=== PATIENT | male | born 1965 | race Caucasian/White ===

== ENCOUNTER 2016-09-26 12:57 | Emergency (ER) | payer OTHER ==
[~2016-09-26] VITALS: Ht 198.1 cm; Wt 90.0 kg
[~2016-09-26 12:57] MED LIST: ALBUAER3 INH; AMLO10TA2 PO; CARA1SUS3 PO; HYDR-3533 PO; PANT40TA3 PO; PROT40TA PO; SUCR1TAB PO; ZOFR4TAB3 SL
[2016-09-26 13:20] VITALS: BP 160/102; PULSE 89; RESP 18; TEMP 97.6; O2SAT 99
[2016-09-26] MEDS ORDERED: OXYC15TA PO (14:32)
[2016-09-26 14:33] VITALS: BP 166/105; PULSE 82; RESP 18; O2SAT 99
[2016-09-26] MEDS ORDERED: ONDANSETRON HCL 4 MG/2 ML VIAL IV PUSH ONE (15:00)
[2016-09-26] MEDS ORDERED: SODIUM CHLOR 0.9% 1000 ML INJ 1,000 ML IV ONE (15:00)
[2016-09-26] MEDS ORDERED: THIAMINE INJ 100 MG in SODIUM CHLORIDE 0.9% INJ 100 ML IV ONE (15:00)
--- NOTE | 2016-09-26 15:12 | PD ---
HPI Chief Complaint: Dizziness Time Seen by Provider: 14:53 Travel History International Travel<30 days: No Contact w/Intl Traveler<30days: No Traveled to known affect area: No History of Present Illness HPI This 51-year-old male is complaining of feeling lightheaded. He believes that he stood up and had a syncopal episode earlier. He has had some vomiting. He denies any chest pain. He is not aware of having syncope before. There is no witness to the syncope. He says that his last drink was 2 days ago. He does have a history of alcoholism. Review of chart shows that he was actually seen by Dr. Chang this morning and at that time he admitted that he had a pint of alcohol already. He has a history of cirrhosis secondary to alcohol, hepatitis B and hepatitis C. He says he has had worked illnesses in the past. He is complaining of some tremulousness. He has a history of GI bleed secondary to bleeding ulcer but denies recent vomiting of blood. He has a history of chronic pancreatitis PFSH Past Medical History Hx Anticoagulant Therapy: No Arthritis: Yes (RA) Asthma: No Blood Disorders: Yes (HEPATITIS B AND C NO TREATMENT) Anxiety: Yes Depression: Yes Heart Rhythm Problems: No Cancer: No Cardiovascular Problems: Yes (HTN) High Cholesterol: No Chemotherapy: No Chest Pain: Yes (PALPITATIONS) Congestive Heart Failure: No Cirrhosis: Yes COPD: Yes Cerebrovascular Accident: No Diabetes: No Diminished Hearing: No Endocrine: No Gastrointestinal Disorders: Yes (PANCREATITIS) GERD: Yes Genitourinary: No Headaches: Yes Hepatitis: Yes (B & C) Hiatal Hernia: No Heparin Induced Thrombocytopen: No Herniated Disk: Yes Hypertension: Yes Immune Disorder: No Implanted Vascular Access Dvce: Yes Insomnia: Yes Kidney Stones: No Musculoskeletal: Yes (CHRONIC BACK PAIN) Neurologic: Yes Psychiatric: Yes Reproductive: No Respiratory: No Integumentary: Yes (HX IV DRUG USE) Immunizations Current: Yes Migraines: Yes Pancreatitis: Yes (CHRONIC) Pneumonia: Yes Radiation Therapy: No Renal Failure: No Seizures: No Sickle Cell Disease: No Sleep Apnea: No Thyroid Disease: No Ulcer: No Tetanus Vaccination: < 5 Years PNEUMOCCOCAL Vaccine (Year): 2 Past Surgical History Abdominal Surgery: Yes (LIVER BIOPSY) AICD: No Arteriovenous Shunt: No Body Medical Devices: STEEL PLATE IN RIGHT ANKLE Cardiac Surgery: No Ear Surgery: No Endocrine Surgery: Yes (LIVER BIOPSY) Eye Surgery: No Genitourinary Surgery: No Gynecologic Surgery: No Hysterectomy: No Insulin Pump: No Joint Replacement: No Neurologic Surgery: No Oral Surgery: No Pacemaker: No Thoracic Surgery: Yes (CHEST TUBE- R/O TB 7 YEARS AGO) Tonsillectomy: Yes Other Surgery: Yes (RIGHT ANKLE PLATE/SCREWS) Social History Alcohol Use: No (none for 2 days) Tobacco Use: Yes (1/2 PPD) Substance Use: Yes (history of iv drug use) Allergies-Medications (Allergen,Severity, Reaction): Coded Allergies: Prednisone (Verified Allergy, Severe, Rash, 09/26/16) *MDRO Multi-Drug Resistant Organism (Verified Adverse Reaction, Unknown, ) MRSA arm wound 2008 MRSA PCR Screen negative 01/06/15 and 05/30/15. Cleared by Infection Control. Reported Meds & Prescriptions Reported Meds & Active Scripts Active Proair Hfa 8.5 GM Inh (Albuterol Sulfate) 90 Mcg/Act Aer 1 Puff INH Q4H PRN 108 mcg/actuation Amlodipine (Amlodipine Besylate) 10 Mg Tab 10 Mg PO DAILY Pantoprazole (Pantoprazole Sodium) 40 Mg Tab 40 Mg PO BID Reported Oxycodone (Oxycodone HCl) 15 Mg Tab 15 Mg PO Q8H PRN Sucralfate 1 Gm Tab 1 Gm PO QID on empty stomach Review of Systems General / Constitutional: No: Fever, Chills Eyes: No: Diploplia, Blurred Vision HENT: Positive: Lightheadedness, No: Headaches, Vertigo Cardiovascular: No: Chest Pain or Discomfort, Palpitations Respiratory: No: Cough, Shortness of Breath Gastrointestinal: Positive: Vomiting, Abdominal Pain Genitourinary: No: Urgency, Frequency Musculoskeletal: No: Myalgias Skin: No Rash Neurologic: No: Weakness Psychiatric: Positive: Substance Abuse Hematologic/Lymphatic: No: Easy Bruising Physical Exam Narrative GENERAL: Well-developed male SKIN: Warm and dry. He smells of alcohol HEAD: Atraumatic. Normocephalic. EYES: Pupils equal and round. No scleral icterus. No injection or drainage. ENT: No nasal bleeding or discharge. Mucous membranes pink and moist. NECK: Trachea midline. No JVD. CARDIOVASCULAR: Regular rate and rhythm. No murmur appreciated. RESPIRATORY: No accessory muscle use. Clear to auscultation. Breath sounds equal bilaterally. GASTROINTESTINAL: Abdomen soft, there is some epigastric tenderness, nondistended. Hepatic and splenic margins not palpable. MUSCULOSKELETAL: No obvious deformities. No clubbing. No cyanosis. No edema. NEUROLOGICAL: Awake and alert. No obvious cranial nerve deficits. Motor grossly within normal limits. Somewhat tremulous Normal speech. PSYCHIATRIC: Insight limited Data Data Last Documented VS Vital Signs Date Time Temp Pulse Resp B/P Pulse Ox O2 Delivery O2 Flow Rate FiO2 09/26/16 14:33 82 18 166/105 99 Room Air 09/26/16 13:20 97.6 Orders Electrocardiogram (09/26/16 15:00) Complete Blood Count With Diff (09/26/16 15:00) Comprehensive Metabolic Panel (09/26/16 15:00) Troponin I (09/26/16 15:00) Prothrombin Time / Inr (Pt) (09/26/16 15:00) Act Partial Throm Time (Ptt) (09/26/16 15:00) Lipase (09/26/16 15:00) Urinalysis - C+S If Indicated (09/26/16 15:00) Magnesium (Mg) (09/26/16 15:00) Alcohol (Ethanol) (09/26/16 15:00) Sodium Chlor 0.9% 1000 Ml Inj (Ns 1000 M (09/26/16 15:00) Thiamine Inj (Thiamine Inj) (09/26/16 15:00) Ondansetron Inj (Zofran Inj) (09/26/16 15:00) Pantoprazole Inj (Protonix Inj) (09/26/16 15:15) Ammonia (09/26/16 15:04) MDM Medical Decision Making Medical Screen Exam Complete: Yes Emergency Medical Condition: Yes Medical Record Reviewed: Yes Differential Diagnosis Differential includes gastritis, pancreatitis, alcohol withdrawal. Patient may have had a syncopal episode that nobody observed it. Narrative Course EKG shows normal sinus rhythm Lambert Sevilla MD Sep 26, 2016 15:12
[2016-09-26] MEDS ORDERED: PANTOPRAZOLE SODIUM 40 MG VIAL IV PUSH ONE (15:15)
[2016-09-26 15:19] LABS: AUTOMATED NEUTROPHIL # 2.2 TH/MM3 (1.8-7.7); BASOPHIL % 1.1 % (0.0-2.0); BLOOD, URINE NEG (NEG); EOSINOPHIL % 0.7 % (0.0-4.0); GLUCOSE,URINE NEG (NEG); KETONE, URINE TRACE mg/dL (NEG); LYMPH % 33.1 % (9.0-44.0); LYMPHOCYTE # 1.3 TH/MM3 (1.0-4.8); MEAN CELL VOLUME 73.7 FL (80.0-100.0); MEAN CORPUSCULAR HEMOGLOBIN 22.9 PG (27.0-34.0); MEAN CORPUSCULAR HGB CONC 31.1 % (32.0-36.0); MONO % 8.6 % (0.0-8.0); NEUT % 56.5 % (16.0-70.0); NITRITE,URINE NEG (NEG); PH, URINE 6.5 (5.0-8.5); PLATELET COUNT 148 TH/MM3 (150-450); RED BLOOD COUNT 4.48 MIL/MM3 (4.50-5.90); WHITE BLOOD COUNT 3.8 TH/MM3 (4.0-11.0)
[2016-09-26 15:20] LABS: HEMO FLAGS AUTO DIFF
[2016-09-26 15:25] LABS: METHOD OF COLLECTION CLEAN CATCH; RBC, URINE 0-3 /hpf (0-3); SQUAMOUS EPITHELIAL CELL URINE 0-5 /hpf (0-5); URINE COLOR YELLOW (YELLW/STRAW)
[2016-09-26 15:26] LABS: COMMENT (UR) CULT NOT INDICATED; CULTURE IF INDICATED CULT NOT INDICATED
[2016-09-26 15:27] LABS: CHLORIDE 100 MEQ/L (98-107); POTASSIUM 3.2 MEQ/L (3.5-5.1); SODIUM (NA) 140 MEQ/L (136-145)
[2016-09-26] MEDS ORDERED: POTASSIUM CHLOR 10 MEQ PREMIX 100 ML IV ONE (15:30)
[2016-09-26 15:31] LABS: ANION GAP 13 MEQ/L (5-15); BICARBONATE 26.8 MEQ/L (21.0-32.0); BLOOD UREA NITROGEN 7 MG/DL (7-18); MAGNESIUM 1.5 MG/DL (1.5-2.5)
[2016-09-26 15:32] LABS: APTT (PATIENT) 28.1 SEC (24.3-30.1); PROTHROMBIN TIME - PATIENT 10.7 SEC (9.8-11.6)
[2016-09-26 15:33] LABS: ALT (GPT) 39 U/L (12-78); AST (GOT) 120 U/L (15-37)
[2016-09-26 15:34] LABS: GLOMERULAR FILTRATION RATE 130 ML/MIN (>89)
[2016-09-26 15:35] LABS: TOTAL BILIRUBIN ADULT 0.7 MG/DL (0.2-1.0)
[2016-09-26 15:36] LABS: ALKALINE PHOSPHATASE 94 U/L (45-117)
[2016-09-26 15:45] LABS: SCAN/DIFF AUTO DIFF CONFIRMED
[2016-09-26] MEDS ORDERED: ZOFR4TAB3 SL (16:12)
[2016-09-26 16:14] VITALS: BP 169/101; PULSE 80; RESP 17; O2SAT 94
[2016-09-26] MEDS ORDERED: LORazepam 2 MG/ML VIAL IV PUSH ONE (16:15)
[2016-09-26 17:40] VITALS: BP 168/100; PULSE 88; RESP 17; O2SAT 97
--- NOTE | 2016-09-27 14:37 | EKG ---
Date Performed: 09/26/2016 Time Performed: 15:02:08 PTAGE: 51 years EKG: Sinus rhythm Normal ECG PREVIOUS TRACING : 09/17/2016 15.42 Since previous tracing, no significant change noted DOCTOR: Ariella Ndiaye Interpretating Date/Time 09/27/2016 14:34:32
== END 2016-09-26 18:09 | disposition home or self-care (01) ==
LOC: PHED 12:57
DX: R42 Dizziness and giddiness (principal); B19.10 Unspecified viral hepatitis B without hepatic coma; B19.20 Unspecified viral hepatitis C without hepatic coma; I10 Essential (primary) hypertension; R00.2 Palpitations; F17.210 Nicotine dependence, cigarettes, uncomplicated; F19.10 Other psychoactive substance abuse, uncomplicated; K74.60 Unspecified cirrhosis of liver; F10.10 Alcohol abuse, uncomplicated
CPT/HCPCS: 80053; 80320; 81001; 82140; 83690; 83735; 84484; 85025; 85610; 85730; 93005; C9113; J2060; J2405; J3411; J3480; J7030; 96361; 96365; 96367; 96375

== ENCOUNTER 2016-09-30 21:55 | Observation (INO) | payer OTHER ==
[~2016-09-30] VITALS: Ht 198.1 cm; Wt 90.4 kg
[~2016-09-30 21:55] MED LIST changes: -CARA1SUS3 PO; -HYDR-3533 PO; +OXYC15TA PO; -PROT40TA PO
[2016-09-30 21:58] VITALS: BP 139/84; PULSE 94; RESP 20; TEMP 97.7; O2SAT 99
[2016-09-30] MEDS ORDERED: SODIUM CHLOR 0.9% 1000 ML INJ 1,000 ML IV ONE (22:15)
[2016-09-30] MEDS ORDERED: LORazepam 2 MG/ML VIAL IV PUSH ONE (22:15)
[2016-09-30] MEDS ORDERED: SODIUM CHLORIDE 0.9% FLUSH 5 ML FLUSH IVF PRN (22:15)
[2016-09-30 22:30] VITALS: O2SAT 95
[2016-09-30 22:32] LABS: AUTOMATED NEUTROPHIL # 2.4 TH/MM3 (1.8-7.7); BASOPHIL # 0.1 TH/MM3 (0-0.2); BASOPHIL % 2.4 % (0.0-2.0); EOSINOPHIL # 0.1 TH/MM3 (0-0.4); EOSINOPHIL % 1.2 % (0.0-4.0); HEMATOCRIT 33.9 % (39.0-51.0); LYMPHOCYTE # 2.7 TH/MM3 (1.0-4.8); MEAN CELL VOLUME 72.9 FL (80.0-100.0); MEAN CORPUSCULAR HEMOGLOBIN 23.1 PG (27.0-34.0); MEAN CORPUSCULAR HGB CONC 31.6 % (32.0-36.0); MONO % 8.3 % (0.0-8.0); NEUT % 42.1 % (16.0-70.0); PLATELET COUNT 179 TH/MM3 (150-450); RED BLOOD COUNT 4.65 MIL/MM3 (4.50-5.90); RED CELL DISTRIBUTION WIDTH 23.3 % (11.6-17.2); WHITE BLOOD COUNT 5.8 TH/MM3 (4.0-11.0)
[2016-09-30 22:38] VITALS: BP_SYST 149; BP_SYST 153; BP_DIAS 100; BP_DIAS 95; PULSE 93; RESP 18; O2SAT 97
[2016-09-30 22:50] LABS: APTT (PATIENT) 26.3 SEC (24.3-30.1); PROTHROMBIN TIME - PATIENT 10.7 SEC (9.8-11.6)
[2016-09-30 22:53] LABS: HEMO FLAGS AUTO DIFF
--- NOTE | 2016-09-30 23:10 | RADHPO ---
EXAM DATE/TIME: 09/30/2016 23:02 [facility] COMPARISON: CHEST SINGLE AP, September 17, 2016, 15:44. INDICATIONS : Chest pain MEDICAL HISTORY : Chronic obstructive pulmonary disease. SURGICAL HISTORY : None. ENCOUNTER: Initial ACUITY: 1 day PAIN SCORE: 6/10 LOCATION: Bilateral chest FINDINGS: A single view of the chest demonstrates the lungs to be symmetrically aerated without evidence of mas s, infiltrate or effusion. Calcified granulomas. The cardiomediastinal contours are unremarkable. Os seous structures are intact. CONCLUSION: No acute disease. Larry Birch MD on September 30, 2016 at 23:07 Board Certified Radiologist. This report was verified electronically.
[2016-09-30 23:13] LABS: ALKALINE PHOSPHATASE 92 U/L (45-117); ALT (GPT) 50 U/L (12-78); ANION GAP 13 MEQ/L (5-15); AST (GOT) 171 U/L (15-37); BICARBONATE 27.3 MEQ/L (21.0-32.0); BLOOD UREA NITROGEN 9 MG/DL (7-18); CHLORIDE 107 MEQ/L (98-107); GLOMERULAR FILTRATION RATE 132 ML/MIN (>89); MAGNESIUM 1.9 MG/DL (1.5-2.5); SODIUM (NA) 147 MEQ/L (136-145); TOTAL BILIRUBIN ADULT 0.5 MG/DL (0.2-1.0)
[2016-09-30 23:16] LABS: POTASSIUM 2.7 MEQ/L (3.5-5.1)
--- NOTE | 2016-09-30 23:33 | RADHPO ---
EXAM DATE/TIME: 09/30/2016 23:06 [facility] COMPARISON: CT BRAIN W/O CONTRAST, March 03, 2015, 16:53. INDICATIONS : Cephalgia. RADIATION DOSE: 60.76 CTDIvol (mGy) MEDICAL HISTORY : Hypertension. Hepatitis B. Hepatitis C. SURGICAL HISTORY : None. ENCOUNTER: Initial ACUITY: 1 day PAIN SCALE: 8/10 LOCATION: cranial TECHNIQUE: Multiple contiguous axial images were obtained of the head. Using automated exposure control and adj ustment of the mA and/or kV according to patient size, radiation dose was kept as low as reasonably a chievable to obtain optimal diagnostic quality images. FINDINGS: CEREBRUM: The ventricles are normal for age. No evidence of midline shift, mass lesion, hemorrhage or acute in farction. No extra-axial fluid collections are seen. POSTERIOR FOSSA: The cerebellum and brainstem are intact. The 4th ventricle is midline. The cerebellopontine angle i s unremarkable. EXTRACRANIAL: The visualized portion of the orbits is intact. SKULL: The calvaria is intact. No evidence of skull fracture. CONCLUSION: Normal examination. Larry Birch MD on September 30, 2016 at 23:30 Board Certified Radiologist. This report was verified electronically.
[2016-09-30 23:35] VITALS: BP 156/96; PULSE 98; RESP 20; O2SAT 99
[2016-09-30 23:36] LABS: OVALOCYTES 1+ (NORMAL); PLATELET ESTIMATE SMEAR NORMAL (NORMAL); PLATELET MORPHOLOGY NORMAL (NORMAL); SCAN/DIFF AUTO DIFF CONFIRMED
--- NOTE | 2016-09-30 23:37 | RADHPO ---
EXAM DATE/TIME: 09/30/2016 23:06 [facility] COMPARISON: No previous studies available for comparison. INDICATIONS : Trauma. Fall. Neck pain. RADIATION DOSE: 22.99 CTDIvol (mGy) MEDICAL HISTORY : Hypertension. Hepatitis C. Hepatitis B. SURGICAL HISTORY : None. ENCOUNTER: Initial ACUITY: 1 day PAIN SCALE: 8/10 LOCATION: Bilateral neck TECHNIQUE: Volumetric scanning of the cervical spine was performed. Multiplanar reconstructions in the sagittal, coronal and oblique axial planes were performed. Using automated exposure control and adjustment o f the mA and/or kV according to patient size, radiation dose was kept as low as reasonably achievable to obtain optimal diagnostic quality images. FINDINGS: VERTEBRAE: Normal vertebral body height. No fracture. Multilevel degenerative changes and posterior disc osteoph yte complexes. No canal stenosis. ALIGNMENT: No evidence of subluxation. Facets are well aligned. Craniocervical junction intact. Emphysematous changes in the apices. Calcified granulomas are seen. CONCLUSION: No fracture or subluxation. Larry Birch MD on September 30, 2016 at 23:31 Board Certified Radiologist. This report was verified electronically.
[2016-10-01] VITALS (8 sets, daily range): BP systolic 117–171; BP diastolic 76–109; PULSE 80–100; RESP 16–20; TEMP 96.4–98.1; O2SAT 95–98
[2016-10-01] MEDS ORDERED: MORPHINE SULFATE 8 MG/ML INJ IV PUSH ONE (00:15)
[2016-10-01] MEDS ORDERED: POTASSIUM CHLOR 20 MEQ PREMIX 100 ML IV ONE (00:15)
[2016-10-01] MEDS ORDERED: ONDANSETRON HCL 4 MG/2 ML VIAL IV PUSH ONE (00:30)
[2016-10-01] MEDS ORDERED: LORazepam 2 MG/ML VIAL IV PUSH ONE (00:30)
[2016-10-01] MEDS ORDERED: SODIUM CHLOR 0.9% 1000 ML INJ 1,000 ML IV ONE (00:30)
--- NOTE | 2016-10-01 00:55 | PD ---
HPI Chief Complaint: Chest Pain Time Seen by Provider: 22:00 Travel History International Travel<30 days: No Contact w/Intl Traveler<30days: No Traveled to known affect area: No History of Present Illness HPI Patient is a 51-year-old male presents to emergency department today for multiple complaints. Patient states his first complaint to me was that he is feeling fatigued as well as tremors because he has not had a drink of alcohol in 2 days. Patient states that he normally drinks caffeine down to a gallon of vodka per day. Patient has had multiple presentations emergency department for alcoholism alcohol intoxication and related diseases. Patient's chief complaint nursing with some chest pain. Patient is also endorses some mild nausea vomiting. Patient states that he went to [facility] today because he was trying to get into a detox program and they stated that they could not treat his medical problems and referred him to the emergency department. Patient denies any extremity pain. After some time in emergency department patient also relates a history of slipping and falling and bumping his head. Cannot elaborate further. PFSH Past Medical History Hx Anticoagulant Therapy: No Arthritis: Yes (RA) Asthma: No Blood Disorders: Yes (HEPATITIS B AND C NO TREATMENT) Anxiety: Yes Depression: Yes Heart Rhythm Problems: No Cancer: No Cardiovascular Problems: Yes (HTN) High Cholesterol: No Chemotherapy: No Chest Pain: Yes (PALPITATIONS) Congestive Heart Failure: No Cirrhosis: Yes COPD: Yes Cerebrovascular Accident: No Diabetes: No Diminished Hearing: No Endocrine: No Gastrointestinal Disorders: Yes (PANCREATITIS) GERD: Yes Genitourinary: No Headaches: Yes Hepatitis: Yes (B & C) Hiatal Hernia: No Heparin Induced Thrombocytopen: No Herniated Disk: Yes Hypertension: Yes Immune Disorder: No Implanted Vascular Access Dvce: Yes Insomnia: Yes Kidney Stones: No Musculoskeletal: Yes (CHRONIC BACK PAIN) Neurologic: Yes Psychiatric: Yes Reproductive: No Respiratory: Yes (COPD) Integumentary: Yes (HX IV DRUG USE) Immunizations Current: Yes Migraines: Yes Pancreatitis: Yes Pneumonia: Yes Radiation Therapy: No Renal Failure: No Seizures: No Sickle Cell Disease: No Sleep Apnea: No Thyroid Disease: No Ulcer: No PNEUMOCCOCAL Vaccine (Year): 2 Past Surgical History Abdominal Surgery: Yes (LIVER BIOPSY) AICD: No Arteriovenous Shunt: No Body Medical Devices: STEEL PLATE IN RIGHT ANKLE Cardiac Surgery: No Ear Surgery: No Endocrine Surgery: Yes (LIVER BIOPSY) Eye Surgery: No Genitourinary Surgery: No Gynecologic Surgery: No Hysterectomy: No Insulin Pump: No Joint Replacement: No Neurologic Surgery: No Oral Surgery: No Pacemaker: No Thoracic Surgery: Yes (CHEST TUBE- R/O TB 2009) Tonsillectomy: Yes Other Surgery: Yes (RIGHT ANKLE PLATE/SCREWS) Social History Alcohol Use: Yes (QUIT 09/29/15 AT 11PM ) Tobacco Use: Yes (09/23 PPD) Substance Use: Yes (QUIT 2006) Allergies-Medications (Allergen,Severity, Reaction): Coded Allergies: Prednisone (Verified Allergy, Severe, Rash, 09/30/16) *MDRO Multi-Drug Resistant Organism (Verified Adverse Reaction, Unknown, ) MRSA arm wound 2008 MRSA PCR Screen negative 01/06/15 and 05/30/15. Cleared by Infection Control. Reported Meds & Prescriptions Reported Meds & Active Scripts Active Zofran Odt (Ondansetron Odt) 4 Mg Tab 4 Mg SL Q6HR PRN Proair Hfa 8.5 GM Inh (Albuterol Sulfate) 90 Mcg/Act Aer 1 Puff INH Q4H PRN 108 mcg/actuation Pantoprazole (Pantoprazole Sodium) 40 Mg Tab 40 Mg PO BID Reported Oxycodone (Oxycodone HCl) 15 Mg Tab 15 Mg PO Q8H PRN Sucralfate 1 Gm Tab 1 Gm PO QID on empty stomach Review of Systems Except as stated in HPI: all other systems reviewed are Neg Physical Exam Narrative GENERAL: Well-developed, thin, unkempt appears chronically ill in no apparent distress. SKIN: Warm and dry. HEAD: Atraumatic. Normocephalic. EYES: Pupils equal and round. No scleral icterus. No injection or drainage. ENT: No nasal bleeding or discharge. Mucous membranes pink and moist. NECK: Trachea midline. No JVD. CARDIOVASCULAR: Regular rate and rhythm. No murmur appreciated. 2+ bilateral equal pulses in all 4 extremities. No pedal edema. RESPIRATORY: No accessory muscle use. Clear to auscultation. Breath sounds equal bilaterally. GASTROINTESTINAL: Abdomen soft, non-tender, nondistended. Hepatic and splenic margins not palpable. Improvement is say her observed. Minimal abdominal distention negative fluid wave. Abdomen is minimally tender in the epigastric region. MUSCULOSKELETAL: No obvious deformities. No clubbing. No cyanosis. No edema. NEUROLOGICAL: Awake and alert. Cranial nerves II through XII grossly intact and nonfocal. 5 out of 5 strength in all 4 extremities. Normal speech. Patient does exhibit a mild tremor with his fingers outstretched. PSYCHIATRIC: Appropriate mood and affect; insight and judgment normal. Data Data Last Documented VS Vital Signs Date Time Temp Pulse Resp B/P Pulse Ox O2 Delivery O2 Flow Rate FiO2 10/01/16 00:35 97.7 98 18 148/101 98 Room Air Orders Electrocardiogram (09/30/16 22:15) Complete Blood Count With Diff (09/30/16 22:15) Comprehensive Metabolic Panel (09/30/16 22:15) Magnesium (Mg) (09/30/16 22:15) Prothrombin Time / Inr (Pt) (09/30/16 22:15) Act Partial Throm Time (Ptt) (09/30/16 22:15) Troponin I (09/30/16 22:15) Lipase (09/30/16 22:15) Chest, Single Ap (09/30/16 22:15) Ecg Monitoring (09/30/16 22:15) Bilateral Bp Monitoring (09/30/16 22:15) Iv Access Insert/Monitor (09/30/16 22:15) Oximetry (09/30/16 22:15) Oxygen Administration (09/30/16 22:15) Sodium Chloride 0.9% Flush (Ns Flush) (09/30/16 22:15) Ammonia (09/30/16 22:15) Sodium Chlor 0.9% 1000 Ml Inj (Ns 1000 M (09/30/16 22:15) Lorazepam Inj (Ativan Inj) (09/30/16 22:15) Ct Brain W/O Iv Contrast(Rout) (09/30/16 ) Ct Cerv Spine W/O Contrast (09/30/16 ) Alcohol (Ethanol) (09/30/16 22:23) Morphine Inj (Morphine Inj) (10/01/16 00:15) Potassium Chlor 20 Meq Premix (Kcl 20 Me (10/01/16 00:15) Ondansetron Inj (Zofran Inj) (10/01/16 00:30) Lorazepam Inj (Ativan Inj) (10/01/16 00:30) Sodium Chlor 0.9% 1000 Ml Inj (Ns 1000 M (10/01/16 00:30) Admit Order (Ed Use Only) (10/01/16 ) Place In Observation (10/01/16 ) Vital Signs (Adult) Q4H (10/01/16 00:48) Activity Oob With Assistance (10/01/16 00:48) ^ [employer] / Telemetry .CONTINUOUS (10/01/16 00:48) Diet Heart Healthy (10/01/16 Breakfast) Sodium Chloride 0.9% Flush (Ns Flush) (10/01/16 01:00) Sodium Chloride 0.9% Flush (Ns Flush) (10/01/16 09:00) Basic Metabolic Panel (Bmp) (10/02/16 06:00) Complete Blood Count With Diff (10/02/16 06:00) Case Management Consult (10/01/16 00:48) Naloxone Inj (Narcan Inj) (10/01/16 01:00) Alcohol Withdrawal Asmt-Ciwa Q4HX18 (10/01/16 00:48) Flumazenil Inj (Romazicon Inj) (10/01/16 01:00) Lorazepam (Ativan) (10/01/16 01:00) Lorazepam Inj (Ativan Inj) (10/01/16 01:00) Lorazepam (Ativan) (10/01/16 01:00) Lorazepam Inj (Ativan Inj) (10/01/16 01:00) Lorazepam Inj (Ativan Inj) (10/01/16 01:00) Lorazepam Inj (Ativan Inj) (10/01/16 01:00) Thiamine Inj (Thiamine Inj) (10/01/16 01:00) Thiamine Inj (Thiamine Inj) (10/01/16 09:00) Labs Laboratory Tests Test 09/30/16 22:23 White Blood Count 5.8 TH/MM3 Red Blood Count 4.65 MIL/MM3 Hemoglobin 10.7 GM/DL Hematocrit 33.9 % Mean Corpuscular Volume 72.9 FL Mean Corpuscular Hemoglobin 23.1 PG Mean Corpuscular Hemoglobin 31.6 % Concent Red Cell Distribution Width 23.3 % Platelet Count 179 TH/MM3 Mean Platelet Volume 8.0 FL Neutrophils (%) (Auto) 42.1 % Lymphocytes (%) (Auto) 46.0 % Monocytes (%) (Auto) 8.3 % Eosinophils (%) (Auto) 1.2 % Basophils (%) (Auto) 2.4 % Neutrophils # (Auto) 2.4 TH/MM3 Lymphocytes # (Auto) 2.7 TH/MM3 Monocytes # (Auto) 0.5 TH/MM3 Eosinophils # (Auto) 0.1 TH/MM3 Basophils # (Auto) 0.1 TH/MM3 CBC Comment AUTO DIFF Differential Comment AUTO DIFF CONFIRMED Platelet Estimate NORMAL Platelet Morphology Comment NORMAL Ovalocytes 1+ Prothrombin Time 10.7 SEC Prothromb Time International 1.0 RATIO Ratio Activated Partial 26.3 SEC Thromboplast Time Sodium Level 147 MEQ/L Potassium Level 2.7 MEQ/L Chloride Level 107 MEQ/L Carbon Dioxide Level 27.3 MEQ/L Anion Gap 13 MEQ/L Blood Urea Nitrogen 9 MG/DL Creatinine 0.64 MG/DL Estimat Glomerular Filtration 132 ML/MIN Rate Random Glucose 89 MG/DL Calcium Level 8.9 MG/DL Magnesium Level 1.9 MG/DL Total Bilirubin 0.5 MG/DL Aspartate Amino Transf 171 U/L (AST/SGOT) Alanine Aminotransferase 50 U/L (ALT/SGPT) Alkaline Phosphatase 92 U/L Ammonia 35 MCMOL/L Troponin I LESS THAN 0.02 NG/ML Total Protein 7.9 GM/DL Albumin 3.7 GM/DL Lipase 693 U/L Ethyl Alcohol Level 266 MG/DL MDM Medical Decision Making Medical Screen Exam Complete: Yes Emergency Medical Condition: Yes Interpretation(s) EKG shows sinus tachycardia rate of 105, normal axis and normal R-wave progression. Limited ST evaluation by motion artifact however no obvious ST segment changes are observed. Is a borderline EKG. Differential Diagnosis Mild alcohol withdrawal, electro-lead abnormality, pancreatitis, ACS, closed head injury, neck fracture, intoxication, Narrative Course Last 24 hours Impressions Chest X-Ray 09/30/16 2215 Signed Impressions: Service Date/Time: Friday, September 30, 2016 23:02 - CONCLUSION: No acute disease. Larry Birch MD Head CT 09/30/16 0000 Signed Impressions: Service Date/Time: Friday, September 30, 2016 23:06 - CONCLUSION: Normal examination. Larry Birch MD Cervical Spine CT 09/30/16 0000 Signed Impressions: Service Date/Time: Friday, September 30, 2016 23:06 - CONCLUSION: No fracture or subluxation. Larry iBrch MD Patient was roomed in the emergency department, he was given Ativan on arrival, labs do reveal a mildly elevated lipase to just less than 700. Potassium is 2.7. His alcohol level is 266. Troponin negative EKG is reassuring. CT examination shows no acute traumatic abnormality of both the head and C-spine. Patient after initial evaluation emergency Department did have some clear emesis. He was given more Ativan as well as Zofran and morphine for his abdominal pain. Discussed with him admission criteria and he is agreeable. Discussed with Dr. Basilio for observation status and she is agreeable. Diagnosis Primary Impression: Acute on chronic pancreatitis Additional Impressions: Alcohol intoxication Hypokalemia Closed head injury Admitting Information Admitting Physician Requests: Observation Condition: Stable Faizan Valle MD Oct 01, 2016 00:55
[2016-10-01] MEDS ORDERED: FLUMAZENIL 1 MG/10 ML VIAL IV PUSH PRN (01:00)
[2016-10-01] MEDS ORDERED: NALOXONE HCL 0.4 MG/ML AMP IV PRN (01:00)
[2016-10-01] MEDS ORDERED: LORazepam 2 MG/ML VIAL IV PUSH PRN ×3 (01:00)
[2016-10-01] MEDS ORDERED: THIAMINE INJ 100 MG in SODIUM CHLORIDE 0.9% INJ 100 ML IV ONE (01:00)
[2016-10-01] MEDS: POTASSIUM CHLOR 20 MEQ PREMIX 100 ML IV SCH ×2 (02:51→04:31)
[2016-10-01] MEDS: MORPHINE SULFATE 4 MG/ML INJ IV PUSH PRN ×2 (04:30→08:18)
[2016-10-01 05:54] LABS: CREATINE KINASE 104 U/L (39-308)
[2016-10-01] MEDS: LORazepam 2 MG/ML VIAL IV PUSH PRN ×2 (08:17→23:01)
[2016-10-01] MEDS ORDERED: THIAMINE INJ 100 MG in SODIUM CHLORIDE 0.9% INJ 100 ML IV SCH (09:00)
[2016-10-01] MEDS ORDERED: ALBUTEROL SULFATE 90 MCG/ACT HFA 8 GM INHALER INH PRN (11:00)
--- NOTE | 2016-10-01 11:03 | HHI.HP ---
HPI Service [facility] Primary Care Physician Unknown Admission Diagnosis CP, Pancreatitis, Alcoholism Diagnoses: Chief Complaint: Abdominal pain and elevated blood pressure Travel History International Travel<30 Days: No Contact w/Intl Traveler <30 Da: No Traveled to Known Affected Are: No History of Present Illness This patient is a 51-year-old gentleman who came to the emergency room overnight due to abdominal pain, associated with nausea and vomiting. Pain is 10 out of 10, relieved somewhat with oral medications including Roxicodone which he takes at home. Still going on for the last 2 days. He did come to the emergency room for further evaluation was found to have mildly elevated pancreatic enzymes (patient has chronic pancreatitis due to alcoholism). He notes no hematemesis or melena. His blood work has been relatively unremarkable. Patient did have some improvement in pain with IV morphine here in the emergency room. He does drink at least 1-1/2 gallons of vodka a day and smokes a half pack cigarettes a day. He is transiently homeless but currently is staying with friends. Patient was recommended for admission to the hospital due to abdominal pain and signs and symptoms of worsening pancreatitis also for elevated blood pressure. Patient says he is seeking help at [facility] for detoxification Review of Systems Constitutional: DENIES: Diaphoretic episodes, Fatigue, Fever, Weight gain, Weight loss, Chills, Dizziness, Change in appetite, Night Sweats Endocrine: DENIES: Heat/cold intolerance, Polydipsia, Polyuria, Polyphagia Eyes: DENIES: Blurred vision, Diplopia, Eye inflammation, Eye pain, Vision loss , Photosensitivity, Double Vision Ears, nose, mouth, throat: DENIES: Tinnitus, Hearing loss, Vertigo, Nasal discharge, Oral lesions, Throat pain, Hoarseness, Ear Pain, Running Nose, Epistaxis, Sinus Pain, Toothache, Odynophagia Respiratory: DENIES: Apneas, Cough, Snoring, Wheezing, Hemoptysis, Sputum production, Shortness of breath Cardiovascular: DENIES: Chest pain, Palpitations, Syncope, Dyspnea on Exertion , PND, Lower Extremity Edema, Orthopnea, Claudication Gastrointestinal: COMPLAINS OF: Abdominal pain, Nausea, Vomiting, DENIES: Black stools, Bloody stools, Constipation, Diarrhea, Difficulty Swallowing, Anorexia Genitourinary: DENIES: Sexual dysfunction, Urinary frequency, Urinary incontinence, Urgency, Hematuria, Dysuria, Nocturia, Penile Discharge, Testicular Pain, Testicular Swelling Immunologic/allergic: DENIES: Eczema, Urticaria Psychiatric: DENIES: Anxiety, Confusion, Mood changes, Depression, Hallucinations, Agitation, Suicidal Ideation, Homicidal Ideation, Delusions Past Family Social History Past Medical History History of GI bleed secondary to ulcer Hypertension Alcohol dependency Hepatitis B and C Past Surgical History Ankle surgery Reported Medications Reviewed in the medical record, poor adherence Allergies: Coded Allergies: Prednisone (Verified Allergy, Severe, Rash, 09/30/16) *MDRO Multi-Drug Resistant Organism (Verified Adverse Reaction, Unknown, ) MRSA arm wound 2008 MRSA PCR Screen negative 01/06/15 and 05/30/15. Cleared by Infection Control. Active Ordered Medications Reviewed in the medical record Family History Family history of diabetes, coronary disease Father History is unknown, mother has a history of anxiety Social History Drinks at least half a gallon of vodka daily, smokes half a pack of tobacco daily Lives independently but is transient Physical Exam Vital Signs Vital Signs Date Time Temp Pulse Resp B/P Pulse Ox O2 Delivery O2 Flow Rate FiO2 10/01/16 10:06 18 10/01/16 08:00 96.4 100 20 171/109 97 10/01/16 04:00 97.9 98 16 155/107 95 10/01/16 02:35 94 18 117/76 95 Room Air 10/01/16 02:00 18 10/01/16 01:35 95 18 142/88 95 Room Air 10/01/16 00:35 97.7 98 18 148/101 98 Room Air 09/30/16 23:35 98 20 156/96 99 Room Air 09/30/16 22:42 86 18 99 Room Air 09/30/16 22:38 93 18 149/95 97 Room Air 153/100 09/30/16 22:30 96 Room Air 09/30/16 22:30 95 Room Air 09/30/16 21:58 97.7 94 20 139/84 99 Physical Exam GENERAL: This is a well-nourished, well-developed patient, in no apparent distress. SKIN: No rashes, ecchymoses or lesions. Cool and dry. HEAD: Atraumatic. Normocephalic. No temporal or scalp tenderness. EYES: Pupils equal round and reactive. Extraocular motions intact. No scleral icterus. No injection or drainage. ENT: Nose without bleeding, purulent drainage or septal hematoma. Throat without erythema, tonsillar hypertrophy or exudate. Uvula midline. Airway patent. NECK: Trachea midline. No JVD or lymphadenopathy. Supple, nontender, no meningeal signs. CARDIOVASCULAR: Regular rate and rhythm without murmurs, gallops, or rubs. RESPIRATORY: Clear to auscultation. Breath sounds equal bilaterally. No wheezes , rales, or rhonchi. GASTROINTESTINAL: Abdomen soft, non-tender, nondistended. No hepato-splenomegaly , or palpable masses. No guarding. MUSCULOSKELETAL: Extremities without clubbing, cyanosis, or edema. No joint tenderness, effusion, or edema noted. No calf tenderness. Negative Homans sign bilaterally. NEUROLOGICAL: Awake and alert. Cranial nerves II through XII intact. Motor and sensory grossly within normal limits. Five out of 5 muscle strength in all muscle groups. Normal speech. Laboratory Laboratory Tests Test 09/30/16 10/01/16 22:23 04:40 White Blood Count 5.8 Red Blood Count 4.65 Hemoglobin 10.7 Hematocrit 33.9 Mean Corpuscular Volume 72.9 Mean Corpuscular Hemoglobin 23.1 Mean Corpuscular Hemoglobin 31.6 Concent Red Cell Distribution Width 23.3 Platelet Count 179 Mean Platelet Volume 8.0 Neutrophils (%) (Auto) 42.1 Lymphocytes (%) (Auto) 46.0 Monocytes (%) (Auto) 8.3 Eosinophils (%) (Auto) 1.2 Basophils (%) (Auto) 2.4 Neutrophils # (Auto) 2.4 Lymphocytes # (Auto) 2.7 Monocytes # (Auto) 0.5 Eosinophils # (Auto) 0.1 Basophils # (Auto) 0.1 CBC Comment AUTO DIFF Differential Comment AUTO DIFF CONFIRMED Platelet Estimate NORMAL Platelet Morphology Comment NORMAL Ovalocytes 1+ Prothrombin Time 10.7 Prothromb Time International 1.0 Ratio Activated Partial 26.3 Thromboplast Time Sodium Level 147 Potassium Level 2.7 Chloride Level 107 Carbon Dioxide Level 27.3 Anion Gap 13 Blood Urea Nitrogen 9 Creatinine 0.64 Estimat Glomerular Filtration 132 Rate Random Glucose 89 Calcium Level 8.9 Magnesium Level 1.9 Total Bilirubin 0.5 Aspartate Amino Transf 171 (AST/SGOT) Alanine Aminotransferase 50 (ALT/SGPT) Alkaline Phosphatase 92 Ammonia 35 Troponin I LESS THAN 0.02 LESS THAN 0.02 Total Protein 7.9 Albumin 3.7 Lipase 693 Ethyl Alcohol Level 266 Total Creatine Kinase 104 Result Diagram: 09/30/16222209/30/162222 Imaging Last Impressions Chest X-Ray 09/30/162214 Signed Impressions: Service Date/Time: Friday, September 30, 2016 23:02 - CONCLUSION: No acute disease. Larry Birch MD Head CT 09/30/16 0000 Signed Impressions: Service Date/Time: Friday, September 30, 2016 23:06 - CONCLUSION: Normal examination. Larry Birch MD Cervical Spine CT 09/30/16 0000 Signed Impressions: Service Date/Time: Friday, September 30, 2016 23:06 - CONCLUSION: No fracture or subluxation. Larry Birch MD Assessment and Plan Problem List: (1) Noncompliance ICD Code: Z91.19 Status: Acute Plan: Patient will need to continue with outpatient management with his primary care team. He'll also need to continue with follow-up for alcohol dependency issues (2) Pancreatitis ICD Code: K85.9 Status: Acute Plan: Improved, tolerating diet. Continue with oral pain medication (3) HTN (hypertension) ICD Code: I10 Status: Chronic Plan: We'll add Coreg, patient will continue with [facility] protocol (4) Hepatitis B ICD Code: B16.9 Status: Chronic Plan: Continue with outpatient management (5) Hepatitis C ICD Code: B19.20 Status: Chronic Plan: Continue with outpatient management Assessment and Plan Continue to follow and observation Code Status Full code Discussed Condition With Patient Lisa Santos MD Oct 01, 2016 11:03
[2016-10-01] MEDS: LORazepam 2 MG TAB PO PRN ×2 (11:54→21:12)
[2016-10-01] MEDS: SUCRALFATE 1 GM TAB PO SCH ×3 (11:54→21:01)
[2016-10-01] MEDS: ACETAMINOPHEN/HYDROcodone 325 MG/7.5 MG TAB PO PRN ×2 (11:55→18:13)
[2016-10-01] MEDS: SODIUM CHLORIDE 0.9% FLUSH 5 ML FLUSH FLUSH SCH ×2 (11:55→21:02)
[2016-10-01 12:01] LABS: CREATINE KINASE 92 U/L (39-308)
[2016-10-01] MEDS: CARVEDILOL 12.5 MG TAB PO SCH ×2 (12:02→21:02)
--- NOTE | 2016-10-01 14:00 | EKG ---
Date Performed: 10/01/2016 Time Performed: 04:49:48 PTAGE: 51 years EKG: Sinus rhythm Since previous tracing, no significant change noted Normal ECG PREVIOUS TRACING : 09/30/2016 21.44 DOCTOR: David Roper Interpretating Date/Time 10/01/2016 13:56:54
--- NOTE | 2016-10-01 14:00 | EKG ---
Date Performed: 09/30/2016 Time Performed: 21:44:36 PTAGE: 51 years EKG: Sinus tachycardia. Inferior T wave changes are nonspecific Since previous tracing, no signi ficant change noted Borderline ECG PREVIOUS TRACING : 09/26/2016 15.02 DOCTOR: David Roper Interpretating Date/Time 10/01/2016 13:57:08
[2016-10-01] MEDS: LORazepam 1 MG TAB PO PRN (17:08)
[2016-10-01] MEDS: POTASSIUM PHOSPHATE MONOBASIC 500 MG TAB PO SCH (21:01)
[2016-10-01] MEDS: PANTOPRAZOLE SOD 40 MG DELAYED RELEASE TAB PO SCH (21:02)
[2016-10-01] MEDS ORDERED: cloNIDine HCL 0.1 MG TAB PO ONE (21:45)
[2016-10-01] MEDS: SODIUM CHLORIDE 0.9% FLUSH 5 ML FLUSH FLUSH PRN (23:02)
[2016-10-02] VITALS: BP 166/92; PULSE 76; RESP 18; TEMP 98.6; O2SAT 97
[2016-10-02] MEDS: ACETAMINOPHEN/HYDROcodone 325 MG/7.5 MG TAB PO PRN ×2 (00:38→06:34)
[2016-10-02] MEDS: SODIUM CHLORIDE 0.9% FLUSH 5 ML FLUSH FLUSH PRN ×2 (02:50→06:34)
[2016-10-02] MEDS: LORazepam 2 MG/ML VIAL IV PUSH PRN ×2 (02:50→06:33)
[2016-10-02 04:00] VITALS: BP 154/96; PULSE 80; RESP 18; TEMP 96.9; O2SAT 97
[2016-10-02] MEDS: SUCRALFATE 1 GM TAB PO SCH ×2 (06:34→09:37)
[2016-10-02 06:40] LABS: AUTOMATED NEUTROPHIL # 2.3 TH/MM3 (1.8-7.7); BASOPHIL % 0.7 % (0.0-2.0); EOSINOPHIL # 0.1 TH/MM3 (0-0.4); EOSINOPHIL % 3.2 % (0.0-4.0); HEMATOCRIT 33.4 % (39.0-51.0); LYMPH % 36.8 % (9.0-44.0); LYMPHOCYTE # 1.7 TH/MM3 (1.0-4.8); MEAN CELL VOLUME 73.7 FL (80.0-100.0); MEAN CORPUSCULAR HEMOGLOBIN 22.6 PG (27.0-34.0); MEAN CORPUSCULAR HGB CONC 30.6 % (32.0-36.0); MONO % 8.5 % (0.0-8.0); NEUT % 50.8 % (16.0-70.0); PLATELET COUNT 141 TH/MM3 (150-450); RED BLOOD COUNT 4.53 MIL/MM3 (4.50-5.90); RED CELL DISTRIBUTION WIDTH 22.8 % (11.6-17.2); WHITE BLOOD COUNT 4.5 TH/MM3 (4.0-11.0)
[2016-10-02 06:44] LABS: HEMO FLAGS AUTO DIFF
[2016-10-02 07:02] LABS: POTASSIUM 3.2 MEQ/L (3.5-5.1)
[2016-10-02 07:05] LABS: BICARBONATE 30.9 MEQ/L (21.0-32.0); MAGNESIUM 1.6 MG/DL (1.5-2.5)
[2016-10-02 07:17] LABS: OVALOCYTES 1+ (NORMAL); SCAN/DIFF AUTO DIFF CONFIRMED
[2016-10-02 08:10] VITALS: BP 133/90; PULSE 82; RESP 17; TEMP 96.7; O2SAT 95
[2016-10-02] MEDS ORDERED: POTASSIUM CHLORIDE 10 MEQ CONTROLLED RELEASE TAB PO ONE (08:45)
[2016-10-02] MEDS ORDERED: LOSARTAN 25 MG TAB PO SCH (09:00)
[2016-10-02] MEDS ORDERED: MULTIVITAMIN TAB PO SCH (09:00)
[2016-10-02] MEDS ORDERED: THIAMINE HCL 100 MG TAB PO SCH (09:00)
[2016-10-02] MEDS: POTASSIUM PHOSPHATE MONOBASIC 500 MG TAB PO SCH (09:37)
[2016-10-02] MEDS: CARVEDILOL 12.5 MG TAB PO SCH (09:37)
[2016-10-02] MEDS: SODIUM CHLORIDE 0.9% FLUSH 5 ML FLUSH FLUSH SCH (09:37)
[2016-10-02] MEDS: PANTOPRAZOLE SOD 40 MG DELAYED RELEASE TAB PO SCH (09:37)
[2016-10-02] MEDS: LORazepam 1 MG TAB PO PRN (09:38)
[2016-10-02] MEDS ORDERED: OXYC1TAB13 PO (09:39)
[2016-10-02] MEDS ORDERED: CARV12.5 PO (09:39)
[2016-10-02] MEDS ORDERED: COZA25TA PO (09:39)
--- NOTE | 2016-10-02 09:41 | HHI.DS ---
Discharge Summary Admission Date Oct 01, 2016 at 00:50 Discharge Date: Oct 02, 2016 Admitting Diagnosis CP, Pancreatitis, Alcoholism (1) Noncompliance ICD Code: Z91.19 (2) Pancreatitis ICD Code: K85.9 (3) HTN (hypertension) ICD Code: I10 (4) Hepatitis B ICD Code: B16.9 (5) Hepatitis C ICD Code: B19.20 Procedures none Brief History - From Admission This patient is a 51-year-old gentleman who came to the emergency room overnight due to abdominal pain, associated with nausea and vomiting. Pain is 10 out of 10, relieved somewhat with oral medications including Roxicodone which he takes at home. Still going on for the last 2 days. He did come to the emergency room for further evaluation was found to have mildly elevated pancreatic enzymes (patient has chronic pancreatitis due to alcoholism). He notes no hematemesis or melena. His blood work has been relatively unremarkable. Patient did have some improvement in pain with IV morphine here in the emergency room. He does drink at least 1-1/2 gallons of vodka a day and smokes a half pack cigarettes a day. He is transiently homeless but currently is staying with friends. Patient was recommended for admission to the hospital due to abdominal pain and signs and symptoms of worsening pancreatitis also for elevated blood pressure. Patient says he is seeking help at [facility] for detoxification CBC/BMP: 10/02/16 0530 10/02/16 0530 Significant Findings Laboratory Tests Test 09/30/16 10/01/16 10/01/16 10/02/16 22:23 04:40 11:00 05:30 Hemoglobin 10.7 GM/DL 10.2 GM/DL (13.0-17.0) (13.0-17.0) Hematocrit 33.9 % 33.4 % (39.0-51.0) (39.0-51.0) Mean Corpuscular Volume 72.9 FL 73.7 FL (80.0-100.0) (80.0-100.0) Mean Corpuscular Hemoglobin 23.1 PG 22.6 PG (27.0-34.0) (27.0-34.0) Mean Corpuscular Hemoglobin 31.6 % 30.6 % Concent (32.0-36.0) (32.0-36.0) Red Cell Distribution Width 23.3 % 22.8 % (11.6-17.2) (11.6-17.2) Lymphocytes (%) (Auto) 46.0 % (9.0-44.0) Monocytes (%) (Auto) 8.3 % (0.0-8.0) 8.5 % (0.0-8.0) Basophils (%) (Auto) 2.4 % (0.0-2.0) Ovalocytes 1+ (NORMAL) 1+ (NORMAL) Sodium Level 147 MEQ/L (136-145) Potassium Level 2.7 MEQ/L 3.2 MEQ/L (3.5-5.1) (3.5-5.1) Aspartate Amino Transf 171 U/L (15-37) (AST/SGOT) Ammonia 35 MCMOL/L (11-32) Troponin I LESS THAN 0.02 LESS THAN 0.02 LESS THAN 0.02 NG/ML NG/ML NG/ML (0.02-0.05) (0.02-0.05) (0.02-0.05) Lipase 693 U/L (73-393) Ethyl Alcohol Level 266 MG/DL (0-5) Platelet Count 141 TH/MM3 (150-450) Blood Urea Nitrogen 5 MG/DL (7-18) Random Glucose 135 MG/DL (74-106) Imaging Last Impressions Chest X-Ray 09/30/16 121 Signed Impressions: Service Date/Time: Friday, September 30, 2016 23:02 - CONCLUSION: No acute disease. Larry Birch MD Head CT 09/30/16 0000 Signed Impressions: Service Date/Time: Friday, September 30, 2016 23:06 - CONCLUSION: Normal examination. Larry Birch MD Cervical Spine CT 09/30/16 0000 Signed Impressions: Service Date/Time: Friday, September 30, 2016 23:06 - CONCLUSION: No fracture or subluxation. Larry Birch MD PE at Discharge GENERAL: This is a well-nourished, well-developed patient, in no apparent distress. CARDIOVASCULAR: Regular rate and rhythm without murmurs, gallops, or rubs. RESPIRATORY: Clear to auscultation. Breath sounds equal bilaterally. No wheezes , rales, or rhonchi. GASTROINTESTINAL: Abdomen soft, non-tender, nondistended. Normal active bowel sounds MUSCULOSKELETAL: Extremities without clubbing, cyanosis, or edema. NEURO: Alert & Oriented x4 to person, place, time, situation. Moves all ext x4 Pt update on day of discharge Patient seen and evaluated today in follow-up for hypertension and history of alcohol dependency. No evidence of withdrawal at this time. Blood pressures improved. Discharge plans discussed with patient. He is a bit hypokalemic and this will be replaced. Discharge plans also discussed with Konstantin JAMES Hospital Course This patient is a 51-year-old gentleman with long-standing history of alcohol intoxication and chronic pain. He did come in with mild evidence of pancreatitis as well as elevated blood pressure. This was treated with pain medication and with all blood pressure medications. Patient did well and was discharged home Pt Condition on Discharge: Good Discharge Disposition: Discharge Home Discharge Time: > 30 minutes Discharge Instructions Speech Therapy-Diet Recommends: Regular Activities you can perform: Regular-No Restrictions New Medications: Oxycodone (Roxicodone) 5 Mg Tab 5 MG PO Q6H PRN PAIN #20 Ref 0 TAB Carvedilol (Coreg) 12.5 Mg Tab 12.5 MG PO Q12HR Blood Pressure Management #62 TAB Losartan (Cozaar) 25 Mg Tab 25 MG PO DAILY Blood Pressure Management #31 TAB Continued Medications: Albuterol 8.5 GM Inh (Proair Hfa 8.5 GM Inh) 90 Mcg/Act Aer 1 PUFF INH Q4H 108 mcg/actuation PRN SHORTNESS OF BREATH #1 Ref 2 INHALER Ondansetron Odt (Zofran Odt) 4 Mg Tab 4 MG SL Q6HR PRN Nausea/Vomiting #10 Ref 0 TAB Oxycodone (Oxycodone) 15 Mg Tab 15 MG PO Q8H PRN PAIN Ref 0 TAB Pantoprazole (Pantoprazole) 40 Mg Tab 40 MG PO BID Reflux #30 Ref 4 TAB Sucralfate (Sucralfate) 1 Gm Tab 1 GM PO QID on empty stomach Duodenal ulcer #120 Ref 0 TAB Lisa Santose MD Oct 02, 2016 09:41
--- NOTE | 2016-10-02 22:52 | EKG ---
Date Performed: 10/01/2016 Time Performed: 11:01:14 PTAGE: 51 years EKG: Sinus rhythm Normal ECG PREVIOUS TRACING : 10/01/2016 04.49 Compared to prior tracing no significant change DOCTOR: John Alexander Interpretating Date/Time 10/02/2016 22:48:56
== END 2016-10-02 10:48 | disposition home or self-care (01) ==
LOC: PHED 21:55 → PHEDA 10-01 00:50 → PH3A 10-01 02:58
PROVIDERS: ADMIT Hospitalist; ATTEND Hospitalist
DX: R07.89 Other chest pain (principal); K85.90 Acute pancreatitis without necrosis or infection, unspecified; K86.0 Alcohol-induced chronic pancreatitis; B19.10 Unspecified viral hepatitis B without hepatic coma; B19.20 Unspecified viral hepatitis C without hepatic coma; E87.6 Hypokalemia; I10 Essential (primary) hypertension; J44.9 Chronic obstructive pulmonary disease, unspecified; S09.90XA Unspecified injury of head, initial encounter; K21.9 Gastro-esophageal reflux disease without esophagitis; K74.60 Unspecified cirrhosis of liver; M19.90 Unspecified osteoarthritis, unspecified site; Z72.0 Tobacco use; Y90.8 Blood alcohol level of 240 mg/100 ml or more; F10.229 Alcohol dependence with intoxication, unspecified; Z91.19 Patient's noncompliance with other medical treatment and regimen
CPT/HCPCS: 70450; 71010; 72125; 80048; 80053; 80320; 82140; 82550; 83690; 83735; 84484; 85025; 85610; 85730; 93005; 96361; 96365; 96375; 96376; 99285; G0378; J2060; J2270; J2405; J3411; J3480; J7030

== ENCOUNTER 2016-10-07 20:39 | Emergency (ER) | payer OTHER ==
[~2016-10-07] VITALS: Ht 198.1 cm; Wt 100.0 kg
[~2016-10-07 20:39] MED LIST changes: -AMLO10TA2 PO; +CARV12.5 PO; +COZA25TA PO; +OXYC1TAB13 PO
[2016-10-07 20:48] VITALS: BP 118/76; PULSE 87; RESP 16; TEMP 97.5; O2SAT 97
[2016-10-07] MEDS ORDERED: AMLO10TA2 PO (21:00)
--- NOTE | 2016-10-07 21:25 | PD ---
HPI Chief Complaint: Injury Time Seen by Provider: 21:19 Travel History International Travel<30 days: No Contact w/Intl Traveler<30days: No Traveled to known affect area: No History of Present Illness HPI 51-year-old [id number] white male presents to emergency department by EMS with complaints of right hand pain. He states that he had punched a wall in anger. He has broken this hand in the past. He states the pain is moderate. He also states that he is an alcoholic and will like to go to detox. No suicidal homicidal ideation. He denies any numbness, tingling or weakness. He is up-to-date with immunizations. PFSH Past Medical History Hx Anticoagulant Therapy: No Arthritis: Yes (RA) Asthma: No Blood Disorders: Yes (HEPATITIS B AND C NO TREATMENT) Anxiety: Yes Depression: Yes Heart Rhythm Problems: No Cancer: No Cardiovascular Problems: Yes (HTN) High Cholesterol: No Chemotherapy: No Chest Pain: Yes (PALPITATIONS) Congestive Heart Failure: No Cirrhosis: Yes COPD: Yes Cerebrovascular Accident: No Diabetes: No Diminished Hearing: No Endocrine: No Gastrointestinal Disorders: Yes (PANCREATITIS) GERD: Yes Genitourinary: No Headaches: Yes Hepatitis: Yes (B & C) Hiatal Hernia: No Heparin Induced Thrombocytopen: No Herniated Disk: Yes Hypertension: Yes Immune Disorder: No Implanted Vascular Access Dvce: Yes Insomnia: Yes Kidney Stones: No Musculoskeletal: Yes (CHRONIC BACK PAIN) Neurologic: Yes Psychiatric: Yes Reproductive: No Respiratory: Yes (COPD) Integumentary: Yes (HX IV DRUG USE) Immunizations Current: Yes Migraines: Yes Pancreatitis: Yes Pneumonia: Yes Radiation Therapy: No Renal Failure: No Seizures: No Sickle Cell Disease: No Sleep Apnea: No Thyroid Disease: No Ulcer: No Tetanus Vaccination: < 5 Years PNEUMOCCOCAL Vaccine (Year): 2 Past Surgical History Abdominal Surgery: Yes (LIVER BIOPSY) AICD: No Arteriovenous Shunt: No Body Medical Devices: STEEL PLATE IN RIGHT ANKLE Cardiac Surgery: No Ear Surgery: No Endocrine Surgery: Yes (LIVER BIOPSY) Eye Surgery: No Genitourinary Surgery: No Gynecologic Surgery: No Hysterectomy: No Insulin Pump: No Joint Replacement: No Neurologic Surgery: No Oral Surgery: No Pacemaker: No Thoracic Surgery: Yes (CHEST TUBE- R/O TB 2009) Tonsillectomy: Yes Other Surgery: Yes (RIGHT ANKLE PLATE/SCREWS) Social History Alcohol Use: Yes Tobacco Use: Yes (09/23 PPD) Substance Use: Yes (QUIT 2006) Allergies-Medications (Allergen,Severity, Reaction): Coded Allergies: Prednisone (Verified Allergy, Severe, Rash, 10/07/16) *MDRO Multi-Drug Resistant Organism (Verified Adverse Reaction, Unknown, Cleared, 10/01/16) MRSA arm wound 2008 MRSA PCR Screen negative 01/06/15 and 05/30/15. Cleared by Infection Control. Reported Meds & Prescriptions Reported Meds & Active Scripts Active Zofran Odt (Ondansetron Odt) 4 Mg Tab 4 Mg SL Q6HR PRN Proair Hfa 8.5 GM Inh (Albuterol Sulfate) 90 Mcg/Act Aer 1 Puff INH Q4H PRN 108 mcg/actuation Pantoprazole (Pantoprazole Sodium) 40 Mg Tab 40 Mg PO BID Reported Amlodipine (Amlodipine Besylate) 10 Mg Tab 10 Mg PO DAILY Oxycodone (Oxycodone HCl) 15 Mg Tab 15 Mg PO Q8H PRN Sucralfate 1 Gm Tab 1 Gm PO QID on empty stomach Review of Systems Except as stated in HPI: all other systems reviewed are Neg Physical Exam Narrative GENERAL: Well-developed, well-nourished in no acute distress. Nontoxic appearing. HEAD: Normocephalic, atraumatic. EYES: Pupils equal round and reactive. Extraocular motions intact. No scleral icterus. No injection or drainage. ENT: TMs clear without erythema. The external auditory canals clear. Nose: clear . Posterior pharynx is pink and moist. No tonsillar edema or exudate. Uvula midline. Airway patent. NECK: Trachea midline.Supple, nontender, moves head freely. No central bony tenderness or spasm. CARDIOVASCULAR: Regular rate and rhythm without murmurs, gallops, or rubs. RESPIRATORY: Clear to auscultation. Breath sounds equal bilaterally. No wheezes , rales, or rhonchi. GASTROINTESTINAL: Abdomen soft, non-tender, nondistended. No hepato-splenomegaly , or palpable masses. No guarding. EXTREMITIES: No clubbing, cyanosis, or edema. Examination of the right hand reveals an old deformity of the fifth metacarpal. He has an abrasion over the mid fifth metacarpal with some mild ecchymosis. He is able to extend and flex his fingers freely. Mild swelling. No pain in the thumb, index, middle, ring or little finger. No pain in the wrist, elbow or shoulder. The left upper extremity as well as lower extremities are unremarkable for acute bony tenderness or deformity. BACK: Nontender without deformity or crepitance. No flank tenderness. Data Data Last Documented VS Vital Signs Date Time Temp Pulse Resp B/P Pulse Ox O2 Delivery O2 Flow Rate FiO2 10/07/16 20:50 16 97 10/07/16 20:48 97.5 87 118/76 Orders Hand, Complete ([id number]) (10/07/16 20:54) Ice/Cold Pack (10/07/16 20:54) MDM Medical Decision Making Medical Screen Exam Complete: Yes Emergency Medical Condition: Yes Medical Record Reviewed: Yes Interpretation(s) Right hand: Negative for acute fracture. He has an old fracture the fifth metacarpal. Differential Diagnosis MDM: High Differential diagnoses: Fracture, sprain, strain, dislocation, contusion, neurovascular injury Narrative Course The patient is made aware that there are no detox beds available this evening. He is encouraged to follow up and not o'clock in the morning to [facility] for detox. Diagnosis Primary Impression: Contusion of right hand Qualified Code: S60.221A - Contusion of right hand, initial encounter Additional Impression: Alcohol dependence Qualified Code: F10.24 - Alcohol dependence with alcohol-induced mood disorder Patient Instructions: General Instructions Additional Instructions: Rest. Increase fluids. Avoid alcohol. Avoid illegal substances. Tylenol for pain. Daily wound care with soap, water, Neosporin. Follow-up with [facility] for detox. Do not operate a car or any heavy machinery under the influence of alcohol or drugs. Follow-up with a medical doctor this week. Return to the ER for emergencies Med/Other Pt SpecificInfo: Wound Care Disposition: 01 DISCHARGE HOME Condition: Stable Du Howe Oct 07, 2016 21:24
--- NOTE | 2016-10-07 21:27 | RADRPT ---
EXAM DATE/TIME: 10/07/2016 21:10 [place] COMPARISON: No previous studies available for comparison. INDICATIONS : Right hand pain. Punching injury. MEDICAL HISTORY : Hypertension. Hepatitis C. Hepatitis B. SURGICAL HISTORY : ENCOUNTER: Initial ACUITY: 1 day PAIN SCORE: 8/10 LOCATION: Right hand, 5th metacarpal FINDINGS: There is an old, healed fracture with mild volar angulation deformity, distal shaft of the fifth meta carpal. A 5 mm, nonacute appearing ossific fragment is seen ulnar aspect base of the same bone. I don 't see an acute fracture. There are no subluxations. CONCLUSION: Nonacute fractures of the fifth metacarpal as above. I don't see an acute fracture. Wesly Roblero MD on October 07, 2016 at 21:24 Board Certified Radiologist. This report was verified electronically.
[2016-10-07 21:45] VITALS: BP 126/63; TEMP 98.4
[2016-10-07] MEDS ORDERED: ACETAMINOPHEN 325 MG TAB PO ONE (21:45)
== END 2016-10-07 21:46 | disposition home or self-care (01) ==
LOC: NEPB 20:39
DX: S60.221A Contusion of right hand, initial encounter (principal); M79.641 Pain in right hand; W22.01XA Walked into wall, initial encounter; I10 Essential (primary) hypertension; J44.9 Chronic obstructive pulmonary disease, unspecified; K21.9 Gastro-esophageal reflux disease without esophagitis
CPT/HCPCS: 73130; 99283

== ENCOUNTER 2016-11-18 06:15 | Emergency (ER) | payer OTHER ==
[~2016-11-18] VITALS: Ht 198.1 cm; Wt 91.6 kg
[~2016-11-18 06:15] MED LIST changes: +AMLO10TA2 PO; -CARV12.5 PO; -COZA25TA PO; -OXYC1TAB13 PO
[2016-11-18 06:23] VITALS: BP 154/84; PULSE 102; RESP 18; TEMP 97.8; O2SAT 100
[2016-11-18] MEDS ORDERED: SODIUM CHLORIDE 0.9% FLUSH 5 ML FLUSH IVF PRN (06:30)
[2016-11-18] MEDS ORDERED: SODIUM CHLOR 0.9% 1000 ML INJ 1,000 ML IV ONE (06:30)
[2016-11-18] MEDS ORDERED: ASPIRIN 81 MG CHEW TAB PO ONE (06:30)
--- NOTE | 2016-11-18 06:34 | PD ---
HPI Chief Complaint: Chest Pain Time Seen by Provider: 06:29 Travel History International Travel<30 days: No Contact w/Intl Traveler<30days: No Traveled to known affect area: No History of Present Illness HPI 51-year-old male here for evaluation of chest pain. Patient reports that chest pain started at around 7 PM last night, sharp, left-sided, constant. He denies history of cardiac disease. Patient also reports nausea and vomiting. Emesis is clear, nonbloody. No melena or hematochezia. No paresthesias or motor deficits. No fevers, chills, cough, recent illness. No history of DVT or PE. Chart review shows that the patient has been here several times in the past for chest pain as well as alcohol intoxication, admitted in September of this year for pancreatitis and chest pain. Patient reports that he does drink alcohol daily about a half a gallon of vodka, however has been trying to reduce the amount he drinks. He states he drank a little alcohol yesterday, but does not quantify how much. He also reports that he receives Roxicodone and morphine from pain management for chronic back pain. He denies IVDU. PFSH Past Medical History Hx Anticoagulant Therapy: No Arthritis: Yes (RA) Asthma: No Blood Disorders: Yes (HEPATITIS B AND C NO TREATMENT) Anxiety: Yes Depression: Yes Heart Rhythm Problems: No Cancer: No Cardiovascular Problems: Yes (HTN) High Cholesterol: No Chemotherapy: No Chest Pain: Yes (PALPITATIONS) Congestive Heart Failure: No Cirrhosis: Yes COPD: Yes Cerebrovascular Accident: No Diabetes: No Diminished Hearing: No Endocrine: No Gastrointestinal Disorders: Yes (PANCREATITIS) GERD: Yes Genitourinary: No Headaches: Yes Hepatitis: Yes (B & C) Hiatal Hernia: No Heparin Induced Thrombocytopen: No Herniated Disk: Yes Hypertension: Yes Immune Disorder: No Implanted Vascular Access Dvce: Yes Insomnia: Yes Kidney Stones: No Musculoskeletal: Yes (CHRONIC BACK PAIN) Neurologic: Yes Psychiatric: Yes Reproductive: No Respiratory: Yes (COPD) Integumentary: Yes (HX IV DRUG USE) Immunizations Current: Yes Migraines: Yes Pancreatitis: Yes Pneumonia: Yes Radiation Therapy: No Renal Failure: No Seizures: No Sickle Cell Disease: No Sleep Apnea: No Thyroid Disease: No Ulcer: No PNEUMOCCOCAL Vaccine (Year): 2 Past Surgical History Abdominal Surgery: Yes (LIVER BIOPSY) AICD: No Arteriovenous Shunt: No Body Medical Devices: STEEL PLATE IN RIGHT ANKLE Cardiac Surgery: No Ear Surgery: No Endocrine Surgery: Yes (LIVER BIOPSY) Eye Surgery: No Genitourinary Surgery: No Gynecologic Surgery: No Hysterectomy: No Insulin Pump: No Joint Replacement: No Neurologic Surgery: No Oral Surgery: No Pacemaker: No Thoracic Surgery: Yes (CHEST TUBE- R/O TB 2009) Tonsillectomy: Yes Other Surgery: Yes (RIGHT ANKLE PLATE/SCREWS) Social History Alcohol Use: Yes Tobacco Use: Yes (09/23) Substance Use: Yes (QUIT 2006) Allergies-Medications (Allergen,Severity, Reaction): Coded Allergies: Prednisone (Verified Allergy, Severe, Rash, 11/18/16) *MDRO Multi-Drug Resistant Organism (Verified Adverse Reaction, Unknown, Cleared, 11/18/16) MRSA arm wound 2008 MRSA PCR Screen negative 01/06/15 and 05/30/15. Cleared by Infection Control. Reported Meds & Prescriptions Reported Meds & Active Scripts Active Proair Hfa 8.5 GM Inh (Albuterol Sulfate) 90 Mcg/Act Aer 1 Puff INH Q4H PRN 108 mcg/actuation Pantoprazole (Pantoprazole Sodium) 40 Mg Tab 40 Mg PO BID Reported Morphine ER (Morphine Sulfate) 15 Mg Tab 15 Mg PO BID Amlodipine (Amlodipine Besylate) 10 Mg Tab 10 Mg PO DAILY Oxycodone (Oxycodone HCl) 15 Mg Tab 15 Mg PO Q8H PRN Sucralfate 1 Gm Tab 1 Gm PO QID on empty stomach Review of Systems Except as stated in HPI: all other systems reviewed are Neg Physical Exam Narrative GENERAL: Well-developed, well-nourished, comfortable, no acute distress. SKIN: Warm and dry. No rash. HEAD: Atraumatic. Normocephalic. EYES: Pupils equal and round. No scleral icterus. No injection or drainage. ENT: No nasal bleeding or discharge. Mucous membranes pink and moist. NECK: Trachea midline. No JVD. CARDIOVASCULAR: Tachycardic, rate 103, regular. RESPIRATORY: No accessory muscle use. Clear to auscultation. Breath sounds equal bilaterally. GASTROINTESTINAL: Abdomen soft, non-tender, nondistended. MUSCULOSKELETAL: No obvious deformities. No clubbing. No cyanosis. No edema. NEUROLOGICAL: Awake and alert. No obvious cranial nerve deficits. Motor grossly within normal limits. Normal speech. PSYCHIATRIC: Appropriate mood and affect; insight and judgment normal. Data Data Last Documented VS Vital Signs Date Time Temp Pulse Resp B/P Pulse Ox O2 Delivery O2 Flow Rate FiO2 11/18/16 06:23 97.8 102 18 154/84 100 Orders Electrocardiogram (11/18/16 06:30) Ckmb (Isoenzyme) Profile (11/18/16 06:30) Complete Blood Count With Diff (11/18/16 06:30) Magnesium (Mg) (11/18/16 06:30) Prothrombin Time / Inr (Pt) (11/18/16 06:30) Act Partial Throm Time (Ptt) (11/18/16 06:30) Troponin I (11/18/16 06:30) Chest, Single Ap (11/18/16 06:30) Ecg Monitoring (11/18/16 06:30) Bilateral Bp Monitoring (11/18/16 06:30) Iv Access Insert/Monitor (11/18/16 06:30) Oximetry (11/18/16 06:30) Aspirin Chew (Aspirin Chew) (11/18/16 06:30) Sodium Chloride 0.9% Flush (Ns Flush) (11/18/16 06:30) Nitroglycerin Sl (Nitrostat Sl) (11/18/16 06:30) Lipase (11/18/16 06:30) Comprehensive Metabolic Panel (11/18/16 06:30) Alcohol (Ethanol) (11/18/16 06:30) Drug Screen, Random Urine (11/18/16 06:30) Sodium Chlor 0.9% 1000 Ml Inj (Ns 1000 M (11/18/16 06:30) Ondansetron Inj (Zofran Inj) (11/18/16 07:00) MDM Medical Decision Making Medical Screen Exam Complete: Yes Emergency Medical Condition: Yes Medical Record Reviewed: Yes Interpretation(s) EKG: Sinus, rate 103, normal axis, normal intervals, no acute ischemic normality. Differential Diagnosis ACS, pneumothorax, pericarditis, PE, pneumonia, pancreatitis, alcohol withdrawal Narrative Course At approximately 7:00 AM at the end of my shift the patient was signed out to Dr. Henderson who will follow up with labs and will disposition the patient. Procedures Procedure Narrative Ultrasound-guided peripheral IV: Because of difficult IV access I was asked by my nurse to place an ultrasound- guided IV. Using the linear ultrasound probe, a 20-gauge IV catheter was placed in the right arm. Site prepped with ChloraPrep prior to insertion. Tolerated well. No complications. Gonzalez Chi MD Nov 18, 2016 06:34
[2016-11-18] MEDS ORDERED: MORP1TAB24 PO (06:37)
[2016-11-18] MEDS: NITROGLYCERIN 0.4 MG SL 25 TABS/BTL SL SCH ×3 (06:40→07:25)
[2016-11-18] MEDS ORDERED: ONDANSETRON HCL 4 MG/2 ML VIAL IV PUSH ONE (07:00)
[2016-11-18 07:09] LABS: AUTOMATED NEUTROPHIL # 1.6 TH/MM3 (1.8-7.7); BASOPHIL # 0.1 TH/MM3 (0-0.2); BASOPHIL % 1.3 % (0.0-2.0); EOSINOPHIL # 0.1 TH/MM3 (0-0.4); HEMATOCRIT 35.9 % (39.0-51.0); LYMPH % 48.4 % (9.0-44.0); MEAN CELL VOLUME 75.4 FL (80.0-100.0); MEAN CORPUSCULAR HEMOGLOBIN 23.8 PG (27.0-34.0); MEAN CORPUSCULAR HGB CONC 31.6 % (32.0-36.0); MONO % 8.5 % (0.0-8.0); NEUT % 38.8 % (16.0-70.0); PLATELET COUNT 225 TH/MM3 (150-450); RED BLOOD COUNT 4.76 MIL/MM3 (4.50-5.90); RED CELL DISTRIBUTION WIDTH 18.7 % (11.6-17.2); WHITE BLOOD COUNT 4.2 TH/MM3 (4.0-11.0)
[2016-11-18 07:11] LABS: HEMO FLAGS AUTO DIFF
[2016-11-18 07:15] VITALS: O2SAT 98
[2016-11-18] MEDS ORDERED: LORazepam 2 MG/ML VIAL IV PUSH ONE ×3 (07:15→07:45)
[2016-11-18 07:17] LABS: CHLORIDE 101 MEQ/L (98-107); POTASSIUM 3.7 MEQ/L (3.5-5.1); SODIUM (NA) 138 MEQ/L (136-145)
[2016-11-18 07:21] LABS: ANION GAP 9 MEQ/L (5-15); BICARBONATE 28.5 MEQ/L (21.0-32.0); MAGNESIUM 1.7 MG/DL (1.5-2.5)
[2016-11-18 07:22] LABS: BLOOD UREA NITROGEN 8 MG/DL (7-18)
[2016-11-18 07:23] LABS: APTT (PATIENT) 26.5 SEC (24.3-30.1); INTERNATIONAL NORMALIZED RATIO 0.9 RATIO; PROTHROMBIN TIME - PATIENT 10.4 SEC (9.8-11.6)
[2016-11-18 07:24] VITALS: BP 143/83; PULSE 106; RESP 18; O2SAT 100
[2016-11-18 07:24] LABS: ALT (GPT) 50 U/L (12-78); AST (GOT) 149 U/L (15-37); GLOMERULAR FILTRATION RATE 117 ML/MIN (>89)
[2016-11-18 07:26] LABS: TOTAL BILIRUBIN ADULT 0.6 MG/DL (0.2-1.0)
[2016-11-18 07:27] LABS: ALKALINE PHOSPHATASE 88 U/L (45-117); CREATINE KINASE 171 U/L (39-308)
[2016-11-18 07:28] LABS: OVALOCYTES 1+ (NORMAL); PLATELET ESTIMATE SMEAR NORMAL (NORMAL); PLATELET MORPHOLOGY NORMAL (NORMAL); SCAN/DIFF AUTO DIFF CONFIRMED
[2016-11-18 07:39] LABS: CKMB 1.1 NG/ML (0.5-3.6)
[2016-11-18 07:51] VITALS: BP 125/86; PULSE 98; RESP 18; O2SAT 100
--- NOTE | 2016-11-18 08:14 | RADHPO ---
EXAM DATE/TIME: 11/18/2016 07:12 [facility] COMPARISON: CHEST SINGLE AP, September 30, 2016, 23:02. INDICATIONS: Chest pain. MEDICAL HISTORY: Chronic obstructive pulmonary disease. SURGICAL HISTORY: None. ENCOUNTER: Initial ACUITY: 2 days PAIN SCORE: 8/10 LOCATION: Bilateral chest FINDINGS: Extensive calcified granulomas are again noted predominantly within the upper lobes bilaterally. The heart and mediastinal structures are normal. The pulmonary vascular pattern is normal. The lungs a re otherwise clear. CONCLUSION: 1. Stable extensive calcified granulomas within the upper lobes of both lungs. 2. No acute focal pulmonary infiltrate. Faizan Milian MD on November 18, 2016 at 7:26 Board Certified Radiologist. This report was verified electronically.
[2016-11-18] MEDS ORDERED: CHLO25CA2 PO (08:41)
--- NOTE | 2016-11-18 08:42 | PD ---
Data Data Last Documented VS Vital Signs Date Time Temp Pulse Resp B/P Pulse Ox O2 Delivery O2 Flow Rate FiO2 11/18/16 07:51 98 18 125/86 100 Room Air 11/18/16 06:23 97.8 Orders Electrocardiogram (11/18/16 06:30) Ckmb (Isoenzyme) Profile (11/18/16 06:30) Complete Blood Count With Diff (11/18/16 06:30) Magnesium (Mg) (11/18/16 06:30) Prothrombin Time / Inr (Pt) (11/18/16 06:30) Act Partial Throm Time (Ptt) (11/18/16 06:30) Troponin I (11/18/16 06:30) Chest, Single Ap (11/18/16 06:30) Ecg Monitoring (11/18/16 06:30) Bilateral Bp Monitoring (11/18/16 06:30) Iv Access Insert/Monitor (11/18/16 06:30) Oximetry (11/18/16 06:30) Aspirin Chew (Aspirin Chew) (11/18/16 06:30) Sodium Chloride 0.9% Flush (Ns Flush) (11/18/16 06:30) Nitroglycerin Sl (Nitrostat Sl) (11/18/16 06:30) Lipase (11/18/16 06:30) Comprehensive Metabolic Panel (11/18/16 06:30) Alcohol (Ethanol) (11/18/16 06:30) Drug Screen, Random Urine (11/18/16 06:30) Sodium Chlor 0.9% 1000 Ml Inj (Ns 1000 M (11/18/16 06:30) Ondansetron Inj (Zofran Inj) (11/18/16 07:00) Lorazepam Inj (Ativan Inj) (11/18/16 07:15) CKMB (11/18/16 06:58) CKMB% (11/18/16 06:58) Lorazepam Inj (Ativan Inj) (11/18/16 07:45) Lorazepam Inj (Ativan Inj) (11/18/16 07:45) Labs Laboratory Tests Test 11/18/16 06:58 White Blood Count 4.2 TH/MM3 Red Blood Count 4.76 MIL/MM3 Hemoglobin 11.3 GM/DL Hematocrit 35.9 % Mean Corpuscular Volume 75.4 FL Mean Corpuscular Hemoglobin 23.8 PG Mean Corpuscular Hemoglobin 31.6 % Concent Red Cell Distribution Width 18.7 % Platelet Count 225 TH/MM3 Mean Platelet Volume 6.7 FL Neutrophils (%) (Auto) 38.8 % Lymphocytes (%) (Auto) 48.4 % Monocytes (%) (Auto) 8.5 % Eosinophils (%) (Auto) 3.0 % Basophils (%) (Auto) 1.3 % Neutrophils # (Auto) 1.6 TH/MM3 Lymphocytes # (Auto) 2.0 TH/MM3 Monocytes # (Auto) 0.4 TH/MM3 Eosinophils # (Auto) 0.1 TH/MM3 Basophils # (Auto) 0.1 TH/MM3 CBC Comment AUTO DIFF Differential Comment AUTO DIFF CONFIRMED Platelet Estimate NORMAL Platelet Morphology Comment NORMAL Ovalocytes 1+ Prothrombin Time 10.4 SEC Prothromb Time International 0.9 RATIO Ratio Activated Partial 26.5 SEC Thromboplast Time Sodium Level 138 MEQ/L Potassium Level 3.7 MEQ/L Chloride Level 101 MEQ/L Carbon Dioxide Level 28.5 MEQ/L Anion Gap 9 MEQ/L Blood Urea Nitrogen 8 MG/DL Creatinine 0.71 MG/DL Estimat Glomerular Filtration 117 ML/MIN Rate Random Glucose 126 MG/DL Calcium Level 8.4 MG/DL Magnesium Level 1.7 MG/DL Total Bilirubin 0.6 MG/DL Aspartate Amino Transf 149 U/L (AST/SGOT) Alanine Aminotransferase 50 U/L (ALT/SGPT) Alkaline Phosphatase 88 U/L Total Creatine Kinase 171 U/L Creatine Kinase MB 1.1 NG/ML Troponin I LESS THAN 0.02 NG/ML Total Protein 8.0 GM/DL Albumin 3.9 GM/DL Lipase 306 U/L Ethyl Alcohol Level 6 MG/DL [facility] Supervised Visit with APOLLO: No Narrative Course This is a 51-year-old male with a history of alcohol abuse who presents to the emergency department reporting chest discomfort. He is presented to the emergency department multiple times in the past with chest discomfort. He had a stress test which was reassuring back in February of last year. He says that he is shaky and is in alcohol withdrawal. I asked him why he will stop drinking alcohol and he says he wants to quit. He said he went to [facility] last night but they turned him away because his blood pressure was too high and they told him he needed to come to the hospital. Patient received 4 mg of IV Ativan and his withdrawal symptoms improved. He'll be given Librium and can follow-up as an outpatient with detox. I don't think he has an emergent etiology of his chest discomfort and I think most of his presentation is related to acute alcohol withdrawal. Diagnosis Primary Impression: Alcohol withdrawal Qualified Code: F10.230 - Alcohol withdrawal, uncomplicated Patient Instructions: General Instructions Additional Instruction: Follow up with Candace Carter in regards to psychiatric or substance related issues at: [address] [place], [place] [id number] Med/Other Pt SpecificInfo: Prescription(s) given Scripts Chlordiazepoxide 25 Mg Cap25 Mg PO QID PRN (Anxiety) #10 CAP Ref 0 Prov:Adenike Henderson MD 11/18/16 Disposition: 01 DISCHARGE HOME Condition: Stable Adenike Henderson MD Nov 18, 2016 08:41
[2016-11-18] MEDS ORDERED: chlordiazePOXIDE 25 MG CAP PO ONE (08:45)
[2016-11-18 09:06] VITALS: BP 132/76; PULSE 92; RESP 18; O2SAT 98
[2016-11-18 09:18] LABS: AMPHETAMINE, URINE NEG (NEG); BARBITURATES, URINE NEG (NEG)
[2016-11-18 09:19] LABS: COCAINE, URINE NEG (NEG)
--- NOTE | 2016-11-18 13:38 | EKG ---
Date Performed: 11/18/2016 Time Performed: 06:22:36 PTAGE: 51 years EKG: Sinus tachycardia. Normal ECG except for rate Compared to prior tracing no significant cuenca ge PREVIOUS TRACING : 10/01/2016 11.01 DOCTOR: Gerson Hernández Interpretating Date/Time 11/18/2016 13:37:07
== END 2016-11-18 09:08 | disposition home or self-care (01) ==
LOC: PHED 06:15
DX: F10.230 Alcohol dependence with withdrawal, uncomplicated (principal); R00.0 Tachycardia, unspecified; Y90.0 Blood alcohol level of less than 20 mg/100 ml
CPT/HCPCS: 71010; 80053; 80307; 80320; 82550; 82552; 83690; 83735; 84484; 85025; 85610; 85730; 93005; 96374; 96375; 96376; 99285; J2060; J2405; J7030

== ENCOUNTER 2016-12-18 03:12 | Inpatient (IN) | payer OTHER ==
[2016-12-18] VITALS (39 sets, daily range): BP systolic 126–191; BP diastolic 83–122; PULSE 78–115; RESP 16–43; TEMP 97.5–98.2; O2SAT 92–99
[~2016-12-18] VITALS: Ht 198.1 cm; Wt 95.6 kg
[~2016-12-18 03:12] MED LIST changes: +CHLO25CA2 PO; +MORP1TAB24 PO; -ZOFR4TAB3 SL
[2016-12-18] MEDS ORDERED: SODIUM CHLOR 0.9% 1000 ML INJ 1,000 ML IV SCH ×2 (04:47→07:00)
[2016-12-18] MEDS ORDERED: SODIUM CHLORIDE 0.9% FLUSH 10 ML FLUSH IV FLUSH PRN ×2 (05:00→06:45)
[2016-12-18 05:28] LABS: AUTOMATED NEUTROPHIL # 7.1 TH/MM3 (1.8-7.7); BASOPHIL % 0.4 % (0.0-2.0); EOSINOPHIL % 0.4 % (0.0-4.0); HEMATOCRIT 36.7 % (39.0-51.0); LYMPH % 8.6 % (9.0-44.0); LYMPHOCYTE # 0.7 TH/MM3 (1.0-4.8); MEAN CELL VOLUME 77.1 FL (80.0-100.0); MEAN CORPUSCULAR HEMOGLOBIN 24.6 PG (27.0-34.0); MONO % 8.8 % (0.0-8.0); NEUT % 81.8 % (16.0-70.0); PLATELET COUNT 187 TH/MM3 (150-450); RED BLOOD COUNT 4.76 MIL/MM3 (4.50-5.90); RED CELL DISTRIBUTION WIDTH 18.8 % (11.6-17.2); WHITE BLOOD COUNT 8.6 TH/MM3 (4.0-11.0)
[2016-12-18] MEDS ORDERED: ONDANSETRON HCL 4 MG/2 ML VIAL IV ONE (05:30)
[2016-12-18 05:36] LABS: CHLORIDE 100 MEQ/L (98-107); POTASSIUM 3.2 MEQ/L (3.5-5.1); SODIUM (NA) 138 MEQ/L (136-145)
[2016-12-18 05:40] LABS: ANION GAP 13 MEQ/L (5-15); BICARBONATE 25.2 MEQ/L (21.0-32.0); BLOOD UREA NITROGEN 10 MG/DL (7-18)
--- NOTE | 2016-12-18 05:41 | PD ---
HPI Chief Complaint: Abdominal Pain Time Seen by Provider: 04:46 Travel History International Travel<30 days: No Contact w/Intl Traveler<30days: No Traveled to known affect area: No History of Present Illness HPI The patient is a 51-year-old alcoholic, fairly well known to the emergency department here who states his last drink of alcohol was yesterday morning when he drank 2 beers. After he drank these beers he had nausea vomiting and midline epigastric pain. He denies any blood in the vomitus or stool. He denies any fever. The patient comes in stating he needs something for pain and something to calm him down like Ativan. PFSH Past Medical History Hx Anticoagulant Therapy: No Arthritis: Yes (RA) Asthma: No Blood Disorders: Yes (HEPATITIS B AND C NO TREATMENT) Anxiety: Yes Depression: Yes Heart Rhythm Problems: No Cancer: No Cardiovascular Problems: Yes High Cholesterol: No Chemotherapy: No Chest Pain: Yes (PALPITATIONS) Congestive Heart Failure: No Cirrhosis: Yes COPD: Yes Cerebrovascular Accident: No Diabetes: No Diminished Hearing: No Endocrine: No Gastrointestinal Disorders: Yes (PANCREATITIS) GERD: Yes Genitourinary: No Headaches: Yes Hepatitis: Yes (B & C) Hiatal Hernia: No Heparin Induced Thrombocytopen: No Herniated Disk: Yes Hypertension: Yes Immune Disorder: No Implanted Vascular Access Dvce: Yes Insomnia: Yes Kidney Stones: No Musculoskeletal: Yes (CHRONIC BACK PAIN) Neurologic: Yes Psychiatric: Yes Reproductive: No Respiratory: Yes Integumentary: Yes (HX IV DRUG USE) Immunizations Current: Yes Migraines: Yes Pancreatitis: Yes Pneumonia: Yes Radiation Therapy: No Renal Failure: No Seizures: No Sickle Cell Disease: No Sleep Apnea: No Thyroid Disease: No Ulcer: Yes Tetanus Vaccination: < 5 Years Influenza Vaccination: Yes PNEUMOCCOCAL Vaccine (Year): 2 Past Surgical History Abdominal Surgery: Yes (LIVER BIOPSY) AICD: No Arteriovenous Shunt: No Body Medical Devices: STEEL PLATE IN RIGHT ANKLE Cardiac Surgery: No Ear Surgery: No Endocrine Surgery: Yes (LIVER BIOPSY) Eye Surgery: No Genitourinary Surgery: No Gynecologic Surgery: No Hysterectomy: No Insulin Pump: No Joint Replacement: No Neurologic Surgery: No Oral Surgery: No Pacemaker: No Thoracic Surgery: Yes (CHEST TUBE- R/O TB 2009) Tonsillectomy: Yes Other Surgery: Yes (RIGHT ANKLE PLATE/SCREWS) Social History Alcohol Use: Yes ("TRYING TO QUIT, USUALLY 1/2 G[place] OF VODKA DAILY" STATED ) Tobacco Use: Yes (1/2 PPD) Substance Use: Yes (QUIT 2006) Allergies-Medications (Allergen,Severity, Reaction): Coded Allergies: Prednisone (Verified Allergy, Severe, Rash, 12/18/16) *MDRO Multi-Drug Resistant Organism (Verified Adverse Reaction, Unknown, Cleared, 12/18/16) MRSA arm wound 2008 MRSA PCR Screen negative 01/06/15 and 05/30/15. Cleared by Infection Control. Reported Meds & Prescriptions Reported Meds & Active Scripts Active Proair Hfa 8.5 GM Inh (Albuterol Sulfate) 90 Mcg/Act Aer 1 Puff INH Q4H PRN 108 mcg/actuation Pantoprazole (Pantoprazole Sodium) 40 Mg Tab 40 Mg PO BID Reported Amlodipine (Amlodipine Besylate) 10 Mg Tab 10 Mg PO DAILY Sucralfate 1 Gm Tab 1 Gm PO QID on empty stomach Review of Systems Except as stated in HPI: all other systems reviewed are Neg Physical Exam Narrative GENERAL: The patient is alert, oriented 3, slightly dehydrated-appearing in slight apparent distress with his epigastric discomfort. His vital signs show blood pressure 170/122 but otherwise normal. SKIN: Focused skin assessment warm/dry. HEAD: Atraumatic. Normocephalic. EYES: Pupils equal and round. No scleral icterus. No injection or drainage. ENT: No nasal bleeding or discharge. Mucous membranes pink and moist. NECK: Trachea midline. No JVD. CARDIOVASCULAR: Regular rate and rhythm. No murmur appreciated. RESPIRATORY: No accessory muscle use. Clear to auscultation. Breath sounds equal bilaterally. GASTROINTESTINAL: Abdomen soft, with tenderness to direct palpation in the midline epigastrium, nondistended. Hepatic and splenic margins not palpable. No guarding or rebound is present. MUSCULOSKELETAL: No obvious deformities. No clubbing. No cyanosis. No edema. NEUROLOGICAL: Awake and alert. No obvious cranial nerve deficits. Motor grossly within normal limits. Normal speech. PSYCHIATRIC: Appropriate mood and affect; insight and judgment normal. Data Data Last Documented VS Vital Signs Date Time Temp Pulse Resp B/P Pulse Ox O2 Delivery O2 Flow Rate FiO2 12/18/16 06:06 104 18 157/105 96 Room Air 12/18/16 04:56 97.5 Orders Complete Blood Count With Diff (12/18/16 04:47) Comprehensive Metabolic Panel (12/18/16 04:47) Lipase (12/18/16 04:47) Urinalysis - C+S If Indicated (12/18/16 04:47) Iv Access Insert/Monitor (12/18/16 04:47) Ecg Monitoring (12/18/16 04:47) Oximetry (12/18/16 04:47) Sodium Chlor 0.9% 1000 Ml Inj (Ns 1000 M (12/18/16 04:47) Sodium Chloride 0.9% Flush (Ns Flush) (12/18/16 05:00) Alcohol (Ethanol) (12/18/16 04:47) Ondansetron Inj (Zofran Inj) (12/18/16 05:30) Hydralazine Inj (Apresoline Inj) (12/18/16 05:45) Ondansetron Inj (Zofran Inj) (12/18/16 06:15) Pantoprazole Inj (Protonix Inj) (12/18/16 06:15) Famotidine Inj (Pepcid Inj) (12/18/16 06:15) Al-Mag Hy-Si 40-40-4 Mg/Ml Liq (Mag-Al P (12/18/16 06:15) Lidocaine 2% Viscous (Xylocaine 2% Visco (12/18/16 06:15) Ketorolac Inj (Toradol Inj) (12/18/16 06:15) Metoclopramide Inj (Reglan Inj) (12/18/16 06:45) Hydromorphone Pf Inj (Dilaudid Pf Inj) (12/18/16 06:45) Admit Order (Ed Use Only) (12/18/16 06:39) Labs Laboratory Tests Test 12/18/16 05:15 White Blood Count 8.6 TH/MM3 Red Blood Count 4.76 MIL/MM3 Hemoglobin 11.7 GM/DL Hematocrit 36.7 % Mean Corpuscular Volume 77.1 FL Mean Corpuscular Hemoglobin 24.6 PG Mean Corpuscular Hemoglobin 32.0 % Concent Red Cell Distribution Width 18.8 % Platelet Count 187 TH/MM3 Mean Platelet Volume 6.6 FL Neutrophils (%) (Auto) 81.8 % Lymphocytes (%) (Auto) 8.6 % Monocytes (%) (Auto) 8.8 % Eosinophils (%) (Auto) 0.4 % Basophils (%) (Auto) 0.4 % Neutrophils # (Auto) 7.1 TH/MM3 Lymphocytes # (Auto) 0.7 TH/MM3 Monocytes # (Auto) 0.8 TH/MM3 Eosinophils # (Auto) 0.0 TH/MM3 Basophils # (Auto) 0.0 TH/MM3 CBC Comment AUTO DIFF Differential Comment AUTO DIFF CONFIRMED Platelet Estimate NORMAL Platelet Morphology Comment NORMAL Sodium Level 138 MEQ/L Potassium Level 3.2 MEQ/L Chloride Level 100 MEQ/L Carbon Dioxide Level 25.2 MEQ/L Anion Gap 13 MEQ/L Blood Urea Nitrogen 10 MG/DL Creatinine 0.61 MG/DL Estimat Glomerular Filtration 139 ML/MIN Rate Random Glucose 137 MG/DL Calcium Level 8.2 MG/DL Total Bilirubin 1.1 MG/DL Aspartate Amino Transf 292 U/L (AST/SGOT) Alanine Aminotransferase 75 U/L (ALT/SGPT) Alkaline Phosphatase 101 U/L Total Protein 7.9 GM/DL Albumin 3.9 GM/DL Lipase 9757 U/L Ethyl Alcohol Level 131 MG/DL [facility] Medical Decision Making Medical Screen Exam Complete: Yes Emergency Medical Condition: Yes Medical Record Reviewed: Yes Interpretation(s) The CBC shows a hemoglobin 11.7 and hematocrit of 36.7 but is otherwise unremarkable. The MCV is 77.1. The alcohol level is 131. The complete metabolic profile shows a potassium of 3.2, glucose of 137, AST of 292 but is otherwise normal. The lipase is 9757 Differential Diagnosis Alcohol withdrawal, alcohol gastritis, malingering to obtain Ativan/pain medications, dehydration, electrolyte disorder Narrative Course The patient stated he did not have a drink in 2 days when he came in. This is obviously not truthful because the patient does have an elevated alcohol level. He apparently drank is much as he could until his abdomen started hurting him so bad and he started vomiting that he could not drink anymore. He appears to have significant pancreatitis. It is now 0634 and the patient still complains of nausea and pain. Physician Communication Physician Communication I discussed the patient with Dr. Silva, the patient will be admitted to him here at [place]. Diagnosis Primary Impression: Acute pancreatitis Additional Impressions: Chronic alcohol abuse Dehydration, moderate Hypokalemia Admitting Information Admitting Physician Requests: Admit Ethan Rey MD Dec 18, 2016 05:41
[2016-12-18 05:43] LABS: ALT (GPT) 75 U/L (12-78); AST (GOT) 292 U/L (15-37); GLOMERULAR FILTRATION RATE 139 ML/MIN (>89); HEMO FLAGS AUTO DIFF
[2016-12-18 05:44] LABS: TOTAL BILIRUBIN ADULT 1.1 MG/DL (0.2-1.0)
[2016-12-18] MEDS ORDERED: hydrALAZINE HCL 20 MG/ML VIAL IV PUSH ONE (05:45)
[2016-12-18 05:46] LABS: ALKALINE PHOSPHATASE 101 U/L (45-117)
[2016-12-18 06:15] LABS: PLATELET ESTIMATE SMEAR NORMAL (NORMAL); PLATELET MORPHOLOGY NORMAL (NORMAL); SCAN/DIFF AUTO DIFF CONFIRMED
[2016-12-18] MEDS ORDERED: PANTOPRAZOLE SODIUM 40 MG VIAL IVP ONE (06:15)
[2016-12-18] MEDS ORDERED: KETOROLAC TROMETHAMINE 60 MG/2 ML (IM) VIAL IVP ONE (06:15)
[2016-12-18] MEDS ORDERED: FAMOTIDINE 20 MG/2 ML VIAL IV PUSH ONE (06:15)
[2016-12-18] MEDS ORDERED: LIDOCAINE VISCOUS 2% SOLN 15 ML UDC PO ONE (06:15)
[2016-12-18] MEDS ORDERED: ONDANSETRON HCL 4 MG/2 ML VIAL IVP ONE (06:15)
[2016-12-18] MEDS ORDERED: ALUMINUM/MAGNESIUM/SIMETH 30 ML CUP PO ONE (06:15)
[2016-12-18] MEDS ORDERED: PROCHLORPERAZINE 25 MG SUPP PR PRN (06:45)
[2016-12-18] MEDS ORDERED: NALOXONE HCL 0.4 MG/ML AMP IV PRN (06:45)
[2016-12-18] MEDS ORDERED: METOCLOPRAMIDE HCL 10 MG/2 ML VIAL IVS ONE (06:45)
[2016-12-18] MEDS ORDERED: HYDROmorphone HCL PF 1 MG/ML VIAL IVP ONE (06:45)
[2016-12-18 06:51] LABS: BLOOD, URINE NEG (NEG); GLUCOSE,URINE NEG (NEG); KETONE, URINE TRACE mg/dL (NEG); NITRITE,URINE NEG (NEG); PH, URINE 5.5 (5.0-8.5)
[2016-12-18 06:54] LABS: METHOD OF COLLECTION CLEAN CATCH; URINE COLOR YELLOW (YELLW/STRAW)
[2016-12-18 06:59] LABS: COMMENT (UR) CULT NOT INDICATED; CULTURE IF INDICATED CULT NOT INDICATED; SQUAMOUS EPITHELIAL CELL URINE 0-5 /hpf (0-5)
[2016-12-18] MEDS ORDERED: PANTOPRAZOLE SODIUM 40 MG VIAL IV PUSH ONE (07:00)
[2016-12-18] MEDS ORDERED: LORazepam 2 MG/ML VIAL IV PUSH PRN ×2 (07:00)
[2016-12-18] MEDS ORDERED: MORPHINE SULFATE 4 MG/ML INJ IV PUSH PRN (07:00)
[2016-12-18] MEDS ORDERED: LORazepam 1 MG TAB PO PRN (07:00)
[2016-12-18] MEDS ORDERED: ALBUTEROL SULFATE 90 MCG/ACT HFA 8 GM INHALER INH PRN (07:00)
[2016-12-18] MEDS ORDERED: LORazepam 2 MG TAB PO PRN (07:00)
[2016-12-18] MEDS ORDERED: FLUMAZENIL 0.5 MG/5 ML VIAL IV PUSH PRN (07:00)
[2016-12-18] MEDS: POTASSIUM CHLOR 10 MEQ PREMIX 100 ML IV SCH ×3 (08:04→10:49)
[2016-12-18] MEDS: LACTATED RINGER'S 1000 ML INJ 1,000 ML IV SCH ×4 (08:07→22:21)
[2016-12-18] MEDS: SODIUM CHLORIDE 0.9% FLUSH 10 ML FLUSH IV FLUSH SCH ×2 (08:20→21:00)
[2016-12-18] MEDS: LORazepam 2 MG/ML VIAL IV PUSH PRN ×4 (09:25→21:43)
[2016-12-18] MEDS: MORPHINE SULFATE 4 MG/ML INJ IV PUSH PRN ×4 (09:53→21:42)
[2016-12-18] MEDS: ENALAPRILAT 1.25 MG/ML VIAL IV PUSH PRN ×2 (11:45→18:11)
[2016-12-18] MEDS: ONDANSETRON HCL 4 MG/2 ML VIAL IVP PRN (13:05)
[2016-12-18] MEDS: DEXMEDETOMIDINE INJ 200 MCG in SODIUM CHLORIDE 0.9% INJ 48 ML IV SCH ×2 (13:51→22:20)
--- NOTE | 2016-12-18 14:10 | HHI.HP ---
[facility] Primary Care Physician Maribell Chang MD Admission Diagnosis acute pancreatitis Diagnoses: (1) Alcohol withdrawal Diagnosis: Principal (2) Acute on chronic pancreatitis Diagnosis: Principal (3) Intractable abdominal pain Diagnosis: Principal (4) Nausea & vomiting Diagnosis: Secondary (5) Dehydration, moderate Diagnosis: Secondary (6) Elevated liver enzymes Diagnosis: Secondary (7) Hepatitis C Diagnosis: Secondary (8) Tobacco abuse Diagnosis: Secondary (9) Chronic alcohol abuse Diagnosis: Secondary (10) Hepatitis B Diagnosis: Secondary Chief Complaint: Abdominal pain Travel History International Travel<30 Days: No Contact w/Intl Traveler <30 Da: No Traveled to Known Affected Are: No History of Present Illness Mr. Pink is a 51-year-old male with multiple previous admissions to the ED with alcohol withdrawal, known ETOH abuse, history of IV drug use, acute on chronic pancreatitis, and untreated hepatitis B and C. He presents to the ED with severe abdominal pain, with associated nausea and previous vomiting who is presently in severe alcohol withdrawal, shaking uncontrollably despite Ativan administration, and states nothing has relieved his 10/10 abdominal pain. Patient states his last drank was a couple of beers two days ago, although his present alcohol level is 131. He does admit that he normally drinks 1/2 gallon of vodka daily but mentions he is currently trying to quit drinking. Lipase level on presentation was 9757. He does admit to diarrhea and melena since yesterday. Patient was seen by GI in June, having an EGD showing presence of duodenal ulcers. No fevers, chills, cough, recent illness, or history of seizures. Denies further vomiting, chest pain or shortness of breath. Patient does take Roxicodone and morphine at home for chronic back pain. Review of Systems Constitutional: COMPLAINS OF: Diaphoretic episodes (alcohol tremors), DENIES: Fatigue, Fever, Weight gain, Weight loss, Chills, Dizziness, Change in appetite , Night Sweats Endocrine: DENIES: Heat/cold intolerance, Polydipsia, Polyuria, Polyphagia Eyes: DENIES: Blurred vision, Diplopia, Eye inflammation, Eye pain, Vision loss , Photosensitivity, Double Vision Ears, nose, mouth, throat: DENIES: Tinnitus, Hearing loss, Vertigo, Nasal discharge, Oral lesions, Throat pain, Hoarseness, Ear Pain, Running Nose, Epistaxis, Sinus Pain, Toothache, Odynophagia Respiratory: DENIES: Apneas, Cough, Snoring, Wheezing, Hemoptysis, Sputum production, Shortness of breath Cardiovascular: DENIES: Chest pain, Palpitations, Syncope, Dyspnea on Exertion , PND, Lower Extremity Edema, Orthopnea, Claudication Gastrointestinal: COMPLAINS OF: Abdominal pain, Black stools, Diarrhea, Nausea , DENIES: Bloody stools, Constipation, Vomiting, Difficulty Swallowing, Anorexia Genitourinary: DENIES: Sexual dysfunction, Urinary frequency, Urinary incontinence, Urgency, Hematuria, Dysuria, Nocturia, Penile Discharge, Testicular Pain, Testicular Swelling Musculoskeletal: DENIES: Joint pain, Muscle aches, Stiffness, Joint Swelling, Back pain, Neck pain Integumentary: DENIES: Abnormal pigmentation, Nail changes, Pruritus, Rash Hematologic/lymphatic: DENIES: Bruising, Lymphadenopathy Immunologic/allergic: DENIES: Eczema, Urticaria Neurologic: DENIES: Abnormal gait, Headache, Localized weakness, Paresthesias, Seizures, Speech Problems, Tremor, Poor Balance Psychiatric: COMPLAINS OF: Anxiety, DENIES: Confusion, Mood changes, Depression, Hallucinations, Agitation, Suicidal Ideation, Homicidal Ideation, Delusions Past Family Social History Past Medical History ETOH abuse Chronic Pancreatitis Hepatitis B and C Duodenal Ulcers Tobacco Abuse History of IV drug use Chronic back pain Rheumatoid Arthritis Steel plate status post right ankle fracture Chest tube for pneumothorax Past Surgical History Tonsillectomy EGD June 2016 Liver Biopsy Reported Medications Reported Meds & Active Scripts Active Proair Hfa 8.5 GM Inh (Albuterol Sulfate) 90 Mcg/Act Aer 1 Puff INH Q4H PRN 108 mcg/actuation Pantoprazole (Pantoprazole Sodium) 40 Mg Tab 40 Mg PO BID Reported Amlodipine (Amlodipine Besylate) 10 Mg Tab 10 Mg PO DAILY Sucralfate 1 Gm Tab 1 Gm PO QID on empty stomach Allergies: Coded Allergies: Prednisone (Verified Allergy, Severe, Rash, 12/18/16) *MDRO Multi-Drug Resistant Organism (Verified Adverse Reaction, Unknown, Cleared, 12/18/16) MRSA arm wound 2008 MRSA PCR Screen negative 01/06/15 and 05/30/15. Cleared by Infection Control. Family History Family history of diabetes and coronary artery disease. Mother has a history of anxiety. Social History Patient lives independently. Admits to drinking 1/2 gallon vodka daily. Does smoke 1/2 PPD. Denies any other illicit drug use at this time. Physical Exam Vital Signs Vital Signs Date Time Temp Pulse Resp B/P Pulse Ox O2 Delivery O2 Flow Rate FiO2 12/18/16 12:26 18 12/18/16 09:58 110 16 186/113 97 Room Air 12/18/16 09:58 18 12/18/16 09:13 16 12/18/16 08:51 104 17 183/110 98 Room Air 12/18/16 07:55 97.8 98 16 162/98 98 Room Air 12/18/16 06:06 104 18 157/105 96 Room Air 12/18/16 04:59 18 12/18/16 04:59 18 98 Room Air 12/18/16 04:56 97.5 98 18 182/110 98 12/18/16 03:21 97.5 78 18 170/122 98 Physical Exam GENERAL: Well developed patient, in severe distress, shaking uncontrollably with tremors, in apparent alcohol withdrawal despite Ativan administration. With severe abdominal pain unrelieved by pain medication. SKIN: No rashes, ecchymoses or lesions. Cool and dry. HEAD: Atraumatic. Normocephalic. No temporal or scalp tenderness. EYES: Pupils equal round and reactive. Extraocular motions intact. No scleral icterus. No injection or drainage. obvious lateral nystagmus noted ENT: Nose without bleeding, purulent drainage or septal hematoma. Throat without erythema, tonsillar hypertrophy or exudate. Uvula midline. Airway patent. NECK: Trachea midline. No JVD or lymphadenopathy. Supple, nontender, no meningeal signs. CARDIOVASCULAR: Regular rate and rhythm without murmurs, gallops, or rubs. RESPIRATORY: Clear to auscultation. Breath sounds equal bilaterally. No wheezes , rales, or rhonchi. GASTROINTESTINAL: Mildly distended, soft abdomen, very tender to touch. Guarding noted with patient hunched over in severe pain. MUSCULOSKELETAL: No cyanosis or edema of extremities. Clubbing noted of bilateral nail beds. No joint tenderness, effusion, or edema noted. No calf tenderness. Negative Homans sign bilaterally. NEUROLOGICAL: Awake and alert, in distress. Cranial nerves II through XII intact. Motor and sensory grossly within normal limits. Five out of 5 muscle strength in all muscle groups. Speech limited due to pain and discomfort. 3+ tremors of upper extremities as well as body tremors Laboratory Laboratory Tests Test 12/18/16 12/18/16 05:15 06:40 White Blood Count 8.6 Red Blood Count 4.76 Hemoglobin 11.7 Hematocrit 36.7 Mean Corpuscular Volume 77.1 Mean Corpuscular Hemoglobin 24.6 Mean Corpuscular Hemoglobin 32.0 Concent Red Cell Distribution Width 18.8 Platelet Count 187 Mean Platelet Volume 6.6 Neutrophils (%) (Auto) 81.8 Lymphocytes (%) (Auto) 8.6 Monocytes (%) (Auto) 8.8 Eosinophils (%) (Auto) 0.4 Basophils (%) (Auto) 0.4 Neutrophils # (Auto) 7.1 Lymphocytes # (Auto) 0.7 Monocytes # (Auto) 0.8 Eosinophils # (Auto) 0.0 Basophils # (Auto) 0.0 CBC Comment AUTO DIFF Differential Comment AUTO DIFF CONFIRMED Platelet Estimate NORMAL Platelet Morphology Comment NORMAL Sodium Level 138 Potassium Level 3.2 Chloride Level 100 Carbon Dioxide Level 25.2 Anion Gap 13 Blood Urea Nitrogen 10 Creatinine 0.61 Estimat Glomerular Filtration 139 Rate Random Glucose 137 Calcium Level 8.2 Magnesium Level 1.8 Total Bilirubin 1.1 Aspartate Amino Transf 292 (AST/SGOT) Alanine Aminotransferase 75 (ALT/SGPT) Alkaline Phosphatase 101 Total Protein 7.9 Albumin 3.9 Lipase 9757 Ethyl Alcohol Level 131 Urine Collection Type CLEAN CATCH Urine Color YELLOW Urine Turbidity CLEAR Urine pH 5.5 Urine Specific [place] 1.013 Urine Protein TRACE Urine Glucose (UA) NEG Urine Ketones TRACE Urine Occult Blood NEG Urine Nitrite NEG Urine Bilirubin NEG Urine Leukocyte Esterase NEG Urine Squamous Epithelial 0-5 Cells Microscopic Urinalysis Comment CULT NOT INDICATED Result Diagram: 12/18/1651412/18/16514 Assessment and Plan Assessment and Plan Acute pancreatitis with elevated lipase, intractable abdominal pain, associated nausea - Keep NPO, - Continue IVF - Control pain - Monitor lipase - Zofran and Compazine PRN Severe Alcoholic Withdrawal - Admit to ICU on Precedex drip - Seizure precautions - CIWA protocol - Close monitoring on telemetry - Encouraged to stop drinking Accelerated Hypertension - Likely secondary to pain and ETOH withdrawal - Resume Norvasc 10 mg daily - Vasotec/clonidine as needed Melena, with history of duodenal ulcer - Consult GI, appreciate input - Monitor H & H - Transfuse as needed - Protonix IV daily Dehydration - Continue IVF - Replace electrolytes as needed Liver cirrhosis, hepatitis B and C - Monitor liver enzymes Tobacco abuse - Encouraged to quit DVT Prophylaxis - Sequential compression devices Written by Frank Rey, acting as scribe for Dr. Oliver on 12/18/16 at 14:53. All or portions of this note were transcribed by scribe Frank Rey. I, Dr. Frank Oliver personally performed the history, physical exam, and medical decision making; and confirmed the accuracy of the information in the transcribed note. Authenticated by Dr. Frank Oliver on 12/18/16 at 15:49. Physician Certification 2 Midnight Certification Type: Admission for Inpatient Services Order for Inpatient Services The services are ordered in accordance with Medicare regulations or non- Medicare payer requirements, as applicable. In the case of services not specified as inpatient-only, they are appropriately provided as inpatient services in accordance with the 2-midnight benchmark. Estimated LOS (days): 2 days is the estimated time the patient will need to remain in the hospital, assuming treatment plan goals are met and no additional complications. Post-Hospital Plan: Home Problem Qualifiers (1) Hepatitis C: Frank Rey Dec 18, 2016 14:10 Frank Oliver MD Dec 18, 2016 15:49
[2016-12-18 14:15] LABS: HEMATOCRIT 36.7 % (39.0-51.0)
[2016-12-18 14:16] LABS: REVIEW FLAG FINAL
[2016-12-18] MEDS ORDERED: cloNIDine HCL 0.1 MG TAB PO PRN (15:00)
[2016-12-18] MEDS: SUCRALFATE 1 GM TAB PO SCH ×2 (18:00→21:39)
[2016-12-18] MEDS: PANTOPRAZOLE SODIUM 40 MG VIAL IV PUSH SCH (18:11)
[2016-12-18 19:55] LABS: HEMATOCRIT 37.8 % (39.0-51.0)
[2016-12-18 20:08] LABS: REVIEW FLAG FINAL
--- NOTE | 2016-12-18 22:09 | MB ---
cc: JAVIER GUEVARA DATE OF CONSULTATION: 12/18/2016 REASON FOR REFERRAL Pancreatitis and GI bleed. Thank you for the consultation. HISTORY OF PRESENT ILLNESS: The patient is a 51-year-old male who is known to have multiple medical problems including alcohol abuse, IV drug abuse, chronic pancreatitis with multiple exacerbations in the past. The patient also has Hepatitis B and C, which has not been treated. The patient came in complaining of severe abdominal pain, nausea and vomiting, and severe alcohol intoxication with withdrawal. He was shaking despite administration of Ativan. The patient was admitted to the ICU and he stated that his urine was dark because he was not eating well and only drinking beer. His alcohol level was 131 on admission. He drinks about a half gallon of vodka on a daily basis. He has high lipase of 9757. REVIEW OF SYSTEMS Very hard to obtain because the patient is impending DT. PAST MEDICAL HISTORY Significant for back pain, rheumatoid arthritis, tobacco abuse duodenal ulcer, Hepatitis B and C, pancreatitis, alcohol abuse, rheumatoid arthritis, ankle fracture, chest tube for pneumothorax. PAST SURGICAL HISTORY: Tonsillectomy. Liver biopsy. EGD in June. MEDICATIONS Reviewed in the chart. ALLERGIES PREDNISONE FAMILY HISTORY Significant for coronary artery disease, diabetes. SOCIAL HISTORY Positive for drug, alcohol and smoking. PHYSICAL EXAMINATION The patient is awake, arousable, not very well oriented, seems to be in DTs. Vital signs stable. HEENT: Pupils are round and reactive to light. The patient is jaundice. Neck: Supple. Chest: Clear. Cardiac: Regular rate and rhythm at this time with heart rate hovering between 100 to 110. Blood pressure is on the higher side 167/104. Pulse oximetry 94%. Abdomen: Soft, mild diffuse tenderness, moderate to severe in the mid epigastric area and right upper quadrant. Positive bowel sounds. Extremities: Trace edema, no clubbing or cyanosis. Neurologic: Impending DTs. LABORATORY DATA: White blood cell count 8.6, hemoglobin 11.7, platelet count 187, total bilirubin 1.1, AST 292, ALT 75, lipase 2757. Alcohol 131. ASSESSMENT/PLAN The patient is a 51-year-old male with acute pancreatitis secondary to alcohol, multiple episodes. Patient known to have this before. We will continue n.p.o. Will watch for DT. His hemoglobin is stable. The patient will need to stop alcohol immediately. He is already in the ICU. Will watch his H&H and will follow his lipase. Will keep him n.p.o. for the time being. MD IRENE Corea/TARAS /8:02 PM /10:01 PM
[2016-12-18] MEDS ORDERED: CHLORHEXIDINE GLUCONATE 2 % 1 PACK (2 CLOTHS)(extra cloths) TOPICAL PRN (23:30)
[2016-12-19] VITALS (23 sets, daily range): BP systolic 109–155; BP diastolic 68–99; PULSE 98–122; RESP 18–37; TEMP 97.6–98.7; O2SAT 93–96
[2016-12-19] MEDS: MORPHINE SULFATE 4 MG/ML INJ IV PUSH PRN ×2 (01:32→05:31)
[2016-12-19] MEDS: DEXMEDETOMIDINE INJ 200 MCG in SODIUM CHLORIDE 0.9% INJ 48 ML IV SCH (01:32)
[2016-12-19 02:39] LABS: HEMATOCRIT 36.8 % (39.0-51.0)
[2016-12-19 02:40] LABS: REVIEW FLAG FINAL
[2016-12-19] MEDS ORDERED: CHLORHEXIDINE GLUCONATE 2 % 1 PACK (2 CLOTHS)(taper/protocol) TOPICAL SCH (04:00)
[2016-12-19] MEDS: PANTOPRAZOLE SODIUM 40 MG VIAL IV PUSH SCH (05:30)
[2016-12-19] MEDS: LORazepam 2 MG/ML VIAL IV PUSH PRN (05:30)
[2016-12-19] MEDS: LACTATED RINGER'S 1000 ML INJ 1,000 ML IV SCH (05:33)
[2016-12-19 05:35] LABS: CHLORIDE 93 MEQ/L (98-107); POTASSIUM 3.5 MEQ/L (3.5-5.1); SODIUM (NA) 132 MEQ/L (136-145)
[2016-12-19 05:45] LABS: ALKALINE PHOSPHATASE 96 U/L (45-117); ALT (GPT) 53 U/L (12-78); ANION GAP 9 MEQ/L (5-15); AST (GOT) 198 U/L (15-37); BICARBONATE 29.7 MEQ/L (21.0-32.0); BLOOD UREA NITROGEN 5 MG/DL (7-18); GLOMERULAR FILTRATION RATE 203 ML/MIN (>89); TOTAL BILIRUBIN ADULT 2.5 MG/DL (0.2-1.0)
[2016-12-19] MEDS: SUCRALFATE 1 GM TAB PO SCH (07:47)
[2016-12-19 08:13] LABS: HEMATOCRIT 38.9 % (39.0-51.0)
[2016-12-19 08:27] LABS: REVIEW FLAG FINAL
[2016-12-19] MEDS: ONDANSETRON HCL 4 MG/2 ML VIAL IVP PRN (09:02)
[2016-12-19] MEDS: SODIUM CHLORIDE 0.9% FLUSH 10 ML FLUSH IV FLUSH SCH (09:02)
[2016-12-19] MEDS ORDERED: chlordiazePOXIDE 25 MG CAP PO SCH (10:00)
[2016-12-19] MEDS ORDERED: CARVEDILOL 6.25 MG TAB PO SCH (10:00)
--- NOTE | 2016-12-19 10:16 | HHI.PR ---
Subjective Remarks Patient seen and examined today with Dr. Adair. Patient alert and oriented x 3 , off precedex and following all commands. Still complaining of diffuse abdominal pain despite IV morphine. Patient wanting to go home, highly encouraged to stay to receive further imaging studies, labs and monitoring for safe withdrawal. Denies appetite or any further nausea or vomiting. Afebrile. Objective Vitals Vital Signs Date Time Temp Pulse Resp B/P Pulse Ox O2 Delivery O2 Flow Rate FiO2 12/19/16 06:00 102 12/19/16 06:00 106 30 131/94 96 12/19/16 05:36 22 12/19/16 05:30 100 18 127/81 12/19/16 05:15 104 22 125/89 12/19/16 05:00 100 25 127/83 12/19/16 04:45 100 26 128/87 12/19/16 04:30 100 29 127/83 12/19/16 04:15 100 27 142/96 12/19/16 04:00 97.6 100 28 131/86 12/19/16 04:00 99 12/19/16 03:45 100 28 118/77 12/19/16 03:15 98 24 139/88 95 12/19/16 03:00 100 27 124/80 95 12/19/16 02:45 100 22 124/80 12/19/16 02:30 98 25 131/86 12/19/16 02:20 100 27 131/93 12/19/16 02:00 102 12/19/16 02:00 100 28 115/80 12/19/16 01:45 100 28 117/81 12/19/16 01:30 98 25 109/68 12/19/16 01:15 100 26 123/82 94 12/19/16 00:15 102 26 131/90 94 12/19/16 00:00 103 12/19/16 00:00 97.8 102 28 146/96 94 12/18/16 23:45 102 28 133/93 93 12/18/16 23:30 106 26 140/96 94 12/18/16 23:15 102 28 126/99 93 12/18/16 23:00 102 29 140/95 93 12/18/16 23:00 140/95 12/18/16 22:45 104 28 143/93 94 12/18/16 22:45 104 28 143/93 94 12/18/16 22:30 106 30 133/88 94 12/18/16 22:15 104 27 140/92 93 12/18/16 22:00 104 12/18/16 22:00 112 34 148/83 95 12/18/16 21:45 108 31 145/97 94 12/18/16 21:30 106 26 149/102 93 12/18/16 21:15 108 32 141/93 94 12/18/16 21:00 106 27 135/92 94 12/18/16 20:45 106 27 147/91 93 12/18/16 20:30 106 27 148/92 92 12/18/16 20:15 106 26 144/94 94 12/18/16 20:00 97.8 106 27 150/97 94 12/18/16 20:00 107 12/18/16 19:52 108 30 132/85 93 12/18/16 19:45 108 26 92 12/18/16 19:30 108 43 174/108 96 12/18/16 19:15 104 34 165/120 94 12/18/16 19:00 106 32 94 12/18/16 18:45 110 25 167/104 94 12/18/16 18:15 168/108 12/18/16 18:00 98.2 104 28 180/113 96 12/18/16 17:10 104 16 189/101 99 Room Air 12/18/16 16:10 102 16 186/116 96 Room Air 12/18/16 15:10 102 17 188/116 98 Room Air 12/18/16 14:10 98 16 187/119 97 12/18/16 13:10 110 17 191/116 96 Room Air 12/18/16 12:40 18 12/18/16 12:26 18 12/18/16 12:05 114 18 189/114 98 Room Air 12/18/16 11:34 115 18 172/102 98 Room Air 12/18/16 10:58 112 18 185/104 97 Room Air 12/18/16 09:58 110 16 186/113 97 Room Air I/O 12/18/16 12/18/16 12/18/16 12/19/16 12/19/16 12/19/16 07:00 15:00 23:00 07:00 15:00 23:00 Intake Total 2300 ml 3366 ml 1707 ml Output Total 1400 ml 3100 ml 900 ml Balance 900 ml 266 ml 807 ml Intake Oral 240 ml 360 ml IV Total 1300 ml 3126 ml 1347 ml Packed Cells 1000 ml Output Urine Total 1400 ml 3100 ml 900 ml # Voids 3 3 # Bowel Movements 0 0 Result Diagram: 12/19/16 0730 12/19/16 0440 Objective Remarks GENERAL: Well developed patient lying in bed with no SOB noted, complaint of continued diffuse abdominal pain. SKIN: No rashes, ecchymoses or lesions. Cool and dry. HEAD: Atraumatic. Normocephalic. No temporal or scalp tenderness. EYES: Pupils equal round and reactive. Extraocular motions intact. Course lateral nystagmus noted. ENT: Throat without erythema, tonsillar hypertrophy or exudate. Airway patent. NECK: Trachea midline. No JVD or lymphadenopathy. Supple, nontender, no meningeal signs. CARDIOVASCULAR: Sinus tachycardia without murmurs, gallops, or rubs. RESPIRATORY: Clear to auscultation. Breath sounds equal bilaterally. No wheezes , rales, or rhonchi. GASTROINTESTINAL: Mildly distended, soft abdomen, tender to touch. Moderate pain to palpation throughout. Active BS x 4Q. MUSCULOSKELETAL: No cyanosis or edema of extremities. Clubbing noted of bilateral nail beds. No joint tenderness, effusion, or edema noted. No calf tenderness. Negative Homans sign bilaterally. NEUROLOGICAL: Awake and alert and oriented. Cranial nerves II through XII intact. Motor and sensory grossly within normal limits. Five out of 5 muscle strength in all muscle groups. 2+ tremors of bilateral upper extremities. Urinary Catheter: No Vascular Central Line Catheter: No A/P Assessment and Plan 1. Alcohol withdrawal: Off Precedex at this time. Monitoring CIWA. Starting Librium TID. Ativan PRN. Seizure precaution. 2. Acute pancreatitis: On clear liquid diet, monitor tolerability. 3. Intractable abdominal pain: Abdominal CT scan. Repeat lipase and ammonia today and in AM. Morphine PRN. 4. Melena: H&H WNL. Continue monitoring. Occult blood ordered. Continue Protonix daily. GI following. 5. Sinus Tachycardia: Start on Coreg, DC Norvasc. 6. Nausea and vomiting: Zofran and Compazine PRN. 7. Dehydration: Decrease IVF to LR at 100 ml/hr. Replace electrolytes as needed. 8. Tobacco abuse: Encouraged cessation. 9. Liver cirrhosis, elevated liver enzymes, hepatitis B and C: Liver enzymes trending down. Monitor bilirubin. 10. DVT prevention: SCDs. Written by Frank Rey PA-C, acting as scribe for Dr. Adair on 12/19/16 at 935. The documentation accurately reflects the work and decisions performed face-to- face by Dr. Adair on 12/19/16 at 935. Discharge Planning We received call from nursing staff in ICU, since mother has shown up patient has decided he is going to sign out AMA. Dr. Adair extensively spoke to patient about the danger of alcoholic withdrawals and the desire for further treatment and monitoring. Explained to patient that if patient left AMA there is a high likelihood of if not further monitored and treated. Reassured patient that all would be done to control his pain and anxiety. Furthermore, reassured that he would be monitored and would be assisted in his withdrawal. Despite speaking extensively about risks of leaving, patient still desires to leave. Frank Rey Dec 19, 2016 10:16
--- NOTE | 2016-12-19 13:25 | EKG ---
Date Performed: 12/18/2016 Time Performed: 14:18:38 PTAGE: 51 years EKG: Sinus tachycardia with PVC(s) ST junctional depression is nonspecific Borderline ECG PREVIOUS TRACING : 11/18/2016 06.22 Compared to prior tracing no significant change DOCTOR: Gerson Hernández Interpretating Date/Time 12/19/2016 13:22:43
--- NOTE | 2016-12-20 20:43 | HHI.GIFU ---
Subjective Remarks this is for visit done on 12/19/2016 patient is much better, not confused, seems to be over DT, he said he will never drink again Objective Vitals I&O I/O 12/19/16 12/19/16 12/19/16 12/20/16 12/20/16 12/20/16 07:00 15:00 23:00 07:00 15:00 23:00 Intake Total 1707 ml Output Total 900 ml Balance 807 ml Intake Oral 360 ml IV Total 1347 ml Output Urine Total 900 ml # Bowel Movements 0 Physical Exam HEENT: Pupils round and reactive to light; normocephalic; atraumatic; Throat is clear. NECK: Neck is supple, no JVD, no lymphadenopathy. CHEST: Chest is clear to auscultation and percussion. CARDIAC: Regular rate and rhythm with no murmur gallop or rubs. ABDOMEN: Soft, nondistended, nontender; no hepatosplenomegaly; bowel sounds are present in all four quadrants. EXTREMITIES: No clubbing, cyanosis, or edema. SKIN: Normal; no rash; no jaundice. DROP FORGER: No focal deficits; alert and oriented times three. Assessment and Plan Plan ETOH hepatitis with DT, doing better advise patient to stop ETOH completely. pancreatitis still having pain but improved contiune pain meds, hydration supportive care will need colon EGD could be done as outpatient. Daniel Beltran MD Dec 20, 2016 20:43
== END 2016-12-19 10:25 | disposition left against medical advice (07) | DRG 439 ==
LOC: PHED 03:12 → PHEDA 06:40 → PHEDH 10:58 → PHICU 18:15
PROVIDERS: ADMIT Family Medicine; ATTEND Family Medicine
DX: K85.20 Alcohol induced acute pancreatitis without necrosis or infection (principal); B19.10 Unspecified viral hepatitis B without hepatic coma; K74.60 Unspecified cirrhosis of liver; K26.9 Duodenal ulcer, unspecified as acute or chronic, without hemorrhage or perforation; J44.9 Chronic obstructive pulmonary disease, unspecified; F10.239 Alcohol dependence with withdrawal, unspecified; K92.1 Melena; K86.1 Other chronic pancreatitis; E86.0 Dehydration; R74.8 Abnormal levels of other serum enzymes; B19.20 Unspecified viral hepatitis C without hepatic coma; E87.6 Hypokalemia; I10 Essential (primary) hypertension; K21.9 Gastro-esophageal reflux disease without esophagitis; G47.00 Insomnia, unspecified; R00.2 Palpitations; Y90.6 Blood alcohol level of 120-199 mg/100 ml; M06.9 Rheumatoid arthritis, unspecified; G43.909 Migraine, unspecified, not intractable, without status migrainosus; G89.29 Other chronic pain; K86.81 Exocrine pancreatic insufficiency; F17.200 Nicotine dependence, unspecified, uncomplicated; Z87.11 Personal history of peptic ulcer disease
CPT/HCPCS: 80053; 80307; 81001; 83690; 83735; 85014; 85018; 85025; 87641; 93005; 96361; 96374; 96375; 96376; C9113; J0360; J1170; J1885; J2060; J2270; J2405; J2765; J3480; J7030; J7120

== ENCOUNTER 2017-01-11 08:30 | Inpatient (IN) | payer OTHER ==
[~2017-01-11] VITALS: Ht 198.1 cm; Wt 87.2 kg
[2017-01-11] VITALS (11 sets, daily range): BP systolic 126–160; BP diastolic 87–109; PULSE 104–122; RESP 18–20; TEMP 98–98.4; O2SAT 95–100
[~2017-01-11 08:30] MED LIST changes: -CHLO25CA2 PO; -MORP1TAB24 PO; -OXYC15TA PO
[2017-01-11 08:45] LABS: MEAN CORPUSCULAR HGB CONC 29.5 % (32.0-36.0)
[2017-01-11] MEDS ORDERED: SODIUM CHLOR 0.9% 1000 ML INJ 1,000 ML IV ONE (08:45)
[2017-01-11] MEDS ORDERED: FLUMAZENIL 0.5 MG/5 ML VIAL IV PUSH PRN (08:45)
[2017-01-11] MEDS ORDERED: FOLIC ACID 1 MG TAB PO ONE (08:45)
[2017-01-11] MEDS ORDERED: NITROGLYCERIN 0.4 MG SL 25 TABS/BTL SL ONE (08:45)
[2017-01-11] MEDS ORDERED: MULTIVITAMIN TAB PO ONE (08:45)
[2017-01-11] MEDS ORDERED: LORazepam 2 MG/ML VIAL IV PUSH PRN ×2 (08:45)
[2017-01-11] MEDS ORDERED: MORPHINE SULFATE 4 MG/ML INJ IV PUSH ONE (08:45)
[2017-01-11] MEDS ORDERED: THIAMINE HCL 100 MG TAB PO ONE (08:45)
[2017-01-11] MEDS ORDERED: LORazepam 2 MG TAB PO PRN (08:45)
[2017-01-11] MEDS ORDERED: ASPIRIN 81 MG CHEW TAB PO ONE (08:45)
[2017-01-11] MEDS ORDERED: OXYC15TA PO (08:58)
[2017-01-11] MEDS ORDERED: MORP1TAB24 PO (08:58)
[2017-01-11 08:59] LABS: AUTOMATED NEUTROPHIL # 9.4 TH/MM3 (1.8-7.7); BASOPHIL # 0.3 TH/MM3 (0-0.2); BASOPHIL % 3.1 % (0.0-2.0); EOSINOPHIL % 0.2 % (0.0-4.0); HEMATOCRIT 39.4 % (39.0-51.0); LYMPH % 9.4 % (9.0-44.0); LYMPHOCYTE # 1.1 TH/MM3 (1.0-4.8); MEAN CELL VOLUME 78.2 FL (80.0-100.0); MEAN CORPUSCULAR HEMOGLOBIN 23.1 PG (27.0-34.0); MONO % 4.5 % (0.0-8.0); NEUT % 82.8 % (16.0-70.0); PLATELET COUNT 229 TH/MM3 (150-450); RED BLOOD COUNT 5.04 MIL/MM3 (4.50-5.90); RED CELL DISTRIBUTION WIDTH 19.8 % (11.6-17.2); WHITE BLOOD COUNT 11.3 TH/MM3 (4.0-11.0)
[2017-01-11] MEDS ORDERED: LORazepam 2 MG/ML VIAL IM ONE ×2 (09:00→09:30)
[2017-01-11 09:03] LABS: HEMO FLAGS AUTO DIFF
[2017-01-11 09:04] LABS: CHLORIDE 103 MEQ/L (98-107); SODIUM (NA) 138 MEQ/L (136-145)
[2017-01-11 09:07] LABS: POTASSIUM 5.2 MEQ/L (3.5-5.1)
[2017-01-11 09:08] LABS: ANION GAP 11 MEQ/L (5-15); BICARBONATE 23.6 MEQ/L (21.0-32.0)
[2017-01-11 09:09] LABS: BLOOD UREA NITROGEN 7 MG/DL (7-18); MAGNESIUM 1.3 MG/DL (1.5-2.5)
--- NOTE | 2017-01-11 09:10 | RADHPO ---
EXAM DATE/TIME: 01/11/2017 08:56 [facility] COMPARISON: CHEST SINGLE AP, September 30, 2016, 23:02. CHEST SINGLE AP, November 18, 2016, 7:12. INDICATIONS : Chest pain today, MEDICAL HISTORY : TB SURGICAL HISTORY : None. ENCOUNTER: Initial ACUITY: 1 day PAIN SCORE: 6/10 LOCATION: Bilateral chest FINDINGS: The heart size is normal. There are numerous calcified granulomas in the upper lungs bilaterally. The re does appear to be some retraction superiorly of the hilar regions likely from scarring. The mid an d lower lungs are clear. A significant effusion is not seen. CONCLUSION: Numerous calcified granulomas and stable scarring in the upper lungs. Wesly Magana MD on January 11, 2017 at 9:07 Board Certified Radiologist. This report was verified electronically.
[2017-01-11 09:11] LABS: ALT (GPT) 52 U/L (12-78); AST (GOT) 186 U/L (15-37); GLOMERULAR FILTRATION RATE 137 ML/MIN (>89)
[2017-01-11 09:13] LABS: TOTAL BILIRUBIN ADULT 1.1 MG/DL (0.2-1.0)
[2017-01-11 09:14] LABS: ALKALINE PHOSPHATASE 111 U/L (45-117); CREATINE KINASE 347 U/L (39-308)
[2017-01-11 09:26] LABS: CKMB 1.7 NG/ML (0.5-3.6)
[2017-01-11] MEDS ORDERED: MAGNESIUM SULFATE 1 GM PREMIX 100 ML IV ONE (09:30)
[2017-01-11 09:35] LABS: SCAN/DIFF AUTO DIFF CONFIRMED
--- NOTE | 2017-01-11 09:43 | PD ---
HPI Chief Complaint: Chest Pain Time Seen by Provider: 08:43 Travel History International Travel<30 days: No Contact w/Intl Traveler<30days: No Traveled to known affect area: No History of Present Illness HPI Patient is a 51-year-old male ex-IV drug abuser, alcoholic, COPD who presents the emergency department with complaint of chest pain. Patient states that he has been trying to quit drinking. He typically drinks half a gallon of vodka daily. He stopped drinking approximately 2 days ago. He has felt increasingly tremulous, shaky since. He has been having some shortness of breath, occasional cough. He notes a tightness throughout the precordium, this does not radiate. He describes it as tight, heavy. Pain is mild to moderate. Patient feels as though his heart is racing, skipping beats. No documented history of arrhythmia. He's had a slight amount of epigastric discomfort, burning in nature associated with this. Notes a history of pancreatitis. No associated vomiting. PFSH Past Medical History Hx Anticoagulant Therapy: No Arthritis: Yes (RA) Asthma: No Blood Disorders: Yes (HEPATITIS B AND C NO TREATMENT) Anxiety: Yes Depression: Yes Heart Rhythm Problems: No Cancer: No Cardiovascular Problems: Yes High Cholesterol: No Chemotherapy: No Chest Pain: Yes (PALPITATIONS) Congestive Heart Failure: No Cirrhosis: Yes COPD: Yes Cerebrovascular Accident: No Diabetes: No Diminished Hearing: No Endocrine: No Gastrointestinal Disorders: Yes (PANCREATITIS) GERD: Yes Genitourinary: No Headaches: Yes Hepatitis: Yes (B & C) Hiatal Hernia: No Heparin Induced Thrombocytopen: No Herniated Disk: Yes Hypertension: Yes Immune Disorder: No Implanted Vascular Access Dvce: Yes Insomnia: Yes Kidney Stones: No Musculoskeletal: Yes (CHRONIC BACK PAIN) Neurologic: Yes Psychiatric: Yes Reproductive: No Respiratory: Yes Integumentary: Yes (HX IV DRUG USE) Immunizations Current: Yes Migraines: Yes Pancreatitis: Yes Pneumonia: Yes Radiation Therapy: No Renal Failure: No Seizures: No Sickle Cell Disease: No Sleep Apnea: No Thyroid Disease: No Ulcer: Yes Influenza Vaccination: Yes PNEUMOCCOCAL Vaccine (Year): 2 ?: Not Past Surgical History Abdominal Surgery: Yes (LIVER BIOPSY) AICD: No Arteriovenous Shunt: No Body Medical Devices: STEEL PLATE IN RIGHT ANKLE Cardiac Surgery: No Ear Surgery: No Endocrine Surgery: Yes (LIVER BIOPSY) Eye Surgery: No Genitourinary Surgery: No Gynecologic Surgery: No Hysterectomy: No Insulin Pump: No Joint Replacement: No Neurologic Surgery: No Oral Surgery: No Pacemaker: No Thoracic Surgery: Yes (CHEST TUBE- R/O TB 2009) Tonsillectomy: Yes Other Surgery: Yes (RIGHT ANKLE PLATE/SCREWS) Social History Alcohol Use: Yes ("TRYING TO QUIT, USUALLY 1/2 GALLON OF VODKA DAILY" STATED ) Tobacco Use: Yes (1/2 PPD) Substance Use: Yes (QUIT 2006) Allergies-Medications (Allergen,Severity, Reaction): Coded Allergies: Prednisone (Verified Allergy, Severe, Rash, 01/11/17) *MDRO Multi-Drug Resistant Organism (Verified Adverse Reaction, Unknown, Cleared, 01/11/17) MRSA arm wound 2008 MRSA PCR Screen negative 01/06/15 and 05/30/15. Cleared by Infection Control. Reported Meds & Prescriptions Reported Meds & Active Scripts Active Proair Hfa 8.5 GM Inh (Albuterol Sulfate) 90 Mcg/Act Aer 1 Puff INH Q4H PRN 108 mcg/actuation Pantoprazole (Pantoprazole Sodium) 40 Mg Tab 40 Mg PO BID Reported Morphine ER (Morphine Sulfate) 15 Mg Tab 15 Mg PO Q8H Oxycodone (Oxycodone HCl) 15 Mg Tab 15 Mg PO Q8HR Amlodipine (Amlodipine Besylate) 10 Mg Tab 10 Mg PO DAILY Sucralfate 1 Gm Tab 1 Gm PO QID on empty stomach Review of Systems Except as stated in HPI: all other systems reviewed are Neg Physical Exam Narrative GENERAL: Tremulous male appearing older than stated age in no acute distress SKIN: Focused skin assessment warm/dry. HEAD: Normocephalic. EYES: No scleral icterus. No injection or drainage. ENT: Mucous membranes pink and moist. NECK: Supple CARDIOVASCULAR: Tachycardic with heart rate in the 120s, regular rhythm. No murmur appreciated. RESPIRATORY: No accessory muscle use. Clear to auscultation. Breath sounds equal bilaterally. GASTROINTESTINAL: Abdomen soft, all the epigastric tenderness to palpation without rebound or guarding MUSCULOSKELETAL: No obvious deformities. No edema. NEUROLOGICAL: Awake and alert. Answers questions and follows commands appropriately. No obvious deficit. Fairly notable tremor PSYCHIATRIC: Poor insight and judgment Data Data Last Documented VS Vital Signs Date Time Temp Pulse Resp B/P Pulse Ox O2 Delivery O2 Flow Rate FiO2 01/11/17 09:32 122 18 139/87 100 Room Air 01/11/17 08:50 98.4 Orders Electrocardiogram (01/11/17 08:43) Ckmb (Isoenzyme) Profile (01/11/17 08:43) Complete Blood Count With Diff (01/11/17 08:43) Comprehensive Metabolic Panel (01/11/17 08:43) Magnesium (Mg) (01/11/17 08:43) Prothrombin Time / Inr (Pt) (01/11/17 08:43) Act Partial Throm Time (Ptt) (01/11/17 08:43) Troponin I (01/11/17 08:43) Lipase (01/11/17 08:43) Chest, Single Ap (01/11/17 08:43) Ecg Monitoring (01/11/17 08:43) Bilateral Bp Monitoring (01/11/17 08:43) Iv Access Insert/Monitor (01/11/17 08:43) Oximetry (01/11/17 08:43) Aspirin Chew (Aspirin Chew) (01/11/17 08:45) Morphine Inj (Morphine Inj) (01/11/17 08:45) Sodium Chloride 0.9% Flush (Ns Flush) (01/11/17 08:45) Nitroglycerin Sl (Nitrostat Sl) (01/11/17 08:45) Alcohol Withdrawal Asmt-Ciwa ONCE (01/11/17 08:43) Flumazenil Inj (Romazicon Inj) (01/11/17 08:45) Lorazepam (Ativan) (01/11/17 08:45) Lorazepam Inj (Ativan Inj) (01/11/17 08:45) Lorazepam (Ativan) (01/11/17 08:45) Lorazepam Inj (Ativan Inj) (01/11/17 08:45) Lorazepam Inj (Ativan Inj) (01/11/17 08:45) Lorazepam Inj (Ativan Inj) (01/11/17 08:45) Alcohol (Ethanol) (01/11/17 08:43) Sodium Chlor 0.9% 1000 Ml Inj (Ns 1000 M (01/11/17 08:45) Multivitamin (Theragran) (01/11/17 08:45) Thiamine (Vit B1) (Vitamin B1) (01/11/17 08:45) Folic Acid (Folate) (01/11/17 08:45) Lorazepam Inj (Ativan Inj) (01/11/17 09:00) CKMB (01/11/17 08:45) CKMB% (01/11/17 08:45) Magnesium Sulfate 1 Gm Premix (Magnesium (01/11/17 09:30) Lorazepam Inj (Ativan Inj) (01/11/17 09:30) Admit Order (Ed Use Only) (01/11/17 09:43) Labs Laboratory Tests Test 01/11/17 08:45 White Blood Count 11.3 TH/MM3 Red Blood Count 5.04 MIL/MM3 Hemoglobin 11.6 GM/DL Hematocrit 39.4 % Mean Corpuscular Volume 78.2 FL Mean Corpuscular Hemoglobin 23.1 PG Mean Corpuscular Hemoglobin 29.5 % Concent Red Cell Distribution Width 19.8 % Platelet Count 229 TH/MM3 Mean Platelet Volume 8.1 FL Neutrophils (%) (Auto) 82.8 % Lymphocytes (%) (Auto) 9.4 % Monocytes (%) (Auto) 4.5 % Eosinophils (%) (Auto) 0.2 % Basophils (%) (Auto) 3.1 % Neutrophils # (Auto) 9.4 TH/MM3 Lymphocytes # (Auto) 1.1 TH/MM3 Monocytes # (Auto) 0.5 TH/MM3 Eosinophils # (Auto) 0.0 TH/MM3 Basophils # (Auto) 0.3 TH/MM3 CBC Comment AUTO DIFF Differential Comment AUTO DIFF CONFIRMED Sodium Level 138 MEQ/L Potassium Level 5.2 MEQ/L Chloride Level 103 MEQ/L Carbon Dioxide Level 23.6 MEQ/L Anion Gap 11 MEQ/L Blood Urea Nitrogen 7 MG/DL Creatinine 0.62 MG/DL Estimat Glomerular Filtration 137 ML/MIN Rate Random Glucose 137 MG/DL Calcium Level 9.4 MG/DL Magnesium Level 1.3 MG/DL Total Bilirubin 1.1 MG/DL Aspartate Amino Transf 186 U/L (AST/SGOT) Alanine Aminotransferase 52 U/L (ALT/SGPT) Alkaline Phosphatase 111 U/L Total Creatine Kinase 347 U/L Creatine Kinase MB 1.7 NG/ML Creatine Kinase MB % 0.5 % Troponin I LESS THAN 0.02 NG/ML Total Protein 8.0 GM/DL Albumin 3.7 GM/DL Lipase 214 U/L Ethyl Alcohol Level 19 MG/DL MDM Medical Decision Making Medical Screen Exam Complete: Yes Emergency Medical Condition: Yes Medical Record Reviewed: Yes Differential Diagnosis 51-year-old male with history of ex-IV drug abuse, alcoholism, COPD here with chest pain, shortness of breath, palpitations and epigastric discomfort, tremors since decreasing his alcohol use and take 2 days ago. Differential includes alcohol withdrawal, alcoholic gastritis, pancreatitis, ACS, arrhythmia , electrolyte abnormality, COPD exacerbation. Narrative Course Patient placed on monitor. Given his ex-IV drug abuse and tremors it's difficult to establish IV that we did get blood. Patient was given a total 2 mg Ativan IM with improvement of his tremors. And then we were able to establish IV access. Twelve-lead EKG shows sinus tachycardia, rate [address] abnormalities, normal intervals. Patient was given aspirin, morphine , nitroglycerin, 1 L normal saline bolus, thiamine/folate/multivitamin. He was placed on our ED CIWA protocol. CBC, CMP, lipase, CK-MB, troponin, magnesium, coags obtained and notable for potassium 5.2 that this is slightly hemolyzed. Magnesium low at 1.3. Patient replaced with 1 g IV. Blood alcohol level 19. Consideration of using Precedex drip for alcohol withdrawal but I do not think patient is symptomatic enough to warranted at this time, he has not had filled benzodiazepines. Patient will be admitted to ICU for further management of alcohol withdrawal and serial cardiac enzymes. Critical Care Narrative Aggregate critical care time was 40 minutes. Time to perform other separately billable procedures was not included in the critical care time. My time did not include minutes spent treating any other patients simultaneously or on activities that did not directly contribute to the patient's treatment. The services I provided to this patient were to treat and/or prevent clinically significant deterioration that could result in: Cardiopulmonary decompensation, neurologic decompensation, , disability I provided critical care services requiring my management, as noted below: Chart data review, documentation time, medication orders and management, vital sign assessments/reviewing monitor data, ordering and reviewing lab tests, ordering and interpreting/reviewing x-rays and diagnostic studies, care of the patient and discussion of the patient with the admitting physicians. Diagnosis Primary Impression: Alcohol withdrawal Qualified Code: F10.239 - Alcohol withdrawal, with unspecified complication Additional Impressions: Chest pain Qualified Code: R07.9 - Chest pain, unspecified type Hypomagnesemia Admitting Information Admitting Physician Requests: it Alessandra Pitts MD Jan 11, 2017 09:43
[2017-01-11] MEDS ORDERED: ONDANSETRON HCL 4 MG/2 ML VIAL IV PRN (09:45)
[2017-01-11] MEDS: SODIUM CHLOR 0.9% 1000 ML INJ 1,000 ML IV SCH ×2 (10:46→20:45)
[2017-01-11 10:54] LABS: APTT (PATIENT) 26.5 SEC (24.3-30.1); PROTHROMBIN TIME - PATIENT 11.4 SEC (9.8-11.6)
[2017-01-11] MEDS: THIAMINE INJ 100 MG in SODIUM CHLORIDE 0.9% INJ 100 ML IV SCH (11:14)
[2017-01-11] MEDS: MULTIVITAMIN INJ 10 ML, FOLIC ACID INJ 1 MG in SODIUM CHLORID 0.9% 500 ML INJ 500 ML IV SCH (11:14)
[2017-01-11] MEDS: PANTOPRAZOLE SOD 40 MG DELAYED RELEASE TAB PO SCH ×2 (11:14→20:44)
[2017-01-11] MEDS: LORazepam 1 MG TAB PO PRN ×2 (13:36→20:44)
[2017-01-11] MEDS: cloNIDine HCL 0.1 MG TAB PO SCH (13:36)
--- NOTE | 2017-01-11 14:26 | HHI.HP ---
[facility] Service [facility] Primary Care Physician Maribell Chang MD Admission Diagnosis etoh withdrawal, chest pain Diagnoses: (1) Alcohol withdrawal (2) Chest pain (3) Hypomagnesemia (4) Elevated liver enzymes (5) Nausea & vomiting Chief Complaint: Chest pain Travel History International Travel<30 Days: No Contact w/Intl Traveler <30 Da: No Traveled to Known Affected Are: No History of Present Illness The patient is a 51-year-old male with history of alcohol abuse and remote history of IV drug abuse. He presented to the emergency department complaining of chest pain that started this morning. Describes the pain is on the left side of his chest, nonradiating. He reports cough productive of dark sputum at times. No diaphoresis. Chest pain has improved. He reports nausea and vomiting, nonbloody. Does have abdominal pain which he attributes to chronic pancreatitis. He states his last drink was 2 days ago, when he had "a few beers ". He has been trying to quit drinking alcohol, but develops withdrawal symptoms every time he tries to stop. Review of Systems Constitutional: DENIES: Fever, Chills, Night Sweats Eyes: DENIES: Blurred vision, Vision loss Ears, nose, mouth, throat: DENIES: Hearing loss Respiratory: COMPLAINS OF: Cough, Sputum production, DENIES: Wheezing, Shortness of breath Cardiovascular: COMPLAINS OF: Chest pain, DENIES: Palpitations, Dyspnea on Exertion, Lower Extremity Edema Gastrointestinal: COMPLAINS OF: Abdominal pain, Nausea, Vomiting, DENIES: Constipation, Diarrhea Genitourinary: DENIES: Urinary frequency, Urinary incontinence, Urgency, Hematuria, Dysuria, Nocturia Musculoskeletal: DENIES: Joint pain, Muscle aches Integumentary: DENIES: Pruritus, Rash Hematologic/lymphatic: DENIES: Bruising Neurologic: COMPLAINS OF: Tremor, DENIES: Headache Past Family Social History Past Medical History Rheumatoid arthritis Hepatitis B Hepatitis C Anxiety/depression Cirrhosis of the liver COPD Chronic pancreatitis GERD Hypertension Past Surgical History Liver biopsy Right ankle surgery Reported Medications Proair Hfa 8.5 GM Inh (Albuterol Sulfate) 90 Mcg/Act Aer 1 Puff INH Q4H PRN 108 mcg/actuation Pantoprazole (Pantoprazole Sodium) 40 Mg Tab 40 Mg PO BID Morphine ER (Morphine Sulfate) 15 Mg Tab 15 Mg PO Q8H Oxycodone (Oxycodone HCl) 15 Mg Tab 15 Mg PO Q8HR Amlodipine (Amlodipine Besylate) 10 Mg Tab 10 Mg PO DAILY Sucralfate 1 Gm Tab 1 Gm PO QID on empty stomach Allergies: Coded Allergies: Prednisone (Verified Allergy, Severe, Rash, 01/11/17) *MDRO Multi-Drug Resistant Organism (Verified Adverse Reaction, Unknown, Cleared, 01/11/17) MRSA arm wound 2009 MRSA PCR Screen negative 01/06/15 and 05/30/15. Cleared by Infection Control. Family History COPD Heart disease Social History He states that he is trying to quit smoking and trying to quit drinking alcohol. He has reported drinking up to a half gallon of vodka daily previously. Smokes about half a pack per day. Denies recent IV drug abuse. States that he last used illicit drugs 10 years ago. Physical Exam Vital Signs Vital Signs Date Time Temp Pulse Resp B/P Pulse Ox O2 Delivery O2 Flow Rate FiO2 01/11/17 13:39 105 99 Room Air 01/11/17 13:37 104 20 126/102 99 Room Air 01/11/17 11:36 110 18 157/100 98 Room Air 01/11/17 11:36 110 100 Room Air 01/11/17 10:52 18 01/11/17 09:32 122 18 139/87 100 Room Air 01/11/17 09:26 18 01/11/17 09:07 122 20 155/109 99 Room Air 01/11/17 08:52 122 01/11/17 08:50 98.4 122 20 159/106 99 Physical Exam GENERAL: Well-nourished, well-developed male in no acute distress. Tremulous. HEENT: Normocephalic, atraumatic. Pupils equal, round and reactive. Extraocular movements intact. No scleral icterus. No injection or drainage. Oropharynx is clear. Mucous membranes are moist. Poor dentition. CARDIOVASCULAR: Tachycardic. RESPIRATORY: Clear to auscultation. No wheezes, rales, or rhonchi. Breathing is non-labored. GASTROINTESTINAL: Abdomen soft, non-tender, nondistended. EXTREMITIES: No lower extremity edema. No calf tenderness. PSYCH: Alert and oriented x 3. Laboratory Laboratory Tests Test 01/11/17 01/11/17 08:45 10:30 White Blood Count 11.3 Red Blood Count 5.04 Hemoglobin 11.6 Hematocrit 39.4 Mean Corpuscular Volume 78.2 Mean Corpuscular Hemoglobin 23.1 Mean Corpuscular Hemoglobin 29.5 Concent Red Cell Distribution Width 19.8 Platelet Count 229 Mean Platelet Volume 8.1 Neutrophils (%) (Auto) 82.8 Lymphocytes (%) (Auto) 9.4 Monocytes (%) (Auto) 4.5 Eosinophils (%) (Auto) 0.2 Basophils (%) (Auto) 3.1 Neutrophils # (Auto) 9.4 Lymphocytes # (Auto) 1.1 Monocytes # (Auto) 0.5 Eosinophils # (Auto) 0.0 Basophils # (Auto) 0.3 CBC Comment AUTO DIFF Differential Comment AUTO DIFF CONFIRMED Sodium Level 138 Potassium Level 5.2 Chloride Level 103 Carbon Dioxide Level 23.6 Anion Gap 11 Blood Urea Nitrogen 7 Creatinine 0.62 Estimat Glomerular Filtration 137 Rate Random Glucose 137 Calcium Level 9.4 Magnesium Level 1.3 Total Bilirubin 1.1 Aspartate Amino Transf 186 (AST/SGOT) Alanine Aminotransferase 52 (ALT/SGPT) Alkaline Phosphatase 111 Total Creatine Kinase 347 Creatine Kinase MB 1.7 Creatine Kinase MB % 0.5 Troponin I LESS THAN 0.02 Total Protein 8.0 Albumin 3.7 Lipase 214 Ethyl Alcohol Level 19 Prothrombin Time 11.4 Prothromb Time International 1.0 Ratio Activated Partial 26.5 Thromboplast Time Result Diagram: 01/11/1745 01/11/1745 Imaging Last Impressions Chest X-Ray 01/11/17 0843 Signed Impressions: Service Date/Time: Wednesday, January 11, 2017 08:56 - CONCLUSION: Numerous calcified granulomas and stable scarring in the upper lungs. Wesly Magana MD Assessment and Plan Assessment and Plan 1. Alcohol withdrawal: Patient has been counseled regarding cessation of alcohol use. Continue CIWA protocol, clonidine. Admit to ICU. Alcohol withdrawal /seizure precautions. Supplement folic acid, thiamine. 2. Chest pain: Initial cardiac enzymes are negative. Check serial enzymes and EKGs. Monitor on telemetry. 3. GERD: Continue PPI, sucralfate. 4. Hypertension: Continue amlodipine. 5. COPD: Not in exacerbation. Bronchodilators as needed. 6. DVT prophylaxis: Devon, SLIME yip. Problem Qualifiers (1) Alcohol withdrawal: Qualified Code: F10.239 - Alcohol withdrawal, with unspecified complication (2) Chest pain: Qualified Code: R07.9 - Chest pain, unspecified type Frank Oliver MD Jan 11, 2017 14:26
[2017-01-11] MEDS ORDERED: RESP: ALBUTEROL 2.5 MG/IPRATROPIUM 0.5 MG NEB (PRN) NEB (14:30)
[2017-01-11] MEDS: MORPHINE SULFATE 15 MG CONTROLLED RELEASE TAB PO SCH ×2 (14:47→22:19)
[2017-01-11 16:15] LABS: CREATINE KINASE 274 U/L (39-308)
[2017-01-11 16:27] LABS: CKMB 1.1 NG/ML (0.5-3.6)
[2017-01-11] MEDS: SUCRALFATE 1 GM TAB PO SCH ×2 (17:22→20:44)
[2017-01-11 22:27] LABS: CREATINE KINASE 315 U/L (39-308)
[2017-01-11 22:39] LABS: CKMB 0.8 NG/ML (0.5-3.6)
[2017-01-12] VITALS (8 sets, daily range): BP systolic 118–146; BP diastolic 85–98; PULSE 93–110; RESP 18–24; TEMP 96.4–98.9; O2SAT 95–100
[2017-01-12] MEDS: LORazepam 2 MG/ML VIAL IV PUSH PRN ×5 (00:05→23:46)
[2017-01-12] MEDS: cloNIDine HCL 0.1 MG TAB PO SCH ×3 (05:37→21:26)
[2017-01-12] MEDS: MORPHINE SULFATE 15 MG CONTROLLED RELEASE TAB PO SCH ×3 (05:38→21:26)
[2017-01-12] MEDS: SODIUM CHLOR 0.9% 1000 ML INJ 1,000 ML IV SCH (05:39)
[2017-01-12] MEDS: SUCRALFATE 1 GM TAB PO SCH ×4 (08:34→20:55)
[2017-01-12] MEDS: PANTOPRAZOLE SOD 40 MG DELAYED RELEASE TAB PO SCH ×3 (08:34→20:54)
[2017-01-12 08:50] LABS: AUTOMATED NEUTROPHIL # 5.1 TH/MM3 (1.8-7.7); BASOPHIL % 0.7 % (0.0-2.0); EOSINOPHIL # 0.2 TH/MM3 (0-0.4); EOSINOPHIL % 2.2 % (0.0-4.0); HEMATOCRIT 34.9 % (39.0-51.0); LYMPH % 18.8 % (9.0-44.0); LYMPHOCYTE # 1.3 TH/MM3 (1.0-4.8); MEAN CELL VOLUME 76.9 FL (80.0-100.0); MEAN CORPUSCULAR HEMOGLOBIN 24.9 PG (27.0-34.0); MEAN CORPUSCULAR HGB CONC 32.4 % (32.0-36.0); MONO % 3.7 % (0.0-8.0); NEUT % 74.6 % (16.0-70.0); PLATELET COUNT 130 TH/MM3 (150-450); RED BLOOD COUNT 4.54 MIL/MM3 (4.50-5.90); RED CELL DISTRIBUTION WIDTH 19.1 % (11.6-17.2); WHITE BLOOD COUNT 6.9 TH/MM3 (4.0-11.0)
[2017-01-12 08:53] LABS: HEMO FLAGS AUTO DIFF
[2017-01-12 09:04] LABS: ALT (GPT) 37 U/L (12-78); ANION GAP 8 MEQ/L (5-15); AST (GOT) 108 U/L (15-37); BICARBONATE 25.7 MEQ/L (21.0-32.0); BLOOD UREA NITROGEN 3 MG/DL (7-18); CHLORIDE 104 MEQ/L (98-107); GLOMERULAR FILTRATION RATE 198 ML/MIN (>89); POTASSIUM 3.3 MEQ/L (3.5-5.1); SODIUM (NA) 138 MEQ/L (136-145)
[2017-01-12 09:08] LABS: ALKALINE PHOSPHATASE 93 U/L (45-117); TOTAL BILIRUBIN ADULT 1.6 MG/DL (0.2-1.0)
--- NOTE | 2017-01-12 09:11 | HHI.PR ---
Subjective Remarks Follow-up alcohol withdrawal, chest pain. Patient denies chest pain currently. Denies nausea or vomiting. Tolerating clear liquids. Objective Vitals Vital Signs Date Time Temp Pulse Resp B/P Pulse Ox O2 Delivery O2 Flow Rate FiO2 01/12/17 08:00 97.9 98 20 127/86 99 01/12/17 07:00 18 01/12/17 05:36 97.5 98 18 135/91 97 01/12/17 01:47 98.9 110 20 146/97 97 01/12/17 00:04 108 18 144/95 98 Room Air 01/11/17 22:00 104 20 160/88 98 01/11/17 20:20 107 20 136/88 98 01/11/17 19:53 109 20 96 01/11/17 19:05 109 20 139/88 96 Room Air 01/11/17 19:05 109 20 139/88 95 01/11/17 18:09 117 20 140/94 100 Room Air 01/11/17 16:15 104 18 144/91 99 Room Air 01/11/17 14:26 98.0 108 18 144/89 99 Room Air 01/11/17 13:39 105 99 Room Air 01/11/17 13:37 104 20 126/102 99 Room Air 01/11/17 11:36 110 18 157/100 98 Room Air 01/11/17 11:36 110 100 Room Air 01/11/17 10:52 18 01/11/17 09:32 122 18 139/87 100 Room Air 01/11/17 09:26 18 I/O 01/11/17 01/11/17 01/11/17 01/12/17 01/12/17 01/12/17 07:00 15:00 23:00 07:00 15:00 23:00 Intake Total 1940 ml 600 ml 800 ml Output Total 600 ml 3300 ml Balance 1340 ml -2700 ml 800 ml Intake Oral 240 ml 600 ml IV Total 1700 ml 800 ml Output Urine Total 600 ml 3300 ml # Voids 1 10 Result Diagram: 01/12/17 0802 01/12/17 0802 Imaging Last Impressions Chest X-Ray 01/11/17 0843 Signed Impressions: Service Date/Time: Wednesday, January 11, 2017 08:56 - CONCLUSION: Numerous calcified granulomas and stable scarring in the upper lungs. Wesly Magana MD Objective Remarks General: No acute distress. Mildly tremulous. Heart: Regular rate and rhythm. No murmur. Lungs: Clear to auscultation bilaterally. No wheezes, rales, or rhonchi. Breathing is nonlabored. Abdomen: Soft, nontender, nondistended. Extremities: No lower extremity edema. Psych: Alert and oriented. Procedures 01/11/17 central line placement Urinary Catheter: No Vascular Central Line Catheter: Yes Assessment to: Continue Date of Insertion: Jan 11, 2017 Line: Central Venous Catheter Side: Right Location: Jugular A/P Problem List: (1) Alcohol withdrawal ICD Code: F10.239 Status: Acute (2) Chest pain ICD Code: R07.9 Status: Acute (3) Hypomagnesemia ICD Code: E83.42 Status: Acute (4) Elevated liver enzymes ICD Code: R74.8 Status: Acute (5) Nausea & vomiting ICD Code: R11.2 Status: Acute Assessment and Plan 1. Alcohol withdrawal: Improving. Patient has been counseled regarding cessation of alcohol use. Continue CIWA protocol, clonidine. Alcohol withdrawal/ seizure precautions. Supplement folic acid, thiamine. 2. Chest pain: Serial cardiac enzymes are negative. Monitor on telemetry. 3. GERD: Continue PPI, sucralfate. 4. Hypertension: Continue amlodipine. 5. COPD: Not in exacerbation. Bronchodilators as needed. 6. DVT prophylaxis: SCDs, SLIME yip. Problem Qualifiers (1) Alcohol withdrawal: Qualified Code: F10.239 - Alcohol withdrawal, with unspecified complication (2) Chest pain: Qualified Code: R07.9 - Chest pain, unspecified type Frank Oliver MD Jan 12, 2017 09:10
[2017-01-12 09:18] LABS: SCAN/DIFF AUTO DIFF CONFIRMED
[2017-01-12] MEDS ORDERED: POTASSIUM CHLORIDE 20 MEQ CONTROLLED RELEASE TAB PO ONE (09:45)
[2017-01-12] MEDS: NS + KCL 20 MEQ INJ 1,000 ML IV SCH ×2 (09:54→20:54)
[2017-01-12] MEDS: MULTIVITAMIN INJ 10 ML, FOLIC ACID INJ 1 MG in SODIUM CHLORID 0.9% 500 ML INJ 500 ML IV SCH (10:54)
[2017-01-12] MEDS: THIAMINE INJ 100 MG in SODIUM CHLORIDE 0.9% INJ 100 ML IV SCH (10:54)
[2017-01-12] MEDS: LORazepam 1 MG TAB PO PRN ×2 (12:14→16:02)
--- NOTE | 2017-01-12 13:37 | EKG ---
Date Performed: 01/11/2017 Time Performed: 15:17:20 PTAGE: 51 years EKG: Sinus tachycardia Compared to prior tracing no significant change Normal ECG except for rat e PREVIOUS TRACING : 01/11/2017 08.25 DOCTOR: Xavi Cannon Interpretating Date/Time 01/12/2017 13:33:11
--- NOTE | 2017-01-12 13:38 | EKG ---
Date Performed: 01/11/2017 Time Performed: 08:25:34 PTAGE: 51 years EKG: Sinus tachycardia Possible right atrial abnormality Compared to prior tracing no significan t change Borderline ECG PREVIOUS TRACING : 12/18/2016 14.18 DOCTOR: Xavi Cannon Interpretating Date/Time 01/12/2017 13:33:26
[2017-01-12] MEDS: SODIUM CHLORIDE 0.9% FLUSH 10 ML FLUSH IVF PRN ×2 (20:54→22:19)
[2017-01-13] VITALS (7 sets, daily range): BP systolic 120–139; BP diastolic 82–98; PULSE 81–104; RESP 18–20; TEMP 96–97; O2SAT 95–99
[2017-01-13] MEDS: SODIUM CHLORIDE 0.9% FLUSH 10 ML FLUSH IVF PRN ×3 (01:30→04:41)
[2017-01-13] MEDS: LORazepam 2 MG/ML VIAL IV PUSH PRN ×4 (01:30→16:37)
[2017-01-13] MEDS: MORPHINE SULFATE 15 MG CONTROLLED RELEASE TAB PO SCH ×3 (05:31→22:14)
[2017-01-13] MEDS: HALOPERIDOL LACTATE 5 MG/ML AMP IM PRN ×4 (05:31→14:37)
[2017-01-13] MEDS: cloNIDine HCL 0.1 MG TAB PO SCH ×3 (05:31→22:13)
[2017-01-13] MEDS: NS + KCL 20 MEQ INJ 1,000 ML IV SCH ×2 (05:36→14:04)
[2017-01-13] MEDS: chlordiazePOXIDE 25 MG CAP PO PRN ×2 (10:17→19:41)
[2017-01-13] MEDS: SUCRALFATE 1 GM TAB PO SCH ×4 (10:17→19:41)
[2017-01-13] MEDS: PANTOPRAZOLE SOD 40 MG DELAYED RELEASE TAB PO SCH ×2 (10:18→19:41)
[2017-01-13] MEDS: THIAMINE INJ 100 MG in SODIUM CHLORIDE 0.9% INJ 100 ML IV SCH (11:00)
--- NOTE | 2017-01-13 11:50 | HHI.PR ---
Subjective Remarks Follow up alcohol withdrawal. Patient reports abdominal pain. He reportedly had significant agitation and hallucinations overnight. Still tremulous. Objective Vitals Vital Signs Date Time Temp Pulse Resp B/P Pulse Ox O2 Delivery O2 Flow Rate FiO2 01/13/17 11:17 88 01/13/17 08:00 96.1 88 18 132/98 95 01/13/17 04:00 96.0 104 18 130/96 97 01/13/17 00:00 97.0 102 18 139/82 97 01/12/17 20:00 96 01/12/17 20:00 97.7 97 18 133/90 100 01/12/17 17:03 18 01/12/17 16:00 96.4 93 24 126/98 95 01/12/17 14:38 18 01/12/17 12:00 96.9 110 24 118/85 98 I/O 01/12/17 01/12/17 01/12/17 01/13/17 01/13/17 01/13/17 07:00 15:00 23:00 07:00 15:00 23:00 Intake Total 800 ml 1460 ml 2478 ml 492 ml Output Total 1250 ml 2130 ml Balance 800 ml 210 ml 348 ml 492 ml Intake Oral 860 ml 690 ml 240 ml IV Total 800 ml 600 ml 1788 ml 252 ml Output Urine Total 1250 ml 2130 ml # Voids 5 # Bowel Movements 0 0 Result Diagram: 01/12/17 0802 01/12/17 0802 Imaging Last Impressions Chest X-Ray 01/11/17 0843 Signed Impressions: Service Date/Time: Wednesday, January 11, 2017 08:56 - CONCLUSION: Numerous calcified granulomas and stable scarring in the upper lungs. Wesly Magana MD Objective Remarks General: No acute distress. Mildly tremulous. Heart: Regular rate and rhythm. No murmur. Lungs: Clear to auscultation bilaterally. No wheezes, rales, or rhonchi. Breathing is nonlabored. Abdomen: Soft, nontender, nondistended. Extremities: No lower extremity edema. Psych: Alert and oriented. Procedures 01/11/17 central line placement Urinary Catheter: No Vascular Central Line Catheter: No A/P Problem List: (1) Alcohol withdrawal ICD Code: F10.239 Status: Acute (2) Chest pain ICD Code: R07.9 Status: Acute (3) Hypomagnesemia ICD Code: E83.42 Status: Acute (4) Elevated liver enzymes ICD Code: R74.8 Status: Acute (5) Nausea & vomiting ICD Code: R11.2 Status: Acute Assessment and Plan 1. Alcohol withdrawal: Patient has been counseled regarding cessation of alcohol use. Continue CIWA protocol, clonidine, Librium. Alcohol withdrawal/ seizure precautions. Supplement folic acid, thiamine. 2. Chest pain: Serial cardiac enzymes are negative. Monitor on telemetry. 3. GERD: Continue PPI, sucralfate. 4. Hypertension: Continue amlodipine. 5. COPD: Not in exacerbation. Bronchodilators as needed. 6. DVT prophylaxis: SLIME Osorio. Problem Qualifiers (1) Alcohol withdrawal: Qualified Code: F10.239 - Alcohol withdrawal, with unspecified complication (2) Chest pain: Qualified Code: R07.9 - Chest pain, unspecified type Frank Oliver MD Jan 13, 2017 11:50
[2017-01-13] MEDS: MULTIVITAMIN INJ 10 ML, FOLIC ACID INJ 1 MG in SODIUM CHLORID 0.9% 500 ML INJ 500 ML IV SCH (12:18)
[2017-01-13] MEDS: LORazepam 1 MG TAB PO PRN ×2 (12:26→22:13)
[2017-01-13] MEDS ORDERED: BISACODYL 10 MG SUPP RECTAL PRN (13:15)
--- NOTE | 2017-01-13 14:20 | EKG ---
Date Performed: 01/11/2017 Time Performed: 21:43:14 PTAGE: 51 years EKG: Sinus tachycardia Compared to prior tracing no significant change Normal ECG except for rat e PREVIOUS TRACING : 01/11/2017 15.17 DOCTOR: David Roper Interpretating Date/Time 01/13/2017 14:19:20
[2017-01-13] MEDS ORDERED: chlordiazePOXIDE 25 MG CAP PO PRN (23:00)
[2017-01-14] VITALS: BP 109/72; PULSE 95; RESP 18; TEMP 97.4; O2SAT 97
[2017-01-14] MEDS: NS + KCL 20 MEQ INJ 1,000 ML IV SCH (01:30)
[2017-01-14] MEDS: LORazepam 1 MG TAB PO PRN ×3 (02:03→09:07)
[2017-01-14 05:00] VITALS: BP 105/70
[2017-01-14] MEDS: cloNIDine HCL 0.1 MG TAB PO SCH (05:30)
[2017-01-14] MEDS: MORPHINE SULFATE 15 MG CONTROLLED RELEASE TAB PO SCH (05:33)
[2017-01-14 08:00] VITALS: BP 132/98; PULSE 88; RESP 20; TEMP 98.5; O2SAT 99
[2017-01-14 08:01] LABS: AUTOMATED NEUTROPHIL # 2.7 TH/MM3 (1.8-7.7); BASOPHIL # 0.1 TH/MM3 (0-0.2); BASOPHIL % 1.7 % (0.0-2.0); EOSINOPHIL # 0.3 TH/MM3 (0-0.4); HEMATOCRIT 35.2 % (39.0-51.0); HEMO FLAGS DIFF FINAL; LYMPH % 28.8 % (9.0-44.0); LYMPHOCYTE # 1.4 TH/MM3 (1.0-4.8); MEAN CELL VOLUME 79.6 FL (80.0-100.0); MEAN CORPUSCULAR HEMOGLOBIN 25.4 PG (27.0-34.0); MEAN CORPUSCULAR HGB CONC 31.9 % (32.0-36.0); MONO % 5.2 % (0.0-8.0); NEUT % 57.3 % (16.0-70.0); PLATELET COUNT 126 TH/MM3 (150-450); RED BLOOD COUNT 4.43 MIL/MM3 (4.50-5.90); RED CELL DISTRIBUTION WIDTH 20.2 % (11.6-17.2); WHITE BLOOD COUNT 4.7 TH/MM3 (4.0-11.0)
[2017-01-14 08:06] LABS: CHLORIDE 105 MEQ/L (98-107); POTASSIUM 3.8 MEQ/L (3.5-5.1); SODIUM (NA) 139 MEQ/L (136-145)
[2017-01-14 08:10] LABS: ANION GAP 7 MEQ/L (5-15); BICARBONATE 27.3 MEQ/L (21.0-32.0); BLOOD UREA NITROGEN 5 MG/DL (7-18)
[2017-01-14 08:12] LABS: ALT (GPT) 68 U/L (12-78)
[2017-01-14 08:13] LABS: AST (GOT) 193 U/L (15-37); GLOMERULAR FILTRATION RATE 188 ML/MIN (>89)
[2017-01-14 08:14] LABS: TOTAL BILIRUBIN ADULT 0.8 MG/DL (0.2-1.0)
[2017-01-14 08:16] LABS: ALKALINE PHOSPHATASE 82 U/L (45-117)
[2017-01-14] MEDS: PANTOPRAZOLE SOD 40 MG DELAYED RELEASE TAB PO SCH (09:06)
[2017-01-14] MEDS: SUCRALFATE 1 GM TAB PO SCH (09:07)
[2017-01-14 12:00] VITALS: BP 151/101; PULSE 84; RESP 20; TEMP 98; O2SAT 100
--- NOTE | 2017-01-14 12:13 | HHI.PR ---
Subjective Remarks Follow-up alcohol withdrawal. Patient states that he is feeling better today. Abdominal pain has resolved. Less agitated. Objective Vitals Vital Signs Date Time Temp Pulse Resp B/P Pulse Ox O2 Delivery O2 Flow Rate FiO2 01/14/17 08:00 98.5 88 20 132/98 99 01/14/17 05:00 105/70 01/14/17 00:00 97.4 95 18 109/72 97 01/13/17 20:00 97.0 81 20 130/91 99 01/13/17 16:00 97.0 89 18 120/88 95 01/13/17 13:37 18 01/13/17 13:37 18 I/O 01/13/17 01/13/17 01/13/17 01/14/17 01/14/17 01/14/17 07:00 15:00 23:00 07:00 15:00 23:00 Intake Total 492 ml 3102 ml 1520 ml Balance 492 ml 3102 ml 1520 ml Intake Oral 240 ml 1602 ml 720 ml IV Total 252 ml 1500 ml 800 ml # Voids 5 4 # Bowel Movements 0 0 Result Diagram: 01/14/1730 01/14/17 0730 Imaging Last Impressions Chest X-Ray 01/11/17 0843 Signed Impressions: Service Date/Time: Wednesday, January 11, 2017 08:56 - CONCLUSION: Numerous calcified granulomas and stable scarring in the upper lungs. Wesly Magana MD Objective Remarks General: No acute distress. Mildly tremulous. Heart: Regular rate and rhythm. No murmur. Lungs: Clear to auscultation bilaterally. No wheezes, rales, or rhonchi. Breathing is nonlabored. Abdomen: Soft, nontender, nondistended. Extremities: No lower extremity edema. Psych: Alert and oriented. Procedures 01/11/17 central line placement Urinary Catheter: No Vascular Central Line Catheter: No A/P Problem List: (1) Alcohol withdrawal ICD Code: F10.239 Status: Acute (2) Chest pain ICD Code: R07.9 Status: Acute (3) Hypomagnesemia ICD Code: E83.42 Status: Acute (4) Elevated liver enzymes ICD Code: R74.8 Status: Acute (5) Nausea & vomiting ICD Code: R11.2 Status: Acute Assessment and Plan 1. Alcohol withdrawal: Patient has been counseled regarding cessation of alcohol use. Continue CIWA protocol. Alcohol withdrawal/seizure precautions. Supplement folic acid, thiamine. Symptoms are improving. 2. Chest pain: Serial cardiac enzymes are negative. Monitor on telemetry. 3. GERD: Continue PPI, sucralfate. 4. Hypertension: Continue amlodipine. 5. COPD: Not in exacerbation. Bronchodilators as needed. 6. DVT prophylaxis: Devon, SLIME yip. Problem Qualifiers (1) Alcohol withdrawal: Qualified Code: F10.239 - Alcohol withdrawal, with unspecified complication (2) Chest pain: Qualified Code: R07.9 - Chest pain, unspecified type Frank Oliver MD Jan 14, 2017 12:13
[2017-01-15] MEDS ORDERED: THIAMINE HCL 100 MG TAB PO SCH (09:00)
--- NOTE | 2017-03-04 14:35 | HHI.DS ---
Discharge Summary Admission Date Jan 11, 2017 at 09:45 Discharge Date: Jan 14, 2017 Admitting Diagnosis etoh withdrawal, chest pain (1) Alcohol withdrawal ICD Code: F10.239 (2) Chest pain ICD Code: R07.9 (3) Hypomagnesemia ICD Code: E83.42 (4) Elevated liver enzymes ICD Code: R74.8 (5) Nausea & vomiting ICD Code: R11.2 Procedures 01/11/17 central line placement Brief History - From Admission The patient is a 51-year-old male with history of alcohol abuse and remote history of IV drug abuse. He presented to the emergency department complaining of chest pain that started this morning. Describes the pain is on the left side of his chest, nonradiating. He reports cough productive of dark sputum at times. No diaphoresis. Chest pain has improved. He reports nausea and vomiting, nonbloody. Does have abdominal pain which he attributes to chronic pancreatitis. He states his last drink was 2 days ago, when he had "a few beers ". He has been trying to quit drinking alcohol, but develops withdrawal symptoms every time he tries to stop. Imaging Last Impressions Chest X-Ray 01/11/17 0843 Signed Impressions: Service Date/Time: Wednesday, January 11, 2017 08:56 - CONCLUSION: Numerous calcified granulomas and stable scarring in the upper lungs. Wesly Magana MD PE at Discharge General: No acute distress. Mildly tremulous. Heart: Regular rate and rhythm. No murmur. Lungs: Clear to auscultation bilaterally. No wheezes, rales, or rhonchi. Breathing is nonlabored. Abdomen: Soft, nontender, nondistended. Extremities: No lower extremity edema. Psych: Alert and oriented. Hospital Course Patient was admitted for management of alcohol withdrawal. He was continued on CIWA protocol, clonidine. He was initially admitted to ICU. He was given folic acid, multivitamin, and thiamine supplements. He complained of chest pain. Serial cardiac enzymes were negative. He was counseled regarding cessation of alcohol use. The patient started to improve and decided to sign out AGAINST MEDICAL ADVICE. Pt Condition on Discharge: Fair Discharge Disposition: Discharge Home (AGAINST MEDICAL ADVICE) Discharge Time: <= 30 minutes Frank Oliver MD Mar 04, 2017 14:35
== END 2017-01-14 15:10 | disposition left against medical advice (07) | DRG 894 ==
LOC: PHED 08:30 → PHEDA 09:45 → PHEDH 13:44 → PH3A 01-12 01:27
PROVIDERS: ADMIT Family Medicine; ATTEND Family Medicine
PROC: 05HN33Z Insertion of Infusion Device into Left Internal Jugular Vein, Percutaneous Approach (ICD-10-PCS; principal; 2017-01-11)
DX: F10.239 Alcohol dependence with withdrawal, unspecified (principal); K74.60 Unspecified cirrhosis of liver; B19.10 Unspecified viral hepatitis B without hepatic coma; B19.20 Unspecified viral hepatitis C without hepatic coma; K86.1 Other chronic pancreatitis; E83.42 Hypomagnesemia; J44.9 Chronic obstructive pulmonary disease, unspecified; I10 Essential (primary) hypertension; R07.9 Chest pain, unspecified; M06.9 Rheumatoid arthritis, unspecified; F41.9 Anxiety disorder, unspecified; F32.9 Major depressive disorder, single episode, unspecified; K21.9 Gastro-esophageal reflux disease without esophagitis; G47.00 Insomnia, unspecified; M54.9 Dorsalgia, unspecified; G89.29 Other chronic pain; F17.210 Nicotine dependence, cigarettes, uncomplicated; Z86.14 Personal history of Methicillin resistant Staphylococcus aureus infection; Y90.0 Blood alcohol level of less than 20 mg/100 ml; R74.8 Abnormal levels of other serum enzymes
CPT/HCPCS: 71010; 76937; 80053; 80307; 82550; 82552; 82948; 83690; 83735; 84484; 85025; 85610; 85730; 93005; 96372; J1630; J2060; J2270; J3411; J3475; J3480; J7030; J7040

== ENCOUNTER 2017-02-09 01:24 | Emergency (ER) | payer OTHER ==
[~2017-02-09] VITALS: Ht 188 cm; Wt 75.0 kg
[~2017-02-09 01:24] MED LIST changes: +MORP1TAB24 PO; +OXYC15TA PO
[2017-02-09 01:41] VITALS: BP 150/85; PULSE 115; RESP 16; TEMP 98.7; O2SAT 100
[2017-02-09] MEDS ORDERED: LORazepam 2 MG/ML VIAL IV ONE (01:45)
[2017-02-09 02:08] VITALS: O2SAT 97
[2017-02-09 02:14] LABS: EOSINOPHIL % 2.1 % (0.0-4.0); HEMATOCRIT 44.2 % (39.0-51.0); LYMPH % 61.1 % (9.0-44.0); MEAN CELL VOLUME 79.5 FL (80.0-100.0); MEAN CORPUSCULAR HEMOGLOBIN 24.8 PG (27.0-34.0); MEAN CORPUSCULAR HGB CONC 31.2 % (32.0-36.0); NEUT % 28.8 % (16.0-70.0); PLATELET COUNT 210 TH/MM3 (150-450); RED BLOOD COUNT 5.57 MIL/MM3 (4.50-5.90); RED CELL DISTRIBUTION WIDTH 20.8 % (11.6-17.2); WHITE BLOOD COUNT 6.8 TH/MM3 (4.0-11.0)
[2017-02-09 02:15] LABS: AUTOMATED NEUTROPHIL # 1.9 TH/MM3 (1.8-7.7); BASOPHIL # 0.1 TH/MM3 (0-0.2); EOSINOPHIL # 0.1 TH/MM3 (0-0.4); LYMPHOCYTE # 4.1 TH/MM3 (1.0-4.8)
[2017-02-09 02:16] LABS: AMPHETAMINE, URINE NEG (NEG); BARBITURATES, URINE NEG (NEG); COCAINE, URINE NEG (NEG)
[2017-02-09 02:20] LABS: HEMO FLAGS AUTO DIFF
[2017-02-09 02:29] LABS: ALKALINE PHOSPHATASE 109 U/L (45-117); TOTAL BILIRUBIN ADULT 0.4 MG/DL (0.2-1.0)
[2017-02-09 02:31] LABS: ALT (GPT) 45 U/L (12-78); ANION GAP 12 MEQ/L (5-15); AST (GOT) 140 U/L (15-37); BICARBONATE 23.1 MEQ/L (21.0-32.0); BLOOD UREA NITROGEN 12 MG/DL (7-18); CHLORIDE 107 MEQ/L (98-107); GLOMERULAR FILTRATION RATE 70 ML/MIN (>89); SODIUM (NA) 142 MEQ/L (136-145)
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
[2017-02-09 02:41] LABS: ACETAMINOPHEN LESS THAN 2.0 MCG/ML (10.0-30.0)
[2017-02-09 03:14] LABS: SCAN/DIFF AUTO DIFF CONFIRMED
[2017-02-09 06:21] VITALS: BP 122/79; PULSE 74; RESP 16; TEMP 98.9; O2SAT 99
[2017-02-09 07:19] VITALS: BP 160/106; PULSE 96; RESP 20; O2SAT 97
[2017-02-09] MEDS ORDERED: ACETAMINOPHEN 500 MG CPLT PO ONE (07:45)
--- NOTE | 2017-02-09 09:28 | PD ---
Physical Exam Narrative Informed by nurse that pt is complaining of frontal headache. Pt was evaluated at bedside and states he has frontal headache now. No focal neurologic deficits on exam. Pt admits to drinking a lot last night. Acetaminophen 500mg PO given. Pt reevaluated at bedside and headache has improved. Pt waiting for psych evaluation. Psych lifted arthur act. Stepfather is here to olive picker patient. Data Data Last Documented VS Vital Signs Date Time Temp Pulse Resp B/P Pulse Ox O2 Delivery O2 Flow Rate FiO2 02/09/17 07:19 96 20 160/106 97 Room Air 02/09/17 06:21 98.9 Orders Complete Blood Count With Diff (02/09/17 01:40) Comprehensive Metabolic Panel (02/09/17 01:40) Oximetry (02/09/17 01:40) Iv Access Insert/Monitor (02/09/17 01:40) Ecg Monitoring (02/09/17 01:40) Cath For Specimen (02/09/17 01:40) Psych Screen (02/09/17 01:40) Lorazepam Inj (Ativan Inj) (02/09/17 01:45) Restraints Violent (02/09/17 01:40) Drug Screen, Random Urine (02/09/17 01:40) Alcohol (Ethanol) (02/09/17 01:40) Salicylates (Aspirin) (02/09/17 01:40) Tylenol (Acetaminophen) (02/09/17 01:40) Acetaminophen (Tylenol) (02/09/17 07:45) Labs Laboratory Tests Test 02/09/17 01:30 White Blood Count 6.8 TH/MM3 Red Blood Count 5.57 MIL/MM3 Hemoglobin 13.8 GM/DL Hematocrit 44.2 % Mean Corpuscular Volume 79.5 FL Mean Corpuscular Hemoglobin 24.8 PG Mean Corpuscular Hemoglobin 31.2 % Concent Red Cell Distribution Width 20.8 % Platelet Count 210 TH/MM3 Mean Platelet Volume 7.5 FL Neutrophils (%) (Auto) 28.8 % Lymphocytes (%) (Auto) 61.1 % Monocytes (%) (Auto) 7.0 % Eosinophils (%) (Auto) 2.1 % Basophils (%) (Auto) 1.0 % Neutrophils # (Auto) 1.9 TH/MM3 Lymphocytes # (Auto) 4.1 TH/MM3 Monocytes # (Auto) 0.5 TH/MM3 Eosinophils # (Auto) 0.1 TH/MM3 Basophils # (Auto) 0.1 TH/MM3 CBC Comment AUTO DIFF Differential Comment AUTO DIFF CONFIRMED Sodium Level 142 MEQ/L Potassium Level 5.0 MEQ/L Chloride Level 107 MEQ/L Carbon Dioxide Level 23.1 MEQ/L Anion Gap 12 MEQ/L Blood Urea Nitrogen 12 MG/DL Creatinine 1.11 MG/DL Estimat Glomerular Filtration 70 ML/MIN Rate Random Glucose 125 MG/DL Calcium Level 9.1 MG/DL Total Bilirubin 0.4 MG/DL Aspartate Amino Transf 140 U/L (AST/SGOT) Alanine Aminotransferase 45 U/L (ALT/SGPT) Alkaline Phosphatase 109 U/L Total Protein 8.8 GM/DL Albumin 4.1 GM/DL Salicylates Level LESS THAN 1.7 MG/DL Urine Opiates Screen NEG Acetaminophen Level LESS THAN 2.0 MCG/ML Urine Barbiturates Screen NEG Urine Amphetamines Screen NEG Urine Benzodiazepines Screen NEG Urine Cocaine Screen NEG Urine Cannabinoids Screen NEG Ethyl Alcohol Level 299 MG/DL [facility] Supervised Visit with APOLLO: No Diagnosis Primary Impression: Alcohol intoxication Qualified Code: F10.920 - Alcohol intoxication, uncomplicated Additional Impression: Threatening to others Patient Instructions: General Instructions, Alcohol Intoxication (ED) Departure Forms: Tests/Procedures Disposition: 01 DISCHARGE HOME Condition: Stable ForteKimberly loredo February 09, 2017 09:27
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
== END 2017-02-09 10:33 | disposition home or self-care (01) ==
LOC: NEPC 01:24
DX: F10.120 Alcohol abuse with intoxication, uncomplicated (principal); F10.94 Alcohol use, unspecified with alcohol-induced mood disorder; I10 Essential (primary) hypertension; F17.210 Nicotine dependence, cigarettes, uncomplicated; R51 Headache
CPT/HCPCS: 80053; 80307; 85025; 96374; 99284; J2060; P9612

== ENCOUNTER 2017-02-13 18:54 | Inpatient (IN) | payer OTHER ==
[~2017-02-13] VITALS: Ht 188 cm; Wt 120.8 kg
[2017-02-13] MEDS ORDERED: SODIUM CHLOR 0.9% 1000 ML INJ 1,000 ML IV SCH (19:08)
[2017-02-13] MEDS ORDERED: SODIUM CHLORIDE 0.9% FLUSH 10 ML FLUSH IVF PRN (19:15)
[2017-02-13] MEDS ORDERED: THIAMINE INJ 100 MG in SODIUM CHLORIDE 0.9% INJ 100 ML IV ONE (19:15)
[2017-02-13 19:16] VITALS: BP 149/100; PULSE 93; RESP 16; TEMP 98.4
--- NOTE | 2017-02-13 19:22 | PD ---
HPI Chief Complaint: overdose, Rose act Time Seen by Provider: 19:00 Travel History International Travel<30 days: No Contact w/Intl Traveler<30days: No Traveled to known affect area: No History of Present Illness HPI 54-year-old male presents under Rose act initiated by the Police Department. Reportedly the the patient got his usual oxycodone 20 mg prescription filled this morning, 84 tablets total. He reports that he got drunk, drink a lot of vodka and then took 20-30 tablets. His mother found him on the porch sleeping and slumped over in the chair. EMS was called. Upon their arrival his GCS was 13, his respiratory rate was 6 and so he was given 0.4 mg of Narcan. He immediately became more responsive with a GCS of 15. He was then placed under Rose act because of the substance use. It was felt to be possibly intentional because he admitted to depression. EMS does note that all 80 for his tablets were missing from the bottle. The patient estimates that he took 20-30 tablets , he denies using the entire contents of the bottle. He denies any attempts at harming himself, he reports that because he was drunk he took 2 many pills. He reports chronic back pain as well as pain in both hands from recently falling on an oyster bed. Besides alcohol He denies any other coingestions. Denies any suicidal or homicidal ideation. No other complaints. PFSH Past Medical History Hx Anticoagulant Therapy: No Arthritis: Yes (RA) Asthma: No Blood Disorders: Yes (HEPATITIS B AND C NO TREATMENT) Anxiety: Yes Depression: Yes Heart Rhythm Problems: No Cancer: No Cardiovascular Problems: Yes High Cholesterol: No Chemotherapy: No Chest Pain: Yes (PALPITATIONS) Congestive Heart Failure: No Cirrhosis: Yes COPD: Yes Cerebrovascular Accident: No Diabetes: No Diminished Hearing: No Endocrine: No Gastrointestinal Disorders: Yes (PANCREATITIS) GERD: Yes Genitourinary: No Headaches: Yes Hepatitis: Yes (B & C) Hiatal Hernia: No Heparin Induced Thrombocytopen: No Herniated Disk: Yes Hypertension: Yes Immune Disorder: No Implanted Vascular Access Dvce: Yes Insomnia: Yes Kidney Stones: No Musculoskeletal: Yes (CHRONIC BACK PAIN) Neurologic: Yes Psychiatric: Yes Reproductive: No Respiratory: Yes Integumentary: Yes (HX IV DRUG USE) Immunizations Current: Yes Migraines: Yes Pancreatitis: Yes Pneumonia: Yes Radiation Therapy: No Renal Failure: No Seizures: No Sickle Cell Disease: No Sleep Apnea: No Thyroid Disease: No Ulcer: Yes PNEUMOCCOCAL Vaccine (Year): 2 Past Surgical History Abdominal Surgery: Yes (LIVER BIOPSY) AICD: No Arteriovenous Shunt: No Body Medical Devices: STEEL PLATE IN RIGHT ANKLE Cardiac Surgery: No Ear Surgery: No Endocrine Surgery: Yes (LIVER BIOPSY) Eye Surgery: No Genitourinary Surgery: No Gynecologic Surgery: No Hysterectomy: No Insulin Pump: No Joint Replacement: No Neurologic Surgery: No Oral Surgery: No Pacemaker: No Thoracic Surgery: Yes (CHEST TUBE- R/O TB 2009) Tonsillectomy: Yes Other Surgery: Yes (RIGHT ANKLE PLATE/SCREWS) Social History Alcohol Use: Yes ("TRYING TO QUIT, USUALLY 1/2 GALLON OF VODKA DAILY" STATED ) Tobacco Use: Yes (1/2 PPD) Substance Use: Yes Allergies-Medications (Allergen,Severity, Reaction): Coded Allergies: Prednisone (Verified Allergy, Severe, Rash, 01/11/17) *MDRO Multi-Drug Resistant Organism (Verified Adverse Reaction, Unknown, Cleared, 01/11/17) MRSA arm wound 2008 MRSA PCR Screen negative 01/06/15 and 05/30/15. Cleared by Infection Control. Reported Meds & Prescriptions Reported Meds & Active Scripts Active Proair Hfa 8.5 GM Inh (Albuterol Sulfate) 90 Mcg/Act Aer 1 Puff INH Q4H PRN 108 mcg/actuation Reported Protonix (Pantoprazole Sodium) 40 Mg Tab 40 Mg PO BID Morphine ER (Morphine Sulfate) 15 Mg Tab 15 Mg PO Q8H Oxycodone (Oxycodone HCl) 15 Mg Tab 15 Mg PO Q8HR Amlodipine (Amlodipine Besylate) 10 Mg Tab 10 Mg PO DAILY Sucralfate 1 Gm Tab 1 Gm PO QID on empty stomach Review of Systems Except as stated in HPI: all other systems reviewed are Neg Physical Exam Narrative GENERAL: Disheveled-appearing male who is in no acute distress. He is answering questions appropriately. He has slurred speech but he is awake and alert. SKIN: Warm and dry. Some superficial abrasions noted to both hands. Nonerythematous. HEAD: Atraumatic. Normocephalic. EYES: Pupils equal and round. No scleral icterus. No injection or drainage. ENT: No nasal bleeding or discharge. Mucous membranes pink and moist. NECK: Trachea midline. No JVD. CARDIOVASCULAR: Regular rate and rhythm. No murmur appreciated. RESPIRATORY: No accessory muscle use. Clear to auscultation. Breath sounds equal bilaterally. GASTROINTESTINAL: Abdomen soft, non-tender, nondistended. Hepatic and splenic margins not palpable. MUSCULOSKELETAL: No obvious deformities. No clubbing. No cyanosis. No edema. NEUROLOGICAL: Awake and alert. No obvious cranial nerve deficits. Motor grossly within normal limits. Slurred Data Data Last Documented VS Vital Signs Date Time Temp Pulse Resp B/P Pulse Ox O2 Delivery O2 Flow Rate FiO2 02/13/17 19:54 86 16 118/73 97 Room Air 02/13/17 19:16 98.4 Orders Electrocardiogram (02/13/17 19:08) Complete Blood Count With Diff (02/13/17 19:08) Comprehensive Metabolic Panel (02/13/17 19:08) Iv Access Insert/Monitor (02/13/17 19:08) Ecg Monitoring (02/13/17 19:08) Oximetry (02/13/17 19:08) Sodium Chloride 0.9% Flush (Ns Flush) (02/13/17 19:15) Drug Screen, Random Urine (02/13/17 19:08) Alcohol (Ethanol) (02/13/17 19:08) Salicylates (Aspirin) (02/13/17 19:08) Tylenol (Acetaminophen) (02/13/17 19:08) Thiamine Inj (Thiamine Inj) (02/13/17 19:15) Sodium Chlor 0.9% 1000 Ml Inj (Ns 1000 M (02/13/17 19:08) Psych Screen (02/13/17 19:12) Call Poison Control (02/13/17 19:12) Tetanus/Diphtheria Tox Adult (Tetanus/Di (02/13/17 19:30) Labs Laboratory Tests Test 02/13/17 19:30 White Blood Count 5.7 TH/MM3 Red Blood Count 4.62 MIL/MM3 Hemoglobin 11.3 GM/DL Hematocrit 36.5 % Mean Corpuscular Volume 79.0 FL Mean Corpuscular Hemoglobin 24.4 PG Mean Corpuscular Hemoglobin 30.9 % Concent Red Cell Distribution Width 20.7 % Platelet Count 221 TH/MM3 Mean Platelet Volume 7.3 FL Neutrophils (%) (Auto) 51.6 % Lymphocytes (%) (Auto) 39.9 % Monocytes (%) (Auto) 5.7 % Eosinophils (%) (Auto) 1.2 % Basophils (%) (Auto) 1.6 % Neutrophils # (Auto) 2.9 TH/MM3 Lymphocytes # (Auto) 2.3 TH/MM3 Monocytes # (Auto) 0.3 TH/MM3 Eosinophils # (Auto) 0.1 TH/MM3 Basophils # (Auto) 0.1 TH/MM3 CBC Comment DIFF FINAL Differential Comment Sodium Level 145 MEQ/L Potassium Level 4.0 MEQ/L Chloride Level 110 MEQ/L Carbon Dioxide Level 25.2 MEQ/L Anion Gap 10 MEQ/L Blood Urea Nitrogen 7 MG/DL Creatinine 0.71 MG/DL Estimat Glomerular Filtration 117 ML/MIN Rate Random Glucose 90 MG/DL Calcium Level 8.1 MG/DL Total Bilirubin 0.5 MG/DL Aspartate Amino Transf 106 U/L (AST/SGOT) Alanine Aminotransferase 37 U/L (ALT/SGPT) Alkaline Phosphatase 85 U/L Total Protein 7.2 GM/DL Albumin 3.5 GM/DL Salicylates Level 3.2 MG/DL Acetaminophen Level LESS THAN 2.0 MCG/ML Ethyl Alcohol Level 286 MG/DL MDM Medical Decision Making Medical Screen Exam Complete: Yes Emergency Medical Condition: Yes Medical Record Reviewed: Yes Differential Diagnosis Opiate overdose, polysubstance abuse, suicide attempts, respiratory arrest Narrative Course Discussed with poison control who recommends overdose workup, supportive care, observe until completely asymptomatic. Mental health screening discussed with the patient. Psychiatric screen ordered. Laboratory dysmenorrhea. Alcohol level is 286. Because of the extent of time that will be required until the patient is completely asymptomatic and stable for medical clearance, the patient will be admitted for observation. The sitter has been ordered. Psychiatry consultation has been ordered. Diagnosis Primary Impression: Opiate overdose Qualified Code: T40.604A - Opiate overdose, undetermined intent, initial encounter Additional Impression: Alcohol intoxication Qualified Code: F10.920 - Alcohol intoxication, uncomplicated Admitting Information Admitting Physician Requests: Observation José Miguel De Jesus February 13, 2017 19:22
[2017-02-13] MEDS ORDERED: TETANUS/DIPHTHERIA TOXOID ADULT 0.5 ML VIAL IM ONE (19:30)
[2017-02-13 19:46] LABS: AUTOMATED NEUTROPHIL # 2.9 TH/MM3 (1.8-7.7); BASOPHIL # 0.1 TH/MM3 (0-0.2); BASOPHIL % 1.6 % (0.0-2.0); EOSINOPHIL # 0.1 TH/MM3 (0-0.4); EOSINOPHIL % 1.2 % (0.0-4.0); HEMATOCRIT 36.5 % (39.0-51.0); HEMO FLAGS DIFF FINAL; LYMPH % 39.9 % (9.0-44.0); LYMPHOCYTE # 2.3 TH/MM3 (1.0-4.8); MEAN CORPUSCULAR HEMOGLOBIN 24.4 PG (27.0-34.0); MEAN CORPUSCULAR HGB CONC 30.9 % (32.0-36.0); MONO % 5.7 % (0.0-8.0); NEUT % 51.6 % (16.0-70.0); PLATELET COUNT 221 TH/MM3 (150-450); RED BLOOD COUNT 4.62 MIL/MM3 (4.50-5.90); RED CELL DISTRIBUTION WIDTH 20.7 % (11.6-17.2); WHITE BLOOD COUNT 5.7 TH/MM3 (4.0-11.0)
[2017-02-13 19:54] VITALS: BP 118/73; PULSE 86; RESP 16; O2SAT 97
[2017-02-13 20:08] LABS: ANION GAP 10 MEQ/L (5-15); AST (GOT) 106 U/L (15-37); BICARBONATE 25.2 MEQ/L (21.0-32.0); BLOOD UREA NITROGEN 7 MG/DL (7-18); CHLORIDE 110 MEQ/L (98-107); GLOMERULAR FILTRATION RATE 117 ML/MIN (>89); SODIUM (NA) 145 MEQ/L (136-145)
[2017-02-13 20:12] LABS: ACETAMINOPHEN LESS THAN 2.0 MCG/ML (10.0-30.0); ALKALINE PHOSPHATASE 85 U/L (45-117); ALT (GPT) 37 U/L (12-78); TOTAL BILIRUBIN ADULT 0.5 MG/DL (0.2-1.0)
[2017-02-13] MEDS ORDERED: PROT40TA PO (21:15)
[2017-02-13] MEDS ORDERED: NALOXONE HCL 0.4 MG/ML AMP IV PRN (22:00)
[2017-02-13] MEDS ORDERED: SODIUM CHLORIDE 0.9% FLUSH 10 ML FLUSH IV FLUSH PRN (22:00)
[2017-02-13 22:39] VITALS: BP 128/77
[2017-02-13 23:02] VITALS: BP 144/95; PULSE 88; RESP 16; TEMP 95.5; O2SAT 94
[2017-02-13] MEDS ORDERED: IBUPROFEN 400 MG TAB PO ONE (23:30)
[2017-02-14] VITALS (8 sets, daily range): BP systolic 144–168; BP diastolic 79–101; PULSE 79–93; RESP 16–20; TEMP 96.4–98.2; O2SAT 95–97
[2017-02-14] MEDS ORDERED: FLUMAZENIL 0.5 MG/5 ML VIAL IV PUSH PRN (00:45)
[2017-02-14] MEDS ORDERED: LORazepam 2 MG/ML VIAL IV PUSH PRN ×4 (00:45)
[2017-02-14] MEDS: LORazepam 2 MG TAB PO PRN ×2 (01:02→21:21)
--- NOTE | 2017-02-14 01:25 | HHI.HP ---
HPI Service [facility] Primary Care Physician Maribell Chang MD Admission Diagnosis opiate overdose, alcohol intoxication, Rose act Diagnoses: Chief Complaint: Rose act with Opiate overdose and EtOH abuse Travel History International Travel<30 Days: No Contact w/Intl Traveler <30 Da: No Traveled to Known Affected Are: No History of Present Illness Written by Susy Jones, acting as scribe for Dr. Allan on 02/14/17 at 02: 09. Is a 51-year-old male patient with past medical history which includes EtOH abuse, GI bleed status post cauterization, hypertension, COPD, hepatitis B and C with cirrhosis, seizures from EtOH withdrawal, chronic pain herniated disc sciatic nerve pain and TB. Patient is a poor historian currently drowsy and drifting off to sleep through out interview process, information gathered from patient, prior computerized charting and police Rose act report. Patient reports he is in the hospital because, "I have a drinking problem and took too many of my pain medications." Patient's mother found him called EMS- [facility] arrival patient was given Narcan. Per patient he took approximately 20 oxycodone 20 mg tablets along with half a gallon of vodka. Patient denies suicide attempt or intent. Patient reports he was just trying to get ride of the pain. Review of police Rose act report there were 84 oxycodone 20 mg tablets missing from his prescription was filled . Patient reports he had diarrhea on Friday and unable to elaborate. Denies black tarry stool, bright red blood per rectum, coffee emesis, or vomiting red blood. Patient denies chest pain, SOB, N/V/D, pain or burning with urination at this time. Review of Systems ROS Limitations: Clinical Condition, Intoxication, Poor Historian Except as stated in HPI: all other systems reviewed are Neg Past Family Social History Past Medical History ETOH abuse, GI bleed s/p cautery, HTN, COPD, Hepatitis B and C, cirrhosis, seizure from ETOH withdraw, chronic pain, herniate disk, sciatic nerve pain, TB, Past Surgical History EGD with cautery of ulcer Reported Medications Proair Hfa 8.5 GM Inh (Albuterol Sulfate) 90 Mcg/Act Aer 1 Puff INH Q4H PRN 108 mcg/actuation Protonix (Pantoprazole Sodium) 40 Mg Tab 40 Mg PO BID Morphine ER (Morphine Sulfate) 15 Mg Tab 15 Mg PO Q8H Oxycodone (Oxycodone HCl) 15 Mg Tab 15 Mg PO Q8HR Amlodipine (Amlodipine Besylate) 10 Mg Tab 10 Mg PO DAILY Sucralfate 1 Gm Tab 1 Gm PO QID on empty stomach Allergies: Coded Allergies: Prednisone (Verified Allergy, Severe, Rash, 01/11/17) *MDRO Multi-Drug Resistant Organism (Verified Adverse Reaction, Unknown, Cleared, 01/11/17) MRSA arm wound 2008 MRSA PCR Screen negative 01/06/15 and 05/30/15. Cleared by Infection Control. Active Ordered Medications Current Medications Medications (Trade) Dose Ordered Sig/Karlos Route Start Time Stop Time Status Last Admin (NS Flush) 2 ml UNSCH PRN IVF 02/13/17 19:15 (NS Flush) 2 ml UNSCH PRN IV FLUSH 02/13/17 22:00 (NS Flush) 2 ml BID IV FLUSH 02/14/17 09:00 (Narcan Inj) 0.4 mg UNSCH PRN IV 02/13/17 22:00 (Folate) 1 mg DAILY PO 02/14/17 09:00 02/19/17 08:59 (Vitamin B1) 100 mg DAILY PO 02/14/17 09:00 (Protonix) 40 mg DAILY PO 02/14/17 09:00 (Romazicon Inj) 0.2 mg Q1M PRN IV PUSH 02/14/17 00:45 (Ativan) 1 mg Q4H PRN PO 02/14/17 00:45 (Ativan Inj) 1 mg Q4H PRN IV PUSH 02/14/17 00:45 (Ativan) 2 mg Q2H PRN PO 02/14/17 00:45 02/14/17 01:02 (Ativan Inj) 2 mg Q2H PRN IV PUSH 02/14/17 00:45 (Ativan Inj) 2 mg Q1H PRN IV PUSH 02/14/17 00:45 (Ativan Inj) 2 mg Q15M PRN IV PUSH 02/14/17 00:45 (Ativan) 2 mg Q4H PO 02/14/17 01:30 02/14/17 02:28 Family History Brother secondary to OD Mother has pancreatitis and RA Uncles secondary to GA Social History ETOH use daily vodka use 0.5 gallons Tobacco use 0.5 PPD Illicit drug use denies at this time, "I used to along time ago." Physical Exam Vital Signs Vital Signs Date Time Temp Pulse Resp B/P Pulse Ox O2 Delivery O2 Flow Rate FiO2 02/14/17 00:32 18 02/13/17 22:39 90 16 128/77 96 Nasal Cannula 2 02/13/17 19:54 86 16 118/73 97 Room Air 02/13/17 19:16 98.4 93 16 149/100 Physical Exam GENERAL: This is a well-nourished, well-developed patient, drowsy and drifting off to sleep through out interview process SKIN: No rashes, ecchymoses or lesions. Cool and dry. HEAD: Atraumatic. Normocephalic. No temporal or scalp tenderness. EYES: Pupils pin point. Extraocular motions intact. No scleral icterus. No injection or drainage. CARDIOVASCULAR: Regular rate and rhythm without murmurs, gallops, or rubs. RESPIRATORY: Clear to auscultation. Breath sounds equal bilaterally. No wheezes , rales, or rhonchi. GASTROINTESTINAL: Abdomen soft, tender to palpation RUQ, distended. hepatomegaly , or palpable masses. No guarding. MUSCULOSKELETAL: Extremities without clubbing, cyanosis, or edema. No joint tenderness, effusion, or edema noted. No calf tenderness. Negative Homans sign bilaterally. NEUROLOGICAL: Awake and alert. Motor and sensory grossly within normal limits. Five out of 5 muscle strength in all muscle groups. Normal speech. Laboratory Laboratory Tests Test 02/13/17 19:30 White Blood Count 5.7 Red Blood Count 4.62 Hemoglobin 11.3 Hematocrit 36.5 Mean Corpuscular Volume 79.0 Mean Corpuscular Hemoglobin 24.4 Mean Corpuscular Hemoglobin 30.9 Concent Red Cell Distribution Width 20.7 Platelet Count 221 Mean Platelet Volume 7.3 Neutrophils (%) (Auto) 51.6 Lymphocytes (%) (Auto) 39.9 Monocytes (%) (Auto) 5.7 Eosinophils (%) (Auto) 1.2 Basophils (%) (Auto) 1.6 Neutrophils # (Auto) 2.9 Lymphocytes # (Auto) 2.3 Monocytes # (Auto) 0.3 Eosinophils # (Auto) 0.1 Basophils # (Auto) 0.1 CBC Comment DIFF FINAL Differential Comment Sodium Level 145 Potassium Level 4.0 Chloride Level 110 Carbon Dioxide Level 25.2 Anion Gap 10 Blood Urea Nitrogen 7 Creatinine 0.71 Estimat Glomerular Filtration 117 Rate Random Glucose 90 Calcium Level 8.1 Total Bilirubin 0.5 Aspartate Amino Transf 106 (AST/SGOT) Alanine Aminotransferase 37 (ALT/SGPT) Alkaline Phosphatase 85 Total Protein 7.2 Albumin 3.5 Salicylates Level 3.2 Acetaminophen Level LESS THAN 2.0 Ethyl Alcohol Level 286 Result Diagram: 02/13/17192902/13/171929 Assessment and Plan Problem List: (1) Opiate overdose ICD Code: T40.601A Status: Acute (2) Alcohol intoxication ICD Code: F10.129 Status: Acute Assessment and Plan 51 year old male patient with a past medical history which includes ETOH abuse , GI bleed s/p cautery, HTN, COPD, Hepatitis B and C, cirrhosis, seizure from ETOH withdraw, chronic pain, herniate disk, sciatic nerve pain, TB. Presets to the ED under rose act after taking unknown amount of oxycodone 20mg tablets ( per place Rose act report 84 20 mg tablets of oxycodone were missing) along with half gallon of vodka. Overdose with oxycodone 20mg tablets along with vodka Toxic encephalopathy rose act, sitter at bedside and psychiatry consulted close monitoring and supportive care HTN monitor trend Consider clonidine 0.1 mg as needed ETOH abuse- with EtOH withdrawal WA protocol with thiamine and folic acid Seizure precautions and serial neuro checks patient counselled Hepatitis B and C- chronic recommend follow up with outpatient GI/telephone worker Discussed with ER provider, nursing and patient changed to full admit pt currently with tremors and withdrawing will start scheduled po ativan This note was transcribed by ra [Juliette Jones]. I, Dr. Heather Allan personally performed the history, physical exam, and medical decision making; and confirmed the accuracy of the information in the transcribed note. Authenticated by Dr. Heather Allan on 02/14/17 at 02:09. Problem Qualifiers (1) Opiate overdose: Qualified Code: T40.604A - Opiate overdose, undetermined intent, initial encounter (2) Alcohol intoxication: Qualified Code: F10.920 - Alcohol intoxication, uncomplicated Susy Jones February 14, 2017 01:25 Heather Allan MD February 14, 2017 01:30
[2017-02-14 02:16] LABS: AMPHETAMINE, URINE NEG (NEG); BARBITURATES, URINE NEG (NEG); COCAINE, URINE NEG (NEG)
[2017-02-14] MEDS: LORazepam 2 MG TAB PO SCH ×2 (02:28→05:31)
[2017-02-14] MEDS: SODIUM CHLORIDE 0.9% FLUSH 10 ML FLUSH IV FLUSH SCH ×2 (07:45→21:21)
[2017-02-14] MEDS: SUCRALFATE 1 GM TAB PO SCH ×4 (08:59→21:21)
[2017-02-14] MEDS: PANTOPRAZOLE SOD 40 MG DELAYED RELEASE TAB PO SCH (09:00)
[2017-02-14] MEDS: FOLIC ACID 1 MG TAB PO SCH (09:00)
[2017-02-14] MEDS: chlordiazePOXIDE 25 MG CAP PO SCH ×3 (09:00→18:16)
[2017-02-14] MEDS: THIAMINE HCL 100 MG TAB PO SCH (09:00)
[2017-02-14 10:34] LABS: AUTOMATED NEUTROPHIL # 3.1 TH/MM3 (1.8-7.7); BASOPHIL # 0.1 TH/MM3 (0-0.2); BASOPHIL % 1.2 % (0.0-2.0); EOSINOPHIL # 0.1 TH/MM3 (0-0.4); EOSINOPHIL % 1.9 % (0.0-4.0); HEMATOCRIT 35.3 % (39.0-51.0); HEMO FLAGS DIFF FINAL; LYMPH % 39.1 % (9.0-44.0); LYMPHOCYTE # 2.4 TH/MM3 (1.0-4.8); MEAN CELL VOLUME 78.9 FL (80.0-100.0); MEAN CORPUSCULAR HEMOGLOBIN 24.4 PG (27.0-34.0); MEAN CORPUSCULAR HGB CONC 30.9 % (32.0-36.0); MONO % 6.9 % (0.0-8.0); NEUT % 50.9 % (16.0-70.0); PLATELET COUNT 175 TH/MM3 (150-450); RED BLOOD COUNT 4.47 MIL/MM3 (4.50-5.90); RED CELL DISTRIBUTION WIDTH 20.1 % (11.6-17.2); WHITE BLOOD COUNT 6.2 TH/MM3 (4.0-11.0)
[2017-02-14 10:59] LABS: BICARBONATE 29.5 MEQ/L (21.0-32.0); POTASSIUM 3.6 MEQ/L (3.5-5.1)
[2017-02-14] MEDS: LORazepam 1 MG TAB PO PRN ×3 (13:31→23:36)
--- NOTE | 2017-02-14 14:20 | EKG ---
Date Performed: 02/13/2017 Time Performed: 19:29:03 PTAGE: 51 years EKG: Sinus rhythm NORMAL ECG Compared to prior tracing no significant change PREVIOUS TRACING : 01/11/2017 21.43 DOCTOR: Gerson Hernández Interpretating Date/Time 02/14/2017 14:19:13
--- NOTE | 2017-02-14 15:06 | PD.CONS ---
Provisional Diagnosis Admission Date February 14, 2017 at 01:29 [place] I. Substance induced mood disorder, alcohol and opiates use disorder [place] II. Deferred [place] III. Hepatitis C, hepatitis B, rheumatoid arthritis, lower back pain [place] IV. Extensive history of addiction to alcohol and opiates [place] V. 55 History of Present Illness Service Psychiatry Consult Requested By Primary Care Physician Maribell Chang MD HPI The patient is a 51-year-old man, domicile with his mother in [place], unemployed, single, without any previous psychiatric history, no previous psychiatric hospitalizations, no previous suicide attempts, extensive alcohol and opiates use disorder, previously Rose acted for these reasons, with medical history of GI bleed status post cauterization, hypertension, COPD, hepatitis B and C with cirrhosis, seizures from EtOH withdrawal, chronic pain herniated disc sciatic nerve pain and TB. Patient brought to the hospital, as per police and Rose act report. Patient reports he is in the hospital because , "I have a drinking problem and took too many of my pain medications." Patient 's mother found him called EMS- [facility] arrival patient was given Narcan. patient he took approximately 20 oxycodone 20 mg tablets along with half a gallon of vodka. Patient denies suicide attempt or intent. Review of police Rose act report there were 84 oxycodone 20 mg tablets missing from his prescription was filled 02/13/2017. Toxicology was positive for opiates, BAL was 286. On psychiatric evaluation today patient is calm, cooperative and pleasant. Patient states that he did not try to commit suicide, he says that he has an addiction to alcohol and opiates he was just trying to relax. He says that his opiates were recently increased by regular doctor and he might overdose by mistake. Patient denies depressive symptoms, he denies anhedonia, he denies hopelessness, he denies helplessness, he denies suicidal and homicidal ideation, he denies visual and auditory hallucinations. She is oriented 3, no attention deficit present, no gross cognitive impairment present. Patient says that he has been in multiple detox rehabs in the past for alcohol, but he usually relapse "because alcohol is my best way to cope with anxiety and my multiple problems". He does not think that rehabilitation program has been helpful in any way. He denies the use of marijuana, cocaine, heroine or other illicit drugs. Review of Systems Constitutional: DENIES: Diaphoretic episodes, Fatigue, Fever, Weight gain, Weight loss, Chills, Dizziness, Change in appetite, Night Sweats Endocrine: DENIES: Heat/cold intolerance, Polydipsia, Polyuria, Polyphagia Eyes: DENIES: Blurred vision, Diplopia, Eye inflammation, Eye pain, Vision loss , Photosensitivity, Double Vision Ears, nose, mouth, throat: DENIES: Tinnitus, Hearing loss, Vertigo, Nasal discharge, Oral lesions, Throat pain, Hoarseness, Ear Pain, Running Nose, Epistaxis, Sinus Pain, Toothache, Odynophagia Respiratory: DENIES: Apneas, Cough, Snoring, Wheezing, Hemoptysis, Sputum production, Shortness of breath Cardiovascular: DENIES: Chest pain, Palpitations, Syncope, Dyspnea on Exertion , PND, Lower Extremity Edema, Orthopnea, Claudication Gastrointestinal: DENIES: Abdominal pain, Black stools, Bloody stools, Constipation, Diarrhea, Nausea, Vomiting, Difficulty Swallowing, Anorexia Genitourinary: DENIES: Sexual dysfunction, Urinary frequency, Urinary incontinence, Urgency, Hematuria, Dysuria, Nocturia, Penile Discharge, Testicular Pain, Testicular Swelling Integumentary: DENIES: Abnormal pigmentation, Nail changes, Pruritus, Rash Hematologic/lymphatic: DENIES: Bruising, Lymphadenopathy Immunologic/allergic: DENIES: Eczema, Urticaria Neurologic: DENIES: Abnormal gait, Headache, Localized weakness, Paresthesias, Seizures, Speech Problems, Tremor, Poor Balance Psychiatric: DENIES: Anxiety, Confusion, Mood changes, Depression, Hallucinations, Agitation, Suicidal Ideation, Homicidal Ideation, Delusions Past Family Social History Coded Allergies: Prednisone (Verified Allergy, Severe, Rash, 01/11/17) *MDRO Multi-Drug Resistant Organism (Verified Adverse Reaction, Unknown, Cleared, 01/11/17) MRSA arm wound 2008 MRSA PCR Screen negative 01/06/15 and 05/30/15. Cleared by Infection Control. Active Scripts Albuterol 8.5 GM Inh (Proair Hfa 8.5 GM Inh)90 Mcg/Act Aer1 Puff INH Q4H PRN ( SHORTNESS OF BREATH) #1 INHALER Ref 2 108 mcg/actuation Prov:Maribell Chang MD 09/26/16 Reported Medications Pantoprazole (Protonix)40 Mg Tab40 Mg PO BID #30 TAB Ref 0 02/13/17 Morphine ER 15 Mg Tab15 Mg PO Q8H Ref 0 01/11/17 Oxycodone 15 Mg Tab15 Mg PO Q8HR Ref 0 01/11/17 Amlodipine 10 Mg Tab10 Mg PO DAILY #30 TAB Ref 0 10/07/16 Sucralfate 1 Gm Tab1 Gm PO QID #120 TAB Ref 0 on empty stomach 07/22/16 Current Medications Medications (Trade) Dose Ordered Sig/Karlos Route Start Time Stop Time Status Last Admin (NS Flush) 2 ml UNSCH PRN IVF 02/13/17 19:15 (NS Flush) 2 ml UNSCH PRN IV FLUSH 02/13/17 22:00 (NS Flush) 2 ml BID IV FLUSH 02/14/17 09:00 02/14/17 07:45 (Narcan Inj) 0.4 mg UNSCH PRN IV 02/13/17 22:00 (Folate) 1 mg DAILY PO 02/14/17 09:00 02/19/17 08:59 02/14/17 09:00 (Vitamin B1) 100 mg DAILY PO 02/14/17 09:00 02/14/17 09:00 (Protonix) 40 mg DAILY PO 02/14/17 09:00 02/14/17 09:00 (Romazicon Inj) 0.2 mg Q1M PRN IV PUSH 02/14/17 00:45 (Ativan) 1 mg Q4H PRN PO 02/14/17 00:45 02/14/17 13:31 (Ativan Inj) 1 mg Q4H PRN IV PUSH 02/14/17 00:45 (Ativan) 2 mg Q2H PRN PO 02/14/17 00:45 02/14/17 01:02 (Ativan Inj) 2 mg Q2H PRN IV PUSH 02/14/17 00:45 (Ativan Inj) 2 mg Q1H PRN IV PUSH 02/14/17 00:45 02/14/17 07:45 (Ativan Inj) 2 mg Q15M PRN IV PUSH 02/14/17 00:45 (Librium) 25 mg TID PO 02/14/17 09:00 02/14/17 12:56 (Norvasc) 10 mg DAILY PO 02/14/17 09:00 02/14/17 08:59 (Carafate) 1 gm QID PO 02/14/17 09:00 02/14/17 12:56 Family History Patient denies psychiatric family history Social History Patient was born and raised in [place], lives with his mother and poor [place], he is single, no kids, unemployed, supported by [employer], his highest level of education is 11th grade Patient's Strengths (min. 2) The support of his mother, verbal communication Physical Exam On physical exam, no agitation, no psychomotor retardation or hyperactivity, no tremors, no withdrawal, no EPS, no stiffness Vital Signs Vital Signs Date Time Temp Pulse Resp B/P Pulse Ox O2 Delivery O2 Flow Rate FiO2 02/14/17 11:30 97.3 84 19 144/92 97 02/13/17 22:39 Nasal Cannula 2 Lab Results Test 02/13/17 19:30 White Blood Count 5.7 Red Blood Count 4.62 Hemoglobin 11.3 Hematocrit 36.5 Mean Corpuscular Volume 79.0 Mean Corpuscular Hemoglobin 24.4 Mean Corpuscular Hemoglobin 30.9 Concent Red Cell Distribution Width 20.7 Platelet Count 221 Mean Platelet Volume 7.3 Neutrophils (%) (Auto) 51.6 Lymphocytes (%) (Auto) 39.9 Monocytes (%) (Auto) 5.7 Eosinophils (%) (Auto) 1.2 Basophils (%) (Auto) 1.6 Neutrophils # (Auto) 2.9 Lymphocytes # (Auto) 2.3 Monocytes # (Auto) 0.3 Eosinophils # (Auto) 0.1 Basophils # (Auto) 0.1 CBC Comment DIFF FINAL Differential Comment Sodium Level 145 Potassium Level 4.0 Chloride Level 110 Carbon Dioxide Level 25.2 Anion Gap 10 Blood Urea Nitrogen 7 Creatinine 0.71 Estimat Glomerular Filtration 117 Rate Random Glucose 90 Calcium Level 8.1 Total Bilirubin 0.5 Aspartate Amino Transf 106 (AST/SGOT) Alanine Aminotransferase 37 (ALT/SGPT) Alkaline Phosphatase 85 Total Protein 7.2 Albumin 3.5 Salicylates Level 3.2 Acetaminophen Level LESS THAN 2.0 Ethyl Alcohol Level 286 Result Diagram: 02/13/17192902/13/171929 Mental Status Examination Appearance man, long hair, age appearing, [facility], good hygiene, calm, Speech: Unremarkable Orientation: x3 Memory: Unremarkable Thought Process: Logical Thought Content: Unremarkable Language Fluent and spontaneous Fund of Knowledge Adequate for level of education Hallucination Type: None Attention and Concentration: Good Suicidal Ideation: No Previous Suicide Attempts: No Homicidal Ideation: No Previous Homicide Attempts: No Judgment: WNL Affect: Good Mood: Appropriate Motor Activity: Normal gait Assessment & Plan Problem List: (1) Alcohol abuse with alcohol-induced mood disorder Assessment & Plan: On psychiatric evaluation today the patient does not present any evidence of subjective or objective symptomatology of depression, denzel, psychosis. He denies suicidal and homicidal ideation, he denies visual and auditory hallucinations. Recent overdose with alcohol and opiates seems to be more related with poor impulse control and poor judgment secondary to an extensive and sustained/IV use of alcohol and opiates and not to a primary major psychiatric condition decompensation. Patient does not meet criteria for involuntary psychiatric admission at this moment. He would really benefit of a comprehensive inpatient rehabilitation program. However, patient declined this possibility. Extensive support, motivation psycho education provided. Continue CIWA. No additional psychotropics indicated at this moment. Rose act will be lifted. ICD Code: F10.14 Assessment & Plan Estimated LOS: Lucius Cifuentes MD February 14, 2017 15:06
[2017-02-14] MEDS ORDERED: NICOTINE 14 MG/24 HR PATCH T-DERMAL ONE (17:45)
[2017-02-15] VITALS: BP 136/89; PULSE 110; RESP 20; TEMP 95.1; O2SAT 97
[2017-02-15] MEDS ORDERED: MORPHINE SULFATE 4 MG/ML INJ IV PUSH ONE (03:15)
[2017-02-15 04:00] VITALS: BP 163/100; PULSE 100; PULSE 105; RESP 20; TEMP 97.6; O2SAT 100
[2017-02-15] MEDS: LORazepam 1 MG TAB PO PRN ×3 (04:37→13:28)
[2017-02-15 05:32] LABS: ANION GAP 6 MEQ/L (5-15); BICARBONATE 27.8 MEQ/L (21.0-32.0); BLOOD UREA NITROGEN 7 MG/DL (7-18); CHLORIDE 102 MEQ/L (98-107); GLOMERULAR FILTRATION RATE 154 ML/MIN (>89); MAGNESIUM 1.9 MG/DL (1.5-2.5); SODIUM (NA) 136 MEQ/L (136-145)
[2017-02-15 05:33] LABS: POTASSIUM 4.3 MEQ/L (3.5-5.1)
[2017-02-15 08:00] VITALS: BP 139/91; PULSE 103; PULSE 80; RESP 18; TEMP 97.9; O2SAT 98
[2017-02-15] MEDS: THIAMINE HCL 100 MG TAB PO SCH (09:48)
[2017-02-15] MEDS: chlordiazePOXIDE 25 MG CAP PO SCH ×2 (09:48→13:00)
[2017-02-15] MEDS: SUCRALFATE 1 GM TAB PO SCH ×2 (09:48→13:28)
[2017-02-15] MEDS: PANTOPRAZOLE SOD 40 MG DELAYED RELEASE TAB PO SCH (09:48)
[2017-02-15] MEDS: FOLIC ACID 1 MG TAB PO SCH (09:48)
[2017-02-15 12:00] VITALS: BP 119/81; PULSE 96; RESP 18; TEMP 97.1; O2SAT 98
[2017-02-15] MEDS ORDERED: CHLORDIAZEPOXIDE PO (15:45)
[2017-02-15] MEDS ORDERED: RESP: ALBUTEROL 0.63 MG/3 ML NEB (PRN) NEB (15:45)
--- NOTE | 2017-02-15 15:45 | HHI.PR ---
Subjective Remarks Follow-up for alcohol abuse. RN at bedside. The patient feels well at this time and he is asking to go home. He is ambulating in the room with no difficulties. He denies any chest pain, shortness of breath, nausea, vomiting. He states that tremors have resolved on Librium. He plans on staying away from alcohol because of his stomach ulcers and hepatitis. He is planning on going back to [facility] and . He denies any suicidal ideations. He states that yesterday he just drank too much alcohol and took 2 pain pills and went to sleep in a chair and his mother was concerned because he was difficult to arouse. He plans to follow up with his PCP, Dr. Chang. He does need prescriptions for his stomach ulcer and blood pressure. He verbalizes understanding that he cannot drink and be on Librium at the same time, and states that he wants to stay away from alcohol. Objective Vitals Vital Signs Date Time Temp Pulse Resp B/P Pulse Ox O2 Delivery O2 Flow Rate FiO2 02/15/17 12:00 97.1 96 18 119/81 98 02/15/17 08:00 97.9 103 18 139/91 98 02/15/17 08:00 80 02/15/17 04:00 97.6 105 20 163/100 100 02/15/17 04:00 97.6 100 20 163/100 100 02/15/17 00:00 95.1 110 20 136/89 97 02/14/17 21:15 83 02/14/17 20:00 97.3 90 20 160/98 96 163/95 02/14/17 16:08 96.4 82 19 151/91 97 I/O 02/14/17 02/14/17 02/14/17 02/15/17 02/15/17 02/15/17 07:00 15:00 23:00 07:00 15:00 23:00 Intake Total 480 ml Output Total 70 ml 2975 ml 800 ml Balance -70 ml -2495 ml -800 ml Intake Oral 480 ml Output Urine Total 70 ml 2975 ml 800 ml # Bowel Movements 0 0 Result Diagram: 02/14/17 0930 02/15/17 0430 Objective Remarks GENERAL: Well-developed well-nourished. In no acute distress. SKIN: Warm and dry. No lesions noted. HEENT: Normocephalic. Pupils equal and round. Mucous membranes pink and moist. CARDIOVASCULAR: Regular rate and rhythm. No murmur appreciated. RESPIRATORY: No accessory muscle use. Clear to auscultation. Breath sounds equal bilaterally. GASTROINTESTINAL: Abdomen soft, non-tender, nondistended. Bowel sounds x4. MUSCULOSKELETAL: No obvious deformities. No clubbing or cyanosis. No edema. NEUROLOGICAL: Awake and alert. No focal neurological deficits. Moves upper and lower extremities spontaneously. Normal speech. No tremors. PSYCHIATRIC: Sightly anxious mood and affect; insight and judgment normal. No SI. A/P Problem List: (1) Opiate overdose ICD Code: T40.601A Status: Acute (2) Alcohol intoxication ICD Code: F10.129 Status: Acute Assessment and Plan 51 year old male patient with a past medical history which includes ETOH abuse , GI bleed s/p cautery, HTN, COPD, Hepatitis B and C, cirrhosis, seizure from ETOH withdraw, chronic pain, herniate disk, sciatic nerve pain, TB. Presets to the ED under rose act after taking unknown amount of oxycodone 20mg tablets ( per place Rose act report 84 20 mg tablets of oxycodone were missing, although patient reports he only took 2) along with half gallon of vodka. Overdose with oxycodone 20mg tablets along with vodka Toxic encephalopathy, improved Patient was evaluated by psychiatry, rose act was lifted. 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
[2017-02-15] MEDS ORDERED: GNP100TA3 PO (15:51)
[2017-02-15] MEDS ORDERED: SUCR1TAB PO (15:51)
[2017-02-15] MEDS ORDERED: AMLO10TA2 PO (15:51)
[2017-02-15] MEDS ORDERED: PROT40TA PO (15:51)
[2017-02-15 16:00] VITALS: BP 116/82; PULSE 114; RESP 16; TEMP 97.9; O2SAT 98
--- NOTE | 2017-02-15 16:09 | EKG ---
Date Performed: 02/15/2017 Time Performed: 03:34:00 PTAGE: 51 years EKG: Sinus tachycardia Normal ECG except for rate Since PREVIOUS TRACING 02/13/2017, no significant change. PREVIOUS TRACIN02/13/2017 DOCTOR: Gordo Reese Interpretating Date/Time 02/15/2017 16:08:04
--- NOTE | 2017-02-15 16:10 | EKG ---
Date Performed: 02/15/2017 Time Performed: 09:38:59 PTAGE: 51 years EKG: SINUS TACHYCARDIA WITH SHORT UT INTERVAL ABNORMAL RHYTHM ECG Since PREVIOUS TRACING 02/15/2017, UT interval is slightly shorter, otherwise no significant c debrae. PREVIOUS TRACIN02/15/2017 03.34 DOCTOR: Gordo Reese Interpretating Date/Time 02/15/2017 16:08:42
== END 2017-02-15 16:30 | disposition home or self-care (01) | DRG 917 ==
LOC: NEPC 18:54 → NEDA 21:46 → NEPGCP 23:02 → OBSVTOIN 02-14 01:29 → N05B 02-14 09:40
PROVIDERS: ADMIT Internal Medicine; ATTEND Internal Medicine
DX: T40.2X1A Poisoning by other opioids, accidental (unintentional), initial encounter (principal); G92 Toxic encephalopathy; B19.10 Unspecified viral hepatitis B without hepatic coma; K74.60 Unspecified cirrhosis of liver; J44.9 Chronic obstructive pulmonary disease, unspecified; F10.24 Alcohol dependence with alcohol-induced mood disorder; F10.239 Alcohol dependence with withdrawal, unspecified; T51.0X1A Toxic effect of ethanol, accidental (unintentional), initial encounter; K27.7 Chronic peptic ulcer, site unspecified, without hemorrhage or perforation; Y90.8 Blood alcohol level of 240 mg/100 ml or more; Z72.0 Tobacco use; Z86.14 Personal history of Methicillin resistant Staphylococcus aureus infection; R47.81 Slurred speech; B19.20 Unspecified viral hepatitis C without hepatic coma; M06.9 Rheumatoid arthritis, unspecified; F11.24 Opioid dependence with opioid-induced mood disorder; I10 Essential (primary) hypertension; G89.29 Other chronic pain; Z86.11 Personal history of tuberculosis; F41.9 Anxiety disorder, unspecified; Y92.008 Other place in unspecified non-institutional (private) residence as the place of occurrence of the external cause; K21.9 Gastro-esophageal reflux disease without esophagitis; F32.9 Major depressive disorder, single episode, unspecified
CPT/HCPCS: 80048; 80053; 80307; 83735; 84484; 85025; 90471; 90714; 93005; 96365; G0378; J2060; J2270; J3411; J7030

== ENCOUNTER 2017-02-24 11:52 | Inpatient (IN) | payer SELFPAY ==
[~2017-02-24] VITALS: Ht 198.1 cm; Wt 95.0 kg
[~2017-02-24 11:52] MED LIST changes: +CHLORDIAZEPOXIDE PO; +GNP100TA3 PO; -MORP1TAB24 PO; -PANT40TA3 PO; +PROT40TA PO
[2017-02-24 11:54] VITALS: BP 177/107; PULSE 102; RESP 16; TEMP 98.1; O2SAT 98
--- NOTE | 2017-02-24 12:06 | PD ---
Physical Exam Time Seen by Provider: 12:04 Narrative 51 y/o male here for evaluation of n/v for 1 day, some hematemesis, abdominal pain. Believes it may be pancreatitis. Vital signs reviewed. Seen at triage desk. Awaiting bed placement. Data Data Last Documented VS Vital Signs Date Time Temp Pulse Resp B/P Pulse Ox O2 Delivery O2 Flow Rate FiO2 02/24/17 11:54 98.1 102 16 177/107 98 MDM Medical Record Reviewed: Yes Supervised Visit with APOLLO: No José Miguel De Jesus Feb 24, 2017 12:06
[2017-02-24 13:03] LABS: AUTOMATED NEUTROPHIL # 4.2 TH/MM3 (1.8-7.7); BASOPHIL % 0.7 % (0.0-2.0); EOSINOPHIL # 0.1 TH/MM3 (0-0.4); EOSINOPHIL % 0.9 % (0.0-4.0); HEMO FLAGS DIFF FINAL; LYMPH % 24.1 % (9.0-44.0); LYMPHOCYTE # 1.6 TH/MM3 (1.0-4.8); MEAN CELL VOLUME 80.3 FL (80.0-100.0); MEAN CORPUSCULAR HGB CONC 31.2 % (32.0-36.0); MONO % 10.8 % (0.0-8.0); NEUT % 63.5 % (16.0-70.0); PLATELET COUNT 156 TH/MM3 (150-450); RED BLOOD COUNT 4.86 MIL/MM3 (4.50-5.90); RED CELL DISTRIBUTION WIDTH 21.8 % (11.6-17.2); WHITE BLOOD COUNT 6.6 TH/MM3 (4.0-11.0)
[2017-02-24 13:33] LABS: ANION GAP 10 MEQ/L (5-15); AST (GOT) 95 U/L (15-37); BICARBONATE 25.9 MEQ/L (21.0-32.0); BLOOD UREA NITROGEN 7 MG/DL (7-18); CHLORIDE 101 MEQ/L (98-107); GLOMERULAR FILTRATION RATE 132 ML/MIN (>89); POTASSIUM 3.9 MEQ/L (3.5-5.1); SODIUM (NA) 137 MEQ/L (136-145)
[2017-02-24 13:34] LABS: ALT (GPT) 35 U/L (12-78)
[2017-02-24 13:37] LABS: ALKALINE PHOSPHATASE 107 U/L (45-117); TOTAL BILIRUBIN ADULT 0.8 MG/DL (0.2-1.0)
[2017-02-24 13:48] LABS: BLOOD, URINE NEG (NEG); COMMENT (UR) CULT NOT INDICATED; CULTURE IF INDICATED CULT NOT INDICATED; GLUCOSE,URINE NEG (NEG); KETONE, URINE TRACE mg/dL (NEG); MUCUS URINE FEW /lpf (OCC); NITRITE,URINE NEG (NEG); PH, URINE 6.5 (5.0-8.5); SQUAMOUS EPITHELIAL CELL URINE <1 /hpf (0-5); URINE COLOR YELLOW (YELLW/STRAW)
[2017-02-24] MEDS: PANTOPRAZOLE INJ 80 MG in SODIUM CHLORIDE 0.9% INJ 100 ML IV SCH (15:30)
[2017-02-24] MEDS ORDERED: PANTOPRAZOLE INJ 80 MG in SODIUM CHLORIDE 0.9% INJ 35 ML IV ONE (15:30)
[2017-02-24] MEDS ORDERED: OCTREOTIDE INJ 50 MCG/ML AMP IV ONE (15:30)
[2017-02-24] MEDS ORDERED: LORazepam 2 MG/ML VIAL IV PUSH ONE (15:30)
[2017-02-24 15:40] VITALS: BP 142/99; PULSE 100; RESP 20; O2SAT 97
[2017-02-24 16:24] LABS: APTT (PATIENT) 22.2 SEC (24.3-30.1); PROTHROMBIN TIME - PATIENT 10.9 SEC (9.8-11.6)
[2017-02-24] MEDS ORDERED: NALOXONE HCL 0.4 MG/ML AMP IV PRN (16:45)
[2017-02-24] MEDS ORDERED: MAGNESIUM HYDROXIDE SUSP 30 ML CUP PO PRN (16:45)
[2017-02-24] MEDS ORDERED: LORazepam 2 MG/ML VIAL IV PUSH PRN ×3 (16:45)
[2017-02-24] MEDS ORDERED: LORazepam 1 MG TAB PO PRN (16:45)
[2017-02-24] MEDS ORDERED: FLUMAZENIL 0.5 MG/5 ML VIAL IV PUSH PRN (16:45)
[2017-02-24] MEDS ORDERED: ACETAMINOPHEN 325 MG TAB PO PRN (16:45)
[2017-02-24] MEDS ORDERED: LORazepam 2 MG TAB PO PRN (16:45)
--- NOTE | 2017-02-24 16:45 | PD ---
HPI Chief Complaint: GI Complaint Time Seen by Provider: 15:11 Travel History International Travel<30 days: No Contact w/Intl Traveler<30days: No Traveled to known affect area: No History of Present Illness HPI This is a 51-year-old male with a history of alcoholism, cirrhosis and prior bleeding duodenal ulcer who presents to the emergency department with 1 week of intermittent epigastric discomfort associated with loose stools having vomited blood earlier today, moderate severity, persisting here in the emergency department with no associated lightheadedness or dizziness. He says he vomited blood all over the toilet. It was bright red and pink in color. He denies any black stools. He also has been having loose stools. He denies any fevers or chills. He says he stopped drinking alcohol 5 days ago because he wanted to quit. He was admitted last fall and was found on endoscopy to have a bleeding duodenal ulcer. PFSH Past Medical History Hx Anticoagulant Therapy: No Arthritis: Yes (RA) Asthma: No Blood Disorders: Yes (HEPATITIS B AND C NO TREATMENT) Anxiety: Yes Depression: Yes Heart Rhythm Problems: No Cancer: No Cardiovascular Problems: Yes High Cholesterol: No Chemotherapy: No Chest Pain: Yes (PALPITATIONS) Congestive Heart Failure: No Cirrhosis: Yes COPD: Yes Cerebrovascular Accident: No Diabetes: No Diminished Hearing: No Endocrine: No Gastrointestinal Disorders: Yes (PANCREATITIS) GERD: Yes Genitourinary: No Headaches: Yes Hepatitis: Yes (B & C) Hiatal Hernia: No Heparin Induced Thrombocytopen: No Herniated Disk: Yes Hypertension: Yes Immune Disorder: No Implanted Vascular Access Dvce: Yes Insomnia: Yes Kidney Stones: No Musculoskeletal: Yes (CHRONIC BACK PAIN) Neurologic: Yes Psychiatric: Yes Reproductive: No Respiratory: Yes Integumentary: Yes (HX IV DRUG USE) Immunizations Current: Yes Migraines: Yes Pancreatitis: Yes Pneumonia: Yes Radiation Therapy: No Renal Failure: No Seizures: No Sickle Cell Disease: No Sleep Apnea: No Thyroid Disease: No Ulcer: Yes Tetanus Vaccination: < 5 Years PNEUMOCCOCAL Vaccine (Year): 2 Past Surgical History Abdominal Surgery: Yes (LIVER BIOPSY) AICD: No Arteriovenous Shunt: No Body Medical Devices: STEEL PLATE IN RIGHT ANKLE Cardiac Surgery: No Ear Surgery: No Endocrine Surgery: Yes (LIVER BIOPSY) Eye Surgery: No Genitourinary Surgery: No Gynecologic Surgery: No Hysterectomy: No Insulin Pump: No Joint Replacement: No Neurologic Surgery: No Oral Surgery: No Pacemaker: No Thoracic Surgery: Yes (CHEST TUBE- R/O TB 2009) Tonsillectomy: Yes Other Surgery: Yes (RIGHT ANKLE PLATE/SCREWS) Social History Alcohol Use: Yes (3 days ago) Tobacco Use: Yes (1/2 PPD) Substance Use: Yes Allergies-Medications (Allergen,Severity, Reaction): Coded Allergies: Prednisone (Verified Allergy, Severe, Rash, 02/24/17) *MDRO Multi-Drug Resistant Organism (Verified Adverse Reaction, Unknown, Cleared, 02/24/17) MRSA arm wound 2008 MRSA PCR Screen negative 01/06/15 and 05/30/15. Cleared by Infection Control. Reported Meds & Prescriptions Reported Meds & Active Scripts Active Gnp Vitamin B-1 (Thiamine HCl) 100 Mg Tab 100 Mg PO DAILY Protonix (Pantoprazole Sodium) 40 Mg Tab 40 Mg PO BID Amlodipine (Amlodipine Besylate) 10 Mg Tab 10 Mg PO DAILY Sucralfate 1 Gm Tab 1 Gm PO QID on empty stomach [chlordiazePOXIDE] 25 MG Cap 25 Mg PO TID Take THREE Times daily for 3 Days, then TWICE daily for 3 days, then ONCE a day for 3 Days. Proair Hfa 8.5 GM Inh (Albuterol Sulfate) 90 Mcg/Act Aer 1 Puff INH Q4H PRN 108 mcg/actuation Reported Oxycodone (Oxycodone HCl) 15 Mg Tab 15 Mg PO Q8HR Review of Systems Except as stated in HPI: all other systems reviewed are Neg Physical Exam Narrative GENERAL:Well appearing, no acute distress, tremulous SKIN: Focused skin assessment warm and dry. HEAD: Atraumatic. Normocephalic. EYES: Pupils equal and round. No injection or drainage. ENT: Moist mucous membranes NECK: Trachea midline. CARDIOVASCULAR: Regular rate and rhythm. No murmur appreciated. RESPIRATORY: Clear to auscultation. Breath sounds equal bilaterally. GASTROINTESTINAL: Abdomen soft, mildly tender to palpation in the epigastrium with no rebound or guarding. MUSCULOSKELETAL: No obvious deformities. NEUROLOGICAL: Awake and alert. No obvious cranial nerve deficits. Moving all extremities. PSYCHIATRIC: Appropriate mood and affect; insight and judgment normal. Data Data Last Documented VS Vital Signs Date Time Temp Pulse Resp B/P Pulse Ox O2 Delivery O2 Flow Rate FiO2 02/24/17 14:45 98 Room Air 02/24/17 11:54 98.1 102 16 177/107 Orders Complete Blood Count With Diff (02/24/17 12:07) Comprehensive Metabolic Panel (02/24/17 12:07) Urinalysis - C+S If Indicated (02/24/17 12:07) Iv Access Insert/Monitor (02/24/17 12:07) Oxygen Administration (02/24/17 12:07) Oximetry (02/24/17 12:07) Lipase (02/24/17 12:07) Prothrombin Time / Inr (Pt) (02/24/17 15:22) Act Partial Throm Time (Ptt) (02/24/17 15:22) Type And Screen (02/24/17 15:22) Pantoprazole Inj (Protonix Inj) (02/24/17 15:30) Pantoprazole Inj (Protonix Inj) (02/24/17 15:30) Octreotide Inj (Sandostatin Inj) (02/24/17 15:30) Octreotide Inj (Sandostatin Inj) (02/24/17 17:30) Lorazepam Inj (Ativan Inj) (02/24/17 15:30) Admit Order (Ed Use Only) (02/24/17 16:37) Labs Laboratory Tests Test 02/24/17 02/24/17 02/24/17 12:35 13:25 16:00 White Blood Count 6.6 TH/MM3 Red Blood Count 4.86 MIL/MM3 Hemoglobin 12.2 GM/DL Hematocrit 39.0 % Mean Corpuscular Volume 80.3 FL Mean Corpuscular Hemoglobin 25.0 PG Mean Corpuscular Hemoglobin 31.2 % Concent Red Cell Distribution Width 21.8 % Platelet Count 156 TH/MM3 Mean Platelet Volume 7.1 FL Neutrophils (%) (Auto) 63.5 % Lymphocytes (%) (Auto) 24.1 % Monocytes (%) (Auto) 10.8 % Eosinophils (%) (Auto) 0.9 % Basophils (%) (Auto) 0.7 % Neutrophils # (Auto) 4.2 TH/MM3 Lymphocytes # (Auto) 1.6 TH/MM3 Monocytes # (Auto) 0.7 TH/MM3 Eosinophils # (Auto) 0.1 TH/MM3 Basophils # (Auto) 0.0 TH/MM3 CBC Comment DIFF FINAL Differential Comment Sodium Level 137 MEQ/L Potassium Level 3.9 MEQ/L Chloride Level 101 MEQ/L Carbon Dioxide Level 25.9 MEQ/L Anion Gap 10 MEQ/L Blood Urea Nitrogen 7 MG/DL Creatinine 0.64 MG/DL Estimat Glomerular Filtration 132 ML/MIN Rate Random Glucose 119 MG/DL Calcium Level 8.9 MG/DL Total Bilirubin 0.8 MG/DL Aspartate Amino Transf 95 U/L (AST/SGOT) Alanine Aminotransferase 35 U/L (ALT/SGPT) Alkaline Phosphatase 107 U/L Total Protein 7.8 GM/DL Albumin 3.7 GM/DL Lipase 138 U/L Urine Color YELLOW Urine Turbidity CLEAR Urine pH 6.5 Urine Specific [place] 1.016 Urine Protein TRACE mg/dL Urine Glucose (UA) NEG mg/dL Urine Ketones TRACE mg/dL Urine Occult Blood NEG Urine Nitrite NEG Urine Bilirubin NEG Urine Urobilinogen 2.0 MG/DL Urine Leukocyte Esterase NEG Urine RBC LESS THAN 1 /hpf Urine WBC LESS THAN 1 /hpf Urine Squamous Epithelial <1 /hpf Cells Urine Mucus FEW /lpf Microscopic Urinalysis Comment CULT NOT INDICATED Prothrombin Time 10.9 SEC Prothromb Time International 1.0 RATIO Ratio Activated Partial 22.2 SEC Thromboplast Time Blood Type O POSITIVE MDM Medical Decision Making Medical Screen Exam Complete: Yes Emergency Medical Condition: Yes Interpretation(s) No leukocytosis Hemoglobin is 12.2 Electrolytes are reassuring Lipase is normal Urinalysis: No infection Differential Diagnosis Gastritis, ulcer, variceal bleed, anemia Narrative Course This is a 51-year-old male who presents to the emergency department with a history of alcoholism and cirrhosis with abdominal discomfort, loose stools and vomiting blood. He has a history of a duodenal ulcer in the past. Patient was placed on a monitor and an IV was established. Labs are obtained which are reassuring. He was started on pantoprazole and octreotide. He was also given Ativan for alcohol withdrawal. I think patient requires admission given his history for GI consultation. [facility] Point of Care Internal Pos. & Neg. Controls: Passed Fecal Specimen Occult Blood: Positive Physician Communication Physician Communication Discussed with Dr. Horvath Diagnosis Primary Impression: Upper GI bleed Admitting Information Admitting Physician Requests: Observation Adenike Henderson MD Feb 24, 2017 16:45
[2017-02-24] MEDS: SODIUM CHLOR 0.9% 1000 ML INJ 1,000 ML IV SCH (18:33)
--- NOTE | 2017-02-24 18:48 | HHI.HP ---
[facility] Maribell Chang MD Admission Diagnosis upper gi bleed Diagnoses: (1) Upper GI bleed (2) Alcohol withdrawal Chief Complaint: Hematemesis Travel History International Travel<30 Days: No Contact w/Intl Traveler <30 Da: No Traveled to Known Affected Are: No History of Present Illness 51-year-old male patient with past medical history which includes EtOH abuse, GI bleed status post cauterization, hypertension, COPD, hepatitis B and C with cirrhosis, seizures from EtOH withdrawal presented to the ED for evaluation of an acute onset of bright red emesis in the toilet bowl and one week history of intermittent epigastric discomfort for associated with loose black blood. Patient reported worsening lightheadedness as well as dizziness. He states over the past 5 days he hasn't had any drink. He denies any febrile episode Review of Systems Except as stated in HPI: all other systems reviewed are Neg Past Family Social History Past Medical History Rheumatoid arthritis Hepatitis B Hepatitis C Anxiety/depression Cirrhosis of the liver COPD Chronic pancreatitis GERD Hypertension Past Surgical History Liver biopsy Right ankle surgery Reported Medications Gnp Vitamin B-1 (Thiamine HCl) 100 Mg Tab 100 Mg PO DAILY Protonix (Pantoprazole Sodium) 40 Mg Tab 40 Mg PO BID Amlodipine (Amlodipine Besylate) 10 Mg Tab 10 Mg PO DAILY Sucralfate 1 Gm Tab 1 Gm PO QID on empty stomach [chlordiazePOXIDE] 25 MG Cap 25 Mg PO TID Take THREE Times daily for 3 Days, then TWICE daily for 3 days, then ONCE a day for 3 Days. Proair Hfa 8.5 GM Inh (Albuterol Sulfate) 90 Mcg/Act Aer 1 Puff INH Q4H PRN 108 mcg/actuation Reported Oxycodone (Oxycodone HCl) 15 Mg Tab 15 Mg PO Q8HR Allergies: Coded Allergies: Prednisone (Verified Allergy, Severe, Rash, 02/24/17) *MDRO Multi-Drug Resistant Organism (Verified Adverse Reaction, Unknown, Cleared, 02/24/17) MRSA arm wound 2008 MRSA PCR Screen negative 01/06/15 and 05/30/15. Cleared by Infection Control. Family History COPD Heart disease Social History He states that he is trying to quit smoking and trying to quit drinking alcohol. He has reported drinking up to a half gallon of vodka daily previously. Smokes about half a pack per day. Denies recent IV drug abuse. States that he last used illicit drugs 10 years ago Physical Exam Vital Signs Vital Signs Date Time Temp Pulse Resp B/P Pulse Ox O2 Delivery O2 Flow Rate FiO2 02/24/17 15:40 100 20 142/99 97 02/24/17 14:45 98 Room Air 02/24/17 11:54 98.1 102 16 177/107 98 Physical Exam GENERAL: This is a well-nourished, well-developed patient, in no apparent distress. SKIN: No rashes, ecchymoses or lesions. Cool and dry. HEAD: Atraumatic. Normocephalic. No temporal or scalp tenderness. EYES: Pupils equal round and reactive. Extraocular motions intact. No scleral icterus. No injection or drainage. ENT: Nose without bleeding, purulent drainage or septal hematoma. Throat without erythema, tonsillar hypertrophy or exudate. Uvula midline. Airway patent. NECK: Trachea midline. No JVD or lymphadenopathy. Supple, nontender, no meningeal signs. CARDIOVASCULAR: Regular rate and rhythm without murmurs, gallops, or rubs. RESPIRATORY: Clear to auscultation. Breath sounds equal bilaterally. No wheezes , rales, or rhonchi. GASTROINTESTINAL: Abdomen soft, non-tender, nondistended. No hepato-splenomegaly , or palpable masses. No guarding. MUSCULOSKELETAL: Extremities without clubbing, cyanosis, or edema. No joint tenderness, effusion, or edema noted. No calf tenderness. Negative Homans sign bilaterally. NEUROLOGICAL: Awake and alert. Cranial nerves II through XII intact. Motor and sensory grossly within normal limits. Five out of 5 muscle strength in all muscle groups. Normal speech. Laboratory Laboratory Tests Test 02/24/17 02/24/17 02/24/17 12:35 13:25 16:00 White Blood Count 6.6 Red Blood Count 4.86 Hemoglobin 12.2 Hematocrit 39.0 Mean Corpuscular Volume 80.3 Mean Corpuscular Hemoglobin 25.0 Mean Corpuscular Hemoglobin 31.2 Concent Red Cell Distribution Width 21.8 Platelet Count 156 Mean Platelet Volume 7.1 Neutrophils (%) (Auto) 63.5 Lymphocytes (%) (Auto) 24.1 Monocytes (%) (Auto) 10.8 Eosinophils (%) (Auto) 0.9 Basophils (%) (Auto) 0.7 Neutrophils # (Auto) 4.2 Lymphocytes # (Auto) 1.6 Monocytes # (Auto) 0.7 Eosinophils # (Auto) 0.1 Basophils # (Auto) 0.0 CBC Comment DIFF FINAL Differential Comment Sodium Level 137 Potassium Level 3.9 Chloride Level 101 Carbon Dioxide Level 25.9 Anion Gap 10 Blood Urea Nitrogen 7 Creatinine 0.64 Estimat Glomerular Filtration 132 Rate Random Glucose 119 Calcium Level 8.9 Total Bilirubin 0.8 Aspartate Amino Transf 95 (AST/SGOT) Alanine Aminotransferase 35 (ALT/SGPT) Alkaline Phosphatase 107 Total Protein 7.8 Albumin 3.7 Lipase 138 Urine Color YELLOW Urine Turbidity CLEAR Urine pH 6.5 Urine Specific [place] 1.016 Urine Protein TRACE Urine Glucose (UA) NEG Urine Ketones TRACE Urine Occult Blood NEG Urine Nitrite NEG Urine Bilirubin NEG Urine Urobilinogen 2.0 Urine Leukocyte Esterase NEG Urine RBC LESS THAN 1 Urine WBC LESS THAN 1 Urine Squamous Epithelial <1 Cells Urine Mucus FEW Microscopic Urinalysis Comment CULT NOT INDICATED Prothrombin Time 10.9 Prothromb Time International 1.0 Ratio Activated Partial 22.2 Thromboplast Time Blood Type O POSITIVE Antibody Screen NEGATIVE Result Diagram: 02/24/17 1235 02/24/17 1235 Assessment and Plan Problem List: (1) Upper GI bleed ICD Code: K92.2 Status: Acute (2) Alcoholism ICD Code: F10.20 Status: Acute (3) Alcohol withdrawal ICD Code: F10.239 Status: Acute Assessment and Plan 51-year-old man with Upper GI bleed suspected Start Protonix and octreotide drips Gastroenterology consultation pending for evaluation for panendoscopy Serial H&H monitoring Hypertension Resume Norvasc and start Clonidine 0.1 mg every 6H as needed ETOH abuse- with EtOH withdrawal Librium protocol, CIWA protocol with thiamine and folic acid Seizure precautions and serial neuro checks patient counselled Hepatitis B and C- chronic recommend follow up with outpatient GI/trainer GI prophylaxis: PPI Code Status Full code Discussed Condition With Patient, ED physician Physician Certification 2 Midnight Certification Type: Admission for Inpatient Services Order for Inpatient Services The services are ordered in accordance with Medicare regulations or non- Medicare payer requirements, as applicable. In the case of services not specified as inpatient-only, they are appropriately provided as inpatient services in accordance with the 2-midnight benchmark. Estimated LOS (days): 2 days is the estimated time the patient will need to remain in the hospital, assuming treatment plan goals are met and no additional complications. Post-Hospital Plan: Not yet determined Larry Horvath MD Feb 24, 2017 18:48
[2017-02-24 19:42] VITALS: BP 150/74
[2017-02-24 20:00] VITALS: BP 143/104; PULSE 81; RESP 20; TEMP 98; O2SAT 97
[2017-02-24] MEDS ORDERED: cloNIDine HCL 0.1 MG TAB PO PRN (20:45)
[2017-02-24] MEDS: SODIUM CHLORIDE 0.9% FLUSH 10 ML FLUSH IV FLUSH SCH (22:58)
[2017-02-24] MEDS: OCTREOTIDE INJ 500 MCG in SODIUM CHLORID 0.9% 500 ML INJ 499.5 ML IV SCH (23:01)
[2017-02-24 23:54] LABS: HEMATOCRIT 40.9 % (39.0-51.0); REVIEW FLAG FINAL
[2017-02-25] VITALS (7 sets, daily range): BP systolic 115–148; BP diastolic 76–98; PULSE 74–86; RESP 18–24; TEMP 96.8–98.8; O2SAT 96–100
[2017-02-25] MEDS: PANTOPRAZOLE INJ 80 MG in SODIUM CHLORIDE 0.9% INJ 100 ML IV SCH ×2 (04:59→19:48)
[2017-02-25] MEDS: SODIUM CHLORIDE 0.9% FLUSH 10 ML FLUSH IV FLUSH PRN ×2 (04:59→05:42)
[2017-02-25] MEDS: SODIUM CHLOR 0.9% 1000 ML INJ 1,000 ML IV SCH ×2 (05:00→19:56)
[2017-02-25] MEDS: ONDANSETRON HCL 4 MG/2 ML VIAL IVP PRN ×3 (05:43→20:20)
[2017-02-25] MEDS: THIAMINE HCL 100 MG TAB PO SCH (08:53)
[2017-02-25] MEDS: FOLIC ACID 1 MG TAB PO SCH (08:53)
[2017-02-25] MEDS: SODIUM CHLORIDE 0.9% FLUSH 10 ML FLUSH IV FLUSH SCH ×2 (08:54→19:58)
[2017-02-25] MEDS: LORazepam 2 MG/ML VIAL IV PUSH PRN ×4 (09:02→21:35)
[2017-02-25 10:38] LABS: HEMATOCRIT 37.1 % (39.0-51.0); REVIEW FLAG FINAL
[2017-02-25 11:05] LABS: AUTOMATED NEUTROPHIL # 2.1 TH/MM3 (1.8-7.7); BASOPHIL % 1.4 % (0.0-2.0); EOSINOPHIL # 0.1 TH/MM3 (0-0.4); EOSINOPHIL % 2.1 % (0.0-4.0); HEMATOCRIT 37.1 % (39.0-51.0); HEMO FLAGS DIFF FINAL; LYMPH % 28.8 % (9.0-44.0); MEAN CELL VOLUME 79.7 FL (80.0-100.0); MEAN CORPUSCULAR HEMOGLOBIN 25.1 PG (27.0-34.0); MEAN CORPUSCULAR HGB CONC 31.5 % (32.0-36.0); MONO % 10.5 % (0.0-8.0); NEUT % 57.2 % (16.0-70.0); PLATELET COUNT 136 TH/MM3 (150-450); RED CELL DISTRIBUTION WIDTH 20.1 % (11.6-17.2); WHITE BLOOD COUNT 3.6 TH/MM3 (4.0-11.0)
[2017-02-25 12:29] LABS: ALT (GPT) 35 U/L (12-78); ANION GAP 12 MEQ/L (5-15); AST (GOT) 121 U/L (15-37); BLOOD UREA NITROGEN 6 MG/DL (7-18); CHLORIDE 101 MEQ/L (98-107); GLOMERULAR FILTRATION RATE 160 ML/MIN (>89); POTASSIUM 3.6 MEQ/L (3.5-5.1); SODIUM (NA) 139 MEQ/L (136-145)
[2017-02-25 12:32] LABS: ALKALINE PHOSPHATASE 95 U/L (45-117); TOTAL BILIRUBIN ADULT 1.5 MG/DL (0.2-1.0)
--- NOTE | 2017-02-25 13:29 | HHI.PR ---
Subjective Remarks Follow GI bleed, and etoh abuse. Patient seen and examined. Denies any further hematemesis or nausea. States he is hungry and is in pain. He does have chronic pain due to rheumatoid arthritis. He states he did not sleep well last night because of the pain. Denies any chest pain, sob, fever or chills. No tremors noted. Objective Vitals Vital Signs Date Time Temp Pulse Resp B/P Pulse Ox O2 Delivery O2 Flow Rate FiO2 02/25/17 12:00 98.0 81 18 137/77 100 02/25/17 08:30 98.0 86 18 128/91 98 02/25/17 07:26 97.3 85 18 135/89 97 02/25/17 04:31 97.7 86 20 148/98 98 02/25/17 00:12 96.8 86 24 146/95 96 02/24/17 20:00 98.0 81 20 143/104 97 02/24/17 19:42 67 20 150/74 99 02/24/17 15:40 100 20 142/99 97 02/24/17 14:45 98 Room Air I/O 02/24/17 02/24/17 02/24/17 02/25/17 02/25/17 02/25/17 07:00 15:00 23:00 07:00 15:00 23:00 Output Total 400 ml 450 ml Balance -400 ml -450 ml Output Urine Total 400 ml 450 ml # Bowel Movements 0 0 Result Diagram: 02/25/17 1031 02/25/17 1202 Objective Remarks GENERAL: Well nourished pt in NAD SKIN: Warm and dry. HEAD: Atraumatic. Normocephalic. EYES: Pupils equal and round. No scleral icterus. No injection or drainage. ENT: No nasal bleeding or discharge. Mucous membranes pink and moist. NECK: Trachea midline. No JVD. CARDIOVASCULAR: Regular rate and rhythm. RESPIRATORY: No accessory muscle use. Clear to auscultation. Breath sounds equal bilaterally. GASTROINTESTINAL: Abdomen soft, non-tender, nondistended. Hepatic and splenic margins not palpable. MUSCULOSKELETAL: Extremities without clubbing, cyanosis, or edema. No obvious deformities. NEUROLOGICAL: Awake and alert. No obvious cranial nerve deficits. Motor grossly within normal limits. Five out of 5 muscle strength in the arms and legs. Normal speech. PSYCHIATRIC: Appropriate mood and affect; insight and judgment normal. Medications and IVs Current Medications Medications (Trade) Dose Ordered Sig/Karlos Route Start Time Stop Time Status Last Admin Pantoprazole Sodium 80 mg/ Sodium Chloride 100 ml @ 10 mls/hr Q10H IV 02/24/17 15:30 02/25/17 04:59 Octreotide Acetate 500 mcg/ Sodium Chloride 500.0 ml @ 25 mls/hr Q20H IV 02/24/17 17:30 02/24/17 23:01 (NS 1000 ml Inj) 1,000 ml @ 100 mls/hr Q10H IV 02/24/17 17:00 02/25/17 05:00 (NS Flush) 2 ml UNSCH PRN IV FLUSH 02/24/17 16:45 02/25/17 05:42 (NS Flush) 2 ml BID IV FLUSH 02/24/17 21:00 02/24/17 22:58 (Tylenol) 650 mg Q4H PRN PO 02/24/17 16:45 (Zofran Inj) 4 mg Q6H PRN IVP 02/24/17 16:45 02/25/17 13:01 (Narcan Inj) 0.4 mg UNSCH PRN IV 02/24/17 16:45 (Milk Of Magnesia Liq) 30 ml Q12H PRN PO 02/24/17 16:45 (Romazicon Inj) 0.2 mg Q1M PRN IV PUSH 02/24/17 16:45 (Ativan) 1 mg Q4H PRN PO 02/24/17 16:45 02/25/17 04:59 (Ativan Inj) 1 mg Q4H PRN IV PUSH 02/24/17 16:45 02/25/17 12:55 (Ativan) 2 mg Q2H PRN PO 02/24/17 16:45 02/24/17 22:58 (Ativan Inj) 2 mg Q2H PRN IV PUSH 02/24/17 16:45 (Ativan Inj) 2 mg Q1H PRN IV PUSH 02/24/17 16:45 (Ativan Inj) 2 mg Q15M PRN IV PUSH 02/24/17 16:45 (Vitamin B1) 100 mg DAILY PO 02/25/17 09:00 (Librium) 10 mg TID PRN PO 02/24/17 20:45 02/25/17 07:35 (Folate) 1 mg DAILY PO 02/25/17 09:00 (Catapres) 0.1 mg Q6H PRN PO 02/24/17 20:45 02/24/17 22:58 (Norvasc) 10 mg DAILY PO 02/25/17 09:00 02/25/17 08:52 Urinary Catheter: No Vascular Central Line Catheter: No A/P Problem List: (1) Upper GI bleed ICD Code: K92.2 Status: Acute (2) Alcohol withdrawal ICD Code: F10.239 Status: Acute Assessment and Plan 51-year-old man with past medical history which includes EtOH abuse, GI bleed status post cauterization, hypertension, COPD, hepatitis B and C with cirrhosis , seizures from EtOH withdrawal presented to the ED for evaluation of an acute onset of bright red emesis in the toilet bowl and one week history of intermittent epigastric discomfort for associated with loose black blood. Patient reported worsening lightheadedness as well as dizziness. He states over the past 5 days he hasn't had any drink. 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
--- NOTE | 2017-02-25 17:05 | PD.CONS ---
HPI History of Present Illness This is a 51 year old [male] w/ hx GI bleeds requiring cautery, ETOH abuse, hep B, hep C , cirrhosis, who presented to ER yesterday for lower abdominal pain with hematemesis. Onset 2d ago n/v, abd pain. Yesterday he noticed bright red blood in [id number]. He has been noticing black stools for about 4 days. He experienced this before about 6m ago, says he had EGD. Pt is poor historian. He said he had a couple beers 3 days ago b/c he was getting the shakes. he is trying to quit drinking but he can't b/c he gets shaky and needs more ETOH. ( Rubi Ash) PFSH Past Medical History Rheumatoid arthritis Hepatitis B Hepatitis C Anxiety/depression Cirrhosis of the liver COPD Chronic pancreatitis GERD Hypertension Past Surgical History Liver biopsy Right ankle surgery (Rubi Ash) Coded Allergies: Prednisone (Verified Allergy, Severe, Rash, 02/24/17) *MDRO Multi-Drug Resistant Organism (Verified Adverse Reaction, Unknown, Cleared, 02/24/17) MRSA arm wound 2008 MRSA PCR Screen negative 01/06/15 and 05/30/15. Cleared by Infection Control. Family History COPD Heart disease Social History He states that he is trying to quit smoking and trying to quit drinking alcohol. He has reported drinking up to a half gallon of vodka daily previously. Smokes about half a pack per day. Denies recent IV drug abuse. States that he last used illicit drugs 10 years ago (Rubi Ash) Review of Systems Constitutional: DENIES: Fever Eyes: DENIES: Blurred vision Ears, nose, mouth, throat: DENIES: Hearing loss Respiratory: DENIES: Hemoptysis Gastrointestinal: COMPLAINS OF: Abdominal pain, Black stools, Nausea, Vomiting , Hematemesis, DENIES: Bloody stools, Constipation, Diarrhea Genitourinary: DENIES: Hematuria Musculoskeletal: DENIES: Muscle aches Integumentary: DENIES: Abnormal pigmentation Neurologic: DENIES: Headache Psychiatric: DENIES: Confusion (Rubi Ash) GI Exam Vitals I&O Vital Signs Date Time Temp Pulse Resp B/P Pulse Ox O2 Delivery O2 Flow Rate FiO2 02/25/17 12:00 98.0 81 18 137/77 100 02/25/17 08:30 98.0 86 18 128/91 98 02/25/17 07:26 97.3 85 18 135/89 97 02/25/17 04:31 97.7 86 20 148/98 98 02/25/17 00:12 96.8 86 24 146/95 96 02/24/17 20:00 98.0 81 20 143/104 97 02/24/17 19:42 67 20 150/74 99 I/O 02/24/17 02/24/17 02/24/17 02/25/17 02/25/17 02/25/17 07:00 15:00 23:00 07:00 15:00 23:00 Intake Total 0 ml 880 ml Output Total 400 ml 450 ml 700 ml Balance -400 ml -450 ml -700 ml 880 ml Intake Oral 0 ml IV Total 880 ml Output Urine Total 400 ml 450 ml 700 ml # Bowel Movements 0 0 Laboratory Test 02/24/17 02/25/17 02/25/17 23:25 10:31 12:02 Hemoglobin 13.1 GM/DL 12.1 GM/DL Hematocrit 40.9 % 37.1 % White Blood Count 3.6 TH/MM3 Red Blood Count 4.80 MIL/MM3 Mean Corpuscular Volume 79.7 FL Mean Corpuscular Hemoglobin 25.1 PG Mean Corpuscular Hemoglobin 31.5 % Concent Red Cell Distribution Width 20.1 % Platelet Count 136 TH/MM3 Mean Platelet Volume 7.9 FL Neutrophils (%) (Auto) 57.2 % Lymphocytes (%) (Auto) 28.8 % Monocytes (%) (Auto) 10.5 % Eosinophils (%) (Auto) 2.1 % Basophils (%) (Auto) 1.4 % Neutrophils # (Auto) 2.1 TH/MM3 Lymphocytes # (Auto) 1.0 TH/MM3 Monocytes # (Auto) 0.4 TH/MM3 Eosinophils # (Auto) 0.1 TH/MM3 Basophils # (Auto) 0.0 TH/MM3 CBC Comment DIFF FINAL Differential Comment Sodium Level 139 MEQ/L Potassium Level 3.6 MEQ/L Chloride Level 101 MEQ/L Carbon Dioxide Level 26.0 MEQ/L Anion Gap 12 MEQ/L Blood Urea Nitrogen 6 MG/DL Creatinine 0.54 MG/DL Estimat Glomerular Filtration 160 ML/MIN Rate Random Glucose 114 MG/DL Calcium Level 8.6 MG/DL Total Bilirubin 1.5 MG/DL Aspartate Amino Transf 121 U/L (AST/SGOT) Alanine Aminotransferase 35 U/L (ALT/SGPT) Alkaline Phosphatase 95 U/L Total Protein 7.2 GM/DL Albumin 3.5 GM/DL Physical Examination HEENT: EOMI; normocephalic; atraumatic; no jaundice. CHEST: diminished lung sounds CARDIAC: RRR ABDOMEN: Soft, distended, nontender; no hepatosplenomegaly; bowel sounds are present in all four quadrants. EXTREMITIES: No clubbing, cyanosis, or edema. SKIN: Normal; no rash; no jaundice. INTELLIGENCE ENGINEER: No focal deficits; alert and oriented times three. (Rubi Ash) Assessment and Plan Plan ASSESSMENT - hematemesis - onset 1 day ago. Pt with lower abdominal cramping, black stools , n/v prior. hx GI bleeds, cirrhosis. - anemia - 12.2 on admission, stable today. - cirrhosis - hx ETOH abuse, hep B, hep C PLAN - EGD tomorrow - obtain consents - NPO after midnight - clears for now - monitor HH - transfuse PRN - further recommendations to follow This pt seen by myself and Dr Gracia and this note is written on his behalf ( Rubi Ash) Physician Comments Seen and examined, plan as above, will schedule EGD in AM. Further recommendations based on above findings. (Yudy Gracia MD) Rubi Ash Feb 25, 2017 17:05 Yudy Gracia MD Feb 25, 2017 17:07
[2017-02-25] MEDS: OCTREOTIDE INJ 500 MCG in SODIUM CHLORID 0.9% 500 ML INJ 499.5 ML IV SCH (19:58)
[2017-02-25 23:03] LABS: HEMATOCRIT 34.4 % (39.0-51.0); REVIEW FLAG FINAL
[2017-02-26] VITALS: BP 118/77; PULSE 86; RESP 20; TEMP 98.2; O2SAT 97
[2017-02-26] MEDS: LORazepam 2 MG/ML VIAL IV PUSH PRN ×2 (01:39→05:38)
[2017-02-26 04:00] VITALS: BP 132/95; PULSE 80; RESP 20; TEMP 97; O2SAT 98
[2017-02-26] MEDS: PANTOPRAZOLE INJ 80 MG in SODIUM CHLORIDE 0.9% INJ 100 ML IV SCH (05:38)
[2017-02-26 07:05] LABS: AUTOMATED NEUTROPHIL # 1.9 TH/MM3 (1.8-7.7); BASOPHIL # 0.1 TH/MM3 (0-0.2); BASOPHIL % 1.5 % (0.0-2.0); EOSINOPHIL # 0.2 TH/MM3 (0-0.4); EOSINOPHIL % 4.1 % (0.0-4.0); HEMATOCRIT 37.4 % (39.0-51.0); HEMO FLAGS DIFF FINAL; LYMPH % 42.2 % (9.0-44.0); LYMPHOCYTE # 1.8 TH/MM3 (1.0-4.8); MEAN CORPUSCULAR HEMOGLOBIN 25.1 PG (27.0-34.0); MEAN CORPUSCULAR HGB CONC 31.4 % (32.0-36.0); MONO % 8.1 % (0.0-8.0); NEUT % 44.1 % (16.0-70.0); PLATELET COUNT 120 TH/MM3 (150-450); RED BLOOD COUNT 4.68 MIL/MM3 (4.50-5.90); WHITE BLOOD COUNT 4.2 TH/MM3 (4.0-11.0)
[2017-02-26 07:21] LABS: ANION GAP 8 MEQ/L (5-15); AST (GOT) 99 U/L (15-37); BICARBONATE 28.6 MEQ/L (21.0-32.0); BLOOD UREA NITROGEN 5 MG/DL (7-18); CHLORIDE 101 MEQ/L (98-107); GLOMERULAR FILTRATION RATE 142 ML/MIN (>89); POTASSIUM 3.1 MEQ/L (3.5-5.1); SODIUM (NA) 138 MEQ/L (136-145)
[2017-02-26 07:26] LABS: ALKALINE PHOSPHATASE 86 U/L (45-117); ALT (GPT) 34 U/L (12-78); TOTAL BILIRUBIN ADULT 1.4 MG/DL (0.2-1.0)
[2017-02-26 07:30] VITALS: BP 144/86; PULSE 81; RESP 20; TEMP 96.8; O2SAT 100
[2017-02-26] MEDS: FOLIC ACID 1 MG TAB PO SCH (09:00)
[2017-02-26] MEDS: SODIUM CHLORIDE 0.9% FLUSH 10 ML FLUSH IV FLUSH SCH (09:00)
[2017-02-26] MEDS: THIAMINE HCL 100 MG TAB PO SCH (09:00)
[2017-02-26] MEDS ORDERED: POTASSIUM CHLOR 20 MEQ PREMIX 100 ML IV SCH (10:00)
[2017-02-26] MEDS ORDERED: PROPOFOL 200 MG/20 ML AMP IV ONE (11:37)
[2017-02-26] MEDS ORDERED: MIDAZOLAM HCL 2 MG/2 ML VIAL IV ONE (11:37)
--- NOTE | 2017-02-26 11:48 | GIPROC ---
[facility] [address] [facility] [place], [address] EGD PROCEDURE REPORT EXAM DATE: 02/26/2017 PATIENT NAME: Porfirio Pink MR #: [id number] BIRTHDATE: 1965 ATTENDING: Yudy Gracia MD ORDER #: [id number] AUDIT PARTNER: Marbin Sorensen and Ana Escalante STATUS: inpatient INDICATIONS: The patient is a 51 yr old male here for an EGD due to hematemesis PROCEDURE PERFORMED: EGD w/ biopsy MEDICATIONS: None and Per Anesthesia. TOPICAL ANESTHETIC: none CONSENT: The patient understands the risks and benefits of the procedure and understands that these risks include, but are not limited to: sedation, allergic reaction, infection, perforation and/or bleeding. Alternative means of evaluation and treatment include, among others: physical exam, x-rays, and/or surgical intervention. The patient elects to proceed with this endoscopic procedure. medical equipment was checked for proper function. Hand hygiene and appropriate measures for infection prevention was taken. After the risks, benefits and alternatives of the procedure were thoroughly explained, Informed consent was verified, confirmed and timeout was successfully executed by the treatment team. The patient was anesthetized with topical anesthesia and the Pentax [id number] endoscope was introduced through the mouth and advanced to the second portion of the duodenum. Retroflexion was performed and was normal The gastroscope was then slowly withdrawn and removed. ESOPHAGUS: The esophagus was otherwise normal. STOMACH: The mucosa of the stomach appeared normal. Multiple biopsies were performed using cold forceps. Sample sent for histology. DUODENUM: Three medium sized non-bleeding non-bleeding, round and clean-based ulcers were found in the duodenal bulb. ADVERSE EVENTS: There were no complications. IMPRESSIONS: 1. The esophagus was otherwise normal 2. The mucosa of the stomach appeared normal; multiple biopsies were performed 3. Three medium sized non-bleeding ulcers were found in the duodenal bulb 4. Retroflexion was performed and was normal RECOMMENDATIONS: 1. Continue PPI 2. Await biopsy results. Biopsy results will not be ready for 7-10 days. If you don't hear from us in two weeks, call our office for biopsy results. PATIENT CONDITION: stable DISPOSITION: Observation REPEAT EXAM: Return as needed for EGD Yudy Gracia MD eSigned: Yudy Gracia MD 02/26/2017 11:48 AM cc: PATIENT NAME: Porfirio Pink MR#: [id number]
[2017-02-26 11:50] VITALS: BP_SYST 108; BP_SYST 140; BP_DIAS 66; BP_DIAS 92; PULSE 73; PULSE 74; RESP 20; TEMP 96.5; TEMP 97.9; O2SAT 97; O2SAT 99
[2017-02-26 12:06] VITALS: BP 115/70; PULSE 70; RESP 18; O2SAT 98
--- NOTE | 2017-02-26 12:47 | HHI.PR ---
Subjective Remarks Follow up for GI bleed. Patient is doing well. No further bleed. Underwent EGD which showed non-bleeding ulcers. No acute concerns. He does inquire about pain medications he takes at home. Objective Vitals Vital Signs Date Time Temp Pulse Resp B/P Pulse Ox O2 Delivery O2 Flow Rate FiO2 02/26/17 12:06 70 18 115/70 98 02/26/17 11:56 65 18 121/81 98 02/26/17 11:46 65 18 121/81 98 02/26/17 09:52 02/26/17 07:30 96.8 81 20 144/86 100 02/26/17 04:00 97.0 80 20 132/95 98 02/26/17 00:00 98.2 86 20 118/77 97 02/25/17 20:00 98.8 74 20 115/76 96 02/25/17 16:00 98.3 81 20 133/87 98 I/O 02/25/17 02/25/17 02/25/17 02/26/17 02/26/17 02/26/17 07:00 15:00 23:00 07:00 15:00 23:00 Intake Total 0 ml 3300 ml 925 ml 500 ml Output Total 450 ml 700 ml 900 ml 200 ml Balance -450 ml -700 ml 2400 ml 925 ml 300 ml Intake Oral 0 ml 2420 ml IV Total 880 ml 925 ml Other 500 ml Output Urine Total 450 ml 700 ml 900 ml 200 ml # Bowel Movements 0 0 Result Diagram: 02/26/17 0531 02/26/17 05 Objective Remarks GENERAL: AOX3, NAD. SKIN: Warm and dry. HEAD: Normocephalic. EYES: No scleral icterus. No injection or drainage. NECK: Supple, trachea midline. No JVD or lymphadenopathy. CARDIOVASCULAR: Regular rate and rhythm without murmurs, gallops, or rubs. RESPIRATORY: Breath sounds equal bilaterally. No accessory muscle use. GASTROINTESTINAL: Abdomen soft, non-tender, nondistended. MUSCULOSKELETAL: No cyanosis, or edema. BACK: Nontender without obvious deformity. No CVA tenderness. Procedures EGD 02/26/2017 IMPRESSIONS: 1. The esophagus was otherwise normal 2. The mucosa of the stomach appeared normal; multiple biopsies were performed 3. Three medium sized non-bleeding ulcers were found in the duodenal bulb 4. Retroflexion was performed and was normal A/P Problem List: (1) Upper GI bleed ICD Code: K92.2 Status: Acute (2) Alcohol withdrawal ICD Code: F10.239 Status: Acute Assessment and Plan 51-year-old man with past medical history which includes EtOH abuse, GI bleed status post cauterization, hypertension, COPD, hepatitis B and C with cirrhosis , seizures from EtOH withdrawal presented to the ED for evaluation of an acute onset of bright red emesis in the toilet bowl and one week history of intermittent epigastric discomfort for associated with loose black blood. Patient reported worsening lightheadedness as well as dizziness. He states over the past 5 days he hasn't had any drink. Upper GI bleed suspected -D/C Protonix and octreotide drips - EGD showed non-bleeding ulcers. Bx taken. Follow up with GI. -Discussed with GI attending who is okay with our plan to discharge patient home with GI follow up. - Continue Protonix 40mg BID - Hypokalemia - K+ 3.1 - Received 20 meQ of KCL IV. - Patient was given PO KCL rx on discharge - 20meq BID x 5 days. - Hypertension - continue home med Amlodipine. 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 GI prophylaxis: PPI DVT prophylaxis: SCDs Discharge patient to home Condition on discharge: Improved Heart healthy Diet as tolerated Ad Sonja activity Rx written: - Protonix 40mg BID - KCL PO 20meq PO BID X 5 days. Follow-up with primary care physician within one week and GI within two weeks. Joseph Fuentes DO Feb 26, 2017 12:47
[2017-02-26] MEDS ORDERED: LORazepam 2 MG/ML VIAL IM ONE (13:00)
[2017-02-26] MEDS ORDERED: POTA1TAB4 PO (13:21)
[2017-02-26] MEDS ORDERED: PROT40TA PO (13:21)
== END 2017-02-26 17:40 | disposition home or self-care (01) | DRG 378 ==
LOC: NEPD 11:52 → NEDA 16:39 → NEPHCDU 19:03 → OBSVTOIN 20:36 → HOCA 02-25 08:00
PROVIDERS: ADMIT Hospitalist; ATTEND Hospitalist
PROC: 0DB68ZX Excision of Stomach, Via Natural or Artificial Opening Endoscopic, Diagnostic (ICD-10-PCS; principal; 2017-02-26 11:30)
DX: K26.4 Chronic or unspecified duodenal ulcer with hemorrhage (principal); K86.1 Other chronic pancreatitis; K70.30 Alcoholic cirrhosis of liver without ascites; J44.9 Chronic obstructive pulmonary disease, unspecified; B19.10 Unspecified viral hepatitis B without hepatic coma; F10.239 Alcohol dependence with withdrawal, unspecified; B19.20 Unspecified viral hepatitis C without hepatic coma; K74.69 Other cirrhosis of liver; I10 Essential (primary) hypertension; F32.9 Major depressive disorder, single episode, unspecified; F41.9 Anxiety disorder, unspecified; K21.9 Gastro-esophageal reflux disease without esophagitis; M06.9 Rheumatoid arthritis, unspecified; G47.00 Insomnia, unspecified; F17.210 Nicotine dependence, cigarettes, uncomplicated; E87.6 Hypokalemia; D64.9 Anemia, unspecified
CPT/HCPCS: 76937; 80053; 81001; 83690; 83735; 85014; 85018; 85025; 85610; 85730; 86850; 86900; 86901; 88305; 88312; 96365; 96375; 96376; C9113; J2060; J2250; J2354; J2405; J3480; J7030; J7040

== ENCOUNTER 2017-03-04 13:40 | Emergency (ER) | payer OTHER ==
[~2017-03-04] VITALS: Ht 198.1 cm; Wt 89.0 kg
[~2017-03-04 13:40] MED LIST changes: +POTA1TAB4 PO
[2017-03-04] MEDS ORDERED: MORP1TAB24 PO (13:53)
[2017-03-04 13:55] VITALS: BP 146/91; PULSE 96; RESP 18; TEMP 98.1; O2SAT 99
--- NOTE | 2017-03-04 14:43 | PD ---
HPI Chief Complaint: Complaint Time Seen by Provider: 14:00 Travel History International Travel<30 days: No Contact w/Intl Traveler<30days: No Traveled to known affect area: No History of Present Illness HPI 51-year-old male presents emergency department with chief complaint of sores on hands and dysuria. He reports the sores on his hands developed approximately one week ago. He denies injury, insect bites, any new lotion or soaps. He reports the lesions began as vesicles and then open spontaneously draining what appears to be pus. He also reports dysuria and frequency the last 3 days. He denies fever, chills, nausea, vomiting, abdominal pain. PFSH Past Medical History Hx Anticoagulant Therapy: No Arthritis: Yes (RA) Asthma: No Blood Disorders: Yes (HEPATITIS B AND C NO TREATMENT) Anxiety: Yes Depression: Yes Heart Rhythm Problems: No Cancer: No Cardiovascular Problems: Yes High Cholesterol: No Chemotherapy: No Chest Pain: Yes (PALPITATIONS) Congestive Heart Failure: No Cirrhosis: Yes COPD: Yes Cerebrovascular Accident: No Diabetes: No Diminished Hearing: No Endocrine: No Gastrointestinal Disorders: Yes (PANCREATITIS) GERD: Yes Genitourinary: No Headaches: Yes Hepatitis: Yes (B & C) Hiatal Hernia: No Heparin Induced Thrombocytopen: No Herniated Disk: Yes Hypertension: Yes Immune Disorder: No Implanted Vascular Access Dvce: Yes Insomnia: Yes Kidney Stones: No Musculoskeletal: Yes (CHRONIC BACK PAIN) Neurologic: Yes Psychiatric: Yes Reproductive: No Respiratory: Yes Integumentary: Yes (HX IV DRUG USE) Immunizations Current: Yes Migraines: Yes Pancreatitis: Yes Pneumonia: Yes Radiation Therapy: No Renal Failure: No Seizures: No Sickle Cell Disease: No Sleep Apnea: No Thyroid Disease: No Ulcer: Yes Tetanus Vaccination: < 5 Years Influenza Vaccination: Yes PNEUMOCCOCAL Vaccine (Year): 2 Past Surgical History Abdominal Surgery: Yes (LIVER BIOPSY) AICD: No Arteriovenous Shunt: No Body Medical Devices: STEEL PLATE IN RIGHT ANKLE Cardiac Surgery: No Ear Surgery: No Endocrine Surgery: Yes (LIVER BIOPSY) Eye Surgery: No Genitourinary Surgery: No Gynecologic Surgery: No Hysterectomy: No Insulin Pump: No Joint Replacement: No Neurologic Surgery: No Oral Surgery: No Pacemaker: No Thoracic Surgery: Yes (CHEST TUBE- R/O TB 2009) Tonsillectomy: Yes Other Surgery: Yes (RIGHT ANKLE PLATE/SCREWS) Social History Alcohol Use: Yes (Denies today) Tobacco Use: Yes (1/2 PPD) Substance Use: No (Denies today) Allergies-Medications (Allergen,Severity, Reaction): Coded Allergies: Prednisone (Verified Allergy, Severe, Rash, 03/04/17) *MDRO Multi-Drug Resistant Organism (Verified Adverse Reaction, Unknown, Cleared, 03/04/17) MRSA arm wound 2008 MRSA PCR Screen negative 01/06/15 and 05/30/15. Cleared by Infection Control. Reported Meds & Prescriptions Reported Meds & Active Scripts Active Protonix (Pantoprazole Sodium) 40 Mg Tab 40 Mg PO BID Sucralfate 1 Gm Tab 1 Gm PO QID on empty stomach Reported Morphine ER (Morphine Sulfate) 15 Mg Tab 15 Mg PO BID Oxycodone (Oxycodone HCl) 15 Mg Tab 15 Mg PO Q8HR Review of Systems Except as stated in HPI: all other systems reviewed are Neg Physical Exam Narrative GENERAL: Well-nourished, well-developed patient. SKIN: Focused skin assessment multiple open sores on bilateral hands. No surrounding cellulitis. No lymphangitis. No abscess. HEAD: Normocephalic. EYES: No scleral icterus. No injection or drainage. NECK: Supple, trachea midline. No JVD or lymphadenopathy. CARDIOVASCULAR: Regular rate and rhythm without murmurs, gallops, or rubs. RESPIRATORY: Breath sounds equal bilaterally. No accessory muscle use. GASTROINTESTINAL: Abdomen soft, non-tender, nondistended. MUSCULOSKELETAL: No cyanosis, or edema. BACK: Nontender without obvious deformity. No CVA tenderness. Data Data Last Documented VS Vital Signs Date Time Temp Pulse Resp B/P Pulse Ox O2 Delivery O2 Flow Rate FiO2 03/04/17 13:55 98.1 96 18 146/91 99 Orders Urinalysis - C+S If Indicated (03/04/17 14:10) Labs Laboratory Tests Test 03/04/17 14:45 Urine Collection Type CLEAN CATCH Urine Color YELLOW Urine Turbidity CLEAR Urine pH 6.[address] [place] 1.021 Urine Protein NEG mg/dL Urine Glucose (UA) NEG mg/dL Urine Ketones NEG mg/dL Urine Occult Blood NEG Urine Nitrite NEG Urine Bilirubin NEG Urine Leukocyte Esterase NEG Urine RBC 0-3 /hpf Urine Squamous Epithelial 0-5 /hpf Cells Microscopic Urinalysis Comment CULT NOT INDICATED Urine Collection Time 14:45 [facility] Medical Decision Making Medical Screen Exam Complete: Yes Emergency Medical Condition: Yes Differential Diagnosis Wound infection, abscess, UTI, dysuria Narrative Course 51-year-old male presents emergency department with multiple chief complaints. Patient reports multiple wounds on both hands for the past 5 days. He also reports dysuria for the last 3 days. He denies fevers, chills, nausea, vomiting. On exam he is well appearing. Patient does have multiple open lesions on both hands that are consistent with insect bites with localized trauma from scratching. Some of the lesions have a small amount of drainage. Patient will be treated with antibiotics for hand wounds. UA does not indicate any infection. Diagnosis Primary Impression: Wound infection Additional Impression: Dysuria Referrals: Primary Care Physician Additional Instructions: Follow up with her primary doctor. Take the medication as prescribed. Return to the emergency department if he developed new or worsening symptoms. Scripts Sulfamethoxazole-Trimethoprim (Bactrim DS)800-160 Mg Tab1 Tab PO BID #14 TAB Prov:Harriet Mckeon 03/04/17 Disposition: 01 DISCHARGE HOME Condition: Stable Harriet Mckeon Mar 04, 2017 14:43
[2017-03-04 15:07] LABS: BLOOD, URINE NEG (NEG); GLUCOSE,URINE NEG (NEG); KETONE, URINE NEG (NEG); NITRITE,URINE NEG (NEG)
[2017-03-04 15:13] LABS: METHOD OF COLLECTION CLEAN CATCH; URINE COLOR YELLOW (YELLW/STRAW)
[2017-03-04 15:14] LABS: COMMENT (UR) CULT NOT INDICATED; CULTURE IF INDICATED CULT NOT INDICATED; RBC, URINE 0-3 /hpf (0-3); SQUAMOUS EPITHELIAL CELL URINE 0-5 /hpf (0-5)
[2017-03-04] MEDS ORDERED: BACT800T5 PO (15:22)
== END 2017-03-04 15:35 | disposition home or self-care (01) ==
LOC: PHEFT 13:40
DX: L08.9 Local infection of the skin and subcutaneous tissue, unspecified (principal); R30.0 Dysuria
CPT/HCPCS: 81001; 99283

== ENCOUNTER 2017-03-23 21:54 | Emergency (ER) | payer SELFPAY ==
[~2017-03-23 21:54] MED LIST changes: -ALBUAER3 INH; -AMLO10TA2 PO; +BACT800T5 PO; -CHLORDIAZEPOXIDE PO; -GNP100TA3 PO; +MORP1TAB24 PO; -POTA1TAB4 PO
[2017-03-23 22:00] VITALS: BP 136/93; PULSE 93; RESP 20; TEMP 98.6; O2SAT 95
[2017-03-23] MEDS ORDERED: SODIUM CHLOR 0.9% 1000 ML INJ 1,000 ML IV ONE (22:15)
[2017-03-23] MEDS ORDERED: ONDANSETRON HCL 4 MG/2 ML VIAL IV PUSH ONE (22:15)
[2017-03-23] MEDS ORDERED: FAMOTIDINE 20 MG/2 ML VIAL IV PUSH ONE (22:15)
--- NOTE | 2017-03-23 22:24 | PD ---
HPI Chief Complaint: Alcohol/Drug Intoxication Time Seen by Provider: 22:18 Travel History International Travel<30 days: No Contact w/Intl Traveler<30days: No Traveled to known affect area: No History of Present Illness HPI 51-year-old white male presents to emergency department by EMS for evaluation of alcohol intoxication and chronic abdominal pain. The patient has a history of chronic alcohol abuse, hepatitis B&C, cirrhosis, chronic opiate abuse, rheumatoid arthritis, chronic back pain. Police were summoned to the home due to a disturbance at the house. The patient was found to be intoxicated. Patient complained of abdominal pain at the scene and was advised to come to the ER go to [facility]. Patient has decided to come to the ER for evaluation treatment. He denies any fever or chills. He does admit to nausea and vomiting earlier. He does complain of chronic abdominal discomfort. No fever chills. No dysuria, frequency. No melena. No hematemesis. No suicidal or homicidal ideation. PFSH Past Medical History Hx Anticoagulant Therapy: No Arthritis: Yes (RA) Asthma: No Blood Disorders: Yes (HEPATITIS B AND C NO TREATMENT) Anxiety: Yes Depression: Yes Heart Rhythm Problems: No Cancer: No Cardiovascular Problems: Yes High Cholesterol: No Chemotherapy: No Chest Pain: Yes (PALPITATIONS) Congestive Heart Failure: No Cirrhosis: Yes COPD: Yes Cerebrovascular Accident: No Diabetes: No Diminished Hearing: No Endocrine: No Gastrointestinal Disorders: Yes (PANCREATITIS) GERD: Yes Genitourinary: No Headaches: Yes Hepatitis: Yes (B & C) Hiatal Hernia: No Heparin Induced Thrombocytopen: No Herniated Disk: Yes Hypertension: Yes Immune Disorder: No Implanted Vascular Access Dvce: Yes Insomnia: Yes Kidney Stones: No Musculoskeletal: Yes (CHRONIC BACK PAIN) Neurologic: Yes Psychiatric: Yes Reproductive: No Respiratory: Yes Integumentary: Yes (HX IV DRUG USE) Immunizations Current: Yes Migraines: Yes Pancreatitis: Yes Pneumonia: Yes Radiation Therapy: No Renal Failure: No Seizures: No Sickle Cell Disease: No Sleep Apnea: No Thyroid Disease: No Ulcer: Yes PNEUMOCCOCAL Vaccine (Year): 2 Past Surgical History Abdominal Surgery: Yes (LIVER BIOPSY) AICD: No Arteriovenous Shunt: No Body Medical Devices: STEEL PLATE IN RIGHT ANKLE Cardiac Surgery: No Ear Surgery: No Endocrine Surgery: Yes (LIVER BIOPSY) Eye Surgery: No Genitourinary Surgery: No Gynecologic Surgery: No Hysterectomy: No Insulin Pump: No Joint Replacement: No Neurologic Surgery: No Oral Surgery: No Pacemaker: No Thoracic Surgery: Yes (CHEST TUBE- R/O TB 2009) Tonsillectomy: Yes Other Surgery: Yes (RIGHT ANKLE PLATE/SCREWS) Social History Alcohol Use: Yes (DAILY) Tobacco Use: Yes (1/2 PPD) Substance Use: No Allergies-Medications (Allergen,Severity, Reaction): Coded Allergies: Prednisone (Verified Allergy, Severe, Rash, 03/23/17) *MDRO Multi-Drug Resistant Organism (Verified Adverse Reaction, Unknown, Cleared, 03/23/17) MRSA arm wound 2008 MRSA PCR Screen negative 01/06/15 and 05/30/15. Cleared by Infection Control. Reported Meds & Prescriptions Reported Meds & Active Scripts Active Protonix (Pantoprazole Sodium) 40 Mg Tab 40 Mg PO BID Sucralfate 1 Gm Tab 1 Gm PO QID on empty stomach Reported Oxycodone (Oxycodone HCl) 15 Mg Tab 15 Mg PO Q8HR Review of Systems Except as stated in HPI: all other systems reviewed are Neg Physical Exam Narrative GENERAL: Well-developed, well-nourished in no apparent distress. Nontoxic appearing. Smells of EtOH and appears intoxicated. HEAD: Normocephalic, atraumatic. EYES: Pupils equal round and reactive. Extraocular motions intact. No scleral icterus. No injection or drainage. ENT: Nose clear. Throat without erythema, tonsillar hypertrophy or exudate. Uvula midline. Airway patent. NECK: Trachea midline. Supple, nontender, moves head freely. No central bony tenderness or spasm. CARDIOVASCULAR: Regular rate and rhythm without murmurs, gallops, or rubs. RESPIRATORY: Clear to auscultation. Breath sounds equal bilaterally. No wheezes , rales, or rhonchi. GASTROINTESTINAL: Abdomen soft, tenderness in the epigastric and right upper quadrant, nondistended. No hepato-splenomegaly, or palpable masses. No guarding. EXTREMITIES: No clubbing, cyanosis, or edema. No joint tenderness. BACK: Nontender without deformity. No flank tenderness. NEUROLOGICAL: Awake, alert and oriented x 3 .Cranial nerves grossly intact. Motor and sensory grossly within normal limits. Slurred speech. Ataxic due to alcohol intoxication. Data Data Last Documented VS Vital Signs Date Time Temp Pulse Resp B/P Pulse Ox O2 Delivery O2 Flow Rate FiO2 03/23/17 22:00 98.6 93 20 136/93 95 Orders Complete Blood Count With Diff (03/23/17 22:08) Comprehensive Metabolic Panel (03/23/17 22:08) Lipase (03/23/17 22:08) Iv Access Insert/Monitor (03/23/17 22:08) Alcohol (Ethanol) (03/23/17 22:08) Sodium Chlor 0.9% 1000 Ml Inj (Ns 1000 M (03/23/17 22:15) Ondansetron Inj (Zofran Inj) (03/23/17 22:15) Famotidine Inj (Pepcid Inj) (03/23/17 22:15) Labs Laboratory Tests Test 03/23/17 22:30 White Blood Count 5.7 TH/MM3 Red Blood Count 4.62 MIL/MM3 Hemoglobin 11.7 GM/DL Hematocrit 36.7 % Mean Corpuscular Volume 79.4 FL Mean Corpuscular Hemoglobin 25.3 PG Mean Corpuscular Hemoglobin 31.9 % Concent Red Cell Distribution Width 20.4 % Platelet Count 151 TH/MM3 Mean Platelet Volume 7.9 FL Neutrophils (%) (Auto) 47.2 % Lymphocytes (%) (Auto) 43.9 % Monocytes (%) (Auto) 6.5 % Eosinophils (%) (Auto) 1.6 % Basophils (%) (Auto) 0.8 % Neutrophils # (Auto) 2.7 TH/MM3 Lymphocytes # (Auto) 2.5 TH/MM3 Monocytes # (Auto) 0.4 TH/MM3 Eosinophils # (Auto) 0.1 TH/MM3 Basophils # (Auto) 0.0 TH/MM3 CBC Comment DIFF FINAL Differential Comment Sodium Level 149 MEQ/L Potassium Level 3.2 MEQ/L Chloride Level 115 MEQ/L Carbon Dioxide Level 26.6 MEQ/L Anion Gap 7 MEQ/L Blood Urea Nitrogen 6 MG/DL Creatinine 0.68 MG/DL Estimat Glomerular Filtration 123 ML/MIN Rate Random Glucose 101 MG/DL Calcium Level 8.7 MG/DL Total Bilirubin 0.5 MG/DL Aspartate Amino Transf 94 U/L (AST/SGOT) Alanine Aminotransferase 28 U/L (ALT/SGPT) Alkaline Phosphatase 67 U/L Total Protein 7.4 GM/DL Albumin 3.8 GM/DL Lipase 288 U/L Ethyl Alcohol Level 408 MG/DL MDM Medical Decision Making Medical Screen Exam Complete: Yes Emergency Medical Condition: Yes Medical Record Reviewed: Yes Interpretation(s) Laboratory Tests Test 03/23/17 22:30 White Blood Count 5.7 TH/MM3 Red Blood Count 4.62 MIL/MM3 Hemoglobin 11.7 GM/DL Hematocrit 36.7 % Mean Corpuscular Volume 79.4 FL Mean Corpuscular Hemoglobin 25.3 PG Mean Corpuscular Hemoglobin 31.9 % Concent Red Cell Distribution Width 20.4 % Platelet Count 151 TH/MM3 Mean Platelet Volume 7.9 FL Neutrophils (%) (Auto) 47.2 % Lymphocytes (%) (Auto) 43.9 % Monocytes (%) (Auto) 6.5 % Eosinophils (%) (Auto) 1.6 % Basophils (%) (Auto) 0.8 % Neutrophils # (Auto) 2.7 TH/MM3 Lymphocytes # (Auto) 2.5 TH/MM3 Monocytes # (Auto) 0.4 TH/MM3 Eosinophils # (Auto) 0.1 TH/MM3 Basophils # (Auto) 0.0 TH/MM3 CBC Comment DIFF FINAL Differential Comment Sodium Level 149 MEQ/L Potassium Level 3.2 MEQ/L Chloride Level 115 MEQ/L Carbon Dioxide Level 26.6 MEQ/L Anion Gap 7 MEQ/L Blood Urea Nitrogen 6 MG/DL Creatinine 0.68 MG/DL Estimat Glomerular Filtration 123 ML/MIN Rate Random Glucose 101 MG/DL Calcium Level 8.7 MG/DL Total Bilirubin 0.5 MG/DL Aspartate Amino Transf 94 U/L (AST/SGOT) Alanine Aminotransferase 28 U/L (ALT/SGPT) Alkaline Phosphatase 67 U/L Total Protein 7.4 GM/DL Albumin 3.8 GM/DL Lipase 288 U/L Ethyl Alcohol Level 408 MG/DL Differential Diagnosis Differential diagnoses: Alcohol intoxication, substance abuse, electrolyte abnormality, pancreatitis, malingering Narrative Course IV access is obtained. Patient's given a liter bolus of normal saline, formerly grams of Zofran, 20 mg of Pepcid IV. The patient's laboratory tests have been reviewed. He has a blood alcohol of 408. He will be sober up here in the ER. He will be able to be discharged at 6 :30 in the morning. The patient is a functional alcoholic. He did not want his alcohol level to be below the legal limit due to his chronic alcohol abuse. I suspect he would be in withdrawal and/or at risk for a withdrawal seizure if his alcohol were to be below the legal limit. This is alcohol intoxication, alcohol abuse, chronic abdominal pain Diagnosis Primary Impression: Alcohol intoxication Qualified Code: F10.920 - Alcohol intoxication, uncomplicated Additional Impressions: Alcohol abuse Chronic abdominal pain Patient Instructions: General Instructions Additional Instructions: Rest. Increase fluids. Avoid alcohol. Take 2 Pepcid [id number] twice daily. Avoid illegal substances. Follow-up with [facility] for detox. Do not operate a car or any heavy machinery under the influence of alcohol or drugs. Follow-up with a medical doctor this week. Return to the ER for emergencies Med/Other Pt SpecificInfo: No Meds Exist/No RX given Disposition: 01 DISCHARGE HOME Condition: Stable [place] Howe Mar 23, 2017 22:24
[2017-03-23 23:09] LABS: AUTOMATED NEUTROPHIL # 2.7 TH/MM3 (1.8-7.7); BASOPHIL % 0.8 % (0.0-2.0); EOSINOPHIL # 0.1 TH/MM3 (0-0.4); EOSINOPHIL % 1.6 % (0.0-4.0); HEMATOCRIT 36.7 % (39.0-51.0); HEMO FLAGS DIFF FINAL; LYMPH % 43.9 % (9.0-44.0); LYMPHOCYTE # 2.5 TH/MM3 (1.0-4.8); MEAN CELL VOLUME 79.4 FL (80.0-100.0); MEAN CORPUSCULAR HEMOGLOBIN 25.3 PG (27.0-34.0); MEAN CORPUSCULAR HGB CONC 31.9 % (32.0-36.0); MONO % 6.5 % (0.0-8.0); NEUT % 47.2 % (16.0-70.0); PLATELET COUNT 151 TH/MM3 (150-450); RED BLOOD COUNT 4.62 MIL/MM3 (4.50-5.90); RED CELL DISTRIBUTION WIDTH 20.4 % (11.6-17.2); WHITE BLOOD COUNT 5.7 TH/MM3 (4.0-11.0)
[2017-03-23 23:30] LABS: ALT (GPT) 28 U/L (12-78); ANION GAP 7 MEQ/L (5-15); AST (GOT) 94 U/L (15-37); BICARBONATE 26.6 MEQ/L (21.0-32.0); BLOOD UREA NITROGEN 6 MG/DL (7-18); CHLORIDE 115 MEQ/L (98-107); GLOMERULAR FILTRATION RATE 123 ML/MIN (>89); POTASSIUM 3.2 MEQ/L (3.5-5.1); SODIUM (NA) 149 MEQ/L (136-145)
[2017-03-23 23:31] LABS: ALKALINE PHOSPHATASE 67 U/L (45-117); TOTAL BILIRUBIN ADULT 0.5 MG/DL (0.2-1.0)
[2017-03-24] MEDS ORDERED: diphenhydrAMINE HCL 50 MG/ML VIAL IV PUSH ONE (01:15)
[2017-03-24] MEDS ORDERED: METOCLOPRAMIDE HCL 10 MG/2 ML VIAL IV PUSH ONE (01:15)
[2017-03-24 06:41] VITALS: BP 151/84
== END 2017-03-24 07:55 | disposition home or self-care (01) ==
LOC: NEPD 21:54
DX: F10.120 Alcohol abuse with intoxication, uncomplicated (principal); R10.9 Unspecified abdominal pain; G89.29 Other chronic pain; Y90.8 Blood alcohol level of 240 mg/100 ml or more
CPT/HCPCS: 80053; 80307; 83690; 85025; 96374; 96375; 99284; J1200; J2405; J2765; J7030

== ENCOUNTER 2017-03-26 15:30 | Inpatient (IN) | payer SELFPAY ==
[~2017-03-26] VITALS: Ht 198.1 cm; Wt 90.0 kg
[~2017-03-26 15:30] MED LIST changes: -BACT800T5 PO; -MORP1TAB24 PO
[2017-03-26 15:31] VITALS: BP 195/115; PULSE 97; RESP 20; TEMP 97.9; O2SAT 100
--- NOTE | 2017-03-26 16:01 | PD ---
Physical Exam Time Seen by Provider: 16:00 Narrative Pt presents to the ED for evaluation of abdominal pain, nausea and vomiting for 2 days. Hx of chronic pancreatitis. VSS. Awaiting bed placement. Data Data Last Documented VS Vital Signs Date Time Temp Pulse Resp B/P Pulse Ox O2 Delivery O2 Flow Rate FiO2 03/26/17 15:31 97.9 97 20 195/115 100 Room Air MDM Supervised Visit with APOLLO: Patience Calvert Mar 26, 2017 16:01
[2017-03-26 16:34] LABS: AUTOMATED NEUTROPHIL # 4.8 TH/MM3 (1.8-7.7); BASOPHIL % 0.3 % (0.0-2.0); EOSINOPHIL # 0.1 TH/MM3 (0-0.4); EOSINOPHIL % 1.2 % (0.0-4.0); HEMATOCRIT 38.7 % (39.0-51.0); HEMO FLAGS DIFF FINAL; LYMPH % 24.3 % (9.0-44.0); LYMPHOCYTE # 1.7 TH/MM3 (1.0-4.8); MEAN CORPUSCULAR HEMOGLOBIN 24.8 PG (27.0-34.0); MEAN CORPUSCULAR HGB CONC 30.7 % (32.0-36.0); MONO % 7.7 % (0.0-8.0); NEUT % 66.5 % (16.0-70.0); PLATELET COUNT 116 TH/MM3 (150-450); RED BLOOD COUNT 4.77 MIL/MM3 (4.50-5.90); RED CELL DISTRIBUTION WIDTH 19.6 % (11.6-17.2); WHITE BLOOD COUNT 7.2 TH/MM3 (4.0-11.0)
[2017-03-26 17:01] LABS: ALKALINE PHOSPHATASE 89 U/L (45-117); ALT (GPT) 26 U/L (12-78); ANION GAP 5 MEQ/L (5-15); AST (GOT) 93 U/L (15-37); BLOOD UREA NITROGEN 6 MG/DL (7-18); CHLORIDE 103 MEQ/L (98-107); GLOMERULAR FILTRATION RATE 117 ML/MIN (>89); POTASSIUM 3.6 MEQ/L (3.5-5.1); SODIUM (NA) 139 MEQ/L (136-145); TOTAL BILIRUBIN ADULT 1.5 MG/DL (0.2-1.0)
[2017-03-26 17:17] LABS: BLOOD, URINE NEG (NEG); COMMENT (UR) CULT NOT INDICATED; CULTURE IF INDICATED CULT NOT INDICATED; GLUCOSE,URINE NEG (NEG); KETONE, URINE NEG (NEG); NITRITE,URINE NEG (NEG); PH, URINE 7.5 (5.0-8.5); URINE COLOR YELLOW (YELLW/STRAW)
[2017-03-26] MEDS ORDERED: LORazepam 2 MG/ML VIAL IV PUSH ONE (17:30)
[2017-03-26] MEDS ORDERED: SODIUM CHLORIDE 0.9% FLUSH 10 ML FLUSH IV FLUSH PRN ×2 (17:30→20:15)
[2017-03-26] MEDS ORDERED: MORPHINE SULFATE 8 MG/ML INJ IV PUSH ONE (17:30)
--- NOTE | 2017-03-26 18:41 | PD ---
HPI Chief Complaint: Abdominal Pain Time Seen by Provider: 17:10 Travel History International Travel<30 days: No Contact w/Intl Traveler<30days: No Traveled to known affect area: No History of Present Illness HPI 51yo M with PMH of alcohol abuse and pancreatitis presents to the ED with c/o epigastric abdominal pain and NBNB vomiting for 2 days. Denies any fever, chest pain, sob, diarrhea, blood in vomit. Pt last drank alcohol 2 days ago. PFSH Past Medical History Hx Anticoagulant Therapy: No Arthritis: Yes (RA) Asthma: No Blood Disorders: Yes (HEPATITIS B AND C NO TREATMENT) Anxiety: Yes Depression: Yes Heart Rhythm Problems: No Cancer: No Cardiovascular Problems: Yes (IRREGULAR HR) High Cholesterol: No Chemotherapy: No Chest Pain: Yes (PALPITATIONS) Congestive Heart Failure: No Cirrhosis: Yes COPD: Yes Cerebrovascular Accident: No Diabetes: No Diminished Hearing: No Endocrine: No Gastrointestinal Disorders: Yes (PANCREATITIS) GERD: Yes Genitourinary: No Headaches: Yes Hepatitis: Yes (B & C) Hiatal Hernia: No Heparin Induced Thrombocytopen: No Herniated Disk: Yes Hypertension: Yes Immune Disorder: No Implanted Vascular Access Dvce: Yes Insomnia: Yes Kidney Stones: No Musculoskeletal: Yes (CHRONIC BACK PAIN) Neurologic: Yes Psychiatric: Yes Reproductive: Yes Respiratory: Yes (COPD / TB) Integumentary: Yes (HX IV DRUG USE) Immunizations Current: Yes Migraines: Yes Pancreatitis: Yes Pneumonia: Yes Radiation Therapy: No Renal Failure: No Seizures: No Sickle Cell Disease: No Sleep Apnea: No Thyroid Disease: No Ulcer: Yes Tetanus Vaccination: < 5 Years Influenza Vaccination: Yes PNEUMOCCOCAL Vaccine (Year): 2 Past Surgical History Abdominal Surgery: Yes (LIVER BIOPSY) AICD: No Arteriovenous Shunt: No Body Medical Devices: STEEL PLATE IN RIGHT ANKLE Cardiac Surgery: No Ear Surgery: No Endocrine Surgery: Yes (LIVER BIOPSY) Eye Surgery: No Genitourinary Surgery: No Gynecologic Surgery: No Hysterectomy: No Insulin Pump: No Joint Replacement: No Neurologic Surgery: No Oral Surgery: No Pacemaker: No Thoracic Surgery: Yes (CHEST TUBE- R/O TB 2009) Tonsillectomy: Yes Other Surgery: Yes (RIGHT ANKLE PLATE/SCREWS) Social History Alcohol Use: Yes (DAILY) Tobacco Use: Yes (1/2 PPD) Substance Use: No Allergies-Medications (Allergen,Severity, Reaction): Coded Allergies: Prednisone (Verified Allergy, Severe, Rash, 03/26/17) *MDRO Multi-Drug Resistant Organism (Verified Adverse Reaction, Unknown, Cleared, 03/26/17) MRSA arm wound 2009 MRSA PCR Screen negative 01/06/15 and 05/30/15. Cleared by Infection Control. Reported Meds & Prescriptions Reported Meds & Active Scripts Active Protonix (Pantoprazole Sodium) 40 Mg Tab 40 Mg PO BID Review of Systems Except as stated in HPI: all other systems reviewed are Neg Physical Exam Narrative GENERAL: 51yo M in moderate distress. SKIN: Focused skin assessment warm/dry. HEAD: Atraumatic. Normocephalic. EYES: Pupils equal and round. No scleral icterus. No injection or drainage. ENT: No nasal bleeding or discharge. Mucous membranes pink and moist. NECK: Trachea midline. No JVD. CARDIOVASCULAR: Regular rate and rhythm. No murmur appreciated. RESPIRATORY: No accessory muscle use. Clear to auscultation. Breath sounds equal bilaterally. GASTROINTESTINAL: Abdomen soft, +TTP epigastric tenderness. No rebound tenderness. MUSCULOSKELETAL: No obvious deformities. No clubbing. No cyanosis. No edema. NEUROLOGICAL: Awake and alert. No obvious cranial nerve deficits. Motor grossly within normal limits. Normal speech. PSYCHIATRIC: Appropriate mood and affect; insight and judgment normal. Data Data Last Documented VS Vital Signs Date Time Temp Pulse Resp B/P Pulse Ox O2 Delivery O2 Flow Rate FiO2 03/26/17 19:14 89 18 180/112 98 Room Air 03/26/17 15:31 97.9 Orders Complete Blood Count With Diff (03/26/17 16:01) Comprehensive Metabolic Panel (03/26/17 16:01) Lipase (03/26/17 16:01) Urinalysis - C+S If Indicated (03/26/17 16:01) Prothrombin Time / Inr (Pt) (03/26/17 17:23) Act Partial Throm Time (Ptt) (03/26/17 17:23) Iv Access Insert/Monitor (03/26/17 17:23) Ecg Monitoring (03/26/17 17:23) Oximetry (03/26/17 17:23) Sodium Chloride 0.9% Flush (Ns Flush) (03/26/17 17:30) Morphine Inj (Morphine Inj) (03/26/17 17:30) Lorazepam Inj (Ativan Inj) (03/26/17 17:30) Ct Abd/Pel W Iv Contrast(Rout) (03/26/17 ) Vascular Access Team Consult/P PRN (03/26/17 17:26) Vascular Poc Ultrasound (03/26/17 ) Admit Order (Ed Use Only) (03/26/17 19:25) Labs Laboratory Tests Test 03/26/17 03/26/17 16:11 17:00 White Blood Count 7.2 TH/MM3 Red Blood Count 4.77 MIL/MM3 Hemoglobin 11.9 GM/DL Hematocrit 38.7 % Mean Corpuscular Volume 81.0 FL Mean Corpuscular Hemoglobin 24.8 PG Mean Corpuscular Hemoglobin 30.7 % Concent Red Cell Distribution Width 19.6 % Platelet Count 116 TH/MM3 Mean Platelet Volume 7.8 FL Neutrophils (%) (Auto) 66.5 % Lymphocytes (%) (Auto) 24.3 % Monocytes (%) (Auto) 7.7 % Eosinophils (%) (Auto) 1.2 % Basophils (%) (Auto) 0.3 % Neutrophils # (Auto) 4.8 TH/MM3 Lymphocytes # (Auto) 1.7 TH/MM3 Monocytes # (Auto) 0.6 TH/MM3 Eosinophils # (Auto) 0.1 TH/MM3 Basophils # (Auto) 0.0 TH/MM3 CBC Comment DIFF FINAL Differential Comment Sodium Level 139 MEQ/L Potassium Level 3.6 MEQ/L Chloride Level 103 MEQ/L Carbon Dioxide Level 31.0 MEQ/L Anion Gap 5 MEQ/L Blood Urea Nitrogen 6 MG/DL Creatinine 0.71 MG/DL Estimat Glomerular Filtration 117 ML/MIN Rate Random Glucose 104 MG/DL Calcium Level 8.7 MG/DL Total Bilirubin 1.5 MG/DL Aspartate Amino Transf 93 U/L (AST/SGOT) Alanine Aminotransferase 26 U/L (ALT/SGPT) Alkaline Phosphatase 89 U/L Total Protein 8.0 GM/DL Albumin 4.1 GM/DL Lipase 1985 U/L Urine Color YELLOW Urine Turbidity CLEAR Urine pH 7.5 Urine Specific [place] 1.008 Urine Protein NEG mg/dL Urine Glucose (UA) NEG mg/dL Urine Ketones NEG mg/dL Urine Occult Blood NEG Urine Nitrite NEG Urine Bilirubin NEG Urine Urobilinogen LESS THAN 2.0 MG/DL Urine Leukocyte Esterase NEG Urine RBC LESS THAN 1 /hpf Urine WBC LESS THAN 1 /hpf Microscopic Urinalysis Comment CULT NOT INDICATED MDM Medical Decision Making Medical Screen Exam Complete: Yes Emergency Medical Condition: Yes Differential Diagnosis Acute pancreatitis vs. gastritis vs. alcohol withdrawal vs. colitis Narrative Course 51yo M with epigastric abdominal pain, vomiting. Labs reviewed, no leukocytosis. Lipase is elevated at 1985. Total bilirubin also elevated at 1.5. AST elevated at 93 but at baseline. UA negative. Pt given ativan, zofran and morphine with improvement of pain. Pt is also less tremulous now. CT a/p showed inflammatory and edematous changes around the pancreas characteristic of acute pancreatitis without evidence of pseudocyst. Pt is admitted under Dr. Allan for acute pancreatitis. Diagnosis Primary Impression: Acute pancreatitis Qualified Code: K85.90 - Acute pancreatitis, unspecified complication status, unspecified pancreatitis type Admitting Information Admitting Physician Requests: Admit Scripts Ketorolac 10 Mg Tab10 Mg PO Q6H PRN (pain 10) #20 TAB Prov:Larry Horvath MD 03/28/17 Ondansetron Odt (Zofran Odt)4 Mg Tab4 Mg SL Q12HR PRN (Nausea/Vomiting) #10 TAB Ref 0 Prov:Larry Horvath MD 03/28/17 Pantoprazole 40 Mg Tab40 Mg PO Q12HR #30 TAB Prov:Larry Horvath MD 03/28/17 Thiamine HCl (Gnp Vitamin B-1)100 Mg [id number] Mg PO DAILY #30 TAB Prov:Larry Horvath MD 03/28/17 Kimberly Forte DO Mar 26, 2017 18:41
[2017-03-26 19:14] VITALS: BP 180/112; PULSE 89; RESP 18; O2SAT 98
[2017-03-26] MEDS ORDERED: ONDANSETRON HCL 4 MG/2 ML VIAL IV PUSH ONE (19:45)
[2017-03-26] MEDS ORDERED: IOHEXOL 350 MG/ML 10 ML VIAL (for RAD DIAG) IV ONE (20:12)
[2017-03-26] MEDS ORDERED: THIAMINE HCL 100 MG TAB PO ONE (20:15)
[2017-03-26] MEDS ORDERED: NALOXONE HCL 0.4 MG/ML AMP IV PRN (20:15)
[2017-03-26] MEDS: SODIUM CHLOR 0.9% 1000 ML INJ 1,000 ML IV SCH (20:38)
--- NOTE | 2017-03-26 20:53 | RADRPT ---
EXAM DATE/TIME: 03/26/2017 20:07 [facility] COMPARISON: No previous studies available for comparison. INDICATIONS : Evaluate for upper abdomen pain. IV CONTRAST: 95 cc Omnipaque 350 (iohexol) IV ORAL CONTRAST: No oral contrast ingested. RADIATION DOSE: 9.96 CTDIvol (mGy) MEDICAL HISTORY : Cardiovascular disease. Hypertension. Chronic obstructive pulmonary disease.Hep C &B SURGICAL HISTORY : None. ENCOUNTER: Initial ACUITY: 1 day PAIN SCALE: 5/10 LOCATION: upper quadrant TECHNIQUE: Volumetric scanning of the abdomen and pelvis was performed. Using automated exposure control and ad justment of the mA and/or kV according to patient size, radiation dose was kept as low as reasonably achievable to obtain optimal diagnostic quality images. DICOM format image data is available electro nically for review and comparison. FINDINGS: Lung bases are clear. Mild fatty liver. Spleen, adrenals, kidneys unremarkable. There is inflammatory changes or edema around the pancreas characteristic of acute pancreatitis. No e vidence for pseudocyst. No calcified gallstones or biliary ductal dilatation. No significant free fluid. No free air. No pelvic masses. Bladder unremarkable. Prostatic calcificati ons noted. CONCLUSION: 1. Inflammatory and edematous changes around the pancreas characteristic of acute pancreatitis withou t evidence for pseudocyst. The splenic vein and portal vein patent. Mild fatty liver. Du Nieves MD on March 26, 2017 at 20:47 Board Certified Radiologist. This report was verified electronically.
[2017-03-26] MEDS: SODIUM CHLORIDE 0.9% FLUSH 10 ML FLUSH IV FLUSH SCH (20:57)
[2017-03-26] MEDS: HYDROmorphone HCL PF 1 MG/ML VIAL IV PUSH PRN (21:35)
[2017-03-26] MEDS: PANTOPRAZOLE SOD 40 MG DELAYED RELEASE TAB PO SCH (21:35)
[2017-03-26 21:47] VITALS: BP 163/99
[2017-03-26 22:20] VITALS: BP 172/108; PULSE 82; RESP 18; TEMP 97; O2SAT 96
[2017-03-26] MEDS: LORazepam 2 MG/ML VIAL IV PUSH PRN (22:57)
[2017-03-26 23:29] VITALS: PULSE 87
[2017-03-26 23:45] VITALS: BP 147/107; PULSE 83; RESP 18; TEMP 97.5; O2SAT 96
[2017-03-27] MEDS: HYDROmorphone HCL PF 1 MG/ML VIAL IV PUSH PRN ×3 (02:03→20:30)
[2017-03-27] MEDS: LORazepam 2 MG/ML VIAL IV PUSH PRN ×2 (02:08→08:53)
--- NOTE | 2017-03-27 03:03 | HHI.HP ---
[facility] Maribell Chang MD Admission Diagnosis Acute pancreatitis Diagnoses: Travel History International Travel<30 Days: No Contact w/Intl Traveler <30 Da: No Traveled to Known Affected Are: No History of Present Illness Written by DOUGLAS Campblel acting as scribe for [Sanjana] on 03/27/17 at 03: 03. 51 y/o with a history of ETOH abuse, HTN, TB, Hep B &C, Cirrhosis, COPD, and gastric ulcers presented to the ED with complaints of RUQ abdominal pain for 2 days with associated nausea and vomiting. He states the vomit was red in color but he was taking cough medicine that was red prior. He states he is trying to quit drinking but 2 days ago he had a few drinks and then his pain started. Denies any black colored stool or diarrhea. He is also complaining of having the shacks. He does have HTN but he does not take any medication, he was taking amlodipine but it made him shack and feel bad. Denies any chest pain, sob, fever or chills. Past Family Social History Past Medical History HTN ( not on medication) ETOH abuse TB Hep B &C Cirrhosis COPD Gastric ulcers Past Surgical History EGD with cautery of ulcer Reported Medications Reported Meds & Active Scripts Active Protonix (Pantoprazole Sodium) 40 Mg Tab 40 Mg PO BID Sucralfate 1 Gm Tab 1 Gm PO QID on empty stomach Reported Oxycodone (Oxycodone HCl) 15 Mg Tab 15 Mg PO Q8HR Allergies: Coded Allergies: Prednisone (Verified Allergy, Severe, Rash, 03/26/17) *MDRO Multi-Drug Resistant Organism (Verified Adverse Reaction, Unknown, Cleared, 03/26/17) MRSA arm wound 2008 MRSA PCR Screen negative 01/06/15 and 05/30/15. Cleared by Infection Control. Active Ordered Medications Current Medications Medications (Trade) Dose Ordered Sig/Karlos Route Start Time Stop Time Status Last Admin (NS 1000 ml Inj) 1,000 ml @ 100 mls/hr Q10H IV 03/26/17 20:03 03/26/17 20:38 (NS Flush) 2 ml UNSCH PRN IV FLUSH 03/26/17 20:15 (NS Flush) 2 ml BID IV FLUSH 03/26/17 21:00 03/26/17 20:57 (Zofran Inj) 4 mg Q6H PRN IVP 03/26/17 20:15 (Narcan Inj) 0.4 mg UNSCH PRN IV 03/26/17 20:15 (Dilaudid Pf Inj) 0.2 mg Q4H PRN IV PUSH 03/26/17 20:15 03/27/17 02:03 (Ativan Inj) 1 mg Q2H PRN IV PUSH 03/26/17 20:15 03/27/17 02:08 (Vitamin B1) 100 mg DAILY PO 03/27/17 09:00 (Protonix) 40 mg Q12HR PO 03/26/17 21:00 03/26/17 21:35 Family History Family history is significant for heart disease Social History Tobacco use: down to 6 cigarettes a day, prior was 1 PPD Alcohol use: Trying to quit, a few drinks a few days ago, use to drink vodka daily Illicit drug use: Denies Physical Exam Vital Signs Vital Signs Date Time Temp Pulse Resp B/P Pulse Ox O2 Delivery O2 Flow Rate FiO2 03/26/17 23:45 97.5 83 18 147/107 96 03/26/17 23:29 87 03/26/17 22:20 97.0 82 18 172/108 96 03/26/17 21:47 163/99 03/26/17 19:14 89 18 180/112 98 Room Air 03/26/17 15:31 97.9 97 20 195/115 100 Room Air Physical Exam GENERAL: This is a well-nourished, well-developed patient, in no apparent distress. SKIN: No rashes, ecchymoses or lesions. Cool and dry. HEAD: Atraumatic. Normocephalic. EYES: Pupils equal round and reactive. ENT: Nose without bleeding, purulent drainage or septal hematoma. NECK: Trachea midline. No JVD or lymphadenopathy. CARDIOVASCULAR: Regular rate and rhythm without murmurs, gallops, or rubs. RESPIRATORY: Clear to auscultation. Breath sounds equal bilaterally. No wheezes. GASTROINTESTINAL: Abdomen soft, RUQ tenderness, nondistended. No hepato- splenomegaly, or palpable masses. MUSCULOSKELETAL: Extremities without clubbing, cyanosis, or edema. No joint tenderness, effusion, or edema noted. No calf tenderness. NEUROLOGICAL: Awake and alert. Motor and sensory grossly within normal limits. Normal speech. Laboratory Laboratory Tests Test 03/26/17 03/26/17 16:11 17:00 White Blood Count 7.2 Red Blood Count 4.77 Hemoglobin 11.9 Hematocrit 38.7 Mean Corpuscular Volume 81.0 Mean Corpuscular Hemoglobin 24.8 Mean Corpuscular Hemoglobin 30.7 Concent Red Cell Distribution Width 19.6 Platelet Count 116 Mean Platelet Volume 7.8 Neutrophils (%) (Auto) 66.5 Lymphocytes (%) (Auto) 24.3 Monocytes (%) (Auto) 7.7 Eosinophils (%) (Auto) 1.2 Basophils (%) (Auto) 0.3 Neutrophils # (Auto) 4.8 Lymphocytes # (Auto) 1.7 Monocytes # (Auto) 0.6 Eosinophils # (Auto) 0.1 Basophils # (Auto) 0.0 CBC Comment DIFF FINAL Differential Comment Sodium Level 139 Potassium Level 3.6 Chloride Level 103 Carbon Dioxide Level 31.0 Anion Gap 5 Blood Urea Nitrogen 6 Creatinine 0.71 Estimat Glomerular Filtration 117 Rate Random Glucose 104 Calcium Level 8.7 Total Bilirubin 1.5 Aspartate Amino Transf 93 (AST/SGOT) Alanine Aminotransferase 26 (ALT/SGPT) Alkaline Phosphatase 89 Total Protein 8.0 Albumin 4.1 Lipase 1985 Urine Color YELLOW Urine Turbidity CLEAR Urine pH 7.5 Urine Specific [place] 1.008 Urine Protein NEG Urine Glucose (UA) NEG Urine Ketones NEG Urine Occult Blood NEG Urine Nitrite NEG Urine Bilirubin NEG Urine Urobilinogen LESS THAN 2.0 Urine Leukocyte Esterase NEG Urine RBC LESS THAN 1 Urine WBC LESS THAN 1 Microscopic Urinalysis Comment CULT NOT INDICATED Result Diagram: 03/26/17 1611 03/26/17 1611 Imaging Last Impressions Abdomen/Pelvis CT 03/26/17 0000 Signed Impressions: Service Date/Time: Sunday, March 26, 2017 20:07 - CONCLUSION: 1. Inflammatory and edematous changes around the pancreas characteristic of acute pancreatitis without evidence for pseudocyst. The splenic vein and portal vein patent. Mild fatty liver. Du Nieves MD Assessment and Plan Problem List: (1) Alcohol dependence ICD Code: F10.20 Status: Acute (2) Acute pancreatitis ICD Code: K85.9 Status: Acute Assessment and Plan 51 y/o with a history of ETOH abuse, HTN,TB, Hep B &C, Cirrhosis, COPD, and gastric ulcers presented to the ED with complaints of abdominal pain for 2 days with associated nausea and vomiting. Acute Pancreatitis Lipase 1984 CT abdomen reviewed shows acute pancreatis without evidence of pseudocyst. Mild fatty liver. -Cont IVF -Lipase in AM -Pain management with IV Dilaudid -Clear liquid diet HTN, chronic currently elevated -Vasotec PRN -Patient may need Po when pain in controlled, cont to monitor vitals Etoh Abuse/ Tobacco abuse -Ativan for withdrawals -Thiamine Daily -Encouraged to quit DVT prophylaxis: SCDs GI prophylaxis: Protonix Discussed Condition With Patient and ED physician Physician Certification 2 Midnight Certification Type: Admission for Inpatient Services Order for Inpatient Services The services are ordered in accordance with Medicare regulations or non- Medicare payer requirements, as applicable. In the case of services not specified as inpatient-only, they are appropriately provided as inpatient services in accordance with the 2-midnight benchmark. Estimated LOS (days): 3 days is the estimated time the patient will need to remain in the hospital, assuming treatment plan goals are met and no additional complications. Post-Hospital Plan: Home Problem Qualifiers (1) Acute pancreatitis: Lucy Cole Mar 27, 2017 03:03
[2017-03-27] MEDS ORDERED: ENALAPRILAT 1.25 MG/ML VIAL IV PUSH PRN (03:30)
[2017-03-27 04:00] VITALS: BP 136/96; PULSE 81; RESP 16; TEMP 97.8; O2SAT 95
[2017-03-27] MEDS: SODIUM CHLOR 0.9% 1000 ML INJ 1,000 ML IV SCH ×3 (06:03→20:31)
[2017-03-27 08:00] VITALS: BP 150/101; PULSE 75; RESP 19; TEMP 96.7; O2SAT 96
[2017-03-27 08:16] LABS: AUTOMATED NEUTROPHIL # 2.7 TH/MM3 (1.8-7.7); BASOPHIL % 0.6 % (0.0-2.0); EOSINOPHIL # 0.2 TH/MM3 (0-0.4); EOSINOPHIL % 4.6 % (0.0-4.0); HEMATOCRIT 38.3 % (39.0-51.0); HEMO FLAGS DIFF FINAL; LYMPH % 30.8 % (9.0-44.0); LYMPHOCYTE # 1.5 TH/MM3 (1.0-4.8); MEAN CELL VOLUME 80.1 FL (80.0-100.0); MEAN CORPUSCULAR HEMOGLOBIN 25.2 PG (27.0-34.0); MEAN CORPUSCULAR HGB CONC 31.5 % (32.0-36.0); MONO % 7.8 % (0.0-8.0); NEUT % 56.2 % (16.0-70.0); PLATELET COUNT 116 TH/MM3 (150-450); RED BLOOD COUNT 4.77 MIL/MM3 (4.50-5.90); RED CELL DISTRIBUTION WIDTH 19.6 % (11.6-17.2); WHITE BLOOD COUNT 4.9 TH/MM3 (4.0-11.0)
[2017-03-27 08:17] LABS: APTT (PATIENT) 29.2 SEC (24.3-30.1); INTERNATIONAL NORMALIZED RATIO 1.1 RATIO
[2017-03-27 08:26] LABS: ANION GAP 9 MEQ/L (5-15); AST (GOT) 81 U/L (15-37); BICARBONATE 26.3 MEQ/L (21.0-32.0); BLOOD UREA NITROGEN 6 MG/DL (7-18); CHLORIDE 100 MEQ/L (98-107); GLOMERULAR FILTRATION RATE 164 ML/MIN (>89); POTASSIUM 3.2 MEQ/L (3.5-5.1); SODIUM (NA) 135 MEQ/L (136-145)
[2017-03-27 08:27] LABS: ALT (GPT) 23 U/L (12-78)
[2017-03-27 08:30] LABS: ALKALINE PHOSPHATASE 91 U/L (45-117); TOTAL BILIRUBIN ADULT 1.8 MG/DL (0.2-1.0)
[2017-03-27] MEDS: SODIUM CHLORIDE 0.9% FLUSH 10 ML FLUSH IV FLUSH SCH ×2 (08:53→20:30)
[2017-03-27] MEDS: PANTOPRAZOLE SOD 40 MG DELAYED RELEASE TAB PO SCH ×2 (08:53→20:30)
[2017-03-27] MEDS: THIAMINE HCL 100 MG TAB PO SCH (08:53)
--- NOTE | 2017-03-27 11:06 | HHI.PR ---
Subjective Remarks Follow-up acute recurrent pancreatitis 03/27/17-patient seen and examined, complains of mid epigastric and back pain Objective Vitals Vital Signs Date Time Temp Pulse Resp B/P Pulse Ox O2 Delivery O2 Flow Rate FiO2 03/27/17 08:00 96.7 75 19 150/101 96 03/27/17 04:00 97.8 81 16 136/96 95 03/26/17 23:45 97.5 83 18 147/107 96 03/26/17 23:29 87 03/26/17 22:20 97.0 82 18 172/108 96 03/26/17 21:47 163/99 03/26/17 19:14 89 18 180/112 98 Room Air 03/26/17 15:31 97.9 97 20 195/115 100 Room Air I/O 03/26/17 03/26/17 03/26/17 03/27/17 03/27/17 03/27/17 07:00 15:00 23:00 07:00 15:00 23:00 Output Total 1400 ml Balance -1400 ml Output Urine Total 1400 ml # Bowel Movements 0 Result Diagram: 03/27/17 0727 03/27/17 0727 Imaging Last Impressions Abdomen/Pelvis CT 03/26/17 0000 Signed Impressions: Service Date/Time: Sunday, March 26, 2017 20:07 - CONCLUSION: 1. Inflammatory and edematous changes around the pancreas characteristic of acute pancreatitis without evidence for pseudocyst. The splenic vein and portal vein patent. Mild fatty liver. Du Nieves MD Objective Remarks GENERAL: NAD SKIN: Warm and dry. HEAD: Normocephalic. EYES: No scleral icterus. No injection or drainage. NECK: Supple, trachea midline. No JVD or lymphadenopathy. CARDIOVASCULAR: Regular rate and rhythm without murmurs, gallops, or rubs. RESPIRATORY: Breath sounds equal bilaterally. No accessory muscle use. GASTROINTESTINAL: Abdomen soft, mildly tender, nondistended. MUSCULOSKELETAL: No cyanosis, or edema. BACK: Nontender without obvious deformity. No CVA tenderness. A/P Problem List: (1) Recurrent acute pancreatitis ICD Code: K85.90 Status: Acute (2) Alcohol dependence ICD Code: F10.20 Status: Acute Assessment and Plan 51-year-old man with Recurrent Acute Pancreatitis -CT abdomen reviewed shows acute pancreatis without evidence of pseudocyst. Mild fatty liver. -Cont IVF -Continue to monitor lipase at it is trending down -Pain management with IV Dilaudid -Clear liquid diet HTN, chronic -Clonidine when necessary Etoh Abuse/ Tobacco abuse -Ativan for withdrawals -Thiamine Daily -CIWA protocol DVT prophylaxis: SCDs GI prophylaxis: Protonix Larry Horvath MD Mar 27, 2017 11:06
[2017-03-27] MEDS ORDERED: FLUMAZENIL 0.5 MG/5 ML VIAL IV PUSH PRN (11:15)
[2017-03-27] MEDS ORDERED: cloNIDine HCL 0.1 MG TAB PO PRN (11:15)
[2017-03-27] MEDS ORDERED: LORazepam 1 MG TAB PO PRN (11:15)
[2017-03-27] MEDS ORDERED: LORazepam 2 MG/ML VIAL IV PUSH PRN ×4 (11:15)
[2017-03-27 12:00] VITALS: BP 142/108; PULSE 86; RESP 19; TEMP 98.4; O2SAT 98
[2017-03-27] MEDS: ONDANSETRON HCL 4 MG/2 ML VIAL IVP PRN (14:45)
[2017-03-27 16:00] VITALS: BP 148/102; PULSE 75; RESP 18; TEMP 98.1; O2SAT 95
[2017-03-27] MEDS ORDERED: SUCR1TAB PO (16:18)
[2017-03-27 20:00] VITALS: BP 123/91; PULSE 85; RESP 20; TEMP 96.8; O2SAT 95
[2017-03-27] MEDS ORDERED: HYDROmorphone HCL PF 1 MG/ML VIAL IV PUSH ONE (22:30)
[2017-03-27] MEDS: LORazepam 2 MG TAB PO PRN (22:47)
[2017-03-27] MEDS ORDERED: NICOTINE 7 MG/24 HR PATCH T-DERMAL ONE (23:30)
[2017-03-28] VITALS: BP 123/91; PULSE 85; RESP 20; TEMP 96.8; O2SAT 95
[2017-03-28] MEDS: LORazepam 2 MG TAB PO PRN (01:20)
[2017-03-28] MEDS: SODIUM CHLOR 0.9% 1000 ML INJ 1,000 ML IV SCH ×2 (03:45→10:25)
[2017-03-28 04:00] VITALS: BP 138/91; PULSE 72; RESP 18; TEMP 97; O2SAT 98
[2017-03-28] MEDS: THIAMINE HCL 100 MG TAB PO SCH (07:50)
[2017-03-28] MEDS: HYDROmorphone HCL PF 1 MG/ML VIAL IV PUSH PRN (07:50)
[2017-03-28] MEDS: PANTOPRAZOLE SOD 40 MG DELAYED RELEASE TAB PO SCH (07:50)
[2017-03-28] MEDS: SODIUM CHLORIDE 0.9% FLUSH 10 ML FLUSH IV FLUSH SCH (07:56)
[2017-03-28 08:00] VITALS: BP 122/90; PULSE 81; RESP 20; TEMP 96.3; O2SAT 95
[2017-03-28] MEDS: ONDANSETRON HCL 4 MG/2 ML VIAL IVP PRN (09:08)
--- NOTE | 2017-03-28 10:08 | HHI.PR ---
Subjective Remarks Follow-up acute recurrent pancreatitis 03/27/17-patient seen and examined, complains of mid epigastric and back pain 03/28/17-patient and examined, still has some abdominal pain with lipase now down to 238. complains of nausea Objective Vitals Vital Signs Date Time Temp Pulse Resp B/P Pulse Ox O2 Delivery O2 Flow Rate FiO2 03/28/17 08:00 96.3 81 20 122/90 95 03/28/17 04:00 97.0 72 18 138/91 98 03/28/17 00:00 96.8 85 20 123/91 95 03/27/17 21:00 18 03/27/17 20:00 96.8 85 20 123/91 95 03/27/17 16:00 98.1 75 18 148/102 95 03/27/17 12:00 98.4 86 19 142/108 98 I/O 03/27/17 03/27/17 03/27/17 03/28/17 03/28/17 03/28/17 07:00 15:00 23:00 07:00 15:00 23:00 Intake Total 240 ml 0 ml Output Total 1400 ml 400 ml Balance -1400 ml -160 ml 0 ml Intake Oral 240 ml IV Total 0 ml Output Urine Total 1400 ml 400 ml # Voids 4 # Bowel Movements 0 1 1 Result Diagram: 03/27/17 0727 03/27/17 0727 Imaging Last Impressions Abdomen/Pelvis CT 03/26/17 0000 Signed Impressions: Service Date/Time: Sunday, March 26, 2017 20:07 - CONCLUSION: 1. Inflammatory and edematous changes around the pancreas characteristic of acute pancreatitis without evidence for pseudocyst. The splenic vein and portal vein patent. Mild fatty liver. Du Nieves MD Objective Remarks GENERAL: NAD SKIN: Warm and dry. HEAD: Normocephalic. EYES: No scleral icterus. No injection or drainage. NECK: Supple, trachea midline. No JVD or lymphadenopathy. CARDIOVASCULAR: Regular rate and rhythm without murmurs, gallops, or rubs. RESPIRATORY: Breath sounds equal bilaterally. No accessory muscle use. GASTROINTESTINAL: Abdomen soft, mildly tender, nondistended. MUSCULOSKELETAL: No cyanosis, or edema. BACK: Nontender without obvious deformity. No CVA tenderness. A/P Problem List: (1) Recurrent acute pancreatitis ICD Code: K85.90 Status: Acute (2) Alcohol dependence ICD Code: F10.20 Status: Acute Assessment and Plan 51-year-old man with Recurrent Acute Pancreatitis -CT abdomen reviewed shows acute pancreatis without evidence of pseudocyst. Mild fatty liver. -Cont IVF -Continue to monitor lipase, LIPASE NOW 238 -Pain management with IV Dilaudid -ADAT HTN, chronic -Clonidine when necessary Etoh Abuse/ Tobacco abuse -Ativan for withdrawals -Thiamine Daily -CIWA protocol DVT prophylaxis: SCDs GI prophylaxis: Protonix Larry Horvath MD Mar 28, 2017 10:08
[2017-03-28] MEDS ORDERED: GNP100TA3 PO (10:16)
[2017-03-28] MEDS ORDERED: PANT40TA3 PO (10:16)
[2017-03-28] MEDS ORDERED: ZOFR4TAB3 SL (10:16)
--- NOTE | 2017-03-28 10:19 | HHI.DS ---
Discharge Summary Admission Date Mar 26, 2017 at 19:27 Discharge Date: Mar 28, 2017 Admitting Diagnosis Acute pancreatitis (1) Recurrent acute pancreatitis ICD Code: K85.90 (2) Alcohol dependence ICD Code: F10.20 Procedures none Brief History - From Admission Written by DOUGLAS Campbell acting as scribe for [Sanjana] on 03/27/17 at 03: 03. 51 y/o with a history of ETOH abuse, HTN, TB, Hep B &C, Cirrhosis, COPD, and gastric ulcers presented to the ED with complaints of RUQ abdominal pain for 2 days with associated nausea and vomiting. He states the vomit was red in color but he was taking cough medicine that was red prior. He states he is trying to quit drinking but 2 days ago he had a few drinks and then his pain started. Denies any black colored stool or diarrhea. He is also complaining of having the shacks. He does have HTN but he does not take any medication, he was taking amlodipine but it made him shack and feel bad. Denies any chest pain, sob, fever or chills. CBC/BMP: 03/27/17 0727 03/27/17 0727 Significant Findings Laboratory Tests Test 03/26/17 03/27/17 16:11 07:27 Hemoglobin 11.9 GM/DL 12.1 GM/DL (13.0-17.0) (13.0-17.0) Hematocrit 38.7 % 38.3 % (39.0-51.0) (39.0-51.0) Mean Corpuscular Hemoglobin 24.8 PG 25.2 PG (27.0-34.0) (27.0-34.0) Mean Corpuscular Hemoglobin 30.7 % 31.5 % Concent (32.0-36.0) (32.0-36.0) Red Cell Distribution Width 19.6 % 19.6 % (11.6-17.2) (11.6-17.2) Platelet Count 116 TH/MM3 116 TH/MM3 (150-450) (150-450) Blood Urea Nitrogen 6 MG/DL (7-18) 6 MG/DL (7-18) Total Bilirubin 1.5 MG/DL 1.8 MG/DL (0.2-1.0) (0.2-1.0) Aspartate Amino Transf 93 U/L (15-37) 81 U/L (15-37) (AST/SGOT) Lipase 1985 U/L 515 U/L (73-393) (73-393) Eosinophils (%) (Auto) 4.6 % (0.0-4.0) Prothrombin Time 12.0 SEC (9.8-11.6) Sodium Level 135 MEQ/L (136-145) Potassium Level 3.2 MEQ/L (3.5-5.1) Creatinine 0.53 MG/DL (0.60-1.30) PE at Discharge GENERAL: NAD SKIN: Warm and dry. HEAD: Normocephalic. EYES: No scleral icterus. No injection or drainage. NECK: Supple, trachea midline. No JVD or lymphadenopathy. CARDIOVASCULAR: Regular rate and rhythm without murmurs, gallops, or rubs. RESPIRATORY: Breath sounds equal bilaterally. No accessory muscle use. GASTROINTESTINAL: Abdomen soft, mildly tender, nondistended. MUSCULOSKELETAL: No cyanosis, or edema. BACK: Nontender without obvious deformity. No CVA tenderness. Hospital Course Patient admitted secondary to recurrent acute pancreatitis for which he was started on aggressive IV fluid hydration with pain management along with monitoring of his lipase. His diet was advanced accordingly as patient's condition improved. DVT and GI prophylaxis was provided. Alcohol cessation was strongly recommended and stressed out to patient. Prior to discharge, vitals remained stable Pt Condition on Discharge: Stable Discharge Disposition: Discharge Home Discharge Time: <= 30 minutes Discharge Instructions DIET: Follow Instructions for: Heart Healthy Diet Activities you can perform: Regular-No Restrictions Follow up Referrals: PCP Follow-up - 1 Week New Medications: Ondansetron Odt (Zofran Odt) 4 Mg Tab 4 MG SL Q12HR PRN Nausea/Vomiting #10 Ref 0 TAB Ketorolac (Ketorolac) 10 Mg Tab 10 MG PO Q6H PRN pain 10 #20 TAB Pantoprazole (Pantoprazole) 40 Mg Tab 40 MG PO Q12HR Manage Heartburn #30 TAB Thiamine HCl (Gnp Vitamin B-1) 100 Mg Tab 100 MG PO DAILY Alcohol Detox #30 TAB Continued Medications: Pantoprazole (Protonix) 40 Mg Tab 40 MG PO BID Ulcer Prevention #30 Ref 0 TAB Sucralfate (Sucralfate) 1 Gm Tab 1 GM PO QID on empty stomach Duodenal ulcer #120 Ref 5 TAB Discontinued Medications: Oxycodone (Oxycodone) 15 Mg Tab 15 MG PO Q8HR Pain Management Ref 0 TAB Larry Horvath MD Mar 28, 2017 10:19
[2017-03-28] MEDS ORDERED: KETO10 PO (10:20)
[2017-03-28] MEDS ORDERED: KETOROLAC TROMETHAMINE 10 MG TAB PO PRN (10:30)
== END 2017-03-28 11:35 | disposition home or self-care (01) | DRG 439 ==
LOC: NEPC 15:30 → NEDA 19:27 → N05A 22:10
PROVIDERS: ADMIT Hospitalist; ATTEND Hospitalist
DX: K85.90 Acute pancreatitis without necrosis or infection, unspecified (principal); B19.10 Unspecified viral hepatitis B without hepatic coma; K74.60 Unspecified cirrhosis of liver; B19.20 Unspecified viral hepatitis C without hepatic coma; K86.1 Other chronic pancreatitis; F41.9 Anxiety disorder, unspecified; F32.9 Major depressive disorder, single episode, unspecified; M06.9 Rheumatoid arthritis, unspecified; J44.9 Chronic obstructive pulmonary disease, unspecified; K21.9 Gastro-esophageal reflux disease without esophagitis; I10 Essential (primary) hypertension; G89.29 Other chronic pain; M54.9 Dorsalgia, unspecified; F17.210 Nicotine dependence, cigarettes, uncomplicated; Z87.11 Personal history of peptic ulcer disease; Z86.11 Personal history of tuberculosis; F10.20 Alcohol dependence, uncomplicated; K76.0 Fatty (change of) liver, not elsewhere classified
CPT/HCPCS: 74177; 76937; 80053; 80307; 81001; 83690; 85025; 85610; 85730; 96374; 96375; J1170; J2060; J2270; J2405; J7030; Q9967

== ENCOUNTER 2017-04-13 08:14 | Emergency (ER) | payer OTHER ==
[~2017-04-13] VITALS: Ht 198.1 cm; Wt 90.0 kg
[~2017-04-13 08:14] MED LIST changes: +GNP100TA3 PO; +KETO10 PO; -OXYC15TA PO; +PANT40TA3 PO; +ZOFR4TAB3 SL
[2017-04-13 08:17] VITALS: BP 176/114; PULSE 106; RESP 16; TEMP 98.4; O2SAT 98
[2017-04-13] MEDS ORDERED: SODIUM CHLOR 0.9% 1000 ML INJ 1,000 ML IV SCH (08:26)
[2017-04-13 08:28] VITALS: O2SAT 98
[2017-04-13] MEDS ORDERED: SODIUM CHLORIDE 0.9% FLUSH 10 ML FLUSH IV FLUSH PRN (08:30)
[2017-04-13] MEDS ORDERED: ONDANSETRON HCL 4 MG/2 ML VIAL IVP ONE (08:30)
[2017-04-13] MEDS ORDERED: LORazepam 2 MG/ML VIAL IV PUSH ONE (08:30)
--- NOTE | 2017-04-13 08:35 | PD ---
HPI Chief Complaint: Abdominal Pain Time Seen by Provider: 08:21 Travel History International Travel<30 days: No Contact w/Intl Traveler<30days: No Traveled to known affect area: No History of Present Illness HPI Patient is a 51-year-old male with history of alcohol abuse, hepatitis B, hepatitis C, liver cirrhosis, COPD, cirrhosis, ulcers, presents to emergency room complaints of abdominal pain with nausea and vomiting since last night. Patient reports that he is an alcoholic, reports that his last drink was yesterday afternoon. Patient reports that since yesterday, he has been having epigastric pain, he has had history of pancreatitis in the past and having the same pain as when he was diagnosed with pancreatitis. Patient reports that his chest hurts every time he vomits. Patient with no fevers or chills, denies any cough or congestion. Patient with no other complaints. PFSH Past Medical History Hx Anticoagulant Therapy: No Arthritis: Yes (RA) Asthma: No Blood Disorders: Yes (HEPATITIS B AND C NO TREATMENT) Anxiety: Yes Depression: Yes Heart Rhythm Problems: No Cancer: No Cardiovascular Problems: Yes (HTN) High Cholesterol: No Chemotherapy: No Chest Pain: Yes (PALPITATIONS) Congestive Heart Failure: No Cirrhosis: Yes COPD: Yes Cerebrovascular Accident: No Diabetes: No Diminished Hearing: No Endocrine: No Gastrointestinal Disorders: Yes (PANCREATITIS) GERD: Yes Genitourinary: No Headaches: Yes Hepatitis: Yes (B & C) Hiatal Hernia: No Heparin Induced Thrombocytopen: No Herniated Disk: Yes Hypertension: Yes Immune Disorder: No Implanted Vascular Access Dvce: Yes Insomnia: Yes Kidney Stones: No Musculoskeletal: Yes (CHRONIC BACK PAIN) Neurologic: Yes Psychiatric: Yes Reproductive: Yes Respiratory: Yes (COPD / TB) Integumentary: Yes (HX IV DRUG USE) Immunizations Current: Yes Migraines: Yes Pancreatitis: Yes Pneumonia: Yes Radiation Therapy: No Renal Failure: No Seizures: No Sickle Cell Disease: No Sleep Apnea: No Thyroid Disease: No Ulcer: Yes Tetanus Vaccination: < 5 Years Influenza Vaccination: Yes PNEUMOCCOCAL Vaccine (Year): 2 Past Surgical History Abdominal Surgery: Yes (LIVER BIOPSY) AICD: No Arteriovenous Shunt: No Body Medical Devices: STEEL PLATE IN RIGHT ANKLE Cardiac Surgery: No Ear Surgery: No Endocrine Surgery: Yes (LIVER BIOPSY) Eye Surgery: No Genitourinary Surgery: No Gynecologic Surgery: No Hysterectomy: No Insulin Pump: No Joint Replacement: No Neurologic Surgery: No Oral Surgery: No Pacemaker: No Thoracic Surgery: Yes (CHEST TUBE- R/O TB 2009) Tonsillectomy: Yes Other Surgery: Yes (RIGHT ANKLE PLATE/SCREWS) Social History Alcohol Use: Yes (1/5 VODKA DAILY) Tobacco Use: Yes (1/2 PPD) Substance Use: No Allergies-Medications (Allergen,Severity, Reaction): Coded Allergies: Prednisone (Verified Allergy, Severe, Rash, 04/13/17) *MDRO Multi-Drug Resistant Organism (Verified Adverse Reaction, Unknown, Cleared, 04/13/17) MRSA arm wound 2008 MRSA PCR Screen negative 01/06/15 and 05/30/15. Cleared by Infection Control. Reported Meds & Prescriptions Reported Meds & Active Scripts Active Protonix (Pantoprazole Sodium) 40 Mg Tab 40 Mg PO DAILY Zofran (Ondansetron HCl) 4 Mg Tab 4 Mg PO Q6HR PRN Pantoprazole (Pantoprazole Sodium) 40 Mg Tab 40 Mg PO Q12HR Gnp Vitamin B-1 (Thiamine HCl) 100 Mg Tab 100 Mg PO DAILY Sucralfate 1 Gm Tab 1 Gm PO QID on empty stomach Review of Systems General / Constitutional: No: Fever Eyes: No: Visual changes HENT: No: Headaches Cardiovascular: Positive: Chest Pain or Discomfort Respiratory: Positive: Cough, No: Shortness of Breath Gastrointestinal: Positive: Nausea, Vomiting, Abdominal Pain Genitourinary: No: Dysuria Musculoskeletal: No: Pain Skin: No Rash Neurologic: No: Weakness Psychiatric: Positive: Substance Abuse (alcohol abuse), No: Depression Endocrine: No: Polydipsia Hematologic/Lymphatic: No: Easy Bruising Physical Exam Narrative GENERAL: Moderate distress SKIN: Focused skin assessment warm/dry. HEAD: Atraumatic. Normocephalic. EYES: Pupils equal and round. No scleral icterus. No injection or drainage. ENT: No nasal bleeding or discharge. Mucous membranes pink and moist. NECK: Trachea midline. No JVD. CARDIOVASCULAR: Regular rate and rhythm. No murmur appreciated. RESPIRATORY: No accessory muscle use. Clear to auscultation. Breath sounds equal bilaterally. GASTROINTESTINAL: Abdomen soft, increased tenderness to epigastrium with guarding on exam MUSCULOSKELETAL: No obvious deformities. No clubbing. No cyanosis. No edema. NEUROLOGICAL: Awake and alert. No obvious cranial nerve deficits. Motor grossly within normal limits. Normal speech. PSYCHIATRIC: Appropriate mood and affect; insight and judgment normal. Data Data Last Documented VS Vital Signs Date Time Temp Pulse Resp B/P Pulse Ox O2 Delivery O2 Flow Rate FiO2 04/13/17 10:46 93 18 148/98 97 Room Air 04/13/17 08:17 98.4 Orders Urinalysis - C+S If Indicated (04/13/17 08:20) Complete Blood Count With Diff (04/13/17 08:26) Comprehensive Metabolic Panel (04/13/17 08:26) Lipase (04/13/17 08:26) Prothrombin Time / Inr (Pt) (04/13/17 08:26) Act Partial Throm Time (Ptt) (04/13/17 08:26) Ct Abd/Pel W Iv Contrast(Rout) (04/13/17 08:26) Iv Access Insert/Monitor (04/13/17 08:26) Ecg Monitoring (04/13/17 08:26) Oximetry (04/13/17 08:26) NPO (04/13/17 08:26) Ondansetron Inj (Zofran Inj) (04/13/17 08:30) Sodium Chlor 0.9% 1000 Ml Inj (Ns 1000 M (04/13/17 08:26) Sodium Chloride 0.9% Flush (Ns Flush) (04/13/17 08:30) Electrocardiogram (04/13/17 08:26) Ckmb (Isoenzyme) Profile (04/13/17 08:26) Troponin I (04/13/17 08:26) Drug Screen, Random Urine (04/13/17 08:26) Alcohol (Ethanol) (04/13/17 08:26) Lorazepam Inj (Ativan Inj) (04/13/17 08:30) CKMB (04/13/17 08:45) CKMB% (04/13/17 08:45) Iohexol 350 Inj (Omnipaque 350 Inj) (04/13/17 09:31) Ketorolac Inj (Toradol Inj) (04/13/17 10:00) Chlorpromazine Inj (Thorazine Inj) (04/13/17 10:00) Chlorpromazine Inj (Thorazine Inj) (04/13/17 10:15) Labs Laboratory Tests Test 04/13/17 04/13/17 08:45 09:50 White Blood Count 9.5 TH/MM3 Red Blood Count 5.09 MIL/MM3 Hemoglobin 13.0 GM/DL Hematocrit 41.3 % Mean Corpuscular Volume 81.1 FL Mean Corpuscular Hemoglobin 25.5 PG Mean Corpuscular Hemoglobin 31.4 % Concent Red Cell Distribution Width 19.8 % Platelet Count 207 TH/MM3 Mean Platelet Volume 7.8 FL Neutrophils (%) (Auto) % Lymphocytes (%) (Auto) % Monocytes (%) (Auto) % Eosinophils (%) (Auto) % Basophils (%) (Auto) % Neutrophils # (Auto) TH/MM3 Lymphocytes # (Auto) TH/MM3 Monocytes # (Auto) TH/MM3 Eosinophils # (Auto) TH/MM3 Basophils # (Auto) TH/MM3 CBC Comment AUTO DIFF Differential Total Cells 100 Counted Neutrophils % (Manual) 68 % Band Neutrophils % 1 % Lymphocytes % 28 % Monocytes % 2 % Basophils % 1 % Neutrophils # (Manual) 6.6 TH/MM3 Differential Comment FINAL DIFF MANUAL Platelet Estimate NORMAL Platelet Morphology Comment NORMAL Red Cell Morphology Comment NORMAL Prothrombin Time 11.0 SEC Prothromb Time International 1.0 RATIO Ratio Activated Partial 26.2 SEC Thromboplast Time Sodium Level 140 MEQ/L Potassium Level 4.1 MEQ/L Chloride Level 105 MEQ/L Carbon Dioxide Level 22.5 MEQ/L Anion Gap 13 MEQ/L Blood Urea Nitrogen 9 MG/DL Creatinine 0.67 MG/DL Estimat Glomerular Filtration 125 ML/MIN Rate Random Glucose 111 MG/DL Calcium Level 8.9 MG/DL Total Bilirubin 0.6 MG/DL Aspartate Amino Transf 121 U/L (AST/SGOT) Alanine Aminotransferase 32 U/L (ALT/SGPT) Alkaline Phosphatase 88 U/L Total Creatine Kinase 135 U/L Creatine Kinase MB 1.8 NG/ML Troponin I LESS THAN 0.02 NG/ML Total Protein 8.3 GM/DL Albumin 3.8 GM/DL Lipase 201 U/L Ethyl Alcohol Level 81 MG/DL Urine Collection Type CLEAN CATCH Urine Color YELLOW Urine Turbidity CLEAR Urine pH 7.0 Urine Specific Brea 1.028 Urine Protein NEG mg/dL Urine Glucose (UA) NEG mg/dL Urine Ketones NEG mg/dL Urine Occult Blood NEG Urine Nitrite NEG Urine Bilirubin NEG Urine Leukocyte Esterase NEG Urine Squamous Epithelial 0-5 /hpf Cells Urine Amorphous Sediment FEW Microscopic Urinalysis Comment CULT NOT INDICATED Urine Collection Time 0950 Urine Opiates Screen NEG Urine Barbiturates Screen NEG Urine Amphetamines Screen NEG Urine Benzodiazepines Screen POS Urine Cocaine Screen NEG Urine Cannabinoids Screen NEG MDM Medical Decision Making Medical Screen Exam Complete: Yes Emergency Medical Condition: Yes Interpretation(s) EKG at 0901: NSR at 91bpm, qt/qtc: 352/400, no acute st or t wave changes, normal axis Vital Signs Date Time Temp Pulse Resp B/P Pulse Ox O2 Delivery O2 Flow Rate FiO2 04/13/17 08:17 98.4 106 16 176/114 98 Differential Diagnosis Differential includes pancreatitis, liver cirrhosis, electrolyte abnormality, alcohol withdrawal, ACS, arrhythmia, dehydration, gastritis, gastroenteritis Narrative Course 51-year-old male who presents to emergency room with complaints of abdominal pain. Patient has a strong history of alcohol abuse with liver cirrhosis, reports that he tried to stop drinking alcohol yesterday afternoon as he has been having epigastric abdominal pain. Reports pain to his epigastrium with associated nausea and vomiting, persistent that symptoms feel similar to when he was diagnosed with pancreatitis earlier this month. EKG ordered. Patient placed on a equipment monitor phototypesetting upon arrival to emergency room. Lab work including liver function tests and lipase ordered. CT of abdomen and pelvis ordered for further evaluation of abdominal pain. Patient was given a dose of Zofran, IV fluids, and ativan for possible alcohol withdrawal symptoms Vital Signs Date Time Temp Pulse Resp B/P Pulse Ox O2 Delivery O2 Flow Rate FiO2 04/13/17 08:28 98 Room Air 04/13/17 08:17 98.4 106 16 176/114 98 Laboratory Tests Test 04/13/17 08:45 White Blood Count 9.5 TH/MM3 (4.0-11.0) Red Blood Count 5.09 MIL/MM3 (4.50-5.90) Hemoglobin 13.0 GM/DL (13.0-17.0) Hematocrit 41.3 % (39.0-51.0) Mean Corpuscular Volume 81.1 FL (80.0-100.0) Mean Corpuscular Hemoglobin 25.5 PG (27.0-34.0) Mean Corpuscular Hemoglobin 31.4 % Concent (32.0-36.0) Red Cell Distribution Width 19.8 % (11.6-17.2) Platelet Count 207 TH/MM3 (150-450) Mean Platelet Volume 7.8 FL (7.0-11.0) Neutrophils (%) (Auto) % (16.0-70.0) Lymphocytes (%) (Auto) % (9.0-44.0) Monocytes (%) (Auto) % (0.0-8.0) Eosinophils (%) (Auto) % (0.0-4.0) Basophils (%) (Auto) % (0.0-2.0) Neutrophils # (Auto) TH/MM3 (1.8-7.7) Lymphocytes # (Auto) TH/MM3 (1.0-4.8) Monocytes # (Auto) TH/MM3 (0-0.9) Eosinophils # (Auto) TH/MM3 (0-0.4) Basophils # (Auto) TH/MM3 (0-0.2) CBC Comment AUTO DIFF Differential Total Cells 100 Counted Neutrophils % (Manual) 68 % (16-70) Band Neutrophils % 1 % (0-6) Lymphocytes % 28 % (9-44) Monocytes % 2 % (0-8) Basophils % 1 % (0-2) Neutrophils # (Manual) 6.6 TH/MM3 (1.8-7.7) Differential Comment FINAL DIFF MANUAL Platelet Estimate NORMAL (NORMAL) Platelet Morphology Comment NORMAL (NORMAL) Red Cell Morphology Comment NORMAL (NORMAL) Prothrombin Time 11.0 SEC (9.8-11.6) Prothromb Time International 1.0 RATIO Ratio Activated Partial 26.2 SEC Thromboplast Time (24.3-30.1) Sodium Level 140 MEQ/L (136-145) Potassium Level 4.1 MEQ/L (3.5-5.1) Chloride Level 105 MEQ/L (98-107) Carbon Dioxide Level 22.5 MEQ/L (21.0-32.0) Anion Gap 13 MEQ/L (5-15) Blood Urea Nitrogen 9 MG/DL (7-18) Creatinine 0.67 MG/DL (0.60-1.30) Estimat Glomerular Filtration 125 ML/MIN Rate (>89) Random Glucose 111 MG/DL (74-106) Calcium Level 8.9 MG/DL (8.5-10.1) Total Bilirubin 0.6 MG/DL (0.2-1.0) Aspartate Amino Transf 121 U/L (15-37) (AST/SGOT) Alanine Aminotransferase 32 U/L (12-78) (ALT/SGPT) Alkaline Phosphatase 88 U/L (45-117) Total Creatine Kinase 135 U/L (39-308) Creatine Kinase MB 1.8 NG/ML (0.5-3.6) Troponin I LESS THAN 0.02 NG/ML (0.02-0.05) Total Protein 8.3 GM/DL (6.4-8.2) Albumin 3.8 GM/DL (3.4-5.0) Lipase 201 U/L (73-393) Ethyl Alcohol Level 81 MG/DL (0-5) I reviewed all labs and all studies with patient in detail. Understands importance of drinking cessation. Patient with most likely gastritis versus gastroenteritis from alcohol abuse and retching. Patient will follow-up with his GI doctor as well as primary care doctor. Patient will return to the emergency as needed. Signs and symptoms of acute abdomen was reviewed with patient, he will return to emergency room if he develops any symptoms. 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
[2017-04-13 08:56] LABS: HEMATOCRIT 41.3 % (39.0-51.0); MEAN CELL VOLUME 81.1 FL (80.0-100.0); MEAN CORPUSCULAR HEMOGLOBIN 25.5 PG (27.0-34.0); MEAN CORPUSCULAR HGB CONC 31.4 % (32.0-36.0); PLATELET COUNT 207 TH/MM3 (150-450); RED BLOOD COUNT 5.09 MIL/MM3 (4.50-5.90); RED CELL DISTRIBUTION WIDTH 19.8 % (11.6-17.2); WHITE BLOOD COUNT 9.5 TH/MM3 (4.0-11.0)
[2017-04-13 09:00] LABS: CHLORIDE 105 MEQ/L (98-107); SODIUM (NA) 140 MEQ/L (136-145)
[2017-04-13 09:04] LABS: ANION GAP 13 MEQ/L (5-15); APTT (PATIENT) 26.2 SEC (24.3-30.1); BICARBONATE 22.5 MEQ/L (21.0-32.0); BLOOD UREA NITROGEN 9 MG/DL (7-18); POTASSIUM 4.1 MEQ/L (3.5-5.1)
[2017-04-13 09:07] LABS: ALT (GPT) 32 U/L (12-78); AST (GOT) 121 U/L (15-37); GLOMERULAR FILTRATION RATE 125 ML/MIN (>89)
[2017-04-13 09:08] LABS: TOTAL BILIRUBIN ADULT 0.6 MG/DL (0.2-1.0)
[2017-04-13 09:10] LABS: ALKALINE PHOSPHATASE 88 U/L (45-117); CREATINE KINASE 135 U/L (39-308)
[2017-04-13 09:16] LABS: HEMO FLAGS AUTO DIFF
[2017-04-13 09:18] LABS: BANDS 1 % (0-6); BASOPHILS 1 % (0-2); NEUTROPHIL # MANUAL DIFF 6.6 TH/MM3 (1.8-7.7); POLYS (SEG NEUTROPHILS) 68 % (16-70); WBC DIFF SAMPLE 100
[2017-04-13 09:19] LABS: PLATELET ESTIMATE SMEAR NORMAL (NORMAL); PLATELET MORPHOLOGY NORMAL (NORMAL); SCAN/DIFF FINAL DIFF MANUAL
[2017-04-13 09:26] LABS: CKMB 1.8 NG/ML (0.5-3.6)
[2017-04-13] MEDS ORDERED: IOHEXOL 350 MG/ML 10 ML VIAL (for RAD DIAG) IV ONE (09:31)
[2017-04-13] MEDS ORDERED: ZOFR4TAB PO (09:49)
[2017-04-13] MEDS ORDERED: PROT40TA PO (09:49)
--- NOTE | 2017-04-13 09:55 | RADRPT ---
EXAM DATE/TIME: 04/13/2017 09:16 [facility] COMPARISON: CT ABDOMEN & PELVIS W CONTRAST, November 01, 2015, 1:38. CT ABDOMEN & PELVIS W CONTRAST, March 26, 2017, 20:07. INDICATIONS : Epigastric pain since last night. IV CONTRAST: 95 cc Omnipaque 350 (iohexol) IV ORAL CONTRAST: No oral contrast ingested. RADIATION DOSE: 15.44 CTDIvol (mGy) MEDICAL HISTORY : Chronic obstructive pulmonary disease. Pancreatitis. Gastroesophageal reflux di sease.Hypertension SURGICAL HISTORY : None. ENCOUNTER: Initial ACUITY: 2 days PAIN SCALE: 6/10 LOCATION: upper quadrant TECHNIQUE: Volumetric scanning of the abdomen and pelvis was performed. Using automated exposure control and adjustment of the mA and/or kV according to patient size, radiation dose was kept as low as reasonably achievable to obtain optimal diagnostic quality images. DICOM format image data is av ailable electronically for review and comparison. FINDINGS: CT Abdomen: The spleen, pancreas, kidneys, adrenals are unremarkable. There is no evidence for any ap preciable pathological adenopathy, free fluid, or bowel obstruction. The liver is fatty without foca l lesions or technique. CT pelvis: There is no evidence for mass, abscess formation, or any significant adenopathy within the pelvis. The prostate gland is inhomogeneous and measures 3.9 x 4.4 cm in AP and transverse diameters and nonspecific. There are scattered diverticuli mainly in the sigmoid colon without definite signs of diverticulitis. There are areas of irregular sclerosis involving the mid sacrum chronic and benign in appearance and not changed. CONCLUSION: Slight fatty liver. Everton Rojas MD on April 13, 2017 at 9:50 Board Certified Radiologist. This report was verified electronically.
[2017-04-13] MEDS ORDERED: KETOROLAC TROMETHAMINE 30 MG/ML (IVP) VIAL IV PUSH ONE (10:00)
[2017-04-13] MEDS ORDERED: chlorproMAZINE INJ 25 MG in SODIUM CHLORID 0.9% 500 ML INJ 500 ML IV ONE ×2 (10:00→10:15)
[2017-04-13 10:07] LABS: BLOOD, URINE NEG (NEG); GLUCOSE,URINE NEG (NEG); KETONE, URINE NEG (NEG); NITRITE,URINE NEG (NEG)
[2017-04-13 10:12] LABS: CULTURE IF INDICATED CULT NOT INDICATED; METHOD OF COLLECTION CLEAN CATCH; URINE COLOR YELLOW (YELLW/STRAW)
[2017-04-13 10:13] LABS: COMMENT (UR) CULT NOT INDICATED; SQUAMOUS EPITHELIAL CELL URINE 0-5 /hpf (0-5)
[2017-04-13 10:25] LABS: AMPHETAMINE, URINE NEG (NEG)
[2017-04-13 10:26] LABS: BARBITURATES, URINE NEG (NEG)
[2017-04-13 10:31] LABS: COCAINE, URINE NEG (NEG)
[2017-04-13 10:46] VITALS: BP 148/98; PULSE 93; RESP 18; O2SAT 97
[2017-04-13 12:03] VITALS: BP 151/85; PULSE 111; RESP 18; TEMP 98.5; O2SAT 96
--- NOTE | 2017-04-13 18:28 | EKG ---
Date Performed: 04/13/2017 Time Performed: 09:01:06 PTAGE: 51 years EKG: Sinus rhythm NORMAL ECG PREVIOUS TRACING : 02/15/2017 09.38 Compared to prior tracing no significant change DOCTOR: David Roper Interpretating Date/Time 04/13/2017 18:26:37
[2017-04-14] MEDS ORDERED: DICY10 PO (00:08)
[2017-04-14] MEDS ORDERED: ZOFR4TAB3 SL (00:08)
[2017-04-14] MEDS ORDERED: CHLO25CA9 PO (00:08)
[2017-04-14] MEDS ORDERED: CLON0.1T PO (00:08)
== END 2017-04-13 12:08 | disposition home or self-care (01) ==
LOC: PHED 08:14
DX: R10.13 Epigastric pain (principal); R11.2 Nausea with vomiting, unspecified; F10.20 Alcohol dependence, uncomplicated; K21.0 Gastro-esophageal reflux disease with esophagitis; K29.20 Alcoholic gastritis without bleeding; R07.9 Chest pain, unspecified; I10 Essential (primary) hypertension; F17.200 Nicotine dependence, unspecified, uncomplicated; Z79.899 Other long term (current) drug therapy; Z87.19 Personal history of other diseases of the digestive system; Z87.09 Personal history of other diseases of the respiratory system; Z87.39 Personal history of other diseases of the musculoskeletal system and connective tissue; Z86.59 Personal history of other mental and behavioral disorders; Z86.79 Personal history of other diseases of the circulatory system; Z86.69 Personal history of other diseases of the nervous system and sense organs
CPT/HCPCS: 74177; 80053; 80307; 81001; 82550; 82552; 83690; 84484; 85007; 85027; 85610; 85730; 93005; 96361; 96365; 96375; 99285; J1885; J2060; J2405; J3230; J7030; J7040; Q9967

== ENCOUNTER 2017-04-13 20:48 | Emergency (ER) | payer OTHER ==
[~2017-04-13] VITALS: Ht 198.1 cm; Wt 95.0 kg
[~2017-04-13 20:48] MED LIST changes: +ZOFR4TAB PO
[2017-04-13 21:35] VITALS: PULSE 98; RESP 20; TEMP 98.3; O2SAT 98
[2017-04-13] MEDS ORDERED: SODIUM CHLOR 0.9% 1000 ML INJ 1,000 ML IV SCH (22:23)
--- NOTE | 2017-04-13 22:29 | PD ---
HPI Chief Complaint: Abdominal Pain Time Seen by Provider: 22:24 Travel History International Travel<30 days: No Contact w/Intl Traveler<30days: No Traveled to known affect area: No History of Present Illness HPI Patient comes back to the emergency department complaining of continued abdominal pain, vomiting, and diarrhea. Patient is going on intermittently since he started to detox from alcohol again. Patient states he tried going to [facility], but was told they have no beds. Patient states he is unable to afford Zofran that was prescribed to him earlier today. Patient denies any symptoms. Patient reports cramping pain throughout the abdomen. Denies anything making it better or worse. Denies any blood in the vomit or diarrhea. Denies any dark stool. Reports vomiting is nonbilious. Denies any chest pain, shortness of breath, fevers, back pain, or loss/change in bladder. PFSH Past Medical History Hx Anticoagulant Therapy: No Arthritis: Yes (RA) Asthma: No Blood Disorders: Yes (HEPATITIS B AND C NO TREATMENT) Anxiety: Yes Depression: Yes Heart Rhythm Problems: No Cancer: No Cardiovascular Problems: Yes (HTN) High Cholesterol: No Chemotherapy: No Chest Pain: Yes (PALPITATIONS) Congestive Heart Failure: No Cirrhosis: Yes COPD: Yes Cerebrovascular Accident: No Diabetes: No Diminished Hearing: No Endocrine: No Gastrointestinal Disorders: Yes (PANCREATITIS) GERD: Yes Genitourinary: No Headaches: Yes Hepatitis: Yes (B & C) Hiatal Hernia: No Heparin Induced Thrombocytopen: No Herniated Disk: Yes Hypertension: Yes Immune Disorder: No Implanted Vascular Access Dvce: Yes Insomnia: Yes Kidney Stones: No Musculoskeletal: Yes (CHRONIC BACK PAIN) Neurologic: Yes Psychiatric: Yes Reproductive: Yes Respiratory: Yes (COPD / TB) Integumentary: Yes (HX IV DRUG USE) Immunizations Current: Yes Migraines: Yes Pancreatitis: Yes Pneumonia: Yes Radiation Therapy: No Renal Failure: No Seizures: No Sickle Cell Disease: No Sleep Apnea: No Thyroid Disease: No Ulcer: Yes PNEUMOCCOCAL Vaccine (Year): 2 Past Surgical History Abdominal Surgery: Yes (LIVER BIOPSY) AICD: No Arteriovenous Shunt: No Body Medical Devices: STEEL PLATE IN RIGHT ANKLE Cardiac Surgery: No Ear Surgery: No Endocrine Surgery: Yes (LIVER BIOPSY) Eye Surgery: No Genitourinary Surgery: No Gynecologic Surgery: No Hysterectomy: No Insulin Pump: No Joint Replacement: No Neurologic Surgery: No Oral Surgery: No Pacemaker: No Thoracic Surgery: Yes (CHEST TUBE- R/O TB 2009) Tonsillectomy: Yes Other Surgery: Yes (RIGHT ANKLE PLATE/SCREWS) Social History Alcohol Use: Yes (1/5 VODKA DAILY) Tobacco Use: Yes (1/2 PPD) Substance Use: No Allergies-Medications (Allergen,Severity, Reaction): Coded Allergies: Prednisone (Verified Allergy, Severe, Rash, 04/13/17) *MDRO Multi-Drug Resistant Organism (Verified Adverse Reaction, Unknown, Cleared, 04/13/17) MRSA arm wound 2008 MRSA PCR Screen negative 01/06/15 and 05/30/15. Cleared by Infection Control. Reported Meds & Prescriptions Reported Meds & Active Scripts Active Bentyl (Dicyclomine HCl) 10 Mg Cap 10 Mg PO Q8HR PRN Zofran Odt (Ondansetron Odt) 4 Mg Tab 4 Mg SL Q6HR PRN Chlordiazepoxide HCl 25 Mg Capsule 25 Mg PO Q8HR PRN Clonidine (Clonidine HCl) 0.1 Mg Tab 0.1 Mg PO Q8HR PRN Protonix (Pantoprazole Sodium) 40 Mg Tab 40 Mg PO DAILY Sucralfate 1 Gm Tab 1 Gm PO QID on empty stomach Review of Systems Except as stated in HPI: all other systems reviewed are Neg Physical Exam Narrative GENERAL: Well-developed, overly nourished, in no acute distress, and non-ill appearing. SKIN: Focused skin assessment warm and dry. HEAD: Atraumatic. Normocephalic. EYES: Pupils equal and round. EOMI. No scleral icterus. No injection or drainage. ENT: No nasal bleeding or discharge. Mucous membranes pink and moist. NECK: Trachea midline. Supple. No nuclear rigidity. CARDIOVASCULAR: Regular rate and rhythm. No murmur appreciated. RESPIRATORY: No accessory muscle use. No respiratory distress. Clear to auscultation. Breath sounds equal bilaterally. GASTROINTESTINAL: Abdomen soft, nondistended, nontender, and no guarding. Hepatic and splenic margins not palpable. Normal bowel sounds 4. No pulsatile mass. MUSCULOSKELETAL: No obvious deformities. No clubbing. No cyanosis. No edema. Full range of motion. NEUROLOGICAL: Awake and alert. No obvious cranial nerve deficits. Motor grossly within normal limits. Normal speech. PSYCHIATRIC: Appropriate mood and affect; insight and judgment normal. Data Data Last Documented VS Vital Signs Date Time Temp Pulse Resp B/P Pulse Ox O2 Delivery O2 Flow Rate FiO2 04/14/17 00:05 89 16 164/98 100 04/13/17 22:48 Room Air 04/13/17 21:35 98.3 Orders Iv Access Insert/Monitor (04/13/17 22:23) Ecg Monitoring (04/13/17:23) Oximetry (04/13/17 22:23) Ondansetron Inj (Zofran Inj) (04/13/17 22:30) Sodium Chlor 0.9% 1000 Ml Inj (Ns 1000 M (04/13/17 22:23) Sodium Chloride 0.9% Flush (Ns Flush) (04/13/17 22:30) Chest, Single Ap (04/13/17 22:23) Dicyclomine (Bentyl) (04/13/17 22:30) Clonidine (Catapres) (04/13/17 22:30) Lorazepam Inj (Ativan Inj) (04/13/17 22:45) Lorazepam (Ativan) (04/13/17 23:00) Ondansetron Odt (Zofran Odt) (04/13/17 23:00) MDM Medical Decision Making Medical Screen Exam Complete: Yes Emergency Medical Condition: Yes Interpretation(s) Chest x-ray by the radiologist: No acute disease. Differential Diagnosis Chronic abdominal pain, intractable vomiting, alcohol abuse abuse, alcohol withdrawal, dehydration, other Narrative Course Patient's blood pressure reviewed and labs reviewed that were drawn just slow 12 hours ago. He do not see a need for any repeat labs at this time. We'll give the patient fluid, Ativan and clonidine for possible withdrawal symptoms. We'll monitor the patient in the ER after being medicated and then reassess. We'll obtain a chest x-ray as well secondary to reported vomiting. The patient appeared comfortable, well hydrated and the abdominal exam was unremarkable and nontender to me. There was no evidence of an acute, surgical abdomen at this time. There was no clinical evidence to support appendicitis, cholecystitis/cholelithiasis, pancreatitis, perforation of gastric ulcer, colitis, diverticulitis, bacterial peritonitis, obstruction, volvulus, hernial incarceration or strangulation at this time. There was no evidence to support vascular pathology such as AAA, mesenteric ischemia. There was also no clinical evidence by history, exam or risk factors to suggest atypical presentation of cardiac disease such as ACS, AMI or atypical angina. No evidence to suggest genitourinary etiology as well. Clinical picture was discussed with the patient , as well as plan of care. The patient was instructed to follow up with their physician. Abdominal pain warnings were discussed with the patient. The patient is to return if worsens, pain worsens or changes, develop fever, inability to tolerate fluids with or without vomiting, unable to establish follow up or as needed. The patient agrees with plan. Patient in no obvious distress upon re-evaluation. All pertinent Radiology result(s) discussed with patient. Discussed patient with Dr. Chi prior to discharge, who is in agreement with plan of care and disposition. Patient was asked if they wanted to speak to my attending, which the patient did not wish to do at this time. Any questions/concerns in reference to patient diagnosis/ condition discussed and clarified prior to patient's discharge. Reinforced sheer importance of close follow up with patient's primary physician or primary care clinic. Instructed patient to return to ED immediately, if symptoms return/ worsen. Pt showed understanding of above instructions. Further instructions and recommendations were detailed in discharge paperwork. Pt ambulated without difficulty out of ED at discharge. Diagnosis Primary Impression: Chronic abdominal pain Additional Impression: Alcoholism Referrals: [facility] Instructions: Abdominal Pain (ED), Alcohol Dependence (ED), Alcohol Withdrawal (DC), General Instructions Additional Instructions: Follow-up with your primary care physician, [facility], or other detox facility for alcohol detoxification.. Take all medication as prescribed. Return to the emergency department if symptoms get worse.s Med/Other Pt SpecificInfo: Prescription(s) given Scripts Dicyclomine (Bentyl)10 Mg Cap10 Mg PO Q8HR PRN (Bowel Management) #9 CAP Ref 0 Prov:Gonzalez Chi MD 04/14/17 Ondansetron Odt (Zofran Odt)4 Mg Tab4 Mg SL Q6HR PRN (Nausea/Vomiting) #12 TAB Ref 0 Prov:Gonzalez Chi MD 04/14/17 Chlordiazepoxide HCl 25 Mg [id number] Mg PO Q8HR PRN (WITHDRAWAL) #6 Prov:Gonzalez Chi MD 04/14/17 Clonidine 0.1 Mg Tab0.1 Mg PO Q8HR PRN (WITHDRAWAL) #7 TAB Ref 0 Prov:Gonzalez Chi MD 04/14/17 Disposition: 01 DISCHARGE HOME Condition: Stable Bernard Castaneda Apr 13, 2017 22:29
[2017-04-13] MEDS ORDERED: SODIUM CHLORIDE 0.9% FLUSH 10 ML FLUSH IV FLUSH PRN (22:30)
[2017-04-13] MEDS ORDERED: DICYCLOMINE HCL 10 MG CAP PO ONE (22:30)
[2017-04-13] MEDS ORDERED: cloNIDine HCL 0.1 MG TAB PO ONE (22:30)
[2017-04-13] MEDS ORDERED: ONDANSETRON HCL 4 MG/2 ML VIAL IVP ONE (22:30)
--- NOTE | 2017-04-13 22:39 | RADRPT ---
EXAM DATE/TIME: 04/13/2017 22:34 [facility] COMPARISON: CHEST SINGLE AP, January 11, 2017, 8:56. INDICATIONS : Chest pain and shortness of breath. MEDICAL HISTORY : Pancreatitis. Rheumatoid arthritis. Chronic obstructive pulmonary disease. Prior tuberculosis. SURGICAL HISTORY : Chest tube. ENCOUNTER: Initial ACUITY: 2 days PAIN SCORE: 5/10 LOCATION: Bilateral chest FINDINGS: A single view of the chest demonstrates the lungs to be symmetrically aerated without evidence of mas s, infiltrate or effusion. Upper lobe calcified granulomas again seen. The cardiomediastinal contour s are unremarkable. Osseous structures are intact. CONCLUSION: No acute disease. Larry Birch MD on April 13, 2017 at 22:37 Board Certified Radiologist. This report was verified electronically.
[2017-04-13] MEDS ORDERED: LORazepam 2 MG/ML VIAL IV PUSH ONE (22:45)
[2017-04-13 22:48] VITALS: O2SAT 100
[2017-04-13] MEDS ORDERED: LORazepam 1 MG TAB PO ONE (23:00)
[2017-04-13] MEDS ORDERED: ONDANSETRON ODT 4 MG TAB PO ONE (23:00)
[2017-04-14 00:05] VITALS: BP 164/98
[2017-04-14] MEDS ORDERED: DICY10 PO (00:08)
[2017-04-14] MEDS ORDERED: ZOFR4TAB3 SL (00:08)
[2017-04-14] MEDS ORDERED: CLON0.1T PO (00:08)
[2017-04-14] MEDS ORDERED: CHLO25CA9 PO (00:08)
== END 2017-04-14 00:25 | disposition home or self-care (01) ==
LOC: NEPD 20:48
DX: R10.9 Unspecified abdominal pain (principal); G89.29 Other chronic pain; F10.20 Alcohol dependence, uncomplicated; R11.10 Vomiting, unspecified; R19.7 Diarrhea, unspecified; M06.9 Rheumatoid arthritis, unspecified; I10 Essential (primary) hypertension; J44.9 Chronic obstructive pulmonary disease, unspecified; K74.60 Unspecified cirrhosis of liver
CPT/HCPCS: 71010; 99284

== ENCOUNTER 2017-05-08 12:22 | Inpatient (IN) | payer OTHER ==
[2017-05-08] VITALS (13 sets, daily range): BP systolic 154–173; BP diastolic 93–107; PULSE 73–96; RESP 17–22; TEMP 98–98.9; O2SAT 95–100
[~2017-05-08 12:22] MED LIST changes: +CHLO25CA9 PO; +CLON0.1T PO; +DICY10 PO; -GNP100TA3 PO; -KETO10 PO; -PANT40TA3 PO; -ZOFR4TAB PO
[2017-05-08] MEDS ORDERED: HYDR-4107 PO (12:37)
[2017-05-08] MEDS ORDERED: MORP1TAB24 PO (12:37)
--- NOTE | 2017-05-08 12:40 | PD ---
HPI Chief Complaint: Chest Pain Time Seen by Provider: 12:35 Travel History International Travel<30 days: No Contact w/Intl Traveler<30days: No Traveled to known affect area: No History of Present Illness HPI 51-year-old male with history of alcohol abuse, GI bleed, chronic pancreatitis, presents to the ER today because he has tried to quit alcohol on his own and has not had anything to drink in the past 2 days and is feeling shaky, having chest discomfort. He denies any fevers, shortness of breath, or other symptoms. He also notes that his blood pressures have been elevated. Modifying Factors: None Associated Signs & Symptoms: Shakiness, chest discomfort, elevated blood pressure, trying to quit alcohol Risk Factors: None PFSH Past Medical History Hx Anticoagulant Therapy: No Arthritis: Yes (RA) Asthma: No Blood Disorders: Yes (HEPATITIS B AND C NO TREATMENT) Anxiety: Yes Depression: Yes Heart Rhythm Problems: No Cancer: No Cardiovascular Problems: Yes (HTN) High Cholesterol: No Chemotherapy: No Chest Pain: Yes (PALPITATIONS) Congestive Heart Failure: No Cirrhosis: Yes COPD: Yes Cerebrovascular Accident: No Diabetes: No Diminished Hearing: No Endocrine: No Gastrointestinal Disorders: Yes (PANCREATITIS) GERD: Yes Genitourinary: No Headaches: Yes Hepatitis: Yes (B & C) Hiatal Hernia: No Heparin Induced Thrombocytopen: No Herniated Disk: Yes Hypertension: Yes Immune Disorder: No Implanted Vascular Access Dvce: Yes Insomnia: Yes Kidney Stones: No Musculoskeletal: Yes (CHRONIC BACK PAIN) Neurologic: Yes Psychiatric: Yes Reproductive: Yes Respiratory: Yes (COPD / TB) Integumentary: Yes (HX IV DRUG USE) Immunizations Current: Yes Migraines: Yes Pancreatitis: Yes Pneumonia: Yes Radiation Therapy: No Renal Failure: No Seizures: No Sickle Cell Disease: No Sleep Apnea: No Thyroid Disease: No Ulcer: Yes PNEUMOCCOCAL Vaccine (Year): 2 Past Surgical History Abdominal Surgery: Yes (LIVER BIOPSY) AICD: No Arteriovenous Shunt: No Body Medical Devices: STEEL PLATE IN RIGHT ANKLE Cardiac Surgery: No Ear Surgery: No Endocrine Surgery: Yes (LIVER BIOPSY) Eye Surgery: No Genitourinary Surgery: No Gynecologic Surgery: No Hysterectomy: No Insulin Pump: No Joint Replacement: No Neurologic Surgery: No Oral Surgery: No Pacemaker: No Thoracic Surgery: Yes (CHEST TUBE- R/O TB 2009) Tonsillectomy: Yes Other Surgery: Yes (RIGHT ANKLE PLATE/SCREWS) Social History Alcohol Use: Yes (1/5 VODKA DAILY) Tobacco Use: Yes (1/2 PPD) Substance Use: No Allergies-Medications (Allergen,Severity, Reaction): Coded Allergies: prednisone (Unverified Allergy, Severe, Rash, 05/08/17) *MDRO Multi-Drug Resistant Organism (Verified Adverse Reaction, Unknown, Cleared, 05/08/17) MRSA arm wound 2008 MRSA PCR Screen negative 01/06/15 and 05/30/15. Cleared by Infection Control. Reported Meds & Prescriptions Reported Meds & Active Scripts Active Reported Morphine ER (Morphine Sulfate) 15 Mg Tab Unknown Dose PO BID Hydrocodone-Acetaminophen 5-300 Mg Tab Unknown Dose PO Q4H PRN Review of Systems Except as stated in HPI: all other systems reviewed are Neg Physical Exam Narrative GENERAL: Well-developed middle age white male patient currently in moderate distress, tremulous, appears very anxious. Awake and oriented 3. SKIN: Focused skin assessment warm/dry. HEAD: Atraumatic. Normocephalic. EYES: Pupils equal and round. No scleral icterus. No injection or drainage. ENT: No nasal bleeding or discharge. Mucous membranes pink and moist. NECK: Trachea midline. No JVD. CARDIOVASCULAR: Regular rate and rhythm. No murmur appreciated. RESPIRATORY: No accessory muscle use. Clear to auscultation. Breath sounds equal bilaterally. GASTROINTESTINAL: Abdomen soft, non-tender, nondistended. Hepatic and splenic margins not palpable. MUSCULOSKELETAL: No obvious deformities. No clubbing. No cyanosis. No edema. NEUROLOGICAL: Awake and alert. No obvious cranial nerve deficits. Motor grossly within normal limits. Normal speech. Tremulous. PSYCHIATRIC: Appropriate mood and affect; insight and judgment normal. Data Data Last Documented VS Vital Signs Date Time Temp Pulse Resp B/P Pulse Ox O2 Delivery O2 Flow Rate FiO2 05/08/17 14:40 82 18 156/103 96 Nasal Cannula 2 05/08/17 12:32 98.3 Orders Electrocardiogram (05/08/17 12:35) Basic Metabolic Panel (Bmp) (05/08/17 12:35) Ckmb (Isoenzyme) Profile (05/08/17 12:35) Complete Blood Count With Diff (05/08/17 12:35) Magnesium (Mg) (05/08/17 12:35) Prothrombin Time / Inr (Pt) (05/08/17 12:35) Act Partial Throm Time (Ptt) (05/08/17 12:35) Troponin I (05/08/17 12:35) Chest, Single Ap (05/08/17 12:35) Ecg Monitoring (05/08/17 12:35) Bilateral Bp Monitoring (05/08/17 12:35) Iv Access Insert/Monitor (05/08/17 12:35) Oximetry (05/08/17 12:35) Oxygen Administration (05/08/17 12:35) Sodium Chloride 0.9% Flush (Ns Flush) (05/08/17 12:45) Lorazepam Inj (Ativan Inj) (05/08/17 12:45) Sodium Chlor 0.9% 1000 Ml Inj (Ns 1000 M (05/08/17 12:45) CKMB (05/08/17 13:05) CKMB% (05/08/17 13:05) Potassium Chloride (Kcl) (05/08/17 13:45) Aspirin (Aspirin) (05/08/17 14:00) Nitroglycerin 2% Oint (Nitroglycerin 2% (05/08/17 14:00) Heparin Infusion SHELLEY.Q1H (05/08/17 14:42) Heparin Inj (Heparin Inj) (05/08/17 14:45) Heparin Inj (Heparin Inj) (05/08/17 20:45) Heparin Inj (Heparin Inj) (05/08/17 20:45) Heparin-D5w Inj (Heparin-D5w Inj) (05/08/17 14:45) Act Partial Throm Time (Ptt) (05/08/17 14:42) Cbc No Diff, Includes Plts (05/08/17 14:42) Cbc No Diff, Includes Plts (05/11/17 06:00) Act Partial Throm Time (Ptt) (05/08/17 21:42) Occult Blood (Hemoccult) Stool (05/08/17 14:42) Consult Cardiology (05/08/17 ) Admit Order (Ed Use Only) (05/08/17 14:50) Labs Laboratory Tests Test 05/08/17 13:05 White Blood Count 5.0 TH/MM3 Red Blood Count 4.40 MIL/MM3 Hemoglobin 11.6 GM/DL Hematocrit 35.9 % Mean Corpuscular Volume 81.7 FL Mean Corpuscular Hemoglobin 26.4 PG Mean Corpuscular Hemoglobin 32.3 % Concent Red Cell Distribution Width 19.4 % Platelet Count 75 TH/MM3 Mean Platelet Volume 7.8 FL Neutrophils (%) (Auto) 59.9 % Lymphocytes (%) (Auto) 27.8 % Monocytes (%) (Auto) 9.5 % Eosinophils (%) (Auto) 0.4 % Basophils (%) (Auto) 2.4 % Neutrophils # (Auto) 3.0 TH/MM3 Lymphocytes # (Auto) 1.4 TH/MM3 Monocytes # (Auto) 0.5 TH/MM3 Eosinophils # (Auto) 0.0 TH/MM3 Basophils # (Auto) 0.1 TH/MM3 CBC Comment AUTO DIFF Differential Comment AUTO DIFF CONFIRMED Platelet Estimate LOW Platelet Morphology Comment NORMAL Prothrombin Time 12.3 SEC Prothromb Time International 1.1 RATIO Ratio Activated Partial 28.5 SEC Thromboplast Time Sodium Level 132 MEQ/L Potassium Level 3.1 MEQ/L Chloride Level 97 MEQ/L Carbon Dioxide Level 24.2 MEQ/L Anion Gap 11 MEQ/L Blood Urea Nitrogen 7 MG/DL Creatinine 0.71 MG/DL Estimat Glomerular Filtration 117 ML/MIN Rate Random Glucose 130 MG/DL Calcium Level 8.2 MG/DL Magnesium Level 1.0 MG/DL Total Creatine Kinase 522 U/L Creatine Kinase MB 14.8 NG/ML Creatine Kinase MB % 2.8 % Troponin I 1.08 NG/ML MDM Medical Decision Making Medical Screen Exam Complete: Yes Emergency Medical Condition: Yes Medical Record Reviewed: Yes Interpretation(s) EKG shows NSR, no ST elevation or depression, and no arrhythmias. No significant T-wave inversions. Laboratory Tests Test 05/08/17 13:05 Red Blood Count 4.40 MIL/MM3 (4.50-5.90) Hemoglobin 11.6 GM/DL (13.0-17.0) Hematocrit 35.9 % (39.0-51.0) Mean Corpuscular Hemoglobin 26.4 PG (27.0-34.0) Red Cell Distribution Width 19.4 % (11.6-17.2) Platelet Count 75 TH/MM3 (150-450) Monocytes (%) (Auto) 9.5 % (0.0-8.0) Basophils (%) (Auto) 2.4 % (0.0-2.0) Platelet Estimate LOW (NORMAL) Prothrombin Time 12.3 SEC (9.8-11.6) Sodium Level 132 MEQ/L (136-145) Potassium Level 3.1 MEQ/L (3.5-5.1) Chloride Level 97 MEQ/L (98-107) Random Glucose 130 MG/DL (74-106) Calcium Level 8.2 MG/DL (8.5-10.1) Magnesium Level 1.0 MG/DL (1.5-2.5) Total Creatine Kinase 522 U/L (39-308) Creatine Kinase MB 14.8 NG/ML (0.5-3.6) Troponin I 1.08 NG/ML (0.02-0.05) Last 24 hours Impressions Chest X-Ray 05/08/17 1235 Signed Impressions: Service Date/Time: April 12:38 - CONCLUSION: 1. Scattered granulomatous changes within the upper lobes bilaterally which are stable. 2. No acute focal pulmonary infiltrate or pulmonary vascular congestion. Faizan Milian MD Differential Diagnosis Chest discomfort, tremulousness, palpitationsanxiety attack versus alcohol withdrawal versus metabolic issues versus dysrhythmias Narrative Course EKG did not show any signs of acute ST-T changes. However, his troponin is elevated. Patient had been given Ativan for alcohol withdrawal and has some improvement and trembling and tremors and anxiety. However, his chest pain remained and he was given aspirin, nitroglycerin, and the case was discussed with Dr. Nieves who would like the patient to be medically admitted at the main hospital. He states that patient does not have to be nothing by mouth for today. Case was then discussed with Dr. cShmitz for admission. Diagnosis Primary Impression: Non-ST elevation AR (NSTEMI) Additional Impression: Alcohol withdrawal Admitting Information Admitting Physician Requests: Admit Batool Jennings MD May 08, 2017 12:39
[2017-05-08] MEDS ORDERED: SODIUM CHLOR 0.9% 1000 ML INJ 1,000 ML IV ONE (12:45)
[2017-05-08] MEDS ORDERED: LORazepam 2 MG/ML VIAL IV PUSH ONE ×2 (12:45→20:30)
--- NOTE | 2017-05-08 13:15 | RADRPT ---
EXAM DATE/TIME: 05/08/2017 12:38 [facility] COMPARISON: CHEST SINGLE AP, April 13, 2017, 22:34. INDICATIONS : Chest pain for two days. MEDICAL HISTORY : Hepatitis B. Hepatitis C. Hypertension. COPD, Pancreatitis, TB SURGICAL HISTORY : Lt lung chest tube, Rt ankle ENCOUNTER: Initial ACUITY: 2 days PAIN SCORE: 10/10 LOCATION: Left chest FINDINGS: Granulomatous calcifications are again noted predominantly within the upper lobes bilaterally and are stable. There is no focal acute infiltrate. No pulmonary edema is noted. The heart and mediastina l structures are normal. CONCLUSION: 1. Scattered granulomatous changes within the upper lobes bilaterally which are stable. 2. No acute focal pulmonary infiltrate or pulmonary vascular congestion. Faizan Milian MD on May 08, 2017 at 13:09 Board Certified Radiologist. This report was verified electronically.
[2017-05-08 13:16] LABS: BASOPHIL # 0.1 TH/MM3 (0-0.2); BASOPHIL % 2.4 % (0.0-2.0); EOSINOPHIL % 0.4 % (0.0-4.0); HEMATOCRIT 35.9 % (39.0-51.0); LYMPH % 27.8 % (9.0-44.0); LYMPHOCYTE # 1.4 TH/MM3 (1.0-4.8); MEAN CELL VOLUME 81.7 FL (80.0-100.0); MEAN CORPUSCULAR HEMOGLOBIN 26.4 PG (27.0-34.0); MEAN CORPUSCULAR HGB CONC 32.3 % (32.0-36.0); MONO % 9.5 % (0.0-8.0); NEUT % 59.9 % (16.0-70.0); PLATELET COUNT 75 TH/MM3 (150-450); RED CELL DISTRIBUTION WIDTH 19.4 % (11.6-17.2)
[2017-05-08 13:19] LABS: HEMO FLAGS AUTO DIFF
[2017-05-08 13:28] LABS: POTASSIUM 3.1 MEQ/L (3.5-5.1)
[2017-05-08 13:31] LABS: BICARBONATE 24.2 MEQ/L (21.0-32.0)
[2017-05-08 13:34] LABS: APTT (PATIENT) 28.5 SEC (24.3-30.1); INTERNATIONAL NORMALIZED RATIO 1.1 RATIO; PROTHROMBIN TIME - PATIENT 12.3 SEC (9.8-11.6)
[2017-05-08] MEDS ORDERED: POTASSIUM CHLORIDE 10 MEQ CONTROLLED RELEASE TAB PO ONE ×2 (13:45→15:00)
[2017-05-08 13:50] LABS: CKMB 14.8 NG/ML (0.5-3.6)
[2017-05-08] MEDS ORDERED: NITROGLYCERIN 2% OINT 1 GM PACKET TOPICAL ONE (14:00)
[2017-05-08] MEDS ORDERED: ASPIRIN 325 MG TAB PO ONE (14:00)
[2017-05-08 14:11] LABS: PLATELET ESTIMATE SMEAR LOW (NORMAL); PLATELET MORPHOLOGY NORMAL (NORMAL); SCAN/DIFF AUTO DIFF CONFIRMED
[2017-05-08] MEDS ORDERED: HEPARIN SODIUM - IV 10,000 UNITS/10 ML VIAL IV ONE (14:45)
[2017-05-08] MEDS ORDERED: HEPARIN-D5W 25,000 U/250 ML 250 ML IV SCH (14:45)
[2017-05-08] MEDS ORDERED: FLUMAZENIL 0.5 MG/5 ML VIAL IV PUSH PRN (15:00)
[2017-05-08] MEDS ORDERED: ENALAPRILAT 1.25 MG/ML VIAL IV PRN (15:00)
[2017-05-08] MEDS ORDERED: NITROGLYCERIN 0.4 MG SL 25 TABS/BTL SL PRN (15:00)
[2017-05-08] MEDS ORDERED: LORazepam 2 MG/ML VIAL IV PUSH PRN ×4 (15:00)
[2017-05-08] MEDS ORDERED: ONDANSETRON HCL 4 MG/2 ML VIAL IV PRN (15:00)
[2017-05-08] MEDS: MAGNESIUM SULFATE 1 GM PREMIX 100 ML IV SCH ×2 (15:00→16:00)
--- NOTE | 2017-05-08 16:04 | HHI.HP ---
[facility] Service [facility] Hospitalists Primary Care Physician Maribell Chang MD Admission Diagnosis non-ST elevation [place] Diagnoses: (1) Non-ST elevated myocardial infarction Diagnosis: Principal (2) Chest pain Diagnosis: Principal (3) Alcohol withdrawal Diagnosis: Principal (4) Alcohol dependence Diagnosis: Principal Chief Complaint: Chest pain Travel History International Travel<30 Days: No Contact w/Intl Traveler <30 Da: No Traveled to Known Affected Are: No History of Present Illness Written by Frank Rey, acting as scribe for Dr. Schmitz on 05/08/17 at 15: 47. Mr. Pink is a 51-year-old male with multiple evaluations and admissions for alcohol withdrawal, known ETOH abuse, history of IV drug use, acute on chronic pancreatitis, chronic pain, untreated hepatitis B and C who presented to the hospital this time because of chest discomfort. Patient states that last week he started developing chest pain located in the left sternal border without any radiation to the neck, back, shoulder, arm. He has had some nausea but no vomiting, he has had associated shortness of breath and dyspnea. He states that he also has had diaphoresis that started in the last 2 days. Patient states that the pain was intermittent over the last week but it progressively got worse over the last 2 days in which turned into a sharp stabbing pain 8/10 on a pain scale. Because the pain woke him up in the middle the night last night and did not improve he came to the hospital for evaluation. The patient has been trying to stop drinking alcohol over the last few days. He is used to drinking a fifth to half gallon of vodka daily. He has had multiple admissions in the hospital for alcohol withdrawal, alcoholic pancreatitis with history of significant alcohol withdrawal and seizures. Patient had workup done emergency department and did have positive troponin, EKG shows normal sinus rhythm without any changes from previous evaluations. Patient has a non-ST elevated myocardial infarction, ER physician contacted creative arts music therapist on-call who recommended the patient be placed on heparin IV and transferred to [facility] for cardiac catheterization. Review of Systems Constitutional: COMPLAINS OF: Diaphoretic episodes Respiratory: COMPLAINS OF: Shortness of breath Cardiovascular: COMPLAINS OF: Chest pain Gastrointestinal: COMPLAINS OF: Nausea Except as stated in HPI: all other systems reviewed are Neg Past Family Social History Past Medical History ETOH abuse Chronic Pancreatitis Hepatitis B and C Duodenal Ulcers Tobacco Abuse History of IV drug use Chronic back pain Rheumatoid Arthritis Steel plate status post right ankle fracture Chest tube for pneumothorax Past Surgical History Tonsillectomy EGD June 2016 Liver Biopsy Right ankle surgery Reported Medications Reported Meds & Active Scripts Active Reported Morphine ER (Morphine Sulfate) 15 Mg Tab Unknown Dose PO BID Hydrocodone-Acetaminophen 5-300 Mg Tab Unknown Dose PO Q4H PRN Allergies: Coded Allergies: prednisone (Unverified Allergy, Severe, Rash, 05/08/17) *MDRO Multi-Drug Resistant Organism (Verified Adverse Reaction, Unknown, Cleared, 05/08/17) MRSA arm wound 2008 MRSA PCR Screen negative 01/06/15 and 05/30/15. Cleared by Infection Control. Family History Reviewed and significant for father with diabetes and coronary artery disease. Mother has a history of anxiety. Social History Patient smokes a half a pack a cigarettes a day, and drinks up to 1/2 gallon of vodka daily. Denies any illicit drugs Physical Exam Vital Signs Vital Signs Date Time Temp Pulse Resp B/P Pulse Ox O2 Delivery O2 Flow Rate FiO2 05/08/17 15:36 80 20 163/106 98 05/08/17 14:40 82 18 156/103 96 Nasal Cannula 2 05/08/17 13:46 83 20 167/103 99 Nasal Cannula 2 05/08/17 13:14 83 20 168/107 99 173/103 05/08/17 12:54 95 05/08/17 12:32 98.3 96 22 173/97 100 Physical Exam GENERAL: Well-developed, well-nourished, in no acute distress. alert and orientated. Patient obviously appears to be in alcohol withdrawal this time with obvious tremors. Body shakes HEENT: Head is normocephalic without any lesions or masses noted. Facial features are symmetric. Eyes: Pupils equal round reactive to light. Extraocular muscles are intact. Conjunctivae were clear. Oropharyngeal: Pharynx without any erythema edema. Tongue is midline without deviation. Buccal mucosa is moist without any masses or lesions NECK: Supple without any masses. Trachea midline no deviation. No JVD, no bruits are appreciated CARDIAC: Regular rhythm, regular rate. S1/S2 are heard. No murmurs gallops or rubs. LUNGS: Clear to auscultation bilaterally. No wheeze, rhonchi or rales. No use of accessory muscles on inspiration or expiration. ABDOMEN: Soft, nontender. Nondistended. Bowel sounds heard in all 4 quadrants. No organomegaly or masses. Negative rebound, negative guarding EXTREMITIES: No edema, pulses are equal bilaterally. No cyanosis or clubbing NEUROLOGY: Mood and affect appear appropriate. Cranial nerves II through XII grossly intact. Muscle strength 5/5 in upper and lower extremities bilaterally. Deep tendon reflexes are 2+ in upper and lower extremities bilaterally. 2+ extremity tremors noted Laboratory Laboratory Tests Test 05/08/17 13:05 White Blood Count 5.0 Red Blood Count 4.40 Hemoglobin 11.6 Hematocrit 35.9 Mean Corpuscular Volume 81.7 Mean Corpuscular Hemoglobin 26.4 Mean Corpuscular Hemoglobin 32.3 Concent Red Cell Distribution Width 19.4 Platelet Count 75 Mean Platelet Volume 7.8 Neutrophils (%) (Auto) 59.9 Lymphocytes (%) (Auto) 27.8 Monocytes (%) (Auto) 9.5 Eosinophils (%) (Auto) 0.4 Basophils (%) (Auto) 2.4 Neutrophils # (Auto) 3.0 Lymphocytes # (Auto) 1.4 Monocytes # (Auto) 0.5 Eosinophils # (Auto) 0.0 Basophils # (Auto) 0.1 CBC Comment AUTO DIFF Differential Comment AUTO DIFF CONFIRMED Platelet Estimate LOW Platelet Morphology Comment NORMAL Prothrombin Time 12.3 Prothromb Time International 1.1 Ratio Activated Partial 28.5 Thromboplast Time Sodium Level 132 Potassium Level 3.1 Chloride Level 97 Carbon Dioxide Level 24.2 Anion Gap 11 Blood Urea Nitrogen 7 Creatinine 0.71 Estimat Glomerular Filtration 117 Rate Random Glucose 130 Calcium Level 8.2 Magnesium Level 1.0 Total Creatine Kinase 522 Creatine Kinase MB 14.8 Creatine Kinase MB % 2.8 Troponin I 1.08 Result Diagram: 05/08/17 1305 05/08/17 1305 Imaging Last Impressions Chest X-Ray 05/08/17 1235 Signed Impressions: Service Date/Time: April 12:38 - CONCLUSION: 1. Scattered granulomatous changes within the upper lobes bilaterally which are stable. 2. No acute focal pulmonary infiltrate or pulmonary vascular congestion. Faizan Milian MD Assessment and Plan Assessment and Plan Non-ST elevated myocardial infarction 51-year-old male presented with chest discomfort while withdrawing from alcohol. Patient does have increased risk factors to include age, male, tobacco use Cardiology consulted by ER physician, requesting transfer to [facility] hospital with heparin IV. Likely will require cardiac intervention Continue to trend cardiac enzymes/troponin, EKGs, check lipid panel Cardiac protection Given aspirin 325 mg in the emergency department heparin IV, started on Coreg 3.125 mg twice daily Started on lisinopril 5 mg daily Start Nitropaste Start Lipitor 10 mg daily Alcohol dependency with known history of alcohol withdrawal, alcohol seizures Monitor for seizures CIWA protocol Liver cirrhosis, hepatitis B and C We'll need to monitor liver enzymes Tobacco abuse Patient counseled on cessation DVT Prophylaxis Heparin IV This note was transcribed by scribe [Frank Rey]. I, Dr. Viktor Schmitz personally performed the history, physical exam, and medical decision making; and confirmed the accuracy of the information in the transcribed note. Authenticated by Dr. Viktor Schmitz on 05/08/17 at 16:14. Discussed Condition With Patient, ER physician Physician Certification 2 Midnight Certification Type: Admission for Inpatient Services Order for Inpatient Services The services are ordered in accordance with Medicare regulations or non- Medicare payer requirements, as applicable. In the case of services not specified as inpatient-only, they are appropriately provided as inpatient services in accordance with the 2-midnight benchmark. Estimated LOS (days): 3 days is the estimated time the patient will need to remain in the hospital, assuming treatment plan goals are met and no additional complications. Post-Hospital Plan: Not yet determined Frank Rey May 08, 2017 16:03 Viktor Schmitz MD May 08, 2017 16:14
[2017-05-08] MEDS ORDERED: NS + KCL 20 MEQ INJ 1,000 ML IV SCH (16:30)
[2017-05-08 16:58] LABS: INDIRECT BILIRUBIN 0.8 MG/DL (0.0-0.8); TOTAL BILIRUBIN ADULT 1.2 MG/DL (0.2-1.0)
[2017-05-08 19:55] LABS: CKMB 11.5 NG/ML (0.5-3.6)
[2017-05-08] MEDS ORDERED: MAGNESIUM OXIDE 400 MG TAB PO ONE (20:30)
[2017-05-08] MEDS: NITROGLYCERIN 2% OINT 1 GM PACKET TOPICAL SCH ×2 (20:37→20:38)
[2017-05-08] MEDS ORDERED: HEPARIN SODIUM - IV 10,000 UNITS/10 ML VIAL IV PRN ×2 (20:45)
[2017-05-08] MEDS: CARVEDILOL 3.125 MG TAB PO SCH (20:45)
[2017-05-08] MEDS: ATORVASTATIN 10 MG TAB PO SCH (20:46)
[2017-05-08] MEDS: SODIUM CHLOR 0.9% 1000 ML INJ 1,000 ML IV SCH (21:12)
[2017-05-08 22:15] LABS: APTT (PATIENT) 72.3 SEC (24.3-30.1)
[2017-05-08] MEDS ORDERED: chlordiazePOXIDE 25 MG CAP PO ONE (23:15)
[2017-05-08 23:55] LABS: HDL CHOLESTEROL 66.6 MG/DL (40.0-60.0)
[2017-05-09] VITALS (24 sets, daily range): BP systolic 116–145; BP diastolic 79–115; PULSE 63–84; RESP 16–20; TEMP 98.3–98.7; O2SAT 96–98
[2017-05-09] MEDS: NITROGLYCERIN 2% OINT 1 GM PACKET TOPICAL SCH ×5 (00:57→23:23)
[2017-05-09 01:50] LABS: CKMB 7.6 NG/ML (0.5-3.6)
[2017-05-09] MEDS: LORazepam 2 MG TAB PO PRN ×3 (04:03→18:05)
[2017-05-09 05:42] LABS: AUTOMATED NEUTROPHIL # 1.6 TH/MM3 (1.8-7.7); BASOPHIL % 0.7 % (0.0-2.0); EOSINOPHIL # 0.1 TH/MM3 (0-0.4); EOSINOPHIL % 2.5 % (0.0-4.0); HEMATOCRIT 37.1 % (39.0-51.0); LYMPH % 51.5 % (9.0-44.0); LYMPHOCYTE # 2.1 TH/MM3 (1.0-4.8); MEAN CELL VOLUME 84.1 FL (80.0-100.0); MEAN CORPUSCULAR HEMOGLOBIN 26.9 PG (27.0-34.0); MEAN CORPUSCULAR HGB CONC 31.9 % (32.0-36.0); MONO % 6.9 % (0.0-8.0); NEUT % 38.4 % (16.0-70.0); PLATELET COUNT 57 TH/MM3 (150-450); RED BLOOD COUNT 4.41 MIL/MM3 (4.50-5.90); RED CELL DISTRIBUTION WIDTH 20.6 % (11.6-17.2); WHITE BLOOD COUNT 4.1 TH/MM3 (4.0-11.0)
[2017-05-09 05:43] LABS: APTT (PATIENT) 60.4 SEC (24.3-30.1)
[2017-05-09 05:48] LABS: HEMO FLAGS AUTO DIFF
[2017-05-09 05:54] LABS: BICARBONATE 30.5 MEQ/L (21.0-32.0); POTASSIUM 3.5 MEQ/L (3.5-5.1)
[2017-05-09] MEDS: LORazepam 1 MG TAB PO PRN ×2 (06:29→21:28)
[2017-05-09 07:44] LABS: PLATELET ESTIMATE SMEAR LOW (NORMAL); PLATELET MORPHOLOGY NORMAL (NORMAL)
[2017-05-09 07:45] LABS: SCAN/DIFF AUTO DIFF CONFIRMED
--- NOTE | 2017-05-09 08:48 | HHI.PR ---
Subjective Remarks This is a pleasant 51 y/o Male with Multiple evaluations and admissions for alcohol withdrawal. he has ETOH abuse history of IV drug abuse, acute on chronic Pancreatitis, chronic pain syndrome and Narcotic dependence, Hepatitis B and C, came to ER with Atypical chest pain, associated Nausea and vomit, Continue drinking alcohol, found with Positive Troponin, with Diagnosis of NSTEMI recommended by Cardiology to start Heparin drip and transfer to [facility] for Probable Cardiac Catheterization today. 05/09: Seen in his bedroom and discussed with nurse Miss De La Torre he continue with mild chest pain, continue asking for Pain medicine, also states he wants to go home now, continue present care and follow specialist recommendations NO Nausea, vomit or diarrhea. Objective Vital Signs Date Time Temp Pulse Resp B/P Pulse Ox O2 Delivery O2 Flow Rate FiO2 05/09/17 07:00 63 05/09/17 06:00 70 05/09/17 05:00 74 05/09/17 04:00 73 05/09/17 03:30 98.7 69 16 123/82 98 05/09/17 03:00 76 05/09/17 02:00 74 05/09/17 01:00 72 05/09/17 00:00 83 05/09/17 00:00 98.5 83 20 132/97 98 05/08/17 23:00 77 05/08/17 22:50 98.0 77 22 155/106 100 05/08/17 22:10 98.9 79 17 154/101 98 Nasal Cannula 2 05/08/17 20:30 98.3 94 17 155/99 Nasal Cannula 2 05/08/17 19:12 80 18 155/96 98 Nasal Cannula 2 05/08/17 18:08 73 18 159/93 95 05/08/17 16:52 78 20 156/97 98 05/08/17 15:36 80 20 163/106 98 05/08/17 14:40 82 18 156/103 96 Nasal Cannula 2 05/08/17 13:46 83 20 167/103 99 Nasal Cannula 2 05/08/17 13:14 83 20 168/107 99 173/103 05/08/17 12:54 95 05/08/17 12:32 98.3 96 22 173/97 100 I/O 05/08/17 05/08/17 05/08/17 05/09/17 05/09/1705/09/17 07:00 15:00 23:00 07:00 15:00 23:00 Intake Total 500 ml 792 ml Output Total 1150 ml 350 ml Balance -650 ml 442 ml Intake Oral 360 ml 240 ml IV Total 140 ml 552 ml Output Urine Total 1150 ml 350 ml # Voids 3 1 # Bowel Movements 0 Result Diagram: 05/09/17 0515 05/09/17 0515 Imaging Last Impressions Chest X-Ray 05/08/17 1235 Signed Impressions: Service Date/Time: April 12:38 - CONCLUSION: 1. Scattered granulomatous changes within the upper lobes bilaterally which are stable. 2. No acute focal pulmonary infiltrate or pulmonary vascular congestion. Faizan Milian MD Procedures None Other Results Laboratory Tests Test 05/08/17 05/08/17 05/09/17 05/09/17 13:05 19:10 00:50 05:15 Prothrombin Time 12.3 SEC Prothromb Time International 1.1 RATIO Ratio Magnesium Level 1.0 MG/DL Total Bilirubin 1.2 MG/DL Direct Bilirubin 0.4 MG/DL Indirect Bilirubin 0.8 MG/DL Aspartate Amino Transf 275 U/L (AST/SGOT) Alanine Aminotransferase 77 U/L (ALT/SGPT) Alkaline Phosphatase 98 U/L Total Protein 7.4 GM/DL Albumin 3.9 GM/DL Triglycerides Level 43 MG/DL Cholesterol Level 120 MG/DL LDL Cholesterol 45 MG/DL HDL Cholesterol 66.6 MG/DL Cholesterol/HDL Ratio 1.80 RATIO Thyroid Stimulating Hormone 1.230 uIU/ML 3rd Gen Total Creatine Kinase 326 U/L Creatine Kinase MB 7.6 NG/ML Creatine Kinase MB % 2.3 % Troponin I 0.57 NG/ML White Blood Count 4.1 TH/MM3 Red Blood Count 4.41 MIL/MM3 Hemoglobin 11.8 GM/DL Hematocrit 37.1 % Mean Corpuscular Volume 84.1 FL Mean Corpuscular Hemoglobin 26.9 PG Mean Corpuscular Hemoglobin 31.9 % Concent Red Cell Distribution Width 20.6 % Platelet Count 57 TH/MM3 Mean Platelet Volume 8.8 FL Neutrophils (%) (Auto) 38.4 % Lymphocytes (%) (Auto) 51.5 % Monocytes (%) (Auto) 6.9 % Eosinophils (%) (Auto) 2.5 % Basophils (%) (Auto) 0.7 % Neutrophils # (Auto) 1.6 TH/MM3 Lymphocytes # (Auto) 2.1 TH/MM3 Monocytes # (Auto) 0.3 TH/MM3 Eosinophils # (Auto) 0.1 TH/MM3 Basophils # (Auto) 0.0 TH/MM3 CBC Comment AUTO DIFF Differential Comment AUTO DIFF CONFIRMED Platelet Estimate LOW Platelet Morphology Comment NORMAL Activated Partial 60.4 SEC Thromboplast Time Sodium Level 139 MEQ/L Potassium Level 3.5 MEQ/L Chloride Level 102 MEQ/L Carbon Dioxide Level 30.5 MEQ/L Anion Gap 7 MEQ/L Blood Urea Nitrogen 3 MG/DL Creatinine 0.52 MG/DL Estimat Glomerular Filtration 168 ML/MIN Rate Random Glucose 96 MG/DL Calcium Level 7.7 MG/DL Objective Remarks GENERAL: Well-developed, well-nourished, in no acute distress. HEENT: Head is normocephalic atraumatic. NECK: Supple without any masses. No JVD, no lymphadenopathy. CARDIAC: Regular rhythm, regular rate. S1/S2 are heard. No murmurs gallops or rubs. LUNGS: Clear to auscultation bilaterally. No wheeze, rhonchi or rales. No use of accessory muscles on inspiration or expiration. ABDOMEN: Soft, nontender. Nondistended. Bowel sounds heard in all 4 quadrants. No organomegaly or masses. Negative rebound, negative guarding EXTREMITIES: No edema, pulses are equal bilaterally. No cyanosis or clubbing NEUROLOGY: Mood and affect appear appropriate. Medications and IVs Current Medications Medications (Trade) Dose Ordered Sig/Karlos Route Start Time Stop Time Status Last Admin (NS Flush) 2 ml UNSCH PRN IVF 05/08/17 12:45 (Heparin Inj) 5,000 units UNSCH PRN IV 05/08/17 20:45 Heparin Sodium (Porcine) 2500 units 2,500 units UNSCH PRN IV 05/08/17 20:45 (Heparin-D5W Inj) 250 ml @ 0 mls/hr TITRATE IV 05/08/17 14:45 05/08/17 14:59 (Nitrostat Sl) 0.4 mg Q5M PRN SL 05/08/17 15:00 (Zofran Inj) 4 mg Q6H PRN IV 05/08/17 15:00 (Coreg) 3.125 mg BID PO 05/08/17 21:00 05/08/17 20:45 (Prinivil) 5 mg DAILY PO 05/09/17 09:00 (Romazicon Inj) 0.2 mg Q1M PRN IV PUSH 05/08/17 15:00 (Ativan) 1 mg Q4H PRN PO 05/08/17 15:00 05/09/17 06:29 (Ativan Inj) 1 mg Q4H PRN IV PUSH 05/08/17 15:00 (Ativan) 2 mg Q2H PRN PO 05/08/17 15:00 05/09/17 04:03 (Ativan Inj) 2 mg Q2H PRN IV PUSH 05/08/17 15:00 (Ativan Inj) 2 mg Q1H PRN IV PUSH 05/08/17 15:00 (Ativan Inj) 2 mg Q15M PRN IV PUSH 05/08/17 15:00 05/08/17 23:03 (Vasotec Inj) 1.25 mg Q6H PRN IV 05/08/17 15:00 05/08/17 15:43 (Nitroglycerin 2% Oint) 0.5 inch Q6HR TOPICAL 05/08/17 18:00 05/09/17 06:29 Atorvastatin Calcium 10 mg 10 mg HS PO 05/08/17 21:00 05/08/17 20:46 (NS 1000 ml Inj) 1,000 ml @ 100 mls/hr Q10H IV 05/08/17 20:30 05/08/17 21:12 A/P Assessment and Plan 1. Non-ST elevated myocardial infarction, awaiting final recommendations by energy conservation specialist Continue Cardiac monitoring, Aspirin, Coreg 3.125 mg BID, Lisinopril, Nitroglycerine, Statin Lipitor, probable Cardiac Cath later today. Heparin drip, awaiting final recommendations by energy conservation specialist. 2. Alcohol dependency with known history of alcohol withdrawal and alcoholic seizures, continue monitoring and CIWA protocol 3. Liver Cirrhosis Hepatitis B and C. 4. Tobacco dependence strongly recommended to stop smoking 5. History of IV drug abuse 6. Chronic Pancreatitis 7. Chronic pain syndrome and Narcotic dependence, asked to continue Home medicines started pain medicine. 8. Hypokalemia 3.5 given replacement. DVT prophylaxis on Heparin drip DVT Prophylaxis Heparin IV Discussed Condition With Discharge Planning Once cleared by energy conservation specialist. Diallo Carey MD May 09, 2017 08:47
--- NOTE | 2017-05-09 09:18 | EKG ---
Date Performed: 05/09/2017 Time Performed: 00:56:12 PTAGE: 51 years EKG: Sinus rhythm Poor R wave progression - probable normal variant Septal T wave changes may be due to myocardial isc hemia Abnormal ECG Compared to prior tracing no significant change DOCTOR: Gerson Hernández Interpretating Date/Time 05/09/2017 09:16:34
--- NOTE | 2017-05-09 09:19 | EKG ---
Date Performed: 05/08/2017 Time Performed: 12:35:53 PTAGE: 51 years EKG: Sinus rhythm NORMAL ECG PREVIOUS TRACING : 04/13/2017 09.01 Compared to prior tracing no significant change DOCTOR: Gerson Hernández Interpretating Date/Time 05/09/2017 09:16:54
--- NOTE | 2017-05-09 09:19 | EKG ---
Date Performed: 05/08/2017 Time Performed: 19:02:02 PTAGE: 51 years EKG: Sinus rhythm NORMAL ECG PREVIOUS TRACING : 05/08/2017 12.35 Compared to prior tracing no significant change DOCTOR: Gerson Hernández Interpretating Date/Time 05/09/2017 09:16:43
[2017-05-09] MEDS: CARVEDILOL 3.125 MG TAB PO SCH ×2 (09:20→19:41)
[2017-05-09] MEDS: LISINOPRIL 5 MG TAB PO SCH (09:20)
[2017-05-09] MEDS: SODIUM CHLOR 0.9% 1000 ML INJ 1,000 ML IV SCH ×2 (09:20→16:30)
[2017-05-09] MEDS: SODIUM CHLORIDE 0.9% FLUSH 10 ML FLUSH IVF PRN ×2 (09:21→19:42)
[2017-05-09] MEDS ORDERED: POTASSIUM CHLOR 10 MEQ PREMIX 100 ML IV SCH (17:00)
--- NOTE | 2017-05-09 17:49 | MB ---
cc: MIRNA RECIO DO DATE OF CONSULTATION May 09, 2017 REASON FOR CONSULTATION Chest pain with elevated troponin. HISTORY OF PRESENT ILLNESS Porfirio Pink is a 51-year-old male who presented to [facility] Emergency Room on May 02, 2017 due to chest pain. He states that the chest pain was sharp in nature in the lower portion of his chest. He did have some nausea but no vomiting with it. He also had some mild shortness of breath. He states that the pain has been somewhat intermittent over the last week. He ended up having an episode of pain in the middle of the night and did not improve so he came to the hospital for evaluation. The patient recently tried to stop drinking over the past few days. He previously was drinking a fifth to half a gallon of vodka daily. On initial evaluation and he had an elevated troponin which has since dropped off. He was started on IV heparin and transferred to [facility] for further consideration of ischemic evaluation. PAST MEDICAL HISTORY 1. Alcohol abuse. 2. Chronic pancreatitis. 3. Hepatitis B and C. 4. Duodenal ulcers. 5. Tobacco abuse. 6. History of IV drug abuse. 7. Chronic back pain. 8. Rheumatoid arthritis. 9. Steel plates status post right ankle fracture. 10. Chest tube for pneumothorax. PAST SURGICAL HISTORY 1. Tonsillectomy. 2. Multiple EGD showing duodenal ulcers. 3. Liver biopsy. 4. Right ankle surgery. ALLERGIES PREDNISONE. MEDICATIONS 1. Hydrocodone/acetaminophen 5/300 milligrams every 4 hours as needed for pain. 2. Morphine ER 15 milligrams b.i.d. FAMILY HISTORY Denies premature coronary artery disease or sudden cardiac within the family. SOCIAL HISTORY The patient smokes about a half-pack of cigarettes a day. Drinks up to half a galloon of vodka daily which he was trying to quit this week. Denies any illicit drugs. REVIEW OF SYSTEMS 14-systems were reviewed including osteopathic. Pertinent positives and negatives above, otherwise, negative. PHYSICAL EXAMINATION VITAL SIGNS: Temperature 98.3, heart rate 84, blood pressure 145/110, respirations 18, pulse ox 96% on 2 liters. GENERAL: In general, the patient appears mildly anxious but no acute distress, alert, awake and oriented x3. HEENT: Extraocular muscles intact. Mucous membranes moist. NECK: Supple. No JVD at 45 degrees. No carotid bruits heard bilaterally. Carotid upstroke is brisk in nature. HEART: Heart is regular rate and rhythm. Positive first and second heart sounds with no noted murmurs, gallops or rubs. LUNGS: Clear to auscultation bilaterally. No wheezes, rales or rhonchi. ABDOMEN: Soft, nontender, nondistended. No organomegaly noted. EXTREMITIES: Show no clubbing, cyanosis or edema. Femoral and distal pulses intact bilaterally. NEUROLOGICALLY: No focal deficits. SKIN: Warm, dry and intact. OSTEOPATHIC: No kyphoscoliosis, lordosis or paraspinal tender points. LABORATORY FINDINGS Hemoglobin 11.8, hematocrit 37.1, platelet count 57. Potassium 3.5, BUN 3, creatinine 0.52. Troponin 1.08 decreasing to 0.57. TSH 1.23. CARDIOLOGY STUDIES Electrocardiogram (May 09, 2017 at 00:56) sinus rhythm, poor R-wave progression, mild T-wave changes septally, cannot rule out ischemia. IMPRESSION 1. Chest pain atypical for coronary insufficiency. 2. Elevated troponin with an abnormal decrease instead of typical rise. 3. Alcohol withdrawal. 4. Alcohol dependence. 5. Tobacco abuse. 6. History of IV drug abuse. 7. Chronic pancreatitis. 8. Hepatitis B and C. 9. Multiple EGDs showing duodenal ulcers. 10. Thrombocytopenia. RECOMMENDATIONS 1. Mr. Pink presented with atypical chest pain and had an elevation of his troponins, although, these dropped abnormally instead of a typical rise. 2. His EKG does have some mild changes septally. 3. Overall, at this time he is not an invasive cardiac candidate and must continue on medical management. We will stop his heparin and he cannot be placed on dual antiplatelet therapy as his platelets are currently 57. 4. I would not place him on statin therapy as his AST is currently greater than three times normal. 5. We will place him on beta ladarius therapy. 6. We will have to follow his labs as he currently has a drop in platelets from 75 to 57. Overall review of his previous history he has never had extensive thrombocytopenia. Thank you for allowing me to see Porfirio Pink. If there are any questions please do not hesitate to call. Vincniles JOSUEP/EO /4:55 PM /5:31 PM
[2017-05-09] MEDS ORDERED: POTASSIUM CHLORIDE 20 MEQ CONTROLLED RELEASE TAB PO ONE (18:15)
[2017-05-09] MEDS: ATORVASTATIN 10 MG TAB PO SCH (19:41)
[2017-05-10] VITALS (26 sets, daily range): BP systolic 103–130; BP diastolic 77–94; PULSE 61–96; RESP 18; TEMP 97.7–98.1; O2SAT 95–98
[2017-05-10] MEDS: SODIUM CHLOR 0.9% 1000 ML INJ 1,000 ML IV SCH ×3 (02:30→22:30)
[2017-05-10] MEDS: LORazepam 1 MG TAB PO PRN ×2 (02:56→14:04)
[2017-05-10] MEDS: NITROGLYCERIN 2% OINT 1 GM PACKET TOPICAL SCH ×3 (05:50→17:22)
--- NOTE | 2017-05-10 08:55 | HHI.PR ---
Subjective Remarks This is a pleasant 51 y/o Male with Multiple evaluations and admissions for alcohol withdrawal. he has ETOH abuse history of IV drug abuse, acute on chronic Pancreatitis, chronic pain syndrome and Narcotic dependence, Hepatitis B and C, came to ER with Atypical chest pain, associated Nausea and vomit, Continue drinking alcohol, found with Positive Troponin, with Diagnosis of NSTEMI recommended by Cardiology to start Heparin drip and transfer [facility]iac Catheterization today. 05/09: Seen in his bedroom and discussed with nurse Miss De La Torre he continue with mild chest pain, continue asking for Pain medicine, also states he wants to go home now, continue present care and follow specialist recommendations 05/10: Seen in his bedroom in the presence of Doctor Gopi Pradhan, performance specialist his mother also present not candidate for Invasive procedure, due to high dose of anticoagulation and DAPT needed for PCI, with his current Thrombocytopenia, also not able to give statins with his ALT elevation three times than normal. due to his ETOh abuse history of. Objective Vital Signs Date Time Temp Pulse Resp B/P Pulse Ox O2 Delivery O2 Flow Rate FiO2 05/10/17 07:01 76 05/10/17 06:04 77 05/10/17 05:04 77 05/10/17 04:06 69 05/10/17 03:03 69 05/10/17 02:57 98.1 69 18 129/89 98 05/10/17 02:12 61 05/10/17 01:26 69 05/09/17 23:31 69 05/09/17 23:25 98.5 69 18 116/79 98 05/09/17 22:07 68 05/09/17 21:32 71 05/09/17 20:00 73 05/09/17 19:43 98.6 73 18 123/86 97 05/09/17 17:21 72 05/09/17 16:00 72 05/09/17 15:00 98.3 84 18 145/115 96 05/09/17 13:21 16 05/09/17 13:00 77 05/09/17 12:36 80 05/09/17 12:13 97 Nasal Cannula 2.00 05/09/17 11:00 72 05/09/17 10:00 71 05/09/17 09:00 71 I/O 8/18/17 8/18/05/09/17 05/10/17 05/10/17 05/10/17 07:00 15:00 23:00 07:00 15:00 23:00 Intake Total 792 ml 1370 ml 320 ml Output Total 350 ml 2200 ml 725 ml Balance 442 ml -830 ml -405 ml Intake Oral 240 ml 420 ml 320 ml IV Total 552 ml 950 ml Output Urine Total 350 ml 2200 ml 725 ml # Voids 1 # Bowel Movements 0 Result Diagram: 05/09/17 0515 05/09/17 0515 Imaging Last Impressions Chest X-Ray 05/08/17 1235 Signed Impressions: Service Date/Time: April 12:38 - CONCLUSION: 1. Scattered granulomatous changes within the upper lobes bilaterally which are stable. 2. No acute focal pulmonary infiltrate or pulmonary vascular congestion. Faizan Milian MD Procedures None Other Results Laboratory Tests Test 05/08/17 05/08/17 05/09/17 05/09/17 13:05 19:10 00:50 05:15 Prothrombin Time 12.3 SEC Prothromb Time International 1.1 RATIO Ratio Magnesium Level 1.0 MG/DL Total Bilirubin 1.2 MG/DL Direct Bilirubin 0.4 MG/DL Indirect Bilirubin 0.8 MG/DL Aspartate Amino Transf 275 U/L (AST/SGOT) Alanine Aminotransferase 77 U/L (ALT/SGPT) Alkaline Phosphatase 98 U/L Total Protein 7.4 GM/DL Albumin 3.9 GM/DL Triglycerides Level 43 MG/DL Cholesterol Level 120 MG/DL LDL Cholesterol 45 MG/DL HDL Cholesterol 66.6 MG/DL Cholesterol/HDL Ratio 1.80 RATIO Thyroid Stimulating Hormone 1.230 uIU/ML 3rd Gen Total Creatine Kinase 326 U/L Creatine Kinase MB 7.6 NG/ML Creatine Kinase MB % 2.3 % Troponin I 0.57 NG/ML White Blood Count 4.1 TH/MM3 Red Blood Count 4.41 MIL/MM3 Hemoglobin 11.8 GM/DL Hematocrit 37.1 % Mean Corpuscular Volume 84.1 FL Mean Corpuscular Hemoglobin 26.9 PG Mean Corpuscular Hemoglobin 31.9 % Concent Red Cell Distribution Width 20.6 % Platelet Count 57 TH/MM3 Mean Platelet Volume 8.8 FL Neutrophils (%) (Auto) 38.4 % Lymphocytes (%) (Auto) 51.5 % Monocytes (%) (Auto) 6.9 % Eosinophils (%) (Auto) 2.5 % Basophils (%) (Auto) 0.7 % Neutrophils # (Auto) 1.6 TH/MM3 Lymphocytes # (Auto) 2.1 TH/MM3 Monocytes # (Auto) 0.3 TH/MM3 Eosinophils # (Auto) 0.1 TH/MM3 Basophils # (Auto) 0.0 TH/MM3 CBC Comment AUTO DIFF Differential Comment AUTO DIFF CONFIRMED Platelet Estimate LOW Platelet Morphology Comment NORMAL Activated Partial 60.4 SEC Thromboplast Time Sodium Level 139 MEQ/L Potassium Level 3.5 MEQ/L Chloride Level 102 MEQ/L Carbon Dioxide Level 30.5 MEQ/L Anion Gap 7 MEQ/L Blood Urea Nitrogen 3 MG/DL Creatinine 0.52 MG/DL Estimat Glomerular Filtration 168 ML/MIN Rate Random Glucose 96 MG/DL Calcium Level 7.7 MG/DL Objective Remarks GENERAL: Well-developed, well-nourished, in no acute distress. HEENT: Head is normocephalic atraumatic. NECK: Supple without any masses. No JVD, no lymphadenopathy. CARDIAC: Regular rhythm, regular rate. S1/S2 are heard. No murmurs gallops or rubs. LUNGS: Clear to auscultation bilaterally. No wheeze, rhonchi or rales. No use of accessory muscles on inspiration or expiration. ABDOMEN: Soft, nontender. Nondistended. Bowel sounds heard in all 4 quadrants. No organomegaly or masses. Negative rebound, negative guarding EXTREMITIES: No edema, pulses are equal bilaterally. No cyanosis or clubbing NEUROLOGY: Mood and affect appear appropriate. Medications and IVs Current Medications Medications (Trade) Dose Ordered Sig/Karlos Route Start Time Stop Time Status Last Admin (NS Flush) 2 ml UNSCH PRN IVF 05/08/17 12:45 05/09/17 19:42 (Heparin Inj) 5,000 units UNSCH PRN IV 05/08/17 20:45 Heparin Sodium (Porcine) 2500 units 2,500 units UNSCH PRN IV 05/08/17 20:45 (Heparin-D5W Inj) 250 ml @ 0 mls/hr TITRATE IV 05/08/17 14:45 05/08/17 14:59 (Nitrostat Sl) 0.4 mg Q5M PRN SL 05/08/17 15:00 (Zofran Inj) 4 mg Q6H PRN IV 05/08/17 15:00 05/09/17 10:54 (Coreg) 3.125 mg BID PO 05/08/17 21:00 05/09/17 19:41 (Prinivil) 5 mg DAILY PO 05/09/17 09:00 05/09/17 09:20 (Romazicon Inj) 0.2 mg Q1M PRN IV PUSH 05/08/17 15:00 (Ativan) 1 mg Q4H PRN PO 05/08/17 15:00 05/10/17 02:56 (Ativan Inj) 1 mg Q4H PRN IV PUSH 05/08/17 15:00 (Ativan) 2 mg Q2H PRN PO 05/08/17 15:00 05/09/17 18:05 (Ativan Inj) 2 mg Q2H PRN IV PUSH 05/08/17 15:00 (Ativan Inj) 2 mg Q1H PRN IV PUSH 05/08/17 15:00 (Ativan Inj) 2 mg Q15M PRN IV PUSH 05/08/17 15:00 05/08/17 23:03 (Vasotec Inj) 1.25 mg Q6H PRN IV 05/08/17 15:00 05/08/17 15:43 (Nitroglycerin 2% Oint) 0.5 inch Q6HR TOPICAL 05/08/17 18:00 05/10/17 05:50 Atorvastatin Calcium 10 mg 10 mg HS PO 05/08/17 21:00 05/09/17 19:41 (NS 1000 ml Inj) 1,000 ml @ 100 mls/hr Q10H IV 05/08/17 20:30 05/09/17 09:20 (Roxicodone) 10 mg Q6H PRN PO 05/09/17 08:45 05/10/17 05:50 A/P Assessment and Plan 1. Non-ST elevated myocardial infarction, awaiting final recommendations by performance specialist Continue Cardiac monitoring, Aspirin, Coreg 3.125 mg BID, Lisinopril, Nitroglycerine, Statin Lipitor, probable Cardiac Cath later today. Heparin drip, with Diagnosis of Atypical chest pain, chronic Pancreatitis, hepatitis B and C, history of IV drug abuse, Duodenal ulcers, thrombocytopenia recommended by Doctor Gopi Pradhan performance specialist, ECG with septal changes Non candidate for invasive procedure, only medical management, removed Heparin and not able to give dual antiplatelet therapy due to thrombocytopenia, also no Statin due to AST is currently greater than three time normal, continue Beta Blockers, follow Platelets, 2. Alcohol dependency with known history of alcohol withdrawal and alcoholic seizures, continue monitoring and CIWA protocol 3. Liver Cirrhosis Hepatitis B and C. 4. Tobacco dependence strongly recommended to stop smoking 5. History of IV drug abuse 6. Chronic Pancreatitis 7. Chronic pain syndrome and Narcotic dependence, asked to continue Home medicines started pain medicine. 8. Hypokalemia 3.5 given replacement. 9. Thrombocytopenia worsening 55 today following. DVT prophylaxis on Heparin drip DVT Prophylaxis Heparin IV Discussed Condition With Patient and his Mother all questions answered to the best of my abilities. As always a pleasure to talk about cases receive input and recommendations by Manager Secondary Doctor Gopi Pradhan. Appreciated. Discharge Planning Once cleared by performance specialist. Diallo Carey MD May 10, 2017 08:55
[2017-05-10] MEDS: LISINOPRIL 5 MG TAB PO SCH (08:56)
[2017-05-10] MEDS: CARVEDILOL 3.125 MG TAB PO SCH ×2 (08:56→20:12)
[2017-05-10 09:54] LABS: BASOPHIL % 0.6 % (0.0-2.0); EOSINOPHIL # 0.1 TH/MM3 (0-0.4); EOSINOPHIL % 3.8 % (0.0-4.0); HEMATOCRIT 37.6 % (39.0-51.0); LYMPH % 33.7 % (9.0-44.0); LYMPHOCYTE # 1.2 TH/MM3 (1.0-4.8); MEAN CELL VOLUME 84.8 FL (80.0-100.0); MEAN CORPUSCULAR HEMOGLOBIN 27.3 PG (27.0-34.0); MEAN CORPUSCULAR HGB CONC 32.2 % (32.0-36.0); MONO % 6.4 % (0.0-8.0); NEUT % 55.5 % (16.0-70.0); PLATELET COUNT 55 TH/MM3 (150-450); RED BLOOD COUNT 4.44 MIL/MM3 (4.50-5.90); RED CELL DISTRIBUTION WIDTH 20.2 % (11.6-17.2); WHITE BLOOD COUNT 3.6 TH/MM3 (4.0-11.0)
[2017-05-10 09:55] LABS: HEMO FLAGS AUTO DIFF
[2017-05-10 09:58] LABS: BICARBONATE 26.9 MEQ/L (21.0-32.0); POTASSIUM 3.7 MEQ/L (3.5-5.1)
[2017-05-10 10:40] LABS: BANDS 1 % (0-6); BASOPHILS 1 % (0-2); EOSINOPHILS 2 % (0-4); METAMYELOCYTES 1 % (0-1); NEUTROPHIL # MANUAL DIFF 2.2 TH/MM3 (1.8-7.7); POLYS (SEG NEUTROPHILS) 58 % (16-70); WBC DIFF SAMPLE 100
[2017-05-10 10:42] LABS: PLATELET ESTIMATE SMEAR LOW (NORMAL); PLATELET MORPHOLOGY ENLARGED (NORMAL); SCAN/DIFF FINAL DIFF MANUAL
--- NOTE | 2017-05-10 12:31 | PD.CARD.PN ---
Subjective Subjective Remarks No events overnight Stated he had his sharp chest pain last night a little bit, nothing like when he came in, when asked where it hurt he points to the epigastric region Objective Medications Current Medications Medications (Trade) Dose Ordered Sig/Karlos Route Start Time Stop Time Status Last Admin (NS Flush) 2 ml UNSCH PRN IVF 05/08/17 12:45 05/09/17 19:42 (Heparin Inj) 5,000 units UNSCH PRN IV 05/08/17 20:45 Heparin Sodium (Porcine) 2500 units 2,500 units UNSCH PRN IV 05/08/17 20:45 (Heparin-D5W Inj) 250 ml @ 0 mls/hr TITRATE IV 05/08/17 14:45 05/08/17 14:59 (Nitrostat Sl) 0.4 mg Q5M PRN SL 05/08/17 15:00 (Zofran Inj) 4 mg Q6H PRN IV 05/08/17 15:00 05/09/17 10:54 (Coreg) 3.125 mg BID PO 05/08/17 21:00 05/10/17 08:56 (Prinivil) 5 mg DAILY PO 05/09/17 09:00 05/10/17 08:56 (Romazicon Inj) 0.2 mg Q1M PRN IV PUSH 05/08/17 15:00 (Ativan) 1 mg Q4H PRN PO 05/08/17 15:00 05/10/17 02:56 (Ativan Inj) 1 mg Q4H PRN IV PUSH 05/08/17 15:00 (Ativan) 2 mg Q2H PRN PO 05/08/17 15:00 05/09/17 18:05 (Ativan Inj) 2 mg Q2H PRN IV PUSH 05/08/17 15:00 (Ativan Inj) 2 mg Q1H PRN IV PUSH 05/08/17 15:00 (Ativan Inj) 2 mg Q15M PRN IV PUSH 05/08/17 15:00 05/08/17 23:03 (Vasotec Inj) 1.25 mg Q6H PRN IV 05/08/17 15:00 05/08/17 15:43 (Nitroglycerin 2% Oint) 0.5 inch Q6HR TOPICAL 05/08/17 18:00 05/10/17 05:50 Atorvastatin Calcium 10 mg 10 mg HS PO 05/08/17 21:00 05/09/17 19:41 (NS 1000 ml Inj) 1,000 ml @ 100 mls/hr Q10H IV 05/08/17 20:30 05/09/17 09:20 (Roxicodone) 10 mg Q6H PRN PO 05/09/17 08:45 05/10/17 05:50 Vital Signs / I&O Vital Signs Date Time Temp Pulse Resp B/P Pulse Ox O2 Delivery O2 Flow Rate FiO2 05/10/17 11:30 97.7 88 18 103/78 95 05/10/17 08:45 97.8 68 18 130/94 98 05/10/17 07:01 76 05/10/17 06:04 77 05/10/17 05:04 77 05/10/17 04:06 69 05/10/17 03:03 69 05/10/17 02:57 98.1 69 18 129/89 98 05/10/17 02:12 61 05/10/17 01:26 69 05/09/17 23:31 69 05/09/17 23:25 98.5 69 18 116/79 98 05/09/17 22:07 68 05/09/17 21:32 71 05/09/17 20:00 73 05/09/17 19:43 98.6 73 18 123/86 97 05/09/17 17:21 72 05/09/17 16:00 72 05/09/17 15:00 98.3 84 18 145/115 96 05/09/17 13:21 16 05/09/17 13:00 77 05/09/17 12:36 80 I/O 05/09/17 05/09/17 05/09/17 05/10/17 05/10/17 05/10/17 07:00 15:00 23:00 07:00 15:00 23:00 Intake Total 792 ml 1370 ml 320 ml Output Total 350 ml 2200 ml 725 ml Balance 442 ml -830 ml -405 ml Intake Oral 240 ml 420 ml 320 ml IV Total 552 ml 950 ml Output Urine Total 350 ml 2200 ml 725 ml # Voids 1 # Bowel Movements 0 Physical Exam GENERAL: NAD, AAOx3 SKIN: Warm and dry. HEAD: Atraumatic. Normocephalic. EYES: Pupils equal and round. No scleral icterus. No injection or drainage. ENT: No nasal bleeding or discharge. Mucous membranes pink and moist. NECK: Trachea midline. No JVD. CARDIOVASCULAR: Regular rate and rhythm. RESPIRATORY: No accessory muscle use. Clear to auscultation. Breath sounds equal bilaterally. GASTROINTESTINAL: Abdomen soft, non-tender, nondistended. Hepatic and splenic margins not palpable. MUSCULOSKELETAL: Extremities without clubbing, cyanosis, or edema. No obvious deformities. NEUROLOGICAL: Awake and alert. No obvious cranial nerve deficits. Motor grossly within normal limits. Five out of 5 muscle strength in the arms and legs. Normal speech. PSYCHIATRIC: Appropriate mood and affect; insight and judgment normal. Laboratory Laboratory Tests Test 05/10/17 08:44 White Blood Count 3.6 TH/MM3 Red Blood Count 4.44 MIL/MM3 Hemoglobin 12.1 GM/DL Hematocrit 37.6 % Mean Corpuscular Volume 84.8 FL Mean Corpuscular Hemoglobin 27.3 PG Mean Corpuscular Hemoglobin 32.2 % Concent Red Cell Distribution Width 20.2 % Platelet Count 55 TH/MM3 Mean Platelet Volume 9.4 FL Neutrophils (%) (Auto) 55.5 % Lymphocytes (%) (Auto) 33.7 % Monocytes (%) (Auto) 6.4 % Eosinophils (%) (Auto) 3.8 % Basophils (%) (Auto) 0.6 % Neutrophils # (Auto) 2.0 TH/MM3 Lymphocytes # (Auto) 1.2 TH/MM3 Monocytes # (Auto) 0.2 TH/MM3 Eosinophils # (Auto) 0.1 TH/MM3 Basophils # (Auto) 0.0 TH/MM3 CBC Comment AUTO DIFF Differential Total Cells 100 Counted Neutrophils % (Manual) 58 % Band Neutrophils % 1 % Lymphocytes % 32 % Monocytes % 5 % Eosinophils % 2 % Basophils % 1 % Neutrophils # (Manual) 2.2 TH/MM3 Metamyelocytes 1 % Differential Comment FINAL DIFF MANUAL Platelet Estimate LOW Platelet Morphology Comment ENLARGED Sodium Level 136 MEQ/L Potassium Level 3.7 MEQ/L Chloride Level 103 MEQ/L Carbon Dioxide Level 26.9 MEQ/L Anion Gap 6 MEQ/L Blood Urea Nitrogen 8 MG/DL Creatinine 0.50 MG/DL Estimat Glomerular Filtration 175 ML/MIN Rate Random Glucose 113 MG/DL Calcium Level 8.1 MG/DL Assessment and Plan Problem List: (1) Elevated troponin (2) Chest pain (3) Alcohol withdrawal (4) Alcohol dependence (5) Chronic abdominal pain (6) Gastritis (7) Nausea & vomiting (8) Alcoholism Assessment and Plan 1) Chest pain Atypical for coronary insufficiency and a drop in the troponin Possible GI cause, will check lipase Not a candidate for invasive procedure at this time due high dose anticoagulation and DAPT needed for PCI, currently with thrombocytopenia Con't medical management with BB and nitro SL PRN Not a statin candidate as AST 3x greater than normal 2) Thrombocytopenia Most likely due to ETOH history PCP to further work up inpt vs outpt 3) ETOH abuse Attempting to quit Gopi Pradhan DO May 10, 2017 12:31
[2017-05-10] MEDS: LORazepam 2 MG TAB PO PRN (20:12)
[2017-05-10] MEDS: ATORVASTATIN 10 MG TAB PO SCH (20:12)
[2017-05-11] VITALS (11 sets, daily range): BP systolic 113–130; BP diastolic 74–90; PULSE 64–91; RESP 16–20; TEMP 97.9–98.5; O2SAT 97–100
[2017-05-11] MEDS: LORazepam 1 MG TAB PO PRN ×2 (00:08→03:48)
[2017-05-11 05:07] LABS: APTT (PATIENT) 24.3 SEC (24.3-30.1)
[2017-05-11 05:15] LABS: HEMATOCRIT 39.7 % (39.0-51.0); MEAN CELL VOLUME 84.9 FL (80.0-100.0); MEAN CORPUSCULAR HEMOGLOBIN 27.2 PG (27.0-34.0); PLATELET COUNT 64 TH/MM3 (150-450); RED BLOOD COUNT 4.68 MIL/MM3 (4.50-5.90); RED CELL DISTRIBUTION WIDTH 20.8 % (11.6-17.2); WHITE BLOOD COUNT 4.9 TH/MM3 (4.0-11.0)
[2017-05-11 05:20] LABS: REVIEW FLAG FINAL
[2017-05-11] MEDS: NITROGLYCERIN 2% OINT 1 GM PACKET TOPICAL SCH ×2 (05:57)
--- NOTE | 2017-05-11 05:59 | HHI.PR ---
Subjective Remarks This is a pleasant 51 y/o Male with Multiple evaluations and admissions for alcohol withdrawal. he has ETOH abuse history of IV drug abuse, acute on chronic Pancreatitis, chronic pain syndrome and Narcotic dependence, Hepatitis B and C, came to ER with Atypical chest pain, associated Nausea and vomit, Continue drinking alcohol, found with Positive Troponin, with Diagnosis of NSTEMI recommended by Cardiology to start Heparin drip and transfer to [facility] for [facility]iac Catheterization today. 05/09: Seen in his bedroom and discussed with nurse Miss De La Torre he continue with mild chest pain, continue asking for Pain medicine, also states he wants to go home now, continue present care and follow specialist recommendations 05/10: Seen in his bedroom in the presence of Doctor Gopi Pradhan, central melt specialist his mother also present not candidate for Invasive procedure, due to high dose of anticoagulation and DAPT needed for PCI, with his current Thrombocytopenia, also not able to give statins with his ALT elevation three times than normal. due to his ETOh abuse history of. 05/11: Today Platelet count trending up, Discussed in his bedroom with him and nurse Mr. Harris, again explained to the patient and discussed about that he needs to stop his behavior with substance abuse, Tobacco and alcohol to improve from his conditions, but later he decided to leave the hospital AMA, no complaint today, no nausea, vomit or diarrhea no chest pain. Objective Vital Signs Date Time Temp Pulse Resp B/P Pulse Ox O2 Delivery O2 Flow Rate FiO2 05/11/17 05:00 68 05/11/17 04:00 66 05/11/17 03:50 98.0 72 20 130/90 98 05/11/17 03:00 70 05/11/17 02:00 64 05/11/17 01:00 70 05/11/17 00:09 98.0 82 20 125/87 97 05/11/17 00:00 70 05/10/17 23:00 70 05/10/17 22:00 70 05/10/17 21:00 70 05/10/17 20:00 70 05/10/17 19:00 84 05/10/17 18:06 71 05/10/17 17:00 72 05/10/17 16:00 63 05/10/17 15:15 77 05/10/17 15:15 97.9 70 18 114/77 96 05/10/17 14:01 62 05/10/17 13:00 96 05/10/17 12:00 76 05/10/17 11:30 97.7 88 18 103/78 95 05/10/17 11:00 73 05/10/17 10:00 76 05/10/17 09:00 72 05/10/17 08:45 97.8 68 18 130/94 98 05/10/17 08:00 66 05/10/17 07:01 76 05/10/17 06:04 77 I/O 05/10/17 05/10/17 05/10/17 05/11/17 05/11/17 05/11/17 07:00 15:00 23:00 07:00 15:00 23:00 Intake Total 320 ml 640 ml Output Total 725 ml 1050 ml Balance -405 ml -410 ml Intake Oral 320 ml 640 ml Output Urine Total 725 ml 1050 ml Result Diagram: 05/11/17 0340 05/10/17 0844 Imaging Last Impressions Chest X-Ray 05/08/17 1235 Signed Impressions: Service Date/Time: April 12:38 - CONCLUSION: 1. Scattered granulomatous changes within the upper lobes bilaterally which are stable. 2. No acute focal pulmonary infiltrate or pulmonary vascular congestion. Faizan Milian MD Procedures None Other Results Laboratory Tests Test 05/08/17 05/08/17 05/09/17 05/10/17 13:05 19:10 00:50 08:44 Prothrombin Time 12.3 SEC Prothromb Time International 1.1 RATIO Ratio Magnesium Level 1.0 MG/DL Total Bilirubin 1.2 MG/DL Direct Bilirubin 0.4 MG/DL Indirect Bilirubin 0.8 MG/DL Aspartate Amino Transf 275 U/L (AST/SGOT) Alanine Aminotransferase 77 U/L (ALT/SGPT) Alkaline Phosphatase 98 U/L Total Protein 7.4 GM/DL Albumin 3.9 GM/DL Triglycerides Level 43 MG/DL Cholesterol Level 120 MG/DL LDL Cholesterol 45 MG/DL HDL Cholesterol 66.6 MG/DL Cholesterol/HDL Ratio 1.80 RATIO Thyroid Stimulating Hormone 1.230 uIU/ML 3rd Gen Total Creatine Kinase 326 U/L Creatine Kinase MB 7.6 NG/ML Creatine Kinase MB % 2.3 % Troponin I 0.57 NG/ML Neutrophils (%) (Auto) 55.5 % Lymphocytes (%) (Auto) 33.7 % Monocytes (%) (Auto) 6.4 % Eosinophils (%) (Auto) 3.8 % Basophils (%) (Auto) 0.6 % Neutrophils # (Auto) 2.0 TH/MM3 Lymphocytes # (Auto) 1.2 TH/MM3 Monocytes # (Auto) 0.2 TH/MM3 Eosinophils # (Auto) 0.1 TH/MM3 Basophils # (Auto) 0.0 TH/MM3 CBC Comment AUTO DIFF Differential Total Cells 100 Counted Neutrophils % (Manual) 58 % Band Neutrophils % 1 % Lymphocytes % 32 % Monocytes % 5 % Eosinophils % 2 % Basophils % 1 % Neutrophils # (Manual) 2.2 TH/MM3 Metamyelocytes 1 % Differential Comment FINAL DIFF MANUAL Platelet Estimate LOW Platelet Morphology Comment ENLARGED Sodium Level 136 MEQ/L Potassium Level 3.7 MEQ/L Chloride Level 103 MEQ/L Carbon Dioxide Level 26.9 MEQ/L Anion Gap 6 MEQ/L Blood Urea Nitrogen 8 MG/DL Creatinine 0.50 MG/DL Estimat Glomerular Filtration 175 ML/MIN Rate Random Glucose 113 MG/DL Calcium Level 8.1 MG/DL Lipase 94 U/L Test 05/11/17 03:40 White Blood Count 4.9 TH/MM3 Red Blood Count 4.68 MIL/MM3 Hemoglobin 12.7 GM/DL Hematocrit 39.7 % Mean Corpuscular Volume 84.9 FL Mean Corpuscular Hemoglobin 27.2 PG Mean Corpuscular Hemoglobin 32.0 % Concent Red Cell Distribution Width 20.8 % Platelet Count 64 TH/MM3 Mean Platelet Volume 10.1 FL Activated Partial 24.3 SEC Thromboplast Time Objective Remarks GENERAL: Well-developed, well-nourished, in no acute distress. HEENT: Head is normocephalic atraumatic. NECK: Supple without any masses. No JVD, no lymphadenopathy. CARDIAC: Regular rhythm, regular rate. S1/S2 are heard. No murmurs gallops or rubs. LUNGS: Clear to auscultation bilaterally. No wheeze, rhonchi or rales. No use of accessory muscles on inspiration or expiration. ABDOMEN: Soft, nontender. Nondistended. Bowel sounds heard in all 4 quadrants. No organomegaly or masses. Negative rebound, negative guarding EXTREMITIES: No edema, pulses are equal bilaterally. No cyanosis or clubbing NEUROLOGY: Mood and affect appear appropriate. Medications and IVs Current Medications Medications (Trade) Dose Ordered Sig/Karlos Route Start Time Stop Time Status Last Admin (NS Flush) 2 ml UNSCH PRN IVF 05/08/17 12:45 05/09/17 19:42 (Heparin Inj) 5,000 units UNSCH PRN IV 05/08/17 20:45 Heparin Sodium (Porcine) 2500 units 2,500 units UNSCH PRN IV 05/08/17 20:45 (Heparin-D5W Inj) 250 ml @ 0 mls/hr TITRATE IV 05/08/17 14:45 05/08/17 14:59 (Nitrostat Sl) 0.4 mg Q5M PRN SL 05/08/17 15:00 (Zofran Inj) 4 mg Q6H PRN IV 05/08/17 15:00 05/09/17 10:54 (Coreg) 3.125 mg BID PO 05/08/17 21:00 05/10/17 20:12 (Prinivil) 5 mg DAILY PO 05/09/17 09:00 05/10/17 08:56 (Romazicon Inj) 0.2 mg Q1M PRN IV PUSH 05/08/17 15:00 (Ativan) 1 mg Q4H PRN PO 05/08/17 15:00 05/11/17 03:48 (Ativan Inj) 1 mg Q4H PRN IV PUSH 05/08/17 15:00 (Ativan) 2 mg Q2H PRN PO 05/08/17 15:00 05/10/17 20:12 (Ativan Inj) 2 mg Q2H PRN IV PUSH 05/08/17 15:00 (Ativan Inj) 2 mg Q1H PRN IV PUSH 05/08/17 15:00 (Ativan Inj) 2 mg Q15M PRN IV PUSH 05/08/17 15:00 05/08/17 23:03 (Vasotec Inj) 1.25 mg Q6H PRN IV 05/08/17 15:00 05/08/17 15:43 (Nitroglycerin 2% Oint) 0.5 inch Q6HR TOPICAL 05/08/17 18:00 05/11/17 05:57 Atorvastatin Calcium 10 mg 10 mg HS PO 05/08/17 21:00 05/10/17 20:12 (NS 1000 ml Inj) 1,000 ml @ 100 mls/hr Q10H IV 05/08/17 20:30 05/09/17 09:20 (Roxicodone) 10 mg Q6H PRN PO 05/09/17 08:45 05/11/17 03:47 A/P Assessment and Plan 1. Non-ST elevated myocardial infarction, awaiting final recommendations by central melt specialist Continue Cardiac monitoring, Aspirin, Coreg 3.125 mg BID, Lisinopril, Nitroglycerine, Statin Lipitor, probable Cardiac Cath later today. Heparin drip, with Diagnosis of Atypical chest pain, chronic Pancreatitis, hepatitis B and C, history of IV drug abuse, Duodenal ulcers, thrombocytopenia recommended by Doctor Gopi Pradhan central melt specialist, ECG with septal changes Non candidate for invasive procedure, only medical management, removed Heparin and not able to give dual antiplatelet therapy due to thrombocytopenia, also no Statin due to AST is currently greater than three time normal, continue Beta Blockers, follow Platelets, 2. Alcohol dependency with known history of alcohol withdrawal and alcoholic seizures, continue monitoring and CIWA protocol Strongly recommended on multiple opportunities about the need to stop Smoking, drinking alcohol and abusing substances. 3. Liver Cirrhosis Hepatitis B and C. 4. Tobacco dependence strongly recommended to stop smoking 5. History of IV drug abuse 6. Chronic Pancreatitis 7. Chronic pain syndrome and Narcotic dependence, asked to continue Home medicines started pain medicine. 8. Hypokalemia 3.5 given replacement. 9. Thrombocytopenia worsening 55 today following. DVT prophylaxis on Heparin drip DVT Prophylaxis Heparin IV Discussed Condition With Patient. all questions answered to the best of my abilities. As always a pleasure to talk about cases receive input and recommendations by Manager Occupational Doctor Gopi Pradhan. Appreciated. The patient decided to sign AMA some moments later all possible consequences of his action were disclose to the patient by my Team. Discharge Planning Signed Diallo Dillard MD May 11, 2017 05:59
--- NOTE | 2017-05-11 14:28 | HHI.DS ---
Discharge Summary Admission Date May 08, 2017 at 14:51 Discharge Date: May 11, 2017 Admitting Diagnosis non-ST elevation PA (1) Non-ST elevated myocardial infarction ICD Code: I21.4 - Non-ST elevation (NSTEMI) myocardial infarction Diagnosis: Principal Status: Acute (2) Chest pain ICD Code: R07.9 - Chest pain, unspecified Diagnosis: Principal Status: Acute (3) Alcohol withdrawal ICD Code: F10.239 - Alcohol dependence with withdrawal, unspecified Diagnosis: Principal Status: Acute (4) Alcohol dependence ICD Code: F10.20 - Alcohol dependence, uncomplicated Diagnosis: Principal Status: Acute Procedures Stress test Brief History - From Admission Written by Frank Rey, acting as scribe for Dr. Schmitz on 05/08/17 at 15: 47. Mr. Pink is a 51-year-old male with multiple evaluations and admissions for alcohol withdrawal, known ETOH abuse, history of IV drug use, acute on chronic pancreatitis, chronic pain, untreated hepatitis B and C who presented to the hospital this time because of chest discomfort. Patient states that last week he started developing chest pain located in the left sternal border without any radiation to the neck, back, shoulder, arm. He has had some nausea but no vomiting, he has had associated shortness of breath and dyspnea. He states that he also has had diaphoresis that started in the last 2 days. Patient states that the pain was intermittent over the last week but it progressively got worse over the last 2 days in which turned into a sharp stabbing pain 8/10 on a pain scale. Because the pain woke him up in the middle the night last night and did not improve he came to the hospital for evaluation. The patient has been trying to stop drinking alcohol over the last few days. He is used to drinking a fifth to half gallon of vodka daily. He has had multiple admissions in the hospital for alcohol withdrawal, alcoholic pancreatitis with history of significant alcohol withdrawal and seizures. Patient had workup done emergency department and did have positive troponin, EKG shows normal sinus rhythm without any changes from previous evaluations. Patient has a non-ST elevated myocardial infarction, ER physician contacted church communications administrator on-call who recommended the patient be placed on heparin IV and transferred to [facility] for cardiac catheterization. CBC/BMP: 05/11/17 0340 05/10/17 0844 Significant Findings Laboratory Tests Test 05/08/17 19:10 05/08/17 21:53 05/09/17 00:50 05/09/17 05:15 Total Creatine Kinase 438 U/L (39-308) 326 U/L (39-308) Creatine Kinase MB 11.5 NG/ML (0.5-3.6) 7.6 NG/ML (0.5-3.6) Troponin I 0.79 NG/ML (0.02-0.05) 0.57 NG/ML (0.02-0.05) HDL Cholesterol 66.6 MG/DL (40.0-60.0) Activated Partial Thromboplast Time 72.3 SEC (24.3-30.1) 60.4 SEC (24.3-30.1) Red Blood Count 4.41 MIL/MM3 (4.50-5.90) Hemoglobin 11.8 GM/DL (13.0-17.0) Hematocrit 37.1 % (39.0-51.0) Mean Corpuscular Hemoglobin 26.9 PG (27.0-34.0) Mean Corpuscular Hemoglobin Concent 31.9 % (32.0-36.0) Red Cell Distribution Width 20.6 % (11.6-17.2) Platelet Count 57 TH/MM3 (150-450) Lymphocytes (%) (Auto) 51.5 % (9.0-44.0) Neutrophils # (Auto) 1.6 TH/MM3 (1.8-7.7) Platelet Estimate LOW (NORMAL) Blood Urea Nitrogen 3 MG/DL (7-18) Creatinine 0.52 MG/DL (0.60-1.30) Calcium Level 7.7 MG/DL (8.5-10.1) Test 05/10/17 08:44 05/11/17 03:40 White Blood Count 3.6 TH/MM3 (4.0-11.0) Red Blood Count 4.44 MIL/MM3 (4.50-5.90) Hemoglobin 12.1 GM/DL (13.0-17.0) 12.7 GM/DL (13.0-17.0) Hematocrit 37.6 % (39.0-51.0) Red Cell Distribution Width 20.2 % (11.6-17.2) 20.8 % (11.6-17.2) Platelet Count 55 TH/MM3 (150-450) 64 TH/MM3 (150-450) Platelet Estimate LOW (NORMAL) Platelet Morphology Comment ENLARGED (NORMAL) Creatinine 0.50 MG/DL (0.60-1.30) Random Glucose 113 MG/DL (74-106) Calcium Level 8.1 MG/DL (8.5-10.1) Imaging Last Impressions Chest X-Ray 05/08/17 1235 Signed Impressions: Service Date/Time: April 12:38 - CONCLUSION: 1. Scattered granulomatous changes within the upper lobes bilaterally which are stable. 2. No acute focal pulmonary infiltrate or pulmonary vascular congestion. Faizan Milian MD PE at Discharge GENERAL: Well-developed, well-nourished, in no acute distress. HEENT: Head is normocephalic atraumatic. NECK: Supple without any masses. No JVD, no lymphadenopathy. CARDIAC: Regular rhythm, regular rate. S1/S2 are heard. No murmurs gallops or rubs. LUNGS: Clear to auscultation bilaterally. No wheeze, rhonchi or rales. No use of accessory muscles on inspiration or expiration. ABDOMEN: Soft, nontender. Nondistended. Bowel sounds heard in all 4 quadrants. No organomegaly or masses. Negative rebound, negative guarding EXTREMITIES: No edema, pulses are equal bilaterally. No cyanosis or clubbing NEUROLOGY: Mood and affect appear appropriate. Hospital Course This is a pleasant 51 y/o Male with Multiple evaluations and admissions for alcohol withdrawal. he has ETOH abuse history of IV drug abuse, acute on chronic Pancreatitis, chronic pain syndrome and Narcotic dependence, Hepatitis B and C, came to ER with Atypical chest pain, associated Nausea and vomit, Continue drinking alcohol, found with Positive Troponin, with Diagnosis of NSTEMI recommended by Cardiology to start Heparin drip and transfer to [facility] for Probable Cardiac Catheterization today. 05/09: Seen in his bedroom and discussed with nurse Miss De La Torre he continue with mild chest pain, continue asking for Pain medicine, also states he wants to go home now, continue present care and follow specialist recommendations 05/10: Seen in his bedroom in the presence of Doctor Gopi Pradhan, internet e commerce specialist his mother also present not candidate for Invasive procedure, due to high dose of anticoagulation and DAPT needed for PCI, with his current Thrombocytopenia, also not able to give statins with his ALT elevation three times than normal. due to his ETOh abuse history of. 05/11: Today Platelet count trending up, Discussed in his bedroom with him and nurse Mr. Harris, again explained to the patient and discussed about that he needs to stop his behavior with substance abuse, Tobacco and alcohol to improve from his conditions, but later he decided to leave the hospital AMA, no complaint today, no nausea, vomit or diarrhea no chest pain. Assessment and Plan 1. Non-ST elevated myocardial infarction, awaiting final recommendations by internet e commerce specialist Continue Cardiac monitoring, Aspirin, Coreg 3.125 mg BID, Lisinopril, Nitroglycerine, Statin Lipitor, probable Cardiac Cath later today. Heparin drip, with Diagnosis of Atypical chest pain, chronic Pancreatitis, hepatitis B and C, history of IV drug abuse, Duodenal ulcers, thrombocytopenia recommended by Doctor Gopi Pradhan internet e commerce specialist, ECG with septal changes Non candidate for invasive procedure, only medical management, removed Heparin and not able to give dual antiplatelet therapy due to thrombocytopenia, also no Statin due to AST is currently greater than three time normal, continue Beta Blockers, follow Platelets, 2. Alcohol dependency with known history of alcohol withdrawal and alcoholic seizures, continue monitoring and CIWA protocol Strongly recommended on multiple opportunities about the need to stop Smoking, drinking alcohol and abusing substances. 3. Liver Cirrhosis Hepatitis B and C. 4. Tobacco dependence strongly recommended to stop smoking 5. History of IV drug abuse 6. Chronic Pancreatitis 7. Chronic pain syndrome and Narcotic dependence, asked to continue Home medicines started pain medicine. 8. Hypokalemia 3.5 given replacement. 9. Thrombocytopenia worsening 55 today following. DVT prophylaxis on Heparin drip DVT Prophylaxis Heparin IV Discussed Condition With Patient. all questions answered to the best of my abilities. As always a pleasure to talk about cases receive input and recommendations by Network Firewall Engineer Doctor Gopi Pradhan. Appreciated. The patient decided to sign AMA some moments later all possible consequences of his action were disclose to the patient by my Team. Discharge Planning Signed AMA Pt Condition on Discharge: Fair Discharge Disposition: Discharge Home Discharge Time: <= 30 minutes Diallo Carey MD May 11, 2017 14:28
--- NOTE | 2017-05-11 20:26 | PD.CARD.PN ---
Subjective Subjective Remarks Patient seen this morning No complaints overnight Objective Medications Current Medications Sodium Chloride (NS Flush) 2 ml UNSCH PRN IVF FLUSH AFTER USING IV ACCESS Last administered on 05/09/17 19:42; Start 05/08/17 at 12:45; Stop 05/11/17 at 13:04 ; Status DC Lorazepam (Ativan Inj) 1 mg ONCE ONCE IV PUSH Last administered on 05/08/17 13:11; Start 05/08/17 at 12:45; Stop 05/08/17 at 12:46; Status DC Sodium Chloride 1,000 ml @ 999 mls/hr BOLUS ONCE IV Last administered on 05/08 13:11; Start 05/08/17 at 12:45; Stop 05/08/17 at 13:45; Status DC Potassium Chloride (KCl) 30 meq ONCE ONCE PO Last administered on 05/08/17 13 :45; Start 05/08/17 at 13:45; Stop 05/08/17 at 13:46; Status DC Aspirin (Aspirin) 325 mg ONCE ONCE PO Last administered on 05/08/17 14:00; Start 05/08/17 at 14:00; Stop 05/08/17 at 14:01; Status DC Nitroglycerin (Nitroglycerin 2% Oint) 1 inch ONCE ONCE TOPICAL Last administered on 05/08/17 14:00; Start 05/08/17 at 14:00; Stop 05/08/17 at 14:01 ; Status DC Heparin Sodium (Porcine) (Heparin Inj) 4,000 units ONCE ONCE IV Last administered on 05/08/17 14:55; Start 05/08/17 at 14:45; Stop 05/08/17 at 14:46 ; Status DC Heparin Sodium (Porcine) (Heparin Inj) 5,000 units UNSCH PRN IV APTT LESS THAN 25; Start 05/08/17 at 20:45; Stop 05/11/17 at 13:04; Status DC Heparin Sodium (Porcine) (Heparin Inj) 2,500 units UNSCH PRN IV APTT 25 TO 39; Start 05/08/17 at 20:45; Stop 05/11/17 at 13:04; Status DC Heparin Sodium/ Dextrose 250 ml @ 0 mls/hr TITRATE IV Last administered on 05/08 14:59; Start 05/08/17 at 14:45; Stop 05/11/17 at 13:04; Status DC Nitroglycerin (Nitrostat Sl) 0.4 mg Q5M PRN SL CHEST PAIN; Start 05/08/17 at 15 :00; Stop 05/11/17 at 13:04; Status DC Ondansetron HCl (Zofran Inj) 4 mg Q6H PRN IV NAUSEA OR VOMITING Last administered on 05/09/17 10:54; Start 05/08/17 at 15:00; Stop 05/11/17 at 13:04 ; Status DC Carvedilol (Coreg) 3.125 mg BID PO Last administered on 05/10/17 20:12; Start 05/08/17 at 21:00; Stop 05/11/17 at 13:04; Status DC Lisinopril (Prinivil) 5 mg DAILY PO Last administered on 05/10/17 08:56; Start 05/09/17 at 09:00; Stop 05/11/17 at 13:04; Status DC Magnesium Sulfate/ Dextrose 100 ml @ 100 mls/hr Q1H IV ; Start 05/08/17 at 15: 00; Stop 05/08/17 at 16:59; Status DC Potassium Chloride (KCl) 40 meq ONCE ONCE PO Last administered on 05/08/17 20 :03; Start 05/08/17 at 15:00; Stop 05/08/17 at 15:04; Status DC Flumazenil (Romazicon Inj) 0.2 mg Q1M PRN IV PUSH SEE LABEL COMMENTS; Start at 15:00; Stop 05/11/17 at 13:04; Status DC Lorazepam (Ativan) 1 mg Q4H PRN PO CIWA 8 - 10 Last administered on 05/11/17 03:48; Start 05/08/17 at 15:00; Stop 05/11/17 at 13:04; Status DC Lorazepam (Ativan Inj) 1 mg Q4H PRN IV PUSH CIWA 8 - 10; Start 05/08/17 at 15: 00; Stop 05/11/17 at 13:04; Status DC Lorazepam (Ativan) 2 mg Q2H PRN PO CIWA 11-14 Last administered on 05/10/17 20 :12; Start 05/08/17 at 15:00; Stop 05/11/17 at 13:04; Status DC Lorazepam (Ativan Inj) 2 mg Q2H PRN IV PUSH CIWA 11-14; Start 05/08/17 at 15:00 ; Stop 05/11/17 at 13:04; Status DC Lorazepam (Ativan Inj) 2 mg Q1H PRN IV PUSH CIWA 15-20; Start 05/08/17 at 15:00 ; Stop 05/11/17 at 13:04; Status DC Lorazepam (Ativan Inj) 2 mg Q15M PRN IV PUSH CIWA > 20 Last administered on 23:03; Start 05/08/17 at 15:00; Stop 05/11/17 at 13:04; Status DC Enalaprilat (Vasotec Inj) 1.25 mg Q6H PRN IV SBP> OR = 180, DBP> OR = 100 Last administered on 05/08/17 15:43; Start 05/08/17 at 15:00; Stop 05/11/17 at 13:04; Status DC Nitroglycerin (Nitroglycerin 2% Oint) 0.5 inch Q6HR TOPICAL Last administered on 05/11/17 05:57; Start 05/08/17 at 18:00; Stop 05/11/17 at 13:04; Status DC Atorvastatin Calcium (Lipitor) 10 mg HS PO Last administered on 05/10/17 20:12 ; Start 05/08/17 at 21:00; Stop 05/11/17 at 13:04; Status DC Potassium Chloride/Sodium Chloride 1,000 ml @ 100 mls/hr Q10H IV ; Start at 16:30; Stop 05/08/17 at 20:16; Status DC Lorazepam (Ativan Inj) 1 mg ONCE ONCE IV PUSH Last administered on 05/08/17 20:37; Start 05/08/17 at 20:30; Stop 05/08/17 at 20:31; Status DC Magnesium Oxide (Mag-Ox) 400 mg ONCE ONCE PO Last administered on 05/08/17 20 :37; Start 05/08/17 at 20:30; Stop 05/08/17 at 20:31; Status DC Sodium Chloride 1,000 ml @ 100 mls/hr Q10H IV Last administered on 05/09/17 09:20; Start 05/08/17 at 20:30; Stop 05/11/17 at 13:04; Status DC Chlordiazepoxide (Librium) 25 mg ONCE ONCE PO Last administered on 05/08/17 23:34; Start 05/08/17 at 23:15; Stop 05/08/17 at 23:17; Status DC Oxycodone HCl (Roxicodone) 10 mg Q6H PRN PO PAIN SCALE 6 TO 10 Last administered on 05/11/17 03:47; Start 05/09/17 at 08:45; Stop 05/11/17 at 13:04 ; Status DC Potassium Chloride 100 ml @ 100 mls/hr Q1H IV ; Start 05/09/17 at 17:00; Stop 05/09/17 at 18:06; Status DC Potassium Chloride (KCl) 40 meq ONCE ONCE PO Last administered on 05/09/17 18 :29; Start 05/09/17 at 18:15; Stop 05/09/17 at 18:16; Status DC Vital Signs / I&O Vital Signs Date Time Temp Pulse Resp B/P (MAP) Pulse Ox O2 Delivery O2 Flow Rate FiO2 05/11/17 11:01 98.5 86 18 113/86 (95) 99 05/11/17 08:30 97.9 82 16 117/74 (88) 100 05/11/17 06:00 91 05/11/17 05:00 68 05/11/17 04:00 66 05/11/17 03:50 98.0 72 20 130/90 (103) 98 05/11/17 03:00 70 05/11/17 02:00 64 05/11/17 01:00 70 05/11/17 00:09 98.0 82 20 125/87 (100) 97 05/11/17 00:00 70 05/10/17 23:00 70 05/10/17 22:00 70 05/10/17 21:00 70 I/O 05/10/17 05/10/17 05/10/17 05/11/17 05/11/17 05/11/17 06:59 14:59 22:59 06:59 14:59 22:59 Intake Total 320 ml 640 ml Output Total 725 ml 1050 ml Balance -405 ml -410 ml Intake Oral 320 ml 640 ml Output Urine Total 725 ml 1050 ml Physical Exam GENERAL: NAD, AAOx3 SKIN: Warm and dry. HEAD: Atraumatic. Normocephalic. EYES: Pupils equal and round. No scleral icterus. No injection or drainage. ENT: No nasal bleeding or discharge. Mucous membranes pink and moist. NECK: Trachea midline. No JVD. CARDIOVASCULAR: Regular rate and rhythm. RESPIRATORY: No accessory muscle use. Clear to auscultation. Breath sounds equal bilaterally. GASTROINTESTINAL: Abdomen soft, non-tender, nondistended. Hepatic and splenic margins not palpable. MUSCULOSKELETAL: Extremities without clubbing, cyanosis, or edema. No obvious deformities. NEUROLOGICAL: Awake and alert. No obvious cranial nerve deficits. Motor grossly within normal limits. Five out of 5 muscle strength in the arms and legs. Normal speech. PSYCHIATRIC: Appropriate mood and affect; insight and judgment normal. Laboratory Laboratory Tests Test 05/11/17 03:40 White Blood Count 4.9 TH/MM3 Red Blood Count 4.68 MIL/MM3 Hemoglobin 12.7 GM/DL Hematocrit 39.7 % Mean Corpuscular Volume 84.9 FL Mean Corpuscular Hemoglobin 27.2 PG Mean Corpuscular Hemoglobin Concent 32.0 % Red Cell Distribution Width 20.8 % Platelet Count 64 TH/MM3 Mean Platelet Volume 10.1 FL Activated Partial Thromboplast Time 24.3 SEC Assessment and Plan Problem List: (1) Elevated troponin ICD Codes: R74.8 - Abnormal levels of other serum enzymes Status: Acute (2) Chest pain ICD Codes: R07.9 - Chest pain, unspecified Status: Acute (3) Alcohol withdrawal ICD Codes: F10.239 - Alcohol dependence with withdrawal, unspecified Status: Acute (4) Alcohol dependence ICD Codes: F10.20 - Alcohol dependence, uncomplicated Status: Acute (5) Chronic abdominal pain ICD Codes: R10.9 - Unspecified abdominal pain; G89.29 - Other chronic pain Status: Acute (6) Gastritis ICD Codes: K29.70 - Gastritis, unspecified, without bleeding Status: Acute (7) Nausea & vomiting ICD Codes: R11.2 - Nausea with vomiting, unspecified Status: Acute (8) Alcoholism ICD Codes: F10.20 - Alcoholism Status: Acute Assessment and Plan 1) Chest pain Atypical for coronary insufficiency and a drop in the troponin Not a candidate for invasive procedure at this time due high dose anticoagulation and DAPT needed for PCI, currently with thrombocytopenia Con't medical management with BB and nitro SL PRN Not a statin candidate as AST 3x greater than normal 2) Thrombocytopenia Most likely due to ETOH history PCP to further work up inpt vs outpt 3) ETOH abuse Attempting to quit 4) Platelets trending up, but overall concern skilled nursing with DAPT, will con't medical management No further cardiovascular issues Gopi Pradhan DO May 11, 2017 20:26
== END 2017-05-11 12:00 | disposition home or self-care (01) | DRG 280 ==
LOC: PHED 12:22 → PHEDA 14:51 → HCIS 22:41
PROVIDERS: ADMIT Internal Medicine; ATTEND Internal Medicine
DX: I21.4 Non-ST elevation (NSTEMI) myocardial infarction (principal); K85.20 Alcohol induced acute pancreatitis without necrosis or infection; D69.6 Thrombocytopenia, unspecified; B19.10 Unspecified viral hepatitis B without hepatic coma; F11.20 Opioid dependence, uncomplicated; K74.60 Unspecified cirrhosis of liver; K86.1 Other chronic pancreatitis; F10.239 Alcohol dependence with withdrawal, unspecified; R56.9 Unspecified convulsions; B19.20 Unspecified viral hepatitis C without hepatic coma; F17.210 Nicotine dependence, cigarettes, uncomplicated; M06.9 Rheumatoid arthritis, unspecified; G89.4 Chronic pain syndrome; M54.9 Dorsalgia, unspecified; E87.6 Hypokalemia; K29.70 Gastritis, unspecified, without bleeding; Z79.82 Long term (current) use of aspirin; Z87.11 Personal history of peptic ulcer disease
CPT/HCPCS: 71010; 76937; 80048; 80061; 80076; 82550; 82552; 83690; 83735; 84443; 84484; 85007; 85025; 85027; 85610; 85730; 93005; 96361; 96374; J1644; J2060; J2405; J7030

== ENCOUNTER 2017-05-19 06:57 | Inpatient (IN) | payer OTHER ==
[2017-05-19] VITALS (8 sets, daily range): BP systolic 135–161; BP diastolic 74–108; PULSE 53–98; RESP 18–22; TEMP 96.8–98.7; O2SAT 95–99
[~2017-05-19] VITALS: Ht 198.1 cm; Wt 82.6 kg
[~2017-05-19 06:57] MED LIST changes: -CHLO25CA9 PO; -CLON0.1T PO; -DICY10 PO; +HYDR-4107 PO; +MORP1TAB24 PO; -PROT40TA PO; -SUCR1TAB PO; -ZOFR4TAB3 SL
[2017-05-19] MEDS ORDERED: PANT20 PO (07:10)
[2017-05-19] MEDS ORDERED: CARA1TAB6 PO (07:10)
--- NOTE | 2017-05-19 07:25 | PD ---
HPI Chief Complaint: Chest Pain Time Seen by Provider: 07:04 Travel History International Travel<30 days: No Contact w/Intl Traveler<30days: No Traveled to known affect area: No History of Present Illness HPI Patient is a 51-year-old male presents emergency Department with chief complaint of chest pain. He is known alcoholic and was discharged from this hospital in mid April after a non-STEMI. At that time he was deemed to not be a candidate for cardiac catheterization setting is low platelet count is a contraindication to heparinization. Patient states she's been having chest pain and left-sided chest without radiation for the past 2 days. His been gradually worsening. He also states he hasn't had a drink of alcohol in 2 days. He states he normally drinks a fifth of vodka a day. Also endorses some nausea and emesis which is become dry heaves but used to be yellow "bile". He also has a history of pancreatitis according to medical records. He provides his own history and does not appear to be confused however certainly is tremulous. States pain is been gradually worsening, moderate in severity. PFSH Past Medical History Hx Anticoagulant Therapy: No Arthritis: Yes (RA) Asthma: No Blood Disorders: Yes (HEPATITIS B AND C NO TREATMENT) Anxiety: Yes Depression: Yes Heart Rhythm Problems: No Cancer: No Cardiovascular Problems: Yes (HTN) High Cholesterol: No Chemotherapy: No Chest Pain: Yes (PALPITATIONS) Congestive Heart Failure: No Cirrhosis: Yes COPD: Yes Cerebrovascular Accident: No Diabetes: No Diminished Hearing: No Endocrine: No Gastrointestinal Disorders: Yes (PANCREATITIS) GERD: Yes Genitourinary: No Headaches: Yes Hepatitis: Yes (B & C) Hiatal Hernia: No Heparin Induced Thrombocytopen: No Herniated Disk: Yes Hypertension: Yes Immune Disorder: No Implanted Vascular Access Dvce: Yes Insomnia: Yes Kidney Stones: No Musculoskeletal: Yes (CHRONIC BACK PAIN) Neurologic: Yes Psychiatric: Yes Reproductive: Yes Respiratory: Yes (COPD / TB) Integumentary: Yes (HX IV DRUG USE) Immunizations Current: Yes Migraines: Yes Pancreatitis: Yes Pneumonia: Yes Radiation Therapy: No Renal Failure: No Seizures: No Sickle Cell Disease: No Sleep Apnea: No Thyroid Disease: No Ulcer: Yes Tetanus Vaccination: > 5 Years Influenza Vaccination: Yes PNEUMOCCOCAL Vaccine (Year): 2 Past Surgical History Abdominal Surgery: Yes (LIVER BIOPSY) AICD: No Arteriovenous Shunt: No Body Medical Devices: STEEL PLATE IN RIGHT ANKLE Cardiac Surgery: No Ear Surgery: No Endocrine Surgery: Yes (LIVER BIOPSY) Eye Surgery: No Genitourinary Surgery: No Gynecologic Surgery: No Hysterectomy: No Insulin Pump: No Joint Replacement: No Neurologic Surgery: No Oral Surgery: No Pacemaker: No Thoracic Surgery: Yes (CHEST TUBE- R/O TB 2009) Tonsillectomy: Yes Other Surgery: Yes (RIGHT ANKLE PLATE/SCREWS) Social History Alcohol Use: Yes (1/5 VODKA DAILY) Tobacco Use: Yes (1/2 PPD) Substance Use: No Allergies-Medications (Allergen,Severity, Reaction): Coded Allergies: prednisone (Unverified Allergy, Severe, Rash, 05/19/17) *MDRO Multi-Drug Resistant Organism (Verified Adverse Reaction, Unknown, Cleared, 05/19/17) MRSA arm wound 2008 MRSA PCR Screen negative 01/06/15 and 05/30/15. Cleared by Infection Control. Reported Meds & Prescriptions Reported Meds & Active Scripts Active Reported Protonix (Pantoprazole Sodium) 20 Mg Tab 20 Mg PO BID Carafate (Sucralfate) 1 Gm Tab 1 Gm PO QID On empty stomach Morphine ER (Morphine Sulfate) 15 Mg Tab Unknown Dose PO BID Hydrocodone-Acetaminophen 5-300 Mg Tab Unknown Dose PO Q4H PRN Review of Systems Except as stated in HPI: all other systems reviewed are Neg Physical Exam Narrative GENERAL: Well-developed well-nourished, tremulous. SKIN: Focused skin assessment warm/dry. HEAD: Atraumatic. Normocephalic. EYES: Pupils equal and round. No scleral icterus. No injection or drainage. ENT: No nasal bleeding or discharge. Mucous membranes pink and moist. NECK: Trachea midline. No JVD. CARDIOVASCULAR: Mildly tachycardic with regular rhythm. No murmur appreciated. RESPIRATORY: No accessory muscle use. Clear to auscultation. Breath sounds equal bilaterally. GASTROINTESTINAL: Abdomen soft, non-tender, nondistended. Hepatic and splenic margins not palpable. MUSCULOSKELETAL: No obvious deformities. No clubbing. No cyanosis. No edema. NEUROLOGICAL: Awake and alert and oriented. No obvious cranial nerve deficits. Motor grossly within normal limits. Normal speech. PSYCHIATRIC: Appropriate mood and affect; insight and judgment normal. Data Data Last Documented VS Vital Signs Date Time Temp Pulse Resp B/P (MAP) Pulse Ox O2 Delivery O2 Flow Rate FiO2 05/19/17 10:15 92 18 135/93 (107) 96 Room Air 05/19/17 07:10 97.5 Orders Orders Electrocardiogram (05/19/17 07:21) Ckmb (Isoenzyme) Profile (05/19/17 07:21) Complete Blood Count With Diff (05/19/17 07:21) Comprehensive Metabolic Panel (05/19/17 07:21) Magnesium (Mg) (05/19/17 07:21) Prothrombin Time / Inr (Pt) (05/19/17 07:21) Act Partial Throm Time (Ptt) (05/19/17 07:21) Troponin I (05/19/17 07:21) Lipase (05/19/17 07:21) Chest, Single Ap (05/19/17 07:21) Ecg Monitoring (05/19/17 07:21) Iv Access Insert/Monitor (05/19/17 07:21) Oximetry (05/19/17 07:21) Oxygen Administration (05/19/17 07:21) Lorazepam Inj (Ativan Inj) (05/19/17 07:30) Thiamine Inj (Thiamine Inj) (05/19/17 07:30) Ondansetron Inj (Zofran Inj) (05/19/17 08:00) CKMB (05/19/17 07:25) CKMB% (05/19/17 07:25) Promethazine Inj (Phenergan Inj) (05/19/17 08:30) Aspirin Chew (Aspirin Chew) (05/19/17 09:45) Admit Order (Ed Use Only) (05/19/17 ) Labs Laboratory Tests Test 05/19/17 07:25 White Blood Count 4.9 TH/MM3 Red Blood Count 4.83 MIL/MM3 Hemoglobin 13.1 GM/DL Hematocrit 40.6 % Mean Corpuscular Volume 84.0 FL Mean Corpuscular Hemoglobin 27.0 PG Mean Corpuscular Hemoglobin Concent 32.1 % Red Cell Distribution Width 21.5 % Platelet Count 314 TH/MM3 Mean Platelet Volume 7.1 FL Neutrophils (%) (Auto) 53.0 % Lymphocytes (%) (Auto) 34.0 % Monocytes (%) (Auto) 8.9 % Eosinophils (%) (Auto) 1.5 % Basophils (%) (Auto) 2.6 % Neutrophils # (Auto) 2.6 TH/MM3 Lymphocytes # (Auto) 1.7 TH/MM3 Monocytes # (Auto) 0.4 TH/MM3 Eosinophils # (Auto) 0.1 TH/MM3 Basophils # (Auto) 0.1 TH/MM3 CBC Comment DIFF FINAL Differential Comment Prothrombin Time 10.8 SEC Prothromb Time International Ratio 1.0 RATIO Activated Partial Thromboplast Time 26.9 SEC Blood Urea Nitrogen 9 MG/DL Creatinine 0.76 MG/DL Random Glucose 125 MG/DL Total Protein 7.5 GM/DL Albumin 3.8 GM/DL Calcium Level 7.8 MG/DL Magnesium Level 2.0 MG/DL Alkaline Phosphatase 93 U/L Aspartate Amino Transf (AST/SGOT) 336 U/L Alanine Aminotransferase (ALT/SGPT) 178 U/L Total Bilirubin 0.5 MG/DL Sodium Level 141 MEQ/L Potassium Level 4.1 MEQ/L Chloride Level 106 MEQ/L Carbon Dioxide Level 25.2 MEQ/L Anion Gap 10 MEQ/L Estimat Glomerular Filtration Rate 108 ML/MIN Total Creatine Kinase 102 U/L Creatine Kinase MB 0.7 NG/ML Troponin I LESS THAN 0.02 NG/ML Lipase 378 U/L Ethyl Alcohol Level 51 MG/DL MDM Medical Decision Making Medical Screen Exam Complete: Yes Emergency Medical Condition: Yes Interpretation(s) EKG shows sinus rhythm at a rate of 97, normal axis, intervals within normal limits. Deep Q waves in V1 and V2 could be significant for prior septal [place]. Differential Diagnosis Alcohol withdrawal, ACS, pancreatitis, electro-light abnormality, tremor Narrative Course patient roomed in emergency department, labs are actually reassuring lipase normal, troponin normal. Aspirin was initially held because patient has a history of thrombocytopenia but platelets returned at greater than 300,000 aspirin was given. He's had multiple episodes of emesis in the emergency department despite Zofran and Phenergan given. He is also given normal saline finding. Patient is not having any bloody emesis. I discussed with him at length the issue of his elevated troponin in the past and the possibility that he has significant coronary artery disease but given his thrombocytopenia he wasn't a candidate for catheter. This was attributed his alcoholism and I discussed with him that until his alcoholism is resolved he is at risk of sudden cardiac . 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 He will be admitted for intractable nausea vomiting and chest pain and alcohol withdrawal. The patient was discussed with Dr. Silva at length. Diagnosis Primary Impression: Alcohol withdrawal Qualified Codes: F10.230 - Alcohol dependence with withdrawal, uncomplicated Additional Impressions: Intractable nausea and vomiting Qualified Codes: R11.2 - Nausea with vomiting, unspecified Chest pain Qualified Codes: R07.9 - Chest pain, unspecified Admitting Information Admitting Physician Requests: Observation Condition: Stable Faizan Valle MD May 19, 2017 07:25
[2017-05-19] MEDS ORDERED: SODIUM CHLORIDE 0.9% FLUSH 10 ML FLUSH IVF PRN (07:30)
[2017-05-19] MEDS ORDERED: LORazepam 2 MG/ML VIAL IV PUSH ONE (07:30)
[2017-05-19] MEDS ORDERED: THIAMINE INJ 100 MG in SODIUM CHLORIDE 0.9% INJ 100 ML IV ONE ×2 (07:30→10:30)
[2017-05-19 07:32] LABS: AUTOMATED NEUTROPHIL # 2.6 TH/MM3 (1.8-7.7); BASOPHIL # 0.1 TH/MM3 (0-0.2); BASOPHIL % 2.6 % (0.0-2.0); EOSINOPHIL # 0.1 TH/MM3 (0-0.4); EOSINOPHIL % 1.5 % (0.0-4.0); HEMATOCRIT 40.6 % (39.0-51.0); HEMO FLAGS DIFF FINAL; LYMPHOCYTE # 1.7 TH/MM3 (1.0-4.8); MEAN CORPUSCULAR HGB CONC 32.1 % (32.0-36.0); MONO % 8.9 % (0.0-8.0); PLATELET COUNT 314 TH/MM3 (150-450); RED BLOOD COUNT 4.83 MIL/MM3 (4.50-5.90); RED CELL DISTRIBUTION WIDTH 21.5 % (11.6-17.2); WHITE BLOOD COUNT 4.9 TH/MM3 (4.0-11.0)
[2017-05-19 07:39] LABS: CHLORIDE 106 MEQ/L (98-107); POTASSIUM 4.1 MEQ/L (3.5-5.1); SODIUM (NA) 141 MEQ/L (136-145)
[2017-05-19 07:43] LABS: ANION GAP 10 MEQ/L (5-15); APTT (PATIENT) 26.9 SEC (24.3-30.1); BICARBONATE 25.2 MEQ/L (21.0-32.0); BLOOD UREA NITROGEN 9 MG/DL (7-18); PROTHROMBIN TIME - PATIENT 10.8 SEC (9.8-11.6)
[2017-05-19 07:46] LABS: ALT (GPT) 178 U/L (12-78); AST (GOT) 336 U/L (15-37); GLOMERULAR FILTRATION RATE 108 ML/MIN (>89)
[2017-05-19 07:47] LABS: TOTAL BILIRUBIN ADULT 0.5 MG/DL (0.2-1.0)
[2017-05-19 07:49] LABS: ALKALINE PHOSPHATASE 93 U/L (45-117); CREATINE KINASE 102 U/L (39-308)
--- NOTE | 2017-05-19 07:53 | RADRPT ---
EXAM DATE/TIME: 05/19/2017 07:41 [facility] COMPARISON: CHEST PA & LAT, October 10, 2013, 15:45. CHEST SINGLE AP, November 18, 2016, 7:12. CT ABDOMEN & PEL VIS W CONTRAST, April 13, 2017, 9:16. CHEST SINGLE AP, May 08, 2017, 12:38. INDICATIONS : Chest Pain MEDICAL HISTORY : Hepatitis B. Hepatitis C. Hypertension. COPD, Pancreatitis, TB SURGICAL HISTORY : Lt lung chest tube, Rt ankle ENCOUNTER: Initial ACUITY: 3 days PAIN SCORE: 6/10 LOCATION: Bilateral chest FINDINGS: There are granulomatous calcifications seen over the upper lung ty bilaterally. Stable nodular de nsity over the right lung apex. Stable slight blunting of left costophrenic angle. Minimal blunting o f the right costophrenic angle which appears recurrent. Cardiac contours are grossly stable. CONCLUSION: Slight blunting of the right costophrenic angle Wesly Hines MD on May 19, 2017 at 7:47 Board Certified Radiologist. This report was verified electronically.
[2017-05-19] MEDS ORDERED: ONDANSETRON HCL 4 MG/2 ML VIAL IV PUSH ONE (08:00)
[2017-05-19 08:01] LABS: CKMB 0.7 NG/ML (0.5-3.6)
[2017-05-19] MEDS ORDERED: PROMETHAZINE INJ 25 MG/ML VIAL IM ONE (08:30)
[2017-05-19] MEDS ORDERED: ASPIRIN 81 MG CHEW TAB CHEW ONE (09:45)
[2017-05-19] MEDS ORDERED: LORazepam 1 MG TAB PO PRN (10:30)
[2017-05-19] MEDS ORDERED: SODIUM CHLORIDE 0.9% FLUSH 10 ML FLUSH IV FLUSH PRN (10:30)
[2017-05-19] MEDS ORDERED: LORazepam 2 MG/ML VIAL IV PUSH PRN ×3 (10:30)
[2017-05-19] MEDS ORDERED: cloNIDine HCL 0.1 MG TAB PO PRN (10:30)
[2017-05-19] MEDS ORDERED: FLUMAZENIL 0.5 MG/5 ML VIAL IV PUSH PRN (10:30)
[2017-05-19] MEDS: SODIUM CHLOR 0.9% 1000 ML INJ 1,000 ML IV SCH ×2 (11:24→20:13)
[2017-05-19] MEDS: LORazepam 2 MG/ML VIAL IV PUSH PRN ×5 (12:26→23:15)
--- NOTE | 2017-05-19 14:10 | HHI.HP ---
[facility] Service [facility] Primary Care Physician Maribell Chang MD Admission Diagnosis Alcohol Withdrawal/Chest pain Diagnoses: Travel History International Travel<30 Days: No Contact w/Intl Traveler <30 Da: No Traveled to Known Affected Are: No History of Present Illness 51-year-old male with history of alcoholism, liver cirrhosis, hepatitis c, b, who presents with intractable bilious, nonbloody vomiting, as well as constant sharp substernal chest pain radiating up and down his esophagus, beginning around midnight last night. Patient says he typically drinks a fifth of vodka daily, however his last drink was 2 days ago. He feels he is withdrawing from alcohol. Denies any hematemesis or coffee-ground emesis. Denies any melena. He reports chills, however no measured fevers. Denies any diarrhea or constipation. Denies any dysuria. Recent admission 05/08 reviewed. Review of Systems Performed and negative except for history of present illness and past medical history. Past Family Social History Past Medical History ETOH abuse Chronic Pancreatitis Hepatitis B and C Duodenal Ulcers Tobacco Abuse History of IV drug use Chronic back pain Rheumatoid Arthritis Steel plate status post right ankle fracture Chest tube for pneumothorax History of NSTEMI while withdrawing from alcohol on 05/08. Not a candidate for cardiac catheterization secondary to thrombocytopenia, liver disease. Past Surgical History Tonsillectomy EGD June 2016 Liver Biopsy Right ankle surgery Reported Medications Reported Meds & Active Scripts Active Reported Protonix (Pantoprazole Sodium) 20 Mg Tab 20 Mg PO BID Carafate (Sucralfate) 1 Gm Tab 1 Gm PO QID On empty stomach Morphine ER (Morphine Sulfate) 15 Mg Tab Unknown Dose PO BID Hydrocodone-Acetaminophen 5-300 Mg Tab Unknown Dose PO Q4H PRN Allergies: Coded Allergies: prednisone (Unverified Allergy, Severe, Rash, 05/19/17) *MDRO Multi-Drug Resistant Organism (Verified Adverse Reaction, Unknown, Cleared, 05/19/17) MRSA arm wound 2008 MRSA PCR Screen negative 01/06/15 and 05/30/15. Cleared by Infection Control. Family History Father is estranged. Mother with history of rheumatoid arthritis. Social History Patient smokes a half a pack a cigarettes a day since the age of 18. Drinks a fifth of vodka of vodka daily. Denies any illicit drugs Physical Exam Vital Signs Vital Signs Date Time Temp Pulse Resp B/P (MAP) Pulse Ox O2 Delivery O2 Flow Rate FiO2 05/19/17 12:50 97.9 92 19 150/98 (115) 98 05/19/17 11:00 05/19/17 10:15 92 18 135/93 (107) 96 Room Air 05/19/17 08:15 98 18 142/95 (111) 95 Room Air 05/19/17 07:10 97.5 98 22 145/100 (115) 99 Room Air 05/19/17 07:00 97.5 98 22 145/100 (115) 99 05/19/17 07:00 99 Room Air 05/19/17 07:00 99 Room Air Physical Exam GENERAL: This is a well-nourished, well-developed patient, in no apparent distress. He is alert and oriented 3. SKIN: No rashes, ecchymoses or lesions. Cool and dry. HEAD: Atraumatic. Normocephalic. No temporal or scalp tenderness. EYES: Pupils equal round and reactive. Extraocular motions intact. No scleral icterus. No injection or drainage. ENT: Nose without bleeding, purulent drainage or septal hematoma. Throat without erythema, tonsillar hypertrophy or exudate. Uvula midline. Airway patent. NECK: Trachea midline. No JVD or lymphadenopathy. Supple, nontender, no meningeal signs. CARDIOVASCULAR: Regular rate and rhythm without murmurs, gallops, or rubs. RESPIRATORY: Clear to auscultation. Breath sounds equal bilaterally. No wheezes , rales, or rhonchi. GASTROINTESTINAL: Abdomen soft, non-tender, nondistended. No hepato-splenomegaly , or palpable masses. No guarding. MUSCULOSKELETAL: Extremities without clubbing, cyanosis, or edema. No joint tenderness, effusion, or edema noted. No calf tenderness. Negative Homans sign bilaterally. NEUROLOGICAL: Awake and alert. Cranial nerves II through XII intact. Motor and sensory grossly within normal limits. Five out of 5 muscle strength in all muscle groups. Normal speech. Patient does have tremor bilaterally. Laboratory Laboratory Tests Test 05/19/17 07:25 White Blood Count 4.9 Red Blood Count 4.83 Hemoglobin 13.1 Hematocrit 40.6 Mean Corpuscular Volume 84.0 Mean Corpuscular Hemoglobin 27.0 Mean Corpuscular Hemoglobin Concent 32.1 Red Cell Distribution Width 21.5 Platelet Count 314 Mean Platelet Volume 7.1 Neutrophils (%) (Auto) 53.0 Lymphocytes (%) (Auto) 34.0 Monocytes (%) (Auto) 8.9 Eosinophils (%) (Auto) 1.5 Basophils (%) (Auto) 2.6 Neutrophils # (Auto) 2.6 Lymphocytes # (Auto) 1.7 Monocytes # (Auto) 0.4 Eosinophils # (Auto) 0.1 Basophils # (Auto) 0.1 CBC Comment DIFF FINAL Differential Comment Prothrombin Time 10.8 Prothromb Time International Ratio 1.0 Activated Partial Thromboplast Time 26.9 Blood Urea Nitrogen 9 Creatinine 0.76 Random Glucose 125 Total Protein 7.5 Albumin 3.8 Calcium Level 7.8 Magnesium Level 2.0 Alkaline Phosphatase 93 Aspartate Amino Transf (AST/SGOT) 336 Alanine Aminotransferase (ALT/SGPT) 178 Total Bilirubin 0.5 Sodium Level 141 Potassium Level 4.1 Chloride Level 106 Carbon Dioxide Level 25.2 Anion Gap 10 Estimat Glomerular Filtration Rate 108 Total Creatine Kinase 102 Creatine Kinase MB 0.7 Troponin I LESS THAN 0.02 Lipase 378 Ethyl Alcohol Level 51 Result Diagram: 05/19/17 0725 05/19/1725 Caprini VTE Risk Assessment Caprini VTE Risk Assessment: No/Low Risk (score <= 1) Caprini Risk Assessment Model Point Value = 1 Point Value = 2 Point Value = 3 Point Value = 5 Age 41-60 Minor surgery BMI > 25 kg/m2 Swollen legs Varicose veins or History of unexplained or recurrent spontaneous Oral contraceptives or hormone replacement Sepsis (< 1 month) Serious lung disease, including pneumonia (< 1 month) Abnormal pulmonary function Acute myocardial infarction Congestive heart failure (< 1 month) History of inflammatory bowel disease Medical patient at bed rest Age 61-74 Arthroscopic surgery Major open surgery (> 45 min) Laparoscopic surgery (> 45 min) Malignancy Confined to bed (> 72 hours) Immobilizing plaster cast Central venous access Age >= 75 History of VTE Family history of VTE Factor V Leiden Prothrombin [id number] Lupus anticoagulant Anticardiolipin antibodies Elevated serum homocysteine Heparin-induced thrombocytopenia Other congenital or acquired thrombophilia Stroke (< 1 month) Elective arthroplasty Hip, pelvis, or leg fracture Acute spinal cord injury (< 1 month) Prophylaxis Regimen Total Risk Factor Score Risk Level Prophylaxis Regimen 0-1 Low Early ambulation 2 Moderate Order ONE of the following: *Sequential Compression Device (SCD) *Heparin 5000 units SQ BID 3-4 Higher Order ONE of the following medications: *Heparin 5000 units SQ TID *Enoxaparin/Lovenox 40 mg SQ daily (WT < 150 kg, CrCl > 30 mL/min) *Enoxaparin/Lovenox 30 mg SQ daily (WT < 150 kg, CrCl > 10-29 mL/min) *Enoxaparin/Lovenox 30 mg SQ BID (WT < 150 kg, CrCl > 30 mL/min) AND/OR *Sequential Compression Device (SCD) 5 or more Highest Order ONE of the following medications: *Heparin 5000 units SQ TID (Preferred with Epidurals) *Enoxaparin/Lovenox 40 mg SQ daily (WT < 150 kg, CrCl > 30 mL/min) *Enoxaparin/Lovenox 30 mg SQ daily (WT < 150 kg, CrCl > 10-29 mL/min) *Enoxaparin/Lovenox 30 mg SQ BID (WT < 150 kg, CrCl > 30 mL/min) AND *Sequential Compression Device (SCD) Assessment and Plan Assessment and Plan //Alcohol withdrawal with history of seizures -In acute withdrawal. -CIWA protocol ordered. //Atypical Chest pain. -Previously with non-ST elevation PR on last admission. Not candidate secondary to liver disease, thrombocytopenia at that time. -Without evidence of hematemesis. This is likely secondary to vomiting from alcohol/alcohol withdrawal. -First troponin negative. Unlikely cardiac. PPI. Continue to monitor. //History of NSTMEMI on last admission -2/2 to alcohol withdrawal. -Not a candidate for anticoagulation -Troponin less than 0.02. -On clonidine for withdrawal. Consider starting beta ladarius, aspirin. //Nonbloody nausea and vomiting. Antiemetics as needed. //Liver cirrhosis. //Hepatitis B, hepatitis C. -Liver enzymes elevated. Continue to monitor. //Tobacco abuse. Cessation counseling provided. //DVT prophylaxis. Discussed Condition With Patient, nurse, ED physician. Physician Certification 2 Midnight Certification Type: Admission for Inpatient Services Order for Inpatient Services The services are ordered in accordance with Medicare regulations or non- Medicare payer requirements, as applicable. In the case of services not specified as inpatient-only, they are appropriately provided as inpatient services in accordance with the 2-midnight benchmark. Estimated LOS (days): 2 days is the estimated time the patient will need to remain in the hospital, assuming treatment plan goals are met and no additional complications. Post-Hospital Plan: Not yet determined Ryan Silva MD May 19, 2017 14:10
[2017-05-19] MEDS: ONDANSETRON HCL 4 MG/2 ML VIAL IV PRN ×2 (14:13→20:13)
--- NOTE | 2017-05-19 14:29 | EKG ---
Date Performed: 05/19/2017 Time Performed: 07:02:04 PTAGE: 51 years EKG: Sinus rhythm SEPTAL MYOCARDIAL INFARCTION ABNORMAL ECG INTERPRETATION BASED ON A DEFAULT AGE OF 40 YEARS Compared to prior tracing no significant change PREVIOUS TRACING : 05/09/2017 00.56.12 DOCTOR: Elver Machuca Interpretating Date/Time 05/19/2017 14:30:05
[2017-05-19] MEDS: SODIUM CHLORIDE 0.9% FLUSH 10 ML FLUSH IV FLUSH SCH (20:13)
[2017-05-20] VITALS: BP_SYST 140; BP_SYST 145; BP_DIAS 102; BP_DIAS 93; PULSE 78; PULSE 81; RESP 16; RESP 18; TEMP 97.8; TEMP 98; O2SAT 96; O2SAT 97
[2017-05-20] MEDS: SODIUM CHLOR 0.9% 1000 ML INJ 1,000 ML IV SCH ×2 (01:30→17:00)
[2017-05-20] MEDS: LORazepam 2 MG/ML VIAL IV PUSH PRN ×9 (01:36→22:35)
[2017-05-20] MEDS: ONDANSETRON HCL 4 MG/2 ML VIAL IV PRN ×3 (05:18→20:46)
[2017-05-20] MEDS: FOLIC ACID 1 MG TAB PO SCH (07:48)
[2017-05-20] MEDS: MULTIVITAMINS/MINERALS THERAPEUTIC TAB PO SCH (07:49)
[2017-05-20] MEDS: THIAMINE HCL 100 MG TAB PO SCH (07:49)
[2017-05-20] MEDS: SODIUM CHLORIDE 0.9% FLUSH 10 ML FLUSH IV FLUSH SCH ×2 (07:49→20:47)
[2017-05-20 08:00] VITALS: BP 147/93; PULSE 90; RESP 18; TEMP 97.5; O2SAT 99
--- NOTE | 2017-05-20 09:38 | HHI.PR ---
Subjective Remarks Follow up for Alcohol withdrawal, nausea, vomiting. Patient is resting in bed. He ate all of his breakfast. However, he says he still has nausea. He also reports persistent chest pain. No fever, chills. Objective Vitals Vital Signs Date Time Temp Pulse Resp B/P (MAP) Pulse Ox O2 Delivery O2 Flow Rate FiO2 05/20/17 08:00 97.5 90 18 147/93 (111) 99 05/20/17 00:00 98.0 81 16 140/102 (115) 96 05/19/17 20:00 56 05/19/17 20:00 96.8 90 20 158/108 (125) 99 05/19/17 17:52 98.7 53 19 152/97 (115) 97 05/19/17 12:50 97.9 92 19 150/98 (115) 98 05/19/17 11:00 05/19/17 10:15 92 18 135/93 (107) 96 Room Air I/O 05/19/17 05/19/17 05/19/17 05/20/17 05/20/17 05/20/17 07:00 15:00 23:00 07:00 15:00 23:00 Intake Total 201 ml 668 ml 280 ml Output Total 226 ml 625 ml Balance 201 ml 442 ml 280 ml -625 ml Intake Oral 280 ml IV Total 201 ml 668 ml Output Urine Total 225 ml 625 ml Stool Total 1 ml # Voids 2 1 # Bowel Movements 0 Result Diagram: 05/19/1772405/19/17724 Imaging Last Impressions Chest X-Ray 05/19/17720 Signed Impressions: Service Date/Time: Friday, May 19, 2017 07:41 - CONCLUSION: Slight blunting of the right costophrenic angle Wesly Hines MD Objective Remarks GENERAL: AOX3, NAD. SKIN: Warm and dry. HEAD: Normocephalic. EYES: No scleral icterus. No injection or drainage. NECK: Supple, trachea midline. No JVD or lymphadenopathy. CARDIOVASCULAR: Regular rate and rhythm without murmurs, gallops, or rubs. RESPIRATORY: Breath sounds equal bilaterally. No accessory muscle use. GASTROINTESTINAL: Abdomen soft, non-tender, nondistended. MUSCULOSKELETAL: No cyanosis, or edema. Mild tremors on extension of upper ext. BACK: Nontender without obvious deformity. No CVA tenderness. Procedures None. A/P Problem List: (1) Nausea & vomiting ICD Code: R11.2 - Nausea with vomiting, unspecified Status: Acute (2) Alcohol withdrawal ICD Code: F10.239 - Alcohol dependence with withdrawal, unspecified Status: Acute (3) Hepatitis C virus ICD Code: B19.20 - Hepatitis C virus Status: Acute Assessment and Plan Mr. Pink, 51 with a history of alcoholic liver disease who was admitted on due to intractable bilious, non-bloody vomiting and substernal chest pain radiating up and down his esophagus. Last drink two days prior to this admission. Alcohol withdrawal with history of seizures - Continue CIWA protocol. Seizure is likely due to alcohol. - Still has some upper ext tremors. - Discussed with patient regarding Theo Carter. - Continue Folic Acid, Thiamine, Multivitamins. - Continue NS for now. Atypical Chest pain. - Without evidence of hematemesis. This is likely secondary to vomiting from alcohol/alcohol withdrawal. - First troponin negative. Unlikely cardiac. PPI. Liver cirrhosis. Hepatitis B, hepatitis C. - AST, ALT elevated. - Will obtain CMP in the AM. Tobacco abuse. Cessation counseling provided. Full code. SCDs. Discharge plan: If patient does not require any further Ativan per CIWA protocol , he can likely be discharged. Problem Qualifiers (1) Alcohol withdrawal: Qualified Codes: F10.230 - Alcohol dependence with withdrawal, uncomplicated Joseph Fuentes DO May 20, 2017 09:38
[2017-05-20 12:00] VITALS: BP 134/88; PULSE 77; RESP 19; TEMP 96.7; O2SAT 98
[2017-05-20 16:00] VITALS: BP 125/93; PULSE 66; RESP 18; TEMP 95.2; O2SAT 99
[2017-05-20 20:00] VITALS: BP 131/86; PULSE 113; RESP 20; TEMP 97.2; O2SAT 97
[2017-05-20] MEDS ORDERED: diphenhydrAMINE HCL 25 MG CAP PO PRN (20:15)
[2017-05-20] MEDS ORDERED: IBUPROFEN 400 MG TAB PO ONE (21:00)
[2017-05-21] MEDS: LORazepam 2 MG/ML VIAL IV PUSH PRN ×9 (00:29→20:41)
[2017-05-21 00:34] VITALS: BP 132/96; PULSE 78
[2017-05-21] MEDS: SODIUM CHLOR 0.9% 1000 ML INJ 1,000 ML IV SCH ×3 (03:00→10:37)
[2017-05-21 08:00] VITALS: BP 140/83; PULSE 88; RESP 18; TEMP 96.9; O2SAT 98
[2017-05-21] MEDS: FOLIC ACID 1 MG TAB PO SCH (08:22)
[2017-05-21] MEDS: ONDANSETRON HCL 4 MG/2 ML VIAL IV PRN (08:22)
[2017-05-21] MEDS: SODIUM CHLORIDE 0.9% FLUSH 10 ML FLUSH IV FLUSH SCH ×2 (08:22→20:48)
[2017-05-21] MEDS: THIAMINE HCL 100 MG TAB PO SCH (08:22)
[2017-05-21] MEDS: PANTOPRAZOLE SOD 40 MG DELAYED RELEASE TAB PO SCH (08:22)
[2017-05-21] MEDS: MULTIVITAMINS/MINERALS THERAPEUTIC TAB PO SCH (08:22)
[2017-05-21 08:28] LABS: CHLORIDE 107 MEQ/L (98-107); POTASSIUM 3.8 MEQ/L (3.5-5.1); SODIUM (NA) 141 MEQ/L (136-145)
[2017-05-21 08:32] LABS: ANION GAP 8 MEQ/L (5-15); BICARBONATE 26.1 MEQ/L (21.0-32.0); BLOOD UREA NITROGEN 9 MG/DL (7-18)
[2017-05-21 08:35] LABS: ALT (GPT) 185 U/L (12-78); AST (GOT) 374 U/L (15-37); GLOMERULAR FILTRATION RATE 110 ML/MIN (>89)
[2017-05-21 08:38] LABS: ALKALINE PHOSPHATASE 79 U/L (45-117)
[2017-05-21] MEDS ORDERED: IBUPROFEN 400 MG TAB PO PRN (08:45)
[2017-05-21 12:00] VITALS: BP 114/80; PULSE 83; RESP 20; TEMP 96.8; O2SAT 99
[2017-05-21 12:43] LABS: AUTOMATED NEUTROPHIL # 3.2 TH/MM3 (1.8-7.7); BASOPHIL # 0.1 TH/MM3 (0-0.2); BASOPHIL % 1.8 % (0.0-2.0); EOSINOPHIL # 0.1 TH/MM3 (0-0.4); EOSINOPHIL % 2.9 % (0.0-4.0); HEMATOCRIT 41.5 % (39.0-51.0); HEMO FLAGS DIFF FINAL; LYMPH % 26.7 % (9.0-44.0); LYMPHOCYTE # 1.4 TH/MM3 (1.0-4.8); MEAN CELL VOLUME 85.3 FL (80.0-100.0); MEAN CORPUSCULAR HEMOGLOBIN 27.2 PG (27.0-34.0); MEAN CORPUSCULAR HGB CONC 31.9 % (32.0-36.0); MONO % 6.9 % (0.0-8.0); NEUT % 61.7 % (16.0-70.0); PLATELET COUNT 233 TH/MM3 (150-450); RED BLOOD COUNT 4.86 MIL/MM3 (4.50-5.90); RED CELL DISTRIBUTION WIDTH 20.5 % (11.6-17.2); WHITE BLOOD COUNT 5.1 TH/MM3 (4.0-11.0)
[2017-05-21] MEDS ORDERED: ALUMINUM/MAGNESIUM/SIMETH 30 ML CUP PO ONE (12:45)
[2017-05-21] MEDS: DULoxetine HCl DR 20 MG CAP PO SCH (13:00)
--- NOTE | 2017-05-21 13:57 | HHI.PR ---
Subjective Remarks Discussed with nursing, thinks that the patient has true mckenzie withdrawal tremors, does not think that he is taking. Patient himself says he is concerned about his heart and would like further cardiac workup if warranted. Says he still has vague chest pain, when asked about exertion, he does not answer the questions directly and just reports a chronic intermittent nature. Objective Vital Signs Date Time Temp Pulse Resp B/P (MAP) Pulse Ox O2 Delivery O2 Flow Rate FiO2 05/21/17 12:00 96.8 83 20 114/80 (91) 99 05/21/17 08:00 96.9 88 18 140/83 (102) 98 05/21/17 00:34 78 132/96 (108) 05/20/17 20:00 97.2 113 20 131/86 (101) 97 05/20/17 16:00 95.2 66 18 125/93 (104) 99 I/O 05/20/17 05/20/17 05/20/17 05/21/17 05/21/17 05/21/17 07:00 15:00 23:00 07:00 15:00 23:00 Intake Total 280 ml 1350 ml 880 ml Output Total 625 ml 425 ml Balance 280 ml -625 ml 925 ml 880 ml Intake Oral 280 ml 880 ml IV Total 1350 ml Output Urine Total 625 ml 425 ml # Voids 1 4 # Bowel Movements 0 0 Result Diagram: 05/21/17 0730 05/21/17 0730 Imaging Laboratory Tests Test 05/21/17 07:30 White Blood Count 5.1 TH/MM3 (4.0-11.0) Red Blood Count 4.86 MIL/MM3 (4.50-5.90) Hemoglobin 13.2 GM/DL (13.0-17.0) Hematocrit 41.5 % (39.0-51.0) Mean Corpuscular Volume 85.3 FL (80.0-100.0) Mean Corpuscular Hemoglobin 27.2 PG (27.0-34.0) Mean Corpuscular Hemoglobin Concent 31.9 % (32.0-36.0) Red Cell Distribution Width 20.5 % (11.6-17.2) Platelet Count 233 TH/MM3 (150-450) Mean Platelet Volume 8.6 FL (7.0-11.0) Neutrophils (%) (Auto) 61.7 % (16.0-70.0) Lymphocytes (%) (Auto) 26.7 % (9.0-44.0) Monocytes (%) (Auto) 6.9 % (0.0-8.0) Eosinophils (%) (Auto) 2.9 % (0.0-4.0) Basophils (%) (Auto) 1.8 % (0.0-2.0) Neutrophils # (Auto) 3.2 TH/MM3 (1.8-7.7) Lymphocytes # (Auto) 1.4 TH/MM3 (1.0-4.8) Monocytes # (Auto) 0.3 TH/MM3 (0-0.9) Eosinophils # (Auto) 0.1 TH/MM3 (0-0.4) Basophils # (Auto) 0.1 TH/MM3 (0-0.2) CBC Comment DIFF FINAL Differential Comment Blood Urea Nitrogen 9 MG/DL (7-18) Creatinine 0.75 MG/DL (0.60-1.30) Random Glucose 111 MG/DL (74-106) Total Protein 7.4 GM/DL (6.4-8.2) Albumin 3.5 GM/DL (3.4-5.0) Calcium Level 8.5 MG/DL (8.5-10.1) Alkaline Phosphatase 79 U/L (45-117) Aspartate Amino Transf (AST/SGOT) 374 U/L (15-37) Alanine Aminotransferase (ALT/SGPT) 185 U/L (12-78) Total Bilirubin 2.0 MG/DL (0.2-1.0) Sodium Level 141 MEQ/L (136-145) Potassium Level 3.8 MEQ/L (3.5-5.1) Chloride Level 107 MEQ/L (98-107) Carbon Dioxide Level 26.1 MEQ/L (21.0-32.0) Anion Gap 8 MEQ/L (5-15) Estimat Glomerular Filtration Rate 110 ML/MIN (>89) Objective Remarks GENERAL: No acute distress apart from looking mildly worried CARDIOVASCULAR: Regular rate and rhythm without murmurs, gallops, or rubs. RESPIRATORY: Breath sounds equal and clear bilaterally. Unlabored breathing MUSCULOSKELETAL: No cyanosis, or edema. touching his flinches when palpating his chest wall but then calms down, I do not appreciate any mckenzie tenderness to palpation over the left-sided chest wall Neuro: I do not note any obvious resting tremors and the patient emphasis upper extremities, no facial droop nor slurred speech A/P Assessment and Plan Mr. Pink, 51 with a history of alcoholic liver disease who was admitted on due to intractable bilious, non-bloody vomiting and substernal chest pain radiating up and down his esophagus. Last drink two days prior to this admission. Alcohol withdrawal with history of seizures - Continue CIWA protocol. Seizure is likely due to alcohol. - upp ext tremors improving - Discussed with patient regarding Theo Carter. - Continue Folic Acid, Thiamine, Multivitamins. - Continue will lower rate. Atypical Chest pain. - Without evidence of hematemesis. This is likely secondary to vomiting from alcohol/alcohol withdrawal. - First troponin negative. Had recent cardiac evaluation at [facility] earlier this month, was not a candidate for revascularization 2/2 thrombocytopenia. However his levels have improved, discuss with cardiology here who have recommended to proceed with a nuclear stress test (FOR TOMORROW, NPO AFTER MIDNIGHT) pending stable platelets. starting baby dose aspirin since i don't suspect any mckenzie ACS at this time but stable angina can't be ruled out. Unable to start statin given elevated LFTs. To consult cards if positive stress and stable platelets. Liver cirrhosis. Hepatitis B, hepatitis C. - trend LFTS (still elevated) Tobacco abuse. Cessation counseling provided. Full code.low dose lovenox. Ordering cbc in AM to monitor platelets Taye Sanford MD May 21, 2017 13:57
[2017-05-21] MEDS: SUCRALFATE 1 GM TAB PO SCH ×3 (14:31→20:41)
[2017-05-21] MEDS: LIDOCAINE HCL 5% PATCH T-DERMAL SCH (14:32)
[2017-05-21] MEDS: ASPIRIN 81 MG CHEW TAB CHEW SCH (14:32)
[2017-05-21] MEDS: GABAPENTIN 100 MG CAP PO SCH ×2 (14:32→18:28)
[2017-05-21] MEDS: ENOXAPARIN SODIUM 30 MG/0.3 ML SYRINGE SQ SCH (14:33)
[2017-05-21 16:00] VITALS: BP 122/79; PULSE 86; RESP 18; TEMP 97; O2SAT 99
[2017-05-21 20:00] VITALS: BP 135/85; PULSE 76; RESP 20; TEMP 97.3; O2SAT 98
[2017-05-21] MEDS ORDERED: REMOVE OLD LIDOCAINE PATCH T-DERMAL SCH (21:00)
[2017-05-21] MEDS: LORazepam 2 MG TAB PO PRN (22:30)
[2017-05-22] VITALS: BP 118/73; PULSE 75; RESP 20; TEMP 97.3; O2SAT 99
[2017-05-22 08:00] VITALS: BP 136/87; PULSE 61; RESP 18; TEMP 96.9; O2SAT 98
[2017-05-22 08:15] LABS: AUTOMATED NEUTROPHIL # 3.2 TH/MM3 (1.8-7.7); BASOPHIL # 0.1 TH/MM3 (0-0.2); EOSINOPHIL # 0.2 TH/MM3 (0-0.4); EOSINOPHIL % 3.8 % (0.0-4.0); HEMATOCRIT 41.2 % (39.0-51.0); HEMO FLAGS DIFF FINAL; LYMPH % 26.6 % (9.0-44.0); LYMPHOCYTE # 1.4 TH/MM3 (1.0-4.8); MEAN CELL VOLUME 86.5 FL (80.0-100.0); MEAN CORPUSCULAR HEMOGLOBIN 27.3 PG (27.0-34.0); MEAN CORPUSCULAR HGB CONC 31.5 % (32.0-36.0); MONO % 7.5 % (0.0-8.0); NEUT % 61.1 % (16.0-70.0); PLATELET COUNT 212 TH/MM3 (150-450); RED BLOOD COUNT 4.76 MIL/MM3 (4.50-5.90); RED CELL DISTRIBUTION WIDTH 21.1 % (11.6-17.2); WHITE BLOOD COUNT 5.3 TH/MM3 (4.0-11.0)
[2017-05-22 08:27] LABS: CHLORIDE 109 MEQ/L (98-107); POTASSIUM 3.8 MEQ/L (3.5-5.1); SODIUM (NA) 142 MEQ/L (136-145)
[2017-05-22 08:30] LABS: ANION GAP 9 MEQ/L (5-15); BICARBONATE 24.3 MEQ/L (21.0-32.0)
[2017-05-22 08:31] LABS: BLOOD UREA NITROGEN 9 MG/DL (7-18)
[2017-05-22] MEDS: THIAMINE HCL 100 MG TAB PO SCH (08:31)
[2017-05-22] MEDS: SUCRALFATE 1 GM TAB PO SCH ×2 (08:31→13:23)
[2017-05-22] MEDS: FOLIC ACID 1 MG TAB PO SCH (08:31)
[2017-05-22] MEDS: PANTOPRAZOLE SOD 40 MG DELAYED RELEASE TAB PO SCH (08:31)
[2017-05-22] MEDS: GABAPENTIN 100 MG CAP PO SCH ×2 (08:31→13:23)
[2017-05-22] MEDS: ASPIRIN 81 MG CHEW TAB CHEW SCH (08:32)
[2017-05-22] MEDS: LIDOCAINE HCL 5% PATCH T-DERMAL SCH (08:32)
[2017-05-22] MEDS: LORazepam 2 MG TAB PO PRN (08:32)
[2017-05-22] MEDS: MULTIVITAMINS/MINERALS THERAPEUTIC TAB PO SCH (08:33)
[2017-05-22 08:34] LABS: ALT (GPT) 196 U/L (12-78); AST (GOT) 349 U/L (15-37); GLOMERULAR FILTRATION RATE 145 ML/MIN (>89)
[2017-05-22 08:37] LABS: ALKALINE PHOSPHATASE 72 U/L (45-117)
[2017-05-22] MEDS: SODIUM CHLOR 0.9% 1000 ML INJ 1,000 ML IV SCH (09:00)
[2017-05-22] MEDS: DULoxetine HCl DR 20 MG CAP PO SCH (09:00)
[2017-05-22] MEDS: SODIUM CHLORIDE 0.9% FLUSH 10 ML FLUSH IV FLUSH SCH (09:00)
[2017-05-22] MEDS ORDERED: REGADENOSON INJ 0.4 MG/5 ML SYR IV ONE (11:26)
[2017-05-22 12:00] VITALS: BP 119/81; PULSE 78; RESP 18; TEMP 97; O2SAT 96
--- NOTE | 2017-05-22 12:37 | RADRPT ---
EXAM DATE/TIME: 05/22/2017 11:21 [facility] COMPARISON: MYOCARDIAL PERF PHARM SPECT, GATED W/EF, March 21, 2016, 11:05. INDICATIONS : Substernal chest pain and palpitations. Angina. DOSE: 25.9 mCi Tc99m Myoview at stress. 8.1 mCi Tc99m Myoview at rest. 0.4 mg Lexiscan STRESS SYMPTOMS: None. EJECTION FRACTION: 55% MEDICAL HISTORY : Chronic obstructive pulmonary disease. Hepatitis C. Hypertension. SURGICAL HISTORY : Right ankle surgery. ENCOUNTER: Initial ACUITY: 2 days PAIN SCALE: 3/10 LOCATION: Substernal chest TECHNIQUE: The patient underwent pharmacologic stress with infusion of prescribed dose. Continuous ECG tracing was monitored during stress. Gated SPECT imaging was performed after stress and conventional SPECT i maging was performed at rest. The examination was performed on a SPECT/CT scanner, both attenuation and non-corrected datasets were reviewed. FINDINGS: DISTRIBUTION: The maximum perfused segment at stress is in the lateral wall. PERFUSION STUDY: The pattern of perfusion at stress is within normal limits. GATED STUDY: There is intact wall motion and thickening without hypokinetic or dyskinetic segments. CONCLUSION: Normal examination. RISK CATEGORY: Low (<1% Annual Mortality Rate) Wesly Hines MD on May 22, 2017 at 12:30 Board Certified Radiologist. This report was verified electronically.
[2017-05-22] MEDS: ENOXAPARIN SODIUM 30 MG/0.3 ML SYRINGE SQ SCH (13:23)
[2017-05-22] MEDS ORDERED: FOLI1TAB6 PO (13:38)
[2017-05-22] MEDS ORDERED: GNP100TA3 PO (13:38)
--- NOTE | 2017-05-22 13:38 | HHI.DCPOC ---
Discharge Care Plan Diagnosis: (1) Chest pain (2) Alcohol withdrawal Goals to Promote Your Health * To prevent worsening of your condition and complications * To maintain your health at the optimal level Directions to Meet Your Goals Take your medications as prescribed Follow your dietary instruction Follow activity as directed Keep your appointments as scheduled Take your immunizations and boosters as scheduled If your symptoms worsen call your PCP, if no PCP go to Urgent Care Center or Emergency Room Smoking is Dangerous to Your Health. Avoid second hand smoke Call the 24-hour hour crisis hotline for domestic abuse at [facility] May 22, 2017 13:38
--- NOTE | 2017-05-22 13:45 | HHI.DS ---
Discharge Summary Admission Date May 19, 2017 at 10:27 Discharge Date: May 22, 2017 Admitting Diagnosis Alcohol Withdrawal/Chest pain (1) Nausea & vomiting ICD Code: R11.2 - Nausea with vomiting, unspecified Status: Acute (2) Alcohol withdrawal ICD Code: F10.239 - Alcohol dependence with withdrawal, unspecified Status: Acute (3) Hepatitis C virus ICD Code: B19.20 - Hepatitis C virus Status: Acute Procedures None. Brief History - From Admission 51-year-old male with history of alcoholism, liver cirrhosis, hepatitis c, b, who presents with intractable bilious, nonbloody vomiting, as well as constant sharp substernal chest pain radiating up and down his esophagus, beginning around midnight last night. Patient says he typically drinks a fifth of vodka daily, however his last drink was 2 days ago. He feels he is withdrawing from alcohol. Denies any hematemesis or coffee-ground emesis. Denies any melena. He reports chills, however no measured fevers. Denies any diarrhea or constipation. Denies any dysuria. Recent admission 05/08 reviewed. CBC/BMP: 05/22/17 0730 05/22/17 0730 Significant Findings Laboratory Tests Test 05/19/17 17:25 05/21/17 07:30 05/22/17 07:30 Urine Benzodiazepines Screen POS (NEG) Mean Corpuscular Hemoglobin Concent 31.9 % (32.0-36.0) 31.5 % (32.0-36.0) Red Cell Distribution Width 20.5 % (11.6-17.2) 21.1 % (11.6-17.2) Random Glucose 111 MG/DL (74-106) 127 MG/DL (74-106) Aspartate Amino Transf (AST/SGOT) 374 U/L (15-37) 349 U/L (15-37) Alanine Aminotransferase (ALT/SGPT) 185 U/L (12-78) 196 U/L (12-78) Total Bilirubin 2.0 MG/DL (0.2-1.0) Creatinine 0.59 MG/DL (0.60-1.30) Chloride Level 109 MEQ/L (98-107) Imaging Last Impressions Myocardial Perfusion Scan Nuc Med 05/22/17 0600 Signed Impressions: Service Date/Time: April 11:21 - CONCLUSION: Normal examination. RISK CATEGORY: Low (<1%% Annual Mortality Rate) Wesly Hines MD Chest X-Ray 05/19/17 0721 Signed Impressions: Service Date/Time: Friday, May 19, 2017 07:41 - CONCLUSION: Slight blunting of the right costophrenic angle Wesly Hines MD PE at Discharge GENERAL: AOX3, NAD. SKIN: Warm and dry. HEAD: Normocephalic. EYES: No scleral icterus. No injection or drainage. NECK: Supple, trachea midline. No JVD or lymphadenopathy. CARDIOVASCULAR: Regular rate and rhythm without murmurs, gallops, or rubs. RESPIRATORY: Breath sounds equal bilaterally. No accessory muscle use. GASTROINTESTINAL: Abdomen soft, non-tender, nondistended. MUSCULOSKELETAL: No cyanosis, or edema. Mild tremors on extension of upper ext. BACK: Nontender without obvious deformity. No CVA tenderness. Hospital Course 51-year-old male who is well-known to the hospital because of alcoholism, liver cirrhosis, hepatitis B, C who presented to hospital because of intractable nonbloody emesis, chest discomfort radiating down into the esophagus. It started the day before he presented to the hospital which was on 05/19/17. The patient does drink approximately a fifth of vodka daily however it was indicated that his last drink was 2 days prior to that. He felt that he was withdrawing from alcohol so he came to the hospital for evaluation. Patient did have workup performed which did not show any acute abnormality. Patient was offered admission for alcohol withdrawal. Patient did have some substernal chest pain in which cardiac enzymes were negative. Patient did undergo nuclear stress test which was negative for any ischemia. Patient was placed on [facility] protocol for a trial, multivitamin daily. No signs of actual withdrawal were seen during his stay in the hospital. There has been no labile blood pressure. Blood pressure appears to have remained stable. Patient clinically stable and he was notified of his findings and plans for stress test. His notified that if stress test is negative and that he was going to be discharged. However patient could not wait and left the hospital. Patient was clinically stable at the time that he left. Pt Condition on Discharge: Stable Discharge Disposition: Discharge Home Discharge Time: > 30 minutes Discharge Instructions DIET: Follow Instructions for: Heart Healthy Diet Activities you can perform: Regular-No Restrictions Activities to Avoid: Driving for 24 hrs Follow up Referrals: PCP Follow-up - 1 Week New Medications: Folic Acid (Folic Acid) 1 Mg Tablet 1 MG PO DAILY for ETOH for 10 Days, TAB Thiamine HCl (Gnp Vitamin B-1) 100 Mg Tab 100 MG PO DAILY for ETOH, #10 TAB Continued Medications: Hydrocodone-Acetaminophen (Hydrocodone-Acetaminophen) 5-300 Mg Tab Unknown Dose PO Q4H PRN for PAIN, TAB 0 Refills Morphine ER (Morphine ER) 15 Mg Tab Unknown Dose PO BID for Pain Management, TAB 0 Refills Pantoprazole (Protonix) 20 Mg Tab 20 MG PO BID for Reflux, #30 TAB 0 Refills Sucralfate (Carafate) 1 Gm Tab 1 GM PO QID for Ulcer Prevention, #120 TAB 0 Refills On empty stomach Frank Rey May 22, 2017 13:45
== END 2017-05-22 14:10 | disposition home or self-care (01) | DRG 896 ==
LOC: PHED 06:57 → PHEDA 10:27 → PH3A 11:10
PROVIDERS: ADMIT Hospitalist; ATTEND Hospitalist
DX: F10.230 Alcohol dependence with withdrawal, uncomplicated (principal); I21.4 Non-ST elevation (NSTEMI) myocardial infarction; K70.30 Alcoholic cirrhosis of liver without ascites; K86.1 Other chronic pancreatitis; B19.10 Unspecified viral hepatitis B without hepatic coma; B19.20 Unspecified viral hepatitis C without hepatic coma; I10 Essential (primary) hypertension; J44.9 Chronic obstructive pulmonary disease, unspecified; K21.9 Gastro-esophageal reflux disease without esophagitis; G47.00 Insomnia, unspecified; R07.2 Precordial pain; M06.9 Rheumatoid arthritis, unspecified; M54.5 Low back pain; G89.29 Other chronic pain; F17.210 Nicotine dependence, cigarettes, uncomplicated; F32.9 Major depressive disorder, single episode, unspecified; F41.9 Anxiety disorder, unspecified; Y90.2 Blood alcohol level of 40-59 mg/100 ml; Z86.14 Personal history of Methicillin resistant Staphylococcus aureus infection
CPT/HCPCS: 71010; 78452; 80053; 80307; 82550; 82552; 82948; 83690; 83735; 84484; 85025; 85610; 85730; 93005; 93017; 96365; 96375; A9502; J1650; J2060; J2405; J2550; J2785; J3411; J7030

== ENCOUNTER 2017-06-19 21:30 | Emergency (ER) | payer OTHER ==
[~2017-06-19] VITALS: Ht 188 cm; Wt 77.0 kg
[~2017-06-19 21:30] MED LIST changes: +CARA1TAB6 PO; +FOLI1TAB6 PO; +GNP100TA3 PO; +PANT20 PO
[2017-06-19 22:00] VITALS: BP 117/77; PULSE 96; RESP 16; TEMP 98.6; O2SAT 95
--- NOTE | 2017-06-19 23:25 | RADRPT ---
EXAM DATE/TIME: 06/19/2017 23:12 [facility] COMPARISON: CHEST SINGLE AP, May 19, 2017, 7:41. INDICATIONS : Chest pain. MEDICAL HISTORY : Hepatitis B. Hepatitis C. Hypertension. COPD, Pancreatitis, TB SURGICAL HISTORY : Lt lung chest tube, Rt ankle ENCOUNTER: Initial ACUITY: 1 day PAIN SCORE: 4/10 LOCATION: chest FINDINGS: A single view of the chest demonstrates calcified granulomata predominantly in the upper lungs. Basil ar scarring and blunting of the costophrenic angles. No pneumothorax. Heart size normal. CONCLUSION: No acute findings. Remote granulomatous disease. Scarring of costophrenic angles and both upper lobes . Du Nieves MD on June 19, 2017 at 23:22 Board Certified Radiologist. This report was verified electronically.
[2017-06-19 23:36] LABS: AUTOMATED NEUTROPHIL # 2.8 TH/MM3 (1.8-7.7); BASOPHIL # 0.1 TH/MM3 (0-0.2); EOSINOPHIL # 0.1 TH/MM3 (0-0.4); EOSINOPHIL % 0.9 % (0.0-4.0); LYMPH % 48.9 % (9.0-44.0); LYMPHOCYTE # 3.2 TH/MM3 (1.0-4.8); MEAN CELL VOLUME 88.8 FL (80.0-100.0); MEAN CORPUSCULAR HEMOGLOBIN 29.7 PG (27.0-34.0); MEAN CORPUSCULAR HGB CONC 33.5 % (32.0-36.0); MONO % 6.5 % (0.0-8.0); NEUT % 42.7 % (16.0-70.0); PLATELET COUNT 106 TH/MM3 (150-450); RED BLOOD COUNT 5.41 MIL/MM3 (4.50-5.90); RED CELL DISTRIBUTION WIDTH 20.4 % (11.6-17.2); WHITE BLOOD COUNT 6.4 TH/MM3 (4.0-11.0)
[2017-06-19 23:37] LABS: HEMO FLAGS AUTO DIFF
[2017-06-20 00:08] LABS: OVALOCYTES 1+ (NORMAL)
[2017-06-20 00:09] LABS: PLATELET ESTIMATE SMEAR LOW (NORMAL); PLATELET MORPHOLOGY NORMAL (NORMAL); SCAN/DIFF AUTO DIFF CONFIRMED; TOXIC GRANULATION 1+ (NORMAL); TOXIC VACUOLATION PRESENT (NONE SEEN)
[2017-06-20 00:11] LABS: ALT (GPT) 82 U/L (12-78); ANION GAP 11 MEQ/L (5-15); AST (GOT) 301 U/L (15-37); BICARBONATE 23.6 MEQ/L (21.0-32.0); BLOOD UREA NITROGEN 4 MG/DL (7-18); CHLORIDE 106 MEQ/L (98-107); GLOMERULAR FILTRATION RATE 117 ML/MIN (>89); POTASSIUM 3.1 MEQ/L (3.5-5.1); SODIUM (NA) 141 MEQ/L (136-145)
[2017-06-20 00:14] LABS: ALKALINE PHOSPHATASE 122 U/L (45-117); TOTAL BILIRUBIN ADULT 0.9 MG/DL (0.2-1.0)
[2017-06-20] MEDS ORDERED: LORazepam 1 MG TAB PO ONE (00:15)
--- NOTE | 2017-06-20 00:17 | PD ---
HPI Chief Complaint: Psychiatric Symptoms Time Seen by Provider: 23:54 Travel History International Travel<30 days: No Contact w/Intl Traveler<30days: No Traveled to known affect area: No History of Present Illness HPI 51-year-old male with history of alcohol abuse, here under [place] for suicidal ideation. According to the [place] police were responding to a disturbance at his home. The patient made numerous suicidal statements advising that "a bullet to the head would be better than this." He also stated he has been wanting to harm himself for a while but is unsure of how. When questioned about this the patient denies any suicidal ideation. He admits to drinking alcohol daily and would like help for this. He reports his last alcoholic beverage was yesterday. He is complaining of some epigastric abdominal pain and numbness and tingling in his hands and feet. He denies illicit drug use. No toxic ingestions. PFSH Past Medical History Hx Anticoagulant Therapy: No Arthritis: Yes (RA) Asthma: No Blood Disorders: Yes (HEPATITIS B AND C NO TREATMENT) Anxiety: Yes Depression: Yes Heart Rhythm Problems: No Cancer: No Cardiovascular Problems: Yes (HTN) High Cholesterol: No Chemotherapy: No Chest Pain: Yes (PALPITATIONS) Congestive Heart Failure: No Cirrhosis: Yes COPD: Yes Cerebrovascular Accident: No Diabetes: No Diminished Hearing: No Endocrine: No Gastrointestinal Disorders: Yes (PANCREATITIS) GERD: Yes Genitourinary: No Headaches: Yes Hepatitis: Yes (B & C) Hiatal Hernia: No Heparin Induced Thrombocytopen: No Herniated Disk: Yes Hypertension: Yes Immune Disorder: No Implanted Vascular Access Dvce: Yes Insomnia: Yes Kidney Stones: No Musculoskeletal: Yes (CHRONIC BACK PAIN) Neurologic: Yes Psychiatric: Yes Reproductive: Yes Respiratory: Yes (COPD / TB) Integumentary: Yes (HX IV DRUG USE) Immunizations Current: Yes Migraines: Yes Pancreatitis: Yes Pneumonia: Yes Radiation Therapy: No Renal Failure: No Seizures: No Sickle Cell Disease: No Sleep Apnea: No Thyroid Disease: No Ulcer: Yes PNEUMOCCOCAL Vaccine (Year): 2 Past Surgical History Abdominal Surgery: Yes (LIVER BIOPSY) AICD: No Arteriovenous Shunt: No Body Medical Devices: STEEL PLATE IN RIGHT ANKLE Cardiac Surgery: No Ear Surgery: No Endocrine Surgery: Yes (LIVER BIOPSY) Eye Surgery: No Genitourinary Surgery: No Gynecologic Surgery: No Hysterectomy: No Insulin Pump: No Joint Replacement: No Neurologic Surgery: No Oral Surgery: No Pacemaker: No Thoracic Surgery: Yes (CHEST TUBE- R/O TB 2009) Tonsillectomy: Yes Other Surgery: Yes (RIGHT ANKLE PLATE/SCREWS) Social History Alcohol Use: Yes (1/5 VODKA DAILY) Tobacco Use: Yes (1/2 PPD) Substance Use: Yes (COCAINE 15 YEARS AGO) Allergies-Medications (Allergen,Severity, Reaction): Coded Allergies: prednisone (Unverified Allergy, Severe, Rash, 06/19/17) *MDRO Multi-Drug Resistant Organism (Verified Adverse Reaction, Unknown, Cleared, 06/19/17) MRSA arm wound 2008 MRSA PCR Screen negative 01/06/15 and 05/30/15. Cleared by Infection Control. Reported Meds & Prescriptions Reported Meds & Active Scripts Active Gnp Vitamin B-1 (Thiamine HCl) 100 Mg Tab 100 Mg PO DAILY Folic Acid 1 Mg Tablet 1 Mg PO DAILY 10 Days Reported Protonix (Pantoprazole Sodium) 20 Mg Tab 20 Mg PO BID Carafate (Sucralfate) 1 Gm Tab 1 Gm PO QID On empty stomach Morphine ER (Morphine Sulfate) 15 Mg Tab Unknown Dose PO BID Hydrocodone-Acetaminophen 5-300 Mg Tab Unknown Dose PO Q4H PRN Review of Systems Except as stated in HPI: all other systems reviewed are Neg Physical Exam Narrative GENERAL: Well-developed, well-nourished, comfortable, no apparent distress. SKIN: Focused skin assessment warm/dry. HEAD: Atraumatic. Normocephalic. EYES: Pupils equal and round. No scleral icterus. No injection or drainage. ENT: Mucous membranes pink and moist. NECK: Trachea midline. No JVD. CARDIOVASCULAR: Regular rate and rhythm. No murmur appreciated. RESPIRATORY: No accessory muscle use. Clear to auscultation. Breath sounds equal bilaterally. GASTROINTESTINAL: Abdomen soft, non-tender, nondistended. MUSCULOSKELETAL: No obvious deformities. No clubbing. No cyanosis. No edema. NEUROLOGICAL: Awake and alert. No obvious cranial nerve deficits. Motor grossly within normal limits. Normal speech. No focal deficits. PSYCHIATRIC: Appropriate mood and affect; insight and judgment normal. Data Data Last Documented VS Vital Signs Date Time Temp Pulse Resp B/P (MAP) Pulse Ox O2 Delivery O2 Flow Rate FiO2 06/19/17 22:00 98.6 96 16 117/77 (90) 95 Orders Orders Complete Blood Count With Diff (06/19/17 23:00) Comprehensive Metabolic Panel (06/19/17 23:00) Urinalysis - C+S If Indicated (06/19/17 23:00) Drug Screen, Random Urine (06/19/17 23:00) Chest, Single Ap (06/19/17 ) Psych Screen (06/19/17 23:00) Alcohol (Ethanol) (06/19/17 23:55) Tylenol (Acetaminophen) (06/20/17 00:03) Salicylates (Aspirin) (06/20/17 00:03) Lorazepam (Ativan) (06/20/17 00:15) Lipase (06/19/17 23:10) Potassium Chloride (Kcl) (06/20/17 00:30) Labs Laboratory Tests Test 06/19/17 23:10 White Blood Count 6.4 TH/MM3 Red Blood Count 5.41 MIL/MM3 Hemoglobin 16.1 GM/DL Hematocrit 48.0 % Mean Corpuscular Volume 88.8 FL Mean Corpuscular Hemoglobin 29.7 PG Mean Corpuscular Hemoglobin Concent 33.5 % Red Cell Distribution Width 20.4 % Platelet Count 106 TH/MM3 Mean Platelet Volume 7.9 FL Neutrophils (%) (Auto) 42.7 % Lymphocytes (%) (Auto) 48.9 % Monocytes (%) (Auto) 6.5 % Eosinophils (%) (Auto) 0.9 % Basophils (%) (Auto) 1.0 % Neutrophils # (Auto) 2.8 TH/MM3 Lymphocytes # (Auto) 3.2 TH/MM3 Monocytes # (Auto) 0.4 TH/MM3 Eosinophils # (Auto) 0.1 TH/MM3 Basophils # (Auto) 0.1 TH/MM3 CBC Comment AUTO DIFF Differential Comment AUTO DIFF CONFIRMED Toxic Granulation 1+ Toxic Vacuolation PRESENT Platelet Estimate LOW Platelet Morphology Comment NORMAL Ovalocytes 1+ Blood Urea Nitrogen 4 MG/DL Creatinine 0.71 MG/DL Random Glucose 117 MG/DL Total Protein 7.9 GM/DL Albumin 4.2 GM/DL Calcium Level 8.3 MG/DL Alkaline Phosphatase 122 U/L Aspartate Amino Transf (AST/SGOT) 301 U/L Alanine Aminotransferase (ALT/SGPT) 82 U/L Total Bilirubin 0.9 MG/DL Sodium Level 141 MEQ/L Potassium Level 3.1 MEQ/L Chloride Level 106 MEQ/L Carbon Dioxide Level 23.6 MEQ/L Anion Gap 11 MEQ/L Estimat Glomerular Filtration Rate 117 ML/MIN Lipase 204 U/L Salicylates Level LESS THAN 1.7 MG/DL Acetaminophen Level LESS THAN 2.0 MCG/ML Ethyl Alcohol Level 413 MG/DL MDM Medical Decision Making Medical Screen Exam Complete: Yes Emergency Medical Condition: Yes Medical Record Reviewed: Yes Interpretation(s) EKG: Sinus, rate 85, normal axis, normal intervals, no acute ischemic abnormality. Differential Diagnosis Alcohol intoxication, suicidal ideation, pancreatitis, alcohol withdrawal, metabolic abnormality Narrative Course Initial vital signs show heart rate 96, blood pressure 117/77, pulse ox 95% on room air, oral temp of 98.6F. CT shows WBC 6.4, hemoglobin 16.1, hematocrit 48, platelets 106. CMP is remarkable for potassium 3.1 which was replaced orally, AST 301, ALT 82. The patient is a chronic alcoholic and has had slight LFT elevations in the past. Lipase is 204 Alcohol level is 413 Salicylates are negative. Tylenol level is negative. Patient is medically cleared for psychiatric evaluation and disposition by them. Diagnosis Primary Impression: Alcohol intoxication Qualified Codes: F10.920 - Alcohol use, unspecified with intoxication, uncomplicated Additional Impression: Suicidal ideation Gonzalez Chi MD Jun 20, 2017 00:17
[2017-06-20] MEDS ORDERED: POTASSIUM CHLORIDE 20 MEQ CONTROLLED RELEASE TAB PO ONE (00:30)
[2017-06-20 00:50] LABS: ACETAMINOPHEN LESS THAN 2.0 MCG/ML (10.0-30.0)
[2017-06-20] MEDS ORDERED: LORazepam 1 MG TAB PO PRN (01:15)
[2017-06-20] MEDS ORDERED: LORazepam 2 MG/ML VIAL IV PUSH PRN ×4 (01:15)
[2017-06-20] MEDS ORDERED: LORazepam 2 MG TAB PO PRN (01:15)
[2017-06-20] MEDS ORDERED: FLUMAZENIL 0.5 MG/5 ML VIAL IV PUSH PRN (01:15)
[2017-06-20 01:57] VITALS: BP 140/85; PULSE 98; RESP 18; O2SAT 95
[2017-06-20 06:34] LABS: BLOOD, URINE NEG (NEG); GLUCOSE,URINE 300 mg/dL (NEG); HYALINE CAST, URINE 1 /lpf (RARE); KETONE, URINE NEG (NEG); MUCUS URINE FEW /lpf (OCC); NITRITE,URINE NEG (NEG); RENAL EPITHELIAL CELLS <1 /hpf; SQUAMOUS EPITHELIAL CELL URINE <1 /hpf (0-5); URINE COLOR YELLOW (YELLW/STRAW)
[2017-06-20 06:35] VITALS: BP 128/75; PULSE 111; RESP 18; O2SAT 97
[2017-06-20 06:35] LABS: CALCIUM OXALATE CRYSTALS,URINE RARE /hpf; COMMENT (UR) CULT NOT INDICATED; CULTURE IF INDICATED CULT NOT INDICATED
[2017-06-20] MEDS ORDERED: ONDANSETRON HCL 4 MG/2 ML VIAL IM ONE (07:45)
--- NOTE | 2017-06-20 10:09 | EKG ---
Date Performed: 06/19/2017 Time Performed: 22:01:20 PTAGE: 51 years EKG: Sinus rhythm NORMAL ECG INTERPRETATION BASED ON A DEFAULT AGE OF 40 YEARS PREVIOUS TRACING : 05/19/2017 07.02 Compared to prior tracing no significant change DOCTOR: Gerson Hernández Interpretating Date/Time 06/20/2017 10:08:37
== END 2017-06-20 10:58 ==
LOC: NEDAMB 21:30 → NEPJ 06-20 10:58
DX: F10.920 Alcohol use, unspecified with intoxication, uncomplicated (principal); R45.851 Suicidal ideations; R10.13 Epigastric pain; R20.0 Anesthesia of skin; R20.2 Paresthesia of skin; I10 Essential (primary) hypertension; F17.200 Nicotine dependence, unspecified, uncomplicated; Z87.39 Personal history of other diseases of the musculoskeletal system and connective tissue; Z86.59 Personal history of other mental and behavioral disorders; Z86.79 Personal history of other diseases of the circulatory system; Z87.19 Personal history of other diseases of the digestive system; Z87.09 Personal history of other diseases of the respiratory system; Z86.19 Personal history of other infectious and parasitic diseases; Z86.69 Personal history of other diseases of the nervous system and sense organs
CPT/HCPCS: 71010; 80053; 80307; 81001; 83690; 85025; 93005; 96372; 96374; 99284; J2060; J2405

== ENCOUNTER 2017-07-16 20:13 | Inpatient (IN) | payer OTHER ==
[~2017-07-16] VITALS: Ht 198.1 cm; Wt 85.3 kg
[2017-07-16 20:17] VITALS: BP 143/100; PULSE 93; RESP 18; TEMP 98; O2SAT 97
[2017-07-16] MEDS ORDERED: AMBI10TA PO (20:25)
[2017-07-16] MEDS ORDERED: SODIUM CHLOR 0.9% 1000 ML INJ 1,000 ML IV ONE ×2 (20:27→23:00)
[2017-07-16] MEDS ORDERED: LORazepam 2 MG/ML VIAL IV PUSH PRN ×8 (20:30→23:30)
[2017-07-16] MEDS ORDERED: ONDANSETRON HCL 4 MG/2 ML VIAL IVP ONE (20:30)
[2017-07-16] MEDS ORDERED: LORazepam 1 MG TAB PO PRN (20:30)
[2017-07-16] MEDS ORDERED: FLUMAZENIL 0.5 MG/5 ML VIAL IV PUSH PRN ×2 (20:30→23:30)
[2017-07-16] MEDS ORDERED: SODIUM CHLORIDE 0.9% FLUSH 10 ML FLUSH IVF PRN (20:30)
[2017-07-16] MEDS ORDERED: LORazepam 2 MG TAB PO PRN ×2 (20:30→23:30)
--- NOTE | 2017-07-16 20:40 | PD ---
HPI Chief Complaint: Psychiatric Symptoms Time Seen by Provider: 20:25 Travel History International Travel<30 days: No Contact w/Intl Traveler<30days: No Traveled to known affect area: No History of Present Illness HPI Patient comes under Rose act by police for reported suicidal ideations. Patient states he is trying to quit drinking last drank yesterday. Patient reports he drinks anywhere from a fifth to a half-gallon of vodka a day. Patient denies any homicidal or suicidal ideations. Patient was going to be brought in by police however had questionable syncopal episode while sitting in back of the police car and was brought in by EMS. Patient states that he was claustrophobic and asked the mounted police officer to roll the window down. Patient states that after having the window rolled down he felt better but EMS was called. Patient denies any actual loss of consciousness. Patient's only complaint is bilateral hand pain describes as achy like in nature from where he punched a brick wall couple days ago. Patient has not been evaluated for this. Patient denies anything making it better. Pain is worse to palpation and certain movement. Patient denies any nausea, vomiting, chest pain, shortness breath out of the ordinary, headaches, numbness or tingling anywhere, or loss or change in bowel or bladder. Reports his tetanus shot is up-to-date. PFSH Past Medical History Hx Anticoagulant Therapy: No Arthritis: Yes (RA) Asthma: No Blood Disorders: Yes (HEPATITIS B AND C NO TREATMENT) Anxiety: Yes Depression: Yes Heart Rhythm Problems: No Cancer: No Cardiovascular Problems: Yes (HTN) High Cholesterol: No Chemotherapy: No Chest Pain: Yes (PALPITATIONS) Congestive Heart Failure: No Cirrhosis: Yes COPD: Yes Cerebrovascular Accident: No Diabetes: No Diminished Hearing: No Endocrine: No Gastrointestinal Disorders: Yes (PANCREATITIS) GERD: Yes Genitourinary: No Headaches: Yes Hepatitis: Yes (B & C) Hiatal Hernia: No Heparin Induced Thrombocytopen: No Herniated Disk: Yes Hypertension: Yes Immune Disorder: No Implanted Vascular Access Dvce: Yes Insomnia: Yes Kidney Stones: No Musculoskeletal: Yes (CHRONIC BACK PAIN) Neurologic: Yes Psychiatric: Yes Reproductive: Yes Respiratory: Yes (COPD / TB) Integumentary: Yes (HX IV DRUG USE) Immunizations Current: Yes Migraines: Yes Pancreatitis: Yes Pneumonia: Yes Radiation Therapy: No Renal Failure: No Seizures: No Sickle Cell Disease: No Sleep Apnea: No Thyroid Disease: No Ulcer: Yes PNEUMOCCOCAL Vaccine (Year): 2 ?: Not Past Surgical History Abdominal Surgery: Yes (LIVER BIOPSY) AICD: No Arteriovenous Shunt: No Body Medical Devices: STEEL PLATE IN RIGHT ANKLE Cardiac Surgery: No Ear Surgery: No Endocrine Surgery: Yes (LIVER BIOPSY) Eye Surgery: No Genitourinary Surgery: No Gynecologic Surgery: No Hysterectomy: No Insulin Pump: No Joint Replacement: No Neurologic Surgery: No Oral Surgery: No Pacemaker: No Thoracic Surgery: Yes (CHEST TUBE- R/O TB 2009) Tonsillectomy: Yes Other Surgery: Yes (RIGHT ANKLE PLATE/SCREWS) Social History Alcohol Use: Yes (1/5 VODKA DAILY) Tobacco Use: Yes (1/2 PPD) Substance Use: Yes (1/5 vodka, 1/2 gal vodka daily) Allergies-Medications (Allergen,Severity, Reaction): Coded Allergies: prednisone (Unverified Allergy, Severe, Rash, 07/16/17) Reported Meds & Prescriptions Reported Meds & Active Scripts Active Reported Ambien (Zolpidem Tartrate) 10 Mg Tab 10 Mg PO HS PRN Protonix (Pantoprazole Sodium) 20 Mg Tab 20 Mg PO BID Carafate (Sucralfate) 1 Gm Tab 1 Gm PO QID On empty stomach Review of Systems Except as stated in HPI: all other systems reviewed are Neg Physical Exam Narrative GENERAL: Well-developed, well nourished, in no acute distress, and non-ill appearing. SKIN: Superficial abrasion noted over the third knuckle right hand with soft tissue swelling noted and contusion noted on the palmar surface. It is tender to palpation. There is no crepitus. Patient has full range of motion distally. Neurovascularly intact. HEAD: Atraumatic. Normocephalic. EYES: Pupils equal and round. EOMI. No scleral icterus. No injection or drainage. ENT: No nasal bleeding or discharge. Mucous membranes pink and moist. NECK: Trachea midline. Supple. No nuclear rigidity. CARDIOVASCULAR: Regular rate and rhythm. No murmur appreciated. Radial pulses 2+, intact, and equal bilaterally. Capillary refill less than 2 seconds. RESPIRATORY: No accessory muscle use. No respiratory distress. Clear to auscultation. Breath sounds equal bilaterally. MUSCULOSKELETAL: No obvious deformities. No clubbing. No cyanosis. No edema. Full range of motion. Wrist: FROM and equal BL with passive flexion, extension, and pronation/supination. Capillary refill less than 2 seconds distal to injury and equal BL. FROM distal to injury and equal BL. Strength distal to injury equal BL. NV intact distal to injury. Flexion and extension of thumb equal BL. Equal strength and movement with abduction/adductions of BL fingers. 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 No tenderness to the anatomical snuffbox. Patient hurt her chest pain to palpation over the third metacarpophalangeal joint bilateral hands. There is no crepitus. NEUROLOGICAL: Awake and alert. No obvious cranial nerve deficits. Motor grossly within normal limits. Normal speech. PSYCHIATRIC: Appropriate mood and affect. Data Data Last Documented VS Vital Signs Date Time Temp Pulse Resp B/P (MAP) Pulse Ox O2 Delivery O2 Flow Rate FiO2 07/16/17 21:48 91 20 140/90 (107) 98 20 148/100 (116) 104 143/100 (114) 07/16/17 20:17 98.0 97 Orders Orders Electrocardiogram (07/16/17 20:27) Complete Blood Count With Diff (07/16/17 20:27) Comprehensive Metabolic Panel (07/16/17 20:27) Magnesium (Mg) (07/16/17 20:27) Ckmb (Isoenzyme) Profile (07/16/17 20:27) Troponin I (07/16/17 20:27) Act Partial Throm Time (Ptt) (07/16/17 20:27) Prothrombin Time / Inr (Pt) (07/16/17 20:27) Chest, Single Ap (07/16/17 20:27) Ct Brain W/O Iv Contrast(Rout) (07/16/17 20:27) Ecg Monitoring (07/16/17 20:27) Iv Access Insert/Monitor (07/16/17 20:27) Oximetry (07/16/17 20:27) Ondansetron Inj (Zofran Inj) (07/16/17 20:30) Sodium Chloride 0.9% Flush (Ns Flush) (07/16/17 20:30) Sodium Chlor 0.9% 1000 Ml Inj (Ns 1000 M (07/16/17 20:27) Orthostatic Vital Signs (07/16/17 20:27) Psych Screen (07/16/17 20:27) Drug Screen, Random Urine (07/16/17 20:27) Alcohol (Ethanol) (07/16/17 20:27) Salicylates (Aspirin) (07/16/17 20:27) Tylenol (Acetaminophen) (07/16/17 20:27) Alcohol Withdrawal Asmt-Ciwa ONCE (07/16/17 20:27) Flumazenil Inj (Romazicon Inj) (07/16/17 20:30) Lorazepam (Ativan) (07/16/17 20:30) Lorazepam Inj (Ativan Inj) (07/16/17 20:30) Lorazepam (Ativan) (07/16/17 20:30) Lorazepam Inj (Ativan Inj) (07/16/17 20:30) Lorazepam Inj (Ativan Inj) (07/16/17 20:30) Lorazepam Inj (Ativan Inj) (07/16/17 20:30) Hand, Complete ([id number]) (07/16/17 ) Hand, Complete ([id number]) (07/16/17 ) Splint Or Brace Apply/Monitor (07/16/17 22:17) Potassium Chloride (Kcl) (07/16/17 22:30) CKMB (07/16/17 21:35) CKMB% (07/16/17 21:35) Sodium Chlor 0.9% 1000 Ml Inj (Ns 1000 M (07/16/17 23:00) Admit Order (Ed Use Only) (07/16/17 23:00) Labs Laboratory Tests Test 07/16/17 21:35 07/16/17 21:43 White Blood Count 4.5 TH/MM3 Red Blood Count 5.06 MIL/MM3 Hemoglobin 15.5 GM/DL Hematocrit 46.5 % Mean Corpuscular Volume 91.9 FL Mean Corpuscular Hemoglobin 30.7 PG Mean Corpuscular Hemoglobin Concent 33.4 % Red Cell Distribution Width 18.8 % Platelet Count 111 TH/MM3 Mean Platelet Volume 7.5 FL Neutrophils (%) (Auto) 50.5 % Lymphocytes (%) (Auto) 41.1 % Monocytes (%) (Auto) 5.7 % Eosinophils (%) (Auto) 1.5 % Basophils (%) (Auto) 1.2 % Neutrophils # (Auto) 2.3 TH/MM3 Lymphocytes # (Auto) 1.9 TH/MM3 Monocytes # (Auto) 0.3 TH/MM3 Eosinophils # (Auto) 0.1 TH/MM3 Basophils # (Auto) 0.1 TH/MM3 CBC Comment DIFF FINAL Differential Comment Prothrombin Time 11.4 SEC Prothromb Time International Ratio 1.0 RATIO Activated Partial Thromboplast Time 26.6 SEC Blood Urea Nitrogen 8 MG/DL Creatinine 0.58 MG/DL Random Glucose 98 MG/DL Total Protein 7.4 GM/DL Albumin 3.8 GM/DL Calcium Level 8.7 MG/DL Magnesium Level 1.6 MG/DL Alkaline Phosphatase 100 U/L Aspartate Amino Transf (AST/SGOT) 247 U/L Alanine Aminotransferase (ALT/SGPT) 51 U/L Total Bilirubin 0.8 MG/DL Sodium Level 143 MEQ/L Potassium Level 3.2 MEQ/L Chloride Level 106 MEQ/L Carbon Dioxide Level 26.8 MEQ/L Anion Gap 10 MEQ/L Estimat Glomerular Filtration Rate 148 ML/MIN Total Creatine Kinase 2381 U/L Creatine Kinase MB 5.1 NG/ML Creatine Kinase MB % 0.2 % Troponin I LESS THAN 0.02 NG/ML Salicylates Level LESS THAN 1.7 MG/DL Acetaminophen Level LESS THAN 2.0 MCG/ML Ethyl Alcohol Level 268 MG/DL Urine Opiates Screen NEG Urine Barbiturates Screen NEG Urine Amphetamines Screen NEG Urine Benzodiazepines Screen POS Urine Cocaine Screen NEG Urine Cannabinoids Screen NEG MDM Medical Decision Making Medical Screen Exam Complete: Yes Emergency Medical Condition: Yes Interpretation(s) EKG reviewed by Dr. Rodriguez shows sinus rhythm ventricular rate of 87. No STEMI. Differential Diagnosis Fracture, strain, contusion, syncope, near syncope, alcohol intoxication, alcohol withdrawal, dehydration, electrolyte abnormality, homicidal, suicidal, alcohol-induced mood disorder, other Narrative Course Patient seen and examined. Initially for radiological studies were ordered. Patient is given IV fluid. Upon reviewing the labs. Patient was ordered additional laboratory fluid centimeters elevated CPK. She does report some tenderness over the third distal phalanx left hand was a fracture noted on x- ray. Splint was ordered. Discussed all findings and plan care of patient is agreeable for admission. All questions were answered. Discussed patient with Dr. Michael, 0 point care and disposition. Discussed patient with hospitalist who is agreeable to admit the patient. Physician Communication Physician Communication [phone] Farooq, who is agreeable to admit the patient. Diagnosis Primary Impression: Elevated CK Additional Impressions: Closed fracture of tuft of distal phalanx of finger Hypokalemia Alcohol intoxication Qualified Codes: F10.920 - Alcohol use, unspecified with intoxication, uncomplicated Near syncope Condition: Stable Bernard Castaneda Jul 16, 2017 20:40
[2017-07-16 21:48] VITALS: BP_SYST 140; BP_SYST 143; BP_SYST 148; BP_DIAS 100; BP_DIAS 90; RESP 20
[2017-07-16 21:53] LABS: AUTOMATED NEUTROPHIL # 2.3 TH/MM3 (1.8-7.7); BASOPHIL # 0.1 TH/MM3 (0-0.2); BASOPHIL % 1.2 % (0.0-2.0); EOSINOPHIL # 0.1 TH/MM3 (0-0.4); EOSINOPHIL % 1.5 % (0.0-4.0); HEMATOCRIT 46.5 % (39.0-51.0); HEMO FLAGS DIFF FINAL; LYMPH % 41.1 % (9.0-44.0); LYMPHOCYTE # 1.9 TH/MM3 (1.0-4.8); MEAN CELL VOLUME 91.9 FL (80.0-100.0); MEAN CORPUSCULAR HEMOGLOBIN 30.7 PG (27.0-34.0); MEAN CORPUSCULAR HGB CONC 33.4 % (32.0-36.0); MONO % 5.7 % (0.0-8.0); NEUT % 50.5 % (16.0-70.0); PLATELET COUNT 111 TH/MM3 (150-450); RED BLOOD COUNT 5.06 MIL/MM3 (4.50-5.90); RED CELL DISTRIBUTION WIDTH 18.8 % (11.6-17.2); WHITE BLOOD COUNT 4.5 TH/MM3 (4.0-11.0)
--- NOTE | 2017-07-16 21:56 | RADRPT ---
EXAM DATE/TIME: 07/16/2017 21:00 [facility] COMPARISON: CHEST SINGLE AP, June 19, 2017, 23:12. INDICATIONS : Short of breath. MEDICAL HISTORY : Hepatitis B. Hepatitis C. Hypertension. COPD, Pancreatitis. SURGICAL HISTORY : None. ENCOUNTER: Initial ACUITY: 1 day PAIN SCORE: 0/10 LOCATION: Bilateral chest FINDINGS: Chronic granulomatous calcifications and pleuroparenchymal scarring present in the lung apices and fall prahilar regions bilaterally. Stable slight blunting of the gastric angles. Cardiac contours are fabien sly unchanged. CONCLUSION: Basically stable abnormal chest appearance. Wesly Hines MD on July 16, 2017 at 21:53 Board Certified Radiologist. This report was verified electronically.
[2017-07-16 22:00] LABS: APTT (PATIENT) 26.6 SEC (24.3-30.1); PROTHROMBIN TIME - PATIENT 11.4 SEC (9.8-11.6)
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
[2017-07-16 22:13] LABS: ANION GAP 10 MEQ/L (5-15); AST (GOT) 247 U/L (15-37); BICARBONATE 26.8 MEQ/L (21.0-32.0); BLOOD UREA NITROGEN 8 MG/DL (7-18); CHLORIDE 106 MEQ/L (98-107); GLOMERULAR FILTRATION RATE 148 ML/MIN (>89); MAGNESIUM 1.6 MG/DL (1.5-2.5); POTASSIUM 3.2 MEQ/L (3.5-5.1); SODIUM (NA) 143 MEQ/L (136-145)
--- NOTE | 2017-07-16 22:16 | RADRPT ---
EXAM DATE/TIME: 07/16/2017 22:01 [facility] COMPARISON: No previous studies available for comparison. INDICATIONS : Syncope. RADIATION DOSE: 33.40 CTDIvol (mGy) MEDICAL HISTORY : Hypertension. ETOH abuse. SURGICAL HISTORY : None. ENCOUNTER: Initial ACUITY: 1 day PAIN SCALE: 0/10 LOCATION: cranial TECHNIQUE: Multiple contiguous axial images were obtained of the head. Using automated exposure control and adj ustment of the mA and/or kV according to patient size, radiation dose was kept as low as reasonably a chievable to obtain optimal diagnostic quality images. DICOM format image data is available electro nically for review and comparison. FINDINGS: CEREBRUM: The ventricles are normal for age. No evidence of midline shift, mass lesion, hemorrhage or acute in farction. No extra-axial fluid collections are seen. POSTERIOR FOSSA: The cerebellum and brainstem are intact. The 4th ventricle is midline. The cerebellopontine angle i s unremarkable. EXTRACRANIAL: The visualized portion of the orbits is intact. SKULL: The calvaria is intact. No evidence of skull fracture. CONCLUSION: Normal examination. Wesly Hines MD on July 16, 2017 at 22:14 Board Certified Radiologist. This report was verified electronically.
[2017-07-16 22:17] LABS: ACETAMINOPHEN LESS THAN 2.0 MCG/ML (10.0-30.0); ALKALINE PHOSPHATASE 100 U/L (45-117); ALT (GPT) 51 U/L (12-78); TOTAL BILIRUBIN ADULT 0.8 MG/DL (0.2-1.0)
[2017-07-16 22:21] LABS: ALCOHOL 268 MG/DL (0-5)
[2017-07-16] MEDS ORDERED: POTASSIUM CHLORIDE 20 MEQ CONTROLLED RELEASE TAB PO ONE (22:30)
[2017-07-16 22:45] LABS: CREATINE KINASE 2381 U/L (39-308)
[2017-07-16 23:06] LABS: CKMB 5.1 NG/ML (0.5-3.6)
[2017-07-16] MEDS ORDERED: SODIUM CHLOR 0.9% 1000 ML INJ 1,000 ML IV SCH (23:16)
--- NOTE | 2017-07-16 23:19 | HHI.HP ---
[facility] Service [facility] Primary Care Physician Maribell Chang MD Admission Diagnosis elevated CPK, early rhabdo, alcohol intoxication, near syncope Diagnoses: (1) Syncope Diagnosis: Principal (2) Alcohol abuse Diagnosis: Principal (3) Suicidal ideation Diagnosis: Principal (4) Rhabdomyolysis Diagnosis: Principal (5) Hypokalemia Diagnosis: Principal (6) Finger fracture Diagnosis: Principal Travel History International Travel<30 Days: No Contact w/Intl Traveler <30 Da: No Traveled to Known Affected Are: No History of Present Illness This is a 51-year-old male with a PMH of Anxiety, Depression, HTN, Hepatitis B and C, COPD, Alcohol Abuse, Tobacco Abuse and h/o Drug Abuse who was brought to the ER under Rose Act for suicidal ideation. Pt was placed under [place] Act by Police after stating he was trying to drink himself to . Reports drinking 1/2 gallon of Vodka per day. While in the back of the Police vehicle, pt noted to have questionable syncopal event and EMS called. Pt does not recall syncope. Denies h/o syncope. No reported seizure activity. On arrival, BP 143 /100, HR 93, O2 sat 97% on RA, Afebrile. CBC unremarkable except for platelets 111, previously 106 on 06/19/17. Chemistry unremarkable except for K+ 3.2. CPK 2381. Trop negative. INR 1.0. Urine Drug Screen positive for Benzo. Alcohol 268. CXR with no acute findings. CT Head normal. Review of Systems Except as stated in HPI: all other systems reviewed are Neg ROS: 14 point review of systems otherwise negative. Past Family Social History Past Medical History PMH: Anxiety, Depression, HTN, Hepatitis B and C, COPD, Alcohol Abuse, Tobacco Abuse and h/o Drug Abuse Past Surgical History PAST SURGICAL HISTORY: Liver Biopsy, Chest Tube, Right Ankle surgery, Tonsillectomy Allergies: Coded Allergies: prednisone (Unverified Allergy, Severe, Rash, 07/16/17) *MDRO Multi-Drug Resistant Organism (Verified Adverse Reaction, Unknown, Cleared, 07/16/17) MRSA arm wound 2009 MRSA PCR Screen negative 01/06/15 and 05/30/15. Cleared by Infection Control. Family History PAST FAMILY HISTORY: Reviewed. No h/o DM or CAD Social History PAST SOCIAL HISTORY: Drinks 1/2 gallon Vodka daily. Smokes 1/2ppd. +Drug Abuse Physical Exam Vital Signs Vital Signs Date Time Temp Pulse Resp B/P (MAP) Pulse Ox O2 Delivery O2 Flow Rate FiO2 07/16/17 21:48 91 20 140/90 (107) 98 20 148/100 (116) 104 143/100 (114) 07/16/17 20:17 98.0 93 18 143/100 (114) 97 Physical Exam PE: GENERAL: Middle-aged white male in no acute distress. HEENT: PERRLA, EOMI. No scleral icterus or conjunctival pallor. No lid lag or facial droop. CARDIOVASCULAR: Regular rate and rhythm. No obvious murmurs to auscultation. No chest tenderness to palpation. RESPIRATORY: No obvious rhonchi or wheezing. Clear to auscultation. Breath sounds equal bilaterally. GASTROINTESTINAL: Abdomen soft, non-tender, nondistended. BS normal. MUSCULOSKELETAL: Extremities without clubbing, cyanosis, or edema. No obvious deformities. NEUROLOGICAL: Awake, alert. No focal neurologic deficits. Moving both upper and lower extremities spontaneously. Laboratory Laboratory Tests Test 07/16/17 21:35 07/16/17 21:43 White Blood Count 4.5 Red Blood Count 5.06 Hemoglobin 15.5 Hematocrit 46.5 Mean Corpuscular Volume 91.9 Mean Corpuscular Hemoglobin 30.7 Mean Corpuscular Hemoglobin Concent 33.4 Red Cell Distribution Width 18.8 Platelet Count 111 Mean Platelet Volume 7.5 Neutrophils (%) (Auto) 50.5 Lymphocytes (%) (Auto) 41.1 Monocytes (%) (Auto) 5.7 Eosinophils (%) (Auto) 1.5 Basophils (%) (Auto) 1.2 Neutrophils # (Auto) 2.3 Lymphocytes # (Auto) 1.9 Monocytes # (Auto) 0.3 Eosinophils # (Auto) 0.1 Basophils # (Auto) 0.1 CBC Comment DIFF FINAL Differential Comment Prothrombin Time 11.4 Prothromb Time International Ratio 1.0 Activated Partial Thromboplast Time 26.6 Blood Urea Nitrogen 8 Creatinine 0.58 Random Glucose 98 Total Protein 7.4 Albumin 3.8 Calcium Level 8.7 Magnesium Level 1.6 Alkaline Phosphatase 100 Aspartate Amino Transf (AST/SGOT) 247 Alanine Aminotransferase (ALT/SGPT) 51 Total Bilirubin 0.8 Sodium Level 143 Potassium Level 3.2 Chloride Level 106 Carbon Dioxide Level 26.8 Anion Gap 10 Estimat Glomerular Filtration Rate 148 Total Creatine Kinase 2381 Creatine Kinase MB 5.1 Creatine Kinase MB % 0.2 Troponin I LESS THAN 0.02 Salicylates Level LESS THAN 1.7 Acetaminophen Level LESS THAN 2.0 Ethyl Alcohol Level 268 Urine Opiates Screen NEG Urine Barbiturates Screen NEG Urine Amphetamines Screen NEG Urine Benzodiazepines Screen POS Urine Cocaine Screen NEG Urine Cannabinoids Screen NEG Result Diagram: 07/16/17213407/16/172134 Caprinalena VTE Risk Assessment Caprini VTE Risk Assessment: No/Low Risk (score <= 1) Caprini Risk Assessment Model Point Value = 1 Point Value = 2 Point Value = 3 Point Value = 5 Age 41-60 Minor surgery BMI > 25 kg/m2 Swollen legs Varicose veins or History of unexplained or recurrent spontaneous Oral contraceptives or hormone replacement Sepsis (< 1 month) Serious lung disease, including pneumonia (< 1 month) Abnormal pulmonary function Acute myocardial infarction Congestive heart failure (< 1 month) History of inflammatory bowel disease Medical patient at bed rest Age 61-74 Arthroscopic surgery Major open surgery (> 45 min) Laparoscopic surgery (> 45 min) Malignancy Confined to bed (> 72 hours) Immobilizing plaster cast Central venous access Age >= 75 History of VTE Family history of VTE Factor V Leiden Prothrombin [id number] Lupus anticoagulant Anticardiolipin antibodies Elevated serum homocysteine Heparin-induced thrombocytopenia Other congenital or acquired thrombophilia Stroke (< 1 month) Elective arthroplasty Hip, pelvis, or leg fracture Acute spinal cord injury (< 1 month) Prophylaxis Regimen Total Risk Factor Score Risk Level Prophylaxis Regimen 0-1 Low Early ambulation 2 Moderate Order ONE of the following: *Sequential Compression Device (SCD) *Heparin 5000 units SQ BID 3-4 Higher Order ONE of the following medications: *Heparin 5000 units SQ TID *Enoxaparin/Lovenox 40 mg SQ daily (WT < 150 kg, CrCl > 30 mL/min) *Enoxaparin/Lovenox 30 mg SQ daily (WT < 150 kg, CrCl > 10-29 mL/min) *Enoxaparin/Lovenox 30 mg SQ BID (WT < 150 kg, CrCl > 30 mL/min) AND/OR *Sequential Compression Device (SCD) 5 or more Highest Order ONE of the following medications: *Heparin 5000 units SQ TID (Preferred with Epidurals) *Enoxaparin/Lovenox 40 mg SQ daily (WT < 150 kg, CrCl > 30 mL/min) *Enoxaparin/Lovenox 30 mg SQ daily (WT < 150 kg, CrCl > 10-29 mL/min) *Enoxaparin/Lovenox 30 mg SQ BID (WT < 150 kg, CrCl > 30 mL/min) AND *Sequential Compression Device (SCD) Assessment and Plan Problem List: (1) Syncope ICD Code: R55 - Syncope and collapse (2) Alcohol abuse ICD Code: F10.10 - Alcohol abuse, uncomplicated (3) Suicidal ideation ICD Code: R45.851 - Suicidal ideations (4) Rhabdomyolysis ICD Code: M62.82 - Rhabdomyolysis (5) Finger fracture ICD Code: S62.609A - Fracture of unspecified phalanx of unspecified finger, initial encounter for closed fracture (6) Hypokalemia ICD Code: E87.6 - Hypokalemia Assessment and Plan A/P: 1. Syncope: questionable syncopal event while sitting in back of Police vehicle, no seizure activity noted. Pt does not recall event. Trop negative, EKG w/ no acute ischemia. CT Head w/ no acute findings, images reviewed by me. Telemetry, check Echo, IVF for hydration. 2. Suicidal Ideation: currently under Rose Act, sitter, Consult Psych 3. Alcohol Abuse: Drinks daily, high risk for withdrawal, Seizure Precautions , MVT/Thiamine/Folate replacement, CIWA 4. Rhabdomyolysis: CPK 2381. IVF for hydration, check repeat CPK for trend. 5. Hypokalemia: K+ 3.2, will replace and recheck in am. 6. Finger Fx: X-ray w/ 3rd finger tuft fracture, images reviewed by me, non-op , analgesics as needed. 7. DVT Prophylaxis: SCD/Teds. 8. Social work for d/c planning as needed. 9. Case discussed w/ ER physician at length. Physician Certification 2 Midnight Certification Type: Admission for Inpatient Services Order for Inpatient Services The services are ordered in accordance with Medicare regulations or non- Medicare payer requirements, as applicable. In the case of services not specified as inpatient-only, they are appropriately provided as inpatient services in accordance with the 2-midnight benchmark. Estimated LOS (days): 2 days is the estimated time the patient will need to remain in the hospital, assuming treatment plan goals are met and no additional complications. Post-Hospital Plan: Not yet determined Charla Farooq MD Jul 16, 2017 23:19
[2017-07-16 23:21] VITALS: BP 152/90; PULSE 92; RESP 18; O2SAT 97
[2017-07-16] MEDS ORDERED: MAGNESIUM HYDROXIDE SUSP 30 ML CUP PO PRN (23:30)
[2017-07-16] MEDS ORDERED: HALOPERIDOL LACTATE 5 MG/ML AMP IM PRN (23:30)
[2017-07-16] MEDS ORDERED: ACETAMINOPHEN 325 MG TAB PO PRN (23:30)
[2017-07-16] MEDS ORDERED: SODIUM CHLORIDE 0.9% FLUSH 10 ML FLUSH IV FLUSH PRN (23:30)
[2017-07-16] MEDS ORDERED: ONDANSETRON HCL 4 MG/2 ML VIAL IVP PRN (23:30)
[2017-07-16] MEDS ORDERED: BISACODYL 10 MG SUPP RECTAL PRN (23:30)
[2017-07-16] MEDS ORDERED: LACTULOSE SYRUP 20 GM/30 ML CUP PO PRN (23:30)
[2017-07-16] MEDS ORDERED: SENNOSIDES 8.6 MG TAB PO PRN (23:30)
[2017-07-17 02:00] VITALS: PULSE 93
[2017-07-17] MEDS ORDERED: THIAMINE INJ 100 MG in SODIUM CHLORIDE 0.9% INJ 100 ML IV SCH (02:00)
[2017-07-17 02:02] VITALS: BP_SYST 155; BP_SYST 159; BP_DIAS 103; BP_DIAS 98; PULSE 92; RESP 20; TEMP 98.9; O2SAT 96
[2017-07-17] MEDS: MORPHINE SULFATE 2 MG/ML INJ IM PRN ×5 (02:59→17:25)
[2017-07-17] MEDS: LORazepam 1 MG TAB PO PRN ×4 (03:28→17:23)
[2017-07-17 04:00] VITALS: BP_SYST 160; BP_SYST 168; BP_DIAS 102; BP_DIAS 90; PULSE 96; RESP 20; TEMP 98.7; O2SAT 99
[2017-07-17 05:35] LABS: AUTOMATED NEUTROPHIL # 1.7 TH/MM3 (1.8-7.7); BASOPHIL % 0.6 % (0.0-2.0); EOSINOPHIL # 0.1 TH/MM3 (0-0.4); HEMATOCRIT 42.6 % (39.0-51.0); LYMPH % 48.7 % (9.0-44.0); LYMPHOCYTE # 2.1 TH/MM3 (1.0-4.8); MEAN CELL VOLUME 91.9 FL (80.0-100.0); MEAN CORPUSCULAR HEMOGLOBIN 30.8 PG (27.0-34.0); MEAN CORPUSCULAR HGB CONC 33.6 % (32.0-36.0); NEUT % 39.7 % (16.0-70.0); PLATELET COUNT 93 TH/MM3 (150-450); RED BLOOD COUNT 4.64 MIL/MM3 (4.50-5.90); WHITE BLOOD COUNT 4.4 TH/MM3 (4.0-11.0)
[2017-07-17 05:41] LABS: HEMO FLAGS AUTO DIFF
[2017-07-17 05:56] LABS: ALT (GPT) 45 U/L (12-78); ANION GAP 9 MEQ/L (5-15); AST (GOT) 205 U/L (15-37); BICARBONATE 28.9 MEQ/L (21.0-32.0); BLOOD UREA NITROGEN 4 MG/DL (7-18); CHLORIDE 102 MEQ/L (98-107); GLOMERULAR FILTRATION RATE 164 ML/MIN (>89); POTASSIUM 3.1 MEQ/L (3.5-5.1); SODIUM (NA) 140 MEQ/L (136-145)
[2017-07-17 06:09] LABS: ALKALINE PHOSPHATASE 96 U/L (45-117); CREATINE KINASE 1772 U/L (39-308); TOTAL BILIRUBIN ADULT 0.9 MG/DL (0.2-1.0)
[2017-07-17 06:28] LABS: CKMB 3.4 NG/ML (0.5-3.6)
[2017-07-17 06:55] LABS: PLATELET ESTIMATE SMEAR LOW (NORMAL); PLATELET MORPHOLOGY NORMAL (NORMAL); SCAN/DIFF AUTO DIFF CONFIRMED
[2017-07-17 08:00] VITALS: BP 156/96; PULSE 101; PULSE 94; RESP 20; TEMP 97.8; O2SAT 96
[2017-07-17] MEDS ORDERED: SODIUM CHLORIDE 0.9% FLUSH 10 ML FLUSH IV FLUSH SCH (09:00)
[2017-07-17] MEDS ORDERED: INFLUENZA VIRUS VACCINE (QUADRIVALENT) 0.5 ML SYR IM ONE (09:00)
[2017-07-17] MEDS ORDERED: FOLIC ACID 1 MG TAB PO SCH (09:00)
[2017-07-17] MEDS ORDERED: DOCUSATE SODIUM 50 MG/SENNA 8.6 MG TAB PO SCH (09:00)
[2017-07-17] MEDS ORDERED: MULTIVITAMINS/MINERALS THERAPEUTIC TAB PO SCH (09:00)
[2017-07-17] MEDS ORDERED: PANTOPRAZOLE SOD 20 MG DELAYED RELEASE TAB PO SCH (10:00)
[2017-07-17] MEDS ORDERED: POTASSIUM CHLORIDE 10 MEQ CONTROLLED RELEASE TAB PO ONE (10:00)
[2017-07-17] MEDS ORDERED: cloNIDine HCL 0.1 MG TAB PO PRN (10:00)
[2017-07-17] MEDS ORDERED: hydrALAZINE HCL 20 MG/ML VIAL IV PUSH PRN (10:00)
[2017-07-17] MEDS: SUCRALFATE 1 GM TAB PO SCH ×3 (10:14→18:00)
[2017-07-17] MEDS ORDERED: ENALAPRILAT 1.25 MG/ML VIAL IV PUSH PRN (11:00)
[2017-07-17] MEDS ORDERED: POTASSIUM CHLORIDE 20 MEQ CONTROLLED RELEASE TAB PO ONE (11:00)
[2017-07-17] MEDS ORDERED: NS + KCL 20 MEQ INJ 1,000 ML IV SCH (11:00)
--- NOTE | 2017-07-17 11:24 | ECHRPT ---
Indication: Cardiomyopathy, unspecified CONCLUSIONS The left ventricular systolic function is low normal with an estimated ejection fraction of 60%. Wall thickness is measured at the upper limits of normal. Normal left ventricular size. No definite wall motion abnormalities. Poorly visualized. No aortic valve stenosis or regurgitation. BP: 159 / 103 HR: 92 Rhythm: Sinus MEASUREMENTS (Male / Female) Normal Values Technical Quality:Technically difficult study 2D ECHO LV Diastolic Diameter PLAX 4.6 cm 4.2 - 5.9 / 3.9 - 5.3 cm LV Systolic Diameter PLAX 3.6 cm IVS Diastolic Thickness 1.0 cm 0.6 - 1.0 / 0.6 - 0.9 cm LVPW Diastolic Thickness 1.0 cm 0.6 - 1.0 / 0.6 - 0.9 cm LV Relative Wall Thickness 0.4 LVOT Diameter 2.4 cm DOPPLER AV Peak Velocity 111.0 cm/s AV Peak Gradient 4.9 mmHg LVOT Peak Velocity 117.0 cm/s LVOT Peak Gradient 5.5 mmHg AV Area Cont Eq pk 4.8 cm Mitral E Point Velocity 58.7 cm/s Mitral A Point Velocity 80.5 cm/s Mitral E to A Ratio 0.7 LV E' Lateral Velocity 10.3 cm/s Mitral E to LV E' Lateral Ratio 5.7 LV E' Septal Velocity 8.2 cm/s Mitral E to LV E' Septal Ratio 7.2 FINDINGS LEFT VENTRICLE The left ventricular systolic function is low normal with an estimated ejection fraction of 60%. Wall thickness is measured at the upper limits of normal. Normal left ventricular size. No definite wall motion abnormalities. RIGHT VENTRICLE Normal right ventricular size and systolic function. LEFT ATRIUM The left atrial size is normal. RIGHT ATRIUM The right atrial size is normal. ATRIAL SEPTUM Normal atrial septal thickness without atrial level shunting by limited color doppler interrogation. AORTA The aortic root and proximal ascending aorta are normal in size on limited imaging. MITRAL VALVE Structurally normal mitral valve. No mitral valve stenosis or regurgitation. AORTIC VALVE Poorly visualized. No aortic valve stenosis or regurgitation. TRICUSPID VALVE Structurally normal tricuspid valve. No tricuspid valve stenosis or regurgitation. PULMONARY VALVE The pulmonary valve is not well visualized. VESSELS The inferior vena cava is normal in size. PERICARDIUM No pericardial effusion. Carter Laboy MD (Electronically Signed) Final Date:17 July 2017 11:22
--- NOTE | 2017-07-17 11:31 | PD.PSY.CON ---
Provisional Diagnosis Admission Date Jul 16, 2017 at 23:01 [place] I. Alcohol induced mood disorder, alcohol use disorder, cannabis use disorder [place] II. Deferred [place] III. Chronic pancreatitis, hypertension, hepatitis B, hepatitis C, asthma [place] IV. Poor social and family support [place] V. 55 History of Present Illness Service Psychiatry Consult Requested By Medical team Reason for Consult Suicidal attempt Primary Care Physician Maribell Chang MD HPI The patient is a 51-year-old man, homicidal his mother in [place] , single, unemployed, he is in SSI process, with a self-reported psychiatric history of Anxiety, Depression, alcohol use disorder, withdrawal symptoms in the past, no previous psychiatric hospitalizations, no previous suicidal attempts, history of overdosing accidentally, medical history of HTN, Hepatitis B and C, COPD, who was brought to the ER under Rose Act for suicidal ideation. Pt was placed under [place] Act by Police after stating he was trying to drink himself to . Reports drinking 1/2 gallon of Vodka per day. While in the back of the Police vehicle, pt noted to have questionable syncopal event and EMS called. Pt does not recall syncope. Denies h/o syncope. No reported seizure activity. On arrival, BP 143/100, HR 93, O2 sat 97% on RA, Afebrile. CBC unremarkable except for platelets 111, previously 106 on 06/19/17. Chemistry unremarkable except for K+ 3.2. CPK 2381. Trop negative. INR 1.0. Urine Drug Screen positive for Benzo. Alcohol 268. CXR with no acute findings. CT Head normal. On psychiatric evaluation today patient is calm, cooperative and pleasant. Patient remains with a one-to-one sitter. Patient is logical, coherent and relevant. Clinically sober. Some shaking and sweating visible, but patient denies anxiety. She reports that yesterday he was drinking alcohol, as usual, he blackout and he doesn't really remember the reason of his hospitalization. He stated that he did have an argument with mother and after this argument he decided to overdose with the intention to . Patient is now requesting to be discharged back home. He seems to be very superficial in the way he described his recent suicidal attempt and emotions. He does report depression, guiltiness, continue sensations of being a failure for the society and for his family, frequent suicidal thoughts, increased use of alcohol in the last month to the point that he doesn't care anymore. He is unable to provide information about where is getting benzodiazepines from. Collateral information form Diann Floreskristin, ; Who states that the patient, after argument with her, tried to commit suicide by overdosing with pills. She says that he has tried to do this before, but this time she was really scared because he took a bunch of pills he was really drunk "I thought that he was , it was really scary". Review of Systems Constitutional: COMPLAINS OF: Night Sweats Endocrine: DENIES: Heat/cold intolerance, Polydipsia, Polyuria, Polyphagia Eyes: DENIES: Blurred vision, Diplopia, Eye inflammation, Eye pain, Vision loss , Photosensitivity, Double Vision Ears, nose, mouth, throat: DENIES: Tinnitus, Hearing loss, Vertigo, Nasal discharge, Oral lesions, Throat pain, Hoarseness, Ear Pain, Running Nose, Epistaxis, Sinus Pain, Toothache, Odynophagia Respiratory: DENIES: Apneas, Cough, Snoring, Wheezing, Hemoptysis, Sputum production, Shortness of breath Cardiovascular: DENIES: Chest pain, Palpitations, Syncope, Dyspnea on Exertion , PND, Lower Extremity Edema, Orthopnea, Claudication Genitourinary: DENIES: Sexual dysfunction, Urinary frequency, Urinary incontinence, Urgency, Hematuria, Dysuria, Nocturia, Penile Discharge, Testicular Pain, Testicular Swelling Musculoskeletal: DENIES: Joint pain, Muscle aches, Stiffness, Joint Swelling, Back pain, Neck pain Hematologic/lymphatic: DENIES: Bruising, Lymphadenopathy Neurologic: COMPLAINS OF: Tremor Psychiatric: COMPLAINS OF: Anxiety, Depression, Suicidal Ideation Past Family Social History Coded Allergies: prednisone (Unverified Allergy, Severe, Rash, 07/16/17) Reported Medications Zolpidem (Ambien) 10 Mg Tab, 10 MG PO HS Y for INSOMNIA, TAB 0 Refills 07/16/17 Pantoprazole (Protonix) 20 Mg Tab, 20 MG PO BID for Reflux, #30 TAB 0 Refills 05/19/17 Sucralfate (Carafate) 1 Gm Tab, 1 GM PO QID for Ulcer Prevention, #120 TAB 0 Refills On empty stomach 05/19/17 Discontinued Reported Medications Morphine ER (Morphine ER) 15 Mg Tab, PO BID for Pain Management, TAB 0 Refills 05/08/17 Hydrocodone-Acetaminophen (Hydrocodone-Acetaminophen) 5-300 Mg Tab, PO Q4H Y for PAIN, TAB 0 Refills 05/08/17 Discontinued Scripts Thiamine HCl (Gnp Vitamin B-1) 100 Mg Tab, 100 MG PO DAILY for ETOH, #10 TAB Prov:Frank Rey 05/22/17 Folic Acid (Folic Acid) 1 Mg Tablet, 1 MG PO DAILY for ETOH for 10 Days, TAB Prov:Frank Rey 05/22/17 Current Medications Medications (Trade) Dose Ordered Sig/Karlos Route Start Time Stop Time Status Last Admin (Folate) 1 mg DAILY PO 07/17/17 09:00 07/22/17 08:59 07/17/17 08:22 (Theragran M Tab) 1 tab DAILY PO 07/17/17 09:00 07/22/17 08:59 07/17/17 08:22 Thiamine HCl 100 mg/Sodium Chloride 101 ml @ 100 mls/hr Q24H IV 07/17/17 02:00 07/19/17 01:59 07/17/17 02:36 (Romazicon Inj) 0.2 mg Q1M PRN IV PUSH 07/16/17 23:30 (Ativan) 1 mg Q4H PRN PO 07/16/17 23:30 07/17/17 08:22 (Ativan Inj) 1 mg Q4H PRN IV PUSH 07/16/17 23:30 (Ativan) 2 mg Q2H PRN PO 07/16/17 23:30 (Ativan Inj) 2 mg Q2H PRN IV PUSH 07/16/17 23:30 (Ativan Inj) 2 mg Q1H PRN IV PUSH 07/16/17 23:30 (Ativan Inj) 2 mg Q15M PRN IV PUSH 07/16/17 23:30 (Haldol Inj) 2 mg Q15M PRN IM 07/16/17 23:30 (NS Flush) 2 ml UNSCH PRN IV FLUSH 07/16/17 23:30 (NS Flush) 2 ml BID IV FLUSH 07/17/17 09:00 (Zofran Inj) 4 mg Q6H PRN IVP 07/16/17 23:30 07/17/17 08:22 (Tylenol) 650 mg Q6H PRN PO 07/16/17 23:30 07/17/17 03:06 (Blank-Colace) 1 tab BID PO 07/17/17 09:00 07/17/17 08:22 (Milk Of Magnesia Liq) 30 ml Q12H PRN PO 07/16/17 23:30 (Senokot) 17.2 mg Q12H PRN PO 07/16/17 23:30 (Dulcolax Supp) 10 mg DAILY PRN RECTAL 07/16/17 23:30 (Lactulose Liq) 30 ml DAILY PRN PO 07/16/17 23:30 (Morphine Inj) 2 mg Q3H PRN IM 07/17/17 03:00 07/17/17 10:22 Potassium Chloride/Sodium Chloride 1,000 ml @ 100 mls/hr Q10H IV 07/17/17 11:00 07/17/17 10:16 (Vasotec Inj) 1.25 mg Q6H PRN IV PUSH 07/17/17 11:00 (Apresoline Inj) 10 mg Q6H PRN IV PUSH 07/17/17 10:00 (Catapres) 0.1 mg Q6H PRN PO 07/17/17 10:00 (Protonix) 20 mg BID PO 07/17/17 10:00 07/17/17 10:20 (Carafate) 1 gm QID PO 07/17/17 11:00 07/17/17 10:14 Family Psych History Patient denies family psychiatric history Social History Patient was born and raised in [place], he lives with his mother in [place], his single, unemployed, he is on SSI process, his highest level of education is high school Patient's Strengths (min. 2) Verbal communication Physical Exam Patient has bilateral tremors, mild sweating is visible, his is to be hypervigilant, but no agitation, no restlessness, no psychomotor retardation visible at this moment. Vital Signs Vital Signs Date Time Temp Pulse Resp B/P (MAP) Pulse Ox O2 Delivery O2 Flow Rate FiO2 07/17/17 08:00 97.8 94 20 156/96 (116) 96 07/16/17 23:21 Room Air I/O 07/17/17 07/17/17 07/18/17 08:00 16:00 00:00 Intake Total 1101 ml Output Total 1625 ml Balance -524 ml Lab Results Test 07/16/17 21:35 07/16/17 21:43 07/17/17 05:14 White Blood Count 4.5 TH/MM3 4.4 TH/MM3 Red Blood Count 5.06 MIL/MM3 4.64 MIL/MM3 Hemoglobin 15.5 GM/DL 14.3 GM/DL Hematocrit 46.5 % 42.6 % Mean Corpuscular Volume 91.9 FL 91.9 FL Mean Corpuscular Hemoglobin 30.7 PG 30.8 PG Mean Corpuscular Hemoglobin Concent 33.4 % 33.6 % Red Cell Distribution Width 18.8 % 19.0 % Platelet Count 111 TH/MM3 93 TH/MM3 Mean Platelet Volume 7.5 FL 7.8 FL Neutrophils (%) (Auto) 50.5 % 39.7 % Lymphocytes (%) (Auto) 41.1 % 48.7 % Monocytes (%) (Auto) 5.7 % 9.0 % Eosinophils (%) (Auto) 1.5 % 2.0 % Basophils (%) (Auto) 1.2 % 0.6 % Neutrophils # (Auto) 2.3 TH/MM3 1.7 TH/MM3 Lymphocytes # (Auto) 1.9 TH/MM3 2.1 TH/MM3 Monocytes # (Auto) 0.3 TH/MM3 0.4 TH/MM3 Eosinophils # (Auto) 0.1 TH/MM3 0.1 TH/MM3 Basophils # (Auto) 0.1 TH/MM3 0.0 TH/MM3 CBC Comment DIFF FINAL AUTO DIFF Differential Comment AUTO DIFF CONFIRMED Prothrombin Time 11.4 SEC Prothromb Time International Ratio 1.0 RATIO Activated Partial Thromboplast Time 26.6 SEC Blood Urea Nitrogen 8 MG/DL 4 MG/DL Creatinine 0.58 MG/DL 0.53 MG/DL Random Glucose 98 MG/DL 97 MG/DL Total Protein 7.4 GM/DL 7.0 GM/DL Albumin 3.8 GM/DL 3.4 GM/DL Calcium Level 8.7 MG/DL 8.0 MG/DL Magnesium Level 1.6 MG/DL 1.3 MG/DL Alkaline Phosphatase 100 U/L 96 U/L Aspartate Amino Transf (AST/SGOT) 247 U/L 205 U/L Alanine Aminotransferase (ALT/SGPT) 51 U/L 45 U/L Total Bilirubin 0.8 MG/DL 0.9 MG/DL Sodium Level 143 MEQ/L 140 MEQ/L Potassium Level 3.2 MEQ/L 3.1 MEQ/L Chloride Level 106 MEQ/L 102 MEQ/L Carbon Dioxide Level 26.8 MEQ/L 28.9 MEQ/L Anion Gap 10 MEQ/L 9 MEQ/L Estimat Glomerular Filtration Rate 148 ML/MIN 164 ML/MIN Total Creatine Kinase 2381 U/L 1772 U/L Creatine Kinase MB 5.1 NG/ML 3.4 NG/ML Creatine Kinase MB % 0.2 % 0.2 % Troponin I LESS THAN 0.02 NG/ML Salicylates Level LESS THAN 1.7 MG/DL Acetaminophen Level LESS THAN 2.0 MCG/ML Ethyl Alcohol Level 268 MG/DL Urine Opiates Screen NEG Urine Barbiturates Screen NEG Urine Amphetamines Screen NEG Urine Benzodiazepines Screen POS Urine Cocaine Screen NEG Urine Cannabinoids Screen NEG Platelet Estimate LOW Platelet Morphology Comment NORMAL Mental Status Examination Appearance: Appropriate Consciousness: Alert Orientation: x4 Motor Activity: Normal gait Speech: Unremarkable Language: Adequate Fund of Knowledge: Adequate Attention and Concentration: Adequate Memory: Unremarkable Mood: Sad Affect: Irritable, Sad Thought Process & Associations: Intact Thought Content: Appropriate Hallucination Type: None Delusion Type: None Suicidal Ideation: Yes Suicidal Plan: No Suicidal Intention: Yes Homicidal Ideation: No Homicidal Plan: No Homicidal Intention: No Insight: Poor Judgment: Poor Assessment & Plan Problem List: (1) Major depressive disorder, recurrent ICD Codes: F33.9 - Major depressive disorder, recurrent, unspecified Assessment & Plan: On psychiatric evaluation today patient presents with reported symptomatology of depression basically consisting on guiltiness, decreased functionality, continue sensation of being a failure to the community and family, lack of motivation, poor energy, increased alcohol intake in the last months, frequent mood swings, decreased sensitivity to rejection and frustration, frequent suicidal thoughts that have finally led to suicidal attempt by overdose with pills and alcohol last night after argument with his mother. Patient seems to be minimizing symptoms of depression and recent suicidal attempt, he is also very superficial expressing his emotions behind symptoms of depression and suicide attempt. His mother contacted by phone confirmed that the patient overdosed "with a bunch of pills"with the intention to . She fears for his safety. Given patient's history of overdosing, continues use of alcohol, his multiple risk for suicidality and poor impulse control, he meets criteria for involuntary admission for stabilization and safety. Patient drinks about half to 1 gallon of Vodka per day and he has history of alcohol withdrawal, so alcohol withdrawal in this case is expected. Patient must be in CIWA protocol. [place]ashaun is/MTV/b12. Might consider a scale of GABAergic drugs Ativan 2 mg q/4 or Librium 50 mg Q/4 for detoxification of alcohol. No additional psychotropics recommended at this moment. Transfer patient to psychiatry once medically stable, or if the patient need for their medical workup he can be transferred to med psych. Continue sitter in the medical floor for safety. Assessment & Plan Estimated LOS: Lucius Cifuentes MD Jul 17, 2017 11:31
[2017-07-17 12:00] VITALS: BP 144/90; PULSE 94; RESP 20; TEMP 98.4; O2SAT 94
[2017-07-17] MEDS ORDERED: MAGNESIUM OXIDE 400 MG TAB PO SCH (12:45)
[2017-07-17] MEDS ORDERED: MAGNESIUM SULFATE 1 GM PREMIX 100 ML IV ONE (13:00)
--- NOTE | 2017-07-17 13:51 | HHI.DS ---
Discharge Summary Admission Date Jul 16, 2017 at 23:01 Discharge Date: Jul 17, 2017 Admitting Diagnosis elevated CPK, early rhabdo, alcohol intoxication, near syncope (1) Syncope ICD Code: R55 - Syncope and collapse Diagnosis: [place] (2) Alcohol abuse ICD Code: F10.10 - Alcohol abuse, uncomplicated Diagnosis: [place] (3) Suicidal ideation ICD Code: R45.851 - Suicidal ideations Diagnosis: [place] (4) Rhabdomyolysis ICD Code: M62.82 - Rhabdomyolysis Diagnosis: Principal (5) Finger fracture ICD Code: S62.609A - Fracture of unspecified phalanx of unspecified finger, initial encounter for closed fracture Diagnosis: Principal (6) Hypokalemia ICD Code: E87.6 - Hypokalemia Diagnosis: Principal Procedures none Brief History - From Admission This is a 51-year-old male with a PMH of Anxiety, Depression, HTN, Hepatitis B and C, COPD, Alcohol Abuse, Tobacco Abuse and h/o Drug Abuse who was brought to the ER under Rose Act for suicidal ideation. Pt was placed under [place] Act by Police after stating he was trying to drink himself to . Reports drinking 1/2 gallon of Vodka per day. While in the back of the Police vehicle, pt noted to have questionable syncopal event and EMS called. Pt does not recall syncope. Denies h/o syncope. No reported seizure activity. On arrival, BP 143 /100, HR 93, O2 sat 97% on RA, Afebrile. CBC unremarkable except for platelets 111, previously 106 on 06/19/17. Chemistry unremarkable except for K+ 3.2. CPK 2381. Trop negative. INR 1.0. Urine Drug Screen positive for Benzo. Alcohol 268. CXR with no acute findings. CT Head normal. CBC/BMP: 07/17/17 0514 07/17/17 0514 Significant Findings Laboratory Tests Test 07/16/17 21:35 07/16/17 21:43 07/17/17 05:14 Red Cell Distribution Width 18.8 % (11.6-17.2) 19.0 % (11.6-17.2) Platelet Count 111 TH/MM3 (150-450) 93 TH/MM3 (150-450) Creatinine 0.58 MG/DL (0.60-1.30) 0.53 MG/DL (0.60-1.30) Aspartate Amino Transf (AST/SGOT) 247 U/L (15-37) 205 U/L (15-37) Potassium Level 3.2 MEQ/L (3.5-5.1) 3.1 MEQ/L (3.5-5.1) Total Creatine Kinase 2381 U/L (39-308) 1772 U/L (39-308) Creatine Kinase MB 5.1 NG/ML (0.5-3.6) Troponin I LESS THAN 0.02 NG/ML Salicylates Level LESS THAN 1.7 MG/DL Acetaminophen Level LESS THAN 2.0 MCG/ML Ethyl Alcohol Level 268 MG/DL (0-5) Urine Benzodiazepines Screen POS (NEG) Lymphocytes (%) (Auto) 48.7 % (9.0-44.0) Monocytes (%) (Auto) 9.0 % (0.0-8.0) Neutrophils # (Auto) 1.7 TH/MM3 (1.8-7.7) Platelet Estimate LOW (NORMAL) Blood Urea Nitrogen 4 MG/DL (7-18) Calcium Level 8.0 MG/DL (8.5-10.1) Magnesium Level 1.3 MG/DL (1.5-2.5) Imaging Last Impressions Head CT 07/16/172026 Signed Impressions: Service Date/Time: Sunday, July 16, 2017 22:01 - CONCLUSION: Normal examination. Wesly Hines MD Chest X-Ray 07/16/172026 Signed Impressions: Service Date/Time: Sunday, July 16, 2017 21:00 - CONCLUSION: Basically stable abnormal chest appearance. Wesly Hines MD Hand X-Ray 07/16/17 0000 Signed Impressions: Service Date/Time: Sunday, July 16, 2017 21:01 - CONCLUSION: Third finger tuft fracture of indeterminate age. Wesly Hines MD PE at Discharge GENERAL: Middle-aged white male in no acute distress. HEENT: PERRLA, EOMI. No scleral icterus or conjunctival pallor. No lid lag or facial droop. CARDIOVASCULAR: Regular rate and rhythm. No obvious murmurs to auscultation. No chest tenderness to palpation. RESPIRATORY: No obvious rhonchi or wheezing. Clear to auscultation. Breath sounds equal bilaterally. GASTROINTESTINAL: Abdomen soft, non-tender, nondistended. BS normal. MUSCULOSKELETAL: Extremities without clubbing, cyanosis, or edema. No obvious deformities. NEUROLOGICAL: Awake, alert. No focal neurologic deficits. Moving both upper and lower extremities spontaneously. Hospital Course 1. Syncope: questionable syncopal event while sitting in back of Police vehicle, no seizure activity noted. Workup negative. He is hemodynamically and neurologically stable. If he did, likely related to alcohol intoxication 2. Suicidal Ideation: currently under Rose Act, sitter, psychiatry has recommended transfer to psychiatric floor when medically stable 3. Alcohol Abuse: Drinks daily, high risk for withdrawal, Seizure Precautions , MVT/Thiamine/Folate replacement, CIWA. Counseled 4. Rhabdomyolysis: CPK 2381. IVF for hydration, check repeat CPK for trend. Improving 5. Hypokalemia: K+ 3.2, will replace and recheck in am. Replace. Check magnesium and replace accordingly 6. Finger Fx: X-ray w/ 3rd finger tuft fracture, images reviewed by me, non-op , analgesics as needed. Deven taping 7. DVT Prophylaxis: SCD/Teds. Pt Condition on Discharge: Stable Discharge Disposition: Disc to Psych Care Fac Discharge Time: > 30 minutes Discharge Instructions DIET: Follow Instructions for: Heart Healthy Diet Activities you can perform: Regular-No Restrictions Activities to Avoid: Driving Follow up Referrals: PCP Follow-up - 1 Week New Orders: BASIC METABOLIC PROF - 07/18/17 CBC WITH DIFF - 07/18/17 CREATININE KINASE - 07/18/17 New Medications: Clonidine (Catapres) 0.1 Mg Tab 0.1 MG PO Q6H PRN for SBP> OR = 180, DBP> OR = 100, #30 TAB Lorazepam (Ativan) 1 Mg Tab 1 MG PO Q4H PRN for CIWA 8 - 10, #10 TAB Lorazepam Inj (Ativan Inj) 2 Mg/Ml Inj 2 MG IV PUSH Q1H PRN for CIWA 15-20, #10 INJECTION Lorazepam Inj (Ativan Inj) 2 Mg/Ml Inj 2 MG IV PUSH Q15M PRN for CIWA > 20, #10 INJECTION Lorazepam Inj (Ativan Inj) 2 Mg/Ml Inj 1 MG IV PUSH Q4H PRN for CIWA 8 - 10, #10 INJECTION Lorazepam Inj (Ativan Inj) 2 Mg/Ml Inj 2 MG IV PUSH Q2H PRN for CIWA 11-14, #10 INJECTION Lorazepam (Ativan) 2 Mg Tab 2 MG PO Q2H PRN for CIWA 11-14, #10 TAB Continued Medications: Pantoprazole (Protonix) 20 Mg Tab 20 MG PO BID for Reflux, #30 TAB 0 Refills Sucralfate (Carafate) 1 Gm Tab 1 GM PO QID for Ulcer Prevention, #120 TAB 0 Refills On empty stomach Michel Ferraro MD Jul 17, 2017 13:51
--- NOTE | 2017-07-17 14:47 | EKG ---
Date Performed: 07/16/2017 Time Performed: 20:50:43 PTAGE: 51 years EKG: Sinus rhythm NORMAL ECG PREVIOUS TRACING : 06/19/2017 22.01 DOCTOR: Juliette Pereira Interpretating Date/Time 07/17/2017 14:44:34
[2017-07-17] MEDS ORDERED: LORA-475 PO (15:32)
[2017-07-17] MEDS ORDERED: LORA-474 PO (15:32)
[2017-07-17] MEDS ORDERED: ATIV2INJ2 IV PUSH ×4 (15:32)
[2017-07-17] MEDS ORDERED: CLON.1 PO (15:32)
[2017-07-17] MEDS ORDERED: VITA100T54 PO (15:41)
[2017-07-17] MEDS ORDERED: MAGN400T3 PO (15:41)
[2017-07-17 16:00] VITALS: BP 173/97; PULSE 83; RESP 20; TEMP 97.9; O2SAT 98
== END 2017-07-17 19:26 | DRG 558 ==
LOC: NEPE 20:13 → NEDA 23:01 → N04A 07-17 01:38
PROVIDERS: ADMIT Internal Medicine; ATTEND Internal Medicine
DX: M62.82 Rhabdomyolysis (principal); R45.851 Suicidal ideations; K74.60 Unspecified cirrhosis of liver; B19.10 Unspecified viral hepatitis B without hepatic coma; F10.129 Alcohol abuse with intoxication, unspecified; I10 Essential (primary) hypertension; B19.20 Unspecified viral hepatitis C without hepatic coma; M06.9 Rheumatoid arthritis, unspecified; F41.9 Anxiety disorder, unspecified; F32.9 Major depressive disorder, single episode, unspecified; J44.9 Chronic obstructive pulmonary disease, unspecified; K21.9 Gastro-esophageal reflux disease without esophagitis; G47.00 Insomnia, unspecified; F17.210 Nicotine dependence, cigarettes, uncomplicated; E87.6 Hypokalemia; Y90.8 Blood alcohol level of 240 mg/100 ml or more; S62.633A Displaced fracture of distal phalanx of left middle finger, initial encounter for closed fracture; W22.8XXA Striking against or struck by other objects, initial encounter
CPT/HCPCS: 70450; 71010; 73130; 80053; 80307; 82550; 82552; 82948; 83735; 84484; 85025; 85610; 85730; 90686; 93005; 93306; J2270; J2405; J3411; J3475; J3480; J7030; Q2038

== ENCOUNTER 2017-07-17 18:00 | Inpatient (IN) | payer OTHER ==
[~2017-07-17] VITALS: Ht 198.1 cm; Wt 81.6 kg
[~2017-07-17 18:00] MED LIST changes: +AMBI10TA PO; +ATIV2INJ2 IV PUSH; +CLON.1 PO; -FOLI1TAB6 PO; -GNP100TA3 PO; -HYDR-4107 PO; +LORA-474 PO; +LORA-475 PO; +MAGN400T3 PO; -MORP1TAB24 PO; +VITA100T54 PO
[2017-07-17 20:02] VITALS: BP 158/101; PULSE 92; RESP 20; TEMP 97.6; O2SAT 96
[2017-07-17] MEDS ORDERED: ALUMINUM/MAGNESIUM/SIMETH 30 ML CUP PO PRN (21:45)
[2017-07-17] MEDS ORDERED: MAGNESIUM HYDROXIDE SUSP 30 ML CUP PO PRN (21:45)
[2017-07-17] MEDS ORDERED: LORazepam 1 MG TAB PO PRN (21:45)
[2017-07-17] MEDS ORDERED: LORazepam 2 MG/ML VIAL IM PRN (21:45)
[2017-07-17] MEDS ORDERED: LORazepam 2 MG TAB PO PRN (21:45)
[2017-07-17] MEDS ORDERED: LORazepam 2 MG/ML VIAL IV PUSH PRN ×3 (21:45)
[2017-07-17] MEDS ORDERED: ACETAMINOPHEN 325 MG TAB PO PRN (21:45)
[2017-07-17] MEDS ORDERED: FLUMAZENIL 0.5 MG/5 ML VIAL IV PUSH PRN (21:45)
[2017-07-17] MEDS: LORazepam 2 MG/ML VIAL IV PUSH PRN (21:52)
[2017-07-17] MEDS ORDERED: cloNIDine HCL 0.2 MG TAB PO PRN (22:30)
[2017-07-18] MEDS: LORazepam 2 MG/ML VIAL IV PUSH PRN ×5 (00:07→23:10)
[2017-07-18 06:02] VITALS: BP 109/76; PULSE 83; RESP 18; TEMP 97.1; O2SAT 97
[2017-07-18 06:25] LABS: ANION GAP 8 MEQ/L (5-15); BICARBONATE 25.1 MEQ/L (21.0-32.0); BLOOD UREA NITROGEN 5 MG/DL (7-18); CHLORIDE 103 MEQ/L (98-107); GLOMERULAR FILTRATION RATE 168 ML/MIN (>89); LDL CHOLESTEROL 78 MG/DL (0-99); SODIUM (NA) 136 MEQ/L (136-145)
[2017-07-18 06:26] LABS: POTASSIUM 3.9 MEQ/L (3.5-5.1)
[2017-07-18] MEDS: NICOTINE 21 MG/24 HR PATCH T-DERMAL SCH (09:00)
[2017-07-18] MEDS ORDERED: INFLUENZA VIRUS VACCINE (QUADRIVALENT) 0.5 ML SYR IM ONE (09:00)
--- NOTE | 2017-07-18 09:08 | PD.CONS ---
[facility] Consult Requested By Dr. Cifuentes Reason for Consult Medical management Primary Care Physician Maribell Chang MD Diagnoses: (1) Major depressive disorder, recurrent (2) Rhabdomyolysis (3) Alcohol withdrawal (4) Hypokalemia History of Present Illness The patient is a 51-year-old male who is currently admitted to the medical/ psychiatric unit. He was discharged from the medical service yesterday to psychiatry. He states that he is still having withdrawal symptoms. Also reporting abdominal pain stating "my pancreas is inflamed". He reports nausea, but no vomiting. He reports pain in his extremities, worse in both feet. No chest pain or dyspnea. Review of Systems Constitutional: DENIES: Fever, Chills, Night Sweats Eyes: DENIES: Blurred vision, Vision loss Ears, nose, mouth, throat: DENIES: Hearing loss Respiratory: DENIES: Cough, Wheezing, Sputum production, Shortness of breath Cardiovascular: DENIES: Chest pain, Palpitations, Dyspnea on Exertion, Lower Extremity Edema Gastrointestinal: COMPLAINS OF: Nausea, DENIES: Abdominal pain, Constipation, Diarrhea, Vomiting Genitourinary: DENIES: Urinary frequency, Urinary incontinence, Urgency, Hematuria, Dysuria, Nocturia Musculoskeletal: COMPLAINS OF: Joint pain, Muscle aches Integumentary: DENIES: Pruritus, Rash Hematologic/lymphatic: DENIES: Bruising Neurologic: DENIES: Headache Past Family Social History Allergies: Coded Allergies: prednisone (Unverified Allergy, Severe, Rash, 07/16/17) Past Medical History Anxiety Depression Hypertension Hepatitis B Hepatitis C next line COPD Alcohol abuse Tobacco abuse Past Surgical History Liver biopsy Tonsillectomy Right ankle surgery Reported Medications See list Family History Denies family history. Specifically no diabetes, heart disease. Social History Drinks one half gallon of vodka daily. Smokes 10 cigarettes per day. Denies illicit drug use, although electronic medical record shows reported history of illicit drug use in the past. Physical Exam Vital Signs Vital Signs Date Time Temp Pulse Resp B/P (MAP) Pulse Ox O2 Delivery O2 Flow Rate FiO2 07/18/17 06:02 97.1 83 18 109/76 (87) 97 07/17/17 20:02 97.6 92 20 158/101 (120) 96 Physical Exam GENERAL: Well-nourished, well-developed male in no acute distress. Tremulous. HEENT: Normocephalic, atraumatic. Pupils equal, round and reactive. Extraocular movements intact. No scleral icterus. No injection or drainage. Oropharynx is clear. Mucous membranes are moist. CARDIOVASCULAR: Regular rate and rhythm without murmurs, gallops, or rubs. RESPIRATORY: Clear to auscultation. No wheezes, rales, or rhonchi. Breathing is non-labored. GASTROINTESTINAL: Abdomen soft, tender to palpation in the midepigastric region , nondistended. EXTREMITIES: No lower extremity edema. No calf tenderness. PSYCH: Alert and oriented x 3. Laboratory Laboratory Tests Test 07/18/17 04:09 Blood Urea Nitrogen 5 Creatinine 0.52 Random Glucose 109 Calcium Level 8.9 Sodium Level 136 Potassium Level 3.9 Chloride Level 103 Carbon Dioxide Level 25.1 Anion Gap 8 Estimat Glomerular Filtration Rate 168 Triglycerides Level 80 Cholesterol Level 170 LDL Cholesterol 78 HDL Cholesterol 76.0 Cholesterol/HDL Ratio 2.23 Result Diagram: 07/18/17 0409 Assessment and Plan Assessment and Plan 1. Suicidal ideation: Admitted to inpatient psychiatry. 2. Alcohol abuse, withdrawal: Continue CIWV protocol. Multivitamin, thiamine, folate. Seizure/withdrawal precautions. 3. Rhabdomyolysis: CK trending down. Restart IV fluids. Repeat CK this morning. 4. Hypokalemia: Potassium improved with replacement. 5. DVT prophylaxis: Ambulation. Frank Oliver MD Jul 18, 2017 09:08
[2017-07-18] MEDS: NS + KCL 20 MEQ INJ 1,000 ML IV SCH ×2 (10:00→20:20)
--- NOTE | 2017-07-18 10:52 | HHI.HP ---
Provisional Diagnosis Admission Date Jul 17, 2017 at 19:29 [place] I. Major depressive disorder, rule out Substance-induced depressive disorder, alcohol use disorder Certification of Person's Competence To Provide Express and Informed Consent I have personally examined Porfirio Pink , a person being served at [facility] on, Jul 18, 2017 10:52. Express and informed consent means consent voluntarily given in writing, by a competent person, after sufficient explanation and disclosure of the subject matter involved to enable the person to make a knowing and willful decision without any element of force, fraud, deceit, duress, or other form of constraint or coercion. This person is 18 years of age or older, is not now known to be incompetent to consent to treatment with a guardian advocate, and does not have a health care surrogate or proxy currently making medical treatment decisions. I have found this person to be one of the following: [x] Competent to provide express and informed consent, as defined above, for voluntary admission to this facility and is competent to provide express and informed consent for treatment. He/she has the consistent capacity to make well reasoned, willful, and knowing decisions concerning his or her medical or mental health treatment. The person fully and consistently understands the purpose of the admission for examination/placement and is fully capable of personally exercising all rights assured [place] Incompetent to provide express and informed consent to voluntary admission, and this is incompetent to provide express and informed consent to treatment. The person must be transferred to involuntary status and a petition for a guardian advocate filed with the Circuit Court. [] Refusing to provide express and informed consent to voluntary admission but is competent to provide express and informed consent for treatment. The person must be discharged or transferred to involuntary status. Form shall be completed within 24 hours of a person's arrival at the receiving facility and filed in the clinical record of each person: 1. Admitted on a voluntary basis 2. Permitted to provide express and informed consent to his/her own treatment 3. Allowed to transfer from involuntary to voluntary status 4. Prior to permitting a person to consent to his or her own treatment after having been previously found incompetent to consent to treatment. History of Present Illness Capacity: Has Capacity Psych Chief Complaint: alcohol withdrawal, depressive symptoms with SI HPI Patient is a 54 y/o man, single, unemployed, domiciled with mother, with past psychiatric history of alcohol use disorder, with past episodes of alcohol withdrawals, no prior psychiatric admissions, no prior suicide attempts or self injurious behavior, with past medical history of HTN, COPD, Hep B and C , hx of TB, chronic pancreatitis, who was brought into the ED for suicidal ideations after stating wanting to drink himself to . Patient was admitted to the medical floor for evaluation of syncope, and treated for rhabdomyolysis, hypokalemia, finger fracture and alcohol abuse which psychiatry consult team was consulted for SI. As per consult note, patient stated that he did have an argument with mother and after this argument he decided to overdose with the intention to . He does report depression, guiltiness, continue sensations of being a failure for the society and for his family, frequent suicidal thoughts, increased use of alcohol in the last month to the point that he doesn't care anymore. Collateral information form Diann Flores, ; Who states that the patient, after argument with her, tried to commit suicide by overdosing with pills. She says that he has tried to do this before, but this time she was really scared because he took a bunch of pills he was really drunk "I thought that he was , it was really scary". Patient was transferred to the medical/psychiatry unit for further evaluation and management. Patient was found lying on hospital bed, calm and cooperative with interview. Patient alert and oriented x 3, stated that he had an argument with his stepfather because he was yelling at his mother. He states that his mother called the police because she was concerned about his drinking. He denies having suicidal ideation or having overdosed as stated by collateral information previously. He states feeling tired of being in pain. He states wanting to be alive but sometimes would like to be alone, e.g. get away from the yelling. He reports decreased sleep, appetite, and energy, no change in concentration, no feelings of guilt, reports feeling a little helpless sometimes, denies feeling hopeless or having SI. Currently he reports feeling depressed, denies any perceptual disturbances, SI, HI or delusions. Family psychiatric history: mother with history of Alzheimers, brother and sister with bipolar disorder; no suicides in the family Past psychiatric history: ETOH use disorder, depression as per chart, patient denies previous psychiatric diagnosis, no previous psychiatric admissions , no previous suicide attempts or self injurious behavior. No previous medication trials. Reports denies history of abuse. Substance use history: Tobacco (+), ETOH use daily, usually one-fifth to one gallon of vodka at a time, THC last use was months ago; denies use of any other substance; previous detox or rehabilitation programs (last February 2017 @ [facility]). Past medical history: HTN, COPD, Hep B & C, chronic pancreatitis, RA, hx of TB Allergies: prednisone Social history: single, domiciled with mother, unemployed, highest education: 11 th grade. Denies having any firearms in the home. Denies any legal history. Review of Systems Except as stated in HPI: all other systems reviewed are Neg Past Psych History Psychological trauma history denies Violence risk - others (6 mos) low Violence risk - self (6 mos) Increased risk due to recent endorsement of SI, untreated depression, limited social support, alcohol use disorder Substance Abuse History Drugs/Alcohol past 12 months Tobacco (+), ETOH use daily, usually one-fifth to one gallon of vodka at a time , THC last use was months ago; denies use of any other substance; previous detox or rehabilitation programs (last February 2017 @ [facility]). Past Family Social History Coded Allergies: prednisone (Unverified Allergy, Severe, Rash, 07/16/17) Active Scripts Thiamine (Vitamin B-1) 100 Mg Tab, 100 MG PO DAILY for Nutritional Supplement, # 30 TAB 0 Refills Prov:Michel Ferraro MD 07/17/17 Magnesium Oxide (Magnesium Oxide) 400 Mg Tab, 400 MG PO Q12HR for Electrolyte Replacement, #6 TAB Prov:Michel Ferraro MD 07/17/17 Lorazepam Inj (Ativan Inj) 2 Mg/Ml Inj, 2 MG IV PUSH Q2H Y for CIWA 11-14, #10 INJECTION Prov:Susan Bustillo 07/17/17 Lorazepam Inj (Ativan Inj) 2 Mg/Ml Inj, 1 MG IV PUSH Q4H Y for CIWA 8 - 10, #10 INJECTION Prov:Susan Bustillo 07/17/17 Lorazepam Inj (Ativan Inj) 2 Mg/Ml Inj, 2 MG IV PUSH Q15M Y for CIWA > 20, #10 INJECTION Prov:Nudalo-Traceyti,Iszenn WEB ART DIRECTOR 07/17/17 Lorazepam Inj (Ativan Inj) 2 Mg/Ml Inj, 2 MG IV PUSH Q1H Y for CIWA 15-20, #10 INJECTION Prov:Nudalo-Briganti,Iszenn WEB ART DIRECTOR 07/17/17 Lorazepam (Ativan) 2 Mg Tab, 2 MG PO Q2H Y for CIWA 11-14, #10 TAB Prov:Nudalo-Briganti,Iszenn WEB ART DIRECTOR 07/17/17 Lorazepam (Ativan) 1 Mg Tab, 1 MG PO Q4H Y for CIWA 8 - 10, #10 TAB Prov:Nudalo-Briganti,Iszenn WEB ART DIRECTOR 07/17/17 Clonidine (Catapres) 0.1 Mg Tab, 0.1 MG PO Q6H Y for SBP> OR = 180, DBP> OR = 100, #30 TAB Prov:Nudalo-Briganti,Iszenn WEB ART DIRECTOR 07/17/17 Reported Medications Zolpidem (Ambien) 10 Mg Tab, 10 MG PO HS Y for INSOMNIA, TAB 0 Refills 07/16/17 Pantoprazole (Protonix) 20 Mg Tab, 20 MG PO BID for Reflux, #30 TAB 0 Refills 05/19/17 Sucralfate (Carafate) 1 Gm Tab, 1 GM PO QID for Ulcer Prevention, #120 TAB 0 Refills On empty stomach 05/19/17 Discontinued Reported Medications Morphine ER (Morphine ER) 15 Mg Tab, PO BID for Pain Management, TAB 0 Refills 05/08/17 Hydrocodone-Acetaminophen (Hydrocodone-Acetaminophen) 5-300 Mg Tab, PO Q4H Y for PAIN, TAB 0 Refills 05/08/17 Discontinued Scripts Thiamine HCl (Gnp Vitamin B-1) 100 Mg Tab, 100 MG PO DAILY for ETOH, #10 TAB Prov:Frank Rey 05/22/17 Folic Acid (Folic Acid) 1 Mg Tablet, 1 MG PO DAILY for ETOH for 10 Days, TAB Prov:Frank Rey 05/22/17 Current Medications Medications (Trade) Dose Ordered Sig/Karlos Route Start Time Stop Time Status Last Admin (Ativan) 1 mg Q4H PRN PO 07/17/17 21:45 (Ativan Inj) 1 mg Q4H PRN IV PUSH 07/17/17 21:45 (Ativan) 2 mg Q2H PRN PO 07/17/17 21:45 (Ativan Inj) 2 mg Q2H PRN IV PUSH 07/17/17 21:45 07/18/17 09:00 (Ativan Inj) 2 mg Q1H PRN IV PUSH 07/17/17 21:45 07/18/17 04:14 (Ativan Inj) 2 mg Q15M PRN IV PUSH 07/17/17 21:45 (Romazicon Inj) 0.2 mg Q1M PRN IV PUSH 07/17/17 21:45 (Ativan) 1 mg Q6H PRN PO 07/17/17 21:45 (Ativan Inj) 1 mg Q6H PRN IM 07/17/17 21:45 (Tylenol) 650 mg Q4H PRN PO 07/17/17 21:45 (Milk Of Magnesia Liq) 30 ml DAILY PRN PO 07/17/17 21:45 07/17/17 21:46 (Mag-Al Plus Susp Liq) 30 ml Q6H PRN PO 07/17/17 21:45 (Habitrol 21 Mg Patch.24 Hr) 1 patch DAILY T-DERMAL 07/18/17 09:00 Miscellaneous Information 1 HS T-DERMAL 07/18/17 21:00 (Catapres) 0.2 mg Q6H PRN PO 07/17/17 22:30 07/17/17 23:11 Potassium Chloride/Sodium Chloride 1,000 ml @ 100 mls/hr Q10H IV 07/18/17 10:00 Family Psych History mother with history of Alzheimers, brother and sister with bipolar disorder; no suicides in the family Social History domiciled with mother, unemployed, highest education: 11th grade. Denies having any firearms in the home. Denies any legal history. Patient's Strengths (min. 2) verbal and communicative Physical Exam Patient found to be in no acute distress but noted to have some tremor, not diaphoretic at this time, somewhat restless, no noted gross motor abnormalities , no EPS, no noted psychomotor agitation of retardation. Vital Signs Vital Signs Date Time Temp Pulse Resp B/P (MAP) Pulse Ox O2 Delivery O2 Flow Rate FiO2 07/18/17 06:02 97.1 83 18 109/76 (87) 97 I/O 07/18/17 07/18/17 07/19/17 08:00 16:00 00:00 Intake Total 240 ml Output Total 240 ml Balance 0 ml Lab Results Labs reviewed. Test 07/18/17 04:09 Blood Urea Nitrogen 5 MG/DL Creatinine 0.52 MG/DL Random Glucose 109 MG/DL Calcium Level 8.9 MG/DL Sodium Level 136 MEQ/L Potassium Level 3.9 MEQ/L Chloride Level 103 MEQ/L Carbon Dioxide Level 25.1 MEQ/L Anion Gap 8 MEQ/L Estimat Glomerular Filtration Rate 168 ML/MIN Triglycerides Level 80 MG/DL Cholesterol Level 170 MG/DL LDL Cholesterol 78 MG/DL HDL Cholesterol 76.0 MG/DL Cholesterol/HDL Ratio 2.23 RATIO Mental Status Examination Appearance: Disheveled (slightly) Consciousness: Alert Orientation: x4 Motor Activity: Normal gait Speech: Unremarkable Language: Adequate Fund of Knowledge: Adequate Attention and Concentration: Easily Distracted Memory: Impaired (memory of events surrounding his intoxication impaired) Mood: Sad, Anxious Affect: Anxious Thought Process & Associations: Linear Thought Content: Appropriate Hallucination Type: None Delusion Type: None Suicidal Ideation: Yes (denies at time of interview) Suicidal Plan: No Suicidal Intention: No Homicidal Ideation: No Homicidal Plan: No Homicidal Intention: No Insight: Poor Judgment: Poor Assessment & Plan Problem List: (1) Major depressive disorder, recurrent ICD Codes: F33.9 - Major depressive disorder, recurrent, unspecified (2) Alcohol withdrawal ICD Codes: F10.239 - Alcohol dependence with withdrawal, unspecified Status: Acute Assessment & Plan Estimated LOS: 5-7 days. Patient is a 54 y/o man who carries a diagnosis of alcohol use disorder, depression who was admitted to the medical/psychiatry unit for suicidal ideation in the context of alcohol intoxication. Patient with reported depressive symptoms but currently endorses different account of events that brought him to the hospital. Patient likely unable to recall due to his intoxication. Patient will be kept for further evaluation and management for alcohol withdrawal, management of depression, as well as for safety. Patient agrees for voluntary admission. Will defer from starting antidepressant due to current degree of withdrawal symptoms (e.g. nausea and vomiting) and attempt to start tomorrow if patient able to tolerate PO. Continue CIWA protocol and recommendations as per primary medical team. Seizure precautions. Continue to monitor mood and behavior. Collateral pending. Discharge planning in progress. Discharge Planning Patient to be referred to rehabilitation program once medically and psychiatrically stable. Larry Torres MD Jul 18, 2017 10:52
[2017-07-18] MEDS: FOLIC ACID 1 MG TAB PO SCH (11:58)
[2017-07-18] MEDS: THIAMINE HCL 100 MG TAB PO SCH (11:59)
[2017-07-18] MEDS: MULTIVITAMIN TAB PO SCH (11:59)
[2017-07-18 13:36] LABS: CKMB 1.8 NG/ML (0.5-3.6)
[2017-07-18] MEDS: NAPROXEN SODIUM 550 MG TAB PO SCH ×2 (14:00→20:20)
[2017-07-18] MEDS: LORazepam 1 MG TAB PO PRN ×2 (17:59→20:20)
[2017-07-18 18:00] VITALS: BP 123/78; PULSE 80; RESP 18; TEMP 99.4; O2SAT 95
[2017-07-18 20:57] LABS: HEMOGLOBIN A1a 0.7 %; HEMOGLOBIN A1b 1.3 %; HEMOGLOBIN Ao 85.9 %; HEMOGLOBIN LA1C 2.2 %; HEMOGLOBIN P3 3.5 %
[2017-07-18] MEDS ORDERED: REMOVE OLD NICOTINE PATCH T-DERMAL SCH (21:00)
[2017-07-19] MEDS: LORazepam 2 MG/ML VIAL IV PUSH PRN ×2 (01:21→05:20)
[2017-07-19] MEDS: NS + KCL 20 MEQ INJ 1,000 ML IV SCH (05:19)
[2017-07-19 06:40] VITALS: BP 127/71; PULSE 69; RESP 18; TEMP 98.2; O2SAT 95
[2017-07-19] MEDS: LORazepam 1 MG TAB PO PRN (07:33)
[2017-07-19] MEDS: NICOTINE 21 MG/24 HR PATCH T-DERMAL SCH (07:41)
[2017-07-19] MEDS ORDERED: ONDANSETRON HCL 4 MG/2 ML VIAL IV PUSH PRN (09:45)
[2017-07-19] MEDS: THIAMINE HCL 100 MG TAB PO SCH (09:57)
[2017-07-19] MEDS: NAPROXEN SODIUM 550 MG TAB PO SCH (09:57)
[2017-07-19] MEDS: FOLIC ACID 1 MG TAB PO SCH (09:57)
[2017-07-19] MEDS: MULTIVITAMIN TAB PO SCH (09:57)
[2017-07-19 10:10] VITALS: BP 140/107; PULSE 86; RESP 18; TEMP 98; O2SAT 96
--- NOTE | 2017-07-19 10:51 | HHI.DS ---
Psychiatry Discharge Summary Inpatient Psychiatric care?: Yes Advance Directive: No Reason Not Provided: doesn't want Mental Health AdvanceDirective: No Health Care Proxy: No Admission Admission Date Jul 17, 2017 at 19:29 Admission Diagnosis: (1) Alcohol abuse ICD Code: F10.10 - Alcohol abuse, uncomplicated Brief History Patient is a 54 y/o man, single, unemployed, domiciled with mother, with past psychiatric history of alcohol use disorder, with past episodes of alcohol withdrawals, no prior psychiatric admissions, no prior suicide attempts or self injurious behavior, with past medical history of HTN, COPD, Hep B and C , hx of TB, chronic pancreatitis, who was brought into the ED for suicidal ideations after stating wanting to drink himself to . Patient was admitted to the medical floor for evaluation of syncope, and treated for rhabdomyolysis, hypokalemia, finger fracture and alcohol abuse which psychiatry consult team was consulted for SI. As per consult note, patient stated that he did have an argument with mother and after this argument he decided to overdose with the intention to . He does report depression, guiltiness, continue sensations of being a failure for the society and for his family, frequent suicidal thoughts, increased use of alcohol in the last month to the point that he doesn't care anymore. Collateral information form Diann Flores, ; Who states that the patient, after argument with her, tried to commit suicide by overdosing with pills. She says that he has tried to do this before, but this time she was really scared because he took a bunch of pills he was really drunk "I thought that he was , it was really scary". Patient was transferred to the medical/psychiatry unit for further evaluation and management. Patient was found lying on hospital bed, calm and cooperative with interview. Patient alert and oriented x 3, stated that he had an argument with his stepfather because he was yelling at his mother. He states that his mother called the police because she was concerned about his drinking. He denies having suicidal ideation or having overdosed as stated by collateral information previously. He states feeling tired of being in pain. He states wanting to be alive but sometimes would like to be alone, e.g. get away from the yelling. He reports decreased sleep, appetite, and energy, no change in concentration, no feelings of guilt, reports feeling a little helpless sometimes, denies feeling hopeless or having SI. Currently he reports feeling depressed, denies any perceptual disturbances, SI, HI or delusions. Family psychiatric history: mother with history of Alzheimers, brother and sister with bipolar disorder; no suicides in the family Past psychiatric history: ETOH use disorder, depression as per chart, patient denies previous psychiatric diagnosis, no previous psychiatric admissions , no previous suicide attempts or self injurious behavior. No previous medication trials. Reports denies history of abuse. Substance use history: Tobacco (+), ETOH use daily, usually one-fifth to one gallon of vodka at a time, THC last use was months ago; denies use of any other substance; previous detox or rehabilitation programs (last February 2017 @ [facility]). Past medical history: HTN, COPD, Hep B & C, chronic pancreatitis, RA, hx of TB Allergies: prednisone Social history: single, domiciled with mother, unemployed, highest education: 11 th grade. Denies having any firearms in the home. Denies any legal history. Tobacco Use In Past 30 Days: 5 or More Cigarettes/Day Alcohol Use: 4 or More Times Per Week Hospital Course Signed right to release. Results Blood Pressure 140 / 107 Vital Signs Date Time Temp Pulse Resp B/P (MAP) Pulse Ox O2 Delivery O2 Flow Rate FiO2 07/19/17 10:10 98.0 86 18 140/107 (118) 96 Laboratory Tests Test 07/18/17 04:09 Blood Urea Nitrogen 5 MG/DL (7-18) Creatinine 0.52 MG/DL (0.60-1.30) Random Glucose 109 MG/DL (74-106) Total Creatine Kinase 792 U/L (39-308) HDL Cholesterol 76.0 MG/DL (40.0-60.0) Laboratory Results Test 07/18/17 04:09 Cholesterol Level 170 MG/DL (120-200) HDL Cholesterol 76.0 MG/DL (40.0-60.0) Hemoglobin A1c 5.6 % (4.3-6.0) LDL Cholesterol 78 MG/DL (0-99) Triglycerides Level 80 MG/DL (42-150) Summary of Procedures None Pending results at discharge: No Medications # of Antipsychotic meds at D/C: 0 Approp Antipsych med options 1 - Minimum of three failed multiple trials of monotherapy. 2 - Documented plan to taper to monotherapy due to previous use of multiple meds OR cross-taper in progress at D/C. 3 - Documentation of augmentation of Clozapine. 4 - Justification other than those listed in allowable values 1-3, document here : Discharge Discharge Date: Jul 19, 2017 Discharge Diagnosis: (1) Alcohol abuse Diagnosis: Principal ICD Code: F10.10 - Alcohol abuse, uncomplicated Pt Condition on Discharge: Stable Discharge Disposition: Discharge Home Discharge Instructions Diet Instructions: As Tolerated, No Restrictions Activities you can perform: Regular-No Restrictions Discharge Time <= 30 minutes Mental Status Examination Appearance: Disheveled (slightly) Consciousness: Alert Orientation: x4 Motor Activity: Normal gait Speech: Unremarkable Language: Adequate Fund of Knowledge: Adequate Attention and Concentration: Easily Distracted Memory: Impaired (memory of events surrounding his intoxication impaired) Mood: Sad, Anxious Affect: Anxious Thought Process & Associations: Linear Thought Content: Appropriate Hallucination Type: None Delusion Type: None Suicidal Ideation: Yes (denies at time of interview) Suicidal Plan: No Suicidal Intention: No Homicidal Ideation: No Homicidal Plan: No Homicidal Intention: No Insight: Poor Judgment: Poor Discharge/Advance Care Plan Health Problems: (1) Major depressive disorder, recurrent (2) Alcohol withdrawal Goals to promote your health * To prevent worsening of your condition and complications * To maintain your health at the optimal level Directions to meet your goals Take your medications as prescribed Follow your dietary instruction Follow activity as directed Keep your appointments as scheduled Take your immunizations and boosters as scheduled If your symptoms worsen call your PCP, if no PCP go to Urgent Care Center or Emergency Room For / questions related to your inpatient stay or results of tests pending at discharge, please contact Dr. Gordo Guerin at Smoking is Dangerous to Your Health. Avoid second hand smoking Gordo Guerin MD Jul 19, 2017 10:51
[2017-07-19 11:39] LABS: AUTOMATED NEUTROPHIL # 3.8 TH/MM3 (1.8-7.7); BASOPHIL % 0.2 % (0.0-2.0); EOSINOPHIL # 0.1 TH/MM3 (0-0.4); EOSINOPHIL % 2.4 % (0.0-4.0); LYMPH % 22.8 % (9.0-44.0); LYMPHOCYTE # 1.3 TH/MM3 (1.0-4.8); MEAN CELL VOLUME 92.9 FL (80.0-100.0); MEAN CORPUSCULAR HEMOGLOBIN 30.6 PG (27.0-34.0); MONO % 6.8 % (0.0-8.0); NEUT % 67.8 % (16.0-70.0); PLATELET COUNT 83 TH/MM3 (150-450); RED BLOOD COUNT 4.74 MIL/MM3 (4.50-5.90); RED CELL DISTRIBUTION WIDTH 18.1 % (11.6-17.2); WHITE BLOOD COUNT 5.7 TH/MM3 (4.0-11.0)
[2017-07-19 11:40] LABS: HEMO FLAGS AUTO DIFF
[2017-07-19 11:59] LABS: BICARBONATE 22.9 MEQ/L (21.0-32.0); POTASSIUM 4.2 MEQ/L (3.5-5.1)
[2017-07-19] MEDS ORDERED: CARA1TAB6 PO (12:10)
[2017-07-19] MEDS ORDERED: THERTAB15 PO (12:25)
[2017-07-19] MEDS ORDERED: PANT20 PO (12:25)
[2017-07-19 12:41] LABS: PLATELET ESTIMATE SMEAR LOW (NORMAL); PLATELET MORPHOLOGY NORMAL (NORMAL); SCAN/DIFF AUTO DIFF CONFIRMED
[2017-07-19 12:43] VITALS: BP 149/89; PULSE 98; RESP 18; TEMP 98; O2SAT 98
--- NOTE | 2017-07-19 14:15 | HHI.PR ---
Subjective Remarks Follow up rhabdomyolysis. Patient states that he is going home. He has been discharged by psychiatry. Withdrawal symptoms are much improved. Patient still having some abdominal discomfort. Requesting refill of carafate, Protonix. Objective Vitals Vital Signs Date Time Temp Pulse Resp B/P (MAP) Pulse Ox O2 Delivery O2 Flow Rate FiO2 07/19/17 12:43 98.0 98 18 149/89 (109) 98 07/19/17 11:03 18 07/19/17 10:10 98.0 86 18 140/107 (118) 96 07/19/17 06:40 98.2 69 18 127/71 (89) 95 07/18/17 18:00 99.4 80 18 123/78 (93) 95 I/O 07/18/17 07/18/17 07/18/17 07/19/17 07/19/17 07/19/17 07:00 15:00 23:00 07:00 15:00 23:00 Intake Total 480 ml 360 ml 1080 ml 1960 ml 840 ml Output Total 240 ml Balance 240 ml 360 ml 1080 ml 1960 ml 840 ml Intake Oral 480 ml 360 ml 1080 ml 1960 ml 840 ml Output Urine Total 240 ml # Voids 3 4 4 # Bowel Movements 1 Result Diagram: 07/19/17 1127 07/19/17 1127 Objective Remarks General: No acute distress. Heart: Regular rate and rhythm. No murmur. Lungs: Clear to auscultation bilaterally. No wheezes, rales, or rhonchi. Breathing is nonlabored. Abdomen: Soft, nontender, nondistended. Extremities: No lower extremity edema. Psych: Alert and oriented. Procedures None Urinary Catheter: No Vascular Central Line Catheter: No A/P Problem List: (1) Major depressive disorder, recurrent ICD Code: F33.9 - Major depressive disorder, recurrent, unspecified (2) Rhabdomyolysis ICD Code: M62.82 - Rhabdomyolysis (3) Alcohol withdrawal ICD Code: F10.239 - Alcohol dependence with withdrawal, unspecified Status: Acute (4) Hypokalemia ICD Code: E87.6 - Hypokalemia Status: Acute Assessment and Plan 1. Suicidal ideation, major depressive disorder: Management per psychiatry. Patient has been discharged by psychiatry. 2. Alcohol abuse, withdrawal: CIWA protocol per psychiatry. Multivitamin, thiamine, folate. Symptoms have improved. 3. Rhabdomyolysis: CK trending down. Encourage hydration. 4. Hypokalemia: Improved. Discharge Planning Discharge home today per psychiatry. Frank Oliver MD Jul 19, 2017 14:15
== END 2017-07-19 13:10 | disposition home or self-care (01) | DRG 885 ==
LOC: H4EA 19:29
PROVIDERS: ADMIT Student in an Organized Health Care Education/Training Program; ATTEND Student in an Organized Health Care Education/Training Program
DX: F33.9 Major depressive disorder, recurrent, unspecified (principal); M62.82 Rhabdomyolysis; R45.851 Suicidal ideations; B19.10 Unspecified viral hepatitis B without hepatic coma; F10.230 Alcohol dependence with withdrawal, uncomplicated; I10 Essential (primary) hypertension; F17.210 Nicotine dependence, cigarettes, uncomplicated; J44.9 Chronic obstructive pulmonary disease, unspecified; M06.9 Rheumatoid arthritis, unspecified; F41.9 Anxiety disorder, unspecified; B19.20 Unspecified viral hepatitis C without hepatic coma; E87.6 Hypokalemia; Z81.8 Family history of other mental and behavioral disorders; Z86.11 Personal history of tuberculosis
CPT/HCPCS: 80048; 80061; 82550; 82552; 83036; 83735; 85025; J2060; J2405; J3480

== ENCOUNTER 2017-07-29 17:33 | Emergency (ER) | payer OTHER ==
[~2017-07-29] VITALS: Ht 198.1 cm; Wt 79.0 kg
[~2017-07-29 17:33] MED LIST changes: -ATIV2INJ2 IV PUSH; -LORA-474 PO; -LORA-475 PO; +THERTAB15 PO
[2017-07-29 17:46] VITALS: BP 152/84; PULSE 103; RESP 16; TEMP 98; O2SAT 96
[2017-07-29] MEDS ORDERED: SODIUM CHLOR 0.9% 1000 ML INJ 1,000 ML IV SCH (17:46)
[2017-07-29 17:54] VITALS: RESP 16; O2SAT 97
[2017-07-29] MEDS ORDERED: SODIUM CHLORIDE 0.9% FLUSH 10 ML FLUSH IV FLUSH PRN (18:00)
[2017-07-29] MEDS ORDERED: ONDANSETRON HCL 4 MG/2 ML VIAL IVP ONE (18:00)
[2017-07-29] MEDS ORDERED: THIAMINE INJ 100 MG in SODIUM CHLORIDE 0.9% INJ 100 ML IV ONE (18:00)
[2017-07-29] MEDS ORDERED: LORazepam 2 MG/ML VIAL IV PUSH ONE (18:00)
[2017-07-29 18:15] LABS: AUTOMATED NEUTROPHIL # 3.8 TH/MM3 (1.8-7.7); BASOPHIL # 0.1 TH/MM3 (0-0.2); BASOPHIL % 2.3 % (0.0-2.0); EOSINOPHIL # 0.1 TH/MM3 (0-0.4); EOSINOPHIL % 0.9 % (0.0-4.0); HEMATOCRIT 48.5 % (39.0-51.0); HEMO FLAGS DIFF FINAL; LYMPH % 33.9 % (9.0-44.0); LYMPHOCYTE # 2.2 TH/MM3 (1.0-4.8); MEAN CELL VOLUME 92.2 FL (80.0-100.0); MEAN CORPUSCULAR HEMOGLOBIN 30.1 PG (27.0-34.0); MEAN CORPUSCULAR HGB CONC 32.7 % (32.0-36.0); MONO % 4.8 % (0.0-8.0); NEUT % 58.1 % (16.0-70.0); PLATELET COUNT 223 TH/MM3 (150-450); RED BLOOD COUNT 5.26 MIL/MM3 (4.50-5.90); RED CELL DISTRIBUTION WIDTH 16.8 % (11.6-17.2); WHITE BLOOD COUNT 6.5 TH/MM3 (4.0-11.0)
[2017-07-29] MEDS ORDERED: THIAMINE HCL 100 MG TAB PO ONE (18:15)
[2017-07-29] MEDS ORDERED: ONDANSETRON ODT 4 MG TAB PO ONE (18:15)
[2017-07-29] MEDS ORDERED: KETOROLAC TROMETHAMINE 60 MG/2 ML (IM) VIAL IM ONE (18:15)
--- NOTE | 2017-07-29 18:16 | PD ---
HPI Chief Complaint: Pain: Acute or Chronic Time Seen by Provider: 17:46 Travel History International Travel<30 days: No Contact w/Intl Traveler<30days: No Traveled to known affect area: No History of Present Illness HPI 51yo M with PMH of alcohol abuse, substance abuse, chronic abdominal pain here because [facility] didnt have room today. Said he has been nauseous and vomiting since yesterday. States he is in alcohol withdrawal although he smells of alcohol and HR is 90bpm. States last alcohol use is 24 hours ago. Denies any fever, chest pain, sob, focal weakness or numbness. PFSH Past Medical History Hx Anticoagulant Therapy: No Arthritis: Yes (RA) Asthma: No Autoimmune Disease: No Blood Disorders: Yes (HEPATITIS B AND C NO TREATMENT) Anxiety: Yes Depression: No Heart Rhythm Problems: No Cancer: No Cardiovascular Problems: Yes (HTN) High Cholesterol: No Chemotherapy: No Chest Pain: Yes Congestive Heart Failure: No Cirrhosis: Yes COPD: Yes Cerebrovascular Accident: No Diabetes: No Diminished Hearing: No Endocrine: No Gastrointestinal Disorders: Yes (PANCREATITIS) GERD: Yes Genitourinary: No Headaches: Yes Hepatitis: Yes (B & C) Hiatal Hernia: No Heparin Induced Thrombocytopen: No Herniated Disk: Yes Hypertension: Yes Immune Disorder: No Implanted Vascular Access Dvce: Yes Insomnia: Yes Kidney Stones: No Musculoskeletal: Yes (CHRONIC BACK PAIN) Neurologic: Yes Psychiatric: Yes Reproductive: No Respiratory: Yes (COPD / TB) Integumentary: Yes (HX IV DRUG USE) Immunizations Current: Yes Migraines: Yes Pancreatitis: Yes Pneumonia: Yes Radiation Therapy: No Renal Failure: No Seizures: No Sickle Cell Disease: No Sleep Apnea: No Thyroid Disease: No Ulcer: Yes PNEUMOCCOCAL Vaccine (Year): 2 Past Surgical History Abdominal Surgery: Yes (LIVER BIOPSY) AICD: No Arteriovenous Shunt: No Body Medical Devices: STEEL PLATE IN RIGHT ANKLE Cardiac Surgery: No Ear Surgery: No Endocrine Surgery: Yes (LIVER BIOPSY) Eye Surgery: No Genitourinary Surgery: No Gynecologic Surgery: No Hysterectomy: No Insulin Pump: No Joint Replacement: No Neurologic Surgery: No Oral Surgery: No Pacemaker: No Thoracic Surgery: Yes (CHEST TUBE- R/O TB 2009) Tonsillectomy: Yes Other Surgery: Yes (RIGHT ANKLE PLATE/SCREWS) Social History Alcohol Use: Yes (1/5 VODKA DAILY) Tobacco Use: Yes (1/2 PPD) Substance Use: Yes (benzos, cocaine) Allergies-Medications (Allergen,Severity, Reaction): Coded Allergies: prednisone (Unverified Allergy, Severe, Rash, 07/29/17) Reported Meds & Prescriptions Reported Meds & Active Scripts Active Vitamin B-1 (Thiamine HCl) 100 Mg Tab 100 Mg PO DAILY Thera/Beta-Carotene (Multiple Vitamin) 1 Tab Tab 1 Tab PO DAILY Protonix (Pantoprazole Sodium) 20 Mg Tab 20 Mg PO BID Carafate (Sucralfate) 1 Gm Tab 1 Gm PO QID On empty stomach Vitamin B-1 (Thiamine HCl) 100 Mg Tab 100 Mg PO DAILY Magnesium Oxide 400 Mg Tab 400 Mg PO Q12HR Catapres (Clonidine) 0.1 Mg Tab 0.1 Mg PO Q6H PRN Reported Ambien (Zolpidem Tartrate) 10 Mg Tab 10 Mg PO HS PRN Review of Systems Except as stated in HPI: all other systems reviewed are Neg Physical Exam Narrative GENERAL: 51yo M not in distress. SKIN: Focused skin assessment warm/dry. HEAD: Atraumatic. Normocephalic. EYES: Pupils equal and round. No scleral icterus. No injection or drainage. ENT: No nasal bleeding or discharge. Mucous membranes pink and moist. NECK: Trachea midline. No JVD. CARDIOVASCULAR: Regular rate and rhythm. No murmur appreciated. RESPIRATORY: No accessory muscle use. Clear to auscultation. Breath sounds equal bilaterally. GASTROINTESTINAL: Abdomen soft, very mild epigastric ttp. nondistended. No rebound tenderness or guarding. MUSCULOSKELETAL: No obvious deformities. No clubbing. No cyanosis. No edema. NEUROLOGICAL: Awake and alert. No obvious cranial nerve deficits. Motor grossly within normal limits. Normal speech. No tongue fasciculation. PSYCHIATRIC: Appropriate mood and affect; insight and judgment normal. Data Data Last Documented VS Vital Signs Date Time Temp Pulse Resp B/P (MAP) Pulse Ox O2 Delivery O2 Flow Rate FiO2 07/29/17 20:09 84 16 117/66 (83) 100 07/29/17 19:29 Room Air 07/29/17 17:46 98.0 Orders Orders Complete Blood Count With Diff (07/29/17 17:46) Comprehensive Metabolic Panel (07/29/17 17:46) Lipase (07/29/17 17:46) Iv Access Insert/Monitor (07/29/17 17:46) Ecg Monitoring (07/29/17 17:46) Oximetry (07/29/17 17:46) Ondansetron Inj (Zofran Inj) (07/29/17 18:00) Sodium Chlor 0.9% 1000 Ml Inj (Ns 1000 M (07/29/17 17:46) Sodium Chloride 0.9% Flush (Ns Flush) (07/29/17 18:00) Electrocardiogram (07/29/17 17:46) Alcohol (Ethanol) (07/29/17 17:46) Lorazepam Inj (Ativan Inj) (07/29/17 18:00) Thiamine Inj (Thiamine Inj) (07/29/17 18:00) Ed Poc Ultrasound (07/29/17 ) Ondansetron Odt (Zofran Odt) (07/29/17 18:15) Thiamine (Vit B1) (Vitamin B1) (07/29/17 18:15) Ketorolac Inj (Toradol Inj) (07/29/17 18:15) Magnesium (Mg) (07/29/17 18:09) Ed Discharge Order (07/29/17 19:55) Labs Laboratory Tests Test 07/29/17 18:09 White Blood Count 6.5 TH/MM3 Red Blood Count 5.26 MIL/MM3 Hemoglobin 15.8 GM/DL Hematocrit 48.5 % Mean Corpuscular Volume 92.2 FL Mean Corpuscular Hemoglobin 30.1 PG Mean Corpuscular Hemoglobin Concent 32.7 % Red Cell Distribution Width 16.8 % Platelet Count 223 TH/MM3 Mean Platelet Volume 7.6 FL Neutrophils (%) (Auto) 58.1 % Lymphocytes (%) (Auto) 33.9 % Monocytes (%) (Auto) 4.8 % Eosinophils (%) (Auto) 0.9 % Basophils (%) (Auto) 2.3 % Neutrophils # (Auto) 3.8 TH/MM3 Lymphocytes # (Auto) 2.2 TH/MM3 Monocytes # (Auto) 0.3 TH/MM3 Eosinophils # (Auto) 0.1 TH/MM3 Basophils # (Auto) 0.1 TH/MM3 CBC Comment DIFF FINAL Differential Comment Blood Urea Nitrogen 7 MG/DL Creatinine 0.72 MG/DL Random Glucose 122 MG/DL Total Protein 8.2 GM/DL Albumin 4.0 GM/DL Calcium Level 8.7 MG/DL Magnesium Level 1.9 MG/DL Alkaline Phosphatase 103 U/L Aspartate Amino Transf (AST/SGOT) 223 U/L Alanine Aminotransferase (ALT/SGPT) 108 U/L Total Bilirubin 1.1 MG/DL Sodium Level 141 MEQ/L Potassium Level 3.7 MEQ/L Chloride Level 104 MEQ/L Carbon Dioxide Level 28.3 MEQ/L Anion Gap 9 MEQ/L Estimat Glomerular Filtration Rate 115 ML/MIN Lipase 194 U/L Ethyl Alcohol Level 275 MG/DL [facility] Medical Decision Making Medical Screen Exam Complete: Yes Emergency Medical Condition: Yes Interpretation(s) EKG: NSR 87bpm. Normal axis. No ST segment elevation or depression. Differential Diagnosis Alcohol abuse vs. alcoholic gastritis vs. pancreatitis Narrative Course 51yo with hepatitis and chronic alcohol abuse here because they did not have room in [facility]. Pt states he has nausea and abdominal pain but abdominal exam is benign and pt tolerating PO here. Labs reviewed, no leukocytosis. Elevated LFTs but it is always elevated. Lipase normal. Blood alcohol 275. Pt given thiamine, zofran and toradol. Pt is asking if we can call [facility] to see if he can go there. Pt's HR and BP is normal and does not have resting tremors and not in alcohol withdrawal. Return precautions given. Diagnosis Primary Impression: Alcohol abuse Patient Instructions: General Instructions Departure Forms: Tests/Procedures Additional Instructions: Please follow up with your primary care physician in 2-3 days. Return to the ED if symptoms worsen. Med/Other Pt SpecificInfo: Prescription(s) given Scripts Thiamine (Vitamin B-1) 100 Mg Tab 100 MG PO DAILY for Nutritional Supplement, #10 TAB 0 Refills Prov: Kimberly Forte 07/29/17 Disposition: 01 DISCHARGE HOME Condition: Stable ForteKimberly loredo Jul 29, 2017 18:15
[2017-07-29 18:26] LABS: CHLORIDE 104 MEQ/L (98-107); POTASSIUM 3.7 MEQ/L (3.5-5.1); SODIUM (NA) 141 MEQ/L (136-145)
[2017-07-29 18:30] LABS: ANION GAP 9 MEQ/L (5-15); BICARBONATE 28.3 MEQ/L (21.0-32.0); BLOOD UREA NITROGEN 7 MG/DL (7-18); MAGNESIUM 1.9 MG/DL (1.5-2.5)
[2017-07-29 18:33] LABS: ALT (GPT) 108 U/L (12-78); AST (GOT) 223 U/L (15-37); GLOMERULAR FILTRATION RATE 115 ML/MIN (>89)
[2017-07-29 18:34] LABS: TOTAL BILIRUBIN ADULT 1.1 MG/DL (0.2-1.0)
[2017-07-29 18:36] LABS: ALKALINE PHOSPHATASE 103 U/L (45-117)
[2017-07-29 19:22] LABS: ALCOHOL 275 MG/DL (0-5)
[2017-07-29 19:29] VITALS: BP 134/81; PULSE 89; RESP 16; O2SAT 100
[2017-07-29] MEDS ORDERED: VITA100T54 PO (19:54)
[2017-07-29 20:09] VITALS: BP 117/66
--- NOTE | 2017-07-30 09:47 | EKG ---
Date Performed: 07/29/2017 Time Performed: 17:59:20 PTAGE: 51 years EKG: Sinus rhythm NORMAL ECG PREVIOUS TRACING : 07/16/2017 20.50 DOCTOR: Lakhwinder Roldan Interpretating Date/Time 07/30/2017 09:46:32
== END 2017-07-29 20:13 | disposition home or self-care (01) ==
LOC: PHED 17:33
DX: F10.10 Alcohol abuse, uncomplicated (principal); I10 Essential (primary) hypertension; F17.200 Nicotine dependence, unspecified, uncomplicated; Y90.8 Blood alcohol level of 240 mg/100 ml or more; Z79.899 Other long term (current) drug therapy
CPT/HCPCS: 80053; 80307; 83690; 83735; 85025; 93005; 96372; 99284; J1885

== ENCOUNTER 2017-07-31 11:55 | Inpatient (IN) | payer OTHER ==
[~2017-07-31] VITALS: Ht 198.1 cm; Wt 83.1 kg
[2017-07-31 11:57] VITALS: BP 162/105; PULSE 114; RESP 20; TEMP 98.3; O2SAT 99
[2017-07-31] MEDS ORDERED: LORazepam 2 MG/ML VIAL IV PUSH ONE ×2 (12:00→13:45)
[2017-07-31] MEDS ORDERED: THIAMINE INJ 100 MG in SODIUM CHLORIDE 0.9% INJ 100 ML IV ONE (12:00)
[2017-07-31] MEDS ORDERED: SODIUM CHLOR 0.9% 1000 ML INJ 1,000 ML IV ONE (12:00)
--- NOTE | 2017-07-31 12:07 | PD ---
HPI Chief Complaint: Seizure Time Seen by Provider: 11:58 Travel History International Travel<30 days: No Contact w/Intl Traveler<30days: No Traveled to known affect area: No History of Present Illness HPI This 51-year-old male is brought by evac. They report that he had a seizure at home. He says he has never had a seizure before. He has a chronic alcoholic. He had also been on pain medication and has not says he has not had his pain medicine for a few days. He says he has not had any alcohol for a couple of days. Paramedics reported that he was slightly confused at home but now he does not appear to be confused. He says he is having some headache. He says he has been vomiting at home. He does have a history of pancreatitis. He also has a history of chronic back pain and has been on pain medication until a couple of days ago. He is complaining of headache. He lives with his mother at home. She has come to the emergency department and describes a tonic-clonic seizure. She concurs that he has never had a seizure before [facility] Past Medical History Hx Anticoagulant Therapy: No Arthritis: Yes (RA) Asthma: No Autoimmune Disease: No Blood Disorders: Yes (HEPATITIS B AND C NO TREATMENT) Anxiety: Yes Depression: No Heart Rhythm Problems: No Cancer: No Cardiovascular Problems: Yes (HTN) High Cholesterol: No Chemotherapy: No Chest Pain: Yes Congestive Heart Failure: No Cirrhosis: Yes COPD: Yes Cerebrovascular Accident: No Diabetes: No Diminished Hearing: No Endocrine: No Gastrointestinal Disorders: Yes (PANCREATITIS) GERD: Yes Genitourinary: No Headaches: Yes Hepatitis: Yes (B & C) Hiatal Hernia: No Heparin Induced Thrombocytopen: No Herniated Disk: Yes Hypertension: Yes Immune Disorder: No Implanted Vascular Access Dvce: Yes Insomnia: Yes Kidney Stones: No Musculoskeletal: Yes (CHRONIC BACK PAIN) Neurologic: Yes Psychiatric: Yes Reproductive: No Respiratory: Yes (COPD / TB) Integumentary: Yes (HX IV DRUG USE) Immunizations Current: Yes Migraines: Yes Pancreatitis: Yes Pneumonia: Yes Radiation Therapy: No Renal Failure: No Seizures: No Sickle Cell Disease: No Sleep Apnea: No Thyroid Disease: No Ulcer: Yes Influenza Vaccination: Yes PNEUMOCCOCAL Vaccine (Year): 2 ?: Not Past Surgical History Abdominal Surgery: Yes (LIVER BIOPSY) AICD: No Arteriovenous Shunt: No Body Medical Devices: STEEL PLATE IN RIGHT ANKLE Cardiac Surgery: No Ear Surgery: No Endocrine Surgery: Yes (LIVER BIOPSY) Eye Surgery: No Genitourinary Surgery: No Gynecologic Surgery: No Hysterectomy: No Insulin Pump: No Joint Replacement: No Neurologic Surgery: No Oral Surgery: No Pacemaker: No Thoracic Surgery: Yes (CHEST TUBE- R/O TB 2009) Tonsillectomy: Yes Other Surgery: Yes (RIGHT ANKLE PLATE/SCREWS) Social History Alcohol Use: Yes (1/5 VODKA DAILY) Tobacco Use: Yes (1/2 PPD) Substance Use: Yes (benzos, cocaine) Allergies-Medications (Allergen,Severity, Reaction): Coded Allergies: prednisone (Unverified Allergy, Severe, Rash, 07/31/17) Reported Meds & Prescriptions Reported Meds & Active Scripts Active Protonix (Pantoprazole Sodium) 20 Mg Tab 20 Mg PO BID Carafate (Sucralfate) 1 Gm Tab 1 Gm PO QID On empty stomach Vitamin B-1 (Thiamine HCl) 100 Mg Tab 100 Mg PO DAILY Catapres (Clonidine) 0.1 Mg Tab 0.1 Mg PO Q6H PRN Review of Systems General / Constitutional: No: Fever, Chills Eyes: No: Diploplia HENT: Positive: Headaches, No: Sore Throat Cardiovascular: No: Chest Pain or Discomfort, Palpitations Respiratory: No: Cough Gastrointestinal: Positive: Nausea, Vomiting Genitourinary: No: Frequency Musculoskeletal: No: Myalgias Skin: No Rash Neurologic: Positive: Seizures, No: Weakness Endocrine: No: Heat Intolerance, Cold Intolerance Hematologic/Lymphatic: No: Easy Bruising Physical Exam Narrative GENERAL: Well-developed male. He is quite tremulous SKIN: Focused skin assessment warm/dry. HEAD: Atraumatic. Normocephalic. EYES: Pupils equal and round. No scleral icterus. No injection or drainage. ENT: No nasal bleeding or discharge. Mucous membranes pink and moist. NECK: Trachea midline. No JVD. CARDIOVASCULAR: Regular rate and rhythm. No murmur appreciated. RESPIRATORY: No accessory muscle use. Clear to auscultation. Breath sounds equal bilaterally. GASTROINTESTINAL: Abdomen soft, non-tender, nondistended. Hepatic and splenic margins not palpable. MUSCULOSKELETAL: No obvious deformities. No clubbing. No cyanosis. No edema. NEUROLOGICAL: Awake and alert. No obvious cranial nerve deficits. Motor grossly within normal limits. Normal speech. Marked tremulousness PSYCHIATRIC:; insight and judgment limited Data Data Last Documented VS Vital Signs Date Time Temp Pulse Resp B/P (MAP) Pulse Ox O2 Delivery O2 Flow Rate FiO2 07/31/17 12:42 100 18 147/104 (118) 98 Room Air 07/31/17 11:57 98.3 Orders Orders Electrocardiogram (07/31/17 12:00) Complete Blood Count With Diff (07/31/17 12:00) Comprehensive Metabolic Panel (07/31/17 12:00) Prothrombin Time / Inr (Pt) (07/31/17 12:00) Act Partial Throm Time (Ptt) (07/31/17 12:00) Urinalysis - C+S If Indicated (07/31/17 12:00) Magnesium (Mg) (07/31/17 12:00) Ct Brain W/O Iv Contrast(Rout) (07/31/17 12:00) Drug Screen, Random Urine (07/31/17 12:00) Alcohol (Ethanol) (07/31/17 12:00) Sodium Chlor 0.9% 1000 Ml Inj (Ns 1000 M (07/31/17 12:00) Thiamine Inj (Thiamine Inj) (07/31/17 12:00) Lorazepam Inj (Ativan Inj) (07/31/17 12:00) Lipase (07/31/17 12:03) Magnesium Sulfate 1 Gm Premix (Magnesium (07/31/17 13:15) Lorazepam Inj (Ativan Inj) (07/31/17 13:45) Pantoprazole Inj (Protonix Inj) (07/31/17 13:45) Labs Laboratory Tests Test 07/31/17 12:30 White Blood Count 6.8 TH/MM3 Red Blood Count 5.09 MIL/MM3 Hemoglobin 15.4 GM/DL Hematocrit 46.7 % Mean Corpuscular Volume 91.9 FL Mean Corpuscular Hemoglobin 30.2 PG Mean Corpuscular Hemoglobin Concent 32.8 % Red Cell Distribution Width 16.2 % Platelet Count 158 TH/MM3 Mean Platelet Volume 7.8 FL Neutrophils (%) (Auto) 82.7 % Lymphocytes (%) (Auto) 11.2 % Monocytes (%) (Auto) 4.4 % Eosinophils (%) (Auto) 0.6 % Basophils (%) (Auto) 1.1 % Neutrophils # (Auto) 5.6 TH/MM3 Lymphocytes # (Auto) 0.8 TH/MM3 Monocytes # (Auto) 0.3 TH/MM3 Eosinophils # (Auto) 0.0 TH/MM3 Basophils # (Auto) 0.1 TH/MM3 CBC Comment AUTO DIFF Differential Comment AUTO DIFF CONFIRMED Prothrombin Time 11.8 SEC Prothromb Time International Ratio 1.1 RATIO Activated Partial Thromboplast Time 22.6 SEC Blood Urea Nitrogen 6 MG/DL Creatinine 0.92 MG/DL Random Glucose 128 MG/DL Total Protein 8.3 GM/DL Albumin 4.1 GM/DL Calcium Level 8.5 MG/DL Magnesium Level 1.3 MG/DL Alkaline Phosphatase 114 U/L Aspartate Amino Transf (AST/SGOT) 380 U/L Alanine Aminotransferase (ALT/SGPT) 140 U/L Total Bilirubin 1.8 MG/DL Sodium Level 135 MEQ/L Potassium Level 3.8 MEQ/L Chloride Level 99 MEQ/L Carbon Dioxide Level 25.2 MEQ/L Anion Gap 11 MEQ/L Estimat Glomerular Filtration Rate 87 ML/MIN Lipase 175 U/L Ethyl Alcohol Level LESS THAN 3 MG/DL [facility]DM Medical Decision Making Medical Screen Exam Complete: Yes Emergency Medical Condition: Yes Medical Record Reviewed: Yes Differential Diagnosis Differential includes DTs, alcohol withdrawal seizure, subdural hematoma Narrative Course Magnesium is low at 1.3. Given supplemental magnesium. He's been given Ativan. After 2 mg of Ativan he remains quite tremulous and this will be repeated. She will also be given Protonix. He lives with his mother who is quite frail. He says he has been trying to get in to [facility] but they've not been able to take him. Diagnosis Primary Impression: Alcohol abuse Admitting Information Admitting Physician Requests: Lambert Oh MD Jul 31, 2017 12:07
[2017-07-31 12:35] LABS: AUTOMATED NEUTROPHIL # 5.6 TH/MM3 (1.8-7.7); BASOPHIL # 0.1 TH/MM3 (0-0.2); BASOPHIL % 1.1 % (0.0-2.0); EOSINOPHIL % 0.6 % (0.0-4.0); HEMATOCRIT 46.7 % (39.0-51.0); LYMPH % 11.2 % (9.0-44.0); LYMPHOCYTE # 0.8 TH/MM3 (1.0-4.8); MEAN CELL VOLUME 91.9 FL (80.0-100.0); MEAN CORPUSCULAR HEMOGLOBIN 30.2 PG (27.0-34.0); MEAN CORPUSCULAR HGB CONC 32.8 % (32.0-36.0); MONO % 4.4 % (0.0-8.0); NEUT % 82.7 % (16.0-70.0); PLATELET COUNT 158 TH/MM3 (150-450); RED BLOOD COUNT 5.09 MIL/MM3 (4.50-5.90); RED CELL DISTRIBUTION WIDTH 16.2 % (11.6-17.2); WHITE BLOOD COUNT 6.8 TH/MM3 (4.0-11.0)
[2017-07-31 12:40] LABS: HEMO FLAGS AUTO DIFF
[2017-07-31 12:42] VITALS: BP 147/104; PULSE 100; RESP 18; O2SAT 98
[2017-07-31 12:44] LABS: CHLORIDE 99 MEQ/L (98-107); POTASSIUM 3.8 MEQ/L (3.5-5.1); SODIUM (NA) 135 MEQ/L (136-145)
[2017-07-31 12:48] LABS: ANION GAP 11 MEQ/L (5-15); BICARBONATE 25.2 MEQ/L (21.0-32.0)
[2017-07-31 12:49] LABS: APTT (PATIENT) 22.6 SEC (24.3-30.1); BLOOD UREA NITROGEN 6 MG/DL (7-18); INTERNATIONAL NORMALIZED RATIO 1.1 RATIO; MAGNESIUM 1.3 MG/DL (1.5-2.5); PROTHROMBIN TIME - PATIENT 11.8 SEC (9.8-11.6)
[2017-07-31 12:51] LABS: ALT (GPT) 140 U/L (12-78); AST (GOT) 380 U/L (15-37)
[2017-07-31 12:52] LABS: GLOMERULAR FILTRATION RATE 87 ML/MIN (>89)
[2017-07-31 12:53] LABS: TOTAL BILIRUBIN ADULT 1.8 MG/DL (0.2-1.0)
[2017-07-31 12:54] LABS: ALKALINE PHOSPHATASE 114 U/L (45-117)
[2017-07-31 12:57] LABS: ALCOHOL LESS THAN 3 MG/DL (0-5)
[2017-07-31 13:20] LABS: SCAN/DIFF AUTO DIFF CONFIRMED
[2017-07-31] MEDS: MAGNESIUM SULFATE 1 GM PREMIX 100 ML IV SCH ×2 (13:26→14:26)
[2017-07-31] MEDS ORDERED: PANTOPRAZOLE SODIUM 40 MG VIAL IV PUSH ONE (13:45)
[2017-07-31] MEDS: SODIUM CHLOR 0.9% 1000 ML INJ 1,000 ML IV SCH (13:51)
--- NOTE | 2017-07-31 13:55 | RADRPT ---
EXAM DATE/TIME: 07/31/2017 12:51 [facility] COMPARISON: CT BRAIN W/O CONTRAST, July 16, 2017, 22:01. INDICATIONS : Fell and hit head. Possible seizure. Dural hematoma. RADIATION DOSE: 61.78 CTDIvol (mGy) MEDICAL HISTORY : Chronic obstructive pulmonary disease. Pancreatitis. Hepatitis B.Hepatitis C. Hypertension. SURGICAL HISTORY : None. ENCOUNTER: Initial ACUITY: 1 day PAIN SCALE: 10/10 LOCATION: cranial TECHNIQUE: Multiple contiguous axial images were obtained of the head. Using automated exposure control and adj ustment of the mA and/or kV according to patient size, radiation dose was kept as low as reasonably a chievable to obtain optimal diagnostic quality images. DICOM format image data is available electro nically for review and comparison. FINDINGS: CEREBRUM: The ventricles are normal. No evidence of midline shift, mass lesion, hemorrhage or acute infarction . No extra-axial fluid collections are seen. POSTERIOR FOSSA: The cerebellum and brainstem are intact. The 4th ventricle is midline. The cerebellopontine angle i s unremarkable. EXTRACRANIAL: The visualized portion of the orbits is intact. SKULL: The calvaria is intact. No evidence of skull fracture. CONCLUSION: Stable noncontrast head CT. No acute intracranial abnormality is present. Wesly Puentes MD on July 31, 2017 at 13:52 Board Certified Radiologist. This report was verified electronically.
[2017-07-31] MEDS ORDERED: LORazepam 2 MG TAB PO PRN (14:00)
[2017-07-31] MEDS ORDERED: FLUMAZENIL 0.5 MG/5 ML VIAL IV PUSH PRN (14:00)
[2017-07-31] MEDS ORDERED: LORazepam 1 MG TAB PO PRN (14:00)
[2017-07-31] MEDS ORDERED: LORazepam 2 MG/ML VIAL IV PUSH PRN ×2 (14:00)
[2017-07-31 14:11] VITALS: BP 140/98; PULSE 96; RESP 18; O2SAT 98
[2017-07-31 14:11] LABS: GLUCOSE,URINE NEG (NEG); KETONE, URINE NEG (NEG); NITRITE,URINE NEG (NEG); PH, URINE 6.5 (5.0-8.5)
[2017-07-31 14:13] LABS: BLOOD, URINE TRACE (NEG)
[2017-07-31 14:20] LABS: METHOD OF COLLECTION CLEAN CATCH; URINE COLOR YELLOW (YELLW/STRAW)
[2017-07-31 14:21] LABS: COMMENT (UR) CULT NOT INDICATED; CULTURE IF INDICATED CULT NOT INDICATED; RBC, URINE 0-3 /hpf (0-3); SQUAMOUS EPITHELIAL CELL URINE 0-5 /hpf (0-5)
[2017-07-31] MEDS ORDERED: MS C15TA7 PO (16:56)
--- NOTE | 2017-07-31 17:11 | HHI.HP ---
[facility] Service [facility] Primary Care Physician Maribell Chang MD Admission Diagnosis ALCOHOL WITHDRAWL SEIZURE Diagnoses: Chief Complaint: Passing out Travel History International Travel<30 Days: No Contact w/Intl Traveler <30 Da: No Traveled to Known Affected Are: No History of Present Illness 51-year-old white male being admitted for loss of consciousness possibly secondary to seizures secondary to alcohol withdrawal. Patient was in his usual state of health until earlier today when he was walking down the hallway at his home and suddenly fell to the floor. He reports having some palpitations just immediately proceeding the event but denies any chest pain or shortness of breath proceeding during or after the event. When he came to he says he recognized that he was in his bedroom. Denies any tongue biting or incontinence that was noted after the fact. Patient states that his mother told him that he was "shaking all over" while he was not fully responsive. It is unclear how long the patient experienced altered mental status. Patient states that he thinks this might of been due to alcohol withdrawal as his last drink was 2 days ago. He normally drinks a fifth a day and says he's been doing this for years. He says within the last year he did have a brief moment of abstinence for about a month before he started drinking again after being upset about particular social stressor. Patient states that he does want to try to quit drinking and tried to do at this time. Patient says that he does go to pain management for chronic low back pain. States that he last used illicit drugs 5-7 years ago. Does admit to having hepatitis B. Review of Systems Except as stated in HPI: all other systems reviewed are Neg Past Family Social History Past Medical History Hepatitis B and C Cirrhotic liver Tuberculosis COPD Allergies: Coded Allergies: prednisone (Unverified Allergy, Severe, Rash, 07/31/17) Family History Hypertension Social History Smokes 8-10 cigarettes a day, has been smoking for many years Charted history of benzodiazepine and cocaine use in the past. Physical Exam Vital Signs Vital Signs Date Time Temp Pulse Resp B/P (MAP) Pulse Ox O2 Delivery O2 Flow Rate FiO2 07/31/17 15:17 11/9/17 14:11 96 18 140/98 (112) 98 Room Air 07/31/17 12:42 100 18 147/104 (118) 98 Room Air 07/31/17 11:57 98.3 114 20 162/105 (124) 99 Physical Exam VS: Afebrile GENERAL: Lying in bed, easily awoken, well-nourished white male, no acute distress SKIN: Warm and dry. EYES: Pupils equal and round. No scleral icterus. No injection or drainage. ENT: No nasal bleeding or discharge. Mucous membranes pink and moist. CARDIOVASCULAR: Regular rate and rhythm. no murmurs RESPIRATORY: No accessory muscle use. Clear to auscultation. Breath sounds equal bilaterally. GASTROINTESTINAL: Abdomen soft mild diffuse tenderness palpation, no rebound Extremities: No clubbing, cyanosis, or edema. No obvious deformities. MUSCULOSKELETAL: Extremities without clubbing, cyanosis, or edema. No obvious deformities. grossly intact ROM with 5/5 strength in upper and lower extremities proximally NEUROLOGICAL: Awake and alert. No obvious cranial nerve deficits. No facial droop nor slurred speech noted. Has slight tremors, no mckenzie asterixis appreciated PSYCHIATRIC: Appropriate mood and affect; insight and judgment normal. Laboratory Laboratory Tests Test 07/31/17 12:30 07/31/17 14:00 White Blood Count 6.8 Red Blood Count 5.09 Hemoglobin 15.4 Hematocrit 46.7 Mean Corpuscular Volume 91.9 Mean Corpuscular Hemoglobin 30.2 Mean Corpuscular Hemoglobin Concent 32.8 Red Cell Distribution Width 16.2 Platelet Count 158 Mean Platelet Volume 7.8 Neutrophils (%) (Auto) 82.7 Lymphocytes (%) (Auto) 11.2 Monocytes (%) (Auto) 4.4 Eosinophils (%) (Auto) 0.6 Basophils (%) (Auto) 1.1 Neutrophils # (Auto) 5.6 Lymphocytes # (Auto) 0.8 Monocytes # (Auto) 0.3 Eosinophils # (Auto) 0.0 Basophils # (Auto) 0.1 CBC Comment AUTO DIFF Differential Comment AUTO DIFF CONFIRMED Prothrombin Time 11.8 Prothromb Time International Ratio 1.1 Activated Partial Thromboplast Time 22.6 Blood Urea Nitrogen 6 Creatinine 0.92 Random Glucose 128 Total Protein 8.3 Albumin 4.1 Calcium Level 8.5 Magnesium Level 1.3 Alkaline Phosphatase 114 Aspartate Amino Transf (AST/SGOT) 380 Alanine Aminotransferase (ALT/SGPT) 140 Total Bilirubin 1.8 Sodium Level 135 Potassium Level 3.8 Chloride Level 99 Carbon Dioxide Level 25.2 Anion Gap 11 Estimat Glomerular Filtration Rate 87 Lipase 175 Ethyl Alcohol Level LESS THAN 3 Urine Collection Type CLEAN CATCH Urine Color YELLOW Urine Turbidity CLEAR Urine pH 6.5 Urine Specific Bevier 1.012 Urine Protein TRACE Urine Glucose (UA) NEG Urine Ketones NEG Urine Occult Blood TRACE Urine Nitrite NEG Urine Bilirubin NEG Urine Leukocyte Esterase TRACE Urine RBC 0-3 Urine WBC 6-8 Urine Squamous Epithelial Cells 0-5 Urine Amorphous Sediment FEW Microscopic Urinalysis Comment CULT NOT INDICATED Urine Collection Time 1400 Urine Opiates Screen POS Urine Barbiturates Screen NEG Urine Amphetamines Screen NEG Urine Benzodiazepines Screen POS Urine Cocaine Screen NEG Urine Cannabinoids Screen NEG Result Diagram: 07/31/17 1230 07/31/17 1230 Imaging Last Impressions Head CT 07/31/17 1200 Signed Impressions: Service Date/Time: July 12:51 - CONCLUSION: Stable noncontrast head CT. No acute intracranial abnormality is present. MD Hardy Waite VTE Risk Assessment Caprini VTE Risk Assessment: No/Low Risk (score <= 1) Caprini Risk Assessment Model Point Value = 1 Point Value = 2 Point Value = 3 Point Value = 5 Age 41-60 Minor surgery BMI > 25 kg/m2 Swollen legs Varicose veins or History of unexplained or recurrent spontaneous Oral contraceptives or hormone replacement Sepsis (< 1 month) Serious lung disease, including pneumonia (< 1 month) Abnormal pulmonary function Acute myocardial infarction Congestive heart failure (< 1 month) History of inflammatory bowel disease Medical patient at bed rest Age 61-74 Arthroscopic surgery Major open surgery (> 45 min) Laparoscopic surgery (> 45 min) Malignancy Confined to bed (> 72 hours) Immobilizing plaster cast Central venous access Age >= 75 History of VTE Family history of VTE Factor V Leiden Prothrombin [id number] Lupus anticoagulant Anticardiolipin antibodies Elevated serum homocysteine Heparin-induced thrombocytopenia Other congenital or acquired thrombophilia Stroke (< 1 month) Elective arthroplasty Hip, pelvis, or leg fracture Acute spinal cord injury (< 1 month) Prophylaxis Regimen Total Risk Factor Score Risk Level Prophylaxis Regimen 0-1 Low Early ambulation 2 Moderate Order ONE of the following: *Sequential Compression Device (SCD) *Heparin 5000 units SQ BID 3-4 Higher Order ONE of the following medications: *Heparin 5000 units SQ TID *Enoxaparin/Lovenox 40 mg SQ daily (WT < 150 kg, CrCl > 30 mL/min) *Enoxaparin/Lovenox 30 mg SQ daily (WT < 150 kg, CrCl > 10-29 mL/min) *Enoxaparin/Lovenox 30 mg SQ BID (WT < 150 kg, CrCl > 30 mL/min) AND/OR *Sequential Compression Device (SCD) 5 or more Highest Order ONE of the following medications: *Heparin 5000 units SQ TID (Preferred with Epidurals) *Enoxaparin/Lovenox 40 mg SQ daily (WT < 150 kg, CrCl > 30 mL/min) *Enoxaparin/Lovenox 30 mg SQ daily (WT < 150 kg, CrCl > 10-29 mL/min) *Enoxaparin/Lovenox 30 mg SQ BID (WT < 150 kg, CrCl > 30 mL/min) AND *Sequential Compression Device (SCD) Assessment and Plan Assessment and Plan Loss of consciousness - Syncope versus seizure possibly secondary to alcoholic withdrawal - CT head negative - Cardiac telemetry, trend troponin - BMP unremarkable but did have low magnesium, replaced in ER, repeat in a.m. - Fall precautions - EKG strips have been independently reviewed by me and show no acute ST segment changes that are concerning for ischemia or infarction - D/w neurology, dosing w/ keppra x1. Needs MRI brain w/w/o contrast and portable EEG - high risk until proven not Alcohol dependence - [facility] protocol - We'll start Librium taper as liver function tolerates - CMP in a.m. - Continue home Protonix - Continue thiamine infusion elevated LFTs - likely ETOH superimposed on hep C and hep B hypomagnesemia - Likely secondary to alcohol use, replace and monitor Chronic back pain - We'll verify home narcotic medications with pharmacy and continue those as appropriate Physician Certification 2 Midnight Certification Type: Admission for Inpatient Services Order for Inpatient Services The services are ordered in accordance with Medicare regulations or non- Medicare payer requirements, as applicable. In the case of services not specified as inpatient-only, they are appropriately provided as inpatient services in accordance with the 2-midnight benchmark. Estimated LOS (days): 2 2 days is the estimated time the patient will need to remain in the hospital, assuming treatment plan goals are met and no additional complications. Post-Hospital Plan: Home Taye Sanford MD Jul 31, 2017 17:11
[2017-07-31] MEDS ORDERED: cloNIDine HCL 0.1 MG TAB PO PRN (17:15)
[2017-07-31] MEDS ORDERED: OXYC-396 PO (17:48)
[2017-07-31 18:00] VITALS: BP_SYST 153; BP_SYST 189; BP_SYST 201; BP_DIAS 103; BP_DIAS 116; BP_DIAS 96; PULSE 101; PULSE 128; RESP 14; RESP 16; TEMP 96.1; TEMP 99.9; O2SAT 100
[2017-07-31] MEDS ORDERED: levETIRAcetam INJ 500 MG in SODIUM CHLORIDE 0.9% INJ 100 ML IV ONE (18:00)
[2017-07-31] MEDS ORDERED: GADODIAMIDE PF 287 MG/ML 20 ML VIAL (for RAD MRI) IVCONTRAST ONE (19:21)
[2017-07-31] MEDS: MAGNESIUM OXIDE 400 MG TAB PO SCH (19:56)
[2017-07-31] MEDS: PANTOPRAZOLE SOD 20 MG DELAYED RELEASE TAB PO SCH (19:56)
[2017-07-31] MEDS: LORazepam 2 MG/ML VIAL IV PUSH PRN ×2 (19:56→22:13)
[2017-07-31] MEDS: SUCRALFATE 1 GM TAB PO SCH ×2 (19:56→20:24)
[2017-07-31 20:00] VITALS: BP 147/107; PULSE 93; RESP 20; TEMP 97.1; O2SAT 99
--- NOTE | 2017-07-31 20:04 | RADRPT ---
EXAM DATE/TIME: 07/31/2017 19:30 [place] COMPARISON: No previous studies available for comparison. INDICATIONS : Seizures. Patient fell today. CONTRAST: 18 cc Omniscan (gadodiamide) IV MEDICAL HISTORY : Hypertension. Hepatitis B. Hepatitis C. Cirrhosis. SURGICAL HISTORY : Ankle surgery. ENCOUNTER: Initial ACUITY: 1 day PAIN SCORE: 0/10 LOCATION: Head TECHNIQUE: Multiplanar, multisequence MRI of the brain was performed both prior to and following the administrat ion of paramagnetic contrast. FINDINGS: CEREBRUM: The ventricles are normal for age. No evidence of midline shift, mass lesion, hemorrhage or acute in farction. No extraaxial fluid collections are seen. The pituitary gland and suprasellar cistern are normal in configuration. WHITE MATTER: No significant signal abnormalities are seen in the white matter. POSTERIOR FOSSA: The cerebellum and brainstem are intact. The 4th ventricle is midline. The cerebellopontine angle is unremarkable. The cerebellar tonsils are normal in position. DIFFUSION IMAGING: No focal areas of restricted diffusion are seen. No evidence of acute infarction. EXTRACRANIAL: The visualized portions of the orbits and paranasal sinuses are unremarkable. POST-CONTRAST: No abnormal areas of parenchymal or dural enhancement. No evidence of blood-brain barrier breakdown. CONCLUSION: Normal examination. Zeyad Yoon Jr., MD on July 31, 2017 at 20:00 Board Certified Radiologist. This report was verified electronically.
[2017-07-31] MEDS: MORPHINE SULFATE 15 MG CONTROLLED RELEASE TAB PO SCH (20:26)
[2017-08-01] VITALS: BP 138/82; PULSE 92; RESP 20; TEMP 96.7; O2SAT 94
[2017-08-01] MEDS: LORazepam 2 MG/ML VIAL IV PUSH PRN ×4 (01:14→11:58)
[2017-08-01] MEDS: SODIUM CHLOR 0.9% 1000 ML INJ 1,000 ML IV SCH ×2 (02:30→12:49)
[2017-08-01 04:00] VITALS: BP 158/92; PULSE 80; RESP 20; TEMP 96.5; O2SAT 97
[2017-08-01 08:00] VITALS: BP 142/100; PULSE 78; RESP 17; TEMP 97.8; O2SAT 98
[2017-08-01 08:12] LABS: CHLORIDE 105 MEQ/L (98-107); POTASSIUM 3.6 MEQ/L (3.5-5.1); SODIUM (NA) 138 MEQ/L (136-145)
[2017-08-01 08:27] LABS: ALKALINE PHOSPHATASE 79 U/L (45-117); ALT (GPT) 90 U/L (12-78); ANION GAP 5 MEQ/L (5-15); AST (GOT) 241 U/L (15-37); BICARBONATE 27.7 MEQ/L (21.0-32.0); BLOOD UREA NITROGEN 7 MG/DL (7-18); GLOMERULAR FILTRATION RATE 148 ML/MIN (>89); TOTAL BILIRUBIN ADULT 2.2 MG/DL (0.2-1.0)
[2017-08-01] MEDS ORDERED: THIAMINE INJ 100 MG in SODIUM CHLORIDE 0.9% INJ 100 ML IV SCH (09:00)
[2017-08-01] MEDS: PANTOPRAZOLE SOD 20 MG DELAYED RELEASE TAB PO SCH (09:44)
[2017-08-01] MEDS: SUCRALFATE 1 GM TAB PO SCH ×2 (09:44→13:38)
[2017-08-01] MEDS: MORPHINE SULFATE 15 MG CONTROLLED RELEASE TAB PO SCH (09:44)
[2017-08-01] MEDS: MAGNESIUM OXIDE 400 MG TAB PO SCH (09:45)
[2017-08-01 10:44] VITALS: RESP 20
[2017-08-01] MEDS ORDERED: CHLO10CA5 PO (14:07)
--- NOTE | 2017-08-01 14:28 | MG ---
cc: TAMIKA PUGH M.D. Lab No: [id number] Date: 08/01/2017 : 1965 Sex: M TECHNIQUE This is a 17-channel EEG. DESCRIPTION The background rhythm reveals mild slowing in the theta range at 6 Hz. There is superimposed beta activity at 15 Hz, probably medication effect. Later in the tracing there is a normal alpha rhythm. Muscle artifact is identified. There are no epileptiform features. There are no lateralizing signs. Photic stimulation was done in a stepwise fashion with a fairly symmetric driving response. INTERPRETATION Normal EEG. There is beta activity, probably related to medication effect. No epileptic features are identified. MD ANNETTE Corona/CRISTA /1:59 PM /2:21 PM
--- NOTE | 2017-08-01 18:25 | EKG ---
Date Performed: 07/31/2017 Time Performed: 12:16:32 PTAGE: 51 years EKG: SINUS TACHYCARDIA ABNORMAL RHYTHM ECG PREVIOUS TRACING : 07/29/2017 17.59 DOCTOR: Bev Montalvo Interpretating Date/Time 08/01/2017 18:17:58
--- NOTE | 2017-08-02 00:21 | HHI.DS ---
Discharge Summary Admission Date Jul 31, 2017 at 13:54 Discharge Date: Aug 01, 2017 Admitting Diagnosis ALCOHOL WITHDRAWL SEIZURE (1) Alcohol abuse with alcohol-induced mood disorder ICD Code: F10.14 - Alcohol abuse with alcohol-induced mood disorder Status: Acute (2) Alcohol withdrawal ICD Code: F10.239 - Alcohol dependence with withdrawal, unspecified Status: Acute Procedures no invasive procedures. Brief History - From Admission 51-year-old white male being admitted for loss of consciousness possibly secondary to seizures secondary to alcohol withdrawal. Patient was in his usual state of health until earlier today when he was walking down the hallway at his home and suddenly fell to the floor. He reports having some palpitations just immediately proceeding the event but denies any chest pain or shortness of breath proceeding during or after the event. When he came to he says he recognized that he was in his bedroom. Denies any tongue biting or incontinence that was noted after the fact. Patient states that his mother told him that he was "shaking all over" while he was not fully responsive. It is unclear how long the patient experienced altered mental status. Patient states that he thinks this might of been due to alcohol withdrawal as his last drink was 2 days ago. He normally drinks a fifth a day and says he's been doing this for years. He says within the last year he did have a brief moment of abstinence for about a month before he started drinking again after being upset about particular social stressor. Patient states that he does want to try to quit drinking and tried to do at this time. Patient says that he does go to pain management for chronic low back pain. States that he last used illicit drugs 5-7 years ago. Does admit to having hepatitis B. CBC/BMP: 07/31/17 1230 08/01/17 0700 Significant Findings Laboratory Tests Test 07/31/17 12:30 07/31/17 14:00 08/01/17 07:00 Neutrophils (%) (Auto) 82.7 % (16.0-70.0) Lymphocytes # (Auto) 0.8 TH/MM3 (1.0-4.8) Prothrombin Time 11.8 SEC (9.8-11.6) Activated Partial Thromboplast Time 22.6 SEC (24.3-30.1) Blood Urea Nitrogen 6 MG/DL (7-18) Random Glucose 128 MG/DL (74-106) Total Protein 8.3 GM/DL (6.4-8.2) Magnesium Level 1.3 MG/DL (1.5-2.5) Aspartate Amino Transf (AST/SGOT) 380 U/L (15-37) 241 U/L (15-37) Alanine Aminotransferase (ALT/SGPT) 140 U/L (12-78) 90 U/L (12-78) Total Bilirubin 1.8 MG/DL (0.2-1.0) 2.2 MG/DL (0.2-1.0) Sodium Level 135 MEQ/L (136-145) Estimat Glomerular Filtration Rate 87 ML/MIN (>89) Urine Leukocyte Esterase TRACE (NEG) Urine WBC 6-8 /hpf (0-5) Urine Opiates Screen POS (NEG) Urine Benzodiazepines Screen POS (NEG) Creatinine 0.58 MG/DL (0.60-1.30) Albumin 3.1 GM/DL (3.4-5.0) Calcium Level 7.9 MG/DL (8.5-10.1) Imaging Last Impressions Head CT 07/31/17 1200 Signed Impressions: Service Date/Time: July 12:51 - CONCLUSION: Stable noncontrast head CT. No acute intracranial abnormality is present. Wesly Puentes MD Brain MRI 07/31/17 0000 Signed Impressions: Service Date/Time: July 19:30 - CONCLUSION: Normal examination. Zeyad Yoon Jr., MD Pt update on day of discharge Patient says he is feeling well. Feels like going home with his mother. He says he is seeking disability for chronic pancreatitis, as well as tremors. He says he will throw away all alcohol, stop drinking. Hospital Course Patient was treated for alcohol withdrawal with [facility] protocol. CT head negative for acute process. MRI negative for acute process. EEG negative for seizure activity. Patient was started on Librium for alcohol withdrawal. For problem-based summary from most recent progress note, please see below. //Loss of consciousness - Syncope versus seizure possibly secondary to alcoholic withdrawal - CT head negative - Cardiac telemetry, trend troponin - BMP unremarkable but did have low magnesium, replaced in ER, repeat in a.m. - Fall precautions - EKG strips have been independently reviewed by me and show no acute ST segment changes that are concerning for ischemia or infarction - D/w neurology, dosing w/ keppra x1. Needs MRI brain w/w/o contrast and portable EEG - high risk until proven not Alcohol dependence - [facility] protocol - We'll start Librium taper as liver function tolerates - CMP in a.m. - Continue home Protonix - Continue thiamine infusion elevated LFTs - likely ETOH superimposed on hep C and hep B hypomagnesemia - Likely secondary to alcohol use, replace and monitor Chronic back pain -Patient can continue on home narcotic medications. Pt Condition on Discharge: Good Discharge Disposition: Discharge Home Discharge Time: > 30 minutes Discharge Instructions DIET: Follow Instructions for: As Tolerated, No Restrictions Activities you can perform: Regular-No Restrictions, See Additionl Instruction Activities to Avoid: Driving Other Activity Instructions: No driving until cleared by neurologist. Follow up Referrals: Neurology - 1 Week PCP Follow-up - 1 Week with Maribell Chang MD New Medications: Chlordiazepoxide HCl (Chlordiazepoxide HCl) 10 Mg Capsule 1 CAP PO DIRECTED for Alcohol Detox, #18 TAB Take THREE Times daily for 3 Days, then TWICE daily for 3 days, then ONCE a day for 3 Days. Continued Medications: Clonidine (Catapres) 0.1 Mg Tab 0.1 MG PO Q6H PRN for SBP> OR = 180, DBP> OR = 100, #30 TAB Morphine ER (Ms Contin) 15 Mg Tab 15 MG PO BID for Pain Management, TAB 0 Refills Oxycodone (Oxycodone) 20 Mg Tab 20 MG PO Q8H PRN for PAIN, TAB 0 Refills Pantoprazole (Protonix) 20 Mg Tab 20 MG PO BID for Reflux, #30 TAB 0 Refills Sucralfate (Carafate) 1 Gm Tab 1 GM PO QID for Ulcer Prevention, #120 TAB 0 Refills On empty stomach Thiamine (Vitamin B-1) 100 Mg Tab 100 MG PO DAILY for Nutritional Supplement, #30 TAB 0 Refills Silva,Ryan D MD Aug 02, 2017 00:21
== END 2017-08-01 15:32 | disposition home or self-care (01) | DRG 896 ==
LOC: PHED 11:55 → PHEDA 13:50 → OBSVTOIN 13:54 → PH3A 15:20
PROVIDERS: ADMIT Hospitalist; ATTEND Hospitalist
DX: F10.239 Alcohol dependence with withdrawal, unspecified (principal); K85.90 Acute pancreatitis without necrosis or infection, unspecified; F14.90 Cocaine use, unspecified, uncomplicated; B19.10 Unspecified viral hepatitis B without hepatic coma; K74.60 Unspecified cirrhosis of liver; F10.24 Alcohol dependence with alcohol-induced mood disorder; E83.42 Hypomagnesemia; G40.89 Other seizures; G89.29 Other chronic pain; M54.5 Low back pain; B19.20 Unspecified viral hepatitis C without hepatic coma; J44.9 Chronic obstructive pulmonary disease, unspecified; I10 Essential (primary) hypertension; Z72.0 Tobacco use; K21.9 Gastro-esophageal reflux disease without esophagitis; M06.9 Rheumatoid arthritis, unspecified; F41.9 Anxiety disorder, unspecified; G47.00 Insomnia, unspecified; G43.909 Migraine, unspecified, not intractable, without status migrainosus; Z87.11 Personal history of peptic ulcer disease; Z87.01 Personal history of pneumonia (recurrent)
CPT/HCPCS: 70450; 70553; 80053; 80307; 81001; 83690; 83735; 85025; 85610; 85730; 93005; 95819; 96365; 96368; 96375; A9579; C9113; J1953; J2060; J3411; J3475; J7030

== ENCOUNTER 2017-08-09 18:28 | Emergency (ER) | payer OTHER ==
[~2017-08-09] VITALS: Ht 198.1 cm; Wt 90.0 kg
[~2017-08-09 18:28] MED LIST changes: -AMBI10TA PO; +CHLO10CA5 PO; -MAGN400T3 PO; +MS C15TA7 PO; +OXYC-396 PO; -THERTAB15 PO
[2017-08-09 18:43] VITALS: BP 128/95; PULSE 99; RESP 19; TEMP 98.3; O2SAT 96
[2017-08-09 20:16] LABS: AUTOMATED NEUTROPHIL # 1.7 TH/MM3 (1.8-7.7); BASOPHIL % 0.8 % (0.0-2.0); EOSINOPHIL % 1.1 % (0.0-4.0); HEMATOCRIT 46.4 % (39.0-51.0); HEMO FLAGS DIFF FINAL; LYMPH % 41.8 % (9.0-44.0); LYMPHOCYTE # 1.4 TH/MM3 (1.0-4.8); MEAN CELL VOLUME 94.9 FL (80.0-100.0); MEAN CORPUSCULAR HEMOGLOBIN 31.3 PG (27.0-34.0); MONO % 6.3 % (0.0-8.0); PLATELET COUNT 203 TH/MM3 (150-450); RED BLOOD COUNT 4.89 MIL/MM3 (4.50-5.90); RED CELL DISTRIBUTION WIDTH 17.5 % (11.6-17.2); WHITE BLOOD COUNT 3.4 TH/MM3 (4.0-11.0)
[2017-08-09 20:37] LABS: ALT (GPT) 64 U/L (12-78); ANION GAP 9 MEQ/L (5-15); AST (GOT) 171 U/L (15-37); BICARBONATE 29.5 MEQ/L (21.0-32.0); BLOOD UREA NITROGEN 12 MG/DL (7-18); CHLORIDE 107 MEQ/L (98-107); GLOMERULAR FILTRATION RATE 117 ML/MIN (>89); POTASSIUM 3.5 MEQ/L (3.5-5.1); SODIUM (NA) 145 MEQ/L (136-145)
[2017-08-09 20:40] LABS: ALKALINE PHOSPHATASE 123 U/L (45-117); TOTAL BILIRUBIN ADULT 0.5 MG/DL (0.2-1.0)
[2017-08-09 20:42] LABS: ALCOHOL 278 MG/DL (0-5)
--- NOTE | 2017-08-09 21:28 | PD ---
HPI Chief Complaint: Psychiatric Symptoms Time Seen by Provider: 19:29 Travel History International Travel<30 days: No Contact w/Intl Traveler<30days: No Traveled to known affect area: No History of Present Illness HPI This is a 52-year-old male who has a history of chronic alcoholism who presents to the emergency department under a Rose act. He was reportedly fighting with the family member and police responded to the disturbance. The patient reported that he wanted help with his drinking so he was transported to the hospital. In route he told the police that he wanted to kill himself and that he didn't want to live anymore. The patient reports that he does not want to kill himself, is not suicidal and is not struggling with depression. He "does not want to go to [facility]". He just wants help with his drinking. He is been to [facility] in the past but he gets frustrated because when he tried to go back there often full. PFSH Past Medical History Hx Anticoagulant Therapy: No Arthritis: Yes (RA) Asthma: No Autoimmune Disease: No Blood Disorders: Yes (HEPATITIS B AND C NO TREATMENT) Anxiety: Yes Depression: No Heart Rhythm Problems: No Cancer: No Cardiovascular Problems: Yes (HTN) High Cholesterol: No Chemotherapy: No Chest Pain: Yes Congestive Heart Failure: No Cirrhosis: Yes COPD: Yes Cerebrovascular Accident: No Diabetes: No Diminished Hearing: No Endocrine: No Gastrointestinal Disorders: Yes (PANCREATITIS) GERD: Yes Genitourinary: No Headaches: Yes Hepatitis: Yes (B & C) Hiatal Hernia: No Heparin Induced Thrombocytopen: No Herniated Disk: Yes Hypertension: Yes Immune Disorder: No Implanted Vascular Access Dvce: Yes Insomnia: Yes Kidney Stones: No Musculoskeletal: Yes (CHRONIC BACK PAIN) Neurologic: Yes Psychiatric: Yes Reproductive: No Respiratory: Yes (COPD / TB) Integumentary: Yes (HX IV DRUG USE) Immunizations Current: Yes Migraines: Yes Pancreatitis: Yes Pneumonia: Yes Radiation Therapy: No Renal Failure: No Seizures: No Sickle Cell Disease: No Sleep Apnea: No Thyroid Disease: No Ulcer: Yes PNEUMOCCOCAL Vaccine (Year): 2 Past Surgical History Abdominal Surgery: Yes (LIVER BIOPSY) AICD: No Arteriovenous Shunt: No Body Medical Devices: STEEL PLATE IN RIGHT ANKLE Cardiac Surgery: No Ear Surgery: No Endocrine Surgery: Yes (LIVER BIOPSY) Eye Surgery: No Genitourinary Surgery: No Gynecologic Surgery: No Hysterectomy: No Insulin Pump: No Joint Replacement: No Neurologic Surgery: No Oral Surgery: No Pacemaker: No Thoracic Surgery: Yes (CHEST TUBE- R/O TB 2009) Tonsillectomy: Yes Other Surgery: Yes (RIGHT ANKLE PLATE/SCREWS) Social History Alcohol Use: Yes (1/5 VODKA DAILY) Tobacco Use: Yes (1/2 PPD) Substance Use: Yes (benzos, cocaine) Allergies-Medications (Allergen,Severity, Reaction): Coded Allergies: prednisone (Unverified Allergy, Severe, Rash, 07/31/17) Reported Meds & Prescriptions Reported Meds & Active Scripts Active Chlordiazepoxide HCl 10 Mg Capsule 1 Cap PO DIRECTED Take THREE Times daily for 3 Days, then TWICE daily for 3 days, then ONCE a day for 3 Days. Protonix (Pantoprazole Sodium) 20 Mg Tab 20 Mg PO BID Carafate (Sucralfate) 1 Gm Tab 1 Gm PO QID On empty stomach Vitamin B-1 (Thiamine HCl) 100 Mg Tab 100 Mg PO DAILY Catapres (Clonidine) 0.1 Mg Tab 0.1 Mg PO Q6H PRN Reported Oxycodone (Oxycodone HCl) 20 Mg Tab 20 Mg PO Q8H PRN Ms Contin (Morphine Sulfate) 15 Mg Tab 15 Mg PO BID Review of Systems Except as stated in HPI: all other systems reviewed are Neg Physical Exam Narrative GENERAL: Tremulous, awake and alert, no acute distress SKIN: Focused skin assessment warm and dry. HEAD: Atraumatic. Normocephalic. EYES: Pupils equal and round. No injection or drainage. ENT: Moist mucous membranes NECK: Trachea midline. CARDIOVASCULAR: Regular rate and rhythm. No murmur appreciated. RESPIRATORY: Clear to auscultation. Breath sounds equal bilaterally. GASTROINTESTINAL: Abdomen soft, non-tender, nondistended. MUSCULOSKELETAL: No obvious deformities. NEUROLOGICAL: Awake and alert. No obvious cranial nerve deficits. Moving all extremities. PSYCHIATRIC: Appropriate mood and affect; insight and judgment normal. Able to understand questions and articulate reasonable answers. Adamantly denies suicidal or homicidal ideation. Data Data Last Documented VS Vital Signs Date Time Temp Pulse Resp B/P (MAP) Pulse Ox O2 Delivery O2 Flow Rate FiO2 08/09/17 18:43 98.3 99 19 128/95 (106) 96 Room Air Orders Orders Complete Blood Count With Diff (08/09/17 19:29) Comprehensive Metabolic Panel (08/09/17 19:29) Alcohol (Ethanol) (08/09/17 19:29) Drug Screen, Random Urine (08/09/17 19:29) Lorazepam Inj (Ativan Inj) (08/09/17 21:30) Labs Laboratory Tests Test 08/09/17 19:47 White Blood Count 3.4 TH/MM3 Red Blood Count 4.89 MIL/MM3 Hemoglobin 15.3 GM/DL Hematocrit 46.4 % Mean Corpuscular Volume 94.9 FL Mean Corpuscular Hemoglobin 31.3 PG Mean Corpuscular Hemoglobin Concent 33.0 % Red Cell Distribution Width 17.5 % Platelet Count 203 TH/MM3 Mean Platelet Volume 7.0 FL Neutrophils (%) (Auto) 50.0 % Lymphocytes (%) (Auto) 41.8 % Monocytes (%) (Auto) 6.3 % Eosinophils (%) (Auto) 1.1 % Basophils (%) (Auto) 0.8 % Neutrophils # (Auto) 1.7 TH/MM3 Lymphocytes # (Auto) 1.4 TH/MM3 Monocytes # (Auto) 0.2 TH/MM3 Eosinophils # (Auto) 0.0 TH/MM3 Basophils # (Auto) 0.0 TH/MM3 CBC Comment DIFF FINAL Differential Comment Blood Urea Nitrogen 12 MG/DL Creatinine 0.71 MG/DL Random Glucose 108 MG/DL Total Protein 7.9 GM/DL Albumin 3.8 GM/DL Calcium Level 8.5 MG/DL Alkaline Phosphatase 123 U/L Aspartate Amino Transf (AST/SGOT) 171 U/L Alanine Aminotransferase (ALT/SGPT) 64 U/L Total Bilirubin 0.5 MG/DL Sodium Level 145 MEQ/L Potassium Level 3.5 MEQ/L Chloride Level 107 MEQ/L Carbon Dioxide Level 29.5 MEQ/L Anion Gap 9 MEQ/L Estimat Glomerular Filtration Rate 117 ML/MIN Ethyl Alcohol Level 278 MG/DL [facility] Medical Decision Making Medical Screen Exam Complete: Yes Emergency Medical Condition: Yes Interpretation(s) Mild leukopenia Electrolytes are reassuring Alcohol level is 278 Differential Diagnosis Acute alcohol intoxication, alcohol-induced mood disorder, adjustment reaction, depression Narrative Course This is a 52-year-old male who is well-known to our emergency department for chronic alcoholism. He was brought in under a Rose act having reportedly made suicidal statements to the police. Currently he denies any depression or thoughts of killing himself. He says that he wants help with his alcohol abuse. He was admitted in the setting of alcohol-induced mood disorder from July 17 The patient is understand questions and articulate his reasoning. He doesn't want to be seen by psychiatry you just wants help for his substance abuse. I don't think we can keep this patient against his will and I don't think he meets Rose act criteria as his presentation is alcohol related. Patient's Rose act was lifted. We did call [facility] but unfortunately they have no beds available. He was given information regarding [facility]. He'll be discharged home. Diagnosis Primary Impression: Alcohol intoxication Qualified Codes: F10.920 - Alcohol use, unspecified with intoxication, uncomplicated Patient Instructions: General Instructions Additional Instructions: If you at all have thoughts of hurting yourself or others return to the emergency department immediately. Follow up with [facility] in regards to psychiatric or substance related issues at: [address] [place] [id number] Med/Other Pt SpecificInfo: No Change to Meds Disposition: 01 DISCHARGE HOME Condition: Stable Adenike Henderson MD Aug 09, 2017 21:28
[2017-08-09] MEDS ORDERED: LORazepam 2 MG/ML VIAL IM ONE (21:30)
[2017-08-09] MEDS ORDERED: LORazepam 1 MG TAB PO PRN (23:15)
[2017-08-09] MEDS ORDERED: FLUMAZENIL 0.5 MG/5 ML VIAL IV PUSH PRN (23:15)
[2017-08-09] MEDS ORDERED: LORazepam 2 MG TAB PO PRN (23:15)
[2017-08-09] MEDS ORDERED: LORazepam 2 MG/ML VIAL IV PUSH PRN ×4 (23:15)
[2017-08-10 00:51] VITALS: BP 135/90; PULSE 97; RESP 18; O2SAT 97
[2017-08-10 05:13] VITALS: BP 169/92; PULSE 102; RESP 16; O2SAT 98
[2017-08-10] MEDS ORDERED: ACETAMINOPHEN 500 MG CPLT PO ONE (05:15)
[2017-08-10] MEDS ORDERED: ONDANSETRON ODT 4 MG TAB PO ONE (05:15)
== END 2017-08-10 08:22 | disposition home or self-care (01) ==
LOC: NEPD 18:28
DX: F10.920 Alcohol use, unspecified with intoxication, uncomplicated (principal); I10 Essential (primary) hypertension; F17.200 Nicotine dependence, unspecified, uncomplicated; Z79.899 Other long term (current) drug therapy; Z87.39 Personal history of other diseases of the musculoskeletal system and connective tissue; Z86.2 Personal history of diseases of the blood and blood-forming organs and certain disorders involving the immune mechanism; Z86.59 Personal history of other mental and behavioral disorders; Z86.79 Personal history of other diseases of the circulatory system; Z87.19 Personal history of other diseases of the digestive system; Z87.09 Personal history of other diseases of the respiratory system; Z86.19 Personal history of other infectious and parasitic diseases; Z86.69 Personal history of other diseases of the nervous system and sense organs
CPT/HCPCS: 80053; 80307; 85025; 96372; 99284; J2060

== ENCOUNTER 2017-08-14 11:14 | Emergency (ER) | payer OTHER ==
[~2017-08-14] VITALS: Ht 198.1 cm; Wt 90.0 kg
[2017-08-14 11:17] VITALS: BP 178/116; PULSE 102; RESP 18; TEMP 98.9; O2SAT 100
[2017-08-14] MEDS ORDERED: SODIUM CHLOR 0.9% 1000 ML INJ 1,000 ML IV SCH (11:29)
[2017-08-14] MEDS ORDERED: LORazepam 2 MG/ML VIAL IV PUSH ONE (11:30)
[2017-08-14] MEDS ORDERED: SODIUM CHLORIDE 0.9% FLUSH 10 ML FLUSH IV FLUSH PRN (11:30)
[2017-08-14] MEDS ORDERED: ONDANSETRON HCL 4 MG/2 ML VIAL IVP ONE (11:30)
[2017-08-14 11:41] VITALS: O2SAT 99
--- NOTE | 2017-08-14 11:52 | PD ---
HPI Chief Complaint: Flank/Kidney Pain Time Seen by Provider: 11:29 Travel History International Travel<30 days: No Contact w/Intl Traveler<30days: No Traveled to known affect area: No History of Present Illness HPI Patient is a 52-year-old male presenting to the emergency room for evaluation of nausea, vomiting, abdominal pain and bilateral flank pain. Patient states it started 2 days ago. He reports chronic alcoholism and drinks a half a gallon of vodka daily. He is unable to drink any alcohol today due to the nausea and vomiting. He states he feels shaky. He is unable to eat anything as well. Nausea and vomiting started 2 hours prior to arrival. Eyes any fever , chills, chest pain, shortness of breath, headache. PFSH Past Medical History Hx Anticoagulant Therapy: No Arthritis: Yes (RA) Asthma: No Autoimmune Disease: No Anxiety: Yes Depression: No Heart Rhythm Problems: No Cancer: No High Cholesterol: No Chemotherapy: No Chest Pain: Yes Congestive Heart Failure: No Cirrhosis: Yes COPD: Yes Cerebrovascular Accident: No Diabetes: No Diminished Hearing: No Endocrine: No Gastrointestinal Disorders: Yes (PANCREATITIS) GERD: Yes Genitourinary: No Headaches: Yes Hepatitis: Yes (B & C) Hiatal Hernia: No Heparin Induced Thrombocytopen: No Herniated Disk: Yes Hypertension: Yes Immune Disorder: No Implanted Vascular Access Dvce: Yes Insomnia: Yes Kidney Stones: No Musculoskeletal: Yes (CHRONIC BACK PAIN) Reproductive: No Integumentary: Yes (HX IV DRUG USE) Immunizations Current: Yes Migraines: Yes Pancreatitis: Yes Pneumonia: Yes Radiation Therapy: No Renal Failure: No Seizures: No Sickle Cell Disease: No Sleep Apnea: No Thyroid Disease: No Ulcer: Yes PNEUMOCCOCAL Vaccine (Year): 2 Past Surgical History Abdominal Surgery: Yes (LIVER BIOPSY) AICD: No Arteriovenous Shunt: No Body Medical Devices: STEEL PLATE IN RIGHT ANKLE Cardiac Surgery: No Ear Surgery: No Eye Surgery: No Genitourinary Surgery: No Gynecologic Surgery: No Hysterectomy: No Insulin Pump: No Joint Replacement: No Neurologic Surgery: No Oral Surgery: No Pacemaker: No Tonsillectomy: Yes Other Surgery: Yes (RIGHT ANKLE PLATE/SCREWS) Social History Alcohol Use: Yes (1/5 VODKA DAILY) Tobacco Use: Yes (1/2 PPD) Substance Use: Yes (benzos, cocaine) Allergies-Medications (Allergen,Severity, Reaction): Coded Allergies: prednisone (Unverified Allergy, Severe, Rash, 08/14/17) Reported Meds & Prescriptions Reported Meds & Active Scripts Active Zofran Odt (Ondansetron Odt) 4 Mg Tab 4 Mg SL Q6HR PRN Keflex (Cephalexin) 500 Mg Cap 500 Mg PO Q12H 7 Days Protonix (Pantoprazole Sodium) 20 Mg Tab 20 Mg PO BID Carafate (Sucralfate) 1 Gm Tab 1 Gm PO QID On empty stomach Vitamin B-1 (Thiamine HCl) 100 Mg Tab 100 Mg PO DAILY Reported Oxycodone (Oxycodone HCl) 20 Mg Tab 20 Mg PO Q8H PRN Ms Contin (Morphine Sulfate) 15 Mg Tab 15 Mg PO BID Review of Systems Except as stated in HPI: all other systems reviewed are Neg General / Constitutional: No: Fever, Chills HENT: No: Headaches Cardiovascular: Positive: Tachycardia, No: Chest Pain or Discomfort, Dyspnea on exertion, Edema Respiratory: No: Shortness of Breath Gastrointestinal: Positive: Nausea, Vomiting, Abdominal Pain Genitourinary: Positive: Flank Pain, No: Dysuria Neurologic: Positive: Tremor, No: Weakness, Dizziness, Syncope Physical Exam Narrative GENERAL: Well-developed, well-nourished, alert male. Resting in no acute distress. SKIN: Warm and dry. HEAD: Atraumatic. Normocephalic. EYES: Pupils equal and round. No scleral icterus. No injection or drainage. ENT: No nasal bleeding or discharge. Mucous membranes pink and moist. NECK: Trachea midline. No JVD. CARDIOVASCULAR: Mildly tachycardic. RESPIRATORY: No accessory muscle use. Clear to auscultation. Breath sounds equal bilaterally. GASTROINTESTINAL: Abdomen soft, mildly tender to palpation in right upper quadrant, nondistended. Hepatic and splenic margins not palpable. No rebound, no guarding. MUSCULOSKELETAL: Extremities without clubbing, cyanosis, or edema. No obvious deformities. NEUROLOGICAL: Awake and alert. No obvious cranial nerve deficits. Motor grossly within normal limits. Five out of 5 muscle strength in the arms and legs. Normal speech. Tremors in upper extremities. PSYCHIATRIC: Appropriate mood and affect; insight and judgment normal. Data Data Last Documented VS Vital Signs Date Time Temp Pulse Resp B/P (MAP) Pulse Ox O2 Delivery O2 Flow Rate FiO2 08/14/17 14:35 73 13 154/105 (121) 100 Room Air 08/14/17 11:17 98.9 Orders Orders Complete Blood Count With Diff (08/14/17 11:29) Comprehensive Metabolic Panel (08/14/17 11:29) Lipase (08/14/17 11:29) Urinalysis - C+S If Indicated (08/14/17 11:29) Iv Access Insert/Monitor (08/14/17 11:29) Ecg Monitoring (08/14/17 11:29) Oximetry (08/14/17 11:29) NPO (08/14/17 11:29) Ondansetron Inj (Zofran Inj) (08/14/17 11:30) Sodium Chlor 0.9% 1000 Ml Inj (Ns 1000 M (08/14/17 11:29) Sodium Chloride 0.9% Flush (Ns Flush) (08/14/17 11:30) Electrocardiogram (08/14/17 11:29) Lorazepam Inj (Ativan Inj) (08/14/17 11:30) Alcohol (Ethanol) (08/14/17 11:34) Urine Culture (08/14/17 12:45) Ct Abd/Pel W/O Iv Contrast (08/14/17 ) Sodium Chlor 0.9% 1000 Ml Inj (Ns 1000 M (08/14/17 13:30) Ed Discharge Order (08/14/17 15:22) Chlordiazepoxide (Librium) (08/14/17 15:30) Ceftriaxone Inj (Rocephin Inj) (08/14/17 15:30) Labs Laboratory Tests Test 08/14/17 11:42 08/14/17 12:45 White Blood Count 5.5 TH/MM3 Red Blood Count 4.67 MIL/MM3 Hemoglobin 14.8 GM/DL Hematocrit 44.6 % Mean Corpuscular Volume 95.6 FL Mean Corpuscular Hemoglobin 31.8 PG Mean Corpuscular Hemoglobin Concent 33.2 % Red Cell Distribution Width 16.8 % Platelet Count 171 TH/MM3 Mean Platelet Volume 7.9 FL Neutrophils (%) (Auto) 61.0 % Lymphocytes (%) (Auto) 30.4 % Monocytes (%) (Auto) 6.6 % Eosinophils (%) (Auto) 1.4 % Basophils (%) (Auto) 0.6 % Neutrophils # (Auto) 3.4 TH/MM3 Lymphocytes # (Auto) 1.7 TH/MM3 Monocytes # (Auto) 0.4 TH/MM3 Eosinophils # (Auto) 0.1 TH/MM3 Basophils # (Auto) 0.0 TH/MM3 CBC Comment DIFF FINAL Differential Comment Blood Urea Nitrogen 6 MG/DL Creatinine 0.80 MG/DL Random Glucose 119 MG/DL Total Protein 7.8 GM/DL Albumin 3.7 GM/DL Calcium Level 9.2 MG/DL Alkaline Phosphatase 137 U/L Aspartate Amino Transf (AST/SGOT) 203 U/L Alanine Aminotransferase (ALT/SGPT) 65 U/L Total Bilirubin 0.5 MG/DL Sodium Level 138 MEQ/L Potassium Level 4.1 MEQ/L Chloride Level 103 MEQ/L Carbon Dioxide Level 29.9 MEQ/L Anion Gap 5 MEQ/L Estimat Glomerular Filtration Rate 102 ML/MIN Lipase 152 U/L Ethyl Alcohol Level LESS THAN 3 MG/DL Urine Color YELLOW Urine Turbidity HAZY Urine pH 7.0 Urine Specific [place] 1.016 Urine Protein TRACE mg/dL Urine Glucose (UA) NEG mg/dL Urine Ketones NEG mg/dL Urine Occult Blood TRACE Urine Nitrite NEG Urine Bilirubin NEG Urine Urobilinogen LESS THAN 2.0 MG/DL Urine Leukocyte Esterase LARGE Urine RBC 4 /hpf Urine WBC 20 /hpf Urine Calcium Oxalate Crystals RARE /hpf Urine Bacteria OCC /hpf Microscopic Urinalysis Comment CULTURE INDICATED MDM Medical Decision Making Medical Screen Exam Complete: Yes Emergency Medical Condition: Yes Medical Record Reviewed: Yes Interpretation(s) Vital Signs Date Time Temp Pulse Resp B/P (MAP) Pulse Ox O2 Delivery O2 Flow Rate FiO2 08/14/17 11:17 98.9 102 18 178/116 (136) 100 Room Air Differential Diagnosis Acute on chronic pancreatitis versus gastroenteritis versus alcohol withdrawal versus UTI versus kidney stone versus other Narrative Course Pt presented with c/o abdominal pain, N/V, flank pain. Labs and imaging ordered and pending. IV access established, patient placed on desk monitor. Patient was tachycardic on arrival, likely secondary to ETOH withdrawal. Ativan 1mg IV ordered along with zofran and IVF's. CBC with no acute abnormality CMP and lipase with no acute abnormalities. ETOH level is <3 Urinalysis is consistent with a UTI, due to blood and calcium a ct of the abd/ pelvis was performed to r/o calculi. CT which was read by the radiologist show a non-obstructing 3mm left renal calculus. Advanced degenerative disc. No acute findings. Patient will be given rocephin for the UTI and keflex to complete abx pending culture report. He was given a total of 2 liters of NS IV. Prior to discharge he was given a dose of librium. He was strongly advised to follow up at [facility] for rehab. He was encouraged to return to the ED for any new or worsening symptoms. Pt verbalized understanding. Pt is stable for discharge. Additionally patient has not vomited while in the ED today. Diagnosis Primary Impression: UTI (urinary tract infection) Qualified Codes: N39.0 - Urinary tract infection, site not specified; R31.9 - Hematuria, unspecified Additional Impressions: Nausea & vomiting Qualified Codes: R11.2 - Nausea with vomiting, unspecified Alcoholism Referrals: [facility] 1 week [facility] 1 day Patient Instructions: Alcohol Use Disorder (ED), Alcohol Withdrawal (ED), General Instructions, Urinary Tract Infection in Men (ED) Additional Instructions: Avoid excessive alcohol intake, avoid alcohol altogether preferably Follow-up at [facility] Follow-up at the [facility] for routine health care Return to emergency department for any new or worsening symptoms Med/Other Pt SpecificInfo: Prescription(s) given Scripts Chlordiazepoxide HCl (Chlordiazepoxide HCl) 25 Mg Capsule 1 CAP PO Q6HR Y for WITHDRAWAL, #12 Prov: Melony Romero 08/14/17 Ondansetron Odt (Zofran Odt) 4 Mg Tab 4 MG SL Q6HR Y for Nausea/Vomiting, #10 TAB 0 Refills Prov: Melony Romero 08/14/17 Cephalexin (Keflex) 500 Mg Cap 500 MG PO Q12H for Infection for 7 Days, #14 CAP 0 Refills Prov: Melony Romero 08/14/17 Disposition: 01 DISCHARGE HOME Condition: Stable Melony Romero Aug 14, 2017 11:52
[2017-08-14 12:07] LABS: AUTOMATED NEUTROPHIL # 3.4 TH/MM3 (1.8-7.7); BASOPHIL % 0.6 % (0.0-2.0); EOSINOPHIL # 0.1 TH/MM3 (0-0.4); EOSINOPHIL % 1.4 % (0.0-4.0); HEMATOCRIT 44.6 % (39.0-51.0); HEMO FLAGS DIFF FINAL; LYMPH % 30.4 % (9.0-44.0); LYMPHOCYTE # 1.7 TH/MM3 (1.0-4.8); MEAN CELL VOLUME 95.6 FL (80.0-100.0); MEAN CORPUSCULAR HEMOGLOBIN 31.8 PG (27.0-34.0); MEAN CORPUSCULAR HGB CONC 33.2 % (32.0-36.0); MONO % 6.6 % (0.0-8.0); PLATELET COUNT 171 TH/MM3 (150-450); RED BLOOD COUNT 4.67 MIL/MM3 (4.50-5.90); RED CELL DISTRIBUTION WIDTH 16.8 % (11.6-17.2); WHITE BLOOD COUNT 5.5 TH/MM3 (4.0-11.0)
[2017-08-14 12:21] LABS: ALT (GPT) 65 U/L (12-78)
[2017-08-14 12:23] LABS: ALKALINE PHOSPHATASE 137 U/L (45-117); TOTAL BILIRUBIN ADULT 0.5 MG/DL (0.2-1.0)
[2017-08-14 12:38] LABS: ANION GAP 5 MEQ/L (5-15); AST (GOT) 203 U/L (15-37); BICARBONATE 29.9 MEQ/L (21.0-32.0); BLOOD UREA NITROGEN 6 MG/DL (7-18); CHLORIDE 103 MEQ/L (98-107); GLOMERULAR FILTRATION RATE 102 ML/MIN (>89); POTASSIUM 4.1 MEQ/L (3.5-5.1); SODIUM (NA) 138 MEQ/L (136-145)
[2017-08-14 13:22] LABS: BACTERIA, URINE OCC /hpf; BLOOD, URINE TRACE (NEG); CALCIUM OXALATE CRYSTALS,URINE RARE /hpf; GLUCOSE,URINE NEG (NEG); KETONE, URINE NEG (NEG); NITRITE,URINE NEG (NEG); URINE COLOR YELLOW (YELLW/STRAW)
[2017-08-14 13:23] LABS: COMMENT (UR) CULTURE INDICATED; CULTURE IF INDICATED CULTURE INDICATED
[2017-08-14] MEDS ORDERED: SODIUM CHLOR 0.9% 1000 ML INJ 1,000 ML IV ONE (13:30)
[2017-08-14 14:35] VITALS: BP 154/105; PULSE 73; RESP 13; O2SAT 100
--- NOTE | 2017-08-14 15:02 | RADRPT ---
EXAM DATE/TIME: 08/14/2017 13:40 [place] COMPARISON: CT ABDOMEN & PELVIS W CONTRAST, April 13, 2017, 9:16. INDICATIONS : Bilateral flank pain ORAL CONTRAST: No oral contrast ingested. RADIATION DOSE: 10.76 CTDIvol (mGy) MEDICAL HISTORY : Pancreatitis. Hepatitis B. Hepatitis C. SURGICAL HISTORY : None. ENCOUNTER: Initial ACUITY: 3 days PAIN SCALE: 6/10 LOCATION: Bilateral flank TECHNIQUE: Volumetric scanning of the abdomen and pelvis was performed. Using automated exposure control and ad justment of the mA and/or kV according to patient size, radiation dose was kept as low as reasonably achievable to obtain optimal diagnostic quality images. DICOM format image data is available electro nically for review and comparison. FINDINGS: Lung bases are clear. There are no acute findings in the liver spleen, adrenals or pancreas. Nonobstr ucting 3 mm calculus upper pole left kidney. Right kidney unremarkable. No hydronephrosis. No free fluid. No bowel obstruction. No free air. Advanced degenerative disc disease in lumbar spine with levoscoliosis. CONCLUSION: 1. No acute findings. Nonobstructing 3 mm left renal calculus. Advanced degenerative disc disease in the lower lumbar spine. Du Nivees MD on August 14, 2017 at 14:58 Board Certified Radiologist. This report was verified electronically.
[2017-08-14] MEDS ORDERED: chlordiazePOXIDE 25 MG CAP PO PRN (15:30)
[2017-08-14] MEDS ORDERED: cefTRIAXone INJ 1,000 MG in SODIUM CHLORIDE 0.9% INJ 100 ML IV ONE (15:30)
[2017-08-14] MEDS ORDERED: CEPH-460 PO (15:37)
[2017-08-14] MEDS ORDERED: ZOFR4TAB3 SL (15:37)
[2017-08-14] MEDS ORDERED: CHLO25CA9 PO (15:43)
--- NOTE | 2017-08-15 13:19 | EKG ---
Date Performed: 08/14/2017 Time Performed: 12:29:32 PTAGE: 52 years EKG: Sinus rhythm Since previous tracing, no significant change noted NORMAL ECG PREVIOUS TRACING : 07/31/2017 12.16 DOCTOR: Xavi Cannon Interpretating Date/Time 08/15/2017 13:16:54
== END 2017-08-14 17:04 | disposition home or self-care (01) ==
LOC: NEPC 11:14
DX: N39.0 Urinary tract infection, site not specified (principal); R11.2 Nausea with vomiting, unspecified; F10.20 Alcohol dependence, uncomplicated; R20.0 Anesthesia of skin; M51.36 Other intervertebral disc degeneration, lumbar region; R00.0 Tachycardia, unspecified; M06.9 Rheumatoid arthritis, unspecified; I10 Essential (primary) hypertension; F17.200 Nicotine dependence, unspecified, uncomplicated
CPT/HCPCS: 74176; 80053; 80307; 81001; 83690; 85025; 87086; 93005; 96361; 96365; 96375; 99285; J0696; J2060; J2405; J7030

== ENCOUNTER 2017-08-15 22:10 | Emergency (ER) | payer SELFPAY ==
[~2017-08-15] VITALS: Ht 198.1 cm; Wt 90.0 kg
[~2017-08-15 22:10] MED LIST changes: +CEPH-460 PO; -CHLO10CA5 PO; +CHLO25CA9 PO; -CLON.1 PO; +ZOFR4TAB3 SL
[2017-08-15 22:16] VITALS: BP 170/92; PULSE 110; RESP 20; TEMP 98.5; O2SAT 99
[2017-08-15 22:22] VITALS: O2SAT 98
--- NOTE | 2017-08-15 22:24 | PD ---
HPI Chief Complaint: OD/ Ingestion Time Seen by Provider: 22:20 Travel History International Travel<30 days: No Contact w/Intl Traveler<30days: No Traveled to known affect area: No History of Present Illness HPI Patient is a 52-year-old male who presents the emergency department after Narcan reversal. The patient states that he was recently admitted for chronic back pain to another hospital and he met a friend thomas who was told him to try something injected something into his hand and that was the last thing he remembered. EMS reports they gave 2 mg of Narcan IM without effect and they started an IO access and gave 0.5 mg of Narcan intraosseously which had reversal of affect. Patient initially was not breathing and was unconscious then became combative requiring restraints. On arrival the patient is still mildly confused denies any physical complaints currently and states he's alright. PFSH Past Medical History Hx Anticoagulant Therapy: No Anemia: Yes Arthritis: Yes (RA) Asthma: No Autoimmune Disease: No Blood Disorders: Yes (HEPATITIS B AND C NO TREATMENT) Anxiety: Yes Depression: No Heart Rhythm Problems: No Cancer: No Cardiovascular Problems: Yes (HTN) High Cholesterol: No Chemotherapy: No Chest Pain: Yes Congestive Heart Failure: No Cirrhosis: Yes COPD: Yes Cerebrovascular Accident: No Diabetes: No Diminished Hearing: No Endocrine: No Gastrointestinal Disorders: Yes (PANCREATITIS) GERD: Yes Genitourinary: No Headaches: Yes Hepatitis: Yes (B & C) Hiatal Hernia: No Heparin Induced Thrombocytopen: No Herniated Disk: Yes Hypertension: Yes Immune Disorder: No Implanted Vascular Access Dvce: Yes Insomnia: Yes Kidney Stones: No Musculoskeletal: Yes (CHRONIC BACK PAIN) Neurologic: Yes Psychiatric: Yes Reproductive: No Respiratory: Yes (COPD / TB) Integumentary: Yes (HX IV DRUG USE) Immunizations Current: Yes Migraines: Yes Pancreatitis: Yes Pneumonia: Yes Radiation Therapy: No Renal Failure: No Seizures: No Sickle Cell Disease: No Sleep Apnea: No Thyroid Disease: No Ulcer: Yes Tetanus Vaccination: < 5 Years Influenza Vaccination: Yes PNEUMOCCOCAL Vaccine (Year): 2 Past Surgical History Abdominal Surgery: Yes (LIVER BIOPSY) AICD: No Arteriovenous Shunt: No Body Medical Devices: STEEL PLATE IN RIGHT ANKLE Cardiac Surgery: No Ear Surgery: No Endocrine Surgery: Yes (LIVER BIOPSY) Eye Surgery: No Genitourinary Surgery: No Gynecologic Surgery: No Hysterectomy: No Insulin Pump: No Joint Replacement: No Neurologic Surgery: No Oral Surgery: No Pacemaker: No Thoracic Surgery: Yes (CHEST TUBE- R/O TB 2009) Tonsillectomy: Yes Other Surgery: Yes (RIGHT ANKLE PLATE/SCREWS) Social History Alcohol Use: Yes (1/5 VODKA DAILY) Tobacco Use: Yes (1/2 PPD) Substance Use: Yes (benzos, cocaine, heroin ) Allergies-Medications (Allergen,Severity, Reaction): Coded Allergies: prednisone (Unverified Allergy, Severe, Rash, 08/15/17) Reported Meds & Prescriptions Reported Meds & Active Scripts Active Chlordiazepoxide HCl 25 Mg Capsule 1 Cap PO Q6HR PRN Zofran Odt (Ondansetron Odt) 4 Mg Tab 4 Mg SL Q6HR PRN Keflex (Cephalexin) 500 Mg Cap 500 Mg PO Q12H 7 Days Protonix (Pantoprazole Sodium) 20 Mg Tab 20 Mg PO BID Carafate (Sucralfate) 1 Gm Tab 1 Gm PO QID On empty stomach Vitamin B-1 (Thiamine HCl) 100 Mg Tab 100 Mg PO DAILY Reported Oxycodone (Oxycodone HCl) 20 Mg Tab 20 Mg PO Q8H PRN Ms Contin (Morphine Sulfate) 15 Mg Tab 15 Mg PO BID Review of Systems Except as stated in HPI: all other systems reviewed are Neg Physical Exam Narrative GENERAL: Well-developed well-nourished in no obvious distress SKIN: Focused skin assessment warm/dry. HEAD: Atraumatic. Normocephalic. EYES: Pupils equal and round. No scleral icterus. No injection or drainage. ENT: No nasal bleeding or discharge. Mucous membranes pink and moist. NECK: Trachea midline. No JVD. CARDIOVASCULAR: Regular rate and rhythm. No murmur appreciated. RESPIRATORY: No accessory muscle use. Clear to auscultation. Breath sounds equal bilaterally. GASTROINTESTINAL: Abdomen soft, non-tender, nondistended. Hepatic and splenic margins not palpable. MUSCULOSKELETAL: No obvious deformities. No clubbing. No cyanosis. No edema. NEUROLOGICAL: Awake and alert. Cranial nerves II through XII are grossly intact and nonfocal, 5 out of 5 strength in all 4 extremity's. PSYCHIATRIC: Appropriate mood and affect; insight and judgment normal. Data Data Last Documented VS Vital Signs Date Time Temp Pulse Resp B/P (MAP) Pulse Ox O2 Delivery O2 Flow Rate FiO2 08/15/17 22:22 98 Room Air 08/15/17 22:16 98.5 110 20 170/92 (118) Orders Orders Ecg Monitoring (08/15/17 22:20) Iv Access Insert/Monitor (08/15/17 22:20) Oximetry (08/15/17 22:20) Oxygen Administration (08/15/17 22:20) Sodium Chloride 0.9% Flush (Ns Flush) (08/15/17 22:30) Sodium Chlor 0.9% 1000 Ml Inj (Ns 1000 M (08/15/17 22:30) Ed Discharge Order (08/16/17 00:59) MDM Medical Decision Making Medical Screen Exam Complete: Yes Emergency Medical Condition: Yes Differential Diagnosis Heroine overdose, substance abuse, head injury unlikely, neck injury unlikely, Narrative Course Patient roomed in emergency department, he was transferred over into the ER stretcher placed in restraints by EMS personnel, shortly after my evaluation the patient was taken out of restraints as he is calm and cooperative. He was observed in the emergency Department for 2 hours and 45 minutes, his mother then arrived and was willing to take him home. The patient is been alert and awake and oriented throughout his ER stay, he has eaten a meal. There is no indication for emergent workup of this patient at this time, he ended from the emergency department in no distress. He was counseled on the dangers of heroin use and that he had a very serious episode today. He verbalized understanding and agreement. Recommended follow up with Theo alcazar. He is calm and cooperative and fairly pleasant. Stable for discharge. Diagnosis Primary Impression: Opiate overdose Referrals: [facility] Patient Instructions: General Instructions, Opioid Overdose (DC) Disposition: 01 DISCHARGE HOME Condition: Stable Faizan Valle MD Aug 15, 2017 22:24
[2017-08-15] MEDS ORDERED: SODIUM CHLOR 0.9% 1000 ML INJ 1,000 ML IV ONE (22:30)
[2017-08-15] MEDS ORDERED: SODIUM CHLORIDE 0.9% FLUSH 10 ML FLUSH IVF PRN (22:30)
== END 2017-08-16 01:09 | disposition home or self-care (01) ==
LOC: NEPC 22:10
DX: T40.601A Poisoning by unspecified narcotics, accidental (unintentional), initial encounter (principal); M06.9 Rheumatoid arthritis, unspecified; D64.9 Anemia, unspecified; I10 Essential (primary) hypertension; J44.9 Chronic obstructive pulmonary disease, unspecified; K74.60 Unspecified cirrhosis of liver; F41.9 Anxiety disorder, unspecified; Z87.19 Personal history of other diseases of the digestive system; Z86.19 Personal history of other infectious and parasitic diseases
CPT/HCPCS: 96360; 99284; J7030

== ENCOUNTER 2017-08-21 08:56 | Emergency (ER) | payer SELFPAY ==
[2017-08-21 08:59] VITALS: BP 164/97; PULSE 106; RESP 16; TEMP 97.8; O2SAT 100
--- NOTE | 2017-08-21 09:33 | PD ---
HPI Chief Complaint: GI Complaint Time Seen by Provider: 09:27 Travel History International Travel<30 days: No Contact w/Intl Traveler<30days: No Traveled to known affect area: No History of Present Illness HPI c/o epig pain, rad to flank bilaterally, assoc with n/v but no diarrhea or fever...pain level 8/10....patient was treated for uti one week ago (finished keflex) and now returns with aformentioned hpi complaints. pmhx: copd,htn,pancreatitis, cirrhosis from ivda/tob/etoh use. PFSH Past Medical History Hx Anticoagulant Therapy: No Anemia: Yes Arthritis: Yes (RA) Asthma: No Autoimmune Disease: No Blood Disorders: Yes (HEPATITIS B AND C NO TREATMENT) Anxiety: Yes Depression: No Heart Rhythm Problems: No Cancer: No Cardiovascular Problems: Yes (HTN) High Cholesterol: No Chemotherapy: No Chest Pain: Yes Congestive Heart Failure: No Cirrhosis: Yes COPD: Yes Cerebrovascular Accident: No Diabetes: No Diminished Hearing: No Endocrine: No Gastrointestinal Disorders: Yes (PANCREATITIS) GERD: Yes Genitourinary: No Headaches: Yes Hepatitis: Yes (B & C) Hiatal Hernia: No Heparin Induced Thrombocytopen: No Herniated Disk: Yes Hypertension: Yes Immune Disorder: No Implanted Vascular Access Dvce: Yes Insomnia: Yes Kidney Stones: No Musculoskeletal: Yes (CHRONIC BACK PAIN) Neurologic: Yes Psychiatric: Yes Reproductive: No Respiratory: Yes (COPD / TB) Integumentary: Yes (HX IV DRUG USE) Immunizations Current: Yes Migraines: Yes Pancreatitis: Yes Pneumonia: Yes Radiation Therapy: No Renal Failure: No Seizures: No Sickle Cell Disease: No Sleep Apnea: No Thyroid Disease: No Ulcer: Yes Tetanus Vaccination: < 5 Years Influenza Vaccination: Yes PNEUMOCCOCAL Vaccine (Year): 2 Past Surgical History Abdominal Surgery: Yes (LIVER BIOPSY) AICD: No Arteriovenous Shunt: No Body Medical Devices: STEEL PLATE IN RIGHT ANKLE Cardiac Surgery: No Ear Surgery: No Endocrine Surgery: Yes (LIVER BIOPSY) Eye Surgery: No Genitourinary Surgery: No Gynecologic Surgery: No Hysterectomy: No Insulin Pump: No Joint Replacement: No Neurologic Surgery: No Oral Surgery: No Pacemaker: No Thoracic Surgery: Yes (CHEST TUBE- R/O TB 2009) Tonsillectomy: Yes Other Surgery: Yes (RIGHT ANKLE PLATE/SCREWS) Social History Alcohol Use: Yes (1/5 VODKA DAILY) Tobacco Use: Yes (1/2 PPD) Substance Use: Yes (benzos, cocaine, heroin ) Allergies-Medications (Allergen,Severity, Reaction): Coded Allergies: prednisone (Verified Allergy, Severe, Rash, 08/21/17) Reported Meds & Prescriptions Reported Meds & Active Scripts Active Keflex (Cephalexin) 500 Mg Cap 500 Mg PO Q12H 7 Days Protonix (Pantoprazole Sodium) 20 Mg Tab 20 Mg PO BID Reported Oxycodone (Oxycodone HCl) 20 Mg Tab 20 Mg PO Q8H PRN Ms Contin (Morphine Sulfate) 15 Mg Tab 15 Mg PO BID Review of Systems Except as stated in HPI: all other systems reviewed are Neg General / Constitutional: No: Fever Eyes: No: Visual changes HENT: No: Headaches Cardiovascular: No: Chest Pain or Discomfort Respiratory: No: Shortness of Breath Gastrointestinal: Positive: Nausea, Vomiting, Abdominal Pain Genitourinary: Positive: Flank Pain Musculoskeletal: No: Pain Skin: No Rash Neurologic: No: Weakness Psychiatric: No: Depression Endocrine: No: Polydipsia Hematologic/Lymphatic: No: Easy Bruising Physical Exam Narrative GENERAL: SKIN: Warm and dry. HEAD: Atraumatic. Normocephalic. EYES: Pupils equal and round. No scleral icterus. No injection or drainage. ENT: No nasal bleeding or discharge. Mucous membranes pink and moist. NECK: Trachea midline. No JVD. CARDIOVASCULAR: Regular rate and rhythm. RESPIRATORY: No accessory muscle use. Clear to auscultation. Breath sounds equal bilaterally. GASTROINTESTINAL: Abdomen soft, mild epig ttpercussion, nondistended MUSCULOSKELETAL: Extremities without clubbing, cyanosis, or edema. No obvious deformities. NEUROLOGICAL: Awake and alert. No obvious cranial nerve deficits. Motor grossly within normal limits. Five out of 5 muscle strength in the arms and legs. Normal speech. PSYCHIATRIC: Appropriate mood and affect; insight and judgment normal. Data Data Last Documented VS Vital Signs Date Time Temp Pulse Resp B/P (MAP) Pulse Ox O2 Delivery O2 Flow Rate FiO2 08/21/17 10:11 16 08/21/17 09:38 98 Room Air 08/21/17 08:59 97.8 106 Orders Orders Complete Blood Count With Diff (08/21/17 09:15) Comprehensive Metabolic Panel (08/21/17 09:15) Lipase (08/21/17 09:15) Iv Access Insert/Monitor (08/21/17 09:15) Ecg Monitoring (08/21/17 09:15) Oximetry (08/21/17 09:15) NPO (08/21/17 09:15) Ondansetron Inj (Zofran Inj) (08/21/17 09:45) Sodium Chlor 0.9% 1000 Ml Inj (Ns 1000 M (08/21/17 09:45) Electrocardiogram (08/21/17 09:15) Hydromorphone Pf Inj (Dilaudid Pf Inj) (08/21/17 09:45) Ed Discharge Order (08/21/17 12:06) Labs Laboratory Tests Test 08/21/17 09:35 White Blood Count 3.3 TH/MM3 Red Blood Count 4.66 MIL/MM3 Hemoglobin 14.9 GM/DL Hematocrit 44.9 % Mean Corpuscular Volume 96.2 FL Mean Corpuscular Hemoglobin 32.0 PG Mean Corpuscular Hemoglobin Concent 33.3 % Red Cell Distribution Width 16.8 % Platelet Count 186 TH/MM3 Mean Platelet Volume 7.8 FL Neutrophils (%) (Auto) 46.9 % Lymphocytes (%) (Auto) 34.9 % Monocytes (%) (Auto) 14.3 % Eosinophils (%) (Auto) 2.5 % Basophils (%) (Auto) 1.4 % Neutrophils # (Auto) 1.6 TH/MM3 Lymphocytes # (Auto) 1.2 TH/MM3 Monocytes # (Auto) 0.5 TH/MM3 Eosinophils # (Auto) 0.1 TH/MM3 Basophils # (Auto) 0.0 TH/MM3 CBC Comment DIFF FINAL Differential Comment Blood Urea Nitrogen 7 MG/DL Creatinine 0.67 MG/DL Random Glucose 92 MG/DL Total Protein 7.8 GM/DL Albumin 3.9 GM/DL Calcium Level 9.3 MG/DL Alkaline Phosphatase 113 U/L Aspartate Amino Transf (AST/SGOT) 170 U/L Alanine Aminotransferase (ALT/SGPT) 68 U/L Total Bilirubin 0.4 MG/DL Sodium Level 141 MEQ/L Potassium Level 4.5 MEQ/L Chloride Level 105 MEQ/L Carbon Dioxide Level 30.6 MEQ/L Anion Gap 5 MEQ/L Estimat Glomerular Filtration Rate 125 ML/MIN Lipase 153 U/L [facility] Medical Decision Making Medical Screen Exam Complete: Yes Emergency Medical Condition: Yes Medical Record Reviewed: Yes Differential Diagnosis pancreatitis v electrolyte v uti Diagnosis Primary Impression: Chronic pancreatitis Qualified Codes: K86.1 - Other chronic pancreatitis Patient Instructions: General Instructions, Pancreatitis (ED) Scripts Ondansetron Odt (Zofran Odt) 4 Mg Tab 4 MG SL Q6HR Y for Nausea/Vomiting, #12 TAB 0 Refills Prov: Parker Sanchez MD 08/21/17 Tramadol (Ultram) 50 Mg Tab 50 MG PO Q4H Y for PAIN, #12 TAB 0 Refills Prov: Parker Sanchez MD 08/21/17 Disposition: DISCHARGE HOME Condition: Stable Parker Sanchez MD Aug 21, 2017 09:33
[2017-08-21 09:38] VITALS: RESP 17; O2SAT 98
[2017-08-21] MEDS ORDERED: HYDROmorphone HCL PF 1 MG/ML VIAL IVS ONE (09:45)
[2017-08-21] MEDS ORDERED: ONDANSETRON HCL 4 MG/2 ML VIAL IVP ONE (09:45)
[2017-08-21] MEDS ORDERED: SODIUM CHLOR 0.9% 1000 ML INJ 1,000 ML IV SCH (09:45)
[2017-08-21 10:11] VITALS: RESP 16
[2017-08-21 10:53] LABS: AUTOMATED NEUTROPHIL # 1.6 TH/MM3 (1.8-7.7); BASOPHIL % 1.4 % (0.0-2.0); EOSINOPHIL # 0.1 TH/MM3 (0-0.4); EOSINOPHIL % 2.5 % (0.0-4.0); HEMATOCRIT 44.9 % (39.0-51.0); HEMO FLAGS DIFF FINAL; LYMPH % 34.9 % (9.0-44.0); LYMPHOCYTE # 1.2 TH/MM3 (1.0-4.8); MEAN CELL VOLUME 96.2 FL (80.0-100.0); MEAN CORPUSCULAR HGB CONC 33.3 % (32.0-36.0); MONO % 14.3 % (0.0-8.0); NEUT % 46.9 % (16.0-70.0); PLATELET COUNT 186 TH/MM3 (150-450); RED BLOOD COUNT 4.66 MIL/MM3 (4.50-5.90); RED CELL DISTRIBUTION WIDTH 16.8 % (11.6-17.2); WHITE BLOOD COUNT 3.3 TH/MM3 (4.0-11.0)
[2017-08-21 11:17] LABS: ALT (GPT) 68 U/L (12-78); ANION GAP 5 MEQ/L (5-15); AST (GOT) 170 U/L (15-37); BICARBONATE 30.6 MEQ/L (21.0-32.0); BLOOD UREA NITROGEN 7 MG/DL (7-18); CHLORIDE 105 MEQ/L (98-107); GLOMERULAR FILTRATION RATE 125 ML/MIN (>89); POTASSIUM 4.5 MEQ/L (3.5-5.1); SODIUM (NA) 141 MEQ/L (136-145)
[2017-08-21 11:19] LABS: ALKALINE PHOSPHATASE 113 U/L (45-117); TOTAL BILIRUBIN ADULT 0.4 MG/DL (0.2-1.0)
[2017-08-21] MEDS ORDERED: TRAM50 PO (12:08)
[2017-08-21] MEDS ORDERED: ZOFR4TAB3 SL (12:08)
--- NOTE | 2017-08-22 16:43 | EKG ---
Date Performed: 08/21/2017 Time Performed: 09:32:49 PTAGE: 52 years EKG: Sinus rhythm Since previous tracing, no significant change noted NORMAL ECG PREVIOUS TRACING : 08/14/2017 12.29 DOCTOR: Ariella Ndiaye Interpretating Date/Time 08/22/2017 16:41:53
== END 2017-08-21 13:05 | disposition home or self-care (01) ==
LOC: NEPD 08:56
DX: K86.1 Other chronic pancreatitis (principal); K86.81 Exocrine pancreatic insufficiency; I10 Essential (primary) hypertension; F17.200 Nicotine dependence, unspecified, uncomplicated; Z87.09 Personal history of other diseases of the respiratory system; Z87.19 Personal history of other diseases of the digestive system; Z86.2 Personal history of diseases of the blood and blood-forming organs and certain disorders involving the immune mechanism; Z87.39 Personal history of other diseases of the musculoskeletal system and connective tissue; Z86.59 Personal history of other mental and behavioral disorders; Z86.79 Personal history of other diseases of the circulatory system; Z86.69 Personal history of other diseases of the nervous system and sense organs
CPT/HCPCS: 80053; 83690; 85025; 93005; 96361; 96374; 96375; 99285; J1170; J2405; J7030

== ENCOUNTER 2017-08-24 19:43 | Emergency (ER) | payer OTHER ==
[~2017-08-24 19:43] MED LIST changes: -CARA1TAB6 PO; -CHLO25CA9 PO; +TRAM50 PO; -VITA100T54 PO
[2017-08-24 21:32] LABS: AUTOMATED NEUTROPHIL # 2.3 TH/MM3 (1.8-7.7); BASOPHIL % 0.8 % (0.0-2.0); EOSINOPHIL # 0.1 TH/MM3 (0-0.4); HEMATOCRIT 44.6 % (39.0-51.0); HEMO FLAGS DIFF FINAL; LYMPH % 46.4 % (9.0-44.0); LYMPHOCYTE # 2.4 TH/MM3 (1.0-4.8); MEAN CELL VOLUME 96.1 FL (80.0-100.0); MEAN CORPUSCULAR HGB CONC 33.4 % (32.0-36.0); MONO % 6.5 % (0.0-8.0); NEUT % 45.3 % (16.0-70.0); PLATELET COUNT 173 TH/MM3 (150-450); RED BLOOD COUNT 4.64 MIL/MM3 (4.50-5.90); RED CELL DISTRIBUTION WIDTH 16.2 % (11.6-17.2); WHITE BLOOD COUNT 5.1 TH/MM3 (4.0-11.0)
[2017-08-24 21:45] VITALS: BP 150/95; PULSE 86; RESP 16; TEMP 97.7; O2SAT 99
[2017-08-24 21:53] LABS: ALT (GPT) 73 U/L (12-78); ANION GAP 7 MEQ/L (5-15); AST (GOT) 194 U/L (15-37); BICARBONATE 28.9 MEQ/L (21.0-32.0); BLOOD UREA NITROGEN 6 MG/DL (7-18); CHLORIDE 110 MEQ/L (98-107); GLOMERULAR FILTRATION RATE 106 ML/MIN (>89); POTASSIUM 3.8 MEQ/L (3.5-5.1); SODIUM (NA) 146 MEQ/L (136-145)
[2017-08-24 21:54] LABS: ALCOHOL 217 MG/DL (0-5)
[2017-08-24] MEDS: RESP: ALBUTEROL 2.5 MG/IPRATROPIUM 0.5 MG NEB (SCH) INH (21:54)
[2017-08-24 21:55] VITALS: O2SAT 99
[2017-08-24 22:00] LABS: ALKALINE PHOSPHATASE 109 U/L (45-117); TOTAL BILIRUBIN ADULT 0.5 MG/DL (0.2-1.0)
[2017-08-24 22:01] LABS: ACETAMINOPHEN LESS THAN 2.0 MCG/ML (10.0-30.0)
[2017-08-24] MEDS ORDERED: chlordiazePOXIDE 25 MG CAP PO ONE (22:15)
[2017-08-24] MEDS ORDERED: IBUPROFEN 800 MG TAB PO ONE (22:15)
--- NOTE | 2017-08-24 22:24 | PD ---
HPI Chief Complaint: Psychiatric Symptoms Time Seen by Provider: 21:45 Travel History International Travel<30 days: No Contact w/Intl Traveler<30days: No Traveled to known affect area: No History of Present Illness HPI Patient's 52-year-old male presenting to the emergency department under Rose act for psychiatric evaluation. Patient reports that he is stressed out, he feels as if the world was coming down on him. He reports suicidal ideations. Patient apparently had an anger issue yesterday and decided to punch a pole with both of his hands. Patient is complaining of pain in his hands that is a 5 out of 10 and aching. Patient reports a history of chronic alcoholism, he is wanting to get sober but was unable to obtain a bed at [facility]. Patient states that he is feeling shaky. He reports taking alcohol this morning but has not had any in several hours. He denies any hallucinations or homicidal ideations. PFSH Past Medical History Hx Anticoagulant Therapy: No Anemia: Yes Arthritis: Yes (RA) Asthma: No Autoimmune Disease: No Blood Disorders: Yes (HEPATITIS B AND C NO TREATMENT) Anxiety: Yes Depression: No Heart Rhythm Problems: No Cancer: No Cardiovascular Problems: Yes (HTN) High Cholesterol: No Chemotherapy: No Chest Pain: Yes Congestive Heart Failure: No Cirrhosis: Yes COPD: Yes Cerebrovascular Accident: No Diabetes: No Diminished Hearing: No Endocrine: No Gastrointestinal Disorders: Yes (PANCREATITIS) GERD: Yes Genitourinary: No Headaches: Yes Hepatitis: Yes (B & C) Hiatal Hernia: No Heparin Induced Thrombocytopen: No Herniated Disk: Yes Hypertension: Yes Immune Disorder: No Implanted Vascular Access Dvce: Yes Insomnia: Yes Kidney Stones: No Musculoskeletal: Yes (CHRONIC BACK PAIN) Neurologic: Yes Psychiatric: Yes Reproductive: No Respiratory: Yes (COPD / TB) Integumentary: Yes (HX IV DRUG USE) Immunizations Current: Yes Migraines: Yes Pancreatitis: Yes Pneumonia: Yes Radiation Therapy: No Renal Failure: No Seizures: No Sickle Cell Disease: No Sleep Apnea: No Thyroid Disease: No Ulcer: Yes PNEUMOCCOCAL Vaccine (Year): 2 Past Surgical History Abdominal Surgery: Yes (LIVER BIOPSY) AICD: No Arteriovenous Shunt: No Body Medical Devices: STEEL PLATE IN RIGHT ANKLE Cardiac Surgery: No Ear Surgery: No Endocrine Surgery: Yes (LIVER BIOPSY) Eye Surgery: No Genitourinary Surgery: No Gynecologic Surgery: No Hysterectomy: No Insulin Pump: No Joint Replacement: No Neurologic Surgery: No Oral Surgery: No Pacemaker: No Thoracic Surgery: Yes (CHEST TUBE- R/O TB 2009) Tonsillectomy: Yes Other Surgery: Yes (RIGHT ANKLE PLATE/SCREWS) Social History Alcohol Use: Yes (1/5 VODKA DAILY) Tobacco Use: Yes (1/2 PPD) Substance Use: Yes (benzos, cocaine, heroin, 08/24/17 PT DENIES ) Allergies-Medications (Allergen,Severity, Reaction): Coded Allergies: prednisone (Verified Allergy, Severe, Rash, 08/24/17) Reported Meds & Prescriptions Reported Meds & Active Scripts Active Zofran Odt (Ondansetron Odt) 4 Mg Tab 4 Mg SL Q6HR PRN Ultram (Tramadol HCl) 50 Mg Tab 50 Mg PO Q4H PRN Keflex (Cephalexin) 500 Mg Cap 500 Mg PO Q12H 7 Days Protonix (Pantoprazole Sodium) 20 Mg Tab 20 Mg PO BID Reported Oxycodone (Oxycodone HCl) 20 Mg Tab 20 Mg PO Q8H PRN Ms Contin (Morphine Sulfate) 15 Mg Tab 15 Mg PO BID Review of Systems Except as stated in HPI: all other systems reviewed are Neg Respiratory: Positive: Wheezing Musculoskeletal: Positive: Myalgias, Arthralgias Skin: Positive Change in Pigmentation Psychiatric: Positive: Depression, Suicidal Ideations, Substance Abuse Physical Exam Narrative GENERAL: Well-developed, well-nourished, alert male. Resting comfortably in no acute distress. SKIN: Warm and dry. HEAD: Atraumatic. Normocephalic. EYES: Pupils equal and round. No scleral icterus. No injection or drainage. ENT: No nasal bleeding or discharge. Mucous membranes pink and moist. NECK: Trachea midline. No JVD. CARDIOVASCULAR: Regular rate and rhythm. RESPIRATORY: No accessory muscle use. Scattered expiratory wheezing. GASTROINTESTINAL: Abdomen soft, non-tender, nondistended. Hepatic and splenic margins not palpable. MUSCULOSKELETAL: Extremities without clubbing, cyanosis, or edema. No obvious deformities. NEUROLOGICAL: Awake and alert. No obvious cranial nerve deficits. Motor grossly within normal limits. Five out of 5 muscle strength in the arms and legs. Normal speech. Slight tremor and bilateral hands. PSYCHIATRIC: Appropriate mood and affect; insight and judgment normal. Data Data Last Documented VS Vital Signs Date Time Temp Pulse Resp B/P (MAP) Pulse Ox O2 Delivery O2 Flow Rate FiO2 08/25/17 08:57 154/96 (115) 08/25/17 07:51 86 14 97 Room Air 08/24/17 21:55 21 08/24/17 21:45 97.7 Orders Orders Complete Blood Count With Diff (08/24/17 19:57) Comprehensive Metabolic Panel (08/24/17 19:57) Psych Screen (08/24/17 19:57) Alcohol (Ethanol) (08/24/17 19:57) Salicylates (Aspirin) (08/24/17 19:57) Tylenol (Acetaminophen) (08/24/17 19:57) Drug Screen, Random Urine (08/24/17 19:57) Albuterol-Ipratropium Neb (Duoneb Neb) (08/24/17 21:45) Chlordiazepoxide (Librium) (08/24/17 22:15) Ibuprofen (Motrin) (08/24/17 22:15) Hand, Complete ([id number]) (08/24/17 ) Hand, Complete ([id number]) (08/24/17 ) Alcohol Withdrawal Asmt-Ciwa ONCE (08/24/17 23:34) Flumazenil Inj (Romazicon Inj) (08/24/17 23:45) Lorazepam (Ativan) (08/24/17 23:45) Lorazepam Inj (Ativan Inj) (08/24/17 23:45) Lorazepam (Ativan) (08/24/17 23:45) Lorazepam Inj (Ativan Inj) (08/24/17 23:45) Lorazepam Inj (Ativan Inj) (08/24/17 23:45) Lorazepam Inj (Ativan Inj) (08/24/17 23:45) Diet Regular Basic (08/25/17 Breakfast) Labs Laboratory Tests Test 08/24/17 20:05 08/24/17 21:30 White Blood Count 5.1 TH/MM3 Red Blood Count 4.64 MIL/MM3 Hemoglobin 14.9 GM/DL Hematocrit 44.6 % Mean Corpuscular Volume 96.1 FL Mean Corpuscular Hemoglobin 32.0 PG Mean Corpuscular Hemoglobin Concent 33.4 % Red Cell Distribution Width 16.2 % Platelet Count 173 TH/MM3 Mean Platelet Volume 7.8 FL Neutrophils (%) (Auto) 45.3 % Lymphocytes (%) (Auto) 46.4 % Monocytes (%) (Auto) 6.5 % Eosinophils (%) (Auto) 1.0 % Basophils (%) (Auto) 0.8 % Neutrophils # (Auto) 2.3 TH/MM3 Lymphocytes # (Auto) 2.4 TH/MM3 Monocytes # (Auto) 0.3 TH/MM3 Eosinophils # (Auto) 0.1 TH/MM3 Basophils # (Auto) 0.0 TH/MM3 CBC Comment DIFF FINAL Differential Comment Blood Urea Nitrogen 6 MG/DL Creatinine 0.77 MG/DL Random Glucose 114 MG/DL Total Protein 7.7 GM/DL Albumin 3.7 GM/DL Calcium Level 8.4 MG/DL Alkaline Phosphatase 109 U/L Aspartate Amino Transf (AST/SGOT) 194 U/L Alanine Aminotransferase (ALT/SGPT) 73 U/L Total Bilirubin 0.5 MG/DL Sodium Level 146 MEQ/L Potassium Level 3.8 MEQ/L Chloride Level 110 MEQ/L Carbon Dioxide Level 28.9 MEQ/L Anion Gap 7 MEQ/L Estimat Glomerular Filtration Rate 106 ML/MIN Salicylates Level 2.3 MG/DL Acetaminophen Level LESS THAN 2.0 MCG/ML Ethyl Alcohol Level 217 MG/DL Urine Opiates Screen NEG Urine Barbiturates Screen NEG Urine Amphetamines Screen NEG Urine Benzodiazepines Screen POS Urine Cocaine Screen NEG Urine Cannabinoids Screen NEG MDM Medical Decision Making Medical Screen Exam Complete: Yes Emergency Medical Condition: Yes Interpretation(s) Vital Signs Date Time Temp Pulse Resp B/P (MAP) Pulse Ox O2 Delivery O2 Flow Rate FiO2 08/24/17 21:55 99 21 08/24/17 21:45 97.7 86 16 150/95 (113) 99 Room Air Differential Diagnosis Substance abuse versus mood disorder versus alcoholism versus malingering versus metabolic abnormality versus other Narrative Course Patient was seen and evaluated in the ambulance [facility]. He is currently under Rose act due to suicidal ideations and chronic alcoholism. A punched a pole with both of his hands, the left is more edematous and ecchymotic than the right. Patient is neurovascularly intact. Imaging ordered and pending. Patient was protocoled, labs reviewed. CBC with no acute findings, chemistry with a sodium of 146, AST 194. Urine drug screen is positive for benzodiazepines. Salicylate level, acetaminophen level are unremarkable. Alcohol level is 217. Patient stated that he was wheezing, he has a history of COPD. He was given DuoNeb treatments 2. The wheezing improved after nebulizers. X-rays are pending, patient was given ibuprofen for pain. Care of patient transferred to [facility] who will medically clear patient when imaging results. Melony Romero [facility] Aug 24, 2017 22:24
--- NOTE | 2017-08-24 23:26 | RADRPT ---
EXAM DATE/TIME: 08/24/2017 23:09 [facility] COMPARISON: HAND RIGHT COMPLETE ([id number]), July 16, 2017, 21:04. INDICATIONS : Pain- Unknown injury MEDICAL HISTORY : Hepatitis B. Hepatitis C. SURGICAL HISTORY : None. ENCOUNTER: Initial ACUITY: 1 day PAIN SCORE: 8/10 LOCATION: Right Hand FINDINGS: AP, lateral and oblique views the right hand were obtained and demonstrate an old fracture deformity of the fifth metacarpal head and neck with residual volar angulation. There is soft tissue swelling o rica the dorsum of the hand with no acute fracture or malalignment. The carpus is intact. CONCLUSION: 1. Soft tissue swelling of the dorsum the hand no acute fracture or malalignment. 2. Old fracture deformity of the fifth metacarpal head and neck. Loy Sinha MD on August 24, 2017 at 23:24 Board Certified Radiologist. This report was verified electronically.
--- NOTE | 2017-08-24 23:28 | RADRPT ---
EXAM DATE/TIME: 08/24/2017 23:11 [facility] COMPARISON: HAND RIGHT COMPLETE ([id number]), July 16, 2017, 21:04. HAND LEFT COMPLETE ([id number]), July 16 17, 21:01. INDICATIONS : Pain- unknown injury MEDICAL HISTORY : Hepatitis B. Hepatitis C. SURGICAL HISTORY : None. ENCOUNTER: Initial ACUITY: 1 day PAIN SCORE: 7/10 LOCATION: Left FINDINGS: Three view examination of the left hand demonstrates no acute fracture or malalignment. There is soft tissue swelling of the dorsum of the metacarpals on the lateral exam. The carpus is intact. The carp al bones appear intact. The interphalangeal and metacarpophalangeal joints are intact. Bony mineral ization is normal. CONCLUSION: Soft tissue swelling over the dorsum of the hand with no acute fracture or malalignme nt. Loy Sinha MD on August 24, 2017 at 23:25 Board Certified Radiologist. This report was verified electronically.
--- NOTE | 2017-08-24 23:36 | PD ---
Physical Exam Time Seen by Provider: 23:25 Data Data Last Documented VS Vital Signs Date Time Temp Pulse Resp B/P (MAP) Pulse Ox O2 Delivery O2 Flow Rate FiO2 08/24/17 21:55 99 21 08/24/17 21:45 97.7 86 16 150/95 (113) Room Air Orders Orders Complete Blood Count With Diff (08/24/17 19:57) Comprehensive Metabolic Panel (08/24/17 19:57) Psych Screen (08/24/17 19:57) Alcohol (Ethanol) (08/24/17 19:57) Salicylates (Aspirin) (08/24/17 19:57) Tylenol (Acetaminophen) (08/24/17 19:57) Drug Screen, Random Urine (08/24/17 19:57) Albuterol-Ipratropium Neb (Duoneb Neb) (08/24/17 21:45) Chlordiazepoxide (Librium) (08/24/17 22:15) Ibuprofen (Motrin) (08/24/17 22:15) Hand, Complete ([id number]) (08/24/17 ) Hand, Complete ([id number]) (08/24/17 ) Alcohol Withdrawal Asmt-Ciwa ONCE (08/24/17 23:34) Flumazenil Inj (Romazicon Inj) (08/24/17 23:45) Lorazepam (Ativan) (08/24/17 23:45) Lorazepam Inj (Ativan Inj) (08/24/17 23:45) Lorazepam (Ativan) (08/24/17 23:45) Lorazepam Inj (Ativan Inj) (08/24/17 23:45) Lorazepam Inj (Ativan Inj) (08/24/17 23:45) Lorazepam Inj (Ativan Inj) (08/24/17 23:45) Labs Laboratory Tests Test 08/24/17 20:05 08/24/17 21:30 White Blood Count 5.1 TH/MM3 Red Blood Count 4.64 MIL/MM3 Hemoglobin 14.9 GM/DL Hematocrit 44.6 % Mean Corpuscular Volume 96.1 FL Mean Corpuscular Hemoglobin 32.0 PG Mean Corpuscular Hemoglobin Concent 33.4 % Red Cell Distribution Width 16.2 % Platelet Count 173 TH/MM3 Mean Platelet Volume 7.8 FL Neutrophils (%) (Auto) 45.3 % Lymphocytes (%) (Auto) 46.4 % Monocytes (%) (Auto) 6.5 % Eosinophils (%) (Auto) 1.0 % Basophils (%) (Auto) 0.8 % Neutrophils # (Auto) 2.3 TH/MM3 Lymphocytes # (Auto) 2.4 TH/MM3 Monocytes # (Auto) 0.3 TH/MM3 Eosinophils # (Auto) 0.1 TH/MM3 Basophils # (Auto) 0.0 TH/MM3 CBC Comment DIFF FINAL Differential Comment Blood Urea Nitrogen 6 MG/DL Creatinine 0.77 MG/DL Random Glucose 114 MG/DL Total Protein 7.7 GM/DL Albumin 3.7 GM/DL Calcium Level 8.4 MG/DL Alkaline Phosphatase 109 U/L Aspartate Amino Transf (AST/SGOT) 194 U/L Alanine Aminotransferase (ALT/SGPT) 73 U/L Total Bilirubin 0.5 MG/DL Sodium Level 146 MEQ/L Potassium Level 3.8 MEQ/L Chloride Level 110 MEQ/L Carbon Dioxide Level 28.9 MEQ/L Anion Gap 7 MEQ/L Estimat Glomerular Filtration Rate 106 ML/MIN Salicylates Level 2.3 MG/DL Acetaminophen Level LESS THAN 2.0 MCG/ML Ethyl Alcohol Level 217 MG/DL Urine Opiates Screen NEG Urine Barbiturates Screen NEG Urine Amphetamines Screen NEG Urine Benzodiazepines Screen POS Urine Cocaine Screen NEG Urine Cannabinoids Screen NEG MDM Medical Record Reviewed: Yes Supervised Visit with APOLLO: No Narrative Course This patient presents under Rose act. See previous providers notes. I was asked to follow up in the x-ray imaging of both hands. Extremities reveal soft tissue swelling with no acute abnormality. The patient be placed on CIWA precautions. He is medically cleared for psychiatric disposition. Diagnosis Primary Impression: Medical clearance for psychiatric admission José Miguel De Jesus Aug 24, 2017 23:36
[2017-08-24] MEDS ORDERED: LORazepam 2 MG TAB PO PRN (23:45)
[2017-08-24] MEDS ORDERED: FLUMAZENIL 0.5 MG/5 ML VIAL IV PUSH PRN (23:45)
[2017-08-24] MEDS ORDERED: LORazepam 2 MG/ML VIAL IV PUSH PRN ×4 (23:45)
[2017-08-25 07:51] VITALS: BP 155/105; PULSE 86; RESP 14; O2SAT 97
[2017-08-25] MEDS: LORazepam 1 MG TAB PO PRN ×2 (07:53→12:31)
[2017-08-25 08:57] VITALS: BP 154/96
[2017-08-25] MEDS ORDERED: ONDANSETRON ODT 4 MG TAB PO ONE (10:30)
--- NOTE | 2017-08-25 12:46 | PD ---
Data Data Last Documented VS Vital Signs Date Time Temp Pulse Resp B/P (MAP) Pulse Ox O2 Delivery O2 Flow Rate FiO2 08/25/17 08:57 154/96 (115) 08/25/17 07:51 86 14 97 Room Air 08/24/17 21:55 21 08/24/17 21:45 97.7 Orders Orders Complete Blood Count With Diff (08/24/17 19:57) Comprehensive Metabolic Panel (08/24/17 19:57) Psych Screen (08/24/17 19:57) Alcohol (Ethanol) (08/24/17 19:57) Salicylates (Aspirin) (08/24/17 19:57) Tylenol (Acetaminophen) (08/24/17 19:57) Drug Screen, Random Urine (08/24/17 19:57) Albuterol-Ipratropium Neb (Duoneb Neb) (08/24/17 21:45) Chlordiazepoxide (Librium) (08/24/17 22:15) Ibuprofen (Motrin) (08/24/17 22:15) Hand, Complete ([id number]) (08/24/17 ) Hand, Complete ([id number]) (08/24/17 ) Alcohol Withdrawal Asmt-Ciwa ONCE (08/24/17 23:34) Flumazenil Inj (Romazicon Inj) (08/24/17 23:45) Lorazepam (Ativan) (08/24/17 23:45) Lorazepam Inj (Ativan Inj) (08/24/17 23:45) Lorazepam (Ativan) (08/24/17 23:45) Lorazepam Inj (Ativan Inj) (08/24/17 23:45) Lorazepam Inj (Ativan Inj) (08/24/17 23:45) Lorazepam Inj (Ativan Inj) (08/24/17 23:45) Diet Regular Basic (08/25/17 Breakfast) Ondansetron Odt (Zofran Odt) (08/25/17 10:30) Labs Laboratory Tests Test 08/24/17 20:05 08/24/17 21:30 White Blood Count 5.1 TH/MM3 Red Blood Count 4.64 MIL/MM3 Hemoglobin 14.9 GM/DL Hematocrit 44.6 % Mean Corpuscular Volume 96.1 FL Mean Corpuscular Hemoglobin 32.0 PG Mean Corpuscular Hemoglobin Concent 33.4 % Red Cell Distribution Width 16.2 % Platelet Count 173 TH/MM3 Mean Platelet Volume 7.8 FL Neutrophils (%) (Auto) 45.3 % Lymphocytes (%) (Auto) 46.4 % Monocytes (%) (Auto) 6.5 % Eosinophils (%) (Auto) 1.0 % Basophils (%) (Auto) 0.8 % Neutrophils # (Auto) 2.3 TH/MM3 Lymphocytes # (Auto) 2.4 TH/MM3 Monocytes # (Auto) 0.3 TH/MM3 Eosinophils # (Auto) 0.1 TH/MM3 Basophils # (Auto) 0.0 TH/MM3 CBC Comment DIFF FINAL Differential Comment Blood Urea Nitrogen 6 MG/DL Creatinine 0.77 MG/DL Random Glucose 114 MG/DL Total Protein 7.7 GM/DL Albumin 3.7 GM/DL Calcium Level 8.4 MG/DL Alkaline Phosphatase 109 U/L Aspartate Amino Transf (AST/SGOT) 194 U/L Alanine Aminotransferase (ALT/SGPT) 73 U/L Total Bilirubin 0.5 MG/DL Sodium Level 146 MEQ/L Potassium Level 3.8 MEQ/L Chloride Level 110 MEQ/L Carbon Dioxide Level 28.9 MEQ/L Anion Gap 7 MEQ/L Estimat Glomerular Filtration Rate 106 ML/MIN Salicylates Level 2.3 MG/DL Acetaminophen Level LESS THAN 2.0 MCG/ML Ethyl Alcohol Level 217 MG/DL Urine Opiates Screen NEG Urine Barbiturates Screen NEG Urine Amphetamines Screen NEG Urine Benzodiazepines Screen POS Urine Cocaine Screen NEG Urine Cannabinoids Screen NEG MDM Supervised Visit with APOLLO: Yes Narrative Course The history, exam, and medical decision-making in the associated midlevel provider note were completed with my assistance. I reviewed and agree with the findings presented. I attest that I had a [id number] encounter with the patient on the same day, and personally performed and documented my assessment and findings in the medical record. *My assessment and Findings: This is a 52-year-old male who was brought in under a Rose act last evening by police. He says that he was feeling angry because he was drinking alcohol. He denies any suicidal or homicidal ideation. He is very eager to be discharged because he has an appointment with his pediatric licensed practical nurse at 2 PM and he [address] a [address] date that he has to make. The patient seems future oriented. He says he really came to the emergency department just for help with his alcohol but he realizes that he can't do this until he takes care of this upcoming court case. I think the patient is safe to be discharged. I don't think he meets Rose criteria as his chief complaint is substance intoxication. Patient will be discharged home. Diagnosis Primary Impression: Medical clearance for psychiatric admission Patient Instructions: General Instructions Additional Instruction: If you have thoughts of hurting herself or others return to the emergency department. Follow up with Candace Carter in regards to psychiatric or substance related issues at: [address] [place] [address] Med/Other Pt SpecificInfo: No Change to Meds Disposition: 01 DISCHARGE HOME Condition: Stable Adenike Henderson MD Aug 25, 2017 12:46
== END 2017-08-25 12:57 | disposition home or self-care (01) ==
LOC: NEDAMB 19:43 → NEPD 08-25 12:57
DX: R45.851 Suicidal ideations (principal); F10.20 Alcohol dependence, uncomplicated; J44.9 Chronic obstructive pulmonary disease, unspecified; M06.9 Rheumatoid arthritis, unspecified; D64.9 Anemia, unspecified; F41.9 Anxiety disorder, unspecified; I10 Essential (primary) hypertension; K74.60 Unspecified cirrhosis of liver; Z87.19 Personal history of other diseases of the digestive system
CPT/HCPCS: 73130; 80053; 80307; 85025; 94640; 94664; 99284

== ENCOUNTER 2017-12-21 09:31 | Inpatient (IN) | payer OTHER ==
[~2017-12-21] VITALS: Ht 185.4 cm; Wt 83.8 kg
[2017-12-21] VITALS (22 sets, daily range): BP systolic 84–128; BP diastolic 52–84; PULSE 82–132; RESP 16–29; TEMP 97.9–99.4; O2SAT 90–100
[~2017-12-21 09:31] MED LIST changes: +GAVISUS2 PO
[2017-12-21] MEDS ORDERED: SODIUM CHLOR 0.9% 1000 ML INJ 1,000 ML IV SCH (10:59)
[2017-12-21] MEDS ORDERED: SODIUM CHLORIDE 0.9% FLUSH 10 ML FLUSH IV FLUSH PRN ×2 (11:00→13:15)
[2017-12-21 11:10] LABS: BASOPHIL % 0.7 % (0.0-2.0); EOSINOPHIL % 0.3 % (0.0-4.0); HEMATOCRIT 31.2 % (39.0-51.0); HEMOGLOBIN 10.2 GM/DL (13.0-17.0); LYMPH % 23.2 % (9.0-44.0); MEAN CELL VOLUME 100.7 FL (80.0-100.0); MEAN CORPUSCULAR HGB CONC 32.8 % (32.0-36.0); MONO % 9.2 % (0.0-8.0); MONOCYTE # 0.4 TH/MM3 (0-0.9); NEUT % 66.6 % (16.0-70.0); PLATELET COUNT 156 TH/MM3 (150-450); RED CELL DISTRIBUTION WIDTH 17.3 % (11.6-17.2); WHITE BLOOD COUNT 4.4 TH/MM3 (4.0-11.0)
[2017-12-21 11:11] LABS: BILIRUBIN, URINE NEG (NEG); BLOOD, URINE TRACE (NEG); GLUCOSE,URINE NEG (NEG); KETONE, URINE TRACE mg/dL (NEG); NITRITE,URINE NEG (NEG); PH, URINE 8.5 (5.0-8.5); URINE COLOR YELLOW (YELLW/STRAW); URINE LEUKOCYTE ESTERASE SMALL (NEG)
[2017-12-21 11:17] LABS: SQUAMOUS EPITHELIAL CELL URINE 0-5 /hpf (0-5); WBC, URINE 15-19 /hpf (0-5)
[2017-12-21 11:17] LABS: CHLORIDE 99 MEQ/L (98-107); SODIUM (NA) 138 MEQ/L (136-145)
[2017-12-21 11:18] LABS: AMORPHOUS SEDIMENT, URINE MOD
[2017-12-21 11:20] LABS: CALCIUM 8.6 MG/DL (8.5-10.1)
[2017-12-21 11:21] LABS: ALBUMIN 3.8 GM/DL (3.4-5.0); BICARBONATE 29.5 MEQ/L (21.0-32.0); BLOOD UREA NITROGEN 25 MG/DL (7-18); GLUCOSE,RANDOM 166 MG/DL (74-106)
[2017-12-21 11:22] LABS: INTERNATIONAL NORMALIZED RATIO 1.1 RATIO
[2017-12-21 11:24] LABS: ALT (GPT) 121 U/L (12-78); AST (GOT) 316 U/L (15-37); GLOMERULAR FILTRATION RATE 89 ML/MIN (>89)
[2017-12-21 11:25] LABS: TOTAL BILIRUBIN ADULT 1.8 MG/DL (0.2-1.0); TOTAL PROTEIN 7.2 GM/DL (6.4-8.2)
[2017-12-21 11:27] LABS: ALKALINE PHOSPHATASE 91 U/L (45-117)
[2017-12-21] MEDS ORDERED: LORazepam 2 MG/ML VIAL IV PUSH ONE (11:30)
[2017-12-21] MEDS ORDERED: ONDANSETRON HCL 4 MG/2 ML VIAL IV PUSH ONE (11:45)
[2017-12-21] MEDS ORDERED: PANTOPRAZOLE SODIUM 40 MG VIAL IV PUSH ONE (11:45)
--- NOTE | 2017-12-21 12:06 | PD ---
HPI Chief Complaint: Syncope/Near-Syncope Time Seen by Provider: 11:12 Travel History International Travel<30 days: No Contact w/Intl Traveler<30days: No Traveled to known affect area: No History of Present Illness HPI This is a 52-year-old male presented to the ER complaining of nausea vomiting and generalized weakness since yesterday. Patient drinks alcohol heavily and states that he drinks about a gallon a day, last drink was within 24 hours and states that has been feeling sick to his stomach and have been hand and arm shaking. Patient had multiple episodes of vomiting in the ER and states that he has black stool. Hemoccult stool here in the ER was positive. Patient denies any chest pain or shortness of breath. PFSH Past Medical History Hx Anticoagulant Therapy: No Arthritis: Yes (RA) Cardiovascular Problems: Yes (HTN) COPD: Yes Diminished Hearing: No GERD: Yes Hepatitis: Yes (B + C) Hypertension: Yes Respiratory: Yes (COPD) Pancreatitis: Yes Ulcer: Yes Tetanus Vaccination: Unknown ?: Not Social History Alcohol Use: Yes (DAILY, VODKA 1/2 gallon - gallon) Tobacco Use: Yes (1/2 PPD) Substance Use: Yes (alcohol, cocaine) Allergies-Medications (Allergen,Severity, Reaction): Coded Allergies: Penicillins (Verified Allergy, Severe, 12/21/17) prednisone (Verified Allergy, Severe, rash, 12/21/17) Reported Meds & Prescriptions Reported Meds & Active Scripts Active Gaviscon Extra Strength R Liq (Aluminum Hydroxide-Mag Carb Liq) 508-475 Mg/10 Ml Susp 10-20 Ml PO QID PRN 7 Days Maximum 80 mL/24 hrs. Review of Systems Except as stated in HPI: all other systems reviewed are Neg Physical Exam Narrative GENERAL: Alert oriented 3 no acute distress. SKIN: Focused skin assessment warm/dry. HEAD: Atraumatic. Normocephalic. EYES: Pupils equal and round. No scleral icterus. No injection or drainage. ENT: No nasal bleeding or discharge. Mucous membranes pink and moist. NECK: Trachea midline. No JVD. CARDIOVASCULAR: Regular rate and rhythm. No murmur appreciated. RESPIRATORY: No accessory muscle use. Clear to auscultation. Breath sounds equal bilaterally. GASTROINTESTINAL: Abdomen soft, non-tender, nondistended. Hepatic and splenic margins not palpable. MUSCULOSKELETAL: No obvious deformities. No clubbing. No cyanosis. No edema. NEUROLOGICAL: Awake and alert. No obvious cranial nerve deficits. Motor grossly within normal limits. Normal speech. PSYCHIATRIC: Appropriate mood and affect; insight and judgment normal. Data Data Last Documented VS Vital Signs Date Time Temp Pulse Resp B/P (MAP) Pulse Ox O2 Delivery O2 Flow Rate FiO2 12/21/17 11:56 90 119/77 (91) 100 12/21/17 09:37 99.1 16 Orders Orders Complete Blood Count With Diff (12/21/17 10:59) Comprehensive Metabolic Panel (12/21/17 10:59) Lipase (12/21/17 10:59) Prothrombin Time / Inr (Pt) (12/21/17 10:59) Act Partial Throm Time (Ptt) (12/21/17 10:59) Urinalysis - C+S If Indicated (12/21/17 10:59) Iv Access Insert/Monitor (12/21/17 10:59) Ecg Monitoring (12/21/17 10:59) Oximetry (12/21/17 10:59) NPO (12/21/17 10:59) Sodium Chlor 0.9% 1000 Ml Inj (Ns 1000 M (12/21/17 10:59) Sodium Chloride 0.9% Flush (Ns Flush) (12/21/17 11:00) Electrocardiogram (12/21/17 10:59) Drug Screen, Random Urine (12/21/17 10:59) Alcohol (Ethanol) (12/21/17 10:59) Urine Culture (12/21/17 11:00) Lorazepam Inj (Ativan Inj) (12/21/17 11:30) Ondansetron Inj (Zofran Inj) (12/21/17 11:45) Pantoprazole Inj (Protonix Inj) (12/21/17 11:45) Admit Order (Ed Use Only) (12/21/17 12:20) Labs Laboratory Tests Test 12/21/17 11:00 12/21/17 11:02 Urine Color YELLOW Urine Turbidity CLEAR Urine pH 8.5 Urine Specific [place] 1.010 Urine Protein TRACE mg/dL Urine Glucose (UA) NEG mg/dL Urine Ketones TRACE mg/dL Urine Occult Blood TRACE Urine Nitrite NEG Urine Bilirubin NEG Urine Urobilinogen 1.0 MG/DL Urine Leukocyte Esterase SMALL Urine RBC 10-14 /hpf Urine WBC 15-19 /hpf Urine Squamous Epithelial Cells 0-5 /hpf Urine Amorphous Sediment MOD Microscopic Urinalysis Comment CULTURE INDICATED Urine Opiates Screen POS Urine Barbiturates Screen POS Urine Amphetamines Screen NEG Urine Benzodiazepines Screen NEG Urine Cocaine Screen NEG Urine Cannabinoids Screen NEG White Blood Count 4.4 TH/MM3 Red Blood Count 3.10 MIL/MM3 Hemoglobin 10.2 GM/DL Hematocrit 31.2 % Mean Corpuscular Volume 100.7 FL Mean Corpuscular Hemoglobin 33.0 PG Mean Corpuscular Hemoglobin Concent 32.8 % Red Cell Distribution Width 17.3 % Platelet Count 156 TH/MM3 Mean Platelet Volume 7.0 FL Neutrophils (%) (Auto) 66.6 % Lymphocytes (%) (Auto) 23.2 % Monocytes (%) (Auto) 9.2 % Eosinophils (%) (Auto) 0.3 % Basophils (%) (Auto) 0.7 % Neutrophils # (Auto) 3.0 TH/MM3 Lymphocytes # (Auto) 1.0 TH/MM3 Monocytes # (Auto) 0.4 TH/MM3 Eosinophils # (Auto) 0.0 TH/MM3 Basophils # (Auto) 0.0 TH/MM3 CBC Comment DIFF FINAL Differential Comment Prothrombin Time 11.0 SEC Prothromb Time International Ratio 1.1 RATIO Activated Partial Thromboplast Time 23.6 SEC Blood Urea Nitrogen 25 MG/DL Creatinine 0.90 MG/DL Random Glucose 166 MG/DL Total Protein 7.2 GM/DL Albumin 3.8 GM/DL Calcium Level 8.6 MG/DL Alkaline Phosphatase 91 U/L Aspartate Amino Transf (AST/SGOT) 316 U/L Alanine Aminotransferase (ALT/SGPT) 121 U/L Total Bilirubin 1.8 MG/DL Sodium Level 138 MEQ/L Potassium Level 3.7 MEQ/L Chloride Level 99 MEQ/L Carbon Dioxide Level 29.5 MEQ/L Anion Gap 10 MEQ/L Estimat Glomerular Filtration Rate 89 ML/MIN Lipase 136 U/L Ethyl Alcohol Level LESS THAN 3 MG/DL [facility] Medical Decision Making Medical Screen Exam Complete: Yes Emergency Medical Condition: Yes Differential Diagnosis DTs, cardiac arrhythmia, upper GI bleed. Narrative Course This is a 52-year-old male presented the ER for nausea and vomiting and generalized weakness. Patient drinks heavily every day and did not drink anything since yesterday. He has been shaking here in the ER and had 2 episodes of vomiting. Vomitus is nonbloody and nonbilious. Hemoccult stool was positive for blood. Patient is at risk for DTs and will be admitted for further evaluation and management for his DTs and GI bleed and repeat EKG since patient had one episode of atrial flutter. I spoke with Dr. Sanford and he accepted the patient. Diagnosis Primary Impression: Upper GI bleed Additional Impressions: Delirium tremens Atrial flutter Qualified Codes: I48.3 - Typical atrial flutter Admitting Information Admitting Physician Requests: Observation Condition: Stable Benjamin Leonardo MD Dec 21, 2017 12:06
[2017-12-21] MEDS ORDERED: LORazepam 2 MG/ML VIAL IV PUSH PRN ×3 (13:15)
[2017-12-21] MEDS ORDERED: ONDANSETRON HCL 4 MG/2 ML VIAL IV PUSH PRN (13:15)
[2017-12-21] MEDS ORDERED: FLUMAZENIL 0.5 MG/5 ML VIAL IV PUSH PRN (13:15)
--- NOTE | 2017-12-21 13:44 | HHI.HP ---
[facility] No Primary Care Physician Admission Diagnosis DELERIUM TREMERS, ALCOHOL DEBENDENCE, UPPER GI BLEEDING. Diagnoses: (1) Acute GI hemorrhage Diagnosis: Principal (2) Hematemesis Diagnosis: Principal (3) Melena Diagnosis: Principal (4) Acute blood loss anemia Diagnosis: Principal (5) Weakness Diagnosis: Principal (6) Fall at home Diagnosis: Principal (7) Chronic alcohol use Diagnosis: Principal Chief Complaint: Nausea, vomiting, vomiting blood, black stool, lightheadedness, dizziness, fall at home Travel History International Travel<30 Days: No Contact w/Intl Traveler <30 Da: No Traveled to Known Affected Are: No History of Present Illness 52-year-old male who is known to the hospital for recurrent evaluation in the emergency department, recurrent admissions for alcohol withdrawal, who has a past medical history of chronic alcohol abuse, hepatitis B , hepatitis C, history of GI bleed, history of gastric ulcers, history of hypertension, history of IV drug use, history of chronic back pain who presented to the hospital today because he has been experiencing lightheadedness , dizziness, fall at home, nausea, vomiting, dark colored stool. Patient states that he is trying to quit drinking again and is been 2 days since his last drink. He states that yesterday he had multiple episodes of large-volume black stool. There was an episode of nausea vomiting where he indicates that he vomited up blood. Patient indicates that he was in the bathroom today and had another episode of dark colored stools and when he went to stand up he got severely lightheaded, dizzy, he fell down without any loss of consciousness or head injury. He has had increased shortness of breath. Patient had workup done in emergency department and laboratory results indicate that the patient has had a 6 g hemoglobin drop in the last week. However in light of the patient having large volume melena and hematemesis yesterday with think that patient has acute blood loss anemia which is symptomatic. Patient will be admitted to the ICU for close monitoring. Case was already discussed with GI in which plans for EGD tomorrow morning unless patient clinical status worsens. Review of Systems Constitutional: COMPLAINS OF: Dizziness Respiratory: COMPLAINS OF: Shortness of breath Gastrointestinal: COMPLAINS OF: Nausea, Vomiting Neurologic: COMPLAINS OF: Poor Balance Except as stated in HPI: all other systems reviewed are Neg Past Family Social History Past Medical History ETOH abuse Chronic Pancreatitis Hepatitis B and C Duodenal Ulcers Tobacco Abuse History of IV drug use Chronic back pain Rheumatoid Arthritis Steel plate status post right ankle fracture Chest tube for pneumothorax Past Surgical History Tonsillectomy EGD June 2016 Liver Biopsy Right ankle surgery Reported Medications Reported Meds & Active Scripts Active Gaviscon Extra Strength R Liq (Aluminum Hydroxide-Mag Carb Liq) 508-475 Mg/10 Ml Susp 10-20 Ml PO QID PRN 7 Days Maximum 80 mL/24 hrs. Allergies: Coded Allergies: Penicillins (Verified Allergy, Severe, 12/21/17) prednisone (Verified Allergy, Severe, rash, 12/21/17) Family History Reviewed and significant for father with diabetes and coronary artery disease. Mother has a history of anxiety. Social History Patient smokes a half a pack a cigarettes a day, and drinks up to 1/2 gallon of vodka daily. Denies any illicit drugs Physical Exam Vital Signs Vital Signs Date Time Temp Pulse Resp B/P (MAP) Pulse Ox O2 Delivery O2 Flow Rate FiO2 12/21/17 11:56 90 119/77 (91) 100 12/21/17 11:33 100 12/21/17 09:37 99.1 132 16 128/62 (84) 98 Physical Exam GENERAL: Well-developed, well-nourished, in no acute distress. alert and orientated HEENT: Head is normocephalic without any lesions or masses noted. Facial features are symmetric. Eyes: Pupils equal round reactive to light. Extraocular muscles are intact. Conjunctivae were clear. Oropharyngeal: Pharynx without any erythema edema. Tongue is midline without deviation. Buccal mucosa is moist without any masses or lesions NECK: Supple without any masses. Trachea midline no deviation. No JVD, no bruits are appreciated CARDIAC: Regular rhythm, regular rate. S1/S2 are heard. No murmurs gallops or rubs. LUNGS: Clear to auscultation bilaterally. No wheeze, rhonchi or rales. No use of accessory muscles on inspiration or expiration. ABDOMEN: Soft, nontender. Nondistended. Bowel sounds heard in all 4 quadrants. No organomegaly or masses. Negative rebound, negative guarding EXTREMITIES: No edema, pulses are equal bilaterally. No cyanosis or clubbing NEUROLOGY: Mood and affect appear appropriate. Cranial nerves II through XII grossly intact. Muscle strength 5/5 in upper and lower extremities bilaterally. Deep tendon reflexes are 2+ in upper and lower extremities bilaterally. Laboratory Laboratory Tests Test 12/21/17 11:00 12/21/17 11:02 Urine Color YELLOW Urine Turbidity CLEAR Urine pH 8.5 Urine Specific [place] 1.010 Urine Protein TRACE Urine Glucose (UA) NEG Urine Ketones TRACE Urine Occult Blood TRACE Urine Nitrite NEG Urine Bilirubin NEG Urine Urobilinogen 1.0 Urine Leukocyte Esterase SMALL Urine RBC 10-14 Urine WBC 15-19 Urine Squamous Epithelial Cells 0-5 Urine Amorphous Sediment MOD Microscopic Urinalysis Comment CULTURE INDICATED Urine Opiates Screen POS Urine Barbiturates Screen POS Urine Amphetamines Screen NEG Urine Benzodiazepines Screen NEG Urine Cocaine Screen NEG Urine Cannabinoids Screen NEG White Blood Count 4.4 Red Blood Count 3.10 Hemoglobin 10.2 Hematocrit 31.2 Mean Corpuscular Volume 100.7 Mean Corpuscular Hemoglobin 33.0 Mean Corpuscular Hemoglobin Concent 32.8 Red Cell Distribution Width 17.3 Platelet Count 156 Mean Platelet Volume 7.0 Neutrophils (%) (Auto) 66.6 Lymphocytes (%) (Auto) 23.2 Monocytes (%) (Auto) 9.2 Eosinophils (%) (Auto) 0.3 Basophils (%) (Auto) 0.7 Neutrophils # (Auto) 3.0 Lymphocytes # (Auto) 1.0 Monocytes # (Auto) 0.4 Eosinophils # (Auto) 0.0 Basophils # (Auto) 0.0 CBC Comment DIFF FINAL Differential Comment Prothrombin Time 11.0 Prothromb Time International Ratio 1.1 Activated Partial Thromboplast Time 23.6 Blood Urea Nitrogen 25 Creatinine 0.90 Random Glucose 166 Total Protein 7.2 Albumin 3.8 Calcium Level 8.6 Alkaline Phosphatase 91 Aspartate Amino Transf (AST/SGOT) 316 Alanine Aminotransferase (ALT/SGPT) 121 Total Bilirubin 1.8 Sodium Level 138 Potassium Level 3.7 Chloride Level 99 Carbon Dioxide Level 29.5 Anion Gap 10 Estimat Glomerular Filtration Rate 89 Lipase 136 Ethyl Alcohol Level LESS THAN 3 Date/Time Source Procedure Growth Status 12/21/17 11:00 Urine Clean Catch Urine Culture Pending Received Result Diagram: 12/21/17 1102 12/21/17 1102 Caprini VTE Risk Assessment Caprini VTE Risk Assessment: Mod/High Risk (score >= 2) Caprini Risk Assessment Model Point Value = 1 Point Value = 2 Point Value = 3 Point Value = 5 Age 41-60 Minor surgery BMI > 25 kg/m2 Swollen legs Varicose veins or History of unexplained or recurrent spontaneous Oral contraceptives or hormone replacement Sepsis (< 1 month) Serious lung disease, including pneumonia (< 1 month) Abnormal pulmonary function Acute myocardial infarction Congestive heart failure (< 1 month) History of inflammatory bowel disease Medical patient at bed rest Age 61-74 Arthroscopic surgery Major open surgery (> 45 min) Laparoscopic surgery (> 45 min) Malignancy Confined to bed (> 72 hours) Immobilizing plaster cast Central venous access Age >= 75 History of VTE Family history of VTE Factor V Leiden Prothrombin [id number] Lupus anticoagulant Anticardiolipin antibodies Elevated serum homocysteine Heparin-induced thrombocytopenia Other congenital or acquired thrombophilia Stroke (< 1 month) Elective arthroplasty Hip, pelvis, or leg fracture Acute spinal cord injury (< 1 month) Prophylaxis Regimen Total Risk Factor Score Risk Level Prophylaxis Regimen 0-1 Low Early ambulation 2 Moderate Order ONE of the following: *Sequential Compression Device (SCD) *Heparin 5000 units SQ BID 3-4 Higher Order ONE of the following medications: *Heparin 5000 units SQ TID *Enoxaparin/Lovenox 40 mg SQ daily (WT < 150 kg, CrCl > 30 mL/min) *Enoxaparin/Lovenox 30 mg SQ daily (WT < 150 kg, CrCl > 10-29 mL/min) *Enoxaparin/Lovenox 30 mg SQ BID (WT < 150 kg, CrCl > 30 mL/min) AND/OR *Sequential Compression Device (SCD) 5 or more Highest Order ONE of the following medications: *Heparin 5000 units SQ TID (Preferred with Epidurals) *Enoxaparin/Lovenox 40 mg SQ daily (WT < 150 kg, CrCl > 30 mL/min) *Enoxaparin/Lovenox 30 mg SQ daily (WT < 150 kg, CrCl > 10-29 mL/min) *Enoxaparin/Lovenox 30 mg SQ BID (WT < 150 kg, CrCl > 30 mL/min) AND *Sequential Compression Device (SCD) Assessment and Plan Assessment and Plan Acute upper GI hemorrhage Patient with episode of hematemesis and melenic stool Admit to ICU for closer monitoring Hemodynamically stable at this time H&H every 4 hours Type and cross 2 units of packed red blood cells GI consultation has been requested, did speak with them directly Patient will be n.p.o., obtain consent for EGD, plans for procedure in the a.m. unless patient's status worsens Acute blood loss anemia, symptomatic Patient with lightheadedness, dizziness, fall at home Patient has had a drop of 6 g of hemoglobin in the last week, however with patient having large volume melena and hematemesis yesterday, likely acute Transfuse if hemoglobin below 8.0 Alcohol dependency with known history of alcohol withdrawal, alcohol seizures Monitor for seizures [facility] protocol Thiamine, folic acid Liver cirrhosis, hepatitis B and C patient with hyperbilirubinemia, transaminitis Continue monitor liver enzymes Tobacco abuse Patient counseled on cessation DVT Prophylaxis sequential compression devices Avoid chemical prophylaxis secondary to acute GI bleed Frank Rey Dec 21, 2017 13:44
[2017-12-21] MEDS ORDERED: THIAMINE INJ 100 MG in SODIUM CHLORIDE 0.9% INJ 100 ML IV SCH (14:00)
[2017-12-21] MEDS ORDERED: ENALAPRILAT 1.25 MG/ML VIAL IV PUSH PRN (14:00)
[2017-12-21] MEDS ORDERED: MULTIVITAMIN INJ 10 ML, FOLIC ACID INJ 1 MG in SODIUM CHLORID 0.9% 500 ML INJ 500 ML IV SCH (14:00)
[2017-12-21] MEDS: PANTOPRAZOLE INJ 80 MG in SODIUM CHLORIDE 0.9% INJ 100 ML IV SCH (15:00)
[2017-12-21] MEDS ORDERED: CHLORHEXIDINE GLUCONATE 2 % 1 PACK (2 CLOTHS)(extra cloths) TOPICAL PRN (15:15)
[2017-12-21 16:00] LABS: HEMATOCRIT 25.9 % (39.0-51.0); HEMOGLOBIN 8.8 GM/DL (13.0-17.0)
[2017-12-21] MEDS: SODIUM CHLOR 0.9% 1000 ML INJ 1,000 ML IV SCH (16:11)
[2017-12-21] MEDS: CIPROFLOXACIN 400 MG PREMIX 200 ML IV SCH (16:11)
[2017-12-21] MEDS ORDERED: diphenhydrAMINE HCL 25 MG CAP PO PRN (16:15)
[2017-12-21] MEDS ORDERED: ACETAMINOPHEN 325 MG TAB PO PRN (16:15)
[2017-12-21] MEDS ORDERED: SODIUM CHLOR 0.9% 250 ML INJ 250 ML IV ONE (16:15)
[2017-12-21] MEDS: LORazepam 2 MG/ML VIAL IV PUSH PRN ×2 (17:15→20:17)
[2017-12-21 19:59] LABS: HEMATOCRIT 23.2 % (39.0-51.0)
[2017-12-21] MEDS: SODIUM CHLORIDE 0.9% FLUSH 10 ML FLUSH IV FLUSH SCH (20:22)
[2017-12-21] MEDS ORDERED: RESP: ALBUTEROL 2.5 MG/IPRATROPIUM 0.5 MG NEB (PRN) NEB (22:00)
[2017-12-22] VITALS (31 sets, daily range): BP systolic 85–140; BP diastolic 55–85; PULSE 63–98; RESP 8–29; TEMP 97–98.4; O2SAT 95–100
[2017-12-22] MEDS: CIPROFLOXACIN 400 MG PREMIX 200 ML IV SCH (02:06)
[2017-12-22] MEDS: CHLORHEXIDINE GLUCONATE 2 % 1 PACK (2 CLOTHS)(taper/protocol) TOPICAL SCH ×2 (02:06→21:48)
[2017-12-22] MEDS: SODIUM CHLOR 0.9% 1000 ML INJ 1,000 ML IV SCH ×4 (05:04→21:47)
[2017-12-22] MEDS: PANTOPRAZOLE INJ 80 MG in SODIUM CHLORIDE 0.9% INJ 100 ML IV SCH (05:06)
[2017-12-22] MEDS: LORazepam 2 MG/ML VIAL IV PUSH PRN ×2 (05:06→20:06)
[2017-12-22 05:11] LABS: AUTOMATED NEUTROPHIL # 1.9 TH/MM3 (1.8-7.7); BASOPHIL % 0.8 % (0.0-2.0); EOSINOPHIL # 0.1 TH/MM3 (0-0.4); EOSINOPHIL % 1.9 % (0.0-4.0); HEMATOCRIT 27.9 % (39.0-51.0); HEMOGLOBIN 9.7 GM/DL (13.0-17.0); LYMPH % 40.2 % (9.0-44.0); LYMPHOCYTE # 1.4 TH/MM3 (1.0-4.8); MEAN CELL VOLUME 96.2 FL (80.0-100.0); MEAN CORPUSCULAR HEMOGLOBIN 33.4 PG (27.0-34.0); MEAN CORPUSCULAR HGB CONC 34.7 % (32.0-36.0); MEAN PLATELET VOLUME 7.2 FL (7.0-11.0); MONO % 5.7 % (0.0-8.0); MONOCYTE # 0.2 TH/MM3 (0-0.9); NEUT % 51.4 % (16.0-70.0); PLATELET COUNT 81 TH/MM3 (150-450); RED BLOOD COUNT 2.89 MIL/MM3 (4.50-5.90); RED CELL DISTRIBUTION WIDTH 20.9 % (11.6-17.2); WHITE BLOOD COUNT 3.6 TH/MM3 (4.0-11.0)
[2017-12-22 06:22] LABS: ALBUMIN 2.7 GM/DL (3.4-5.0); ALKALINE PHOSPHATASE 62 U/L (45-117); ALT (GPT) 87 U/L (12-78); AST (GOT) 257 U/L (15-37); BICARBONATE 27.1 MEQ/L (21.0-32.0); BLOOD UREA NITROGEN 14 MG/DL (7-18); CALCIUM 7.6 MG/DL (8.5-10.1); CHLORIDE 107 MEQ/L (98-107); CREATININE 0.66 MG/DL (0.60-1.30); GLOMERULAR FILTRATION RATE 127 ML/MIN (>89); GLUCOSE,RANDOM 100 MG/DL (74-106); SODIUM (NA) 140 MEQ/L (136-145); TOTAL PROTEIN 5.1 GM/DL (6.4-8.2)
--- NOTE | 2017-12-22 07:56 | PD.CONS ---
HPI History of Present Illness This is a 52 year old male, with known history of drug and alcohol dependence and alcohol withdrawal who apparently also has a history of hepatitis B and C but I do not see that in the review of lab also patient reports a history of gastric ulcers and GI bleed Patient presenting with complaints of lightheadedness and dizziness and weakness he had also nausea and vomiting with coffee-ground emesis and reports having dark melenic-like stools on admission the patient is found to be anemic Patient denies any abdominal pain and is currently asking if he can eat once his procedure is done with otherwise he feels comfortable at this point and back at his baseline [facility] Past Medical History ETOH abuse Chronic Pancreatitis Hepatitis B and C Duodenal Ulcers Tobacco Abuse History of IV drug use Chronic back pain Rheumatoid Arthritis Steel plate status post right ankle fracture Chest tube for pneumothorax Past Surgical History Tonsillectomy EGD June 2016 Liver Biopsy Right ankle surgery Coded Allergies: Penicillins (Verified Allergy, Severe, 12/21/17) prednisone (Verified Allergy, Severe, rash, 12/21/17) Medications Current Medications Medications (Trade) Dose Ordered Sig/Karlos Route PRN Reason Start Time Stop Time Status Last Admin Dose Admin Sodium Chloride (NS Flush) 2 ml UNSCH PRN IV FLUSH FLUSH AFTER USING IV ACCESS 12/21/17 13:15 Sodium Chloride (NS Flush) 2 ml BID IV FLUSH 12/21/17 21:00 12/21/17 20:22 Sodium Chloride 1,000 ml @ 125 mls/hr Q8H IV 12/21/17 13:04 12/22/17 05:19 Ondansetron HCl (Zofran Inj) 4 mg Q6H PRN IV PUSH NAUSEA OR VOMITING 12/21/17 13:15 Ciprofloxacin/ Dextrose 200 ml @ 200 mls/hr Q12H IV 12/21/17 14:00 12/22/17 02:06 Pantoprazole Sodium 80 mg/ Sodium Chloride 100 ml @ 10 mls/hr Q10H IV 12/21/17 15:00 12/22/17 05:06 Multivitamins 10 ml/Folic Acid 1 mg/Sodium Chloride 510.2 ml @ 125 mls/hr Q24H IV 12/21/17 14:00 12/26/17 13:59 12/21/17 14:00 Thiamine HCl 100 mg/Sodium Chloride 101 ml @ 100 mls/hr Q24H IV 12/21/17 14:00 12/24/17 13:59 12/21/17 14:00 Flumazenil (Romazicon Inj) 0.2 mg Q1M PRN IV PUSH SEE LABEL COMMENTS 12/21/17 13:15 Lorazepam (Ativan) 1 mg Q4H PRN PO CIWA 8 - 10 12/21/17 13:15 Lorazepam (Ativan Inj) 1 mg Q4H PRN IV PUSH CIWA 8 - 10 12/21/17 13:15 Lorazepam (Ativan) 2 mg Q2H PRN PO CIWA 11-14 12/21/17 13:15 Lorazepam (Ativan Inj) 2 mg Q2H PRN IV PUSH CIWA 11-14 12/21/17 13:15 12/22/17 05:06 Lorazepam (Ativan Inj) 2 mg Q1H PRN IV PUSH CIWA 15-20 12/21/17 13:15 Lorazepam (Ativan Inj) 2 mg Q15M PRN IV PUSH CIWA > 20 12/21/17 13:15 Enalaprilat (Vasotec Inj) 1.25 mg Q6H PRN IV PUSH SBP>160, DBP>90 12/21/17 14:00 Miscellaneous Information Patient in critical care unit? Ass... [id number] .XX 12/21/17 15:15 12/21/17 20:00 Chlorhexidine Gluconate (Chlorhexidine 2% Cloth) 3 pack DAILY@04 TOPICAL 12/22/17 04:00 12/26/17 04:01 12/22/17 02:06 Chlorhexidine Gluconate (Chlorhexidine 2% Cloth) 3 pack UNSCH PRN TOPICAL HYGIENIC CARE 12/21/17 15:15 12/26/17 15:04 Sodium Chloride 250 ml @ 15 mls/hr ONCE ONCE IV 12/21/17 16:15 12/22/17 08:54 12/21/17 16:10 Acetaminophen (Tylenol) 650 mg Q4H PRN PO SEE LABEL COMMENTS 12/21/17 16:15 Diphenhydramine HCl (Benadryl) 25 mg Q4H PRN PO SEE LABEL COMMENTS 12/21/17 16:15 Albuterol/ Ipratropium (Duoneb Neb) 1 ampule Q4HR NEB PRN NEB wheeze, sob 12/21/17 22:00 12/21/17 22:52 Family History Reviewed and significant for father with diabetes and coronary artery disease. Mother has a history of anxiety. Social History Patient smokes a half a pack a cigarettes a day, and drinks up to 1/2 gallon of vodka daily. Denies any illicit drugs Review of Systems Review of systems Patient denies any headache blurry vision, but he complains of dizziness denies any chest pain cough fever chills, but he reports shortness of breath Denies any palpitations or fatigue denies any polyuria dysuria hematuria, denies any numbness tingling or weakness, denies any skin rash pruritus or jaundice, denies any easy bruising or bleeding tendency, denies any recent change in mood GI Exam Vitals I&O Vital Signs Date Time Temp Pulse Resp B/P (MAP) Pulse Ox O2 Delivery O2 Flow Rate FiO2 12/22/17 07:40 98.4 68 18 117/77 (90) 98 12/22/17 06:31 84 12/22/17 06:31 84 8 109/79 (89) 98 12/22/17 05:31 76 24 106/71 (83) 97 12/22/17 04:31 97.8 80 22 110/71 (84) 96 12/22/17 04:00 78 12/22/17 03:31 80 25 97/73 (81) 97 12/22/17 03:31 80 25 97/73 (81) 97 12/22/17 02:40 82 25 99/68 (78) 100 12/22/17 02:40 82 25 99/68 (78) 100 12/22/17 02:40 97.9 82 25 99/68 100 12/22/17 02:31 80 24 95/59 (71) 99 12/22/17 02:31 80 24 95/59 (71) 99 12/22/17 02:00 84 12/22/17 01:31 86 9 92/60 (71) 98 12/22/17 01:31 86 9 92/60 (71) 98 12/22/17 01:00 88 26 106/55 (72) 99 12/22/17 01:00 88 26 106/55 (72) 99 12/22/17 00:30 92 27 85/56 (66) 98 12/22/17 00:15 92 24 96/64 (75) 97 12/22/17 00:14 97.0 90 25 96/64 97 12/22/17 00:00 98.0 94 25 101/67 (78) 97 12/22/17 00:00 94 12/22/17 00:00 97 Nasal Cannula 2.00 12/21/17 23:56 97.9 94 24 108/65 96 12/21/17 23:36 96 27 108/65 (79) 90 12/21/17 23:36 97.9 96 27 108/65 90 12/21/17 22:00 96 16 99/66 (77) 12/21/17 22:00 96 12/21/17 21:14 98.8 96 24 97/69 93 12/21/17 21:00 96 19 92/57 (69) 96 12/21/17 20:59 98 29 92/57 96 12/21/17 20:30 96 26 106/71 (83) 97 12/21/17 20:02 100 24 116/66 (83) 12/21/17 20:00 98 12/21/17 20:00 98.8 98 26 84/54 (64) 95 12/21/17 19:45 95 21 12/21/17 19:30 94 20 115/84 (94) 97 12/21/17 19:00 90 21 114/70 (85) 97 12/21/17 18:00 82 12/21/17 17:11 98.8 88 16 108/68 (81) 97 12/21/17 17:00 96 12/21/17 16:00 92 12/21/17 15:00 98.3 92 98/52 (67) 12/21/17 15:00 92 12/21/17 15:00 93 12/21/17 14:02 12/21/17 14:00 97 12/21/17 14:00 99.4 97 16 115/79 (91) 98 12/21/17 13:00 98 21 12/21/17 11:56 90 119/77 (91) 100 12/21/17 11:33 100 12/21/17 09:37 99.1 132 16 128/62 (84) 98 I/O 4/1/18 4/112/21/17 12/22/17 12/22/17 12/22/17 07:00 15:00 23:00 07:00 15:00 23:00 Intake Total 1750 ml 1200 ml Output Total 650 ml 1400 ml Balance 1100 ml -200 ml Intake Oral 0 ml IV Total 1700 ml 250 ml Packed Cells 800 ml Blood Product IV Normal Saline Flush 50 ml 150 ml Output Urine Total 650 ml 1400 ml Stool Total 0 ml Laboratory Test 12/21/17 11:00 12/21/17 11:02 12/21/17 15:05 12/21/17 15:45 Urine Color YELLOW Urine Turbidity CLEAR Urine pH 8.5 Urine Specific [place] 1.010 Urine Protein TRACE mg/dL Urine Glucose (UA) NEG mg/dL Urine Ketones TRACE mg/dL Urine Occult Blood TRACE Urine Nitrite NEG Urine Bilirubin NEG Urine Urobilinogen 1.0 MG/DL Urine Leukocyte Esterase SMALL Urine RBC 10-14 /hpf Urine WBC 15-19 /hpf Urine Squamous Epithelial Cells 0-5 /hpf Urine Amorphous Sediment MOD Microscopic Urinalysis Comment CULTURE INDICATED Urine Opiates Screen POS Urine Barbiturates Screen POS Urine Amphetamines Screen NEG Urine Benzodiazepines Screen NEG Urine Cocaine Screen NEG Urine Cannabinoids Screen NEG White Blood Count 4.4 TH/MM3 Red Blood Count 3.10 MIL/MM3 Hemoglobin 10.2 GM/DL 8.8 GM/DL Hematocrit 31.2 % 25.9 % Mean Corpuscular Volume 100.7 FL Mean Corpuscular Hemoglobin 33.0 PG Mean Corpuscular Hemoglobin Concent 32.8 % Red Cell Distribution Width 17.3 % Platelet Count 156 TH/MM3 Mean Platelet Volume 7.0 FL Neutrophils (%) (Auto) 66.6 % Lymphocytes (%) (Auto) 23.2 % Monocytes (%) (Auto) 9.2 % Eosinophils (%) (Auto) 0.3 % Basophils (%) (Auto) 0.7 % Neutrophils # (Auto) 3.0 TH/MM3 Lymphocytes # (Auto) 1.0 TH/MM3 Monocytes # (Auto) 0.4 TH/MM3 Eosinophils # (Auto) 0.0 TH/MM3 Basophils # (Auto) 0.0 TH/MM3 CBC Comment DIFF FINAL Differential Comment Prothrombin Time 11.0 SEC Prothromb Time International Ratio 1.1 RATIO Activated Partial Thromboplast Time 23.6 SEC Blood Urea Nitrogen 25 MG/DL Creatinine 0.90 MG/DL Random Glucose 166 MG/DL Total Protein 7.2 GM/DL Albumin 3.8 GM/DL Calcium Level 8.6 MG/DL Alkaline Phosphatase 91 U/L Aspartate Amino Transf (AST/SGOT) 316 U/L Alanine Aminotransferase (ALT/SGPT) 121 U/L Total Bilirubin 1.8 MG/DL Sodium Level 138 MEQ/L Potassium Level 3.7 MEQ/L Chloride Level 99 MEQ/L Carbon Dioxide Level 29.5 MEQ/L Anion Gap 10 MEQ/L Estimat Glomerular Filtration Rate 89 ML/MIN Lipase 136 U/L Ethyl Alcohol Level LESS THAN 3 MG/DL Nasal Screen MRSA (PCR) MRSA NOT DETECTED Test 12/21/17 19:20 12/22/17 04:58 Hemoglobin 8.0 GM/DL 9.7 GM/DL Hematocrit 23.2 % 27.9 % White Blood Count 3.6 TH/MM3 Red Blood Count 2.89 MIL/MM3 Mean Corpuscular Volume 96.2 FL Mean Corpuscular Hemoglobin 33.4 PG Mean Corpuscular Hemoglobin Concent 34.7 % Red Cell Distribution Width 20.9 % Platelet Count 81 TH/MM3 Mean Platelet Volume 7.2 FL Neutrophils (%) (Auto) 51.4 % Lymphocytes (%) (Auto) 40.2 % Monocytes (%) (Auto) 5.7 % Eosinophils (%) (Auto) 1.9 % Basophils (%) (Auto) 0.8 % Neutrophils # (Auto) 1.9 TH/MM3 Lymphocytes # (Auto) 1.4 TH/MM3 Monocytes # (Auto) 0.2 TH/MM3 Eosinophils # (Auto) 0.1 TH/MM3 Basophils # (Auto) 0.0 TH/MM3 CBC Comment AUTO DIFF Differential Comment AUTO DIFF CONFIRMED Platelet Estimate LOW Platelet Morphology Comment NORMAL Blood Urea Nitrogen 14 MG/DL Creatinine 0.66 MG/DL Random Glucose 100 MG/DL Total Protein 5.1 GM/DL Albumin 2.7 GM/DL Calcium Level 7.6 MG/DL Alkaline Phosphatase 62 U/L Aspartate Amino Transf (AST/SGOT) 257 U/L Alanine Aminotransferase (ALT/SGPT) 87 U/L Total Bilirubin 2.0 MG/DL Sodium Level 140 MEQ/L Potassium Level 3.5 MEQ/L Chloride Level 107 MEQ/L Carbon Dioxide Level 27.1 MEQ/L Anion Gap 6 MEQ/L Estimat Glomerular Filtration Rate 127 ML/MIN Date/Time Source Procedure Growth Status 12/21/17 11:00 Urine Clean Catch Urine Culture Pending Received Physical Examination HEENT: Pupils round and reactive to light; normocephalic; atraumatic; no jaundice. Throat is clear. NECK: Neck is supple, no JVD, no lymphadenopathy. CHEST: Chest is clear to auscultation and percussion. CARDIAC: Regular rate and rhythm with no murmur gallop or rubs. ABDOMEN: Soft, nondistended, nontender; no hepatosplenomegaly; bowel sounds are present in all four quadrants. EXTREMITIES: No clubbing, cyanosis, or edema. SKIN: Normal; no rash; no jaundice. TOWN CLERK: No focal deficits; alert and oriented times three. Assessment and Plan Plan Patient with signs and symptoms of upper GI bleed with coffee-ground emesis and melanotic stools with noted anemia Agree with current supportive care We will proceed with upper endoscopy Further recommendations she will depend on findings Awais Serra MD Dec 22, 2017 07:56
--- NOTE | 2017-12-22 08:26 | PD.PROCEDR ---
GI Procedure PROCEDURE PERFORMED EGD with biopsy INDICATION FOR PROCEDURE GI bleed, anemia PROCEDURE: The procedure, risks and benefits were discussed with Patient/POA and informed consent was obtained. Anesthesia sedated Patient with Diprivan. Patient was placed in the left lateral decubitus position. EGD: The Pentax videoscope was introduced through the oropharynx and advanced to the second portion of the duodenum under direct visualization. Retroflexion was performed in the stomach. FINDINGS: The esophagus this appeared to be unremarkable and within normal limits except for a mild Schatzki ring at the GE junction The stomach there was a small hiatal hernia the gastric mucosa appeared to be somewhat erythemic in a patchy fashion specifically the antrum and to a lesser extent the body no gastric varices were noted no blood or bleeding was seen antral biopsies were taken for further evaluation The duodenum there was patchy erythema in the duodenal bulb with erosions and a small duodenal ulcer which was clean based biopsies were taken from the duodenal bulb including ulcer site no visible vessel no blood or bleeding was seen risks of bleeding are deemed to be low at this point the rest of the duodenum is unremarkable ESTIMATED BLOOD LOSS: None SPECIMENS REMOVED: Gastric and duodenal biopsies COMPLICATIONS: None IMPRESSION: Schatzki ring Hiatal hernia Gastritis Duodenal ulcer PLAN: Await biopsies Avoid NSAIDs and aspirin Continue with PPI Protonix 40 mg twice daily Advance diet Okay for discharge from a GI standpoint once stable from alcohol withdrawal standpoint Awais Serra MD Dec 22, 2017 08:26
--- NOTE | 2017-12-22 08:34 | HHI.PR ---
Subjective Remarks Patient seen and examined today for follow-up on acute anemia, alcohol withdrawal. Patient was seen in postop after having endoscopy performed. Patient resting comfortably in bed. States that he is hungry and wants to eat. Vital signs are stable, patient remains afebrile Objective Vitals Vital Signs Date Time Temp Pulse Resp B/P (MAP) Pulse Ox O2 Delivery O2 Flow Rate FiO2 12/22/17 07:40 98.4 68 18 117/77 (90) 98 12/22/17 07:40 12/22/17 06:31 84 12/22/17 06:31 84 8 109/79 (89) 98 12/22/17 05:31 76 24 106/71 (83) 97 12/22/17 04:31 97.8 80 22 110/71 (84) 96 12/22/17 04:00 78 12/22/17 03:31 80 25 97/73 (81) 97 12/22/17 03:31 80 25 97/73 (81) 97 12/22/17 02:40 82 25 99/68 (78) 100 12/22/17 02:40 82 25 99/68 (78) 100 12/22/17 02:40 97.9 82 25 99/68 100 12/22/17 02:31 80 24 95/59 (71) 99 12/22/17 02:31 80 24 95/59 (71) 99 12/22/17 02:00 84 12/22/17 01:31 86 9 92/60 (71) 98 12/22/17 01:31 86 9 92/60 (71) 98 12/22/17 01:00 88 26 106/55 (72) 99 12/22/17 01:00 88 26 106/55 (72) 99 12/22/17 00:30 92 27 85/56 (66) 98 12/22/17 00:15 92 24 96/64 (75) 97 12/22/17 00:14 97.0 90 25 96/64 97 12/22/17 00:00 98.0 94 25 101/67 (78) 97 12/22/17 00:00 94 12/22/17 00:00 97 Nasal Cannula 2.00 12/21/17 23:56 97.9 94 24 108/65 96 12/21/17 23:36 96 27 108/65 (79) 90 4/1/18 23:36 97.9 96 27 108/65 90 12/21/17 22:00 96 16 99/66 (77) 12/21/17 22:00 96 12/21/17 21:14 98.8 96 24 97/69 93 12/21/17 21:00 96 19 92/57 (69) 96 12/21/17 20:59 98 29 92/57 96 12/21/17 20:30 96 26 106/71 (83) 97 12/21/17 20:02 100 24 116/66 (83) 12/21/17 20:00 98 12/21/17 20:00 98.8 98 26 84/54 (64) 95 12/21/17 19:45 95 21 12/21/17 19:30 94 20 115/84 (94) 97 12/21/17 19:00 90 21 114/70 (85) 97 12/21/17 18:00 82 12/21/17 17:11 98.8 88 16 108/68 (81) 97 12/21/17 17:00 96 12/21/17 16:00 92 12/21/17 15:00 98.3 92 98/52 (67) 12/21/17 15:00 92 12/21/17 15:00 93 12/21/17 14:02 12/21/17 14:00 97 12/21/17 14:00 99.4 97 16 115/79 (91) 98 12/21/17 13:00 98 21 12/21/17 11:56 90 119/77 (91) 100 12/21/17 11:33 100 12/21/17 09:37 99.1 132 16 128/62 (84) 98 I/O 12/21/17 12/21/17 12/21/17 12/22/17 12/22/17 12/22/17 07:00 15:00 23:00 07:00 15:00 23:00 Intake Total 1750 ml 1200 ml Output Total 650 ml 1400 ml Balance 1100 ml -200 ml Intake Oral 0 ml IV Total 1700 ml 250 ml Packed Cells 800 ml Blood Product IV Normal Saline Flush 50 ml 150 ml Output Urine Total 650 ml 1400 ml Stool Total 0 ml Result Diagram: 12/22/17 0458 12/22/17 045 Objective Remarks GENERAL: Well-developed, well-nourished, in no acute distress. alert and orientated HEENT: Head is normocephalic without any lesions or masses noted. Facial features are symmetric. Eyes: Extraocular muscles are intact. Conjunctivae were clear. NECK: Supple without any masses. Trachea midline no deviation. No JVD CARDIAC: Regular rhythm, regular rate. S1/S2 are heard. No murmurs gallops or rubs. LUNGS: Clear to auscultation bilaterally. No wheeze, rhonchi or rales. No use of accessory muscles on inspiration or expiration. ABDOMEN: Soft, nontender. Nondistended. Bowel sounds heard in all 4 quadrants. No organomegaly or masses. Negative rebound, negative guarding EXTREMITIES: No edema, pulses are equal bilaterally. No cyanosis or clubbing NEUROLOGY: Mood and affect appear appropriate. Cranial nerves II through XII grossly intact. Moving all extremities, speech is clear Urinary Catheter: No Vascular Central Line Catheter: No A/P Assessment and Plan Acute upper GI hemorrhage Patient with episode of hematemesis and melenic stool Admit to ICU for closer monitoring Hemodynamically stable at this time H&H every 4 hours Type and cross and transfuse 2 units packed red blood cells GI consultation was performed Endoscopy done this morning which indicated gastric ulcers, gastritis. GI recommended proton pump inhibitor and can be discharged from GI standpoint Advanced to healthy heart diet as tolerated Acute blood loss anemia, symptomatic, stable Patient with lightheadedness, dizziness, fall at home on presentation Patient has had a drop of 6 g of hemoglobin in the last week, however with patient having large volume melena and hematemesis yesterday, likely acute with some degree of concentration Alcohol dependency with known history of alcohol withdrawal, alcohol seizures Monitor for seizures [facility] protocol, patient still with intermittent score of 13 with administration of 2 mg IV Ativan 3 since admission Start p.o. thiamine, folic acid Start Librium 10 mg 3 times daily Liver cirrhosis, hepatitis B and C patient with hyperbilirubinemia, transaminitis Continue monitor liver enzymes Tobacco abuse Patient counseled on cessation DVT Prophylaxis sequential compression devices Avoid chemical prophylaxis secondary to acute GI bleed Discharge Planning Anticipate discharge home once withdrawal symptoms are controlled and no longer requiring IV Ativan Frank Rey Dec 22, 2017 08:34
[2017-12-22] MEDS: SODIUM CHLORIDE 0.9% FLUSH 10 ML FLUSH IV FLUSH SCH ×2 (09:00→21:48)
--- NOTE | 2017-12-22 09:12 | EKG ---
Date Performed: 12/21/2017 Time Performed: 09:43:25 PTAGE: 52 years EKG: SINUS TACHYCARDIA NONSPECIFIC T-WAVE ABNORMALITY ABNORMAL RHYTHM ECG PREVIOUS TRACING : 01/06/2017 20.38 Since the previous tracing, no significant change noted DOCTOR: Ely Galloway Interpretating Date/Time 12/22/2017 09:11:47
[2017-12-22] MEDS: PANTOPRAZOLE SOD 40 MG DELAYED RELEASE TAB PO SCH ×2 (09:20→20:06)
[2017-12-22] MEDS: FOLIC ACID 1 MG TAB PO SCH (09:20)
[2017-12-22] MEDS: THIAMINE HCL 100 MG TAB PO SCH (09:20)
[2017-12-22] MEDS: LORazepam 2 MG TAB PO PRN (09:20)
[2017-12-22] MEDS: LORazepam 1 MG TAB PO PRN ×2 (13:17→18:08)
[2017-12-23] VITALS: BP 125/78; PULSE 88; RESP 24; TEMP 98; O2SAT 97
[2017-12-23] MEDS: LORazepam 2 MG/ML VIAL IV PUSH PRN (00:04)
[2017-12-23] MEDS: LORazepam 2 MG TAB PO PRN (02:28)
[2017-12-23 04:00] VITALS: BP 136/75; PULSE 86; RESP 22; TEMP 98; O2SAT 97
[2017-12-23] MEDS: SODIUM CHLOR 0.9% 1000 ML INJ 1,000 ML IV SCH (04:36)
[2017-12-23 08:00] VITALS: BP 134/83; PULSE 96; RESP 18; TEMP 97.8; O2SAT 97
[2017-12-23] MEDS: THIAMINE HCL 100 MG TAB PO SCH (08:46)
[2017-12-23] MEDS: PANTOPRAZOLE SOD 40 MG DELAYED RELEASE TAB PO SCH (08:46)
[2017-12-23] MEDS: FOLIC ACID 1 MG TAB PO SCH (08:46)
[2017-12-23] MEDS: SODIUM CHLORIDE 0.9% FLUSH 10 ML FLUSH IV FLUSH SCH (08:48)
[2017-12-23] MEDS ORDERED: CHLO10CA5 PO (08:55)
[2017-12-23] MEDS ORDERED: PANT40TA3 PO (08:55)
--- NOTE | 2017-12-23 08:56 | HHI.DCPOC ---
Discharge Care Plan Diagnosis: (1) Acute blood loss anemia (2) Chronic alcohol use Goals to Promote Your Health * To prevent worsening of your condition and complications * To maintain your health at the optimal level Directions to Meet Your Goals Take your medications as prescribed Follow your dietary instruction Follow activity as directed Keep your appointments as scheduled Take your immunizations and boosters as scheduled If your symptoms worsen call your PCP, if no PCP go to Urgent Care Center or Emergency Room Smoking is Dangerous to Your Health. Avoid second hand smoke Call the 24-hour hour crisis hotline for domestic abuse at Lisa Santos MD Dec 23, 2017 08:56
--- NOTE | 2017-12-23 09:44 | HHI.DS ---
Discharge Summary Admission Date Dec 21, 2017 at 16:53 Discharge Date: Dec 23, 2017 Admitting Diagnosis NATALIE TAYLOR, ALCOHOL DEBENDENCE, UPPER GI BLEEDING. (1) Acute GI hemorrhage ICD Code: K92.2 - Gastrointestinal hemorrhage, unspecified Diagnosis: Principal (2) Hematemesis ICD Code: K92.0 - Hematemesis Diagnosis: Principal (3) Melena ICD Code: K92.1 - Melena Diagnosis: Principal (4) Acute blood loss anemia ICD Code: D62 - Acute posthemorrhagic anemia Diagnosis: Principal (5) Weakness ICD Code: R53.1 - Weakness Diagnosis: Principal (6) Fall at home ICD Code: W19.XXXA - Unspecified fall, initial encounter; Y92.009 - Unspecified place in unspecified non-institutional (private) residence as the place of occurrence of the external cause Diagnosis: Principal (7) Chronic alcohol use ICD Code: Z72.89 - Other problems related to lifestyle Diagnosis: Principal Procedures Upper gI; Dx duodenal ulcer Brief History - From Admission 52-year-old male who is known to the hospital for recurrent evaluation in the emergency department, recurrent admissions for alcohol withdrawal, who has a past medical history of chronic alcohol abuse, hepatitis B , hepatitis C, history of GI bleed, history of gastric ulcers, history of hypertension, history of IV drug use, history of chronic back pain who presented to the hospital today because he has been experiencing lightheadedness , dizziness, fall at home, nausea, vomiting, dark colored stool. Patient states that he is trying to quit drinking again and is been 2 days since his last drink. He states that yesterday he had multiple episodes of large-volume black stool. There was an episode of nausea vomiting where he indicates that he vomited up blood. Patient indicates that he was in the bathroom today and had another episode of dark colored stools and when he went to stand up he got severely lightheaded, dizzy, he fell down without any loss of consciousness or head injury. He has had increased shortness of breath. Patient had workup done in emergency department and laboratory results indicate that the patient has had a 6 g hemoglobin drop in the last week. However in light of the patient having large volume melena and hematemesis yesterday with think that patient has acute blood loss anemia which is symptomatic. Patient will be admitted to the ICU for close monitoring. Case was already discussed with GI in which plans for EGD tomorrow morning unless patient clinical status worsens. CBC/BMP: 12/22/17 0458 12/22/17 0458 Significant Findings Laboratory Tests Test 12/21/17 11:00 12/21/17 11:02 12/21/17 15:05 12/21/17 15:45 Urine Ketones TRACE mg/dL (NEG) Urine Leukocyte Esterase SMALL (NEG) Urine RBC 10-14 /hpf (0-3) Urine WBC 15-19 /hpf (0-5) Urine Opiates Screen POS (NEG) Urine Barbiturates Screen POS (NEG) Red Blood Count 3.10 MIL/MM3 (4.50-5.90) Hemoglobin 10.2 GM/DL (13.0-17.0) 8.8 GM/DL (13.0-17.0) Hematocrit 31.2 % (39.0-51.0) 25.9 % (39.0-51.0) Mean Corpuscular Volume 100.7 FL (80.0-100.0) Red Cell Distribution Width 17.3 % (11.6-17.2) Monocytes (%) (Auto) 9.2 % (0.0-8.0) Activated Partial Thromboplast Time 23.6 SEC (24.3-30.1) Blood Urea Nitrogen 25 MG/DL (7-18) Random Glucose 166 MG/DL (74-106) Aspartate Amino Transf (AST/SGOT) 316 U/L (15-37) Alanine Aminotransferase (ALT/SGPT) 121 U/L (12-78) Total Bilirubin 1.8 MG/DL (0.2-1.0) Test 12/21/17 19:20 12/22/17 04:58 Hemoglobin 8.0 GM/DL (13.0-17.0) 9.7 GM/DL (13.0-17.0) Hematocrit 23.2 % (39.0-51.0) 27.9 % (39.0-51.0) White Blood Count 3.6 TH/MM3 (4.0-11.0) Red Blood Count 2.89 MIL/MM3 (4.50-5.90) Red Cell Distribution Width 20.9 % (11.6-17.2) Platelet Count 81 TH/MM3 (150-450) Platelet Estimate LOW (NORMAL) Total Protein 5.1 GM/DL (6.4-8.2) Albumin 2.7 GM/DL (3.4-5.0) Calcium Level 7.6 MG/DL (8.5-10.1) Aspartate Amino Transf (AST/SGOT) 257 U/L (15-37) Alanine Aminotransferase (ALT/SGPT) 87 U/L (12-78) Total Bilirubin 2.0 MG/DL (0.2-1.0) PE at Discharge GENERAL: This is a well-nourished, well-developed patient, in no apparent distress. CARDIOVASCULAR: Regular rate and rhythm without murmurs, gallops, or rubs. RESPIRATORY: Clear to auscultation. Breath sounds equal bilaterally. No wheezes , rales, or rhonchi. GASTROINTESTINAL: Abdomen soft, non-tender, nondistended. Normal active bowel sounds MUSCULOSKELETAL: Extremities without clubbing, cyanosis, or edema. NEURO: Alert & Oriented x4 to person, place, time, situation. Moves all ext x4 Pt update on day of discharge Patient doing well Stronger no further bleeding dc plans discussed with patient/RN Hospital Course Patient is a 52-year-old gentleman who was seen and treated for GI bleed and had upper endoscopy. He does drink quite a bit alcohol and this is likely related to that. He did require 2 units packed red blood cells for acute GI bleeding he was started on Ativan for withdrawal Pt Condition on Discharge: Good Discharge Disposition: Discharge Home Discharge Time: <= 30 minutes Discharge Instructions DIET: Follow Instructions for: As Tolerated, No Restrictions Activities you can perform: Regular-No Restrictions Follow up Referrals: Gastroenterology PCP Follow-up New Medications: Chlordiazepoxide HCl (Chlordiazepoxide HCl) 10 Mg Capsule 10 MG PO TID for withdrawal, #20 CAP take 10 mg 3x day for 3 days, then 2x day for 3 days than once daily x3 days Pantoprazole (Pantoprazole) 40 Mg Tab 40 MG PO Q12HR for ulcer, #60 TAB Continued Medications: Aluminum Hydroxide-Mag Carb Liq (Gaviscon Extra Strength R Liq) 508-475 Mg/10 Ml Susp 10-20 ML PO QID PRN for HEARTBURN for 7 Days, ML 0 Refills Maximum 80 mL/24 hrs. Lisa Santos MD Dec 23, 2017 09:44
== END 2017-12-23 09:25 | disposition home or self-care (01) | DRG 378 ==
LOC: PHED 09:31 → PHEDA 12:24 → PHICU 13:59 → OBSVTOIN 16:53 → MERGE 16:53 → PH3A 12-23 06:28
PROVIDERS: ADMIT Hospitalist; ATTEND Hospitalist
PROC: 0DB98ZX Excision of Duodenum, Via Natural or Artificial Opening Endoscopic, Diagnostic (ICD-10-PCS; principal; 2017-12-22 07:50)
DX: K92.0 Hematemesis (principal); F10.231 Alcohol dependence with withdrawal delirium; B19.10 Unspecified viral hepatitis B without hepatic coma; I48.3 Typical atrial flutter; K74.60 Unspecified cirrhosis of liver; K86.1 Other chronic pancreatitis; K22.2 Esophageal obstruction; D62 Acute posthemorrhagic anemia; K26.9 Duodenal ulcer, unspecified as acute or chronic, without hemorrhage or perforation; I10 Essential (primary) hypertension; M06.9 Rheumatoid arthritis, unspecified; Z72.89 Other problems related to lifestyle; J44.9 Chronic obstructive pulmonary disease, unspecified; B19.20 Unspecified viral hepatitis C without hepatic coma; F17.210 Nicotine dependence, cigarettes, uncomplicated; W19.XXXA Unspecified fall, initial encounter; Y92.009 Unspecified place in unspecified non-institutional (private) residence as the place of occurrence of the external cause; Z87.11 Personal history of peptic ulcer disease; G89.29 Other chronic pain; Z83.3 Family history of diabetes mellitus; Z82.49 Family history of ischemic heart disease and other diseases of the circulatory system; Z81.8 Family history of other mental and behavioral disorders; K70.10 Alcoholic hepatitis without ascites; K44.9 Diaphragmatic hernia without obstruction or gangrene; K29.70 Gastritis, unspecified, without bleeding; K21.9 Gastro-esophageal reflux disease without esophagitis
CPT/HCPCS: 36430; 76937; 80053; 80307; 81001; 83690; 85014; 85018; 85025; 85610; 85730; 86850; 86900; 86901; 86920; 87086; 87641; 88305; 88312; 93005; 94664; 96361; 96374; 96375; C9113; J0744; J2060; J2405; J3411; J7030; J7040; J7050; P9016

== ENCOUNTER 2018-01-01 13:54 | Observation (INO) | payer OTHER ==
[~2018-01-01] VITALS: Ht 198.1 cm; Wt 90.0 kg
[~2018-01-01 13:54] MED LIST changes: +CHLO10CA5 PO; +PANT40TA3 PO
[2018-01-01 14:43] VITALS: BP 142/93; PULSE 89; RESP 16; TEMP 98.2; O2SAT 100
[2018-01-01 17:37] LABS: BILIRUBIN, URINE NEG (NEG); BLOOD, URINE NEG (NEG); GLUCOSE,URINE NEG (NEG); KETONE, URINE NEG (NEG); NITRITE,URINE NEG (NEG); SQUAMOUS EPITHELIAL CELL URINE <1 /hpf (0-5); URINE COLOR YELLOW (YELLW/STRAW); URINE LEUKOCYTE ESTERASE NEG (NEG)
[2018-01-01 19:48] VITALS: BP 154/97; PULSE 79; RESP 16; O2SAT 95
[2018-01-01] MEDS ORDERED: PANT20 PO (19:56)
[2018-01-01 20:49] VITALS: O2SAT 97
[2018-01-01] MEDS ORDERED: PANTOPRAZOLE SODIUM 40 MG VIAL IV PUSH ONE (21:00)
[2018-01-01] MEDS ORDERED: SODIUM CHLOR 0.9% 1000 ML INJ 1,000 ML IV ONE (21:00)
[2018-01-01] MEDS ORDERED: MORPHINE SULFATE 2 MG/ML SYRINGE IV PUSH ONE (21:00)
[2018-01-01 21:07] VITALS: BP 137/87; PULSE 80; RESP 16; O2SAT 98
--- NOTE | 2018-01-01 21:08 | PD ---
HPI Chief Complaint: GI Complaint Time Seen by Provider: 19:40 Travel History International Travel<30 days: No Contact w/Intl Traveler<30days: No Traveled to known affect area: No History of Present Illness HPI Patient is a 52-year-old male who says 4 days ago he was discharged from [place] where he had been admitted for rectal bleeding. He had a endoscopy and colonoscopy. pt is unclear on what the finding were . Reviewing his lab work I see that he was anemic and was transfused only 2 weeks ago when [place] He reports abdo pain and nausea and return of rectal bleeding. Pain is sharp epigastric. Pt also has Etoh abuse history. I will treat with protonix push drip IV NS and CIWA protocol for possible ETOH with drawal PFSH Past Medical History Hx Anticoagulant Therapy: No Anemia: Yes Arthritis: Yes (RA) Asthma: No Autoimmune Disease: No Blood Disorders: Yes (HEPATITIS B AND C NO TREATMENT) Anxiety: Yes Depression: Yes Heart Rhythm Problems: No Cancer: No Cardiovascular Problems: No High Cholesterol: No Chemotherapy: No Chest Pain: Yes Congestive Heart Failure: No Cirrhosis: Yes COPD: Yes Cerebrovascular Accident: No Diabetes: No Diminished Hearing: No Endocrine: No Gastrointestinal Disorders: Yes (PANCREATITIS) GERD: Yes Genitourinary: No Headaches: Yes Hepatitis: Yes (B + C) Hiatal Hernia: No Heparin Induced Thrombocytopen: No Herniated Disk: Yes Hypertension: Yes Immune Disorder: No Implanted Vascular Access Dvce: Yes Insomnia: Yes Kidney Stones: No Musculoskeletal: No Neurologic: No Psychiatric: No Reproductive: No Respiratory: Yes (COPD) Integumentary: Yes (HX IV DRUG USE) Immunizations Current: Yes Migraines: Yes Pancreatitis: Yes Pneumonia: Yes Radiation Therapy: No Renal Failure: No Seizures: No Sickle Cell Disease: No Sleep Apnea: No Thyroid Disease: No Ulcer: Yes PNEUMOCCOCAL Vaccine (Year): 2 Past Surgical History Abdominal Surgery: Yes (LIVER BIOPSY) AICD: No Arteriovenous Shunt: No Body Medical Devices: STEEL PLATE IN RIGHT ANKLE Cardiac Surgery: No Ear Surgery: No Endocrine Surgery: Yes (LIVER BIOPSY) Eye Surgery: No Genitourinary Surgery: No Gynecologic Surgery: No Hysterectomy: No Insulin Pump: No Joint Replacement: No Neurologic Surgery: No Oral Surgery: No Pacemaker: No Thoracic Surgery: Yes (CHEST TUBE- R/O TB 2009) Tonsillectomy: Yes Other Surgery: Yes (RIGHT ANKLE PLATE/SCREWS) Social History Alcohol Use: Yes (DAILY, VODKA 1/2 gallon) Tobacco Use: Yes (1/2 PPD) Substance Use: Yes (alcohol, cocaine) Allergies-Medications (Allergen,Severity, Reaction): Coded Allergies: Penicillins (Verified Allergy, Severe, 01/01/18) prednisone (Verified Allergy, Severe, Rash, 01/01/18) Reported Meds & Prescriptions Reported Meds & Active Scripts Active Gaviscon Extra Strength R Liq (Aluminum Hydroxide-Mag Carb Liq) 508-475 Mg/10 Ml Susp 10-20 Ml PO QID PRN 7 Days Maximum 80 mL/24 hrs. Zofran Odt (Ondansetron Odt) 4 Mg Tab 4 Mg SL Q6HR PRN Ultram (Tramadol HCl) 50 Mg Tab 50 Mg PO Q4H PRN Review of Systems Except as stated in HPI: all other systems reviewed are Neg Physical Exam Narrative GENERAL: Patient is awake alert nontoxic-appearing does not appear to be in any severe distress she does show me when I come into the exam room that he has blood that is coming through his jeans he said he set for 8 hours in the waiting room SKIN: Warm and dry. HEAD: Atraumatic. Normocephalic. EYES: Pupils equal and round. No scleral icterus. No injection or drainage. ENT: No nasal bleeding or discharge. Mucous membranes pink and moist. NECK: Trachea midline. No JVD. CARDIOVASCULAR: Regular rate and rhythm. RESPIRATORY: No accessory muscle use. Clear to auscultation. Breath sounds equal bilaterally. GASTROINTESTINAL: Abdomen soft, non-tender, nondistended. Hepatic and splenic margins not palpable. Rectal exam there is bright red blood around the rectal area no signs of hemorrhoids and it is guaiac positive.. no stool is retrieved from the rectal vault MUSCULOSKELETAL: Extremities without clubbing, cyanosis, or edema. No obvious deformities. NEUROLOGICAL: Awake and alert. No obvious cranial nerve deficits. Motor grossly within normal limits. Five out of 5 muscle strength in the arms and legs. Normal speech. PSYCHIATRIC: Appropriate mood and affect; insight and judgment normal. Data Data Last Documented VS Vital Signs Date Time Temp Pulse Resp B/P (MAP) Pulse Ox O2 Delivery O2 Flow Rate FiO2 01/01/18 21:07 80 16 137/87 (104) 98 Room Air 4/12/18 14:43 98.2 Orders Orders Complete Blood Count With Diff (01/01/18 14:59) Comprehensive Metabolic Panel (01/01/18 14:59) Urinalysis - C+S If Indicated (01/01/18 14:59) Iv Access Insert/Monitor (01/01/18 14:59) Oxygen Administration (01/01/18 14:59) Oximetry (01/01/18 14:59) Lipase (01/01/18 14:59) Type And Screen (01/01/18 20:12) Prothrombin Time / Inr (Pt) (01/01/18 20:12) Sodium Chlor 0.9% 1000 Ml Inj (Ns 1000 M (01/01/18 21:00) Morphine Inj (Morphine Inj) (01/01/18 21:00) Pantoprazole Inj (Protonix Inj) (01/01/18 21:00) Alcohol Withdrawal Asmt-Ciwa Q4HX18 (01/01/18 22:16) Admit Order (Ed Use Only) (01/01/18 22:57) Pantoprazole Inj (Protonix Inj) (01/01/18 23:00) Labs Laboratory Tests Test 01/01/18 17:05 01/01/18 20:20 Urine Color YELLOW Urine Turbidity CLEAR Urine pH 8.0 Urine Specific [place] 1.012 Urine Protein NEG mg/dL Urine Glucose (UA) NEG mg/dL Urine Ketones NEG mg/dL Urine Occult Blood NEG Urine Nitrite NEG Urine Bilirubin NEG Urine Urobilinogen 2.0 MG/DL Urine Leukocyte Esterase NEG Urine RBC LESS THAN 1 /hpf Urine WBC LESS THAN 1 /hpf Urine Squamous Epithelial Cells <1 /hpf Microscopic Urinalysis Comment CULT NOT INDICATED White Blood Count 6.5 TH/MM3 Red Blood Count 3.59 MIL/MM3 Hemoglobin 11.9 GM/DL Hematocrit 34.8 % Mean Corpuscular Volume 97.2 FL Mean Corpuscular Hemoglobin 33.3 PG Mean Corpuscular Hemoglobin Concent 34.3 % Red Cell Distribution Width 19.3 % Platelet Count 304 TH/MM3 Mean Platelet Volume 8.4 FL Neutrophils (%) (Auto) 77.8 % Lymphocytes (%) (Auto) 14.1 % Monocytes (%) (Auto) 6.9 % Eosinophils (%) (Auto) 0.6 % Basophils (%) (Auto) 0.6 % Neutrophils # (Auto) 5.1 TH/MM3 Lymphocytes # (Auto) 0.9 TH/MM3 Monocytes # (Auto) 0.5 TH/MM3 Eosinophils # (Auto) 0.0 TH/MM3 Basophils # (Auto) 0.0 TH/MM3 CBC Comment DIFF FINAL Differential Comment Prothrombin Time 10.6 SEC Prothromb Time International Ratio 1.0 RATIO Blood Urea Nitrogen 8 MG/DL Creatinine 0.73 MG/DL Random Glucose 113 MG/DL Total Protein 7.1 GM/DL Albumin 3.7 GM/DL Calcium Level 8.8 MG/DL Alkaline Phosphatase 79 U/L Aspartate Amino Transf (AST/SGOT) 207 U/L Alanine Aminotransferase (ALT/SGPT) 96 U/L Total Bilirubin 1.4 MG/DL Sodium Level 138 MEQ/L Potassium Level 3.6 MEQ/L Chloride Level 101 MEQ/L Carbon Dioxide Level 29.1 MEQ/L Anion Gap 8 MEQ/L Estimat Glomerular Filtration Rate 113 ML/MIN Lipase 108 U/L [facility] Medical Decision Making Medical Screen Exam Complete: Yes Emergency Medical Condition: Yes Differential Diagnosis GI hemorrhage lower vs upper vs rectal injury vs hemorrhoids vs AV malformation vs diverticular bleed. Narrative Course pt is treated with NS pain meds CIWA protocol and admitted for GI consult. Diagnosis Primary Impression: Rectal bleeding Scripts Metronidazole (Flagyl) 500 Mg Tab 500 MG PO TID for Infection for 7 Days, TAB 0 Refills Prov: Luis Armando Maher MD 01/05/18 Ciprofloxacin (Cipro) 500 Mg Tab 500 MG PO BID for Infection for 7 Days, #14 TAB 0 Refills Prov: Luis Armando Maher MD 01/05/18 Pantoprazole (Pantoprazole) 40 Mg Tab 40 MG PO DAILY for ulcer for 30 Days, #30 TAB 0 Refills Prov: Luis Armando Maher MD 01/05/18 Bharath Yan MD Jan 01, 2018 21:07
[2018-01-01 21:17] LABS: AUTOMATED NEUTROPHIL # 5.1 TH/MM3 (1.8-7.7); BASOPHIL % 0.6 % (0.0-2.0); EOSINOPHIL % 0.6 % (0.0-4.0); HEMATOCRIT 34.8 % (39.0-51.0); HEMOGLOBIN 11.9 GM/DL (13.0-17.0); LYMPH % 14.1 % (9.0-44.0); LYMPHOCYTE # 0.9 TH/MM3 (1.0-4.8); MEAN CELL VOLUME 97.2 FL (80.0-100.0); MEAN CORPUSCULAR HEMOGLOBIN 33.3 PG (27.0-34.0); MEAN CORPUSCULAR HGB CONC 34.3 % (32.0-36.0); MEAN PLATELET VOLUME 8.4 FL (7.0-11.0); MONO % 6.9 % (0.0-8.0); MONOCYTE # 0.5 TH/MM3 (0-0.9); NEUT % 77.8 % (16.0-70.0); PLATELET COUNT 304 TH/MM3 (150-450); RED BLOOD COUNT 3.59 MIL/MM3 (4.50-5.90); RED CELL DISTRIBUTION WIDTH 19.3 % (11.6-17.2); WHITE BLOOD COUNT 6.5 TH/MM3 (4.0-11.0)
[2018-01-01 21:20] LABS: PROTHROMBIN TIME - PATIENT 10.6 SEC (9.8-11.6)
[2018-01-01 21:31] LABS: ALT (GPT) 96 U/L (12-78)
[2018-01-01 21:34] LABS: ALKALINE PHOSPHATASE 79 U/L (45-117); TOTAL BILIRUBIN ADULT 1.4 MG/DL (0.2-1.0); TOTAL PROTEIN 7.1 GM/DL (6.4-8.2)
[2018-01-01 21:35] LABS: ALBUMIN 3.7 GM/DL (3.4-5.0); AST (GOT) 207 U/L (15-37); BICARBONATE 29.1 MEQ/L (21.0-32.0); BLOOD UREA NITROGEN 8 MG/DL (7-18); CALCIUM 8.8 MG/DL (8.5-10.1); CHLORIDE 101 MEQ/L (98-107); CREATININE 0.73 MG/DL (0.60-1.30); GLOMERULAR FILTRATION RATE 113 ML/MIN (>89); GLUCOSE,RANDOM 113 MG/DL (74-106); SODIUM (NA) 138 MEQ/L (136-145)
[2018-01-01 23:00] VITALS: BP 152/96; PULSE 88; RESP 16; O2SAT 96
[2018-01-01] MEDS ORDERED: PANTOPRAZOLE INJ 80 MG in SODIUM CHLORIDE 0.9% INJ 100 ML IV SCH ×3 (23:00→23:45)
[2018-01-01] MEDS ORDERED: IOHEXOL 350 MG/ML 10 ML VIAL (for RAD DIAG) IVCONTRAST ONE (23:00)
--- NOTE | 2018-01-01 23:41 | HHI.HP ---
HPI Service [facility] Primary Care Physician No Primary Care Physician Admission Diagnosis rectal bleed Diagnoses: Chief Complaint: rectal bleeding, abdominal pain Travel History International Travel<30 Days: No Contact w/Intl Traveler <30 Da: No Traveled to Known Affected Are: No History of Present Illness 52 y/o male with a history of chronic alcohol abuse, hepatitis B, hepatitis C, history of GI bleed, history of gastric ulcers, history of hypertension, history of IV drug use, history of chronic back pain. Patient states for the last few days he has had bright right blood from his rectum. He states his abdominal pain is intermittent cramping to lower umbilical area with no radiation and with associated nausea, vomiting and diarrhea, pain medication helps, eating makes it worse. He denies any recent NSAID use, he states he still drinks and his last drink was yesterday. He has tried to quit but so far has been un successful. He states he is compliant with his protonix at home. He denies any chest pain, sob, fevers or chills. Patient had a colonoscopy on December 22, 2017 and the result per GI stated Schatzki ring, Hiatal hernia, Gastritis, and Duodenal ulcer. Review of Systems Except as stated in HPI: all other systems reviewed are Neg Past Family Social History Past Medical History ETOH abuse Chronic Pancreatitis Hepatitis B and C Duodenal Ulcers Tobacco Abuse History of IV drug use Chronic back pain Rheumatoid Arthritis Steel plate status post right ankle fracture Chest tube for pneumothorax Past Surgical History Tonsillectomy EGD December 2017 Liver Biopsy Right ankle surgery Reported Medications Reported Meds & Active Scripts Active Pantoprazole (Pantoprazole Sodium) 40 Mg Tab 40 Mg PO Q12HR Chlordiazepoxide HCl 10 Mg Capsule 10 Mg PO TID take 10 mg 3x day for 3 days, then 2x day for 3 days than once daily x3 days Gaviscon Extra Strength R Liq (Aluminum Hydroxide-Mag Carb Liq) 508-475 Mg/10 Ml Susp 10-20 Ml PO QID PRN 7 Days Maximum 80 mL/24 hrs. Zofran Odt (Ondansetron Odt) 4 Mg Tab 4 Mg SL Q6HR PRN Ultram (Tramadol HCl) 50 Mg Tab 50 Mg PO Q4H PRN Protonix (Pantoprazole Sodium) 20 Mg Tab 20 Mg PO BID Reported Protonix (Pantoprazole Sodium) 20 Mg Tab 20 Mg PO TID Allergies: Coded Allergies: Penicillins (Verified Allergy, Severe, 01/01/18) prednisone (Verified Allergy, Severe, Rash, 01/01/18) Active Ordered Medications Current Medications Medications (Trade) Dose Ordered Sig/Karlos Route Start Time Stop Time Status Last Admin Sodium Chloride 1,000 ml @ 100 mls/hr Q10H IV 01/01/18 23:41 01/01/18 23:48 (NS Flush) 2 ml UNSCH PRN IV FLUSH 01/01/18 23:45 (NS Flush) 2 ml BID IV FLUSH 01/02/18 09:00 (Tylenol) 650 mg Q4H PRN PO 01/01/18 23:45 (Zofran Inj) 4 mg Q6H PRN IVP 01/01/18 23:45 (Narcan Inj) 0.4 mg UNSCH PRN IV PUSH 01/01/18 23:45 Pantoprazole Sodium 80 mg/ Sodium Chloride 100 ml @ 10 mls/hr CONTINUOUS IV 01/01/18 23:45 01/01/18 23:49 Family History DAD: diabetes and coronary artery disease Mother: anxiety. Social History Tobacco use: 1/2 PPD Alcohol use: drinks up to 1/2 gallon of vodka daily Denies any illicit drugs Physical Exam Vital Signs Vital Signs Date Time Temp Pulse Resp B/P (MAP) Pulse Ox O2 Delivery O2 Flow Rate FiO2 01/01/18 23:00 88 16 152/96 (114) 96 Room Air 01/01/18 21:07 80 16 137/87 (104) 98 Room Air 01/01/18 21:06 16 01/01/18 20:49 97 Room Air 01/01/18 19:48 16 01/01/18 19:48 79 16 154/97 (116) 95 Room Air 01/01/18 14:43 98.2 89 16 142/93 (109) 100 Physical Exam GENERAL: This is a well-nourished, well-developed patient, in mild pain. SKIN: No rashes, ecchymoses or lesions. Cool and dry. HEAD: Atraumatic. Normocephalic. EYES: Pupils equal round and reactive. Extraocular motions intact. ENT: Nose without bleeding, purulent drainage or septal hematoma. Airway patent. NECK: Trachea midline. No JVD or lymphadenopathy. Supple, nontender, no meningeal signs. CARDIOVASCULAR: Regular rate and rhythm without murmurs, gallops, or rubs. RESPIRATORY: Clear to auscultation. Breath sounds equal bilaterally. No wheezes , rales, or rhonchi. GASTROINTESTINAL: Abdomen soft, lower umbilical tenderness, nondistended. MUSCULOSKELETAL: Extremities without clubbing, cyanosis, or edema. No calf tenderness. NEUROLOGICAL: Awake and alert. Motor and sensory grossly within normal limits. Normal speech. Laboratory Laboratory Tests Test 01/01/18 17:05 01/01/18 20:20 Urine Color YELLOW Urine Turbidity CLEAR Urine pH 8.0 Urine Specific [place] 1.012 Urine Protein NEG Urine Glucose (UA) NEG Urine Ketones NEG Urine Occult Blood NEG Urine Nitrite NEG Urine Bilirubin NEG Urine Urobilinogen 2.0 Urine Leukocyte Esterase NEG Urine RBC LESS THAN 1 Urine WBC LESS THAN 1 Urine Squamous Epithelial Cells <1 Microscopic Urinalysis Comment CULT NOT INDICATED White Blood Count 6.5 Red Blood Count 3.59 Hemoglobin 11.9 Hematocrit 34.8 Mean Corpuscular Volume 97.2 Mean Corpuscular Hemoglobin 33.3 Mean Corpuscular Hemoglobin Concent 34.3 Red Cell Distribution Width 19.3 Platelet Count 304 Mean Platelet Volume 8.4 Neutrophils (%) (Auto) 77.8 Lymphocytes (%) (Auto) 14.1 Monocytes (%) (Auto) 6.9 Eosinophils (%) (Auto) 0.6 Basophils (%) (Auto) 0.6 Neutrophils # (Auto) 5.1 Lymphocytes # (Auto) 0.9 Monocytes # (Auto) 0.5 Eosinophils # (Auto) 0.0 Basophils # (Auto) 0.0 CBC Comment DIFF FINAL Differential Comment Prothrombin Time 10.6 Prothromb Time International Ratio 1.0 Blood Urea Nitrogen 8 Creatinine 0.73 Random Glucose 113 Total Protein 7.1 Albumin 3.7 Calcium Level 8.8 Alkaline Phosphatase 79 Aspartate Amino Transf (AST/SGOT) 207 Alanine Aminotransferase (ALT/SGPT) 96 Total Bilirubin 1.4 Sodium Level 138 Potassium Level 3.6 Chloride Level 101 Carbon Dioxide Level 29.1 Anion Gap 8 Estimat Glomerular Filtration Rate 113 Lipase 108 Result Diagram: 01/01/18201901/01/182019 Caprini VTE Risk Assessment Caprini VTE Risk Assessment: No/Low Risk (score <= 1) Caprini Risk Assessment Model Point Value = 1 Point Value = 2 Point Value = 3 Point Value = 5 Age 41-60 Minor surgery BMI > 25 kg/m2 Swollen legs Varicose veins or History of unexplained or recurrent spontaneous Oral contraceptives or hormone replacement Sepsis (< 1 month) Serious lung disease, including pneumonia (< 1 month) Abnormal pulmonary function Acute myocardial infarction Congestive heart failure (< 1 month) History of inflammatory bowel disease Medical patient at bed rest Age 61-74 Arthroscopic surgery Major open surgery (> 45 min) Laparoscopic surgery (> 45 min) Malignancy Confined to bed (> 72 hours) Immobilizing plaster cast Central venous access Age >= 75 History of VTE Family history of VTE Factor V Leiden Prothrombin [id number] Lupus anticoagulant Anticardiolipin antibodies Elevated serum homocysteine Heparin-induced thrombocytopenia Other congenital or acquired thrombophilia Stroke (< 1 month) Elective arthroplasty Hip, pelvis, or leg fracture Acute spinal cord injury (< 1 month) Prophylaxis Regimen Total Risk Factor Score Risk Level Prophylaxis Regimen 0-1 Low Early ambulation 2 Moderate Order ONE of the following: *Sequential Compression Device (SCD) *Heparin 5000 units SQ BID 3-4 Higher Order ONE of the following medications: *Heparin 5000 units SQ TID *Enoxaparin/Lovenox 40 mg SQ daily (WT < 150 kg, CrCl > 30 mL/min) *Enoxaparin/Lovenox 30 mg SQ daily (WT < 150 kg, CrCl > 10-29 mL/min) *Enoxaparin/Lovenox 30 mg SQ BID (WT < 150 kg, CrCl > 30 mL/min) AND/OR *Sequential Compression Device (SCD) 5 or more Highest Order ONE of the following medications: *Heparin 5000 units SQ TID (Preferred with Epidurals) *Enoxaparin/Lovenox 40 mg SQ daily (WT < 150 kg, CrCl > 30 mL/min) *Enoxaparin/Lovenox 30 mg SQ daily (WT < 150 kg, CrCl > 10-29 mL/min) *Enoxaparin/Lovenox 30 mg SQ BID (WT < 150 kg, CrCl > 30 mL/min) AND *Sequential Compression Device (SCD) Assessment and Plan Problem List: (1) Hematochezia ICD Code: K92.1 - Melena (2) Alcohol abuse ICD Code: F10.10 - Alcohol abuse, uncomplicated Assessment and Plan 52 y/o male with a history of chronic alcohol abuse, hepatitis B, hepatitis C, history of GI bleed, history of gastric ulcers, history of hypertension, history of IV drug use, history of chronic back pain. Hematochezia, Hgb 11.4, with abdominal pain, Hemoccult positive -Consult GI for recommendations -Protonix IV -NPO -Pain management with IV morphine Alcohol abuse -[facility] protocol -Seizure precautions -Encouraged to quit DVT prophylaxis: SCDs, hold chemical due to rectal bleeding Discussed Condition With Patient, RN and ED physician Lucy Cole Jan 01, 2018 23:41
[2018-01-01] MEDS ORDERED: NALOXONE HCL 0.4 MG/ML AMP IV PUSH PRN (23:45)
[2018-01-01] MEDS ORDERED: LORazepam 2 MG/ML VIAL IV PUSH ONE (23:45)
[2018-01-01] MEDS ORDERED: SODIUM CHLORIDE 0.9% FLUSH 10 ML FLUSH IV FLUSH PRN (23:45)
[2018-01-01] MEDS ORDERED: ACETAMINOPHEN 325 MG TAB PO PRN (23:45)
[2018-01-01] MEDS ORDERED: ONDANSETRON HCL 4 MG/2 ML VIAL IVP PRN (23:45)
[2018-01-01] MEDS: SODIUM CHLOR 0.9% 1000 ML INJ 1,000 ML IV SCH (23:48)
[2018-01-01] MEDS: PANTOPRAZOLE INJ 80 MG in SODIUM CHLORIDE 0.9% INJ 100 ML IV SCH (23:49)
[2018-01-02] VITALS (7 sets, daily range): BP systolic 137–189; BP diastolic 90–105; PULSE 56–100; RESP 18–24; TEMP 97.8–98.2; O2SAT 94–99
[2018-01-02] MEDS ORDERED: LORazepam 2 MG/ML VIAL IV PUSH PRN ×3 (01:00)
[2018-01-02] MEDS ORDERED: FLUMAZENIL 0.5 MG/5 ML VIAL IV PUSH PRN (01:00)
[2018-01-02] MEDS ORDERED: LORazepam 2 MG TAB PO PRN (01:00)
[2018-01-02] MEDS ORDERED: ALUMINUM/MAGNESIUM/SIMETH 30 ML CUP PO PRN (01:00)
[2018-01-02] MEDS: SODIUM CHLORIDE 0.9% FLUSH 10 ML FLUSH IV FLUSH SCH ×2 (04:39→21:00)
[2018-01-02] MEDS: MORPHINE SULFATE 2 MG/ML SYRINGE IV PUSH PRN ×6 (04:40→21:52)
[2018-01-02] MEDS: PANTOPRAZOLE INJ 80 MG in SODIUM CHLORIDE 0.9% INJ 100 ML IV SCH (08:31)
[2018-01-02] MEDS: SODIUM CHLOR 0.9% 1000 ML INJ 1,000 ML IV SCH ×2 (08:33→19:41)
[2018-01-02 09:58] LABS: AUTOMATED NEUTROPHIL # 5.1 TH/MM3 (1.8-7.7); BASOPHIL # 0.1 TH/MM3 (0-0.2); BASOPHIL % 0.8 % (0.0-2.0); EOSINOPHIL # 0.1 TH/MM3 (0-0.4); EOSINOPHIL % 1.4 % (0.0-4.0); HEMATOCRIT 37.1 % (39.0-51.0); HEMOGLOBIN 12.6 GM/DL (13.0-17.0); LYMPH % 14.6 % (9.0-44.0); MEAN CELL VOLUME 96.7 FL (80.0-100.0); MEAN CORPUSCULAR HEMOGLOBIN 32.9 PG (27.0-34.0); MEAN PLATELET VOLUME 7.6 FL (7.0-11.0); MONO % 6.3 % (0.0-8.0); MONOCYTE # 0.4 TH/MM3 (0-0.9); NEUT % 76.9 % (16.0-70.0); PLATELET COUNT 240 TH/MM3 (150-450); RED BLOOD COUNT 3.84 MIL/MM3 (4.50-5.90); RED CELL DISTRIBUTION WIDTH 19.1 % (11.6-17.2); WHITE BLOOD COUNT 6.6 TH/MM3 (4.0-11.0)
[2018-01-02 10:08] LABS: CALCIUM 8.6 MG/DL (8.5-10.1); CREATININE 0.57 MG/DL (0.60-1.30)
--- NOTE | 2018-01-02 10:09 | PD.CONS ---
HPI History of Present Illness This is a 52 year old male with hx hep B, hep C, etoh abuse, IVDU, bleeding gastric ulcer who presented to ER for rectal bleeding. Onset 4 days ago, bright red rectal bleeding. He also endorses n/v. He went to and had EGD 12/22/17 with finding hiatal hernia, schatzki ring, duodenal ulcer, bx benign. Subsequently he developed abd pain and cramping and recurrence of the rectal bleeding. He has never had a colonoscopy. He never had complete treatment for hep C. (Rubi Ash) PFSH Past Medical History ETOH abuse Chronic Pancreatitis Hepatitis B and C Duodenal Ulcers Tobacco Abuse History of IV drug use Chronic back pain Rheumatoid Arthritis Steel plate status post right ankle fracture Chest tube for pneumothorax Past Surgical History Tonsillectomy EGD December 2017 Liver Biopsy Right ankle surgery (Rubi Ash) Coded Allergies: Penicillins (Verified Allergy, Severe, 01/01/18) prednisone (Verified Allergy, Severe, Rash, 01/01/18) Family History DAD: diabetes and coronary artery disease Mother: anxiety. Social History Tobacco use: 1/2 PPD Alcohol use: drinks up to 1/2 gallon of vodka daily Denies any illicit drugs, former IVDU (Rubi Ash) Review of Systems Constitutional: DENIES: Fever Endocrine: DENIES: Polydipsia Eyes: DENIES: Blurred vision Ears, nose, mouth, throat: DENIES: Hearing loss Respiratory: DENIES: Wheezing Cardiovascular: DENIES: Chest pain Gastrointestinal: COMPLAINS OF: Abdominal pain, Bloody stools, Diarrhea, Nausea , Vomiting, DENIES: Black stools Genitourinary: DENIES: Hematuria Musculoskeletal: DENIES: Joint pain Integumentary: COMPLAINS OF: Jaundice Hematologic/lymphatic: DENIES: Bruising Immunologic/allergic: DENIES: Eczema Neurologic: DENIES: Abnormal gait Psychiatric: DENIES: Confusion (Rubi Ash) GI Exam Vitals I&O Vital Signs Date Time Temp Pulse Resp B/P (MAP) Pulse Ox O2 Delivery O2 Flow Rate FiO2 01/02/18 08:39 97.8 100 18 148/99 (115) 95 01/02/18 06:38 18 01/02/18 04:38 98.0 95 20 168/103 (124) 97 01/02/18 02:04 01/02/18 01:10 98.2 84 18 152/99 (116) 94 01/01/18 23:00 88 16 152/96 (114) 96 Room Air 01/01/18 21:07 80 16 137/87 (104) 98 Room Air 01/01/18 21:06 16 01/01/18 20:49 97 Room Air 01/01/18 19:48 16 01/01/18 19:48 79 16 154/97 (116) 95 Room Air 01/01/18 14:43 98.2 89 16 142/93 (109) 100 I/O 01/01/18 01/01/18 01/01/18 01/02/18 01/02/18 01/02/18 07:00 15:00 23:00 07:00 15:00 23:00 Intake Total 1000 ml Balance 1000 ml Intake IV Total 1000 ml Laboratory Test 01/01/18 17:05 01/01/18 20:20 01/02/18 09:26 Urine Color YELLOW Urine Turbidity CLEAR Urine pH 8.0 Urine Specific [place] 1.012 Urine Protein NEG mg/dL Urine Glucose (UA) NEG mg/dL Urine Ketones NEG mg/dL Urine Occult Blood NEG Urine Nitrite NEG Urine Bilirubin NEG Urine Urobilinogen 2.0 MG/DL Urine Leukocyte Esterase NEG Urine RBC LESS THAN 1 /hpf Urine WBC LESS THAN 1 /hpf Urine Squamous Epithelial Cells <1 /hpf Microscopic Urinalysis Comment CULT NOT INDICATED White Blood Count 6.5 TH/MM3 Red Blood Count 3.59 MIL/MM3 Hemoglobin 11.9 GM/DL Hematocrit 34.8 % Mean Corpuscular Volume 97.2 FL Mean Corpuscular Hemoglobin 33.3 PG Mean Corpuscular Hemoglobin Concent 34.3 % Red Cell Distribution Width 19.3 % Platelet Count 304 TH/MM3 Mean Platelet Volume 8.4 FL Neutrophils (%) (Auto) 77.8 % Lymphocytes (%) (Auto) 14.1 % Monocytes (%) (Auto) 6.9 % Eosinophils (%) (Auto) 0.6 % Basophils (%) (Auto) 0.6 % Neutrophils # (Auto) 5.1 TH/MM3 Lymphocytes # (Auto) 0.9 TH/MM3 Monocytes # (Auto) 0.5 TH/MM3 Eosinophils # (Auto) 0.0 TH/MM3 Basophils # (Auto) 0.0 TH/MM3 CBC Comment DIFF FINAL Differential Comment Prothrombin Time 10.6 SEC Prothromb Time International Ratio 1.0 RATIO Blood Urea Nitrogen 8 MG/DL Creatinine 0.73 MG/DL Random Glucose 113 MG/DL Total Protein 7.1 GM/DL Albumin 3.7 GM/DL Calcium Level 8.8 MG/DL Alkaline Phosphatase 79 U/L Aspartate Amino Transf (AST/SGOT) 207 U/L Alanine Aminotransferase (ALT/SGPT) 96 U/L Total Bilirubin 1.4 MG/DL Sodium Level 138 MEQ/L Potassium Level 3.6 MEQ/L Chloride Level 101 MEQ/L Carbon Dioxide Level 29.1 MEQ/L Anion Gap 8 MEQ/L Estimat Glomerular Filtration Rate 113 ML/MIN Lipase 108 U/L Physical Examination HEENT: PERRL; normocephalic; atraumatic; no jaundice. CHEST: wheezes CARDIAC: RRR ABDOMEN: Soft, nondistended, TTP lower quadrants; + hepatomegaly; bowel sounds are present in all four quadrants. EXTREMITIES: No clubbing, cyanosis, or edema. SKIN: Normal; no rash; no jaundice. CAN CUTTER: No focal deficits; alert and oriented times three. (Rubi Ash) Assessment and Plan Plan ASSESSMENT - rectal bleeding, n/v, abd pain - unclear etiology. had EGD 12/22/17 hiatal hernia, schatzki ring, duodenal ulcer bx benign. - anemia - mild, hgb 11.9 on admission, improved today. normocytic, 2/2 above - hx hep c, b - hep c genotype 1a - elevated LFTs - etoh, hep c and b PLAN - full liquids - CT abd - EGD and colonoscopy friday - clears liquids Friday - NPO after MN friday night - obtain consent - CEA, AFP - watch for DTs - monitor HH - transfuse as needed - further recs to follow - outpt tx for hep c pt seen by myself and Dr Beltran and this note is on his behalf (Rubi Ash) Plan Patient was seen and examined, agree with above note, we will check for tumor markers,: EGD on Friday (Daniel Beltran MD) Rubi Ash Jan 02, 2018 10:09 Daniel Beltran MD Jan 02, 2018 17:09
[2018-01-02] MEDS ORDERED: DIATRIZOATE MEGLUM/DIATRIZOATE SOD 9 ML CUP PO ONE (10:45)
[2018-01-02] MEDS: LORazepam 1 MG TAB PO PRN (12:27)
[2018-01-02] MEDS ORDERED: IOHEXOL 350 MG/ML 10 ML VIAL (for RAD DIAG) IVCONTRAST ONE (13:34)
--- NOTE | 2018-01-02 14:04 | RADRPT ---
EXAM DATE/TIME: 01/02/2018 13:34 [place] COMPARISON: CT ABDOMEN & PELVIS W CONTRAST, April 13, 2017, 9:16. INDICATIONS : Abdominal pain. IV CONTRAST: 97 cc Omnipaque 350 (iohexol) IV ORAL CONTRAST: Prescribed oral contrast ingested. RADIATION DOSE: 8.16 CTDIvol (mGy) MEDICAL HISTORY : Pancreatitis. Hypertension. Methicillin-resistant Staphylococcus aureus.Hepatitis B&C, Cirrhosis, SURGICAL HISTORY : Chest tube, liver biopsy. ENCOUNTER: Initial ACUITY: 1 day PAIN SCALE: 6/10 LOCATION: Bilateral Abdomen TECHNIQUE: Volumetric scanning of the abdomen and pelvis was performed. Using automated exposure control and ad justment of the mA and/or kV according to patient size, radiation dose was kept as low as reasonably achievable to obtain optimal diagnostic quality images. DICOM format image data is available electro nically for review and comparison. FINDINGS: LOWER LUNGS: The visualized lower lungs are clear. LIVER: Slight fatty infiltration liver is again noted. No focal mass is noted. There is no dilation of the biliary tree. No calcified gallstones. SPLEEN: Normal size without lesion. PANCREAS: Within normal limits. KIDNEYS: Normal in size and shape. There is no mass, stone or hydronephrosis. ADRENAL GLANDS: Within normal limits. VASCULAR: There is no aortic aneurysm. BOWEL/MESENTERY: There is diffuse wall thickening involving the splenic flexure and descending colon as well as doug lic inflammatory changes consistent with acute colitis. Clinical correlation is recommended. ABDOMINAL WALL: Within normal limits. RETROPERITONEUM: There is no lymphadenopathy. BLADDER: No wall thickening or mass. REPRODUCTIVE: The prostate gland is enlarged and demonstrates central calcifications. INGUINAL: There is no lymphadenopathy or hernia. MUSCULOSKELETAL: Degenerative changes and scoliosis of the lumbar spine are noted. CONCLUSION: 1. Diffuse wall thickening involving the splenic flexure and descending colon as well as pericolic in flammatory changes consistent with acute colitis. Clinical correlation is recommended. 2. Degenerative changes and scoliosis of the lumbar spine. 3. Enlarged prostate with central calcifications. 4. Slightly fatty liver. Faizan Milian MD on January 02, 2018 at 13:57 Board Certified Radiologist. This report was verified electronically.
[2018-01-02] MEDS: LORazepam 2 MG/ML VIAL IV PUSH PRN ×2 (16:45→22:54)
[2018-01-02] MEDS: CIPROFLOXACIN 400 MG PREMIX 200 ML IV SCH (16:46)
[2018-01-02] MEDS ORDERED: cloNIDine HCL 0.1 MG TAB PO PRN (17:30)
--- NOTE | 2018-01-02 17:30 | HHI.PR ---
Subjective Remarks The patient complains of abdominal pain and nausea. Denies vomiting. Patient denies fevers or chills. Blood pressure noted to be persistently elevated. Objective Vitals Vital Signs Date Time Temp Pulse Resp B/P (MAP) Pulse Ox O2 Delivery O2 Flow Rate FiO2 01/02/18 15:31 98.0 89 18 189/105 (133) 99 01/02/18 11:24 98.0 56 18 147/97 (114) 96 01/02/18 08:39 97.8 100 18 148/99 (115) 95 01/02/18 06:38 18 01/02/18 04:38 98.0 95 20 168/103 (124) 97 01/02/18 02:04 01/02/18 01:10 98.2 84 18 152/99 (116) 94 01/01/18 23:00 88 16 152/96 (114) 96 Room Air 01/01/18 21:07 80 16 137/87 (104) 98 Room Air 01/01/18 21:06 16 01/01/18 20:49 97 Room Air 01/01/18 19:48 16 01/01/18 19:48 79 16 154/97 (116) 95 Room Air I/O 01/01/18 01/01/18 01/01/18 01/02/18 01/02/18 01/02/18 07:00 15:00 23:00 07:00 15:00 23:00 Intake Total 1000 ml Balance 1000 ml Intake IV Total 1000 ml Result Diagram: 01/02/18 0926 01/02/18 0926 Imaging Last Impressions Abdomen/Pelvis CT 01/02/18 0000 Signed Impressions: Service Date/Time: Tuesday, January 02, 2018 13:34 - CONCLUSION: 1. Diffuse wall thickening involving the splenic flexure and descending colon as well as pericolic inflammatory changes consistent with acute colitis. Clinical correlation is recommended. 2. Degenerative changes and scoliosis of the lumbar spine. 3. Enlarged prostate with central calcifications. 4. Slightly fatty liver. Faizan Milian MD Objective Remarks AAox3 Clear lungs BL abdomen is soft, tenderness to palpation over right side of the abdomen no edema in lower extremities Medications and IVs Current Medications Medications (Trade) Dose Ordered Sig/Karlos Route Start Time Stop Time Status Last Admin Sodium Chloride 1,000 ml @ 100 mls/hr Q10H IV 01/01/18 23:41 01/02/18 08:33 (NS Flush) 2 ml UNSCH PRN IV FLUSH 01/01/18 23:45 (NS Flush) 2 ml BID IV FLUSH 01/02/18 09:00 01/02/18 04:39 (Tylenol) 650 mg Q4H PRN PO 01/01/18 23:45 (Zofran Inj) 4 mg Q6H PRN IVP 01/01/18 23:45 (Narcan Inj) 0.4 mg UNSCH PRN IV PUSH 01/01/18 23:45 Pantoprazole Sodium 80 mg/ Sodium Chloride 100 ml @ 10 mls/hr CONTINUOUS IV 01/01/18 23:45 01/02/18 08:31 (Romazicon Inj) 0.2 mg Q1M PRN IV PUSH 01/02/18 01:00 (Ativan) 1 mg Q4H PRN PO 01/02/18 01:00 01/02/18 12:27 (Ativan Inj) 1 mg Q4H PRN IV PUSH 01/02/18 01:00 01/02/18 16:45 (Ativan) 2 mg Q2H PRN PO 01/02/18 01:00 (Ativan Inj) 2 mg Q2H PRN IV PUSH 01/02/18 01:00 (Ativan Inj) 2 mg Q1H PRN IV PUSH 01/02/18 01:00 (Ativan Inj) 2 mg Q15M PRN IV PUSH 01/02/18 01:00 (Morphine Inj) 2 mg Q3H PRN IV PUSH 01/02/18 01:00 01/02/18 14:42 (Mag-Al Plus Susp Liq) 20 ml QID PRN PO 01/02/18 01:00 (Colyte Liq) 4,000 ml ONCE ONCE PO 01/04/18 16:00 01/04/18 16:01 Ciprofloxacin/ Dextrose 200 ml @ 200 mls/hr Q8H IV 01/02/18 16:00 01/02/18 16:46 Metronidazole 100 ml @ 100 mls/hr Q6H IV 01/02/18 17:00 A/P Problem List: (1) Hematochezia ICD Code: K92.1 - Melena (2) Alcohol abuse ICD Code: F10.10 - Alcohol abuse, uncomplicated (3) Colitis ICD Code: K52.9 - Noninfective gastroenteritis and colitis, unspecified Assessment and Plan 52 y/o male with a history of chronic alcohol abuse, hepatitis B, hepatitis C, history of GI bleed, history of gastric ulcers, history of hypertension, history of IV drug use, history of chronic back pain. Hematochezia, Hgb 11.4, with abdominal pain, Hemoccult positive -Protonix IV -NPO -Pain management with IV morphine -01/02 for consultation recommendations noted. EGD and colonoscopy Friday. Patient placed on full liquids. CT abdomen and pelvis shows colitis. I will start the patient IV ciprofloxacin and IV Flagyl. Alcohol abuse -CIWA protocol -Seizure precautions -Encouraged to quit DVT prophylaxis: SCDs, hold chemical due to rectal bleeding Bryce Medina MD Jan 02, 2018 17:30
[2018-01-02] MEDS: metroNIDAZOLE 500 MG INJ 100 ML IV SCH ×2 (17:51→22:54)
[2018-01-03] VITALS (7 sets, daily range): BP systolic 112–138; BP diastolic 70–92; PULSE 70–92; RESP 18–20; TEMP 95.5–98.4; O2SAT 96–100
[2018-01-03] MEDS: CIPROFLOXACIN 400 MG PREMIX 200 ML IV SCH ×3 (00:46→15:49)
[2018-01-03] MEDS: MORPHINE SULFATE 2 MG/ML SYRINGE IV PUSH PRN ×6 (00:47→23:15)
[2018-01-03] MEDS: metroNIDAZOLE 500 MG INJ 100 ML IV SCH ×4 (04:23→23:15)
[2018-01-03] MEDS: LORazepam 2 MG/ML VIAL IV PUSH PRN (04:23)
[2018-01-03] MEDS: SODIUM CHLOR 0.9% 1000 ML INJ 1,000 ML IV SCH ×2 (05:41→15:53)
[2018-01-03 06:12] LABS: CARCINOEMBRYONIC ANTIGEN 4.5 NG/ML (0.2-5.0)
[2018-01-03] MEDS: SODIUM CHLORIDE 0.9% FLUSH 10 ML FLUSH IV FLUSH SCH ×2 (09:00→23:14)
[2018-01-03] MEDS: PANTOPRAZOLE INJ 80 MG in SODIUM CHLORIDE 0.9% INJ 100 ML IV SCH ×2 (09:12→18:15)
--- NOTE | 2018-01-03 09:52 | HHI.GIFU ---
Subjective Remarks Pt resting in bed. abd cramping, bloody stool unchanged. asking for food. (Rubi Ash) Objective Vitals I&O Vital Signs Date Time Temp Pulse Resp B/P (MAP) Pulse Ox O2 Delivery O2 Flow Rate FiO2 01/03/18 09:10 98.0 78 18 117/82 (94) 96 01/03/18 04:04 98.4 78 18 112/82 (92) 97 01/03/18 00:30 98.2 92 18 138/92 (107) 96 01/02/18 19:56 98.1 96 18 146/90 (108) 99 01/02/18 18:21 95 24 137/100 (112) 97 01/02/18 15:31 98.0 89 18 189/105 (133) 99 01/02/18 11:24 98.0 56 18 147/97 (114) 96 I/O 01/02/18 01/02/18 01/02/18 01/03/18 01/03/18 01/03/18 07:00 15:00 23:00 07:00 15:00 23:00 Output Total 1200 ml Balance -1200 ml Output Urine Total 1200 ml # Voids 4 # Bowel Movements 3 Laboratory Laboratory Tests Test 01/03/18 04:32 Tumor Marker Alpha Fetoprotein 2.6 Carcinoembryonic Antigen 4.5 Imaging Last Impressions Abdomen/Pelvis CT 01/02/18 0000 Signed Impressions: Service Date/Time: Tuesday, January 02, 2018 13:34 - CONCLUSION: 1. Diffuse wall thickening involving the splenic flexure and descending colon as well as pericolic inflammatory changes consistent with acute colitis. Clinical correlation is recommended. 2. Degenerative changes and scoliosis of the lumbar spine. 3. Enlarged prostate with central calcifications. 4. Slightly fatty liver. Faizan Milian MD Physical Exam HEENT: PERRL; normocephalic; atraumatic; no jaundice. CHEST: CTA CARDIAC: RRR ABDOMEN: Soft, nondistended, TTP lower quadrants; no hepatosplenomegaly; bowel sounds are present in all four quadrants. EXTREMITIES: No clubbing, cyanosis, or edema. SKIN: Normal; no rash; no jaundice. COAGULATION OPERATOR: No focal deficits; alert and oriented times three. (Rubi Ash) Assessment and Plan Plan ASSESSMENT - rectal bleeding, n/v, abd pain - unclear etiology. had EGD 12/22/17 hiatal hernia, schatzki ring, duodenal ulcer bx benign. - anemia - mild, hgb 11.9 on admission, improved today. normocytic, 2/2 above - hx hep c, b - hep c genotype 1a - elevated LFTs - etoh, hep c and b 01/03/[address] showed colitis. HH is stable. tolerating full liquids. tumor markers not elevated. PLAN - stool studies - Soft diet today - EGD and colonoscopy friday - clear liquids Friday - NPO after MN friday night - watch for DTs - monitor HH - transfuse as needed - outpt tx for hep c pt seen by myself and Dr Beltran and this note is on his behalf (Rubi Ash) Plan Patient was seen and examined, agree with above note, colitis on CT scan, plan: EGD on Friday, check stool studies, diet as tolerated (Daneil Beltran MD) Rubi Ash Jan 03, 2018 09:52 Daniel Beltran MD Jan 03, 2018 11:54
[2018-01-03] MEDS: LORazepam 1 MG TAB PO PRN ×3 (11:35→23:14)
--- NOTE | 2018-01-03 11:48 | HHI.PR ---
Subjective Remarks in no acute distress. has mild lower abdominal pain. still with blood in the stool. Objective Vitals Vital Signs Date Time Temp Pulse Resp B/P (MAP) Pulse Ox O2 Delivery O2 Flow Rate FiO2 01/03/18 09:10 98.0 78 18 117/82 (94) 96 01/03/18 04:04 98.4 78 18 112/82 (92) 97 01/03/18 00:30 98.2 92 18 138/92 (107) 96 01/02/18 19:56 98.1 96 18 146/90 (108) 99 01/02/18 18:21 95 24 137/100 (112) 97 01/02/18 15:31 98.0 89 18 189/105 (133) 99 I/O 01/02/18 01/02/18 01/02/18 01/03/18 01/03/18 01/03/18 07:00 15:00 23:00 07:00 15:00 23:00 Output Total 1200 ml Balance -1200 ml Output Urine Total 1200 ml # Voids 4 # Bowel Movements 3 Result Diagram: 01/02/18 0926 01/02/18 0926 Imaging Last Impressions Abdomen/Pelvis CT 01/02/18 0000 Signed Impressions: Service Date/Time: Tuesday, January 02, 2018 13:34 - CONCLUSION: 1. Diffuse wall thickening involving the splenic flexure and descending colon as well as pericolic inflammatory changes consistent with acute colitis. Clinical correlation is recommended. 2. Degenerative changes and scoliosis of the lumbar spine. 3. Enlarged prostate with central calcifications. 4. Slightly fatty liver. Faizan Milian MD Objective Remarks GENERAL: This is a well-nourished, well-developed patient, in no apparent distress. CARDIOVASCULAR: Regular rate and regular rhythm without murmurs, gallops, or rubs. RESPIRATORY: Clear to auscultation. Breath sounds equal bilaterally. No wheezes , rales, or rhonchi. GASTROINTESTINAL: Abdomen soft,mild lower abdominal tenderness, nondistended. Normal, active bowel sounds MUSCULOSKELETAL: Extremities without clubbing, cyanosis, or edema. NEURO: Alert & Oriented x4 to person, place, time, situation. Moves all ext x4 Medications and IVs Inpatient Medications Acetaminophen (Tylenol) 650 mg Q4H PRN PO TEMP > 100.4; Start 01/01/18 at 23:45 Al Hydrox/Mg Hydrox/Simethicone (Mag-Al Plus Susp Liq) 20 ml QID PRN PO HEARTBURN; Start 01/02/18 at 01:00 Ciprofloxacin/ Dextrose 200 ml @ 200 mls/hr Q8H IV Last administered on at 09:12; Start 01/02/18 at 16:00 Clonidine (Catapres) 0.1 mg Q6H PRN PO SYS BP GREATER THAN 160 MMHG; Start at 17:30 Diatrizoate Meglum/ Diatrizoate Sod ( Gastroview Liq) 18 ml ONCE ONCE PO Last administered on 01/02/18at 11:34; Start 01/02/18 at 10:45; Stop 01/02/18 at 10:46; Status DC Flumazenil (Romazicon Inj) 0.2 mg Q1M PRN IV PUSH SEE LABEL COMMENTS; Start at 01:00 Lorazepam (Ativan Inj) 2 mg Q15M PRN IV PUSH CIWA > 20; Start 01/02/18 at 01:00 Lorazepam (Ativan) 2 mg Q2H PRN PO CIWA 11-14; Start 01/02/18 at 01:00 Metronidazole 100 ml @ 100 mls/hr Q6H IV Last administered on 01/03/18at 11:35 ; Start 01/02/18 at 17:00 Morphine Sulfate (Morphine Inj) 2 mg Q3H PRN IV PUSH pain>5 Last administered on 01/03/18at 09:19; Start 01/02/18 at 01:00 Naloxone HCl (Narcan Inj) 0.4 mg UNSCH PRN IV PUSH SEE LABEL COMMENTS; Start at 23:45 Ondansetron HCl (Zofran Inj) 4 mg Q6H PRN IVP NAUSEA OR VOMITING; Start at 23:45 Pantoprazole Sodium (Protonix Inj) 40 mg ONCE ONCE IV PUSH Last administered on 01/01/18at 21:01; Start 01/01/18 at 21:00; Stop 01/01/18 at 21:01; Status DC Pantoprazole Sodium 80 mg/ Sodium Chloride 100 ml @ 10 mls/hr Q10H IV Last administered on 01/03/18at 09:12; Start 01/03/18 at 08:15 Polyethylene Glycol/ Electrolytes (Colyte Liq) 4,000 ml ONCE ONCE PO ; Start at 16:00; Stop 01/04/18 at 16:01 Sodium Chloride (NS Flush) 2 ml BID IV FLUSH Last administered on 01/02/18at 04: 39; Start 01/02/18 at 09:00 A/P Problem List: (1) Hematochezia ICD Code: K92.1 - Melena (2) Alcohol abuse ICD Code: F10.10 - Alcohol abuse, uncomplicated (3) Colitis ICD Code: K52.9 - Noninfective gastroenteritis and colitis, unspecified Assessment and Plan Hematochezia, Hgb 11.4, with abdominal pain, Hemoccult positive Colitis -continue with Antibiotics and pain control. - GI following and plan for EGD/ colonoscopy on Friday. - continue PPI - will monitor H/H. Alcohol abuse -[facility] protocol -Seizure precautions -Encouraged to quit Discharge Planning when GI work-up completed. Luis Armando Maher MD Jan 03, 2018 11:48
[2018-01-04] MEDS: CIPROFLOXACIN 400 MG PREMIX 200 ML IV SCH ×3 (00:33→16:14)
[2018-01-04] MEDS: ZOLPIDEM TARTRATE 5 MG TAB PO PRN ×2 (00:33→23:20)
[2018-01-04] MEDS: SODIUM CHLOR 0.9% 1000 ML INJ 1,000 ML IV SCH ×2 (01:41→12:57)
[2018-01-04 03:17] VITALS: BP 113/74; PULSE 72; RESP 18; TEMP 98.4; O2SAT 96
[2018-01-04] MEDS: PANTOPRAZOLE INJ 80 MG in SODIUM CHLORIDE 0.9% INJ 100 ML IV SCH ×2 (04:15→14:24)
[2018-01-04] MEDS: MORPHINE SULFATE 2 MG/ML SYRINGE IV PUSH PRN ×6 (04:50→23:21)
[2018-01-04] MEDS: metroNIDAZOLE 500 MG INJ 100 ML IV SCH ×4 (04:50→23:18)
[2018-01-04 07:36] VITALS: BP_SYST 128; BP_SYST 133; BP_DIAS 68; BP_DIAS 80; PULSE 75; PULSE 80; RESP 18; TEMP 97.9; O2SAT 86; O2SAT 98
[2018-01-04] MEDS: SODIUM CHLORIDE 0.9% FLUSH 10 ML FLUSH IV FLUSH SCH ×2 (09:00→20:01)
[2018-01-04] MEDS: LORazepam 1 MG TAB PO PRN ×3 (09:10→20:03)
--- NOTE | 2018-01-04 09:27 | HHI.GIFU ---
Subjective Remarks Pt is resting in bed, EG/colonoscopy planned for tomorrow, Denies bleeding or diarrhea today, still with abd pain, inquiring about pain meds (Luz Marina Ortiz) Objective Vitals I&O Vital Signs Date Time Temp Pulse Resp B/P (MAP) Pulse Ox O2 Delivery O2 Flow Rate FiO2 01/04/18 07:36 97.9 75 18 133/80 (97) 86 01/04/18 03:17 98.4 72 18 113/74 (87) 96 01/03/18 23:55 98.2 72 18 129/85 (100) 98 01/03/18 20:03 98.0 75 18 135/84 (101) 100 01/03/18 16:00 97.1 70 20 115/70 (85) 99 01/03/18 12:00 95.5 72 20 114/77 (89) 98 I/O 01/03/18 01/03/18 01/03/18 01/04/18 01/04/18 01/04/18 07:00 15:00 23:00 07:00 15:00 23:00 Output Total 1200 ml 1000 ml 350 ml Balance -1200 ml -1000 ml -350 ml Output Urine Total 1200 ml 1000 ml 350 ml # Voids 4 # Bowel Movements 2 Imaging Last Impressions Abdomen/Pelvis CT 01/02/18 0000 Signed Impressions: Service Date/Time: Tuesday, January 02, 2018 13:34 - CONCLUSION: 1. Diffuse wall thickening involving the splenic flexure and descending colon as well as pericolic inflammatory changes consistent with acute colitis. Clinical correlation is recommended. 2. Degenerative changes and scoliosis of the lumbar spine. 3. Enlarged prostate with central calcifications. 4. Slightly fatty liver. Faizan Milian MD Physical Exam HEENT: PERRL; normocephalic; atraumatic; no jaundice. CHEST: CTA CARDIAC: RRR ABDOMEN: Soft, nondistended, TTP lower quadrants; no hepatosplenomegaly; bowel sounds are present in all four quadrants. EXTREMITIES: No clubbing, cyanosis, or edema. SKIN: Normal; no rash; no jaundice. SLASHER TENDER: No focal deficits; alert and oriented times three. (Luz Marina Ortiz) Assessment and Plan Plan ASSESSMENT - rectal bleeding, n/v, abd pain - unclear etiology. had EGD 12/22/17 hiatal hernia, schatzki ring, duodenal ulcer bx benign. - anemia - mild, hgb 11.9 on admission, improved today. normocytic, 2/2 above - hx hep c, b - hep c genotype 1a - elevated LFTs - etoh, hep c and b 01/03/[address] showed colitis. HH is stable. tolerating full liquids. tumor markers not elevated. 01/04/18 no bleeding today, still with abd pain, HH stable, EGD/colonoscopy planned for tomorrow PLAN - Await stool studies - clear liquids - EGD and colonoscopy tomorrow - Golytely today - NPO after MN - watch for DTs - monitor HH - transfuse as needed - outpt tx for hep c and hep- B pt seen by myself and Dr Beltran and this note is on his behalf (Luz Marina Ortiz) Plan Patient was seen and examined, agree with above note,: EGD tomorrow, further plan depends on the findings on the procedures and the results from the stool studies, outpatient follow-up of hepatitis C and B (Daniel Beltran MD) Luz Marina Ortiz Jan 04, 2018 09:27 Daniel Beltran MD Jan 04, 2018 13:46
--- NOTE | 2018-01-04 10:19 | HHI.PR ---
Subjective Remarks Follow-up visit chronic EtOH abuse, hepatitis B, hepatitis C, history of GI bleed, history of gastric ulcers, history of HTN, history of IVDA, history of chronic back pain. Patient seen and examined today sitting in bed. Reports he continues to have bright red stools last night and this morning, small to moderate amount. Patient asking what can resolve the problem. Discussed with him EtOH is a major contributor to his problems. States that he wanted to really quit. States that he quit before cold turkey and he had a seizure. He states he has been having the urge to sign out AMA but he thinks about what is going to happen to him. Requesting for decrease of Ativan secondary to getting severely anxious. Discussed with patient will start Librium instead and keep his Ativan as it is for the CIWA Protocol. Objective Vitals Vital Signs Date Time Temp Pulse Resp B/P (MAP) Pulse Ox O2 Delivery O2 Flow Rate FiO2 01/04/18 07:36 97.9 75 18 133/80 (97) 86 01/04/18 03:17 98.4 72 18 113/74 (87) 96 01/03/18 23:55 98.2 72 18 129/85 (100) 98 01/03/18 20:03 98.0 75 18 135/84 (101) 100 01/03/18 16:00 97.1 70 20 115/70 (85) 99 01/03/18 12:00 95.5 72 20 114/77 (89) 98 I/O 01/03/18 01/03/18 01/03/18 01/04/18 01/04/18 01/04/18 07:00 15:00 23:00 07:00 15:00 23:00 Output Total 1200 ml 1000 ml 350 ml Balance -1200 ml -1000 ml -350 ml Output Urine Total 1200 ml 1000 ml 350 ml # Voids 4 # Bowel Movements 2 Result Diagram: 01/02/18 0926 01/02/18925 Imaging Last Impressions Abdomen/Pelvis CT 01/02/18 0000 Signed Impressions: Service Date/Time: Tuesday, January 02, 2018 13:34 - CONCLUSION: 1. Diffuse wall thickening involving the splenic flexure and descending colon as well as pericolic inflammatory changes consistent with acute colitis. Clinical correlation is recommended. 2. Degenerative changes and scoliosis of the lumbar spine. 3. Enlarged prostate with central calcifications. 4. Slightly fatty liver. Faizan Milian MD Objective Remarks GENERAL: This is a well-nourished, well-developed patient, in no apparent distress. SKIN: Warm and dry. HEENT: Normocephalic. Pupils equal round and reactive. Nose without bleeding. Airway patent. NECK: Trachea midline. CARDIOVASCULAR: Regular rate and rhythm without murmurs, gallops, or rubs. RESPIRATORY: Clear to auscultation. Breath sounds equal bilaterally. No wheezes , rales, or rhonchi. GASTROINTESTINAL: Abdomen soft, non-tender, nondistended. Bowel Sounds normoactive x4. MUSCULOSKELETAL: Extremities without clubbing, cyanosis, or edema. No tremors noted. NEUROLOGICAL: Awake and alert. Oriented to time, place, person. No focal neuro deficit. Moves all extremities. Normal speech. A/P Problem List: (1) Hematochezia ICD Code: K92.1 - Melena (2) Alcohol abuse ICD Code: F10.10 - Alcohol abuse, uncomplicated (3) Colitis ICD Code: K52.9 - Noninfective gastroenteritis and colitis, unspecified Assessment and Plan 52 y/o male with a history of chronic alcohol abuse, hepatitis B, hepatitis C, history of GI bleed, history of gastric ulcers, history of hypertension, history of IV drug use, history of chronic back pain. Hematochezia, Hgb 11.4, with abdominal pain, Hemoccult positive -Consult GI for recommendations. Plan for EGD colonoscopy tomorrow. -Continue Protonix -Continue IV antibiotics Cipro, Flagyl -Pain management with IV morphine -Trend H&H. Current H&H stable. Alcohol abuse -[facility] protocol -Seizure precautions -Encouraged to quit. Refer to Theo Carter when discharged. -Start Librium 3 times daily 10 mg DVT prophylaxis: SCDs, hold chemical due to rectal bleeding Discharge Planning Plan for DC home when cleared by GI. Susan Bustillo AV SPECIALIST Jan 04, 2018 10:19
[2018-01-04 11:48] VITALS: BP 128/68; PULSE 70; RESP 20; TEMP 98.2; O2SAT 98
[2018-01-04] MEDS ORDERED: PEG (High)/E-LYTE SOLN 4000 ML BTL PO ONE (16:00)
[2018-01-04 17:40] VITALS: BP 130/90; PULSE 68; RESP 20; TEMP 98.2; O2SAT 96
[2018-01-04] MEDS ORDERED: CHLORHEXIDINE GLUCONATE 2 % 1 PACK (2 CLOTHS) TOPICAL PRN (20:00)
[2018-01-04] MEDS ORDERED: METOPROLOL TARTRATE 25 MG TAB PO PRN (20:00)
[2018-01-04] MEDS ORDERED: SODIUM CHLORID 0.9% 500 ML IV PRN (20:00)
[2018-01-04] MEDS ORDERED: INSULIN HUMAN REGULAR 1,000 UNITS/10 ML VIAL SQ PRN (20:00)
[2018-01-04] MEDS ORDERED: LACTATED RINGER'S 1000 ML IV PRN (20:00)
[2018-01-04] MEDS ORDERED: POVIDONE IODINE 5% (ANTISEPSIS KIT) 4 APPLICATIONS EACH NARE PRN (20:00)
[2018-01-04 20:32] VITALS: BP 140/96; PULSE 60; RESP 16; TEMP 97.5; O2SAT 100
[2018-01-04 23:59] VITALS: BP 128/92; PULSE 67; RESP 16; TEMP 98; O2SAT 100
[2018-01-05] MEDS: LORazepam 1 MG TAB PO PRN (00:25)
[2018-01-05] MEDS: CIPROFLOXACIN 400 MG PREMIX 200 ML IV SCH ×2 (00:26→08:35)
[2018-01-05] MEDS: MORPHINE SULFATE 2 MG/ML SYRINGE IV PUSH PRN ×2 (03:10→08:35)
[2018-01-05 04:06] VITALS: BP 107/81; PULSE 75; RESP 17; TEMP 98; O2SAT 95
[2018-01-05] MEDS: metroNIDAZOLE 500 MG INJ 100 ML IV SCH ×2 (05:22→11:00)
[2018-01-05] MEDS: LORazepam 2 MG/ML VIAL IV PUSH PRN (05:23)
[2018-01-05 07:21] VITALS: BP 128/80; PULSE 72; RESP 16; TEMP 98.8; O2SAT 99
[2018-01-05] MEDS: SODIUM CHLOR 0.9% 1000 ML INJ 1,000 ML IV SCH (07:41)
[2018-01-05] MEDS: SODIUM CHLORIDE 0.9% FLUSH 10 ML FLUSH IV FLUSH SCH (08:36)
[2018-01-05 08:58] LABS: HEMATOCRIT 37.1 % (39.0-51.0); HEMOGLOBIN 12.6 GM/DL (13.0-17.0); MEAN CELL VOLUME 97.3 FL (80.0-100.0); MEAN CORPUSCULAR HEMOGLOBIN 33.1 PG (27.0-34.0); MEAN CORPUSCULAR HGB CONC 34.1 % (32.0-36.0); MEAN PLATELET VOLUME 8.2 FL (7.0-11.0); PLATELET COUNT 194 TH/MM3 (150-450); RED BLOOD COUNT 3.81 MIL/MM3 (4.50-5.90); RED CELL DISTRIBUTION WIDTH 19.4 % (11.6-17.2); WHITE BLOOD COUNT 4.7 TH/MM3 (4.0-11.0)
[2018-01-05 09:19] LABS: ALT (GPT) 69 U/L (12-78)
[2018-01-05 09:22] LABS: ALBUMIN 3.1 GM/DL (3.4-5.0); ALKALINE PHOSPHATASE 67 U/L (45-117); AST (GOT) 166 U/L (15-37); BICARBONATE 28.4 MEQ/L (21.0-32.0); BLOOD UREA NITROGEN 3 MG/DL (7-18); CALCIUM 8.6 MG/DL (8.5-10.1); CHLORIDE 107 MEQ/L (98-107); CREATININE 0.71 MG/DL (0.60-1.30); GLOMERULAR FILTRATION RATE 117 ML/MIN (>89); GLUCOSE,RANDOM 104 MG/DL (74-106); SODIUM (NA) 141 MEQ/L (136-145); TOTAL BILIRUBIN ADULT 0.7 MG/DL (0.2-1.0); TOTAL PROTEIN 6.5 GM/DL (6.4-8.2)
--- NOTE | 2018-01-05 11:16 | GIPROC ---
[facility] [address] [facility]. [facility], [address] EGD PROCEDURE REPORT EXAM DATE: 01/05/2018 PATIENT NAME: Porfirio Pink MR #: [id number] BIRTHDATE: 1965 ATTENDING: Marcia Hand MD ORDER #: [id number] WALLPAPER INSPECTOR: Caitlin Tesfaye and Marbin Sorensen STATUS: inpatient INDICATIONS: The patient is a 52 yr old male here for an EGD due to gi bleeding, abnormal ct, history of ulcers PROCEDURE PERFORMED: EGD w/ biopsy MEDICATIONS: None and Per Anesthesia. TOPICAL ANESTHETIC: none CONSENT: The patient understands the risks and benefits of the procedure and understands that these risks include, but are not limited to: sedation, allergic reaction, infection, perforation and/or bleeding. Alternative means of evaluation and treatment include, among others: physical exam, x-rays, and/or surgical intervention. The patient elects to proceed with this endoscopic procedure. medical equipment was checked for proper function. Hand hygiene and appropriate measures for infection prevention was taken. After the risks, benefits and alternatives of the procedure were thoroughly explained, Informed consent was verified, confirmed and timeout was successfully executed by the treatment team. The patient was anesthetized with topical anesthesia and the EC-[id number] (Pedi C) endoscope was introduced through the mouth and advanced to the second portion of the duodenum. Retroflexed views revealed a hiatal hernia The gastroscope was then slowly withdrawn and removed. Gastritis antrum-biopsy esophagitis distal esophagus -biopsy. ADVERSE EVENTS: There were no complications. IMPRESSIONS: 1. Gastritis antrum-biopsy esophagitis distal esophagus -biopsy 2. Retroflexed views revealed a hiatal hernia RECOMMENDATIONS: 1. Await biopsy results. Biopsy results will not be ready for 7-10 days. If you don't hear from us in two weeks, call our office for biopsy results. 2. Anti-reflux regimen 3. Continue PPI PATIENT CONDITION: stable DISPOSITION: Inpatient REPEAT EXAM: Return 3 years EGD Marcia Hand MD eSigned: Marcia Hand MD 01/05/2018 11:16 AM cc: PATIENT NAME: Porfirio Pink MR#: [id number]
[2018-01-05 11:20] VITALS: BP 136/86; PULSE 60; RESP 18; TEMP 96.2; O2SAT 98
--- NOTE | 2018-01-05 11:21 | GIPROC ---
[facility] [address] [facility]. [facility], [address] COLONOSCOPY PROCEDURE REPORT EXAM DATE: 01/05/2018 PATIENT NAME: Porfirio Pink MR #: [id number] BIRTHDATE: 1965 ENDOSCOPIST: Marcia Hand MD ORDER #: [id number] PEDIATRIC NURSE: Caitlin Tesfaye and Marbin Sorensen STATUS: inpatient INDICATIONS: The patient is a 52 yr old male here for a colonoscopy due to abnormal ct , gi bleeding PROCEDURE PERFORMED: Colonoscopy with biopsy MEDICATIONS: None and Per Anesthesia. PREP QUALITY: fair PREP TYPE:Other: ESTIMATED BLOOD LOSS: None CONSENT: The patient understands the risks and benefits of the procedure and understands that these risks include, but are not limited to: sedation, allergic reaction, infection, perforation and/or bleeding. Alternative means of evaluation and treatment include, among others: physical exam, x-rays, and/or surgical intervention. The patient elects to proceed with this endoscopic procedure. medical equipment was checked for proper function. Hand hygiene and appropriate measures for infection prevention was taken. After the risks, benefits and alternatives of the procedure were thoroughly explained, Informed consent was verified, confirmed and timeout was successfully executed by the treatment team. A digital exam revealed hemorrhoids The Pentax EC-[id number] endoscope was introduced through the anus and advanced to the cecum, which was identified by both the appendix and ileocecal valve. The instrument was then slowly withdrawn as the colon was fully examined. COLON FINDINGS: Colitis splenitc flexure, descending diverticulosis sigmoid, descending polyp diminutive cecum-biopsy four polyps in rectum-cold biopsy with complete removasl polyp diminutive sigmoid-cold biopsy with complete removal rabdom biopsies from ascending, sigmoid biopsy from areas of colitis. Retroflexed views revealed internal hemorrhoids and Retroflexed views revealed small internal hemorrhoids The scope was then completely withdrawn from the patient and the procedure terminated. PROCEDURE WITHDRAWAL TIME:6minutes ADVERSE EVENTS: There were no complications. IMPRESSIONS: 1. Colitis splenitc flexure, descending diverticulosis sigmoid, descending polyp diminutive cecum-biopsy four polyps in rectum-cold biopsy with complete removasl polyp diminutive sigmoid-cold biopsy with complete removal rabdom biopsies from ascending, sigmoid biopsy from areas of colitis 2. Retroflexed views revealed internal hemorrhoids 3. Retroflexed views revealed small internal hemorrhoids 4. Revealed hemorrhoids RECOMMENDATIONS: 1. Await biopsy results. Biopsy results will not be ready for 7-10 days. If you don't hear from us in two weeks, call our office for results. 2. Probiotics from any [email or web address] or [employer] food store 3. Ok to nm home from gi point RECALL: Return 3 months Colonoscopy Marcia Hand MD eSigned: Marcia Hand MD 01/05/2018 11:21 AM cc: PATIENT NAME: Porfirio Pink MR#: [id number]
--- NOTE | 2018-01-05 12:17 | HHI.PR ---
Subjective Remarks in no acute distress. looks more comfortable today. had EGD/ colonoscopy earlier today. Objective Vitals Vital Signs Date Time Temp Pulse Resp B/P (MAP) Pulse Ox O2 Delivery O2 Flow Rate FiO2 01/05/18 11:20 96.2 60 18 136/86 (103) 98 01/05/18 07:21 98.8 72 16 128/80 (96) 99 01/05/18 04:06 98.0 75 17 107/81 (90) 95 01/04/18 23:59 98.0 67 16 128/92 (104) 100 01/04/18 20:32 97.5 60 16 140/96 (111) 100 01/04/18 20:07 18 01/04/18 17:40 98.2 68 20 130/90 (103) 96 I/O 01/04/18 01/04/18 01/04/18 01/05/18 01/05/18 01/05/18 07:00 15:00 23:00 07:00 15:00 23:00 Intake Total 250 ml Balance 250 ml Intake Oral 0 ml Other 250 ml Result Diagram: 01/05/18 0820 01/05/18 0820 Imaging Last Impressions Abdomen/Pelvis CT 01/02/18 0000 Signed Impressions: Service Date/Time: Tuesday, January 02, 2018 13:34 - CONCLUSION: 1. Diffuse wall thickening involving the splenic flexure and descending colon as well as pericolic inflammatory changes consistent with acute colitis. Clinical correlation is recommended. 2. Degenerative changes and scoliosis of the lumbar spine. 3. Enlarged prostate with central calcifications. 4. Slightly fatty liver. Faizan Milian MD Objective Remarks GENERAL: This is a well-nourished, well-developed patient, in no apparent distress. CARDIOVASCULAR: Regular rate and regular rhythm without murmurs, gallops, or rubs. RESPIRATORY: Clear to auscultation. Breath sounds equal bilaterally. No wheezes , rales, or rhonchi. GASTROINTESTINAL: Abdomen soft,mild lower abdominal tenderness, nondistended. Normal, active bowel sounds MUSCULOSKELETAL: Extremities without clubbing, cyanosis, or edema. NEURO: Alert & Oriented x4 to person, place, time, situation. Moves all ext x4 Procedures EGD/ colonoscopy. Medications and IVs Inpatient Medications Acetaminophen (Tylenol) 650 mg Q4H PRN PO TEMP > 100.4; Start 01/01/18 at 23:45 Acetaminophen/ Hydrocodone Bitart (Genoa 5-325 Mg) 1 tab Q4H PRN PO Pain 5-10 ; Start 01/05/18 at 11:45; Status UNV Al Hydrox/Mg Hydrox/Simethicone (Mag-Al Plus Susp Liq) 20 ml QID PRN PO HEARTBURN; Start 01/02/18 at 01:00 Chlordiazepoxide (Librium) 10 mg TID PO Last administered on 01/05/18at 08:35; Start 01/04/18 at 13:00; Stop 01/07/18 at 12:59 Chlorhexidine Gluconate (Chlorhexidine 2% Cloth) 3 pack CABLE FERRYBOAT OPERATOR PRN TOPICAL SEE LABEL COMMENTS; Start 01/04/18 at 20:00; Stop 01/07/18 at 19:59 Ciprofloxacin/ Dextrose 200 ml @ 200 mls/hr Q8H IV Last administered on at 08:35; Start 01/02/18 at 16:00 Clonidine (Catapres) 0.1 mg Q6H PRN PO SYS BP GREATER THAN 160 MMHG; Start at 17:30 Diatrizoate Meglum/ Diatrizoate Sod ( Gastroview Liq) 18 ml ONCE ONCE PO Last administered on 01/02/18at 11:34; Start 01/02/18 at 10:45; Stop 01/02/18 at 10:46; Status DC Flumazenil (Romazicon Inj) 0.2 mg Q1M PRN IV PUSH SEE LABEL COMMENTS; Start at 01:00 Insulin Human Regular (NovoLIN R INJ) See Protocol Table ... CABLE FERRYBOAT OPERATOR PRN SQ SEE PROTOCOL TABLE; Start 01/04/18 at 20:00; Stop 01/07/18 at 19:59 Lactated Ringer's 1,000 ml @ 30 mls/hr Q24H PRN IV SEE LABEL COMMENTS; Start at 20:00; Stop 01/07/18 at 19:59 Lorazepam (Ativan Inj) 2 mg Q15M PRN IV PUSH CIWA > 20; Start 01/02/18 at 01:00 Lorazepam (Ativan) 2 mg Q2H PRN PO CIWA 11-14; Start 01/02/18 at 01:00 Metoprolol Tartrate (Lopressor) 25 mg CABLE FERRYBOAT OPERATOR PRN PO SEE LABEL COMMENTS; Start 01/04/18 at 20:00; Stop 01/07/18 at 19:59 Metronidazole 100 ml @ 100 mls/hr Q6H IV Last administered on 01/05/18at 05:22 ; Start 01/02/18 at 17:00 Morphine Sulfate (Morphine Inj) 2 mg Q3H PRN IV PUSH pain>5 Last administered on 01/05/18at 08:35; Start 01/02/18 at 01:00; Stop 01/05/18 at 11:46; Status DC Naloxone HCl (Narcan Inj) 0.4 mg UNSCH PRN IV PUSH SEE LABEL COMMENTS; Start at 23:45 Ondansetron HCl (Zofran Inj) 4 mg Q6H PRN IVP NAUSEA OR VOMITING; Start at 23:45 Pantoprazole Sodium (Protonix Inj) 40 mg ONCE ONCE IV PUSH Last administered on 01/01/18at 21:01; Start 01/01/18 at 21:00; Stop 01/01/18 at 21:01; Status DC Pantoprazole Sodium 80 mg/ Sodium Chloride 100 ml @ 10 mls/hr Q10H IV Last administered on 01/04/18at 14:24; Start 01/03/18 at 08:15; Stop 01/05/18 at 11:46 ; Status DC Polyethylene Glycol/ Electrolytes (Colyte Liq) 4,000 ml ONCE ONCE PO Last administered on 01/04/18at 16:14; Start 01/04/18 at 16:00; Stop 01/04/18 at 16:01 ; Status DC Povidone Iodine (Betadine 5% Antisepsis Kit) 1 applic CABLE FERRYBOAT OPERATOR PRN EACH NARE SEE LABEL COMMENTS; Start 01/04/18 at 20:00; Stop 01/07/18 at 19:59 Sodium Chloride 500 ml @ 30 mls/hr [id number] PRN IV SEE LABEL COMMENTS; Start at 20:00; Stop 01/07/18 at 19:59 Sodium Chloride (NS Flush) 2 ml BID IV FLUSH Last administered on 01/05/18at 08: 36; Start 01/02/18 at 09:00 Zolpidem Tartrate (Ambien) 5 mg HS PRN PO INSOMNIA Last administered on at 23:20; Start 01/03/18 at 12:00 A/P Problem List: (1) Hematochezia ICD Code: K92.1 - Melena (2) Alcohol abuse ICD Code: F10.10 - Alcohol abuse, uncomplicated (3) Colitis ICD Code: K52.9 - Noninfective gastroenteritis and colitis, unspecified Assessment and Plan Hematochezia, Hgb 11.4, with abdominal pain, Hemoccult positive Colitis -continue with Antibiotics and pain control. - s/p EGD/ colonoscopy with : Colitis splenitc flexure, descending diverticulosis sigmoid, descending polyp diminutive cecum-biopsy four polyps in rectum-cold biopsy with complete removal polyp diminutive sigmoid-cold biopsy with complete removal random biopsies from ascending, sigmoid biopsy from areas of colitis - continue PPI -H/H stable. Alcohol abuse -Encouraged to quit Discharge Planning dc home today. see med list. f/u; pcp and GI. d/w the patient. Luis Armando Maher MD Jan 05, 2018 12:17
[2018-01-05] MEDS ORDERED: METR-1 PO (12:22)
[2018-01-05] MEDS ORDERED: CIPR-9 PO (12:22)
[2018-01-05] MEDS ORDERED: PANT40TA3 PO (12:22)
--- NOTE | 2018-01-05 12:23 | HHI.DS ---
Discharge Summary Admission Date Jan 01, 2018 at 22:59 Discharge Date: Jan 05, 2018 Admitting Diagnosis rectal bleed (1) Hematochezia ICD Code: K92.1 - Melena Diagnosis: Principal (2) Alcohol abuse ICD Code: F10.10 - Alcohol abuse, uncomplicated Diagnosis: Principal (3) Colitis ICD Code: K52.9 - Noninfective gastroenteritis and colitis, unspecified Diagnosis: Principal Procedures EGD/ colonoscopy. Brief History - From Admission 52 y/o male with a history of chronic alcohol abuse, hepatitis B, hepatitis C, history of GI bleed, history of gastric ulcers, history of hypertension, history of IV drug use, history of chronic back pain. Patient states for the last few days he has had bright right blood from his rectum. He states his abdominal pain is intermittent cramping to lower umbilical area with no radiation and with associated nausea, vomiting and diarrhea, pain medication helps, eating makes it worse. He denies any recent NSAID use, he states he still drinks and his last drink was yesterday. He has tried to quit but so far has been un successful. He states he is compliant with his protonix at home. He denies any chest pain, sob, fevers or chills. Patient had a colonoscopy on December 22, 2017 and the result per GI stated Schatzki ring, Hiatal hernia, Gastritis, and Duodenal ulcer. CBC/BMP: 01/05/18 0820 01/05/18 0820 Significant Findings Laboratory Tests Test 01/03/18 04:32 01/03/18 09:15 01/05/18 08:20 Red Blood Count 3.81 MIL/MM3 (4.50-5.90) Hemoglobin 12.6 GM/DL (13.0-17.0) Hematocrit 37.1 % (39.0-51.0) Red Cell Distribution Width 19.4 % (11.6-17.2) Blood Urea Nitrogen 3 MG/DL (7-18) Albumin 3.1 GM/DL (3.4-5.0) Aspartate Amino Transf (AST/SGOT) 166 U/L (15-37) Imaging Last Impressions Abdomen/Pelvis CT 01/02/18 0000 Signed Impressions: Service Date/Time: Tuesday, January 02, 2018 13:34 - CONCLUSION: 1. Diffuse wall thickening involving the splenic flexure and descending colon as well as pericolic inflammatory changes consistent with acute colitis. Clinical correlation is recommended. 2. Degenerative changes and scoliosis of the lumbar spine. 3. Enlarged prostate with central calcifications. 4. Slightly fatty liver. Faizan Milian MD PE at Discharge GENERAL: This is a well-nourished, well-developed patient, in no apparent distress. SKIN: Warm and dry. HEENT: Normocephalic. Pupils equal round and reactive. Nose without bleeding. Airway patent. NECK: Trachea midline. CARDIOVASCULAR: Regular rate and rhythm without murmurs, gallops, or rubs. RESPIRATORY: Clear to auscultation. Breath sounds equal bilaterally. No wheezes , rales, or rhonchi. GASTROINTESTINAL: Abdomen soft, non-tender, nondistended. Bowel Sounds normoactive x4. MUSCULOSKELETAL: Extremities without clubbing, cyanosis, or edema. No tremors noted. NEUROLOGICAL: Awake and alert. Oriented to time, place, person. No focal neuro deficit. Moves all extremities. Normal speech. Hospital Course Hematochezia, Hgb 11.4, with abdominal pain, Hemoccult positive Colitis -continue with Antibiotics and pain control. - s/p EGD/ colonoscopy with : Colitis splenitc flexure, descending diverticulosis sigmoid, descending polyp diminutive cecum-biopsy four polyps in rectum-cold biopsy with complete removal polyp diminutive sigmoid-cold biopsy with complete removal random biopsies from ascending, sigmoid biopsy from areas of colitis - continue PPI -H/H stable. Alcohol abuse -Encouraged to quit Pt Condition on Discharge: Stable Discharge Disposition: Discharge Home Discharge Time: <= 30 minutes Luis Armando Maher MD Jan 05, 2018 12:23
[2018-01-05] MEDS ORDERED: ACETAMINOPHEN/HYDROcodone 325 MG/5 MG TAB PO PRN (12:30)
[2018-01-05] MEDS ORDERED: PROPOFOL 200 MG/20 ML AMP IV ONE (16:57)
[2018-01-05] MEDS ORDERED: LACTATED RINGER'S 1000 ML INJ 1,000 ML IV ONE (16:57)
== END 2018-01-05 16:58 | disposition home or self-care (01) ==
LOC: NEPC 13:54 → NEDA 22:59 → NEPHCDU 01-02 00:17
PROVIDERS: ADMIT Internal Medicine; ATTEND Internal Medicine
DX: K92.1 Melena (principal); F10.10 Alcohol abuse, uncomplicated; K52.9 Noninfective gastroenteritis and colitis, unspecified; K44.9 Diaphragmatic hernia without obstruction or gangrene; K57.30 Diverticulosis of large intestine without perforation or abscess without bleeding; K64.8 Other hemorrhoids; K31.9 Disease of stomach and duodenum, unspecified; D12.0 Benign neoplasm of cecum; K63.5 Polyp of colon; K62.1 Rectal polyp; I10 Essential (primary) hypertension; K74.60 Unspecified cirrhosis of liver; R79.89 Other specified abnormal findings of blood chemistry; J44.9 Chronic obstructive pulmonary disease, unspecified; K21.9 Gastro-esophageal reflux disease without esophagitis; K86.1 Other chronic pancreatitis; D64.9 Anemia, unspecified; M06.9 Rheumatoid arthritis, unspecified; B19.10 Unspecified viral hepatitis B without hepatic coma; B19.20 Unspecified viral hepatitis C without hepatic coma; M41.86 Other forms of scoliosis, lumbar region; K76.0 Fatty (change of) liver, not elsewhere classified; F41.9 Anxiety disorder, unspecified; F32.9 Major depressive disorder, single episode, unspecified; N40.0 Benign prostatic hyperplasia without lower urinary tract symptoms; M19.90 Unspecified osteoarthritis, unspecified site; F17.200 Nicotine dependence, unspecified, uncomplicated; Z79.899 Other long term (current) drug therapy
CPT/HCPCS: 00813; 43239; 45380; 74177; 80048; 80053; 81001; 82105; 82378; 83690; 85025; 85027; 85610; 86850; 86900; 86901; 87328; 87329; 87493; 87506; 88305; 88312; 96361; 96365; 96366; 96367; 96368; 96375; 96376; 99285; C9113; G0378; J0744; J2060; J2270; J7030; J7120; Q9963; Q9967

== ENCOUNTER 2018-01-13 19:57 | Emergency (ER) | payer OTHER ==
[~2018-01-13] VITALS: Ht 198.1 cm; Wt 90.0 kg
[~2018-01-13 19:57] MED LIST changes: -CEPH-460 PO; -CHLO10CA5 PO; +CIPR-9 PO; +METR-1 PO; -MS C15TA7 PO; -OXYC-396 PO; -PANT20 PO
[2018-01-13 20:05] VITALS: BP 118/78; PULSE 106; RESP 16; TEMP 98.7
[2018-01-13] MEDS ORDERED: LORazepam 1 MG TAB PO PRN (20:30)
[2018-01-13] MEDS ORDERED: LORazepam 2 MG/ML VIAL IV PUSH PRN ×4 (20:30)
[2018-01-13] MEDS ORDERED: ONDANSETRON ODT 4 MG TAB PO PRN (20:30)
[2018-01-13] MEDS ORDERED: ACETAMINOPHEN 325 MG TAB PO PRN (20:30)
[2018-01-13] MEDS ORDERED: FLUMAZENIL 0.5 MG/5 ML VIAL IV PUSH PRN (20:30)
[2018-01-13 20:47] VITALS: BP 126/84; PULSE 97; RESP 18; O2SAT 98
[2018-01-13 21:10] LABS: AUTOMATED NEUTROPHIL # 2.7 TH/MM3 (1.8-7.7); BASOPHIL # 0.1 TH/MM3 (0-0.2); BASOPHIL % 2.6 % (0.0-2.0); EOSINOPHIL # 0.1 TH/MM3 (0-0.4); EOSINOPHIL % 2.2 % (0.0-4.0); HEMATOCRIT 41.9 % (39.0-51.0); HEMOGLOBIN 13.9 GM/DL (13.0-17.0); LYMPHOCYTE # 2.1 TH/MM3 (1.0-4.8); MEAN CELL VOLUME 94.1 FL (80.0-100.0); MEAN CORPUSCULAR HEMOGLOBIN 31.3 PG (27.0-34.0); MEAN CORPUSCULAR HGB CONC 33.2 % (32.0-36.0); MEAN PLATELET VOLUME 7.7 FL (7.0-11.0); MONO % 6.2 % (0.0-8.0); MONOCYTE # 0.3 TH/MM3 (0-0.9); PLATELET COUNT 345 TH/MM3 (150-450); RED BLOOD COUNT 4.45 MIL/MM3 (4.50-5.90); RED CELL DISTRIBUTION WIDTH 18.9 % (11.6-17.2); WHITE BLOOD COUNT 5.4 TH/MM3 (4.0-11.0)
[2018-01-13 21:24] LABS: ALBUMIN 4.3 GM/DL (3.4-5.0); AST (GOT) 174 U/L (15-37); BICARBONATE 24.8 MEQ/L (21.0-32.0); BLOOD UREA NITROGEN 7 MG/DL (7-18); CALCIUM 9.7 MG/DL (8.5-10.1); CHLORIDE 109 MEQ/L (98-107); CREATININE 0.76 MG/DL (0.60-1.30); GLOMERULAR FILTRATION RATE 108 ML/MIN (>89); GLUCOSE,RANDOM 103 MG/DL (74-106); SODIUM (NA) 144 MEQ/L (136-145)
[2018-01-13 21:25] LABS: ALT (GPT) 67 U/L (12-78)
[2018-01-13 21:29] LABS: ACETAMINOPHEN LESS THAN 2.0 MCG/ML (10.0-30.0)
[2018-01-13 21:35] LABS: ALKALINE PHOSPHATASE 85 U/L (45-117); TOTAL BILIRUBIN ADULT 0.4 MG/DL (0.2-1.0); TOTAL PROTEIN 8.5 GM/DL (6.4-8.2)
--- NOTE | 2018-01-13 21:37 | PD ---
HPI Chief Complaint: Alcohol/Drug Intoxication Time Seen by Provider: 20:19 Travel History International Travel<30 days: No Contact w/Intl Traveler<30days: No Traveled to known affect area: No History of Present Illness HPI 52-year-old male that presents to the ED for evaluation of Rose act. Patient was Rose acted by police after apparently he made suicidal statements to police threatening that he was given in his life. Apparently he had an argument with his family member he was brought here for evaluation. Patient states that he has been drinking alcohol. He has a history of alcohol abuse. He also has a history of ulcers and polyps and was recently admitted for GI bleed. He has been here multiple times for alcohol-related events. He denies any medical issues at this time other than having a slight headache. Per patient he did bump his head but he would not tell me how he did it. He has an allergy to penicillin and prednisone. He has been Rose acted in the past. He states feeling depressed and suicidal. He denies any clots. No other medical issues at this time. Unclear if patient takes any medications. He does appear to be somewhat intoxicated so history is limited because of intoxication and reluctance to give me information. Per Rose act to go an argument with his mother and threatened to kill himself and his mother. PFSH Past Medical History Hx Anticoagulant Therapy: No Anemia: Yes Arthritis: Yes (RA) Asthma: No Autoimmune Disease: No Blood Disorders: Yes (HEPATITIS B AND C NO TREATMENT) Anxiety: Yes Depression: Yes Heart Rhythm Problems: No Cancer: No Cardiovascular Problems: No High Cholesterol: No Chemotherapy: No Chest Pain: Yes Congestive Heart Failure: No Cirrhosis: Yes COPD: Yes Cerebrovascular Accident: No Diabetes: No Diminished Hearing: No Endocrine: No Gastrointestinal Disorders: Yes (PANCREATITIS) GERD: Yes Genitourinary: No Headaches: Yes Hepatitis: Yes (B + C) Hiatal Hernia: No Heparin Induced Thrombocytopen: No Herniated Disk: Yes Hypertension: Yes Immune Disorder: No Implanted Vascular Access Dvce: Yes Insomnia: Yes Kidney Stones: No Musculoskeletal: No Neurologic: No Psychiatric: No Reproductive: No Respiratory: No Integumentary: Yes (HX IV DRUG USE) Immunizations Current: Yes Migraines: Yes Pancreatitis: Yes Pneumonia: Yes Radiation Therapy: No Renal Failure: No Seizures: No Sickle Cell Disease: No Sleep Apnea: No Thyroid Disease: No Ulcer: Yes PNEUMOCCOCAL Vaccine (Year): 2 Past Surgical History Abdominal Surgery: Yes (LIVER BIOPSY) AICD: No Arteriovenous Shunt: No Body Medical Devices: STEEL PLATE IN RIGHT ANKLE Cardiac Surgery: No Ear Surgery: No Endocrine Surgery: Yes (LIVER BIOPSY) Eye Surgery: No Genitourinary Surgery: No Gynecologic Surgery: No Hysterectomy: No Insulin Pump: No Joint Replacement: No Neurologic Surgery: No Oral Surgery: No Pacemaker: No Thoracic Surgery: Yes (CHEST TUBE- R/O TB 2009) Tonsillectomy: Yes Other Surgery: Yes (right ankle plate) Social History Alcohol Use: Yes (DAILY, VODKA 1/2 gallon) Tobacco Use: Yes (1/2 PPD) Substance Use: No Allergies-Medications (Allergen,Severity, Reaction): Coded Allergies: Penicillins (Verified Allergy, Severe, 01/01/18) prednisone (Verified Allergy, Severe, Rash, 01/01/18) Reported Meds & Prescriptions Reported Meds & Active Scripts Active Flagyl (Metronidazole) 500 Mg Tab 500 Mg PO TID 7 Days Cipro (Ciprofloxacin HCl) 500 Mg Tab 500 Mg PO BID 7 Days Pantoprazole (Pantoprazole Sodium) 40 Mg Tab 40 Mg PO DAILY 30 Days Gaviscon Extra Strength R Liq (Aluminum Hydroxide-Mag Carb Liq) 508-475 Mg/10 Ml Susp 10-20 Ml PO QID PRN 7 Days Maximum 80 mL/24 hrs. Zofran Odt (Ondansetron Odt) 4 Mg Tab 4 Mg SL Q6HR PRN Ultram (Tramadol HCl) 50 Mg Tab 50 Mg PO Q4H PRN Review of Systems ROS Limitations: Intoxication Except as stated in HPI: all other systems reviewed are Neg Physical Exam Exam Limitations: Intoxication Narrative GENERAL: SKIN: Warm and dry. HEAD: Atraumatic. Normocephalic. EYES: Pupils equal and round. No scleral icterus. No injection or drainage. ENT: No nasal bleeding or discharge. Mucous membranes pink and moist. Tongue is midline. No uvula deviation. NECK: Trachea midline. No JVD. CARDIOVASCULAR: Regular rate and rhythm. No murmurs, S3, S4. RESPIRATORY: No accessory muscle use. Clear to auscultation. Breath sounds equal bilaterally. GASTROINTESTINAL: Abdomen soft, non-tender, nondistended. Hepatic and splenic margins not palpable. MUSCULOSKELETAL: Extremities without clubbing, cyanosis, or edema. No obvious deformities. Full range of motion of the upper and lower extremities bilaterally. 2+ pulses bilaterally. NEUROLOGICAL: Awake and alert. No obvious cranial nerve deficits. Motor grossly within normal limits. Five out of 5 muscle strength in the arms and legs. Normal speech. PSYCHIATRIC: Intoxicated mood and affect; insight and judgment normal. Data Data Last Documented VS Vital Signs Date Time Temp Pulse Resp B/P (MAP) Pulse Ox O2 Delivery O2 Flow Rate FiO2 01/13/18 20:47 97 18 126/84 (98) 98 Room Air 01/13/18 20:05 98.7 Orders Orders Complete Blood Count With Diff (01/13/18 20:19) Comprehensive Metabolic Panel (01/13/18 20:19) Thyroid Stimulating Hormone (01/13/18 20:19) Psych Screen (01/13/18 20:19) Drug Screen, Random Urine (01/13/18 20:19) Alcohol (Ethanol) (01/13/18 20:19) Salicylates (Aspirin) (01/13/18 20:19) Tylenol (Acetaminophen) (01/13/18 20:19) Ct Brain W/O Iv Contrast(Rout) (01/13/18 20:24) Alcohol Withdrawal Asmt-Ciwa ONCE (01/13/18 20:24) Ondansetron Odt (Zofran Odt) (01/13/18 20:30) Acetaminophen (Tylenol) (01/13/18 20:30) Flumazenil Inj (Romazicon Inj) (01/13/18 20:30) Lorazepam (Ativan) (01/13/18 20:30) Lorazepam Inj (Ativan Inj) (01/13/18 20:30) Lorazepam (Ativan) (01/13/18 20:30) Lorazepam Inj (Ativan Inj) (01/13/18 20:30) Lorazepam Inj (Ativan Inj) (01/13/18 20:30) Lorazepam Inj (Ativan Inj) (01/13/18 20:30) Labs Laboratory Tests Test 01/13/18 20:27 White Blood Count 5.4 TH/MM3 Red Blood Count 4.45 MIL/MM3 Hemoglobin 13.9 GM/DL Hematocrit 41.9 % Mean Corpuscular Volume 94.1 FL Mean Corpuscular Hemoglobin 31.3 PG Mean Corpuscular Hemoglobin Concent 33.2 % Red Cell Distribution Width 18.9 % Platelet Count 345 TH/MM3 Mean Platelet Volume 7.7 FL Neutrophils (%) (Auto) 50.0 % Lymphocytes (%) (Auto) 39.0 % Monocytes (%) (Auto) 6.2 % Eosinophils (%) (Auto) 2.2 % Basophils (%) (Auto) 2.6 % Neutrophils # (Auto) 2.7 TH/MM3 Lymphocytes # (Auto) 2.1 TH/MM3 Monocytes # (Auto) 0.3 TH/MM3 Eosinophils # (Auto) 0.1 TH/MM3 Basophils # (Auto) 0.1 TH/MM3 CBC Comment DIFF FINAL Differential Comment Alanine Aminotransferase (ALT/SGPT) 67 U/L Anion Gap 10 MEQ/L Estimat Glomerular Filtration Rate 108 ML/MIN Salicylates Level 2.2 MG/DL Acetaminophen Level LESS THAN 2.0 MCG/ML Ethyl Alcohol Level 235 MG/DL MDM Medical Decision Making Medical Screen Exam Complete: Yes Emergency Medical Condition: Yes Medical Record Reviewed: Yes Interpretation(s) CBC & BMP Diagram 01/13/18 20:27 Alanine Aminotransferase (ALT/SGPT) 67 alcohol in the 200s Differential Diagnosis Depression versus suicidal ideation versus anxiety versus adjustment disorder versus mood disorder versus bipolar disorder versus schizophrenia versus paranoid disorder versus psychosis versus substance abuse versus alcohol abuse versus alcohol induced psychosis versus homicidality addition versus cutting versus personality disorder Narrative Course 52-year-old male that presents to the ED for evaluation of psych. Patient was properly examined and was found to have signs and symptoms consistent with psychiatric illness. No sign of acute medical distress. Labs were drawn. CT was ordered. Patient will be medically cleared pending labs. I ordered CIWA for the patient secondary to his significant history of alcohol abuse and history of alcohol withdrawals in the past. Okay to be seen by psych. Mental health screening was discussed with the patient. Diagnosis Primary Impression: Alcohol abuse with alcohol-induced mood disorder Jadon Rodrigues Jan 13, 2018 21:36
--- NOTE | 2018-01-13 22:32 | RADRPT ---
EXAM DATE/TIME: 01/13/2018 22:00 [facility] COMPARISON: MRI BRAIN W & W/O CONTRAST, July 31, 2017, 19:30. CT BRAIN W/O CONTRAST, July 31, 2017, 12: 51. INDICATIONS : Patient complains of headache. RADIATION DOSE: 36.36 CTDIvol (mGy) MEDICAL HISTORY : Hypertension. Pancreatitis. Chronic obstructive pulmonary disease.liver disease SURGICAL HISTORY : None. ENCOUNTER: Initial ACUITY: 1 day PAIN SCALE: 5/10 LOCATION: cranial TECHNIQUE: Multiple contiguous axial images were obtained of the head. Using automated exposure control and adj ustment of the mA and/or kV according to patient size, radiation dose was kept as low as reasonably a chievable to obtain optimal diagnostic quality images. DICOM format image data is available electro nically for review and comparison. FINDINGS: CEREBRUM: The ventricles are normal for age. No evidence of midline shift, mass lesion, hemorrhage or acute in farction. No extra-axial fluid collections are seen. POSTERIOR FOSSA: The cerebellum and brainstem are intact. The 4th ventricle is midline. The cerebellopontine angle i s unremarkable. EXTRACRANIAL: The visualized portion of the orbits is intact. SKULL: The calvaria is intact. No evidence of skull fracture. CONCLUSION: Negative noncontrast head CT. Wesly Roblero MD on January 13, 2018 at 22:29 Board Certified Radiologist. This report was verified electronically.
[2018-01-14] MEDS: LORazepam 2 MG TAB PO PRN ×2 (00:19→08:13)
[2018-01-14 03:09] VITALS: BP 147/80; PULSE 90; RESP 18; TEMP 98.1; O2SAT 97
[2018-01-14] MEDS ORDERED: PANTOPRAZOLE SOD 40 MG DELAYED RELEASE TAB PO ONE (08:15)
[2018-01-14 10:00] VITALS: BP 138/83; PULSE 86; RESP 18; TEMP 98.4; O2SAT 100
--- NOTE | 2018-01-14 10:18 | PD ---
History of Present Illness Chief Complaint: Alcohol/Drug Intoxication Time Seen by Provider: 09:45 Travel History International Travel<30 Days: No Contact w/Intl Traveler<30days: No Known affected area: No Legal Status Legal Status: Rose Act Rose Act Signed By: Sarina Del Valle History of Present Illness: History of Present Illness HPI 52-year-old, single male known to [facility], with history of alcohol dependence, multiple ED visits for alcohol intoxication as well as multiple sequelae from his long-term alcohol use that presents to the ED for evaluation of Rose act. The Rose act alleges that the patient felt like he was going to and that he stated he might as well kill himself and take his mother with him. He also stated that he would like the post secondary professional to shoot him. The patient made such statements in context of alcohol intoxication and his blood alcohol level on arrival to the ED was 235. The patient did not make any attempt at harming himself or harming anyone else. The patient was monitored in secure environment and he presented no behavioral concerns and no suicidality. He was placed on CIWA protocol as a precaution. Patient is seen this morning. He is clinically sober. He is alert, oriented, calm and engaging. His speech is clear and logical. He does have some tremors noted of his hands. The patient does not present any evidence of any psychosis , no denzel, no hypomania. Patient's mood is nearly euthymic. Patient denies any suicidal or homicidal ideation, intent or plan. He states that he never said that he wanted to kill himself. He explains that his stepfather was drinking and was involved in an argument with his mother. He got involved and in the argument he does admit to saying something like "if we both will be in have an annual be a better place." The patient denies that he has any intent of harming his mother and actually states that he is the one responsible for bringing her to her appointments and taking care of her since he tells me she has been diagnosed with dementia. In terms of his alcohol use he tells me that since his last visit he has been trying to cut down and is now only drinking a pint a day. He has gone to [facility] substance abuse program and tells me that he has a prescription for Librium at home to help him continue cutting back on his alcohol use PFSH Past Medical History Hx Anticoagulant Therapy: No Anemia: Yes Arthritis: Yes (RA) Asthma: No Autoimmune Disease: No Blood Disorders: Yes (HEPATITIS B AND C NO TREATMENT) Anxiety: Yes Depression: Yes Heart Rhythm Problems: No Cancer: No Cardiovascular Problems: No High Cholesterol: No Chemotherapy: No Chest Pain: Yes Congestive Heart Failure: No Cirrhosis: Yes COPD: Yes Cerebrovascular Accident: No Diabetes: No Diminished Hearing: No Endocrine: No Gastrointestinal Disorders: Yes (PANCREATITIS) GERD: Yes Genitourinary: No Headaches: Yes Hepatitis: Yes (B + C) Hiatal Hernia: No Heparin Induced Thrombocytopen: No Herniated Disk: Yes Hypertension: Yes Immune Disorder: No Implanted Vascular Access Dvce: Yes Insomnia: Yes Kidney Stones: No Musculoskeletal: No Neurologic: No Psychiatric: No Reproductive: No Respiratory: No Integumentary: Yes (HX IV DRUG USE) Immunizations Current: Yes Migraines: Yes Pancreatitis: Yes Pneumonia: Yes Radiation Therapy: No Renal Failure: No Seizures: No Sickle Cell Disease: No Sleep Apnea: No Thyroid Disease: No Ulcer: Yes PNEUMOCCOCAL Vaccine (Year): 2 Past Surgical History Abdominal Surgery: Yes (LIVER BIOPSY) AICD: No Arteriovenous Shunt: No Body Medical Devices: STEEL PLATE IN RIGHT ANKLE Cardiac Surgery: No Ear Surgery: No Endocrine Surgery: Yes (LIVER BIOPSY) Eye Surgery: No Genitourinary Surgery: No Gynecologic Surgery: No Hysterectomy: No Insulin Pump: No Joint Replacement: No Neurologic Surgery: No Oral Surgery: No Pacemaker: No Thoracic Surgery: Yes (CHEST TUBE- R/O TB 2009) Tonsillectomy: Yes Other Surgery: Yes (right ankle plate) Psychiatric History Psychiatric History Hx Psychiatric Treatment: Patient with a long history of alcohol abuse with intoxication with numerous visits to ED. no previous history of suicide attempts. No history of self-injurious behavior. No documented history of violent behavior History of Inpatient Treatment: No Guns or firearms in home: No Social History Single male, completed 11th grade. Unemployed. Lives with his mother and his stepfather. Hx Alcohol Use: Yes (DAILY, VODKA 1/2 gallon) Hx Tobacco Use: Yes (1/2 PPD) Hx Substance Use: Yes Substance Use Type: Alcohol Other Substances Used: POLYSUBSTANCE ABUSE HX Hx of Substance Use Treatment: Yes Family Psychiatric History Negative Allergies-Medications (Allergen,Severity, Reaction): Coded Allergies: Penicillins (Verified Allergy, Severe, 01/01/18) prednisone (Verified Allergy, Severe, Rash, 01/01/18) Reported Meds & Prescriptions Reported Meds & Active Scripts Active Flagyl (Metronidazole) 500 Mg Tab 500 Mg PO TID 7 Days Cipro (Ciprofloxacin HCl) 500 Mg Tab 500 Mg PO BID 7 Days Pantoprazole (Pantoprazole Sodium) 40 Mg Tab 40 Mg PO DAILY 30 Days Gaviscon Extra Strength R Liq (Aluminum Hydroxide-Mag Carb Liq) 508-475 Mg/10 Ml Susp 10-20 Ml PO QID PRN 7 Days Maximum 80 mL/24 hrs. Zofran Odt (Ondansetron Odt) 4 Mg Tab 4 Mg SL Q6HR PRN Ultram (Tramadol HCl) 50 Mg Tab 50 Mg PO Q4H PRN Review of Systems Gastrointestinal: COMPLAINS OF: Abdominal pain, Black stools, Nausea Psychiatric: DENIES: Anxiety, Confusion, Mood changes, Depression, Hallucinations, Agitation, Suicidal Ideation, Homicidal Ideation, Delusions Except as stated in HPI: all other systems reviewed are Neg Mental Status Examination Appearance: Appropriate (In hospital scrubs) Consciousness: Alert Orientation: x4 Motor Activity: Normal gait Speech: Unremarkable Language: Adequate Fund of Knowledge: Adequate Attention and Concentration: Adequate Memory: Unremarkable Mood: Appropriate Affect: Appropriate Thought Process & Associations: Intact, Logical, Goal directed Thought Content: Appropriate Hallucination Type: None Delusion Type: None Suicidal Ideation: No Suicidal Plan: No Suicidal Intention: No Homicidal Ideation: No Homicidal Plan: No Homicidal Intention: No Insight: Fair Judgment: Adequate [facility] Medical Decision Making Medical Record Reviewed: Yes Assessment/Plan 52-year-old male with history of alcohol dependence, multiple visits to the ED for alcohol intoxication, who presented to the ED under a Rose act alleging that he made statements that he wanted to kill himself and take his mother with him. The patient was intoxicated at the time that he made the statements and arrived with a blood alcohol level of 235. The patient was allowed to sober up clinically and presented no behavioral dysregulation and no homicidality or suicidality. He presents no evidence of unstable mental illness as defined under the Rose act. He reports that he is working on reducing the amount of alcohol that he consumes and is working with Madeline Carter on this. At this time the patient denies any suicidal or homicidal ideation, intent or plan. He is provided with teaching. Encouraged to continue on his work on his sobriety. The Rose act will be lifted. Psychiatrically clear for discharge from the ED. Orders Orders Complete Blood Count With Diff (01/13/18 20:19) Comprehensive Metabolic Panel (01/13/18 20:19) Thyroid Stimulating Hormone (01/13/18 20:19) Psych Screen (01/13/18 20:19) Drug Screen, Random Urine (01/13/18 20:19) Alcohol (Ethanol) (01/13/18 20:19) Salicylates (Aspirin) (01/13/18 20:19) Tylenol (Acetaminophen) (01/13/18 20:19) Ct Brain W/O Iv Contrast(Rout) (01/13/18 20:24) Alcohol Withdrawal Asmt-Ciwa ONCE (01/13/18 20:24) Ondansetron Odt (Zofran Odt) (01/13/18 20:30) Acetaminophen (Tylenol) (01/13/18 20:30) Flumazenil Inj (Romazicon Inj) (01/13/18 20:30) Lorazepam (Ativan) (01/13/18 20:30) Lorazepam Inj (Ativan Inj) (01/13/18 20:30) Lorazepam (Ativan) (01/13/18 20:30) Lorazepam Inj (Ativan Inj) (01/13/18 20:30) Lorazepam Inj (Ativan Inj) (01/13/18 20:30) Lorazepam Inj (Ativan Inj) (01/13/18 20:30) Diet Regular Basic (01/14/18 Breakfast) Lipase (01/14/18 08:03) Pantoprazole (Protonix) (01/14/18 08:15) Diet Regular Basic (01/14/18 Lunch) Results Vital Signs Date Time Temp Pulse Resp B/P (MAP) Pulse Ox O2 Delivery O2 Flow Rate FiO2 01/14/18 03:09 98.1 90 18 147/80 (102) 97 Room Air 01/13/18 20:47 97 18 126/84 (98) 98 Room Air 01/13/18 20:05 98.7 106 16 118/78 (91) Laboratory Tests Test 01/13/18 20:27 01/13/18 22:40 White Blood Count 5.4 Red Blood Count 4.45 Hemoglobin 13.9 Hematocrit 41.9 Mean Corpuscular Volume 94.1 Mean Corpuscular Hemoglobin 31.3 Mean Corpuscular Hemoglobin Concent 33.2 Red Cell Distribution Width 18.9 Platelet Count 345 Mean Platelet Volume 7.7 Neutrophils (%) (Auto) 50.0 Lymphocytes (%) (Auto) 39.0 Monocytes (%) (Auto) 6.2 Eosinophils (%) (Auto) 2.2 Basophils (%) (Auto) 2.6 Neutrophils # (Auto) 2.7 Lymphocytes # (Auto) 2.1 Monocytes # (Auto) 0.3 Eosinophils # (Auto) 0.1 Basophils # (Auto) 0.1 CBC Comment DIFF FINAL Differential Comment Blood Urea Nitrogen 7 Creatinine 0.76 Random Glucose 103 Total Protein 8.5 Albumin 4.3 Calcium Level 9.7 Alkaline Phosphatase 85 Aspartate Amino Transf (AST/SGOT) 174 Alanine Aminotransferase (ALT/SGPT) 67 Total Bilirubin 0.4 Sodium Level 144 Potassium Level 4.0 Chloride Level 109 Carbon Dioxide Level 24.8 Anion Gap 10 Estimat Glomerular Filtration Rate 108 Lipase 185 Thyroid Stimulating Hormone 3rd Gen 0.225 Salicylates Level 2.2 Acetaminophen Level LESS THAN 2.0 Ethyl Alcohol Level 235 Urine Opiates Screen NEG Urine Barbiturates Screen NEG Urine Amphetamines Screen NEG Urine Benzodiazepines Screen POS Urine Cocaine Screen NEG Urine Cannabinoids Screen NEG Diagnosis Primary Impression: Alcohol dependence Psychiatrically Cleared: Yes Med/ Other Pt Specific Info: No Change to Meds Disposition: 01 DISCHARGE HOME Condition: Stable Problem Qualifiers Primary Impression: Alcohol dependence Qualified Codes: F10.220 - Alcohol dependence with intoxication, uncomplicated [place] Glynn [facility] Jan 14, 2018 10:18
--- NOTE | 2018-01-14 10:39 | PD ---
Physical Exam Time Seen by Provider: 10:37 DOGULAS Barreto has evaluated the patient, lifted the Rose act and cleared the patient for discharge. Data Data Last Documented VS Vital Signs Date Time Temp Pulse Resp B/P (MAP) Pulse Ox O2 Delivery O2 Flow Rate FiO2 01/14/18 03:09 98.1 90 18 147/80 (102) 97 Room Air Orders Orders Complete Blood Count With Diff (01/13/18 20:19) Comprehensive Metabolic Panel (01/13/18 20:19) Thyroid Stimulating Hormone (01/13/18 20:19) Psych Screen (01/13/18 20:19) Drug Screen, Random Urine (01/13/18 20:19) Alcohol (Ethanol) (01/13/18 20:19) Salicylates (Aspirin) (01/13/18 20:19) Tylenol (Acetaminophen) (01/13/18 20:19) Ct Brain W/O Iv Contrast(Rout) (01/13/18 20:24) Alcohol Withdrawal Asmt-Ciwa ONCE (01/13/18 20:24) Ondansetron Odt (Zofran Odt) (01/13/18 20:30) Acetaminophen (Tylenol) (01/13/18 20:30) Flumazenil Inj (Romazicon Inj) (01/13/18 20:30) Lorazepam (Ativan) (01/13/18 20:30) Lorazepam Inj (Ativan Inj) (01/13/18 20:30) Lorazepam (Ativan) (01/13/18 20:30) Lorazepam Inj (Ativan Inj) (01/13/18 20:30) Lorazepam Inj (Ativan Inj) (01/13/18 20:30) Lorazepam Inj (Ativan Inj) (01/13/18 20:30) Diet Regular Basic (01/14/18 Breakfast) Lipase (01/14/18 08:03) Pantoprazole (Protonix) (01/14/18 08:15) Diet Regular Basic (01/14/18 Lunch) Labs Laboratory Tests Test 01/13/18 20:27 01/13/18 22:40 White Blood Count 5.4 TH/MM3 Red Blood Count 4.45 MIL/MM3 Hemoglobin 13.9 GM/DL Hematocrit 41.9 % Mean Corpuscular Volume 94.1 FL Mean Corpuscular Hemoglobin 31.3 PG Mean Corpuscular Hemoglobin Concent 33.2 % Red Cell Distribution Width 18.9 % Platelet Count 345 TH/MM3 Mean Platelet Volume 7.7 FL Neutrophils (%) (Auto) 50.0 % Lymphocytes (%) (Auto) 39.0 % Monocytes (%) (Auto) 6.2 % Eosinophils (%) (Auto) 2.2 % Basophils (%) (Auto) 2.6 % Neutrophils # (Auto) 2.7 TH/MM3 Lymphocytes # (Auto) 2.1 TH/MM3 Monocytes # (Auto) 0.3 TH/MM3 Eosinophils # (Auto) 0.1 TH/MM3 Basophils # (Auto) 0.1 TH/MM3 CBC Comment DIFF FINAL Differential Comment Blood Urea Nitrogen 7 MG/DL Creatinine 0.76 MG/DL Random Glucose 103 MG/DL Total Protein 8.5 GM/DL Albumin 4.3 GM/DL Calcium Level 9.7 MG/DL Alkaline Phosphatase 85 U/L Aspartate Amino Transf (AST/SGOT) 174 U/L Alanine Aminotransferase (ALT/SGPT) 67 U/L Total Bilirubin 0.4 MG/DL Sodium Level 144 MEQ/L Potassium Level 4.0 MEQ/L Chloride Level 109 MEQ/L Carbon Dioxide Level 24.8 MEQ/L Anion Gap 10 MEQ/L Estimat Glomerular Filtration Rate 108 ML/MIN Lipase 185 U/L Thyroid Stimulating Hormone 3rd Gen 0.225 uIU/ML Salicylates Level 2.2 MG/DL Acetaminophen Level LESS THAN 2.0 MCG/ML Ethyl Alcohol Level 235 MG/DL Urine Opiates Screen NEG Urine Barbiturates Screen NEG Urine Amphetamines Screen NEG Urine Benzodiazepines Screen POS Urine Cocaine Screen NEG Urine Cannabinoids Screen NEG MDM Supervised Visit with APOLLO: No Narrative Course DOUGLAS Samson has evaluated the patient, lifted the Rose act and cleared the patient for discharge. Patient contracts safety. Denies suicidal or homicidal ideations. Patient will be provided community resource packet to [facility] for follow-up. Has friends and family for support. Patient was medically cleared by alternate provider prior to psych screening. Patient has been evaluated by psychiatry and and is now cleared for discharge. Diagnosis Primary Impression: Alcohol dependence Qualified Codes: F10.220 - Alcohol dependence with intoxication, uncomplicated Referrals: [facility] (Out patient) [facility] Primary Care Physician Psychiatrist Sheridan [facility] Patient Instructions: Abuse of Alcohol (ED), Alcohol Dependence (ED), Alcohol Intoxication (ED), General Instructions Additional Instruction: Contract safety to your self and others Follow-up with psychiatry Follow-up with primary care provider Follow-up with Theo Hilliard Return to the emergency department immediately with worsening of symptoms Med/Other Pt SpecificInfo: No Change to Meds, No Meds Exist/No RX given Disposition: 01 DISCHARGE HOME Condition: Stable Patience Burgos [facility] Jan 14, 2018 10:39
== END 2018-01-14 11:00 | disposition home or self-care (01) ==
LOC: NEDAMB 19:57 → NEPJ 01-14 11:00
DX: F10.220 Alcohol dependence with intoxication, uncomplicated (principal); F17.200 Nicotine dependence, unspecified, uncomplicated; Y90.7 Blood alcohol level of 200-239 mg/100 ml; Z79.899 Other long term (current) drug therapy
CPT/HCPCS: 70450; 80053; 80307; 83690; 84443; 85025; 99283; J2060

== ENCOUNTER 2018-02-03 13:53 | Emergency (ER) | payer OTHER ==
[2018-02-03 14:04] VITALS: BP 131/73; PULSE 100; RESP 18; TEMP 98; O2SAT 95
[2018-02-03] MEDS ORDERED: SODIUM CHLOR 0.9% 1000 ML INJ 1,000 ML IV ONE (14:08)
--- NOTE | 2018-02-03 14:10 | PD ---
HPI Chief Complaint: Alcohol/Drug Intoxication Time Seen by Provider: 14:08 Travel History International Travel<30 days: No Contact w/Intl Traveler<30days: No Traveled to known affect area: No History of Present Illness HPI This is a 52-year-old male presents for evaluation of intoxication. Reportedly the patient was drinking at his mother's house when he fell asleep on the ground. He believes that he may have hit his head. He is complaining of a headache. He is an alcoholic, today he drank half a gallon of vodka. He has been seen here numerous times in the past for evaluation of alcohol intoxication. He is denying any chest pain, shortness of breath, dizziness, lightheadedness, blurred vision, abdominal pain, nausea or vomiting. He is a poor historian. PFSH Past Medical History Hx Anticoagulant Therapy: No Anemia: Yes Arthritis: Yes (RA) Asthma: No Autoimmune Disease: No Blood Disorders: Yes (HEPATITIS B AND C NO TREATMENT) Anxiety: Yes Depression: Yes Heart Rhythm Problems: No Cancer: No Cardiovascular Problems: No High Cholesterol: No Chemotherapy: No Chest Pain: Yes Congestive Heart Failure: No Cirrhosis: Yes COPD: Yes Cerebrovascular Accident: No Diabetes: No Diminished Hearing: No Endocrine: No Gastrointestinal Disorders: Yes (PANCREATITIS) GERD: Yes Genitourinary: No Headaches: Yes Hepatitis: Yes (B + C) Hiatal Hernia: No Heparin Induced Thrombocytopen: No Herniated Disk: Yes Hypertension: Yes Immune Disorder: No Implanted Vascular Access Dvce: Yes Insomnia: Yes Kidney Stones: No Musculoskeletal: No Neurologic: No Psychiatric: No Reproductive: No Respiratory: No Integumentary: Yes (HX IV DRUG USE) Immunizations Current: Yes Migraines: Yes Pancreatitis: Yes Pneumonia: Yes Radiation Therapy: No Renal Failure: No Seizures: No Sickle Cell Disease: No Sleep Apnea: No Thyroid Disease: No Ulcer: Yes PNEUMOCCOCAL Vaccine (Year): 2 Past Surgical History Abdominal Surgery: Yes (LIVER BIOPSY) AICD: No Arteriovenous Shunt: No Body Medical Devices: STEEL PLATE IN RIGHT ANKLE Cardiac Surgery: No Ear Surgery: No Endocrine Surgery: Yes (LIVER BIOPSY) Eye Surgery: No Genitourinary Surgery: No Gynecologic Surgery: No Hysterectomy: No Insulin Pump: No Joint Replacement: No Neurologic Surgery: No Oral Surgery: No Pacemaker: No Thoracic Surgery: Yes (CHEST TUBE- R/O TB 2009) Tonsillectomy: Yes Other Surgery: Yes (right ankle plate) Social History Alcohol Use: Yes (DAILY, VODKA 1/2 gallon) Tobacco Use: Yes (1/2 PPD) Substance Use: Yes Allergies-Medications (Allergen,Severity, Reaction): Coded Allergies: Penicillins (Verified Allergy, Severe, 02/03/18) prednisone (Verified Allergy, Severe, Rash, 02/03/18) Reported Meds & Prescriptions Reported Meds & Active Scripts Active Pantoprazole (Pantoprazole Sodium) 40 Mg Tab 40 Mg PO DAILY 30 Days Review of Systems ROS Limitations: Intoxication Except as stated in HPI: all other systems reviewed are Neg Physical Exam Exam Limitations: Intoxication Narrative GENERAL: Somewhat disheveled male in no acute distress. He appears intoxicated. SKIN: Warm and dry. HEAD: Atraumatic. Normocephalic. EYES: Pupils equal and round. No scleral icterus. No injection or drainage. ENT: No nasal bleeding or discharge. Mucous membranes pink and moist. NECK: Trachea midline. No JVD. CARDIOVASCULAR: Regular rate and rhythm. No murmur appreciated. RESPIRATORY: No accessory muscle use. Clear to auscultation. Breath sounds equal bilaterally. GASTROINTESTINAL: Abdomen soft, non-tender, nondistended. Hepatic and splenic margins not palpable. MUSCULOSKELETAL: No obvious deformities. No clubbing. No cyanosis. No edema. NEUROLOGICAL: Awake and alert. No obvious cranial nerve deficits. Motor grossly within normal limits. Slurred speech. Data Data Last Documented VS Vital Signs Date Time Temp Pulse Resp B/P (MAP) Pulse Ox O2 Delivery O2 Flow Rate FiO2 02/03/18 14:26 97 Nasal Cannula 2.00 02/03/18 14:08 100 02/03/18 14:04 98.0 18 Orders Orders Electrocardiogram (02/03/18 14:08) Complete Blood Count With Diff (02/03/18 14:08) Comprehensive Metabolic Panel (02/03/18 14:08) Magnesium (Mg) (02/03/18 14:08) Ckmb (Isoenzyme) Profile (02/03/18 14:08) Troponin I (02/03/18 14:08) Ct Brain W/O Iv Contrast(Rout) (02/03/18 14:08) Blood Glucose (02/03/18 14:08) Ecg Monitoring (02/03/18 14:08) Iv Access Insert/Monitor (02/03/18 14:08) Oximetry (02/03/18 14:08) Sodium Chloride 0.9% Flush (Ns Flush) (02/03/18 14:15) Sodium Chlor 0.9% 1000 Ml Inj (Ns 1000 M (02/03/18 14:08) Alcohol (Ethanol) (02/03/18 14:08) Ct Cerv Spine W/O Contrast (02/03/18 ) CKMB (02/03/18 14:25) CKMB% (02/03/18 14:25) Ed Discharge Order (02/03/18 17:34) Labs Laboratory Tests Test 02/03/18 14:25 White Blood Count 3.6 TH/MM3 Red Blood Count 3.97 MIL/MM3 Hemoglobin 12.1 GM/DL Hematocrit 36.1 % Mean Corpuscular Volume 91.0 FL Mean Corpuscular Hemoglobin 30.5 PG Mean Corpuscular Hemoglobin Concent 33.5 % Red Cell Distribution Width 19.9 % Platelet Count 183 TH/MM3 Mean Platelet Volume 7.5 FL Neutrophils (%) (Auto) 28.7 % Lymphocytes (%) (Auto) 56.2 % Monocytes (%) (Auto) 8.2 % Eosinophils (%) (Auto) 3.9 % Basophils (%) (Auto) 3.0 % Neutrophils # (Auto) 1.0 TH/MM3 Lymphocytes # (Auto) 2.0 TH/MM3 Monocytes # (Auto) 0.3 TH/MM3 Eosinophils # (Auto) 0.1 TH/MM3 Basophils # (Auto) 0.1 TH/MM3 CBC Comment DIFF FINAL Differential Comment Blood Urea Nitrogen 9 MG/DL Creatinine 0.78 MG/DL Random Glucose 122 MG/DL Total Protein 7.3 GM/DL Albumin 3.7 GM/DL Calcium Level 8.3 MG/DL Magnesium Level 1.8 MG/DL Alkaline Phosphatase 78 U/L Aspartate Amino Transf (AST/SGOT) 123 U/L Alanine Aminotransferase (ALT/SGPT) 28 U/L Total Bilirubin 0.2 MG/DL Sodium Level 146 MEQ/L Potassium Level 4.0 MEQ/L Chloride Level 108 MEQ/L Carbon Dioxide Level 30.1 MEQ/L Anion Gap 8 MEQ/L Estimat Glomerular Filtration Rate 105 ML/MIN Total Creatine Kinase 114 U/L Creatine Kinase MB 1.8 NG/ML Troponin I LESS THAN 0.02 NG/ML Ethyl Alcohol Level 301 MG/DL [facility] Medical Decision Making Medical Screen Exam Complete: Yes Emergency Medical Condition: Yes Medical Record Reviewed: Yes Differential Diagnosis Alcohol intoxication, closed head injury, syncope, electrolyte abnormality, arrhythmia Narrative Course The patient was placed on ECG monitoring pulse oximetry. A 12-lead EKG was obtained revealing sinus rhythm. CBC reveals W BC count of 3.6, hemoglobin 12.1. CMP reveals calcium 8.3 otherwise unremarkable. Cardiac enzymes negative. CT brain normal. Alcohol level is elevated at 301. At this point time the plan is to have the patient remain here until he is clinically sober and then he will be discharged. The patient's mother has arrived and would like to drive the patient home. He is able to ambulate without assistance. He is stable for discharge into his mother's care. Diagnosis Primary Impression: Alcohol intoxication Referrals: [facility]Other Pt SpecificInfo: No Change to Meds Disposition: 01 DISCHARGE HOME Condition: Stable José Miguel De Jesus February 03, 2018 14:10
[2018-02-03] MEDS ORDERED: SODIUM CHLORIDE 0.9% FLUSH 10 ML FLUSH IVF PRN (14:15)
[2018-02-03 14:26] VITALS: O2SAT 97
[2018-02-03 14:37] LABS: BASOPHIL # 0.1 TH/MM3 (0-0.2); EOSINOPHIL # 0.1 TH/MM3 (0-0.4); EOSINOPHIL % 3.9 % (0.0-4.0); HEMATOCRIT 36.1 % (39.0-51.0); HEMOGLOBIN 12.1 GM/DL (13.0-17.0); LYMPH % 56.2 % (9.0-44.0); MEAN CORPUSCULAR HEMOGLOBIN 30.5 PG (27.0-34.0); MEAN CORPUSCULAR HGB CONC 33.5 % (32.0-36.0); MEAN PLATELET VOLUME 7.5 FL (7.0-11.0); MONO % 8.2 % (0.0-8.0); MONOCYTE # 0.3 TH/MM3 (0-0.9); NEUT % 28.7 % (16.0-70.0); PLATELET COUNT 183 TH/MM3 (150-450); RED BLOOD COUNT 3.97 MIL/MM3 (4.50-5.90); RED CELL DISTRIBUTION WIDTH 19.9 % (11.6-17.2); WHITE BLOOD COUNT 3.6 TH/MM3 (4.0-11.0)
--- NOTE | 2018-02-03 14:56 | RADRPT ---
EXAM DATE/TIME: 02/03/2018 14:39 [place] COMPARISON: CT BRAIN W/O CONTRAST, January 13, 2018, 22:00. INDICATIONS : Possible fall. RADIATION DOSE: 50.23 CTDIvol (mGy) MEDICAL HISTORY : None SURGICAL HISTORY : None. ENCOUNTER: Initial ACUITY: 1 day PAIN SCALE: 0/10 LOCATION: cranial TECHNIQUE: Multiple contiguous axial images were obtained of the head. Using automated exposure control and adj ustment of the mA and/or kV according to patient size, radiation dose was kept as low as reasonably a chievable to obtain optimal diagnostic quality images. DICOM format image data is available electro nically for review and comparison. FINDINGS: CEREBRUM: The ventricles are normal for age. No evidence of midline shift, mass lesion, hemorrhage or acute in farction. No extra-axial fluid collections are seen. POSTERIOR FOSSA: The cerebellum and brainstem are intact. The 4th ventricle is midline. The cerebellopontine angle i s unremarkable. EXTRACRANIAL: The visualized portion of the orbits is intact. SKULL: The calvaria is intact. No evidence of skull fracture. CONCLUSION: Normal examination. Wesly Bean MD on February 03, 2018 at 14:53 Board Certified Radiologist. This report was verified electronically.
[2018-02-03 14:58] LABS: ALBUMIN 3.7 GM/DL (3.4-5.0); AST (GOT) 123 U/L (15-37); BICARBONATE 30.1 MEQ/L (21.0-32.0); BLOOD UREA NITROGEN 9 MG/DL (7-18); CALCIUM 8.3 MG/DL (8.5-10.1); CHLORIDE 108 MEQ/L (98-107); CREATININE 0.78 MG/DL (0.60-1.30); GLOMERULAR FILTRATION RATE 105 ML/MIN (>89); GLUCOSE,RANDOM 122 MG/DL (74-106); MAGNESIUM 1.8 MG/DL (1.5-2.5); SODIUM (NA) 146 MEQ/L (136-145)
[2018-02-03 15:03] LABS: ALKALINE PHOSPHATASE 78 U/L (45-117); ALT (GPT) 28 U/L (12-78); TOTAL BILIRUBIN ADULT 0.2 MG/DL (0.2-1.0); TOTAL PROTEIN 7.3 GM/DL (6.4-8.2); TROPONIN I LESS THAN 0.02 NG/ML (0.02-0.05)
--- NOTE | 2018-02-03 16:12 | RADRPT ---
EXAM DATE/TIME: 02/03/2018 14:39 [place] COMPARISON: CT BRAIN W/O CONTRAST, January 13, 2018, 22:00. INDICATIONS : Possible fall. RADIATION DOSE: 42.88 CTDIvol (mGy) MEDICAL HISTORY : None SURGICAL HISTORY : None. ENCOUNTER: Initial ACUITY: 1 day PAIN SCALE: 0/10 LOCATION: neck TECHNIQUE: Volumetric scanning of the cervical spine was performed. Multiplanar reconstructions in the sagittal, coronal and oblique axial planes were performed. Using automated exposure control and adjustment o f the mA and/or kV according to patient size, radiation dose was kept as low as reasonably achievable to obtain optimal diagnostic quality images. DICOM format image data is available electronically f or review and comparison. FINDINGS: VERTEBRAE: Normal vertebral body height. ALIGNMENT: No evidence of subluxation. C2-C3: The bony spinal canal is normal in size. No evidence of disc bulge or herniation. The neural forami na are bilaterally patent. C3-C4: The bony spinal canal is normal in size. No evidence of disc bulge or herniation. The neural forami na are bilaterally patent. There is mild facet arthritis bilaterally. C4-C5: The bony spinal canal is normal in size. No evidence of disc bulge or herniation. The neural forami na are bilaterally patent. There is mild facet arthritis bilaterally. C5-C6: There is a degenerated disc with broad-based, predominantly right-sided disc bulge. There is osteophy tic spurring from the vertebral endplates. There is encroachment of osteophytic spur and disc bulge o n the ventral thecal sac. There is moderate encroachment of osteophytic spur and disc bulge on the fo ramina bilaterally. This is slightly worse on the right than the left. There is facet arthritis bilat erally. C6-C7: The thecal space and neural foramina are adequate. The facet joints are intact. C7-T1: The bony spinal canal is normal in size. No evidence of disc bulge or herniation. The neural forami na are bilaterally patent. CONCLUSION: 1. No acute fracture identified. 2. Degenerative changes of the cervical spine most significant at C5-6. Roger Brown MD on February 03, 2018 at 16:07 Board Certified Radiologist. This report was verified electronically.
[2018-02-03 17:41] VITALS: BP 133/78; TEMP 97.8
--- NOTE | 2018-02-04 22:39 | EKG ---
Date Performed: 02/03/2018 Time Performed: 14:20:53 PTAGE: 52 years EKG: Sinus rhythm NORMAL ECG PREVIOUS TRACING : 12/21/2017 09.43 Since the previous tracing, no significant change noted DOCTOR: John Alexander Interpretating Date/Time 02/04/2018 22:38:08
--- NOTE | 2018-02-05 16:28 | PD ---
Physical Exam Narrative I, Dr. Galindo, have reviewed the advance practice practitioner's documentation and am in agreement, met with the patient face to face, made the diagnosis, and the medical decision making was done by me. *My assessment and Findings: Patient presents to the emergency department secondary to EtOH intoxication. States that he may have fallen and hit his head. It was difficult for me to get a history secondary to patient being intoxicated. He presented to the emergency department afebrile, slightly tachycardic at 100, remaining vital signs stable. Workup was positive for increased AST and EtOH level. Head CT was negative for any acute findings and C -spine CT showed degenerative changes at C5-C6. Patient was given IV fluids in the emergency department and monitored for sobriety. Patient was discharged and became more sober, can ambulate throughout the emergency department without difficulty, was alert and oriented. He was given information to [facility] for rehab. Data Data Last Documented VS Vital Signs Date Time Temp Pulse Resp B/P (MAP) Pulse Ox O2 Delivery O2 Flow Rate FiO2 02/03/18 17:41 97.8 76 16 133/78 (96) 98 Orders Orders Electrocardiogram (02/03/18 14:08) Complete Blood Count With Diff (02/03/18 14:08) Comprehensive Metabolic Panel (02/03/18 14:08) Magnesium (Mg) (02/03/18 14:08) Ckmb (Isoenzyme) Profile (02/03/18 14:08) Troponin I (02/03/18 14:08) Ct Brain W/O Iv Contrast(Rout) (02/03/18 14:08) Blood Glucose (02/03/18 14:08) Ecg Monitoring (02/03/18 14:08) Iv Access Insert/Monitor (02/03/18 14:08) Oximetry (02/03/18 14:08) Sodium Chloride 0.9% Flush (Ns Flush) (02/03/18 14:15) Sodium Chlor 0.9% 1000 Ml Inj (Ns 1000 M (02/03/18 14:08) Alcohol (Ethanol) (02/03/18 14:08) Ct Cerv Spine W/O Contrast (02/03/18 ) CKMB (02/03/18 14:25) CKMB% (02/03/18 14:25) Ed Discharge Order (02/03/18 17:34) Labs Laboratory Tests Test 02/03/18 14:25 White Blood Count 3.6 TH/MM3 Red Blood Count 3.97 MIL/MM3 Hemoglobin 12.1 GM/DL Hematocrit 36.1 % Mean Corpuscular Volume 91.0 FL Mean Corpuscular Hemoglobin 30.5 PG Mean Corpuscular Hemoglobin Concent 33.5 % Red Cell Distribution Width 19.9 % Platelet Count 183 TH/MM3 Mean Platelet Volume 7.5 FL Neutrophils (%) (Auto) 28.7 % Lymphocytes (%) (Auto) 56.2 % Monocytes (%) (Auto) 8.2 % Eosinophils (%) (Auto) 3.9 % Basophils (%) (Auto) 3.0 % Neutrophils # (Auto) 1.0 TH/MM3 Lymphocytes # (Auto) 2.0 TH/MM3 Monocytes # (Auto) 0.3 TH/MM3 Eosinophils # (Auto) 0.1 TH/MM3 Basophils # (Auto) 0.1 TH/MM3 CBC Comment DIFF FINAL Differential Comment Blood Urea Nitrogen 9 MG/DL Creatinine 0.78 MG/DL Random Glucose 122 MG/DL Total Protein 7.3 GM/DL Albumin 3.7 GM/DL Calcium Level 8.3 MG/DL Magnesium Level 1.8 MG/DL Alkaline Phosphatase 78 U/L Aspartate Amino Transf (AST/SGOT) 123 U/L Alanine Aminotransferase (ALT/SGPT) 28 U/L Total Bilirubin 0.2 MG/DL Sodium Level 146 MEQ/L Potassium Level 4.0 MEQ/L Chloride Level 108 MEQ/L Carbon Dioxide Level 30.1 MEQ/L Anion Gap 8 MEQ/L Estimat Glomerular Filtration Rate 105 ML/MIN Total Creatine Kinase 114 U/L Creatine Kinase MB 1.8 NG/ML Troponin I LESS THAN 0.02 NG/ML Ethyl Alcohol Level 301 MG/DL [facility] Supervised Visit with APOLLO: Yes Diagnosis Primary Impression: Alcohol intoxication Qualified Codes: F10.920 - Alcohol use, unspecified with intoxication, uncomplicated [facility] Instructions: General Instructions, Alcohol Intoxication (ED) Departure Forms: Tests/Procedures Disposition: 01 DISCHARGE HOME Condition: Stable Queta Galindo MD February 05, 2018 16:28
== END 2018-02-03 17:45 | disposition home or self-care (01) ==
LOC: NEPE 13:53
DX: F10.229 Alcohol dependence with intoxication, unspecified (principal); F17.200 Nicotine dependence, unspecified, uncomplicated; K21.9 Gastro-esophageal reflux disease without esophagitis; R00.0 Tachycardia, unspecified; Y90.8 Blood alcohol level of 240 mg/100 ml or more; Z79.899 Other long term (current) drug therapy
CPT/HCPCS: 70450; 72125; 80053; 80307; 82550; 82552; 83735; 84484; 85025; 93005; 96360; 99285; J7030

== ENCOUNTER 2018-02-06 15:05 | Emergency (ER) | END 2018-02-07 11:29 | disposition home or self-care (01) | DX: F10.229 Alcohol dependence with intoxication, unspecified (principal); F10.24 Alcohol dependence with alcohol-induced mood disorder; F12.90 Cannabis use, unspecified, uncomplicated; F17.200 Nicotine dependence, unspecified, uncomplicated; K21.9 Gastro-esophageal reflux disease without esophagitis; Y90.8 Blood alcohol level of 240 mg/100 ml or more; Z79.899 Other long term (current) drug therapy | CPT/HCPCS: 80053; 80307; 83690; 84443; 85025; 96361; 96365; 96375; 99284; J2060; J3411; J7030 ==

== ENCOUNTER 2018-02-10 23:03 | Observation (INO) | payer OTHER ==
[~2018-02-10] VITALS: Ht 190.5 cm; Wt 100.0 kg
[~2018-02-10 23:03] MED LIST changes: -CIPR-9 PO; -GAVISUS2 PO; -METR-1 PO; -TRAM50 PO; -ZOFR4TAB3 SL
--- NOTE | 2018-02-10 23:35 | PD ---
HPI Chief Complaint: Alcohol/Drug Intoxication Time Seen by Provider: 23:27 Travel History International Travel<30 days: No Contact w/Intl Traveler<30days: No Traveled to known affect area: No History of Present Illness HPI 52-year-old white male presents emergency department under [place] act by PD. This is a patient well-known to the ER staff and myself for chronic alcohol abuse. Patient allegedly had been drinking heavily once again. He had gotten into an argument with his stepfather. There is allegations that the patient became agitated and threatening using a hammer. He denies any suicidal ideation. He denies any homicidal ideation. He denies any toxic ingestions. He admits to his chronic alcohol abuse. He does complain of chronic abdominal discomfort. He denies vomiting. Symptoms are moderate. Exacerbated by alcohol. No alleviating factors. PFSH Past Medical History Hx Anticoagulant Therapy: No Anemia: Yes Arthritis: Yes (RA) Asthma: No Autoimmune Disease: No Blood Disorders: Yes (HEPATITIS B AND C NO TREATMENT) Anxiety: Yes Depression: Yes Heart Rhythm Problems: No Cancer: No Cardiovascular Problems: No High Cholesterol: No Chemotherapy: No Chest Pain: Yes Congestive Heart Failure: No Cirrhosis: Yes COPD: Yes Cerebrovascular Accident: No Diabetes: No Diminished Hearing: No Endocrine: No Gastrointestinal Disorders: Yes (PANCREATITIS) GERD: Yes Genitourinary: No Headaches: Yes Hepatitis: Yes (B + C) Hiatal Hernia: No Heparin Induced Thrombocytopen: No Herniated Disk: Yes Hypertension: Yes Immune Disorder: No Implanted Vascular Access Dvce: Yes Insomnia: Yes Kidney Stones: No Musculoskeletal: No Neurologic: No Psychiatric: No Reproductive: No Respiratory: No Integumentary: Yes (HX IV DRUG USE) Immunizations Current: Yes Migraines: Yes Pancreatitis: Yes Pneumonia: Yes Radiation Therapy: No Renal Failure: No Seizures: No Sickle Cell Disease: No Sleep Apnea: No Thyroid Disease: No Ulcer: Yes PNEUMOCCOCAL Vaccine (Year): 2 Past Surgical History Abdominal Surgery: Yes (LIVER BIOPSY) AICD: No Arteriovenous Shunt: No Body Medical Devices: STEEL PLATE IN RIGHT ANKLE Cardiac Surgery: No Ear Surgery: No Endocrine Surgery: Yes (LIVER BIOPSY) Eye Surgery: No Genitourinary Surgery: No Gynecologic Surgery: No Hysterectomy: No Insulin Pump: No Joint Replacement: No Neurologic Surgery: No Oral Surgery: No Pacemaker: No Thoracic Surgery: Yes (CHEST TUBE- R/O TB 2009) Tonsillectomy: Yes Other Surgery: Yes (right ankle plate) Social History Alcohol Use: Yes (DAILY, VODKA ) Tobacco Use: Yes (1/2 PPD) Substance Use: Yes Allergies-Medications (Allergen,Severity, Reaction): Coded Allergies: Penicillins (Verified Allergy, Severe, 02/07/18) prednisone (Verified Allergy, Severe, Rash, 02/07/18) Reported Meds & Prescriptions Reported Meds & Active Scripts Active Pantoprazole (Pantoprazole Sodium) 40 Mg Tab 40 Mg PO DAILY 30 Days Review of Systems General / Constitutional: No: Fever Eyes: No: Visual changes HENT: No: Headaches Cardiovascular: No: Chest Pain or Discomfort Respiratory: No: Shortness of Breath Gastrointestinal: Positive: Nausea, Abdominal Pain Genitourinary: No: Dysuria Musculoskeletal: No: Pain Skin: No Rash Neurologic: No: Weakness Psychiatric: Positive: Mood Disorder, Substance Abuse, No: Anxiety, Depression , Suicidal Ideations, Disorder of Thought, Homicidal Ideation Endocrine: No: Polydipsia Hematologic/Lymphatic: No: Easy Bruising Physical Exam Narrative GENERAL: Well-nourished, well-developed patient. Patient is heavily intoxicated. SKIN: Warm and dry. HEAD: Normocephalic and atraumatic. EYES: No scleral icterus. No injection or drainage. ENT: No nasal drainage noted. Mucous membranes pink. Airway patent. NECK: Supple, trachea midline. Moves head freely without obvious discomfort. CARDIOVASCULAR: Regular rate and rhythm without murmurs, gallops, or rubs. RESPIRATORY: Breath sounds equal bilaterally. No accessory muscle use. GASTROINTESTINAL: Abdomen soft, non-tender, nondistended. EXTREMITIES: No cyanosis or edema. BACK: Nontender without obvious deformity. No CVA tenderness. NEURO: Patient is alert and oriented. Ataxic. Nonfocal. Slurred speech. PSYCH: No delusions. No auditory or visual hallucinations. Data Data Last Documented VS Vital Signs Date Time Temp Pulse Resp B/P (MAP) Pulse Ox O2 Delivery O2 Flow Rate FiO2 02/10/18 23:37 98.2 94 16 155/100 (118) 99 Orders Orders Complete Blood Count With Diff (02/10/18 23:14) Comprehensive Metabolic Panel (02/10/18 23:14) Drug Screen, Random Urine (02/10/18 23:14) Alcohol (Ethanol) (02/10/18 23:14) Psych Screen (02/10/18 23:15) Labs Laboratory Tests Test 02/10/18 23:48 White Blood Count 4.0 TH/MM3 Red Blood Count 4.12 MIL/MM3 Hemoglobin 12.4 GM/DL Hematocrit 37.0 % Mean Corpuscular Volume 89.7 FL Mean Corpuscular Hemoglobin 30.0 PG Mean Corpuscular Hemoglobin Concent 33.5 % Red Cell Distribution Width 20.1 % Platelet Count 122 TH/MM3 Mean Platelet Volume 7.5 FL Neutrophils (%) (Auto) 39.4 % Lymphocytes (%) (Auto) 50.7 % Monocytes (%) (Auto) 5.4 % Eosinophils (%) (Auto) 3.1 % Basophils (%) (Auto) 1.4 % Neutrophils # (Auto) 1.6 TH/MM3 Lymphocytes # (Auto) 2.0 TH/MM3 Monocytes # (Auto) 0.2 TH/MM3 Eosinophils # (Auto) 0.1 TH/MM3 Basophils # (Auto) 0.1 TH/MM3 CBC Comment DIFF FINAL Differential Comment Blood Urea Nitrogen 5 MG/DL Creatinine 0.58 MG/DL Random Glucose 97 MG/DL Total Protein 7.8 GM/DL Albumin 4.4 GM/DL Calcium Level 8.7 MG/DL Alkaline Phosphatase 79 U/L Aspartate Amino Transf (AST/SGOT) 220 U/L Alanine Aminotransferase (ALT/SGPT) 35 U/L Total Bilirubin 0.7 MG/DL Sodium Level 150 MEQ/L Potassium Level 3.3 MEQ/L Chloride Level 111 MEQ/L Carbon Dioxide Level 29.1 MEQ/L Anion Gap 10 MEQ/L Estimat Glomerular Filtration Rate 147 ML/MIN Ethyl Alcohol Level 333 MG/DL MDM Medical Decision Making Medical Screen Exam Complete: Yes Emergency Medical Condition: Yes Medical Record Reviewed: Yes Interpretation(s) CBC & BMP Diagram 02/10/18 23:48 Total Protein 7.8, Albumin 4.4, Calcium Level 8.7, Alkaline Phosphatase 79, Aspartate Amino Transf (AST/SGOT) 220 H, Alanine Aminotransferase (ALT/SGPT) 35 , Total Bilirubin 0.7 Differential Diagnosis MDM: High Differential diagnoses: Schizophrenia, schizoaffective disorder, bipolar, anxiety, depression, adjustment reaction, mood disorder NOS, ODD, depressive disorder NOS, psychosis NOS, substance induced mood disorder,infection, electrolyte abnormality, malingering. Narrative Course Mental health screening discussed with the patient. Psychiatric screen ordered. The patient has been medically cleared. He will be allowed to sleep it off here in the ER will be evaluated by the psychiatrist in the morning. The patient is given 20 mEq of potassium p.o. This is medical clearance for psychiatric admission, chronic alcohol abuse with alcohol induced mood disorder Diagnosis Primary Impression: Medical clearance for psychiatric admission Additional Impression: Alcohol abuse with alcohol-induced mood disorder Condition: Stable [place] February 10, 2018 23:35
[2018-02-10 23:37] VITALS: BP 155/100; PULSE 94; RESP 16; TEMP 98.2; O2SAT 99
[2018-02-11] VITALS (7 sets, daily range): BP systolic 131–182; BP diastolic 87–113; PULSE 83–103; RESP 16–24; TEMP 98–98.5; O2SAT 95–100
[2018-02-11 00:26] LABS: AUTOMATED NEUTROPHIL # 1.6 TH/MM3 (1.8-7.7); BASOPHIL # 0.1 TH/MM3 (0-0.2); BASOPHIL % 1.4 % (0.0-2.0); EOSINOPHIL # 0.1 TH/MM3 (0-0.4); EOSINOPHIL % 3.1 % (0.0-4.0); HEMOGLOBIN 12.4 GM/DL (13.0-17.0); LYMPH % 50.7 % (9.0-44.0); MEAN CELL VOLUME 89.7 FL (80.0-100.0); MEAN CORPUSCULAR HGB CONC 33.5 % (32.0-36.0); MEAN PLATELET VOLUME 7.5 FL (7.0-11.0); MONO % 5.4 % (0.0-8.0); MONOCYTE # 0.2 TH/MM3 (0-0.9); NEUT % 39.4 % (16.0-70.0); PLATELET COUNT 122 TH/MM3 (150-450); RED BLOOD COUNT 4.12 MIL/MM3 (4.50-5.90); RED CELL DISTRIBUTION WIDTH 20.1 % (11.6-17.2)
[2018-02-11 00:33] LABS: ALBUMIN 4.4 GM/DL (3.4-5.0); ALT (GPT) 35 U/L (12-78); AST (GOT) 220 U/L (15-37); BICARBONATE 29.1 MEQ/L (21.0-32.0); BLOOD UREA NITROGEN 5 MG/DL (7-18); CALCIUM 8.7 MG/DL (8.5-10.1); CHLORIDE 111 MEQ/L (98-107); CREATININE 0.58 MG/DL (0.60-1.30); GLOMERULAR FILTRATION RATE 147 ML/MIN (>89); GLUCOSE,RANDOM 97 MG/DL (74-106); SODIUM (NA) 150 MEQ/L (136-145)
[2018-02-11 00:37] LABS: ALKALINE PHOSPHATASE 79 U/L (45-117); TOTAL BILIRUBIN ADULT 0.7 MG/DL (0.2-1.0); TOTAL PROTEIN 7.8 GM/DL (6.4-8.2)
[2018-02-11] MEDS ORDERED: POTASSIUM CHLORIDE 20 MEQ CONTROLLED RELEASE TAB PO ONE (01:15)
[2018-02-11] MEDS ORDERED: FLUMAZENIL 0.5 MG/5 ML VIAL IV PUSH PRN ×2 (09:30→16:45)
[2018-02-11] MEDS ORDERED: LORazepam 2 MG TAB PO PRN (09:30)
[2018-02-11] MEDS ORDERED: LORazepam 1 MG TAB PO PRN (09:30)
[2018-02-11] MEDS ORDERED: LORazepam 2 MG/ML VIAL IV PUSH PRN ×6 (09:30→16:45)
[2018-02-11] MEDS: LORazepam 2 MG/ML VIAL IV PUSH PRN ×3 (09:54→21:50)
[2018-02-11] MEDS ORDERED: LORazepam 2 MG/ML VIAL IM ONE ×2 (10:30→13:30)
[2018-02-11] MEDS ORDERED: chlordiazePOXIDE 25 MG CAP PO ONE ×2 (10:30→13:30)
--- NOTE | 2018-02-11 14:09 | PD.PSY.CON ---
Provisional Diagnosis Admission Date [place] I. Alcohol-induced mood disorder, alcohol and cannabis use disorder Ferrum II. Deferred Ferrum III. Herniated disc, hepatitis B, hepatitis C Ferrum IV. Multiple ER visits with a similar presentation, related with alcohol intoxication Ferrum V. 50 History of Present Illness Service Psychiatry Consult Requested By ER Reason for Consult Homicidal ideation against his mother Primary Care Physician No Primary Care Physician HPI The patient is a 52-year-old man, domiciled with his mother in [place], single, unemployed, on SSI, with psychiatric history of alcohol induced mood disorder, alcohol use disorder, marijuana use disorder, alcohol withdrawal , DTs, no previous psychiatric hospitalizations, no previous suicide attempts, but multiple ER visits with a similar complaint, he has been seen in the ER 14 time in 2018 due to alcohol-induced problems, 3 times this month, medical history hepatitis B, hepatitis C, lumbar herniated disc, who presents emergency department under [place] act by PD. This is a patient well-known to the ER staff and myself for chronic alcohol abuse. Patient allegedly had been drinking heavily once again. He had gotten into an argument with his stepfather. There is allegations that the patient became agitated and threatening using a hammer. He denies any suicidal ideation. He denies any homicidal ideation. He denies any toxic ingestions. He admits to his chronic alcohol abuse. He does complain of chronic abdominal discomfort. He denies vomiting. Symptoms are moderate. Exacerbated by alcohol. No alleviating factors. On psychiatric evaluation today the patient reports that he is okay, he is ready to go home. The patient says that he is not a problem "is my mother who is demented and is always inventing things". The patient reports good mood, he denies suicidal enemas ideation, he denies visual and auditory hallucinations and minimizes use of alcohol. The patient is actively withdrawing, with bilateral tremors and autonomic instability. I called the mother of the patient, her name is Gauri, , reports that she has been calling the police and her son at least every week due to her severe alcoholism. She states that the patient is going to kill himself and is going to kill his father "due to his irrational behavior when his drunk, which is every day". She says that she has being sending her son to the ER with the hope that one day "somebody can give a chance to go to a detox and to a rehabilitation program". Review of Systems Constitutional: DENIES: Diaphoretic episodes, Fatigue, Fever, Weight gain, Weight loss, Chills, Dizziness, Change in appetite, Night Sweats Endocrine: DENIES: Heat/cold intolerance, Polydipsia, Polyuria, Polyphagia Eyes: DENIES: Blurred vision, Diplopia, Eye inflammation, Eye pain, Vision loss , Photosensitivity, Double Vision Ears, nose, mouth, throat: DENIES: Tinnitus, Hearing loss, Vertigo, Nasal discharge, Oral lesions, Throat pain, Hoarseness, Ear Pain, Running Nose, Epistaxis, Sinus Pain, Toothache, Odynophagia Respiratory: DENIES: Apneas, Cough, Snoring, Wheezing, Hemoptysis, Sputum production, Shortness of breath Cardiovascular: DENIES: Chest pain, Palpitations, Syncope, Dyspnea on Exertion , PND, Lower Extremity Edema, Orthopnea, Claudication Gastrointestinal: DENIES: Abdominal pain, Black stools, Bloody stools, Constipation, Diarrhea, Nausea, Vomiting, Difficulty Swallowing, Anorexia Genitourinary: DENIES: Sexual dysfunction, Urinary frequency, Urinary incontinence, Urgency, Hematuria, Dysuria, Nocturia, Penile Discharge, Testicular Pain, Testicular Swelling Musculoskeletal: DENIES: Joint pain, Muscle aches, Stiffness, Joint Swelling, Back pain, Neck pain Integumentary: DENIES: Abnormal pigmentation, Nail changes, Pruritus, Rash Hematologic/lymphatic: DENIES: Bruising, Lymphadenopathy Immunologic/allergic: DENIES: Eczema, Urticaria Neurologic: COMPLAINS OF: Tremor, DENIES: Abnormal gait, Headache, Localized weakness, Paresthesias, Seizures, Speech Problems, Poor Balance Psychiatric: COMPLAINS OF: Agitation, DENIES: Anxiety, Confusion, Mood changes , Depression, Hallucinations, Suicidal Ideation, Homicidal Ideation, Delusions Past Family Social History Coded Allergies: Penicillins (Verified Allergy, Severe, 02/07/18) prednisone (Verified Allergy, Severe, Rash, 02/07/18) Active Scripts Pantoprazole (Pantoprazole) 40 Mg Tab, 40 MG PO DAILY for ulcer for 30 Days, # 30 TAB 0 Refills Prov:Luis Armando Maher MD 01/05/18 Current Medications Medications (Trade) Dose Ordered Sig/Karlos Route Start Time Stop Time Status Last Admin (Romazicon Inj) 0.2 mg Q1M PRN IV PUSH 02/11/18 09:30 (Ativan) 1 mg Q4H PRN PO 02/11/18 09:30 (Ativan Inj) 1 mg Q4H PRN IV PUSH 02/11/18 09:30 (Ativan) 2 mg Q2H PRN PO 02/11/18 09:30 (Ativan Inj) 2 mg Q2H PRN IV PUSH 02/11/18 09:30 02/11/18 09:54 (Ativan Inj) 2 mg Q1H PRN IV PUSH 02/11/18 09:30 (Ativan Inj) 2 mg Q15M PRN IV PUSH 02/11/18 09:30 Family Psych History No family psychiatric history Social History Patient was born and raised in [place], he lives in [place] with his mother and stepfather, single, unemployed, supported by [employer], his highest level of education is 11th grade Patient's Strengths (min. 2) Family support Physical Exam Bilateral tremors, sweating, mild agitation, withdrawing from alcohol Vital Signs Vital Signs Date Time Temp Pulse Resp B/P (MAP) Pulse Ox O2 Delivery O2 Flow Rate FiO2 02/11/18 13:16 101 18 143/101 (115) 02/11/18 05:30 95 Room Air 02/10/18 23:37 98.2 Lab Results Test 02/10/18 23:48 White Blood Count 4.0 TH/MM3 Red Blood Count 4.12 MIL/MM3 Hemoglobin 12.4 GM/DL Hematocrit 37.0 % Mean Corpuscular Volume 89.7 FL Mean Corpuscular Hemoglobin 30.0 PG Mean Corpuscular Hemoglobin Concent 33.5 % Red Cell Distribution Width 20.1 % Platelet Count 122 TH/MM3 Mean Platelet Volume 7.5 FL Neutrophils (%) (Auto) 39.4 % Lymphocytes (%) (Auto) 50.7 % Monocytes (%) (Auto) 5.4 % Eosinophils (%) (Auto) 3.1 % Basophils (%) (Auto) 1.4 % Neutrophils # (Auto) 1.6 TH/MM3 Lymphocytes # (Auto) 2.0 TH/MM3 Monocytes # (Auto) 0.2 TH/MM3 Eosinophils # (Auto) 0.1 TH/MM3 Basophils # (Auto) 0.1 TH/MM3 CBC Comment DIFF FINAL Differential Comment Blood Urea Nitrogen 5 MG/DL Creatinine 0.58 MG/DL Random Glucose 97 MG/DL Total Protein 7.8 GM/DL Albumin 4.4 GM/DL Calcium Level 8.7 MG/DL Alkaline Phosphatase 79 U/L Aspartate Amino Transf (AST/SGOT) 220 U/L Alanine Aminotransferase (ALT/SGPT) 35 U/L Total Bilirubin 0.7 MG/DL Sodium Level 150 MEQ/L Potassium Level 3.3 MEQ/L Chloride Level 111 MEQ/L Carbon Dioxide Level 29.1 MEQ/L Anion Gap 10 MEQ/L Estimat Glomerular Filtration Rate 147 ML/MIN Ethyl Alcohol Level 333 MG/DL Mental Status Examination Appearance: Appropriate Consciousness: Alert Orientation: x4 Motor Activity: Normal gait Speech: Unremarkable Language: Adequate Fund of Knowledge: Adequate Attention and Concentration: Adequate Memory: Unremarkable Mood: Irritable Affect: Irritable Thought Process & Associations: Intact Thought Content: Appropriate Hallucination Type: None Delusion Type: None Suicidal Ideation: No Suicidal Plan: No Suicidal Intention: No Homicidal Ideation: No Homicidal Plan: No Homicidal Intention: No Insight: Poor Judgment: Poor Assessment & Plan Problem List: (1) Alcohol abuse with alcohol-induced mood disorder ICD Codes: F10.14 - Alcohol abuse with alcohol-induced mood disorder Status: Acute Assessment & Plan: On psychiatric evaluation today the patient presents calm, cooperative, but a little bit agitated, with bilateral upper extremity tremors, sweating, shakiness in the context of alcohol withdrawal. The patient denies symptomatology of depression, he minimizes his alcohol use disorder, denies suicidal enemas ideation, denies visual and auditory hallucinations. The patient has being in the ER 14 times in 2018, including 3 times in the present month always with alcohol intoxication. What is more concerning is that the last times that he has been here is because in the context of alcohol intoxication he has being threatening her mother and his stepfather has become quite aggressive at home. Given the risk of danger to self and other, his poor insight about alcoholism, and the level of damage that he is doing to himself with persistent alcohol use, and going to keep the patient on the Rose act and cannot transfer him to [facility] for treatment of alcoholism and potential mood disorder. I will start a CIWA protocol here in the [facility]. Patient will be presented to [facility] to be transferred. Extensive support, motivation and psychoeducation provided. Assessment & Plan Estimated LOS: days Lucius Cifuentes MD February 11, 2018 14:09
[2018-02-11] MEDS ORDERED: SODIUM CHLOR 0.9% 1000 ML INJ 1,000 ML IV SCH (16:18)
--- NOTE | 2018-02-11 16:18 | PD ---
Physical Exam Date Seen by Provider: February 11, 2018 Time Seen by Provider: 16:14 Narrative 52-year-old male previously medically cleared for psychiatric evaluation, has been requiring high doses of lorazepam and Librium through the day per the [facility] protocol, however the patient remains tachycardic and mildly hypertensive. Patient has nausea and vomiting according to nursing staff and the J pod. Patient will be moved to a medical bed, and admitted due to his persistent alcohol withdrawal symptoms. Data Data Last Documented VS Vital Signs Date Time Temp Pulse Resp B/P (MAP) Pulse Ox O2 Delivery O2 Flow Rate FiO2 02/11/18 15:45 99 24 160/102 (121) 99 Room Air 02/10/18 23:37 98.2 Orders Orders Complete Blood Count With Diff (02/10/18 23:14) Comprehensive Metabolic Panel (02/10/18 23:14) Drug Screen, Random Urine (02/10/18 23:14) Alcohol (Ethanol) (02/10/18 23:14) Psych Screen (02/10/18 23:15) Potassium Chloride (Kcl) (02/11/18 01:15) Diet Regular Basic (02/11/18 Breakfast) Alcohol Withdrawal [facility] Q4HX18 (02/11/18 09:17) Flumazenil Inj (Romazicon Inj) (02/11/18 09:30) Lorazepam (Ativan) (02/11/18 09:30) Lorazepam Inj (Ativan Inj) (02/11/18 09:30) Lorazepam (Ativan) (02/11/18 09:30) Lorazepam Inj (Ativan Inj) (02/11/18 09:30) Lorazepam Inj (Ativan Inj) (02/11/18 09:30) Lorazepam Inj (Ativan Inj) (02/11/18 09:30) Diet Regular Basic (02/11/18 Lunch) Lorazepam Inj (Ativan Inj) (02/11/18 10:30) Chlordiazepoxide (Librium) (02/11/18 10:30) Chlordiazepoxide (Librium) (02/11/18 13:30) Lorazepam Inj (Ativan Inj) (02/11/18 13:30) Complete Blood Count With Diff (02/11/18 16:18) Comprehensive Metabolic Panel (02/11/18 16:18) Lipase (02/11/18 16:18) Lactic Acid (02/11/18 16:18) Urinalysis - C+S If Indicated (02/11/18 16:18) Iv Access Insert/Monitor (02/11/18 16:18) Ecg Monitoring (02/11/18 16:18) Oximetry (02/11/18 16:18) Sodium Chlor 0.9% 1000 Ml Inj (Ns 1000 M (02/11/18 16:18) Sodium Chloride 0.9% Flush (Ns Flush) (02/11/18 16:30) Electrocardiogram (02/11/18 16:18) Promethazine Inj (Phenergan Inj) (02/11/18 16:30) Place In Observation (02/11/18 ) Vital Signs (Adult) Q4H (02/11/18 16:40) Bedside Glucose SHELLEY.CSUGAR (02/11/18 16:40) Intake + Output SHELLEY.QSHIFT (02/11/18 16:40) Neuro Checks Q4H (02/11/18 16:40) Alcohol Withdrawal [facility] Q4HX18 (02/11/18 16:40) ^ Seizure Precautions (02/11/18 16:40) Diet Heart Healthy (02/11/18 Dinner) Sodium Chloride 0.9% Flush (Ns Flush) (02/11/18 16:45) Sodium Chloride 0.9% Flush (Ns Flush) (02/11/18 21:00) Thiamine (Vit B1) (Vitamin B1) (02/12/18 09:00) Multivitamins-Minerals Therap (Theragran (02/12/18 09:00) Clonidine (Catapres) (02/11/18 16:45) Consult Cm-Etoh Abuse Dc Plan (02/11/18 ) Flumazenil Inj (Romazicon Inj) (02/11/18 16:45) Lorazepam (Ativan) (02/11/18 16:45) Lorazepam Inj (Ativan Inj) (02/11/18 16:45) Lorazepam (Ativan) (02/11/18 16:45) Lorazepam Inj (Ativan Inj) (02/11/18 16:45) Lorazepam Inj (Ativan Inj) (02/11/18 16:45) Lorazepam Inj (Ativan Inj) (02/11/18 16:45) Labs Laboratory Tests Test 02/10/18 23:48 White Blood Count 4.0 TH/MM3 Red Blood Count 4.12 MIL/MM3 Hemoglobin 12.4 GM/DL Hematocrit 37.0 % Mean Corpuscular Volume 89.7 FL Mean Corpuscular Hemoglobin 30.0 PG Mean Corpuscular Hemoglobin Concent 33.5 % Red Cell Distribution Width 20.1 % Platelet Count 122 TH/MM3 Mean Platelet Volume 7.5 FL Neutrophils (%) (Auto) 39.4 % Lymphocytes (%) (Auto) 50.7 % Monocytes (%) (Auto) 5.4 % Eosinophils (%) (Auto) 3.1 % Basophils (%) (Auto) 1.4 % Neutrophils # (Auto) 1.6 TH/MM3 Lymphocytes # (Auto) 2.0 TH/MM3 Monocytes # (Auto) 0.2 TH/MM3 Eosinophils # (Auto) 0.1 TH/MM3 Basophils # (Auto) 0.1 TH/MM3 CBC Comment DIFF FINAL Differential Comment Blood Urea Nitrogen 5 MG/DL Creatinine 0.58 MG/DL Random Glucose 97 MG/DL Total Protein 7.8 GM/DL Albumin 4.4 GM/DL Calcium Level 8.7 MG/DL Alkaline Phosphatase 79 U/L Aspartate Amino Transf (AST/SGOT) 220 U/L Alanine Aminotransferase (ALT/SGPT) 35 U/L Total Bilirubin 0.7 MG/DL Sodium Level 150 MEQ/L Potassium Level 3.3 MEQ/L Chloride Level 111 MEQ/L Carbon Dioxide Level 29.1 MEQ/L Anion Gap 10 MEQ/L Estimat Glomerular Filtration Rate 147 ML/MIN Ethyl Alcohol Level 333 MG/DL [facility] Medical Record Reviewed: Yes Supervised Visit with APOLLO: Yes Differential Diagnosis EtOH withdrawal. Delirium tremens. Nausea and vomiting. Electrolyte imbalance. Narrative Course Labs are reordered including CBC, CMP, lactic acid, lipase, and urinalysis. Patient is given 25 mg Phenergan IM. Patient is given 1000 mL of normal saline bolus. Calls placed to the hospitalist for admission Patient discussed with Dr. Silva who agreed to admit the patient for alcohol withdrawal syndrome. Diagnosis Primary Impression: Medical clearance for psychiatric admission Additional Impressions: Alcohol abuse with alcohol-induced mood disorder Alcohol withdrawal Qualified Codes: F10.239 - Alcohol dependence with withdrawal, unspecified Admitting Information Admitting Physician Requests: Observation Condition: Stable Buddy Salomon February 11, 2018 16:18
[2018-02-11] MEDS ORDERED: PROMETHAZINE INJ 25 MG/ML VIAL IM ONE (16:30)
[2018-02-11] MEDS ORDERED: SODIUM CHLORIDE 0.9% FLUSH 10 ML FLUSH IV FLUSH PRN ×2 (16:30→16:45)
[2018-02-11] MEDS ORDERED: cloNIDine HCL 0.1 MG TAB PO PRN (16:45)
[2018-02-11] MEDS ORDERED: cloNIDine HCL 0.1 MG TAB PO ONE (16:45)
--- NOTE | 2018-02-11 17:24 | HHI.HP ---
HPI Service [facility] Primary Care Physician No Primary Care Physician Admission Diagnosis Alcohol withdrawl syndrome Diagnoses: Travel History International Travel<30 Days: No Contact w/Intl Traveler <30 Da: No Traveled to Known Affected Are: No History of Present Illness Patient presented due to agitation at home, apparently punched a wall, was yelling. Patient reports a 2 day history of nausea and nonbloody says he feels like he is in acute alcohol withdrawal. He also reports a 2 day history of constant sharp nonradiating epigastric pain which she says is similar to his chronic pancreatitis denies any chest pain or shortness of breath. Review of Systems Except as stated in HPI: all other systems reviewed are Neg Past Family Social History Past Medical History History of alcohol withdrawal Chronic alcoholism Peptic ulcer disease Chronic pancreatitis Past Surgical History EGD/colonoscopy. Right ankle with plate Reported Medications Reported Meds & Active Scripts Active Pantoprazole (Pantoprazole Sodium) 40 Mg Tab 40 Mg PO DAILY 30 Days Allergies: Coded Allergies: Penicillins (Verified Allergy, Severe, 02/07/18) prednisone (Verified Allergy, Severe, Rash, 02/07/18) Family History Mother with Alzheimer's. Father is estranged Social History Patient smokes 5-6 cigarettes per day for the past 10 years. Patient takes half a gallon of vodka per day. Denies illicit drugs. Physical Exam Vital Signs Vital Signs Date Time Temp Pulse Resp B/P (MAP) Pulse Ox O2 Delivery O2 Flow Rate FiO2 02/11/18 15:45 99 24 160/102 (121) 99 Room Air 02/11/18 13:16 101 18 143/101 (115) 02/11/18 10:27 103 18 168/113 (131) 02/11/18 05:30 90 19 131/87 (102) 95 Room Air 02/10/18 23:37 98.2 94 16 155/100 (118) 99 Physical Exam GENERAL: This is a well-nourished, well-developed patient, in no apparent distress. He is alert and oriented 3. SKIN: No rashes, ecchymoses or lesions. Cool and dry. HEAD: Atraumatic. Normocephalic. No temporal or scalp tenderness. EYES: Pupils equal round and reactive. Extraocular motions intact. No scleral icterus. No injection or drainage. ENT: Nose without bleeding, purulent drainage or septal hematoma. Throat without erythema, tonsillar hypertrophy or exudate. Uvula midline. Airway patent. NECK: Trachea midline. No JVD or lymphadenopathy. Supple, nontender, no meningeal signs. CARDIOVASCULAR: Regular rate and rhythm without murmurs, gallops, or rubs. RESPIRATORY: Clear to auscultation. Breath sounds equal bilaterally. No wheezes , rales, or rhonchi. GASTROINTESTINAL: Abdomen soft, nondistended. Tenderness to moderate palpation in the epigastrium. No hepato-splenomegaly, or palpable masses. No guarding. MUSCULOSKELETAL: Extremities without clubbing, cyanosis, or edema. No joint tenderness, effusion, or edema noted. No calf tenderness. Negative Homans sign bilaterally. NEUROLOGICAL: Awake and alert. Cranial nerves II through XII intact. Patient is shaking in bilateral upper and lower extremities. Motor and sensory grossly within normal limits, with the exception of ataxia bilateral upper and lower extremities.. Five out of 5 muscle strength in all muscle groups. Normal speech. Laboratory Laboratory Tests Test 02/10/18 23:48 White Blood Count 4.0 Red Blood Count 4.12 Hemoglobin 12.4 Hematocrit 37.0 Mean Corpuscular Volume 89.7 Mean Corpuscular Hemoglobin 30.0 Mean Corpuscular Hemoglobin Concent 33.5 Red Cell Distribution Width 20.1 Platelet Count 122 Mean Platelet Volume 7.5 Neutrophils (%) (Auto) 39.4 Lymphocytes (%) (Auto) 50.7 Monocytes (%) (Auto) 5.4 Eosinophils (%) (Auto) 3.1 Basophils (%) (Auto) 1.4 Neutrophils # (Auto) 1.6 Lymphocytes # (Auto) 2.0 Monocytes # (Auto) 0.2 Eosinophils # (Auto) 0.1 Basophils # (Auto) 0.1 CBC Comment DIFF FINAL Differential Comment Blood Urea Nitrogen 5 Creatinine 0.58 Random Glucose 97 Total Protein 7.8 Albumin 4.4 Calcium Level 8.7 Alkaline Phosphatase 79 Aspartate Amino Transf (AST/SGOT) 220 Alanine Aminotransferase (ALT/SGPT) 35 Total Bilirubin 0.7 Sodium Level 150 Potassium Level 3.3 Chloride Level 111 Carbon Dioxide Level 29.1 Anion Gap 10 Estimat Glomerular Filtration Rate 147 Ethyl Alcohol Level 333 Result Diagram: 02/10/18234702/10/182347 Caprini VTE Risk Assessment Caprini VTE Risk Assessment: No/Low Risk (score <= 1) Caprini Risk Assessment Model Point Value = 1 Point Value = 2 Point Value = 3 Point Value = 5 Age 41-60 Minor surgery BMI > 25 kg/m2 Swollen legs Varicose veins or History of unexplained or recurrent spontaneous Oral contraceptives or hormone replacement Sepsis (< 1 month) Serious lung disease, including pneumonia (< 1 month) Abnormal pulmonary function Acute myocardial infarction Congestive heart failure (< 1 month) History of inflammatory bowel disease Medical patient at bed rest Age 61-74 Arthroscopic surgery Major open surgery (> 45 min) Laparoscopic surgery (> 45 min) Malignancy Confined to bed (> 72 hours) Immobilizing plaster cast Central venous access Age >= 75 History of VTE Family history of VTE Factor V Leiden Prothrombin [id number] Lupus anticoagulant Anticardiolipin antibodies Elevated serum homocysteine Heparin-induced thrombocytopenia Other congenital or acquired thrombophilia Stroke (< 1 month) Elective arthroplasty Hip, pelvis, or leg fracture Acute spinal cord injury (< 1 month) Prophylaxis Regimen Total Risk Factor Score Risk Level Prophylaxis Regimen 0-1 Low Early ambulation 2 Moderate Order ONE of the following: *Sequential Compression Device (SCD) *Heparin 5000 units SQ BID 3-4 Higher Order ONE of the following medications: *Heparin 5000 units SQ TID *Enoxaparin/Lovenox 40 mg SQ daily (WT < 150 kg, CrCl > 30 mL/min) *Enoxaparin/Lovenox 30 mg SQ daily (WT < 150 kg, CrCl > 10-29 mL/min) *Enoxaparin/Lovenox 30 mg SQ BID (WT < 150 kg, CrCl > 30 mL/min) AND/OR *Sequential Compression Device (SCD) 5 or more Highest Order ONE of the following medications: *Heparin 5000 units SQ TID (Preferred with Epidurals) *Enoxaparin/Lovenox 40 mg SQ daily (WT < 150 kg, CrCl > 30 mL/min) *Enoxaparin/Lovenox 30 mg SQ daily (WT < 150 kg, CrCl > 10-29 mL/min) *Enoxaparin/Lovenox 30 mg SQ BID (WT < 150 kg, CrCl > 30 mL/min) AND *Sequential Compression Device (SCD) Assessment and Plan Assessment and Plan //Acute alcohol withdrawal -Recommend patient go to alcohol rehab after discharge. -With hypertension in the 160s, tachycardia. History of severe alcohol withdrawal. -Schedule Librium. Schedule thiamine. CIWA protocol. //Nausea and vomiting. Likely secondary to alcohol withdrawal. Zofran as needed. //Epigastric abdominal discomfort //History of chronic pancreatitis -Order lipase and LFTs. //Hypernatremia, hypokalemia -Likely secondary to lab error. //Elevated AST. Likely secondary to chronic alcoholism. CK is pending. //Tobacco abuse. Cessation counseling provided. Physician Certification 2 Midnight Certification Type: Admission for Inpatient Services Order for Inpatient Services OBSERVATION Estimated LOS (days): 2 OBSERVATION Post-Hospital Plan: Inpatient Rehab Ryan Silva MD February 11, 2018 17:24
[2018-02-11] MEDS: chlordiazePOXIDE 25 MG CAP PO SCH (17:48)
[2018-02-11] MEDS ORDERED: THIAMINE HCL 100 MG TAB PO ONE (18:00)
[2018-02-11 18:15] LABS: AUTOMATED NEUTROPHIL # 1.8 TH/MM3 (1.8-7.7); BASOPHIL % 0.7 % (0.0-2.0); EOSINOPHIL % 0.9 % (0.0-4.0); HEMATOCRIT 38.2 % (39.0-51.0); HEMOGLOBIN 12.6 GM/DL (13.0-17.0); LYMPH % 31.3 % (9.0-44.0); MEAN CELL VOLUME 90.6 FL (80.0-100.0); MEAN CORPUSCULAR HEMOGLOBIN 29.8 PG (27.0-34.0); MEAN CORPUSCULAR HGB CONC 32.9 % (32.0-36.0); MEAN PLATELET VOLUME 8.1 FL (7.0-11.0); MONO % 9.2 % (0.0-8.0); MONOCYTE # 0.3 TH/MM3 (0-0.9); NEUT % 57.9 % (16.0-70.0); PLATELET COUNT 100 TH/MM3 (150-450); RED BLOOD COUNT 4.22 MIL/MM3 (4.50-5.90); RED CELL DISTRIBUTION WIDTH 20.9 % (11.6-17.2); WHITE BLOOD COUNT 3.2 TH/MM3 (4.0-11.0)
[2018-02-11 18:30] LABS: ALBUMIN 4.1 GM/DL (3.4-5.0); ALKALINE PHOSPHATASE 79 U/L (45-117); ALT (GPT) 36 U/L (12-78); AST (GOT) 196 U/L (15-37); BICARBONATE 28.6 MEQ/L (21.0-32.0); BLOOD UREA NITROGEN 6 MG/DL (7-18); CALCIUM 8.8 MG/DL (8.5-10.1); CHLORIDE 103 MEQ/L (98-107); CREATININE 0.61 MG/DL (0.60-1.30); GLOMERULAR FILTRATION RATE 139 ML/MIN (>89); GLUCOSE,RANDOM 106 MG/DL (74-106); SODIUM (NA) 140 MEQ/L (136-145); TOTAL BILIRUBIN ADULT 1.2 MG/DL (0.2-1.0); TOTAL PROTEIN 7.6 GM/DL (6.4-8.2)
[2018-02-11] MEDS: SODIUM CHLOR 0.9% 1000 ML INJ 1,000 ML IV SCH (18:42)
[2018-02-11] MEDS: SODIUM CHLORIDE 0.9% FLUSH 10 ML FLUSH IV FLUSH SCH (21:50)
[2018-02-12] VITALS (8 sets, daily range): BP systolic 132–179; BP diastolic 89–102; PULSE 78–88; RESP 16–20; TEMP 97.9–98.4; O2SAT 96–99
[2018-02-12] MEDS: ONDANSETRON ODT 4 MG TAB SL PRN ×3 (00:57→15:34)
[2018-02-12] MEDS: LORazepam 2 MG/ML VIAL IV PUSH PRN (03:19)
[2018-02-12] MEDS: SODIUM CHLOR 0.9% 1000 ML INJ 1,000 ML IV SCH ×2 (04:25→14:41)
[2018-02-12] MEDS: SODIUM CHLORIDE 0.9% FLUSH 10 ML FLUSH IV FLUSH SCH ×2 (08:45→20:44)
[2018-02-12] MEDS: MULTIVITAMINS/MINERALS THERAPEUTIC TAB PO SCH (08:45)
[2018-02-12] MEDS: LORazepam 2 MG TAB PO PRN ×2 (08:45→18:48)
[2018-02-12] MEDS: chlordiazePOXIDE 25 MG CAP PO SCH ×3 (08:45→17:51)
[2018-02-12] MEDS: THIAMINE HCL 100 MG TAB PO SCH (08:45)
[2018-02-12 09:36] LABS: BACTERIA, URINE OCC /hpf; BILIRUBIN, URINE NEG (NEG); BLOOD, URINE SMALL (NEG); GLUCOSE,URINE NEG (NEG); KETONE, URINE NEG (NEG); NITRITE,URINE NEG (NEG); PH, URINE 7.5 (5.0-8.5); URINE COLOR YELLOW (YELLW/STRAW); URINE LEUKOCYTE ESTERASE NEG (NEG)
--- NOTE | 2018-02-12 09:41 | HHI.PR ---
Subjective Remarks Follow-up on patient with nausea, epigastric pain, alcohol withdrawal. Patient seen and examined. Patient is complaining of abdominal pain, nausea and vomiting. States he is afraid to eat anything. He reports multiple episodes of diarrhea overnight. He denies any fever chills. Denies any cough, chest pain or shortness of breath. States he feels his "chronic pancreatitis is flaring up". Patient reports he drinks a pint to 1/5 of vodka a day and was drinking just before coming into the ED. He denies any auditory or visual hallucinations. Objective Vitals Vital Signs Date Time Temp Pulse Resp B/P (MAP) Pulse Ox O2 Delivery O2 Flow Rate FiO2 02/12/18 04:09 98.3 78 16 155/92 (113) 96 02/12/18 00:13 98.4 86 16 133/95 (108) 98 02/11/18 20:32 98.5 90 16 148/94 (112) 96 02/11/18 18:36 02/11/18 18:19 98.0 83 18 182/108 (132) 100 02/11/18 17:20 92 16 98 Room Air 02/11/18 17:20 90 16 170/106 (127) 99 Room Air 02/11/18 15:45 99 24 160/102 (121) 99 Room Air 02/11/18 13:16 101 18 143/101 (115) 02/11/18 10:27 103 18 168/113 (131) I/O 02/11/18 02/11/18 02/11/18 02/12/18 02/12/18 02/12/18 07:00 15:00 23:00 07:00 15:00 23:00 Intake Total 1000 ml Balance 1000 ml Intake IV Total 1000 ml Result Diagram: 02/11/18 1735 02/11/18 1735 Objective Remarks GENERAL: This is a well-nourished, well-developed unkempt male patient , in no apparent distress. He is alert and oriented 3. Lying in hospital bed. SKIN: No rashes, ecchymoses or lesions. Warm and dry. HEAD: Atraumatic. Normocephalic. No temporal or scalp tenderness. EYES: Pupils equal round and reactive. Extraocular motions intact. No scleral icterus. No injection or drainage. ENT: Nose without bleeding or purulent drainage. Throat without erythema, tonsillar hypertrophy or exudate. Uvula midline. Airway patent. NECK: Trachea midline. CARDIOVASCULAR: Regular rate and rhythm without murmurs, gallops, or rubs. RESPIRATORY: Nonlabored. Clear to auscultation. Breath sounds equal bilaterally. No wheezes, rales, or rhonchi. GASTROINTESTINAL: Abdomen soft, nondistended. Tenderness to palpation diffusely but more so over epigastrium. No hepato-splenomegaly, or palpable masses. No guarding. MUSCULOSKELETAL: Extremities without clubbing, cyanosis, or edema. No joint tenderness, effusion, or edema noted. No calf tenderness. NEUROLOGICAL: Awake and alert. Cranial nerves II through XII grossly intact. Nontremulous. Motor and sensory grossly within normal limits. Able to move all extremities spontaneously. No focal neurologic findings appreciated. Normal speech. PSYCHIATRIC: Calm and cooperative with exam. Judgment and insight questionable. A/P Assessment and Plan Acute alcohol withdrawal Hx of IVDU Ethyl alcohol level 333 admission Recommend patient go to alcohol rehab after discharge. With hypertension in the 160s, tachycardia. History of severe alcohol withdrawal. -CM consulted for EtOH abuse and psych counselor EtOH -continue on scheduled Librium. Schedule thiamine/MVI/Folate daily. -CIWA protocol -fall and seizure precautions -Obtain urine drug screen Nausea, vomiting, diarrhea, suspect secondary to alcohol withdrawal. Epigastric abdominal discomfort History of chronic pancreatitis, lipase 248 s/p EGD 01/05/18 showing gastritis and esophagitis with pathology consistent with Kapadia's esophagus and colonoscopy revealing colitis of the splenic flexure, diverticulosis, polyp status post removal and hemorrhoids -IVF -Trial clear liquid diet -Zofran ODT prn -obtain stool specimen for studies if diarrhea recurs Hypernatremia, hypokalemia -Likely secondary to lab error -Repeat sodium level 140, potassium 3.8 Transaminitis likely secondary to chronic alcoholism. Hx of Hep B, Hep C Hyperbilirubinemia AST trending down Mildly elevated CK 454 -Avoid hepatotoxic agents -Continue to trend LFTs as indicated -repeat CK level Thrombocytopenia, suspect secondary to liver dysfunction No evidence of active bleeding -Continue to monitor. Repeat CBC in a.m. Tobacco abuse. Cessation counseling provided. DVT prophylaxis -SCD/SLIME hose Discharge Planning Not ready for discharge. Discharge pending clinical improvement. Seble Lamb February 12, 2018 09:41
[2018-02-12] MEDS ORDERED: FOLIC ACID 1 MG TAB PO ONE (10:00)
[2018-02-12] MEDS ORDERED: PANTOPRAZOLE SOD 40 MG DELAYED RELEASE TAB PO ONE (10:00)
[2018-02-12] MEDS: LORazepam 1 MG TAB PO PRN ×3 (10:56→20:43)
[2018-02-12] MEDS ORDERED: ZOLPIDEM TARTRATE 5 MG TAB PO ONE (22:30)
[2018-02-13] MEDS: ONDANSETRON ODT 4 MG TAB SL PRN ×2 (00:30→21:28)
[2018-02-13] MEDS: SODIUM CHLOR 0.9% 1000 ML INJ 1,000 ML IV SCH (00:30)
[2018-02-13] MEDS: LORazepam 1 MG TAB PO PRN ×4 (00:30→21:28)
[2018-02-13 06:47] LABS: AUTOMATED NEUTROPHIL # 1.4 TH/MM3 (1.8-7.7); BASOPHIL % 1.1 % (0.0-2.0); EOSINOPHIL # 0.1 TH/MM3 (0-0.4); EOSINOPHIL % 4.6 % (0.0-4.0); HEMATOCRIT 36.4 % (39.0-51.0); HEMOGLOBIN 11.8 GM/DL (13.0-17.0); LYMPH % 40.8 % (9.0-44.0); LYMPHOCYTE # 1.3 TH/MM3 (1.0-4.8); MEAN CELL VOLUME 91.7 FL (80.0-100.0); MEAN CORPUSCULAR HEMOGLOBIN 29.8 PG (27.0-34.0); MEAN CORPUSCULAR HGB CONC 32.6 % (32.0-36.0); MEAN PLATELET VOLUME 8.7 FL (7.0-11.0); MONO % 8.9 % (0.0-8.0); MONOCYTE # 0.3 TH/MM3 (0-0.9); NEUT % 44.6 % (16.0-70.0); PLATELET COUNT 100 TH/MM3 (150-450); RED BLOOD COUNT 3.97 MIL/MM3 (4.50-5.90); RED CELL DISTRIBUTION WIDTH 20.4 % (11.6-17.2); WHITE BLOOD COUNT 3.2 TH/MM3 (4.0-11.0)
[2018-02-13 07:21] LABS: ALBUMIN 3.4 GM/DL (3.4-5.0); ALKALINE PHOSPHATASE 63 U/L (45-117); ALT (GPT) 31 U/L (12-78); AST (GOT) 155 U/L (15-37); BICARBONATE 26.1 MEQ/L (21.0-32.0); BLOOD UREA NITROGEN 4 MG/DL (7-18); CALCIUM 8.2 MG/DL (8.5-10.1); CHLORIDE 107 MEQ/L (98-107); CREATININE 0.65 MG/DL (0.60-1.30); GLOMERULAR FILTRATION RATE 129 ML/MIN (>89); GLUCOSE,RANDOM 117 MG/DL (74-106); SODIUM (NA) 144 MEQ/L (136-145); TOTAL BILIRUBIN ADULT 1.1 MG/DL (0.2-1.0); TOTAL PROTEIN 6.6 GM/DL (6.4-8.2)
[2018-02-13 08:00] VITALS: BP 135/89; PULSE 77; RESP 20; TEMP 98.4; O2SAT 98
--- NOTE | 2018-02-13 08:20 | EKG ---
Date Performed: 02/11/2018 Time Performed: 18:01:18 PTAGE: 52 years EKG: Sinus rhythm NORMAL ECG PREVIOUS TRACING : 02/03/2018 14.20 DOCTOR: Bev Montalvo Interpretating Date/Time 02/13/2018 08:15:04
[2018-02-13] MEDS ORDERED: POTASSIUM CHLORIDE 10 MEQ CONTROLLED RELEASE TAB PO ONE (08:30)
[2018-02-13] MEDS: SODIUM CHLORIDE 0.9% FLUSH 10 ML FLUSH IV FLUSH SCH ×2 (08:38→20:58)
[2018-02-13] MEDS: MULTIVITAMINS/MINERALS THERAPEUTIC TAB PO SCH (08:38)
[2018-02-13] MEDS: PANTOPRAZOLE SOD 40 MG DELAYED RELEASE TAB PO SCH (08:38)
[2018-02-13] MEDS: THIAMINE HCL 100 MG TAB PO SCH (08:38)
[2018-02-13] MEDS: FOLIC ACID 1 MG TAB PO SCH (08:38)
[2018-02-13] MEDS: LORazepam 2 MG TAB PO PRN (08:46)
[2018-02-13] MEDS ORDERED: chlordiazePOXIDE 25 MG CAP PO SCH (09:00)
[2018-02-13] MEDS ORDERED: ACETAMIN 325 MG/BUTALBITAL 50 MG/CAFFEINE 40 MG TAB PO ONE (11:00)
[2018-02-13] MEDS ORDERED: LOPERAMIDE HCL 2 MG CAP PO PRN (11:00)
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
[2018-02-13] MEDS: NICOTINE 21 MG/24 HR PATCH T-DERMAL SCH (11:29)
[2018-02-13] MEDS: NS + KCL 20 MEQ INJ 1,000 ML IV SCH ×2 (11:30→20:59)
[2018-02-13] MEDS: LORazepam 2 MG/ML VIAL IV PUSH PRN (11:47)
[2018-02-13 12:00] VITALS: BP 131/83; PULSE 96; RESP 19; TEMP 98.3; O2SAT 98
[2018-02-13] MEDS: chlordiazePOXIDE 25 MG CAP PO SCH ×2 (12:32→17:37)
--- NOTE | 2018-02-13 13:07 | RADRPT ---
EXAM DATE: 02/13/2018 12:48 PM EDT AGE/SEX: 52 years / Male INDICATIONS: Right upper quadrant pain. CLINICAL DATA: This is the patient's initial encounter. Patient reports that signs and/or symptoms h ave been present for 1 day and indicates a pain score of 1/10. MEDICAL/SURGICAL HISTORY: Gastroesophageal reflux disease. Chronic obstructive pulmonary disease. Hypertension. Dizziness. Migraines. Numbness. Pneumonia. Tuberculosis. Pancreatitis. Rheumatoid art hritis. Herniated discs. Liver disease. Depression. Anxiety. Hepatitis B and C. Cirrhosis. Anemia. Bl ood transfusion. MRSA. ETOH abuse. Tonsillectomy. Liver biopsy. Chest tube. [place] [facility] [place]. MEASUREMENTS (cm x cm x cm): Liver:__ 20.3 cm length Common Bile Duct:__ 4mm FINDINGS: Liver: Coarse echotexture suggesting fatty change or diffuse hepatocellular process. Portal Vein: Hepatopedal flow seen in portal vein. Common Duct: No intralumincal mass or stone visualized. Gallbladder: Demonstrates no wall thickening or pericholecystic fluid. No stones visualized. Pancreas: Diffusely heterogeneous echogenicity. Right Kidney: No mass or hydronephrosis Other: None. CONCLUSION: 1. Increased heterogeneous hepatic echogenicity consistent with hepatic steatosis versus medical divya er disease. 2. Diffusely heterogeneous pancreas echogenicity likely secondary to prior pancreatitis. 3. No sonographic evidence for cholelithiasis or acute cholecystitis. Electronically signed by: Robert West MD 02/13/2018 1:05 PM EDT
[2018-02-13] MEDS ORDERED: MAGNESIUM OXIDE 400 MG TAB PO ONE (15:00)
[2018-02-13 16:00] VITALS: BP 120/83; PULSE 85; RESP 19; TEMP 97.8; O2SAT 96
[2018-02-13 19:50] VITALS: BP 127/84; PULSE 72; RESP 16; TEMP 97.5; O2SAT 98
[2018-02-13 23:18] VITALS: BP 133/87; PULSE 80; RESP 16; TEMP 97.6; O2SAT 99
[2018-02-14] MEDS: LORazepam 1 MG TAB PO PRN ×3 (01:29→12:39)
[2018-02-14 04:11] VITALS: BP 126/83; PULSE 80; RESP 16; TEMP 98.3; O2SAT 98
[2018-02-14] MEDS ORDERED: IBUPROFEN 200 MG TAB PO ONE (05:45)
[2018-02-14] MEDS: ONDANSETRON ODT 4 MG TAB SL PRN (05:58)
[2018-02-14 07:43] VITALS: BP 124/84; PULSE 74; RESP 18; TEMP 97.4; O2SAT 100
[2018-02-14 08:16] LABS: ALBUMIN 3.3 GM/DL (3.4-5.0); AST (GOT) 149 U/L (15-37); BICARBONATE 27.8 MEQ/L (21.0-32.0); BLOOD UREA NITROGEN 6 MG/DL (7-18); CHLORIDE 106 MEQ/L (98-107); CREATININE 0.68 MG/DL (0.60-1.30); GLOMERULAR FILTRATION RATE 122 ML/MIN (>89); GLUCOSE,RANDOM 125 MG/DL (74-106); SODIUM (NA) 141 MEQ/L (136-145)
[2018-02-14 08:19] LABS: ALKALINE PHOSPHATASE 56 U/L (45-117); ALT (GPT) 40 U/L (12-78); TOTAL BILIRUBIN ADULT 0.7 MG/DL (0.2-1.0); TOTAL PROTEIN 6.3 GM/DL (6.4-8.2)
[2018-02-14] MEDS: THIAMINE HCL 100 MG TAB PO SCH (08:36)
[2018-02-14] MEDS: FOLIC ACID 1 MG TAB PO SCH (08:36)
[2018-02-14] MEDS: NICOTINE 21 MG/24 HR PATCH T-DERMAL SCH (08:37)
[2018-02-14] MEDS: chlordiazePOXIDE 25 MG CAP PO SCH ×2 (08:38→12:39)
[2018-02-14] MEDS: MULTIVITAMINS/MINERALS THERAPEUTIC TAB PO SCH (08:38)
[2018-02-14] MEDS: PANTOPRAZOLE SOD 40 MG DELAYED RELEASE TAB PO SCH (08:38)
[2018-02-14] MEDS: NS + KCL 20 MEQ INJ 1,000 ML IV SCH (08:39)
[2018-02-14] MEDS: SODIUM CHLORIDE 0.9% FLUSH 10 ML FLUSH IV FLUSH SCH (08:39)
[2018-02-14] MEDS ORDERED: IBUPROFEN 600 MG TAB PO PRN (08:45)
[2018-02-14] MEDS ORDERED: POTASSIUM CHLORIDE 10 MEQ CONTROLLED RELEASE TAB PO ONE (08:45)
[2018-02-14] MEDS ORDERED: REMOVE OLD NICOTINE PATCH T-DERMAL SCH (09:00)
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
[2018-02-14 10:43] LABS: INTERNATIONAL NORMALIZED RATIO 1.1 RATIO; PROTHROMBIN TIME - PATIENT 10.7 SEC (9.8-11.6)
[2018-02-14 11:09] VITALS: BP 122/81; PULSE 76; RESP 18; TEMP 97.4; O2SAT 100
[2018-02-14] MEDS ORDERED: THERM PO (11:22)
--- NOTE | 2018-02-14 11:39 | HHI.DS ---
Discharge Summary Admission Date February 11, 2018 at 16:47 Discharge Date: February 14, 2018 Admitting Diagnosis Alcohol withdrawl syndrome (1) Alcohol withdrawal ICD Code: F10.239 - Alcohol dependence with withdrawal, unspecified (2) Nausea & vomiting ICD Code: R11.2 - Nausea with vomiting, unspecified Status: Acute (3) Alcohol abuse with alcohol-induced mood disorder ICD Code: F10.14 - Alcohol abuse with alcohol-induced mood disorder Status: Acute (4) Cocaine abuse ICD Code: F14.10 - Cocaine abuse, uncomplicated (5) Transaminitis ICD Code: R74.0 - Transaminitis Status: Acute (6) Hypokalemia ICD Code: E87.6 - Hypokalemia (7) Chronic pancreatitis ICD Code: K86.1 - Chronic pancreatitis Status: Acute (8) Hepatitis C virus ICD Code: B19.20 - Hepatitis C virus Status: Acute Procedures None Brief History - From Admission Patient presented due to agitation at home, apparently punched a wall, was yelling. Patient reports a 2 day history of nausea and nonbloody says he feels like he is in acute alcohol withdrawal. He also reports a 2 day history of constant sharp nonradiating epigastric pain which she says is similar to his chronic pancreatitis denies any chest pain or shortness of breath. CBC/BMP: 02/13/18 0515 02/14/18 0700 Significant Findings Laboratory Tests Test 02/11/18 17:35 02/12/18 09:06 02/12/18 09:42 02/12/18 10:20 White Blood Count 3.2 TH/MM3 (4.0-11.0) Red Blood Count 4.22 MIL/MM3 (4.50-5.90) Hemoglobin 12.6 GM/DL (13.0-17.0) Hematocrit 38.2 % (39.0-51.0) Red Cell Distribution Width 20.9 % (11.6-17.2) Platelet Count 100 TH/MM3 (150-450) Monocytes (%) (Auto) 9.2 % (0.0-8.0) Blood Urea Nitrogen 6 MG/DL (7-18) Aspartate Amino Transf (AST/SGOT) 196 U/L (15-37) Total Bilirubin 1.2 MG/DL (0.2-1.0) Total Creatine Kinase 454 U/L (39-308) 665 U/L (39-308) Urine Occult Blood SMALL (NEG) Urine RBC 22 /hpf (0-3) Urine Bacteria OCC /hpf (NONE) Urine Benzodiazepines Screen POS (NEG) Urine Cocaine Screen POS (NEG) Test 02/13/18 05:15 02/13/18 11:40 02/14/18 07:00 02/14/18 09:40 White Blood Count 3.2 TH/MM3 (4.0-11.0) Red Blood Count 3.97 MIL/MM3 (4.50-5.90) Hemoglobin 11.8 GM/DL (13.0-17.0) Hematocrit 36.4 % (39.0-51.0) Red Cell Distribution Width 20.4 % (11.6-17.2) Platelet Count 100 TH/MM3 (150-450) Monocytes (%) (Auto) 8.9 % (0.0-8.0) Eosinophils (%) (Auto) 4.6 % (0.0-4.0) Neutrophils # (Auto) 1.4 TH/MM3 (1.8-7.7) Blood Urea Nitrogen 4 MG/DL (7-18) 6 MG/DL (7-18) Random Glucose 117 MG/DL (74-106) 125 MG/DL (74-106) Calcium Level 8.2 MG/DL (8.5-10.1) 8.0 MG/DL (8.5-10.1) Aspartate Amino Transf (AST/SGOT) 155 U/L (15-37) 149 U/L (15-37) Total Bilirubin 1.1 MG/DL (0.2-1.0) Potassium Level 2.9 MEQ/L (3.5-5.1) 3.4 MEQ/L (3.5-5.1) Total Creatine Kinase 526 U/L (39-308) Total Protein 6.3 GM/DL (6.4-8.2) Albumin 3.3 GM/DL (3.4-5.0) Imaging Last Impressions Gall Bladder Ultrasound 02/13/18 0000 Signed Impressions: CONCLUSION: 1. Increased heterogeneous hepatic echogenicity consistent with hepatic steato sis versus medical liver disease. 2. Diffusely heterogeneous pancreas echogenicity likely secondary to prior nevarez creatitis. 3. No sonographic evidence for cholelithiasis or acute cholecystitis. PE at Discharge GENERAL: This is a well-nourished, well-developed unkempt male patient , in no apparent distress. He is alert and oriented 3. Lying in hospital bed. Appears comfortable SKIN: No rashes, ecchymoses or lesions. Warm and dry. HEAD: Atraumatic. Normocephalic. No temporal or scalp tenderness. EYES: Pupils equal round and reactive. Extraocular motions intact. No scleral icterus. No injection or drainage. ENT: Nose without bleeding or purulent drainage. Throat without erythema, tonsillar hypertrophy or exudate. Uvula midline. Airway patent. NECK: Trachea midline. CARDIOVASCULAR: Regular rate and rhythm without murmurs, gallops, or rubs. RESPIRATORY: Nonlabored. Clear to auscultation. Breath sounds equal bilaterally. No wheezes, rales, or rhonchi. GASTROINTESTINAL: Abdomen soft, nondistended. Mildly diffuse tenderness to palpation. No guarding. MUSCULOSKELETAL: Extremities without clubbing, cyanosis, or edema. No joint tenderness, effusion, or edema noted. No calf tenderness. NEUROLOGICAL: Awake and alert. Cranial nerves II through XII grossly intact. Motor and sensory grossly within normal limits. Able to move all extremities spontaneously. No focal neurologic findings. Mild bilateral hand tremors appreciated. Normal speech. PSYCHIATRIC: Calm and cooperative with exam. Judgment and insight questionable. Pt update on day of discharge Follow-up on patient with nausea, epigastric pain, alcohol withdrawal. Patient seen and examined. Patient was able tolerate increase in his diet. No nausea or vomiting. He is complaining of a headache. He denies any chest pain or shortness of breath. He continues to complain of mild abdominal pain and occasional diarrhea. He continues to ask for IV Ativan. He denies any auditory or visual hallucinations. Reports he is less shaky this morning. States that he does not want to go to [facility] and wants to be discharged home. Hospital Course Patient admitted with acute alcohol withdrawal under Rose act. Patient's ethyl alcohol level was 333. His urine drug screen was positive for benzodiazepines and cocaine. Patient was seen in consultation by psychiatry who felt that given the risk of danger to self and others, his poor insight about alcoholism and the level of damage she is doing to himself with persistent alcohol use Rose act was kept in place. Per psychiatry, patient was to be presented to [facility] for transfer. He was started on scheduled Librium and monitored on CIWA protocol. Patient complained of epigastric abdominal discomfort, nausea, vomiting and diarrhea with a history of chronic pancreatitis. Lipase level was 248. Patient was treated with oral and IV potassium repletion for potassium level of 2.9. Patient had episodes of diarrhea but stool studies and C. difficile were negative. Patient had elevated AST likely secondary to alcohol abuse and known history of hepatitis B and C. Gallbladder ultrasound revealed increased heterogeneous hepatic echogenicity consistent with hepatic steatosis versus medical liver disease however there was no evidence of acute cholecystitis or cholelithiasis. Patient improved clinically. His nausea and vomiting resolved as did his abdominal pain. He was able to tolerate regular diet. Patient was cleared medically for transfer to [facility]. On the day of discharge, discussed with Dr. Cifuentes of psychiatry who lifted patient's Rose act and recommended patient follow-up with outpatient detox program. Patient was advised to follow-up with PCP and gastroenterology as outpatient. Pt Condition on Discharge: Stable Discharge Disposition: Disc to Psych Care Fac Discharge Time: > 30 minutes Discharge Instructions DIET: Follow Instructions for: Heart Healthy Diet Activities you can perform: Regular-No Restrictions Follow up Referrals: Gastroenterology - 1 Week PCP Follow-up - 1 Week with [facility] New Medications: Chlordiazepoxide HCl (Chlordiazepoxide HCl) 25 Mg Capsule 25 MG PO TID for Alcohol Detox, #12 CAPLET Take one capsule three times a day x 2 days, then take one capsule two times a day x 2 days, then take one capsule daily x 2 days, then discontinue Multiple Vitamins W/ Minerals (Thera M Plus) 1 Tab 1 TAB PO DAILY for Nutritional Supplement, #30 TAB Continued Medications: Pantoprazole (Pantoprazole) 40 Mg Tab 40 MG PO DAILY for ulcer for 30 Days, #30 TAB 0 Refills Seble Lamb February 14, 2018 11:39
[2018-02-14] MEDS ORDERED: CHLO25CA9 PO (11:41)
--- NOTE | 2018-02-14 13:32 | HHI.PYPN ---
Subjective Remarks The patient was seen today for psychiatric reevaluation. Patient is calm, cooperative and pleasant. The patient reports that he feels much better today. He states that he had a couple rough days withdrawing of alcohol, but he feels renewed. Patient expresses that he is willing to continue the process of rehabilitation in outpatient basis. He also says that his plan is to call AA to reengage in a meetings. At this moment he denies symptoms of depression, denies anxiety, denies denzel and psychosis. No alcohol withdrawal symptoms present at the moment. He is logical, coherent and relevant. Oriented 3. I spoke with his mother by phone, she expressed agreement with lifting the Rose act, with receiving the patient back home once discharged. Mental Status Examination Appearance: Appropriate Consciousness: Alert Orientation: x4 Motor Activity: Normal gait Speech: Unremarkable Language: Adequate Fund of Knowledge: Adequate Attention and Concentration: Adequate Memory: Unremarkable Mood: Irritable Affect: Irritable Thought Process & Associations: Intact Thought Content: Appropriate Hallucination Type: None Delusion Type: None Suicidal Ideation: No Suicidal Plan: No Suicidal Intention: No Homicidal Ideation: No Homicidal Plan: No Homicidal Intention: No Insight: Fair Judgment: Impulsive Results Labs Test 02/14/18 07:00 02/14/18 09:40 Blood Urea Nitrogen 6 MG/DL Creatinine 0.68 MG/DL Random Glucose 125 MG/DL Total Protein 6.3 GM/DL Albumin 3.3 GM/DL Calcium Level 8.0 MG/DL Alkaline Phosphatase 56 U/L Aspartate Amino Transf (AST/SGOT) 149 U/L Alanine Aminotransferase (ALT/SGPT) 40 U/L Total Bilirubin 0.7 MG/DL Sodium Level 141 MEQ/L Potassium Level 3.4 MEQ/L Chloride Level 106 MEQ/L Carbon Dioxide Level 27.8 MEQ/L Anion Gap 7 MEQ/L Estimat Glomerular Filtration Rate 122 ML/MIN Prothrombin Time 10.7 SEC Prothromb Time International Ratio 1.1 RATIO Date/Time Source Procedure Growth Status 02/12/18 10:20 Stool Stool Cryptosporidium Exam Pending Resulted 02/12/18 10:20 Stool Stool Stool Pus (MARYANA) - Final NO WBC'S SEEN Resulted 02/12/18 10:20 Stool Stool Giardia Antigen (MARYANA) Pending Resulted 02/12/18 10:20 Stool Stool Stool Occult Blood (MARYANA) - Final HEMOCCULT NEGATIVE Resulted Vitals/IOs Vital Signs Date Time Temp Pulse Resp B/P (MAP) Pulse Ox O2 Delivery O2 Flow Rate FiO2 02/14/18 11:09 97.4 76 18 122/81 (95) 100 02/11/18 17:20 Room Air Intake and Output 02/14/18 02/14/18 02/15/18 08:00 16:00 00:00 Intake Total 1306 ml Balance 1306 ml Assessment & Plan Problem List: (1) Alcohol abuse with alcohol-induced mood disorder ICD Codes: F10.14 - Alcohol abuse with alcohol-induced mood disorder Status: Acute Assessment & Plan: Patient is now clinically stable. No withdrawal symptoms present. Vital signs routine labs reviewed, WNL. Patient denies suicidal and homicidal ideation, he denies visual and auditory hallucinations. No psychiatric admission indicated at this moment. Brief supportive psychotherapy , motivational psychoeducation provided. Patient will be provided with referral for outpatient rehabilitation. Rose act will be lifted. Assessment & Plan Estimated LOS: days Justification for Cont. Inpt. No psychiatric admission indicated at this moment Lucius Cifuentes MD February 14, 2018 13:32
[2018-02-15 13:05] LABS: HEMOGLOBIN A1C 5.2 % (4.3-6.0)
== END 2018-02-14 15:37 | disposition home or self-care (01) ==
LOC: NEPJ 23:03 → NEDA 02-11 16:47 → NEPGCP 02-11 17:58
PROVIDERS: ADMIT Internal Medicine; ATTEND Internal Medicine
DX: F10.24 Alcohol dependence with alcohol-induced mood disorder (principal); F10.239 Alcohol dependence with withdrawal, unspecified; R45.1 Restlessness and agitation; D64.9 Anemia, unspecified; B19.20 Unspecified viral hepatitis C without hepatic coma; B19.10 Unspecified viral hepatitis B without hepatic coma; F41.9 Anxiety disorder, unspecified; F32.9 Major depressive disorder, single episode, unspecified; K74.60 Unspecified cirrhosis of liver; J44.9 Chronic obstructive pulmonary disease, unspecified; K85.90 Acute pancreatitis without necrosis or infection, unspecified; K21.9 Gastro-esophageal reflux disease without esophagitis; M51.26 Other intervertebral disc displacement, lumbar region; I10 Essential (primary) hypertension; G47.00 Insomnia, unspecified; F17.210 Nicotine dependence, cigarettes, uncomplicated; R00.0 Tachycardia, unspecified; Y90.8 Blood alcohol level of 240 mg/100 ml or more
CPT/HCPCS: 76705; 76937; 80053; 80307; 81001; 82272; 82550; 82552; 82948; 83036; 83605; 83690; 83735; 84132; 85025; 85610; 87205; 87328; 87329; 87425; 87493; 87506; 93005; 96361; 96372; 96374; 96376; 99285; G0378; J2060; J2550; J3480; J7030

== ENCOUNTER 2018-03-13 12:01 | Emergency (ER) | payer OTHER ==
[~2018-03-13] VITALS: Ht 198.1 cm; Wt 83.0 kg
[~2018-03-13 12:01] MED LIST changes: +CHLO25CA9 PO; +THERM PO
[2018-03-13 12:14] VITALS: BP 146/91; PULSE 100; RESP 16; TEMP 97.6; O2SAT 97
[2018-03-13] MEDS ORDERED: SODIUM CHLOR 0.9% 1000 ML INJ 1,000 ML IV SCH (12:41)
[2018-03-13] MEDS ORDERED: METOCLOPRAMIDE HCL 10 MG/2 ML VIAL IV PUSH ONE (12:45)
[2018-03-13] MEDS ORDERED: SODIUM CHLORIDE 0.9% FLUSH 10 ML FLUSH IV FLUSH PRN (12:45)
--- NOTE | 2018-03-13 12:50 | PD ---
HPI Chief Complaint: GI Complaint Time Seen by Provider: 12:38 Travel History International Travel<30 days: No Contact w/Intl Traveler<30days: No Traveled to known affect area: No History of Present Illness HPI Patient is a 52-year-old male with known alcohol abuse and Cardona's esophagitis , presents to the ER with multiple complaints. Patient reports that he was recently diagnosed with Cardona's esophagitis, reports that he has been unable to [facility] as he cannot afford this. Patient reports that he has been having increased abdominal pain with nausea, reports that nothing is making pain better or worse. Patient also reports that he is an alcoholic, his last drink was yesterday morning, reports that sometime yesterday he fell and hit his head and thinks that he passed out. Patient currently is not on any anticoagulation. Patient denies any headache or dizziness, denies any chest pain or shortness of breath. Patient with no fever chills, no other complaints. PFSH Past Medical History Hx Anticoagulant Therapy: No Anemia: Yes Arthritis: Yes (RA) Asthma: No Autoimmune Disease: No Blood Disorders: Yes (HEPATITIS B AND C NO TREATMENT) Anxiety: Yes Depression: Yes Heart Rhythm Problems: No Cancer: No Cardiovascular Problems: No High Cholesterol: No Chemotherapy: No Chest Pain: Yes Congestive Heart Failure: No Cirrhosis: Yes COPD: Yes Cerebrovascular Accident: No Diabetes: No Diminished Hearing: No Endocrine: No Gastrointestinal Disorders: Yes (CARDONA'S ESOPHAGUS) GERD: Yes Genitourinary: No Headaches: Yes Hepatitis: Yes (B + C) Hiatal Hernia: No Heparin Induced Thrombocytopen: No Herniated Disk: Yes Hypertension: Yes Immune Disorder: No Implanted Vascular Access Dvce: Yes Insomnia: Yes Kidney Stones: No Musculoskeletal: No Neurologic: No Psychiatric: No Reproductive: No Respiratory: No Integumentary: Yes (HX IV DRUG USE) Immunizations Current: Yes Migraines: Yes Pancreatitis: Yes Pneumonia: Yes (HX) Radiation Therapy: No Renal Failure: No Seizures: No Sickle Cell Disease: No Sleep Apnea: No Thyroid Disease: No Ulcer: Yes PNEUMOCCOCAL Vaccine (Year): 2 Past Surgical History Abdominal Surgery: Yes (LIVER BIOPSY) AICD: No Arteriovenous Shunt: No Body Medical Devices: STEEL PLATE IN RIGHT ANKLE Cardiac Surgery: No Ear Surgery: No Endocrine Surgery: Yes (LIVER BIOPSY) Eye Surgery: No Genitourinary Surgery: No Gynecologic Surgery: No Hysterectomy: No Insulin Pump: No Joint Replacement: No Neurologic Surgery: No Oral Surgery: No Pacemaker: No Thoracic Surgery: Yes (CHEST TUBE- R/O TB 2009) Tonsillectomy: Yes Other Surgery: Yes (right ankle plate) Social History Alcohol Use: Yes (DAILY, VODKA ) Tobacco Use: Yes (09/23 PPD) Substance Use: Yes Allergies-Medications (Allergen,Severity, Reaction): Coded Allergies: Penicillins (Verified Allergy, Severe, RASH, 03/13/18) prednisone (Verified Allergy, Severe, Rash, 03/13/18) Reported Meds & Prescriptions Reported Meds & Active Scripts Active No Active Prescriptions or Reported Medications Review of Systems General / Constitutional: No: Fever Eyes: No: Visual changes HENT: No: Headaches Cardiovascular: No: Chest Pain or Discomfort Respiratory: No: Shortness of Breath Gastrointestinal: Positive: Nausea, Vomiting, Abdominal Pain, No: Constipation Genitourinary: No: Dysuria Musculoskeletal: No: Pain Skin: No Rash Neurologic: No: Weakness Psychiatric: No: Depression Endocrine: No: Polydipsia Hematologic/Lymphatic: No: Easy Bruising Physical Exam Narrative GENERAL: mild distress SKIN: Focused skin assessment warm/dry. HEAD: Atraumatic. Normocephalic. EYES: Pupils equal and round. No scleral icterus. No injection or drainage. ENT: No nasal bleeding or discharge. Mucous membranes pink and moist. NECK: Trachea midline. No JVD. CARDIOVASCULAR: Regular rate and rhythm. No murmur appreciated. RESPIRATORY: No accessory muscle use. Clear to auscultation. Breath sounds equal bilaterally. GASTROINTESTINAL: Abdomen soft, diffusely tender with increased tenderness the upper abdomen, nondistended. Hepatic and splenic margins not palpable. MUSCULOSKELETAL: No obvious deformities. No clubbing. No cyanosis. No edema. NEUROLOGICAL: Awake and alert. No obvious cranial nerve deficits. Motor grossly within normal limits. Normal speech. PSYCHIATRIC: Appropriate mood and affect; insight and judgment normal. Data Data Last Documented VS Vital Signs Date Time Temp Pulse Resp B/P (MAP) Pulse Ox O2 Delivery O2 Flow Rate FiO2 03/13/18 15:11 94 20 150/104 (119) 97 03/13/18 12:14 97.6 Orders Orders Complete Blood Count With Diff (03/13/18 12:41) Comprehensive Metabolic Panel (03/13/18 12:41) Lipase (03/13/18 12:41) Prothrombin Time / Inr (Pt) (03/13/18 12:41) Act Partial Throm Time (Ptt) (03/13/18 12:41) Urinalysis - C+S If Indicated (03/13/18 12:41) Ecg Monitoring (03/13/18 12:41) Oximetry (03/13/18 12:41) Sodium Chlor 0.9% 1000 Ml Inj (Ns 1000 M (03/13/18 12:41) Sodium Chloride 0.9% Flush (Ns Flush) (03/13/18 12:45) Ct Brain W/O Iv Contrast(Rout) (03/13/18 12:41) Electrocardiogram (03/13/18 ) Metoclopramide Inj (Reglan Inj) (03/13/18 12:45) Ct Abd/Pel W/O Iv Contrast (03/13/18 13:11) Ondansetron Odt (Zofran Odt) (03/13/18 13:15) Pantoprazole (Protonix) (03/13/18 13:15) Lorazepam (Ativan) (03/13/18 15:00) Ketorolac Inj (Toradol Inj) (03/13/18 15:15) Labs Laboratory Tests Test 03/13/18 12:05 03/13/18 13:10 03/13/18 14:10 White Blood Count 3.1 TH/MM3 Red Blood Count 4.83 MIL/MM3 Hemoglobin 14.3 GM/DL Hematocrit 43.1 % Mean Corpuscular Volume 89.3 FL Mean Corpuscular Hemoglobin 29.5 PG Mean Corpuscular Hemoglobin Concent 33.0 % Red Cell Distribution Width 19.6 % Platelet Count 135 TH/MM3 Mean Platelet Volume 8.4 FL Neutrophils (%) (Auto) 46.7 % Lymphocytes (%) (Auto) 37.2 % Monocytes (%) (Auto) 6.4 % Eosinophils (%) (Auto) 2.9 % Basophils (%) (Auto) 6.8 % Neutrophils # (Auto) 1.4 TH/MM3 Lymphocytes # (Auto) 1.2 TH/MM3 Monocytes # (Auto) 0.2 TH/MM3 Eosinophils # (Auto) 0.1 TH/MM3 Basophils # (Auto) 0.2 TH/MM3 CBC Comment AUTO DIFF Differential Total Cells Counted 100 Neutrophils % (Manual) 44 % Band Neutrophils % 1 % Lymphocytes % 46 % Monocytes % 8 % Eosinophils % 1 % Neutrophils # (Manual) 1.4 TH/MM3 Differential Comment FINAL DIFF MANUAL Platelet Estimate LOW Platelet Morphology Comment NORMAL Red Cell Morphology Comment NORMAL Blood Urea Nitrogen 6 MG/DL Creatinine 0.63 MG/DL Random Glucose 143 MG/DL Total Protein 8.3 GM/DL Albumin 3.7 GM/DL Calcium Level 8.7 MG/DL Alkaline Phosphatase 121 U/L Aspartate Amino Transf (AST/SGOT) 238 U/L Alanine Aminotransferase (ALT/SGPT) 59 U/L Total Bilirubin 0.8 MG/DL Sodium Level 139 MEQ/L Potassium Level 4.3 MEQ/L Chloride Level 103 MEQ/L Carbon Dioxide Level 25.3 MEQ/L Anion Gap 11 MEQ/L Estimat Glomerular Filtration Rate 134 ML/MIN Lipase 268 U/L Prothrombin Time 11.0 SEC Prothromb Time International Ratio 1.1 RATIO Activated Partial Thromboplast Time 24.9 SEC Urine Color YELLOW Urine Turbidity CLEAR Urine pH 6.0 Urine Specific [place] 1.015 Urine Protein NEG mg/dL Urine Glucose (UA) NEG mg/dL Urine Ketones NEG mg/dL Urine Occult Blood NEG Urine Nitrite NEG Urine Bilirubin NEG Urine Urobilinogen 0.2 MG/DL Urine Leukocyte Esterase NEG Urine Sperm FEW Microscopic Urinalysis Comment CULT NOT INDICATED MDM Medical Decision Making Medical Screen Exam Complete: Yes Emergency Medical Condition: Yes Medical Record Reviewed: Yes Interpretation(s) EKG at 1258: NSR at 92bpm, qt/qtc: 352/401, no acute st or t wave changes Vital Signs Date Time Temp Pulse Resp B/P (MAP) Pulse Ox O2 Delivery O2 Flow Rate FiO2 03/13/18 12:14 97.6 100 16 146/91 (109 97 Differential Diagnosis Pancreatitis, esophagitis, alcohol withdrawal, alcohol abuse, electrolyte abnormality Narrative Course During the course of the patients emergency department visit, the patients history, examination, and differential diagnosis were reviewed with the patient. The patient was placed on a commissioner of internal revenue with oximetry and frequent blood pressure monitoring. The patient had an IV access obtained and blood work sent for analysis. The patient was initially provided zofran as well as protonix. The patients laboratory studies were reviewed and remarkable for CBC & BMP Diagram 03/13/18 12:05 Total Protein 8.3 H, Albumin 3.7, Calcium Level 8.7, Alkaline Phosphatase 121 H , Aspartate Amino Transf (AST/SGOT) 238 H, Alanine Aminotransferase (ALT/SGPT) 59, Total Bilirubin 0.8 Radiology studies were reviewed and remarkable for Last Impressions Abdomen/Pelvis CT 03/13/18 1311 Signed Impressions: CONCLUSION: 1. Negative for acute process. I do not see inflammatory changes or free air 2. Bowel gas pattern is unremarkable solid stool scattered throughout the colo n. Head CT 03/13/18 1241 Signed Impressions: CONCLUSION: 1. Negative for acute process. I went to go re-evaluate patient and review ct results, patient had eloped from the ER as he was not in the room. He did not have an IV in place Diagnosis Primary Impression: Abdominal pain Qualified Codes: R10.13 - Epigastric pain Additional Impressions: Nausea & vomiting Qualified Codes: R11.2 - Nausea with vomiting, unspecified Gastritis Qualified Codes: K29.20 - Alcoholic gastritis without bleeding Transaminitis Alcoholism Thrombocytopenia Patient Instructions: General Instructions Scripts No Active Prescriptions or Reported Meds Sandra Gurrola DO Mar 13, 2018 12:50
[2018-03-13 12:59] VITALS: O2SAT 96
[2018-03-13 13:07] LABS: AUTOMATED NEUTROPHIL # 1.4 TH/MM3 (1.8-7.7); BASOPHIL # 0.2 TH/MM3 (0-0.2); BASOPHIL % 6.8 % (0.0-2.0); EOSINOPHIL # 0.1 TH/MM3 (0-0.4); EOSINOPHIL % 2.9 % (0.0-4.0); HEMATOCRIT 43.1 % (39.0-51.0); HEMOGLOBIN 14.3 GM/DL (13.0-17.0); LYMPH % 37.2 % (9.0-44.0); LYMPHOCYTE # 1.2 TH/MM3 (1.0-4.8); MEAN CELL VOLUME 89.3 FL (80.0-100.0); MEAN CORPUSCULAR HEMOGLOBIN 29.5 PG (27.0-34.0); MEAN PLATELET VOLUME 8.4 FL (7.0-11.0); MONO % 6.4 % (0.0-8.0); MONOCYTE # 0.2 TH/MM3 (0-0.9); NEUT % 46.7 % (16.0-70.0); PLATELET COUNT 135 TH/MM3 (150-450); RED BLOOD COUNT 4.83 MIL/MM3 (4.50-5.90); RED CELL DISTRIBUTION WIDTH 19.6 % (11.6-17.2); WHITE BLOOD COUNT 3.1 TH/MM3 (4.0-11.0)
[2018-03-13] MEDS ORDERED: PANTOPRAZOLE SOD 40 MG DELAYED RELEASE TAB PO ONE (13:15)
[2018-03-13] MEDS ORDERED: ONDANSETRON ODT 4 MG TAB PO ONE (13:15)
[2018-03-13 13:17] LABS: CHLORIDE 103 MEQ/L (98-107); SODIUM (NA) 139 MEQ/L (136-145)
[2018-03-13 13:20] LABS: CALCIUM 8.7 MG/DL (8.5-10.1)
[2018-03-13 13:21] LABS: ALBUMIN 3.7 GM/DL (3.4-5.0); BICARBONATE 25.3 MEQ/L (21.0-32.0); BLOOD UREA NITROGEN 6 MG/DL (7-18); GLUCOSE,RANDOM 143 MG/DL (74-106)
[2018-03-13 13:23] LABS: ALT (GPT) 59 U/L (12-78); AST (GOT) 238 U/L (15-37)
[2018-03-13 13:24] LABS: CREATININE 0.63 MG/DL (0.60-1.30); GLOMERULAR FILTRATION RATE 134 ML/MIN (>89)
[2018-03-13 13:25] VITALS: BP 147/110; PULSE 93; RESP 20; O2SAT 96
[2018-03-13 13:25] LABS: TOTAL BILIRUBIN ADULT 0.8 MG/DL (0.2-1.0); TOTAL PROTEIN 8.3 GM/DL (6.4-8.2)
[2018-03-13 13:26] LABS: ALKALINE PHOSPHATASE 121 U/L (45-117)
[2018-03-13 13:42] LABS: BANDS 1 % (0-6); LYMPHOCYTES 46 % (9-44); MONOCYTES 8 % (0-8); NEUTROPHIL # MANUAL DIFF 1.4 TH/MM3 (1.8-7.7); POLYS (SEG NEUTROPHILS) 44 % (16-70)
[2018-03-13 13:57] LABS: INTERNATIONAL NORMALIZED RATIO 1.1 RATIO
[2018-03-13 14:18] LABS: BILIRUBIN, URINE NEG (NEG); BLOOD, URINE NEG (NEG); GLUCOSE,URINE NEG (NEG); KETONE, URINE NEG (NEG); NITRITE,URINE NEG (NEG); URINE COLOR YELLOW (YELLW/STRAW); URINE LEUKOCYTE ESTERASE NEG (NEG)
[2018-03-13 14:46] LABS: SPERM, URINE FEW
[2018-03-13] MEDS ORDERED: LORazepam 0.5 MG TAB PO ONE (15:00)
--- NOTE | 2018-03-13 15:07 | RADRPT ---
EXAM DATE: 03/13/2018 2:27 PM EDT AGE/SEX: 52 years / Male INDICATIONS: Cephalgia. CLINICAL DATA: This is the patient's initial encounter. Patient reports that signs and symptoms have been present for 3 days and indicates a pain score of 9/10. MEDICAL/SURGICAL HISTORY: Gastroesophageal reflux disease. Chronic obstructive pulmonary disease. Pancreatitis. Ulcer. Hypertension. Hep B. Hep C. Tuberculosis. None. RADIATION DOSE: 55.21 CTDI (mGy) COMPARISON: [facility] [place], [place] BRAIN W/O CONTRAST, 02/03/2018. . TECHNIQUE: CT of the head without contrast. Using automated exposure control and adjustment of the mA and/or kV according to patient size, radiation dose was kept as low as reasonably achievable to ob tain optimal diagnostic quality images. FINDINGS: Cerebrum: The ventricles are normal for age. No evidence of midline shift, mass lesion, hemorrhage or acute infarction. No extraaxial fluid collections are seen. Posterior Fossa: The cerebellum and brainstem are intact. The 4th ventricle is midline. The cerebe llopontine angle is unremarkable. Extracranial: The visualized portion of the orbits is intact. Skull: The calvaria is intact. No evidence of skull fracture. CONCLUSION: 1. Negative for acute process. Electronically signed by: Mayco Brown MD 03/13/2018 3:06 PM EDT
[2018-03-13 15:11] VITALS: BP 150/104; PULSE 94; RESP 20; O2SAT 97
[2018-03-13] MEDS ORDERED: KETOROLAC TROMETHAMINE 60 MG/2 ML (IM) VIAL IM ONE (15:15)
--- NOTE | 2018-03-13 15:51 | RADRPT ---
EXAM DATE: 03/13/2018 2:27 PM EDT AGE/SEX: 52 years / Male INDICATIONS: Nausea, vomiting and mid abdominal pain. CLINICAL DATA: This is the patient's initial encounter. Patient reports that signs and symptoms have been present for 3 days and indicates a pain score of 10/10. MEDICAL/SURGICAL HISTORY: Gastroesophageal reflux disease. Chronic obstructive pulmonary disea se. Ulcers. Pancreatitis. Hypertension. Hep B. Hep C. Tuberculosis. None. RADIATION DOSE: 11.13 CTDI (mGy) [place] [facility] [place] CONTRAST[place]/14/2017. . TECHNIQUE: Multiple contiguous axial images were obtained through the abdomen. Images were obtained using multiple row detector helical technique. Using dose reduction techniques, radiation dose was ke pt as low as reasonably achievable to obtain optimal diagnostic quality images. FINDINGS: The lower lungs are clear. Mild visible changes are evident. The liver is free of focal defects. Gallbladder not visualized Spleen and pancreas appear normal. There is no pancreatitis Adrenals and kidneys are unremarkable. There is no renal stone There are no inflammatory changes in the abdomen. There is not adenopathy or ascites. The pelvis minimal vascular calcifications are noted. There are very minimal diverticuli in the sigmo id colon without inflammatory changes. There is no bowel wall thickening. Degenerative changes in the lower lumbar spine. CONCLUSION: 1. Negative for acute process. I do not see inflammatory changes or free air 2. Bowel gas pattern is unremarkable solid stool scattered throughout the colon. Electronically signed by: Mayco Brown MD 03/13/2018 3:49 PM EDT
--- NOTE | 2018-03-14 15:16 | EKG ---
Date Performed: 03/13/2018 Time Performed: 12:58:14 PTAGE: 52 years EKG: Sinus rhythm NORMAL ECG Since PREVIOUS TRACING , no significant change noted PREVIOUS TRACIN02/11/2018 18.01 DOCTOR: Rick Mims Interpretating Date/Time 03/14/2018 15:14:13
== END 2018-03-13 16:03 | disposition left against medical advice (07) ==
LOC: PHED 12:01
DX: R10.13 Epigastric pain (principal); R11.2 Nausea with vomiting, unspecified; K29.20 Alcoholic gastritis without bleeding; R74.0 Nonspecific elevation of levels of transaminase and lactic acid dehydrogenase [LDH]; F10.20 Alcohol dependence, uncomplicated; D69.6 Thrombocytopenia, unspecified; S09.90XA Unspecified injury of head, initial encounter; W19.XXXA Unspecified fall, initial encounter; I10 Essential (primary) hypertension; J44.9 Chronic obstructive pulmonary disease, unspecified; B19.10 Unspecified viral hepatitis B without hepatic coma; B19.20 Unspecified viral hepatitis C without hepatic coma; K74.60 Unspecified cirrhosis of liver; K22.70 Barrett's esophagus without dysplasia; M06.9 Rheumatoid arthritis, unspecified; F32.9 Major depressive disorder, single episode, unspecified; F41.9 Anxiety disorder, unspecified; F17.210 Nicotine dependence, cigarettes, uncomplicated; Z88.0 Allergy status to penicillin; Z88.8 Allergy status to other drugs, medicaments and biological substances
CPT/HCPCS: 70450; 74176; 80053; 81001; 83690; 85007; 85027; 85610; 85730; 93005; 96372; 99285; J1885

== ENCOUNTER 2018-04-09 09:48 | Inpatient (IN) ==
[2018-04-09] MEDS ORDERED: Pantoprazole Inj 40 MG Vial IV.PUSH ONE (11:25)
[2018-04-09] MEDS ORDERED: Morphine Inj 4 MG/ML Vial IV.PUSH ONE (11:25)
[2018-04-09] MEDS ORDERED: Sod Chloride 0.9% Inj 1,000 ML IV.CONT SCH (11:30)
[2018-04-09] MEDS ORDERED: Sod Chloride 0.9% Inj 1,000 ML IV.SIG ONE (11:38)
--- NOTE | 2018-04-09 11:42 | ED ---
HPI General Chief complaint: GI Bleed Stated complaint: Vomitting up blood Time Seen by Provider: 04/09/18 11:11 Source: patient Mode of arrival: ambulatory Limitations: no limitations History of Present Illness HPI Narrative: Patient is a a 52-year-old male, past medical history significant for chronic hepatitis B and hepatitis C, with cirrhosis but no known esophageal varices, also with history of peptic ulcer disease and chronic pancreatitis who presents with a complaint of abdominal pain nausea vomiting and watery diarrhea for the last 2 days. He states that this has not happened before. He reports that his emesis has not been coffee ground but has had some streaks of blood in it. He has not had any blood in his stool, nor dark stools. He reports abdominal distention but no fevers. He does not regularly accumulate fluid within the abdomen and does not have to have regular paracentesis but he has had one in the past. He denies sick contacts, camping, freshwater exposure. Denies travel. He reports regular alcohol abuse which he has been trying to cut down on. He states his last drink was approximately 4 days ago and he has been feeling shaky since. He is previously tried to quit drinking cold turkey at which point he had a seizure. He was then told that he had to cut down slowly which he has been trying to do since. He states that today he has also started to have substernal chest pain without radiation in addition to dyspnea that has been intermittent but has been improving overall. complaint: gross hematemesis Onset (ago): day(s) Pain Consistency: constant Severity: moderate Relieving factors: none Exacerbating factors: none Context: liver disease and alcohol abuse Associated symptoms: abdominal pain, nausea, vomiting and shortness of breath Treatments Prior to Arrival: none Related Data Home Medications Medication Instructions Recorded Confirmed pantoprazole [Protonix] 40 mg PO BID 04/06/18 04/09/18 Allergies Allergy/AdvReac Type Severity Reaction Status Date / Time Penicillins Allergy Severe RASH Verified 04/09/18 10:33 prednisone Allergy Severe Rash Verified 04/09/18 10:33 Review of Systems Except as stated in HPI: all other systems reviewed are negative Constitutional Denies fever(s) and Reports poor appetite Eyes Denies blurry vision ENT Denies bleeding gums and Denies epistaxis Cardiovascular Reports chest pain Respiratory Denies cough and Reports dyspnea Gastrointestinal Reports abdominal pain, Denies melena, Reports bloating, Denies hematochezia, Denies change in stool character, Denies coffee ground emesis, Reports diarrhea , Reports loose stools, Reports vomiting and Reports hematemesis Genitourinary Denies hematuria Musculoskeletal Denies back pain Integumentary/Breasts Denies rash Neurologic Denies headache(s) Psychiatric Denies anxiety Endocrine Reports fatigue Hematologic/Lymphatic Denies easy bruising [facility] Medical History Medical History COPD (chronic obstructive pulmonary disease) (Acute) Hepatitis B (Acute) Hepatitis C (Acute) Hx of tuberculosis (Acute) Rheumatoid arthritis (Acute) Surgical History Surgical History H/O chest tube placement (Acute) History of arthroplasty of right ankle (Acute) Social History Social History Substance History: No History of Abuse Second Hand Smoke Exposure: Yes Smoking Status: Current every day smoker Tobacco Type: Cigarettes How Often Do You Have a Drink Containing Alcohol: 2 to 3 times a week Recent Travel in [facility] within the Last 8 Weeks: No Recent Out of Country Travel within the Last 8 Weeks: No Immunization History Tetanus Immunization: >5 Years Hx Influenza Vaccine This Season: Yes Exam Narrative Exam Narrative: GENERAL: ill-appearing male in no acute distress, grabbing abdomen SKIN: Focused skin assessment warm/dry. HEAD: Atraumatic. Normocephalic. EYES: Pupils equal and round. No scleral icterus. No injection or drainage. ENT: No nasal bleeding or discharge. Mucous membranes pink and dry. NECK: Trachea midline. No JVD. CARDIOVASCULAR: Regular rate and rhythm. No murmur appreciated. RESPIRATORY: No accessory muscle use. Clear to auscultation. Breath sounds equal bilaterally. GASTROINTESTINAL: Abdomen soft, distended with diffuse tenderness. No fluid wave. Guaiac negative, no gross blood nor melena. MUSCULOSKELETAL: No obvious deformities. No clubbing. No cyanosis. No edema. NEUROLOGICAL: Awake and alert. No obvious cranial nerve deficits. Motor grossly within normal limits. Normal speech. Tremor present. PSYCHIATRIC: Appropriate mood and affect; insight and judgment normal. Course Hospital Course: Patient was placed on the cafeteria monitor and IV was established. Bedside ultrasound did not reveal significant fluid collection within the abdomen. He has been given morphine, Zofran, 1 mg Ativan, and labs have been sent. Reevaluation(s) Reevaluation #1: Patient states that his pain has improved slightly but is still significant. His blood pressures in the 180s, but he is not tachycardic. Tremor persists but is less prominent. He has been given 0.5 mg Dilaudid IV, in addition to a second 1 mg dose of Ativan IV. Time: 12:54 Reevaluation #2: Patient's tremor has dissipated. He complains of continued pain. He has been made aware that he does have pancreatitis with plan for admission. Time: 13:51 Initial Documented Vital Signs Temperature 97.7 F 04/09/18 10:06 Pulse Rate 94 H 04/09/18 10:06 Respiratory Rate 16 04/09/18 10:06 Blood Pressure 143/94 H 04/09/18 10:06 Pulse Oximetry 100 04/09/18 10:06 Last Documented Vital Signs Temperature 98.2 F 04/09/18 12:50 Pulse Rate 86 04/09/18 12:50 Respiratory Rate 20 04/09/18 12:50 Blood Pressure 185/115 H 04/09/18 12:50 Pulse Oximetry 98 04/09/18 12:50 Medical Decision Making MDM Narrative Medical decision making narrative: Patient is a 52-year-old male with past medical history significant for alcohol abuse and previous pancreatitis, who presents with chief complaint of abdominal pain, nausea, vomiting and diarrhea for the last several days. He is hemodynamically stable on arrival but does have a tremor which dissipated after he was given 2 1 mg doses of Ativan IV. His pain improved after several doses of morphine and Dilaudid. Workup consistent with acute pancreatitis and alcohol withdrawal. CT has been ordered and is pending. I spoke to Dr. delgadillo the hospitalist on-call who agreed with admission. Differential Diagnosis Differential Diagnosis: Differential diagnosis includes but is not limited to alcohol withdrawal, pancreatitis, SBP, acute GI bleed, and colitis. Lab Data Lab results reviewed: Yes I reviewed the patient's lab results. Lab results narrative: [employer] with dehydration and acute pancreatitis. He is not anemic at this time. Result diagrams: 04/09/18 11:45 04/09/18 11:45 Lab Results 04/09/18 04/09/18 04/09/18 Range/Units 11:45 11:45 11:45 WBC 5.8 (4.0-11.0) th/mm3 RBC 4.84 (4.50-5.90) mil/mm3 Hgb 13.9 (13.0-17.0) gm/dL Hct 42.7 (39.0-51.0) % MCV 88.4 (80.0-100.0) fL MCH 28.7 (27.0-34.0) pg MCHC 32.5 (32.0-36.0) % RDW 19.9 H (11.6-17.2) % Plt Count 190 (150-450) th/mm3 MPV 8.2 (7.0-11.0) fL Neut % (Auto) 68.1 (16.0-70.0) % Lymph % (Auto) 22.1 (9.0-44.0) % [place] % (Auto) 8.3 H (0.0-8.0) % Eos % (Auto) 1.0 (0.0-4.0) % Baso % (Auto) 0.5 (0.0-2.0) % Neut # (Auto) 4.0 (1.8-7.7) th/mm3 Lymph # (Auto) 1.3 (1.0-4.8) th/mm3 [place] # (Auto) 0.5 (0.0-0.9) th/mm3 Eos # (Auto) 0.1 (0.0-0.4) th/mm3 Baso # (Auto) 0.0 (0.0-0.2) th/mm3 WBC Differential . Differential Comment Auto diff final PT 11.2 (9.8-11.6) sec INR 1.1 Ratio APTT 24.5 (24.3-30.1) sec Sodium 138 (136-145) meq/L Potassium 3.9 (3.5-5.1) meq/L Chloride 97 L (98-107) meq/L Carbon Dioxide 24.5 (21.0-32.0) meq/L Anion Gap 17 H (5-15) meq/L BUN 6 L (7-18) mg/dL Creatinine 0.63 (0.60-1.30) mg/dL Estimated GFR Greater than 89 (>89) mL/min Random Glucose 152 H (74-106) mg/dL Calcium 9.2 (8.5-10.1) mg/dL Total Bilirubin 1.1 H (0.2-1.0) mg/dL AST 228 H (15-37) U/L ALT 61 (12-78) U/L Alkaline Phosphatase 118 H (45-117) U/L Troponin I Less than 0.02 L (0.02-0.05) ng/mL Total Protein 7.6 (6.4-8.2) g/dL Albumin 4.0 (3.4-5.0) g/dL Lipase 4616 H (73-393) U/L Blood Type Antibody Screen 04/09/18 04/09/18 Range/Units 11:45 12:50 WBC (4.0-11.0) th/mm3 RBC (4.50-5.90) mil/mm3 Hgb (13.0-17.0) gm/dL Hct (39.0-51.0) % MCV (80.0-100.0) fL MCH (27.0-34.0) pg MCHC (32.0-36.0) % RDW (11.6-17.2) % Plt Count (150-450) th/mm3 MPV (7.0-11.0) fL Neut % (Auto) (16.0-70.0) % Lymph % (Auto) (9.0-44.0) % [place] % (Auto) (0.0-8.0) % Eos % (Auto) (0.0-4.0) % Baso % (Auto) (0.0-2.0) % Neut # (Auto) (1.8-7.7) th/mm3 Lymph # (Auto) (1.0-4.8) th/mm3 [place] # (Auto) (0.0-0.9) th/mm3 Eos # (Auto) (0.0-0.4) th/mm3 Baso # (Auto) (0.0-0.2) th/mm3 WBC Differential Differential Comment PT (9.8-11.6) sec INR Ratio APTT (24.3-30.1) sec Sodium (136-145) meq/L Potassium (3.5-5.1) meq/L Chloride (98-107) meq/L Carbon Dioxide (21.0-32.0) meq/L Anion Gap (5-15) meq/L BUN (7-18) mg/dL Creatinine (0.60-1.30) mg/dL Estimated GFR (>89) mL/min Random Glucose (74-106) mg/dL Calcium (8.5-10.1) mg/dL Total Bilirubin (0.2-1.0) mg/dL AST (15-37) U/L ALT (12-78) U/L Alkaline Phosphatase (45-117) U/L Troponin I Cancelled (0.02-0.05) ng/mL Total Protein (6.4-8.2) g/dL Albumin (3.4-5.0) g/dL Lipase (73-393) U/L Blood Type O Positive Antibody Screen Negative Imaging Data Attestation: I personally reviewed and interpreted this imaging study as follows : My impression: No acute cardiopulmonary process. Radiologist's impression: Chest X-Ray 04/09/18 11:28 CONCLUSION: 1. Chronic scarring and benign calcifications. 2. No acute cardiopulmonary disease. ECG Data EKG Prior to Arrival: No Attestation: I personally reviewed and interpreted this ECG as follows: (Normal sinus rhythm at a rate of 86 bpm. There are no acute ST changes. T waves are prominent but not peaked.) Discharge Plan Discharge Disposition Patient Disposition: 30 Still Patient Discharge Condition Condition: Stable Discharge Details Diagnosis: Acute pancreatitis, Gastrointestinal hemorrhage with hematemesis, Alcohol withdrawal Physicians Team ED Provider: Shana Rose Primary Care Provider: Primary Care Kareen Wilson Rxs /Orders / Referrals /Forms Prescriptions: No Action pantoprazole [Protonix] 40 mg Tablet,Delayed Release (Dr/Ec) 40 mg PO BID RF: 0 Status ED Status: With Doctor
--- NOTE | 2018-04-09 12:28 | XR ---
EXAM DATE: 04/09/2018 12:25 PM EDT AGE/SEX: 52 years / Male INDICATIONS: . Chest pain. CLINICAL DATA: This is the patient's initial encounter. Patient reports that signs and symptoms have been present for 2 days and indicates a pain score of 6/10. MEDICAL/SURGICAL HISTORY: Hypertension. None. COMPARISON: [facility] [place] 1[place] AP, [place]26/2018. . FINDINGS: PA and lateral views of the chest demonstrate the lungs to be symmetrically aerated without evidence of mass, infiltrate or effusion. There are multiple calcified granulomas again noted in both upper lo bes. There are areas of scarring as well. The hilar regions remain retracted cephalad. The cardiomedi astinal contours are unremarkable. Osseous structures are intact. CONCLUSION: 1. Chronic scarring and benign calcifications. 2. No acute cardiopulmonary disease. Electronically signed by: Loy Sinha MD 04/09/2018 12:27 PM EDT
[2018-04-09 12:30] LABS: Baso % (Auto) 0.5 % (0.0-2.0); Eos # (Auto) 0.1 th/mm3 (0.0-0.4); Hematocrit 42.7 % (39.0-51.0); Hemoglobin 13.9 gm/dL (13.0-17.0); Lymph # (Auto) 1.3 th/mm3 (1.0-4.8); Lymph % (Auto) 22.1 % (9.0-44.0); Mean Corpuscular HGB Conc 32.5 % (32.0-36.0); Mean Corpuscular Hemoglobin 28.7 pg (27.0-34.0); Mean Corpuscular Volume 88.4 fL (80.0-100.0); Mean Platelet Volume 8.2 fL (7.0-11.0); Mono # (Auto) 0.5 th/mm3 (0.0-0.9); Mono % (Auto) 8.3 % (0.0-8.0); Neut % (Auto) 68.1 % (16.0-70.0); Platelet Count 190 th/mm3 (150-450); Red Blood Count 4.84 mil/mm3 (4.50-5.90); Red Cell Distribution Width 19.9 % (11.6-17.2); White Blood Count 5.8 th/mm3 (4.0-11.0)
[2018-04-09 12:43] LABS: Activated Partial Thrombo Time 24.5 sec (24.3-30.1); INR 1.1 Ratio; Prothrombin Time 11.2 sec (9.8-11.6)
[2018-04-09] MEDS ORDERED: HYDROmorphone PF Inj 1 MG/ML Ampul IV.PUSH ONE ×2 (12:52→13:50)
[2018-04-09 12:58] LABS: Alanine Aminotransferase 61 U/L (12-78); Alkaline Phosphatase 118 U/L (45-117); Lipase 4616 U/L (73-393); Total Protein 7.6 g/dL (6.4-8.2)
[2018-04-09 13:01] LABS: Anion Gap 17 meq/L (5-15); Aspartate Aminotransferase 228 U/L (15-37); Blood Urea Nitrogen 6 mg/dL (7-18); Calcium 9.2 mg/dL (8.5-10.1); Carbon Dioxide 24.5 meq/L (21.0-32.0); Chloride 97 meq/L (98-107); Glomerular Filtration Rate Greater Than 89 mL/min (>89); Glucose,Random 152 mg/dL (74-106); Potassium 3.9 meq/L (3.5-5.1); Sodium 138 meq/L (136-145)
[2018-04-09] MEDS ORDERED: HYDROmorphone PF Inj 2 MG/ML Vial ONE ×2 (13:08→14:26)
[2018-04-09] MEDS ORDERED: Diatrizoate Meglum/Diatrizoate Sod Liq 9 ML UDC PO ONE (13:15)
[2018-04-09] MEDS: Sod Chloride 0.9% Inj 1,000 ML IV.CONT SCH (15:15)
[2018-04-09] MEDS ORDERED: Morphine Inj 4 MG/ML Vial IV.PUSH PRN (15:32)
--- NOTE | 2018-04-09 15:32 | P.HPIM ---
History of Present Illness Primary Care Physician: No Primary Care Physician Chief Complaint: Vomiting, abdominal pain, diarrhea History of Present Illness: The patient is a 52-year-old male with a past medical history of hepatitis B, hepatitis C, cirrhosis and pancreatitis who is presenting to the hospital with abdominal pain, nausea and vomiting and diarrhea. The patient says that a couple of days ago he started to feel poorly. He said that he became very nauseous and started vomiting. He says that he had major stomach pain. He says that he developed diarrhea. His vomit was initially normal but he says later on last night he was vomiting blood. He says that he went to bed and try to sleep it off. This morning he woke up and he said his vomiting got even worse. He said that his mom drove him here to the hospital. He says that he is currently still drinking half a gallon of vodka daily. He says when he tried to stop in the past he developed seizures. He says he was here last week for broken toe bones and pulled neck muscles he sustained after tearing down a shed. He still complains of some pain in his neck. Inpatient Certification: I certify that the inpatient services were ordered in accordance with Medicare regulations governing the order. This includes certification that hospital inpatient services are reasonable and necessary and in the case of services not specified as inpatient-only under 42 CFR 419.22(n), that they are appropriately provided as inpatient services in accordance to with the 2-midnight benchmark under 43 CFR 412.3(e) Estimated Total Length of Stay (Days): 3 Plans for Post Hospital Care: Not yet determined Review of Systems All other systems reviewed negative except as stated in HPI [facility] - History History Provided By: Patient - Medical History Medical History: Medical History (Last Updated 04/09/18 @ 15:30 by Loy Blue DO) Chronic pancreatitis Cirrhosis Herniated disc Hx of tuberculosis Sciatica COPD (chronic obstructive pulmonary disease) Hepatitis B Hepatitis C Rheumatoid arthritis - Surgical History Surgical History: Surgical History (Last Reviewed 04/09/18 @ 11:48 by Shana Rose MD) H/O chest tube placement History of arthroplasty of right ankle - Family History Family History: Family History (Last Updated 04/09/18 @ 15:31 by Loy Blue DO) Other Dementia - Tobacco History Second Hand Smoke Exposure: Yes Tobacco Use In Past 30 Days: Yes Smoking Status: Current every day smoker Tobacco Type: Cigarettes - Alcohol History How Often Do You Have a Drink Containing Alcohol: 4 or more times a week - Substance Use History Substance History: No History of Abuse, Active Abuse - Travel History Recent Travel in the [place] Within the Last 8 Weeks: No Recent Travel Out of the Country Within the Last 8 Weeks: No - Immunization History Tetanus Immunization: >5 Years Hx Influenza Vaccine This Season: Yes Medications and Allergies Active Medications: Active Medications Acetaminophen (Tylenol) 650 mg PO Q4H PRN PRN Reason: Temp > 100.4 Flumazenil (Romazecon Inj) 0.2 mg IV.PUSH Q1M PRN PRN Reason: OVERSEDATION Folic Acid (Folic Acid) 1 mg PO DAILY SOUMYA Sodium Chloride (Ns Inj) 1,000 mls @ 150 mls/hr IV.CONT .Q6H40M SOUMYA Last Admin: 04/09/18 15:15 Dose: 150 mls/hr Thiamine HCl 100 mg/ Sodium (Chloride) 101 mls @ 100 mls/hr IV.SIG DAILY SOUMYA Lorazepam (Ativan) 1 mg PO Q4H PRN PRN Reason: for CIWA 8-10 Lorazepam (Ativan) 2 mg PO Q2H PRN PRN Reason: for CIWA 11-14 Lorazepam (Ativan Inj) 2 mg IV.PUSH Q1H PRN PRN Reason: for CIWA 15-20 Lorazepam (Ativan Inj) 2 mg IV.PUSH Q15M PRN PRN Reason: for CIWA > 20 Multivitamins (Theragran) 1 tab PO DAILY SOUMYA Pantoprazole Sodium (Protonix Inj) 40 mg IV.PUSH Q12H SOUMYA Senna/Docusate Sodium (Blank-Colace) 1 tab PO BID [facility] Sodium Chloride (Ns Flush) 2 ml IV.FLUSH PRN PRN PRN Reason: FLUSH AFTER USING IV ACCESS Allergies Allergy/AdvReac Type Severity Reaction Status Date / Time Penicillins Allergy Severe RASH Verified 04/09/18 10:33 prednisone Allergy Severe Rash Verified 04/09/18 10:33 Home Medications Medication Instructions Recorded Confirmed Type pantoprazole [Protonix] 40 mg PO BID 04/06/18 04/09/18 History Exam Vital signs: Vital Signs 04/09/18 10:06 04/09/18 11:25 04/09/18 12:35 Temperature 97.7 F Pulse Rate 94 H 81 Respiratory Rate 16 18 Blood Pressure 143/94 H Pulse Oximetry 100 98 04/09/18 12:50 04/09/18 14:24 04/09/18 14:32 Temperature 98.2 F 98.2 F Pulse Rate 86 94 H Respiratory Rate 20 16 Blood Pressure 185/115 H 188/122 H Pulse Oximetry 98 98 04/09/18 15:00 Temperature Pulse Rate Respiratory Rate 17 Blood Pressure Pulse Oximetry Intake & Output 04/08/18 04/09/18 04/09/18 18:59 06:59 18:59 Weight 90.718 kg Narrative: GENERAL: No distress. SKIN: Focused skin assessment warm/dry. HEAD: Atraumatic. Normocephalic. EYES: Pupils equal and round. No scleral icterus. No injection or drainage. ENT: No nasal bleeding or discharge. Mucous membranes pink and dry. NECK: Trachea midline. No JVD. CARDIOVASCULAR: Regular rate and rhythm. No murmur appreciated. RESPIRATORY: No accessory muscle use. Clear to auscultation. Breath sounds equal bilaterally. GASTROINTESTINAL: Abdomen soft, distended with mild epigastric tenderness. MUSCULOSKELETAL: No obvious deformities. No clubbing. No cyanosis. No edema. NEUROLOGICAL: Awake and alert. No obvious cranial nerve deficits. Motor grossly within normal limits. Normal speech. Tremor present. Results - Labs CBC & Chem 7: 04/09/18 11:45 04/09/18 11:45 Labs: Short CBC 04/09/18 Range/Units 11:45 WBC 5.8 (4.0-11.0) th/mm3 Hgb 13.9 (13.0-17.0) gm/dL Hct 42.7 (39.0-51.0) % Plt Count 190 (150-450) th/mm3 BMP 04/09/18 11:45 Sodium 138 Potassium 3.9 Chloride 97 L Carbon Dioxide 24.5 BUN 6 L Creatinine 0.63 Calcium 9.2 Cardiac Enzymes 04/09/18 04/09/18 Range/Units 11:45 11:45 Troponin I Less than 0.02 L Cancelled (0.02-0.05) ng/mL Liver Function 04/09/18 Range/Units 11:45 Total Bilirubin 1.1 H (0.2-1.0) mg/dL AST 228 H (15-37) U/L ALT 61 (12-78) U/L Alkaline Phosphatase 118 H (45-117) U/L Albumin 4.0 (3.4-5.0) g/dL - Imaging Impressions Chest X-Ray 04/09/18 11:28 CONCLUSION: 1. Chronic scarring and benign calcifications. 2. No acute cardiopulmonary disease. Caprini VTE Risk Assessment Caprini VTE Risk Assessment: Moderate/High Risk (score >= 2) Caprini Risk Assessment Model: Point Value = 1 Point Value = 2 Point Value = 3 Point Value = 5 Age 41-60 Minor surgery BMI > 25 kg/m2 Swollen legs Varicose veins or History of unexplained or recurrent spontaneous Oral contraceptives or hormone replacement Sepsis (< 1 month) Serious lung disease, including pneumonia (< 1 month) Abnormal pulmonary function Acute myocardial infarction Congestive heart failure (< 1 month) History of inflammatory bowel disease Medical patient at bed rest Age 61-74 Arthroscopic surgery Major open surgery (> 45 min) Laparoscopic surgery (> 45 min) Malignancy Confined to bed (> 72 hours) Immobilizing plaster cast Central venous access Age >= 75 History of VTE Family history of VTE Factor V Leiden Prothrombin [id number] Lupus anticoagulant Anticardiolipin antibodies Elevated serum homocysteine Heparin-induced thrombocytopenia Other congenital or acquired thrombophilia Stroke (< 1 month) Elective arthroplasty Hip, pelvis, or leg fracture Acute spinal cord injury (< 1 month) Prophylaxis Regimen: Total Risk Factor Score Risk Level Prophylaxis Regimen 0-1 Low Early ambulation 2 Moderate Order ONE of the following: *Sequential Compression Device (SCD) *Heparin 5000 units SQ BID 3-4 Higher Order ONE of the following medications: *Heparin 5000 units SQ TID *Enoxaparin/Lovenox 40 mg SQ daily (WT < 150 kg, CrCl > 30 mL/min) *Enoxaparin/Lovenox 30 mg SQ daily (WT < 150 kg, CrCl > 10-29 mL/min) *Enoxaparin/Lovenox 30 mg SQ BID (WT < 150 kg, CrCl > 30 mL/min) AND/OR *Sequential Compression Device (SCD) 5 or more Highest Order ONE of the following medications: *Heparin 5000 units SQ TID (Preferred with Epidurals) *Enoxaparin/Lovenox 40 mg SQ daily (WT < 150 kg, CrCl > 30 mL/min) *Enoxaparin/Lovenox 30 mg SQ daily (WT < 150 kg, CrCl > 10-29 mL/min) *Enoxaparin/Lovenox 30 mg SQ BID (WT < 150 kg, CrCl > 30 mL/min) AND *Sequential Compression Device (SCD) Assessment and Plan - Plan Acute on chronic pancreatitis Lipase over 4000. He continues to drink large quantities of vodka. - keep the pt NPO with IVFs. - alcohol cessation instruction. - morphine as needed for pain. Hematemesis Hemoglobin is stable. Guaiac negative in the ED. - antiemetics as needed. - follow CBC and transfuse as needed. - IV PPI BID. Alcohol abuse/ withdrawal The pt is tremulous. He drinks half a gallon of vodka daily. - alcohol cessation instruction. - case sealer consult. - CIWA protocol. - MVI, folate and thiamine. - seizure precautions. Hyperglycemia Likely a stress reaction. - follow BMP. Check an A1c if needed. Cirrhosis S/t HBV, HCV and alcohol abuse. Seems euvolemic at this time. - alcohol cessation instruction. - outpt follow-up. PPx: SCDs
--- NOTE | 2018-04-09 15:42 | CT ---
EXAM DATE: 04/09/2018 3:14 PM EDT AGE/SEX: 52 years / Male INDICATIONS: Abdominal pain, nausea, vomiting, diarrhea for two days. Abdominal distention. Vomiting blood. CLINICAL DATA: This is the patient's initial encounter. Patient reports that signs and symptoms have been present for 2 days and indicates a pain score of 10/10. MEDICAL/SURGICAL HISTORY: Chronic obstructive pulmonary disease. Rheumatoid arthritis. Hepati tis B. Hepatitis C. None. ORAL CONTRAST: Partial prescribed oral contrast ingested. RADIATION DOSE: 9.44 CTDI (mGy) COMPARISON: [facility] – [place] ABDOMEN & PELVIS W CONTRAST, 03/26/2018. . TECHNIQUE: Multiple contiguous axial images were obtained through the abdomen and pelvis following b olus infusion of 95 ml Omnipaque 350 (iohexol) nonionic water-soluble contrast as a single exam dos e. Partial prescribed oral contrast ingested. Using automated exposure control and adjustment of the mA and/or kV according to patient size, radiation dose was kept as low as reasonably achievable to o btain optimal diagnostic quality images. DICOM format image data is available electronically for rev iew and comparison. FINDINGS: Lower Lungs: The visualized lower lungs are clear. Liver: The liver has a homogeneous density without space-occupying lesion. There is no dilation of th e biliary tree. Spleen: Homogeneous density without enlargement. Pancreas: There is an inflammatory process surrounding the entire pancreas but most pronounced at th e level of the pancreatic head. The pancreas enhances normally with the contrast. No ductal dilatatio n. No discernible choledocholithiasis.. Kidneys: Normal in size and shape. No evidence of mass or hydronephrosis. Adrenal Glands: Unremarkable. Aorta: The aorta and proximal iliac vessels are grossly unremarkable without aneurysmal dilation. Bowel/Mesentery: There is mild distention of proximal small bowel loops within the upper abdomen. Th e stomach and colon are unremarkable. No free air or free fluid. Abdominal Wall: Intact. Retroperitoneum: No evidence of adenopathy in the retrocrural, para-aortic, or deep pelvic regions. Bladder: Contours are smooth. Reproductive Organs: No abnormal masses or calcifications seen. Inguinal: The inguinal region is unremarkable without evidence of adenopathy. Bony Structures: Unremarkable. CONCLUSION: 1. Acute pancreatitis. No choledocholithiasis or ductal dilatation. No pseudocyst or hemorrhage. 2. A few mildly distended small bowel loops suggesting a focal ileus. Electronically signed by: Zeyad Yoon MD 04/09/2018 3:40 PM EDT
[2018-04-09] MEDS: Morphine Inj 4 MG/ML Vial IV.PUSH PRN ×2 (16:37→20:26)
[2018-04-09] MEDS: Thiamine Inj 100 MG in Sodium Chlor 0.9% Inj 100 ML IV.SIG SCH (17:44)
[2018-04-09] MEDS: Senna/Docusate Sodium 8.6/50 MG Tablet PO SCH (20:28)
[2018-04-09] MEDS: Pantoprazole Inj 40 MG Vial IV.PUSH SCH (20:28)
[2018-04-10] MEDS: Sod Chloride 0.9% Inj 1,000 ML IV.CONT SCH ×4 (00:05→22:47)
[2018-04-10] MEDS: Morphine Inj 4 MG/ML Vial IV.PUSH PRN ×6 (01:03→21:51)
[2018-04-10] MEDS: LORazepam 1 MG Tablet PO PRN ×3 (02:30→20:26)
[2018-04-10] MEDS: Thiamine Inj 100 MG in Sodium Chlor 0.9% Inj 100 ML IV.SIG SCH (08:52)
[2018-04-10] MEDS: Pantoprazole Inj 40 MG Vial IV.PUSH SCH ×2 (08:52→22:45)
[2018-04-10] MEDS: Folic Acid 1 MG Tablet PO SCH (08:53)
[2018-04-10] MEDS: Senna/Docusate Sodium 8.6/50 MG Tablet PO SCH ×2 (08:53→20:26)
[2018-04-10 09:07] LABS: Baso % (Auto) 0.4 % (0.0-2.0); Eos % (Auto) 0.4 % (0.0-4.0); Hematocrit 47.4 % (39.0-51.0); Hemoglobin 15.4 gm/dL (13.0-17.0); Lymph # (Auto) 0.7 th/mm3 (1.0-4.8); Lymph % (Auto) 9.5 % (9.0-44.0); Mean Corpuscular HGB Conc 32.6 % (32.0-36.0); Mean Corpuscular Hemoglobin 28.8 pg (27.0-34.0); Mean Corpuscular Volume 88.3 fL (80.0-100.0); Mean Platelet Volume 8.6 fL (7.0-11.0); Mono # (Auto) 0.5 th/mm3 (0.0-0.9); Mono % (Auto) 6.9 % (0.0-8.0); Neut # (Auto) 6.5 th/mm3 (1.8-7.7); Neut % (Auto) 82.8 % (16.0-70.0); Platelet Count 142 th/mm3 (150-450); Red Blood Count 5.37 mil/mm3 (4.50-5.90); White Blood Count 7.8 th/mm3 (4.0-11.0)
[2018-04-10 09:18] LABS: INR 1.2 Ratio; Prothrombin Time 11.7 sec (9.8-11.6)
[2018-04-10 09:29] LABS: Albumin 3.9 g/dL (3.4-5.0); Anion Gap 13 meq/L (5-15); Aspartate Aminotransferase 169 U/L (15-37); Blood Urea Nitrogen 5 mg/dL (7-18); Carbon Dioxide 23.3 meq/L (21.0-32.0); Chloride 95 meq/L (98-107); Glucose,Random 143 mg/dL (74-106); Potassium 3.6 meq/L (3.5-5.1); Sodium 131 meq/L (136-145)
[2018-04-10 09:31] LABS: Alanine Aminotransferase 51 U/L (12-78)
[2018-04-10 09:33] LABS: Alkaline Phosphatase 132 U/L (45-117); Lipase 4639 U/L (73-393); Total Protein 8.3 g/dL (6.4-8.2)
--- NOTE | 2018-04-10 10:32 | ECG ---
Date Performed: 04/09/2018 Time Performed: 12:38:27 PTAGE: 52 years EKG: Sinus rhythm NORMAL ECG PREVIOUS TRACING 03/26/2018 09.55 Since the previous tracing, no significant change noted DOCTOR: Ariella Ndiaye Interpretating Date/Time 04/10/2018 10:32:41
--- NOTE | 2018-04-10 10:52 | P.PN ---
Subjective Interval history: Follow up for acute pancreatitis likely due to alcoholism. Patient complains of significant abdominal pain, no fever, chills. Feels like he can tolerate some liquid diet. Physical Exam Vital signs: Vital Signs 04/09/18 11:25 04/09/18 12:35 04/09/18 12:50 Temperature 98.2 F Pulse Rate 81 86 Respiratory Rate 18 20 Blood Pressure 185/115 H Pulse Oximetry 98 98 04/09/18 14:24 04/09/18 14:32 04/09/18 15:00 Temperature 98.2 F Pulse Rate 94 H Respiratory Rate 16 17 Blood Pressure 188/122 H Pulse Oximetry 98 04/09/18 15:33 04/09/18 16:30 04/09/18 17:24 Temperature 98.2 F 97.3 F L Pulse Rate 88 93 H Respiratory Rate 18 20 24 Blood Pressure 178/84 H 188/124 H Pulse Oximetry 97 96 04/09/18 17:46 04/09/18 19:00 04/09/18 20:00 Temperature 97.2 F L Pulse Rate 98 H Respiratory Rate 25 H 20 Blood Pressure 182/122 H 151/120 H Pulse Oximetry 95 96 04/10/18 00:00 04/10/18 03:12 04/10/18 04:00 Temperature 98 F 98.7 F Pulse Rate 101 H 133 H 114 H Respiratory Rate 20 20 Blood Pressure 174/119 H 173/123 H Pulse Oximetry 98 99 04/10/18 08:00 04/10/18 09:00 Temperature 98.1 F Pulse Rate 109 H 124 H Respiratory Rate 16 Blood Pressure 159/116 H Pulse Oximetry 97 Intake & Output 04/09/18 04/10/18 04/10/18 18:59 06:59 18:59 Intake Total 1761 / 1761 2099 101 / 101 Output Total 200 / 200 Balance 1561 / 1561 2099 101 / 101 Weight 90.718 kg Intake: IV 1101 / 1101 2099 101 / 101 NS Inj 1,000 ML @ 150 mls/hr IV 1999 .CONT .Q6H40M SOUMYA Rx#:[id number] Thiamine Inj 100 MG In NS Inj 101 / 101 101 / 101 100 ML @ 100 mls/hr IV.SIG DAILY SOUMYA Rx#:[id number] Oral 60 / 60 Other 600 / 600 Output: Emesis 200 / 200 Other: Other Intake Source Saline Solution # Voids 1 2 Date of Last Bowel Movement 04/09/18 04/09/18 # Emeses 1 Narrative: GENERAL: Alert, Oriented x 3, NAD. SKIN: Warm and dry. HEAD: Normocephalic. EYES: No scleral icterus. No injection or drainage. NECK: Supple, trachea midline. No JVD or lymphadenopathy. CARDIOVASCULAR: Regular rate and rhythm without murmurs, gallops, or rubs. RESPIRATORY: Breath sounds equal bilaterally. No accessory muscle use. GASTROINTESTINAL: Abdomen soft, mildly tender to palpation over epigastric area , nondistended. MUSCULOSKELETAL: No cyanosis, or edema. BACK: Nontender without obvious deformity. No CVA tenderness. Results - Labs CBC & Chem 7: 04/10/18 07:35 04/10/18 07:35 Laboratory Results - last 24 hr 04/09/18 04/09/18 04/09/18 11:45 11:45 11:45 WBC 5.8 RBC 4.84 Hgb 13.9 Hct 42.7 MCV 88.4 MCH 28.7 MCHC 32.5 RDW 19.9 H Plt Count 190 MPV 8.2 Neut % (Auto) 68.1 Lymph % (Auto) 22.1 [place] % (Auto) 8.3 H Eos % (Auto) 1.0 Baso % (Auto) 0.5 Neut # (Auto) 4.0 Lymph # (Auto) 1.3 [place] # (Auto) 0.5 Eos # (Auto) 0.1 Baso # (Auto) 0.0 WBC Differential . Differential Comment Auto diff final PT 11.2 INR 1.1 APTT 24.5 Sodium 138 Potassium 3.9 Chloride 97 L Carbon Dioxide 24.5 Anion Gap 17 H BUN 6 L Creatinine 0.63 Estimated GFR Greater than 89 Random Glucose 152 H Calcium 9.2 Magnesium Total Bilirubin 1.1 H AST 228 H ALT 61 Alkaline Phosphatase 118 H Troponin I Less than 0.02 L Total Protein 7.6 Albumin 4.0 Lipase 4616 H Blood Type Antibody Screen 04/09/18 04/09/18 04/10/18 11:45 12:50 07:35 WBC 7.8 RBC 5.37 Hgb 15.4 Hct 47.4 MCV 88.3 MCH 28.8 MCHC 32.6 RDW 20.0 H Plt Count 142 L MPV 8.6 Neut % (Auto) 82.8 H Lymph % (Auto) 9.5 [place] % (Auto) 6.9 Eos % (Auto) 0.4 Baso % (Auto) 0.4 Neut # (Auto) 6.5 Lymph # (Auto) 0.7 L [place] # (Auto) 0.5 Eos # (Auto) 0.0 Baso # (Auto) 0.0 WBC Differential . Differential Comment Auto diff final PT INR APTT Sodium Potassium Chloride Carbon Dioxide Anion Gap BUN Creatinine Estimated GFR Random Glucose Calcium Magnesium Total Bilirubin AST ALT Alkaline Phosphatase Troponin I Cancelled Total Protein Albumin Lipase Blood Type O Positive Antibody Screen Negative 04/10/18 04/10/18 07:35 07:35 WBC RBC Hgb Hct MCV MCH MCHC RDW Plt Count MPV Neut % (Auto) Lymph % (Auto) [place] % (Auto) Eos % (Auto) Baso % (Auto) Neut # (Auto) Lymph # (Auto) [place] # (Auto) Eos # (Auto) Baso # (Auto) WBC Differential Differential Comment PT 11.7 H INR 1.2 APTT Sodium 131 L Potassium 3.6 Chloride 95 L Carbon Dioxide 23.3 Anion Gap 13 BUN 5 L Creatinine 0.54 L Estimated GFR Random Glucose 143 H Calcium 9.0 Magnesium 2.0 Total Bilirubin 1.5 H AST 169 H ALT 51 Alkaline Phosphatase 132 H Troponin I Total Protein 8.3 H D Albumin 3.9 Lipase 4639 H Blood Type Antibody Screen - Imaging Impressions Chest X-Ray 04/09/18 11:28 CONCLUSION: 1. Chronic scarring and benign calcifications. 2. No acute cardiopulmonary disease. Abdomen/Pelvis CT 04/09/18 11:53 CONCLUSION: 1. Acute pancreatitis. No choledocholithiasis or ductal dilatation. No pseudocyst or hemorrhage. 2. A few mildly distended small bowel loops suggesting a focal ileus. Assessment and Plan - Assessment (1) Gastrointestinal hemorrhage with hematemesis Code(s): K92.0 - Hematemesis Status: Acute (2) Alcohol withdrawal Code(s): F10.239 - Alcohol dependence with withdrawal, unspecified Status: Acute (3) Acute pancreatitis Code(s): K85.90 - Acute pancreatitis without necrosis or infection, unspecified Status: Acute - Plan The patient is a 52-year-old male with a past medical history of hepatitis B, hepatitis C, cirrhosis and pancreatitis who is presenting to the hospital with abdominal pain, nausea and vomiting and diarrhea. He had nausea and vomiting prior to coming to the hospital and apparently had hematemesis as well. Acute pancreatitis - Lipase over 4600, likely due to Alcoholism - Will advance diet to Clear liquid - Continue IV fluid today - Pain meds with IV morphine. Hematemesis - Patient underwent EGD in December 2017 - showed gastritis and esophagitis. No varices mentioned. - If further episodes occur, we will consult GI. - Continue IV protonix BID for now. Alcoholism - Continue CIWA protocol, Thiamine, Folic acid. - Patient counselled. Hepatic steatosis Hx of Hep B, C - GB US in 01/2018 shows steatosis. No mention of Cirrhosis. Full code. SCDs. Discharge plan: If he is able to tolerate diet, he can likely be discharged. Anticipate discharge in the 24-48 hours. (2) Alcohol withdrawal Qualifiers: Complication of substance-induced condition: with unspecified complication Qualified Code(s): F10.239 - Alcohol dependence with withdrawal, unspecified (3) Acute pancreatitis Qualifiers: Pancreatitis type: unspecified pancreatitis type Acute pancreatitis complication: unspecified Qualified Code(s): K85.90 - Acute pancreatitis without necrosis or infection, unspecified
[2018-04-10] MEDS: Temazepam 15 MG Capsule PO PRN (22:45)
[2018-04-11] MEDS: LORazepam 1 MG Tablet PO PRN ×6 (00:49→23:13)
[2018-04-11] MEDS: Morphine Inj 4 MG/ML Vial IV.PUSH PRN ×7 (01:41→21:52)
[2018-04-11] MEDS ORDERED: Acetaminophen 325 MG Tablet PO ONE (03:39)
[2018-04-11] MEDS: Acetaminophen 325 MG Tablet PO PRN (03:50)
[2018-04-11] MEDS: Sod Chloride 0.9% Inj 1,000 ML IV.CONT SCH ×3 (05:53→14:18)
[2018-04-11] MEDS: Folic Acid 1 MG Tablet PO SCH (08:37)
[2018-04-11] MEDS: Senna/Docusate Sodium 8.6/50 MG Tablet PO SCH ×2 (08:37→21:53)
[2018-04-11] MEDS: Thiamine Inj 100 MG in Sodium Chlor 0.9% Inj 100 ML IV.SIG SCH (08:38)
[2018-04-11] MEDS: Pantoprazole Inj 40 MG Vial IV.PUSH SCH ×2 (08:39→21:53)
--- NOTE | 2018-04-11 13:35 | P.PN ---
Subjective Interval history: Follow up for acute pancreatitis due to alcoholism. Patient is currently doing well. However she complains of persistent abdominal pain. He does not want to eat anything. No fever or chills. Mother is at bedside. Physical Exam Vital signs: Vital Signs 04/10/18 13:52 04/10/18 16:00 04/10/18 20:00 Temperature 97.9 F 97.6 F Pulse Rate 104 H 105 H 104 H Respiratory Rate 14 17 Blood Pressure 179/112 H 165/111 H Pulse Oximetry 99 99 04/11/18 00:00 04/11/18 04:00 04/11/18 08:00 Temperature 97.4 F L 98 F 97.7 F Pulse Rate 108 H 98 H 97 H Respiratory Rate 16 16 18 Blood Pressure 135/88 148/104 H 170/111 H Pulse Oximetry 100 99 98 04/11/18 08:20 04/11/18 12:00 Temperature 97.4 F L Pulse Rate 99 H 92 H Respiratory Rate 17 Blood Pressure 159/112 H Pulse Oximetry 98 Intake & Output 04/10/18 04/11/18 04/11/18 18:59 06:59 18:59 Intake Total 1101 / 1101 2322 / 2322 101 / 101 Balance 1101 / 1101 2322 / 2322 101 / 101 Weight 90.8 kg Intake: IV 1101 / 1101 1999 101 / 101 NS Inj 1,000 ML @ 150 mls/hr IV 1000 / 1000 1999 .CONT .Q6H40M SOUMYA Rx#:[id number] Thiamine Inj 100 MG In NS Inj 101 / 101 101 / 101 100 ML @ 100 mls/hr IV.SIG DAILY SOUMYA Rx#:[id number] Oral 322 / 322 Other: # Voids 5 Date of Last Bowel Movement 04/10/18 Narrative: GENERAL: Alert, Oriented x 3, NAD. SKIN: Warm and dry. HEAD: Normocephalic. EYES: No scleral icterus. No injection or drainage. NECK: Supple, trachea midline. No JVD or lymphadenopathy. CARDIOVASCULAR: Regular rate and rhythm without murmurs, gallops, or rubs. RESPIRATORY: Breath sounds equal bilaterally. No accessory muscle use. GASTROINTESTINAL: Abdomen soft, mildly tender to palpation over epigastric area , nondistended. MUSCULOSKELETAL: No cyanosis, or edema. BACK: Nontender without obvious deformity. No CVA tenderness. Results - Labs CBC & Chem 7: 04/10/18 07:35 04/10/18 07:35 - Imaging Chest X-Ray 04/09/18 11:28 CONCLUSION: 1. Chronic scarring and benign calcifications. 2. No acute cardiopulmonary disease. Abdomen/Pelvis CT 04/09/18 11:53 CONCLUSION: 1. Acute pancreatitis. No choledocholithiasis or ductal dilatation. No pseudocyst or hemorrhage. 2. A few mildly distended small bowel loops suggesting a focal ileus. Assessment and Plan - Assessment (1) Gastrointestinal hemorrhage with hematemesis Code(s): K92.0 - Hematemesis Status: Acute (2) Alcohol withdrawal Code(s): F10.239 - Alcohol dependence with withdrawal, unspecified Status: Acute (3) Acute pancreatitis Code(s): K85.90 - Acute pancreatitis without necrosis or infection, unspecified Status: Acute - Plan The patient is a 52-year-old male with a past medical history of hepatitis B, hepatitis C, cirrhosis and pancreatitis who is presenting to the hospital with abdominal pain, nausea and vomiting and diarrhea. He had nausea and vomiting prior to coming to the hospital and apparently had hematemesis as well. Acute pancreatitis - Lipase over 4600, likely due to Alcoholism - Continue clear liquid - Reduce IV fluid to 75 cc/h - Pain meds with IV morphine. Increase morphine to 5 mg every 3 hours as needed Hematemesis - Patient underwent EGD in December 2017 - showed gastritis and esophagitis. No varices mentioned. - If further episodes occur, we will consult GI. - Continue IV protonix BID for now. Alcoholism - Continue CIWA protocol, Thiamine, Folic acid. - Patient counselled. Hepatic steatosis Hx of Hep B, C - GB US in 01/2018 shows steatosis. No mention of Cirrhosis. Full code. SCDs. Discharge plan: Discharge home when patient is able to tolerate p.o. food and pain is reasonably controlled. (2) Alcohol withdrawal Qualifiers: Complication of substance-induced condition: with unspecified complication Qualified Code(s): F10.239 - Alcohol dependence with withdrawal, unspecified (3) Acute pancreatitis Qualifiers: Pancreatitis type: unspecified pancreatitis type Acute pancreatitis complication: unspecified Qualified Code(s): K85.90 - Acute pancreatitis without necrosis or infection, unspecified
[2018-04-11] MEDS: Temazepam 15 MG Capsule PO PRN (21:48)
[2018-04-12] MEDS: Morphine Inj 4 MG/ML Vial IV.PUSH PRN ×3 (00:51→08:14)
[2018-04-12] MEDS: LORazepam 1 MG Tablet PO PRN ×4 (03:00→21:59)
[2018-04-12] MEDS: Sod Chloride 0.9% Inj 1,000 ML IV.CONT SCH ×2 (05:11→17:02)
[2018-04-12] MEDS: Senna/Docusate Sodium 8.6/50 MG Tablet PO SCH (08:14)
[2018-04-12] MEDS: Thiamine Inj 100 MG in Sodium Chlor 0.9% Inj 100 ML IV.SIG SCH (08:14)
[2018-04-12] MEDS: Folic Acid 1 MG Tablet PO SCH (08:14)
[2018-04-12] MEDS: Pantoprazole Inj 40 MG Vial IV.PUSH SCH ×2 (08:15→21:46)
--- NOTE | 2018-04-12 12:34 | P.PN ---
Subjective Interval history: Follow up for acute pancreatitis due to alcoholism. Patient continues to have abdominal pain, nausea and vomiting. No fever, chills. Physical Exam Vital signs: Vital Signs 04/11/18 16:00 04/11/18 20:00 04/11/18 23:57 Temperature 97.5 F L 98.2 F 98.1 F Pulse Rate 93 H 104 H 82 Respiratory Rate 15 18 18 Blood Pressure 166/114 H 181/116 H 172/82 H Pulse Oximetry 99 99 99 04/12/18 04:00 04/12/18 08:00 Temperature 97.3 F L 97.8 F Pulse Rate 88 89 Respiratory Rate 15 17 Blood Pressure 175/107 H 158/98 H Pulse Oximetry 99 96 Intake & Output 04/11/18 04/12/18 04/12/18 18:59 06:59 18:59 Intake Total 1101 / 1101 1000 / 1000 101 / 101 Output Total 900 / 900 600 / 600 Balance 201 / 201 1000 / 1000 -499 / -499 Weight 90.4 kg Intake: IV 1101 / 1101 1000 / 1000 101 / 101 NS Inj 1,000 ML @ 75 mls/hr IV. 1000 / 1000 1000 / 1000 CONT .[id number] [facility] Rx#:[id number] Thiamine Inj 100 MG In NS Inj 101 / 101 101 / 101 100 ML @ 100 mls/hr IV.SIG DAILY [facility] Rx#:[id number] Output: Urine 900 / 900 600 / 600 Other: # Voids 5 Narrative: GENERAL: Alert, Oriented x 3, NAD. SKIN: Warm and dry. HEAD: Normocephalic. EYES: No scleral icterus. No injection or drainage. NECK: Supple, trachea midline. No JVD or lymphadenopathy. CARDIOVASCULAR: Regular rate and rhythm without murmurs, gallops, or rubs. RESPIRATORY: Breath sounds equal bilaterally. No accessory muscle use. GASTROINTESTINAL: Abdomen soft, mildly tender to palpation over epigastric area , nondistended. MUSCULOSKELETAL: No cyanosis, or edema. BACK: Nontender without obvious deformity. No CVA tenderness. Results - Labs CBC & Chem 7: 04/10/18 07:35 04/10/18 07:35 Assessment and Plan - Assessment (1) Gastrointestinal hemorrhage with hematemesis Code(s): K92.0 - Hematemesis Status: Acute (2) Alcohol withdrawal Code(s): F10.239 - Alcohol dependence with withdrawal, unspecified Status: Acute (3) Acute pancreatitis Code(s): K85.90 - Acute pancreatitis without necrosis or infection, unspecified Status: Acute - Plan The patient is a 52-year-old male with a past medical history of hepatitis B, hepatitis C, cirrhosis and pancreatitis who is presenting to the hospital with abdominal pain, nausea and vomiting and diarrhea. He had nausea and vomiting prior to coming to the hospital and apparently had hematemesis as well. Acute pancreatitis - Lipase over 4600, likely due to Alcoholism - Continue clear liquid - Reduce IV fluid to 75 cc/h - Continue Zofran ODT. - Will change pain meds to [place] PO and Dilaudid IV PRN for breakthrough. Hematemesis - Patient underwent EGD in December 2017 - showed gastritis and esophagitis. No varices mentioned. - If further episodes occur, we will consult GI. - Continue IV protonix BID for now. Alcoholism - Continue CIWA protocol, Thiamine, Folic acid. - Patient counselled. Hepatic steatosis Hx of Hep B, C - GB US in 01/2018 shows steatosis. No mention of Cirrhosis. Full code. SCDs. Discharge plan: Discharge home when patient is able to tolerate p.o. food and pain is reasonably controlled. (2) Alcohol withdrawal Qualifiers: Complication of substance-induced condition: with unspecified complication Qualified Code(s): F10.239 - Alcohol dependence with withdrawal, unspecified (3) Acute pancreatitis Qualifiers: Pancreatitis type: unspecified pancreatitis type Acute pancreatitis complication: unspecified Qualified Code(s): K85.90 - Acute pancreatitis without necrosis or infection, unspecified
[2018-04-12] MEDS: HYDROmorphone PF Inj 2 MG/ML Vial IV.PUSH PRN ×2 (19:31→23:59)
[2018-04-12] MEDS: Temazepam 15 MG Capsule PO PRN (21:47)
[2018-04-13] MEDS: Senna/Docusate Sodium 8.6/50 MG Tablet PO SCH ×3 (00:04→20:48)
[2018-04-13] MEDS: HYDROmorphone PF Inj 2 MG/ML Vial IV.PUSH PRN ×4 (03:57→22:56)
[2018-04-13] MEDS: Folic Acid 1 MG Tablet PO SCH (08:38)
[2018-04-13] MEDS: Pantoprazole Inj 40 MG Vial IV.PUSH SCH ×2 (08:38→20:47)
[2018-04-13] MEDS: Thiamine Inj 100 MG in Sodium Chlor 0.9% Inj 100 ML IV.SIG SCH (08:39)
[2018-04-13] MEDS: Acetaminophen 325 MG Tablet PO PRN (08:43)
--- NOTE | 2018-04-13 12:46 | P.PNIM ---
Subjective Interval history: Pancreatitis remains, lipase level is 4639. Not yet stable for discharge. Patient still complains of abdominal pain. Physical Exam Vital signs: Vital Signs 04/12/18 16:00 04/12/18 20:00 04/13/18 00:00 Temperature 97.3 F L 97.4 F L 97.5 F L Pulse Rate 93 H 98 H 93 H Respiratory Rate 18 16 16 Blood Pressure 136/84 149/95 H 141/95 H Pulse Oximetry 98 98 98 04/13/18 04:00 04/13/18 07:48 Temperature 97.6 F 97.1 F L Pulse Rate 98 H 95 H Respiratory Rate 16 17 Blood Pressure 151/97 H 138/96 H Pulse Oximetry 98 100 Intake & Output 04/12/18 04/13/18 04/13/18 18:59 06:59 18:59 Intake Total 3931 / 3931 101 / 101 Output Total 600 / 600 Balance 3331 / 3331 101 / 101 Weight 90.3 kg Intake: IV 1051 / 1051 101 / 101 NS Inj 1,000 ML @ 75 mls/hr IV. 950 / 950 CONT .[id number] [facility] Rx#:[id number] Thiamine Inj 100 MG In NS Inj 101 / 101 101 / 101 100 ML @ 100 mls/hr IV.SIG DAILY [facility] Rx#:[id number] Oral 2880 / 2880 Output: Urine 600 / 600 Other: # Voids 6 # Bowel Movements 0 Narrative: GENERAL: NAD, A&Ox3 HEAD: Normocephalic. NECK: Supple, trachea midline. No lymphadenopathy. EYES: No scleral icterus. No injection or drainage. CARDIOVASCULAR: Regular rate and rhythm without murmurs, gallops, or rubs. RESPIRATORY: Breath sounds equal bilaterally. No accessory muscle use. GASTROINTESTINAL: Abdomen soft, non-tender, nondistended. MUSCULOSKELETAL: No cyanosis, or edema. SKIN: Warm and dry. NEURO: No focal neurological deficits. Results - Labs CBC & Chem 7: 04/10/18 07:35 04/10/18 07:35 Assessment and Plan - Assessment (1) Gastrointestinal hemorrhage with hematemesis Code(s): K92.0 - Hematemesis Status: Acute (2) Alcohol withdrawal Code(s): F10.239 - Alcohol dependence with withdrawal, unspecified Status: Acute (3) Acute pancreatitis Code(s): K85.90 - Acute pancreatitis without necrosis or infection, unspecified Status: Acute - Plan 52-year-old male admitted secondary to acute pancreatitis related to alcohol abuse Acute on chronic pancreatitis Start diet Continue to monitor for drop in lipase Continue IV fluids Pain treatments as needed Hematemesis Follow CBC Continue antiemetics No further vomiting thus far today Alcohol abuse Alcohol withdrawal CIWA protocol Seizure precautions Multivitamin, folate, thiamine Hyperglycemia Resolved Cirrhosis Hepatitis B/hepatitis C Patient recommended to quit alcohol Continue monitoring as an outpatient PPx: SCDs (2) Alcohol withdrawal Qualifiers: Complication of substance-induced condition: with unspecified complication Qualified Code(s): F10.239 - Alcohol dependence with withdrawal, unspecified (3) Acute pancreatitis Qualifiers: Pancreatitis type: unspecified pancreatitis type Acute pancreatitis complication: unspecified Qualified Code(s): K85.90 - Acute pancreatitis without necrosis or infection, unspecified
[2018-04-13] MEDS: LORazepam 1 MG Tablet PO PRN ×2 (13:04→17:42)
[2018-04-13] MEDS: Sod Chloride 0.9% Inj 1,000 ML IV.CONT SCH ×2 (18:40→20:17)
[2018-04-13] MEDS: Temazepam 15 MG Capsule PO PRN (20:48)
[2018-04-14] MEDS: HYDROmorphone PF Inj 2 MG/ML Vial IV.PUSH PRN ×3 (03:26→19:00)
[2018-04-14] MEDS ORDERED: Haloperidol Inj 5 MG/ML Ampul IM ONE (05:13)
[2018-04-14 07:59] LABS: Baso % (Auto) 0.4 % (0.0-2.0); Eos # (Auto) 0.1 th/mm3 (0.0-0.4); Eos % (Auto) 3.6 % (0.0-4.0); Hematocrit 36.4 % (39.0-51.0); Hemoglobin 11.8 gm/dL (13.0-17.0); Lymph % (Auto) 28.6 % (9.0-44.0); Mean Corpuscular HGB Conc 32.5 % (32.0-36.0); Mean Corpuscular Hemoglobin 29.2 pg (27.0-34.0); Mean Corpuscular Volume 89.7 fL (80.0-100.0); Mean Platelet Volume 8.1 fL (7.0-11.0); Mono # (Auto) 0.6 th/mm3 (0.0-0.9); Mono % (Auto) 15.5 % (0.0-8.0); Neut # (Auto) 1.9 th/mm3 (1.8-7.7); Neut % (Auto) 51.9 % (16.0-70.0); Platelet Count 128 th/mm3 (150-450); Red Blood Count 4.05 mil/mm3 (4.50-5.90); Red Cell Distribution Width 19.3 % (11.6-17.2); White Blood Count 3.6 th/mm3 (4.0-11.0)
[2018-04-14] MEDS: Pantoprazole Inj 40 MG Vial IV.PUSH SCH ×2 (08:03→20:54)
[2018-04-14] MEDS: Senna/Docusate Sodium 8.6/50 MG Tablet PO SCH ×2 (08:03→20:54)
[2018-04-14] MEDS: Folic Acid 1 MG Tablet PO SCH (08:03)
[2018-04-14] MEDS: Thiamine Inj 100 MG in Sodium Chlor 0.9% Inj 100 ML IV.SIG SCH (08:04)
[2018-04-14 08:18] LABS: Alanine Aminotransferase 84 U/L (12-78); Albumin 3.7 g/dL (3.4-5.0); Aspartate Aminotransferase 186 U/L (15-37); Blood Urea Nitrogen 6 mg/dL (7-18); Calcium 9.3 mg/dL (8.5-10.1); Carbon Dioxide 27.5 meq/L (21.0-32.0); Glomerular Filtration Rate Greater Than 89 mL/min (>89); Glucose,Random 127 mg/dL (74-106); Lipase 1317 U/L (73-393)
[2018-04-14 08:54] LABS: Alkaline Phosphatase 88 U/L (45-117); Anion Gap 11 meq/L (5-15); Chloride 98 meq/L (98-107); Potassium 3.6 meq/L (3.5-5.1); Sodium 136 meq/L (136-145); Total Protein 7.2 g/dL (6.4-8.2)
[2018-04-14] MEDS: Sod Chloride 0.9% Inj 1,000 ML IV.CONT SCH (09:00)
--- NOTE | 2018-04-14 14:24 | P.PNIM ---
Subjective Interval history: No improvement in mental capacity. Still having DTs. Lipase improved significantly today, with diet present. Physical Exam Vital signs: Vital Signs 04/13/18 15:36 04/13/18 22:45 04/13/18 23:53 Temperature 98.1 F 98.8 F Pulse Rate 92 H 100 H Respiratory Rate 20 18 18 Blood Pressure 138/100 H 140/80 Pulse Oximetry 97 99 04/14/18 01:12 04/14/18 04:24 04/14/18 08:00 Temperature 97.9 F Pulse Rate 74 Respiratory Rate 18 18 20 Blood Pressure 141/86 H Pulse Oximetry 99 04/14/18 12:00 Temperature 98 F Pulse Rate 79 Respiratory Rate 20 Blood Pressure 135/86 Pulse Oximetry 98 Intake & Output 04/13/18 04/14/18 04/14/18 18:59 06:59 18:59 Intake Total 451 / 451 4800 / 4800 360 / 360 Output Total 600 / 600 3 / 3 Balance 451 / 451 4200 / 4200 357 / 357 Weight 81 kg Intake: IV 101 / 101 1300 / 1300 NS Inj 1,000 ML @ 75 mls/hr IV. 1300 / 1300 CONT .[id number] [facility] Rx#:[id number] Thiamine Inj 100 MG In NS Inj 101 / 101 100 ML @ 100 mls/hr IV.SIG DAILY [facility] Rx#:[id number] Oral 350 / 350 2900 / 2900 360 / 360 Other 600 / 600 Output: Urine 600 / 600 3 / 3 Other: Other Intake Source Saline Solution # Voids 3 3 Date of Last Bowel Movement 04/13/18 04/13/18 # Bowel Movements 0 Narrative: GENERAL: NAD, A&Ox1 HEAD: Normocephalic. NECK: Supple, trachea midline. No lymphadenopathy. EYES: No scleral icterus. No injection or drainage. CARDIOVASCULAR: Regular rate and rhythm without murmurs, gallops, or rubs. RESPIRATORY: Breath sounds equal bilaterally. No accessory muscle use. GASTROINTESTINAL: Abdomen soft, non-tender, nondistended. MUSCULOSKELETAL: No cyanosis, or edema. SKIN: Warm and dry. NEURO: No focal neurological deficits. Results - Labs CBC & Chem 7: 04/14/18 07:00 04/14/18 07:00 Laboratory Results - last 24 hr 04/14/18 04/14/18 07:00 07:00 WBC 3.6 L RBC 4.05 L Hgb 11.8 L Hct 36.4 L MCV 89.7 MCH 29.2 MCHC 32.5 RDW 19.3 H Plt Count 128 L MPV 8.1 Neut % (Auto) 51.9 Lymph % (Auto) 28.6 [place] % (Auto) 15.5 H Eos % (Auto) 3.6 Baso % (Auto) 0.4 Neut # (Auto) 1.9 Lymph # (Auto) 1.0 [place] # (Auto) 0.6 Eos # (Auto) 0.1 Baso # (Auto) 0.0 WBC Differential . Differential Comment Auto diff final Sodium 136 Potassium 3.6 Chloride 98 Carbon Dioxide 27.5 Anion Gap 11 BUN 6 L Creatinine 0.68 Estimated GFR Greater than 89 Random Glucose 127 H Calcium 9.3 Total Bilirubin 0.9 AST 186 H ALT 84 H Alkaline Phosphatase 88 Total Protein 7.2 D Albumin 3.7 Lipase 1317 H Assessment and Plan - Assessment (1) Gastrointestinal hemorrhage with hematemesis Code(s): K92.0 - Hematemesis Status: Acute (2) Alcohol withdrawal Code(s): F10.239 - Alcohol dependence with withdrawal, unspecified Status: Acute (3) Acute pancreatitis Code(s): K85.90 - Acute pancreatitis without necrosis or infection, unspecified Status: Acute - Plan 52-year-old male admitted secondary to acute pancreatitis related to alcohol abuse Continue DTs protocol. Monitor for improvement in mental status. Pancreatitis improving. Acute on chronic pancreatitis Start diet Continue to monitor for drop in lipase Continue IV fluids Pain treatments as needed Hematemesis Follow CBC Continue antiemetics No further vomiting thus far today Alcohol abuse Alcohol withdrawal CIWA protocol Seizure precautions Multivitamin, folate, thiamine Hyperglycemia Resolved Cirrhosis Hepatitis B/hepatitis C Patient recommended to quit alcohol Continue monitoring as an outpatient DVT Prophylaxis SCDs (2) Alcohol withdrawal Qualifiers: Complication of substance-induced condition: with unspecified complication Qualified Code(s): F10.239 - Alcohol dependence with withdrawal, unspecified (3) Acute pancreatitis Qualifiers: Pancreatitis type: unspecified pancreatitis type Acute pancreatitis complication: unspecified Qualified Code(s): K85.90 - Acute pancreatitis without necrosis or infection, unspecified
[2018-04-14] MEDS: Temazepam 15 MG Capsule PO PRN (23:09)
[2018-04-15] MEDS: HYDROmorphone PF Inj 2 MG/ML Vial IV.PUSH PRN ×2 (01:12→11:00)
[2018-04-15 03:10] VITALS: O2SAT 98
[2018-04-15] MEDS: Sod Chloride 0.9% Inj 1,000 ML IV.CONT SCH (07:30)
[2018-04-15] MEDS: LORazepam 1 MG Tablet PO PRN (09:07)
[2018-04-15] MEDS: Senna/Docusate Sodium 8.6/50 MG Tablet PO SCH (09:07)
[2018-04-15] MEDS: Folic Acid 1 MG Tablet PO SCH (09:07)
[2018-04-15] MEDS: Thiamine Inj 100 MG in Sodium Chlor 0.9% Inj 100 ML IV.SIG SCH (09:07)
[2018-04-15] MEDS: Pantoprazole Inj 40 MG Vial IV.PUSH SCH (09:08)
[2018-04-15] MEDS ORDERED: ALPRAZolam 0.5 MG Tablet PO PRN (12:25)
[2018-04-15 12:57] VITALS: BP 130/98; PULSE 88; RESP 18; TEMP 98.1
--- NOTE | 2018-04-15 13:40 | P.DS ---
Date of admission: 04/09/18 14:12 Primary care physician: No Primary Care Physician Brief History from admission: The patient is a 52-year-old male with a past medical history of hepatitis B, hepatitis C, cirrhosis and pancreatitis who is presenting to the hospital with abdominal pain, nausea and vomiting and diarrhea. The patient says that a couple of days ago he started to feel poorly. He said that he became very nauseous and started vomiting. He says that he had major stomach pain. He says that he developed diarrhea. His vomit was initially normal but he says later on last night he was vomiting blood. He says that he went to bed and try to sleep it off. This morning he woke up and he said his vomiting got even worse. He said that his mom drove him here to the hospital. He says that he is currently still drinking half a gallon of vodka daily. He says when he tried to stop in the past he developed seizures. He says he was here last week for broken toe bones and pulled neck muscles he sustained after tearing down a shed. He still complains of some pain in his neck. DS: Diagnosis - Discharge Diagnosis (1) Gastrointestinal hemorrhage with hematemesis Status: Acute (2) Alcohol withdrawal Status: Acute (3) Acute pancreatitis Status: Acute DS: Medications - Discharge Medications Prescriptions: alprazolam [Xanax] 0.5 mg PO Q8H PRN #10 tab PRN Reason: Anxiety hydrocodone-acetaminophen 1 tab PO Q6HR PRN #28 tab PRN Reason: Pain 3 to 10 melatonin 10 mg PO HS #60 tab pantoprazole 40 mg PO DAILY #30 tab DS: Summary Hospital Course: Mr. Pink is a 52-year-old male. He is admitted secondary to acute pancreatitis. Delirium tremens with associated encephalopathy has complicated his course. He had a long duration of delirium but today he has resolution of his delirium which represents resolution of his DTs. He is alert and oriented 3 today. He requests discharge. Lipase is improving through time. Patient is medically stable and cleared for discharge home today. - Time Spent with Patient Total time spent providing and/or coordinating discharge services: Exam Vital signs: Vital Signs 04/14/18 16:00 04/14/18 20:20 04/15/18 01:10 Temperature 97.9 F 97.9 F 98 F Pulse Rate 84 101 H 98 H Respiratory Rate 20 19 18 Blood Pressure 130/90 123/98 H 120/88 Pulse Oximetry 97 96 98 04/15/18 03:20 04/15/18 08:00 04/15/18 12:00 Temperature 98.1 F 97.3 F L 98.1 F Pulse Rate 68 93 H 88 Respiratory Rate 18 Blood Pressure 171/108 H 130/98 H Pulse Oximetry 98 98 98 Intake & Output 04/14/18 04/15/18 04/15/18 18:59 06:59 18:59 Intake Total 2781 / 2781 2049 Output Total 3 / 3 Balance 2778 / 2778 2049 Weight 81 kg Intake: IV 801 / 801 NS Inj 1,000 ML @ 75 mls/hr IV. 700 / 700 CONT .[id number] [facility] Rx#:[id number] Thiamine Inj 100 MG In NS Inj 101 / 101 100 ML @ 100 mls/hr IV.SIG DAILY [facility] Rx#:[id number] Oral 1080 / 1080 2049 Other 900 / 900 Output: Urine 3 / 3 Other: Other Intake Source Saline Solution # Voids 4 3 Date of Last Bowel Movement 04/13/18 # Bowel Movements 0 0 Results Procedures completed during hospitalization: none - Impressions ITS Impressions Chest X-Ray 04/09/18 11:28 CONCLUSION: 1. Chronic scarring and benign calcifications. 2. No acute cardiopulmonary disease. Abdomen/Pelvis CT 04/09/18 11:53 CONCLUSION: 1. Acute pancreatitis. No choledocholithiasis or ductal dilatation. No pseudocyst or hemorrhage. 2. A few mildly distended small bowel loops suggesting a focal ileus. Discharge Plan - Discharge Disposition Patient Disposition: 01 Discharge Home - Discharge Condition Condition: Stable - Discharge Order Discharge Orders: Discharge Order (Routine); Ordered 04/15/18 Ordered By: Roger Hunter - Discharge Details Anticipated Discharge Date: 04/14/18 - Physicians Team Primary Care Provider: Primary Care Maurilioi,No Attending Provider: Roger Hunter
[2018-04-15] MEDS ORDERED: Melatonin 5 MG Tablet PO SCH (21:00)
== END 2018-04-15 16:54 | disposition home or self-care (01) ==
LOC: NEPE 09:48 → NEDA 14:12 → N05 15:45
PROVIDERS: ADMIT Hospitalist; ATTEND Hospitalist

== ENCOUNTER 2018-04-16 14:27 | Observation (INO) ==
[2018-04-16] MEDS ORDERED: Clindamycin 900 mg/NS Premix 900 MG/50 ML PIGGYBACK IV.SIG ONE (15:28)
--- NOTE | 2018-04-16 15:52 | ED ---
HPI General Chief complaint: Skin/Abscess/Foreign Body Stated complaint: Lt Wrist Infection-Seen Here Yesterday Time Seen by Provider: 04/16/18 15:25 Source: patient, family and old records reviewed Mode of arrival: ambulatory Limitations: no limitations History of Present Illness HPI narrative: Patient is a 52-year-old male, with recent admission to the main hospital for pancreatitis and alcohol withdrawal, presents with complaint of cellulitis. He states that while in the hospital he had several IV sticks 1 of which was to his left hand/wrist. He states that the IV extravasated before it was discontinued. He reports that since he was discharged she has started to have erythema warmth and tenderness to that region which has been spreading. He was seen here last night where he was given a dose of clindamycin IV and offered admission which he declined. He was then discharged home with a prescription for clindamycin to take at home. He states that he does not have any money and cannot afford any antibiotics at this time. He reports that the erythema has spread since he was seen last night. MD complaint: discoloration Onset (ago): day(s) Location: LUE Severity: moderate Quality: dull Pain Consistency: constant Relieving factors: none Exacerbating factors: palpation Context: other Associated symptoms: chills Treatments prior to arrival: antibiotic Related Data Previous Rx's Medication Instructions Recorded alprazolam [Xanax] 0.5 mg PO Q8H PRN #10 tab 04/15/18 clindamycin HCl 300 mg PO Q8H 10 Days #30 cap 04/15/18 hydrocodone-acetaminophen 1 tab PO Q6HR PRN #28 tab 04/15/18 melatonin 10 mg PO HS #60 tab 04/15/18 pantoprazole 40 mg PO DAILY #30 tab 04/15/18 Allergies Allergy/AdvReac Type Severity Reaction Status Date / Time Penicillins Allergy Severe RASH Verified 04/16/18 14:43 prednisone Allergy Severe Rash Verified 04/16/18 14:43 Review of Systems Except as stated in HPI: all other systems reviewed are negative Constitutional Reports chills, Denies fever(s) and Reports weakness Eyes Denies blurry vision ENT Denies nasal congestion Cardiovascular Denies chest pain Respiratory Denies dyspnea Gastrointestinal Denies abdominal pain Genitourinary Denies flank pain Musculoskeletal Denies back pain Integumentary/Breasts Reports erythema and Reports skin pain Neurologic Denies headache(s) Psychiatric Denies anxiety Endocrine Reports fatigue [facility] Medical History Medical History COPD (chronic obstructive pulmonary disease) (Acute) Chronic pancreatitis (Acute) Cirrhosis (Acute) Hepatitis B (Acute) Hepatitis C (Acute) Herniated disc (Acute) Hx of tuberculosis (Acute) Rheumatoid arthritis (Acute) Sciatica (Acute) Surgical History Surgical History H/O chest tube placement (Acute) History of arthroplasty of right ankle (Acute) Family History Family History Other Dementia Social History Social History Substance History: No History of Abuse Second Hand Smoke Exposure: No Smoking Status: Current every day smoker Tobacco Type: Cigarettes How Often Do You Have a Drink Containing Alcohol: Monthly or less Immunization History Tetanus Immunization: <5 Years Hx Influenza Vaccine This Season: Yes Exam Narrative Exam Narrative: GENERAL: Disheveled SKIN: Focused skin assessment warm/dry. L forearm/hand/wrist with cellulitis that is almost circumferential. No crepitus nor bulla. HEAD: Atraumatic. Normocephalic. EYES: Pupils equal and round. No scleral icterus. No injection or drainage. ENT: No nasal bleeding or discharge. Mucous membranes pink and moist. NECK: Trachea midline. No JVD. CARDIOVASCULAR: Regular rate and rhythm. No murmur appreciated. RESPIRATORY: No accessory muscle use. Clear to auscultation. Breath sounds equal bilaterally. GASTROINTESTINAL: Abdomen soft, non-tender, nondistended. Hepatic and splenic margins not palpable. MUSCULOSKELETAL: No obvious deformities. No clubbing. No cyanosis. No edema. NEUROLOGICAL: Awake and alert. No obvious cranial nerve deficits. Motor grossly within normal limits. Normal speech. PSYCHIATRIC: Appropriate mood and affect; insight and judgment normal. Course Hospital Course: Patient is a 52-year-old male with a recent discharge from the hospital who presents with complaint of worsening cellulitis despite receiving 8 days of IV antibiotics last night. Labs have been ordered on arrival in addition to a second dose of clindamycin. Initial Documented Vital Signs Temperature 97.6 F 04/16/18 14:40 Pulse Rate 85 07/26/18 14:40 Respiratory Rate 16 04/16/18 14:40 Blood Pressure 145/84 H 04/16/18 14:40 Pulse Oximetry 98 04/16/18 14:40 Last Documented Vital Signs Temperature 97.6 F 04/16/18 14:40 Pulse Rate 85 04/16/18 14:40 Respiratory Rate 16 04/16/18 14:40 Blood Pressure 145/84 H 04/16/18 14:40 Pulse Oximetry 98 04/16/18 14:40 Medical Decision Making MDM Narrative Medical decision making narrative: Patient is a 52-year-old male who was recently discharged from hospital, who presents with complaint of a completely circumferential left forearm cellulitis. He was seen here last night where he was given a dose of clindamycin and discharged home with a prescription for the same. He states that he has no money and cannot afford any antibiotics even with coupons. He has been given a dose of clindamycin in the emergency department and he has been admitted to the hospital for IV antibiotics under Dr. Lisa Santos. Differential Diagnosis Differential Diagnosis: Differential diagnosis includes but is not limited to cellulitis, abscess, necrotizing fasciitis, thrombophlebitis, contusion. Medical Records Medical records reviewed: Yes I reviewed the patient's medical records. Lab Data Lab results reviewed: Yes I reviewed the patient's lab results. Lab results narrative: Labs unremarkable. Result diagrams: 04/16/18 15:55 04/16/18 15:55 Lab Results 04/16/18 04/16/18 Range/Units 15:55 15:55 WBC 5.8 (4.0-11.0) th/mm3 RBC 4.10 L (4.50-5.90) mil/mm3 Hgb 12.2 L (13.0-17.0) gm/dL Hct 37.5 L (39.0-51.0) % MCV 91.4 (80.0-100.0) fL MCH 29.8 (27.0-34.0) pg MCHC 32.6 (32.0-36.0) % RDW 19.0 H (11.6-17.2) % Plt Count 156 (150-450) th/mm3 MPV 8.7 (7.0-11.0) fL Sodium 136 (136-145) meq/L Potassium 4.0 (3.5-5.1) meq/L Chloride 100 (98-107) meq/L Carbon Dioxide 29.3 (21.0-32.0) meq/L Anion Gap 7 (5-15) meq/L BUN 7 (7-18) mg/dL Creatinine 0.63 (0.60-1.30) mg/dL Estimated GFR Greater than 89 (>89) mL/min Random Glucose 99 (74-106) mg/dL Calcium 9.1 (8.5-10.1) mg/dL Discharge Plan Discharge Condition Condition: Stable Discharge Details Diagnosis: Cellulitis Physicians Team ED Provider: Shana Rose Primary Care Provider: Primary Care Kareen Wilson Rxs /Orders / Referrals /Forms Prescriptions: No Action hydrocodone-acetaminophen 5-325 mg Tablet 1 tab PO Q6HR PRN (Reason: Pain 3 to 10) Qty: 28 RF: 0 alprazolam [Xanax] 0.5 mg Tablet 0.5 mg PO Q8H PRN (Reason: Anxiety) Qty: 10 RF: 0 pantoprazole 40 mg Tablet,Delayed Release (Dr/Ec) 40 mg PO DAILY Qty: 30 RF: 0 melatonin 5 mg Tablet 10 mg PO HS Qty: 60 RF: 0 clindamycin HCl 300 mg capsule 300 mg PO Q8H 10 Days Qty: 30 RF: 0 Status ED Status: With Doctor
[2018-04-16 16:10] LABS: Hematocrit 37.5 % (39.0-51.0); Hemoglobin 12.2 gm/dL (13.0-17.0); Mean Corpuscular HGB Conc 32.6 % (32.0-36.0); Mean Corpuscular Hemoglobin 29.8 pg (27.0-34.0); Mean Corpuscular Volume 91.4 fL (80.0-100.0); Mean Platelet Volume 8.7 fL (7.0-11.0); Platelet Count 156 th/mm3 (150-450); White Blood Count 5.8 th/mm3 (4.0-11.0)
[2018-04-16 16:17] LABS: Chloride 100 meq/L (98-107); Sodium 136 meq/L (136-145)
[2018-04-16 16:20] LABS: Calcium 9.1 mg/dL (8.5-10.1)
[2018-04-16 16:21] LABS: Anion Gap 7 meq/L (5-15); Blood Urea Nitrogen 7 mg/dL (7-18); Carbon Dioxide 29.3 meq/L (21.0-32.0); Glucose,Random 99 mg/dL (74-106)
[2018-04-16 16:24] LABS: Glomerular Filtration Rate Greater Than 89 mL/min (>89)
[2018-04-16] MEDS ORDERED: Bisacodyl 10 MG Supp RECTAL PRN (17:09)
[2018-04-16] MEDS ORDERED: ALPRAZolam 0.5 MG Tablet PO PRN (17:10)
[2018-04-16] MEDS ORDERED: Vancomycin Consult Pharmacy 1 EACH OTHER SCH (17:15)
[2018-04-16] MEDS ORDERED: Clindamycin 600 mg/NS Premix 600 MG/50 ML PIGGYBACK IV.SIG SCH (17:15)
--- NOTE | 2018-04-16 17:16 | P.HPIM ---
History of Present Illness Primary Care Physician: No Primary Care Physician Chief Complaint: Left arm pain History of Present Illness: Patient is a 52-year-old gentleman who was discharged from he did notice his left arm began to have erythema, edema and calor at the site of a IV which was placed in that arm. The pain has been severe and improved with hydrocodone which she has at home. He was recently admitted for pancreatitis related to alcohol and has been sober for the last 7 days. He did come to the emergency room yesterday and received an IV clindamycin dose but was unable to fill any further prescriptions. He did therefore come back today for further evaluation and treatment. The ER doctor is the same doctor who saw the patient recently and notes that the erythema and edema without treatment did indeed get worse. Patient is therefore been recommended for observation in the hospital for IV antibiotics - Diagnosis (1) Cellulitis Review of Systems All other systems reviewed negative except as stated in HPI Skin/Breast: Reports skin pain PMFSH - History History Provided By: Patient - Medical History Medical History: Medical History (Last Reviewed 04/16/18 @ 17:13 by Lisa Santos MD) COPD (chronic obstructive pulmonary disease) Chronic pancreatitis Cirrhosis Hepatitis B Hepatitis C Herniated disc Hx of tuberculosis Rheumatoid arthritis Sciatica - Surgical History Surgical History: Surgical History (Last Reviewed 04/16/18 @ 17:13 by Lisa Santos MD) H/O chest tube placement History of arthroplasty of right ankle - Family History Family History: Family History (Last Reviewed 04/16/18 @ 17:13 by Lisa Santos MD) Other Dementia - Tobacco History Second Hand Smoke Exposure: No Tobacco Use In Past 30 Days: No Smoking Status: Current every day smoker Tobacco Type: Cigarettes - Alcohol History How Often Do You Have a Drink Containing Alcohol: Monthly or less - Substance Use History Substance History: No History of Abuse - Immunization History Tetanus Immunization: <5 Years Hx Influenza Vaccine This Season: Yes Medications and Allergies Allergies Allergy/AdvReac Type Severity Reaction Status Date / Time Penicillins Allergy Severe RASH Verified 04/16/18 14:43 prednisone Allergy Severe Rash Verified 04/16/18 14:43 Exam Vital signs: Vital Signs 04/16/18 14:40 Temperature 97.6 F Pulse Rate 85 Respiratory Rate 16 Blood Pressure 145/84 H Pulse Oximetry 98 Intake & Output 04/15/18 04/16/18 04/16/18 18:59 06:59 18:59 Intake Total 50 / 50 Balance 50 / 50 Weight 81 kg Intake: IV 50 / 50 Cleocin 900 mg/NS Premix 900 mg 50 / 50 In 50 ml @ 100 mls/hr IV.SIG ONCE ONE Rx#:[id number] Narrative: GENERAL: Patient calm resting and without complaints SKIN: Warm and dry. No rashes or ecchymotic injuries EYES: Pupils equal and round. No scleral icterus. No injection or drainage. ENT: External ear exam normal. No acute nasal bleeding or discharge. Mucous membranes pink and moist. CARDIOVASCULAR: Regular rate and rhythm. No murmurs gallops or rubs appreciated RESPIRATORY: Good air flow and effort without accessory muscle use. Clear to auscultation. Breath sounds equal bilaterally. GASTROINTESTINAL: Abdomen soft, non-tender, nondistended. Hepatic and splenic margins not palpable. MUSCULOSKELETAL: Left arm erythema, edema and warmth in the forearm into the hand with no fluctuant masses noted. There is a tender area where an IV site was in the mid forearm. Other 3 extremities without clubbing, cyanosis, or edema. No obvious deformities. NEUROLOGICAL: Awake and alert. No obvious cranial nerve deficits. Motor grossly within normal limits. Five out of 5 muscle strength in the arms and legs. Normal speech. Results - Labs CBC & Chem 7: 04/16/18 15:55 04/16/18 15:55 Labs: Short CBC 04/16/18 Range/Units 15:55 WBC 5.8 (4.0-11.0) th/mm3 Hgb 12.2 L (13.0-17.0) gm/dL Hct 37.5 L (39.0-51.0) % Plt Count 156 (150-450) th/mm3 [facility] 04/16/18 15:55 Sodium 136 Potassium 4.0 Chloride 100 Carbon Dioxide 29.3 BUN 7 Creatinine 0.63 Calcium 9.1 Caprini VTE Risk Assessment Caprini VTE Risk Assessment: No/Low Risk (score <= 1) Caprini Risk Assessment Model: Point Value = 1 Point Value = 2 Point Value = 3 Point Value = 5 Age 41-60 Minor surgery BMI > 25 kg/m2 Swollen legs Varicose veins or History of unexplained or recurrent spontaneous Oral contraceptives or hormone replacement Sepsis (< 1 month) Serious lung disease, including pneumonia (< 1 month) Abnormal pulmonary function Acute myocardial infarction Congestive heart failure (< 1 month) History of inflammatory bowel disease Medical patient at bed rest Age 61-74 Arthroscopic surgery Major open surgery (> 45 min) Laparoscopic surgery (> 45 min) Malignancy Confined to bed (> 72 hours) Immobilizing plaster cast Central venous access Age >= 75 History of VTE Family history of VTE Factor V Leiden Prothrombin [id number] Lupus anticoagulant Anticardiolipin antibodies Elevated serum homocysteine Heparin-induced thrombocytopenia Other congenital or acquired thrombophilia Stroke (< 1 month) Elective arthroplasty Hip, pelvis, or leg fracture Acute spinal cord injury (< 1 month) Prophylaxis Regimen: Total Risk Factor Score Risk Level Prophylaxis Regimen 0-1 Low Early ambulation 2 Moderate Order ONE of the following: *Sequential Compression Device (SCD) *Heparin 5000 units SQ BID 3-4 Higher Order ONE of the following medications: *Heparin 5000 units SQ TID *Enoxaparin/Lovenox 40 mg SQ daily (WT < 150 kg, CrCl > 30 mL/min) *Enoxaparin/Lovenox 30 mg SQ daily (WT < 150 kg, CrCl > 10-29 mL/min) *Enoxaparin/Lovenox 30 mg SQ BID (WT < 150 kg, CrCl > 30 mL/min) AND/OR *Sequential Compression Device (SCD) 5 or more Highest Order ONE of the following medications: *Heparin 5000 units SQ TID (Preferred with Epidurals) *Enoxaparin/Lovenox 40 mg SQ daily (WT < 150 kg, CrCl > 30 mL/min) *Enoxaparin/Lovenox 30 mg SQ daily (WT < 150 kg, CrCl > 10-29 mL/min) *Enoxaparin/Lovenox 30 mg SQ BID (WT < 150 kg, CrCl > 30 mL/min) AND *Sequential Compression Device (SCD) Assessment and Plan - Assessment (1) Cellulitis Code(s): L03.90 - Cellulitis, unspecified Status: Acute Plan: Continue with IV clindamycin/vancomycin for now, follow-up clinically If no improvement will consider MRI rule out abscess. - Plan Discussed Condition With: LILIANA ZHANG (1) Cellulitis Qualifiers: Site of cellulitis: extremity Site of cellulitis of extremity: upper extremity Laterality: left Qualified Code(s): L03.114 - Cellulitis of left upper limb
[2018-04-16] MEDS ORDERED: Vancomycin Inj 1 GM/200 ML PIGGYBACK IV.SIG ONE (18:00)
[2018-04-16] MEDS ORDERED: Vancomycin Inj 1,000 MG in Sodium Chlor 0.9% Inj 250 ML IV.SIG ONE (20:00)
[2018-04-16] MEDS: Melatonin 5 MG Tablet PO SCH ×2 (20:50→22:53)
[2018-04-16] MEDS: Senna/Docusate Sodium 8.6/50 MG Tablet PO SCH (20:50)
[2018-04-16] MEDS: Clindamycin 600 mg/NS Premix 600 MG/50 ML PIGGYBACK IV.SIG SCH (22:56)
[2018-04-17] MEDS: Clindamycin 600 mg/NS Premix 600 MG/50 ML PIGGYBACK IV.SIG SCH ×2 (03:30→08:47)
[2018-04-17] MEDS ORDERED: Vancomycin Inj 1,500 MG in Sodium Chlor 0.9% Inj 500 ML IV.SIG SCH (06:00)
[2018-04-17] MEDS: Senna/Docusate Sodium 8.6/50 MG Tablet PO SCH (08:19)
--- NOTE | 2018-04-17 12:51 | P.PNIM ---
Subjective Interval history: Patient seen and evaluated today in follow-up for colitis which is grossly improved after antibiotics. No fevers overnight. Pain is is agreeable. Arrangements made with the assistance of case management Physical Exam Vital signs: Vital Signs 04/16/18 14:40 04/16/18 18:40 04/16/18 20:00 Temperature 97.6 F 97.1 F L 97.3 F L Pulse Rate 85 95 H 86 Respiratory Rate 16 20 20 Blood Pressure 145/84 H 129/80 Pulse Oximetry 98 95 99 04/17/18 00:00 04/17/18 08:00 Temperature 97.3 F L 97.7 F Pulse Rate 79 86 Respiratory Rate 20 16 Blood Pressure 120/76 133/89 Pulse Oximetry 96 97 Intake & Output 04/16/18 04/17/18 04/17/18 18:59 06:59 18:59 Intake Total 250 / 250 660 / 660 565 / 565 Balance 250 / 250 660 / 660 565 / 565 Weight 79.7 kg 80.6 kg Intake: IV 250 / 250 300 / 300 565 / 565 Cleocin 600 mg/NS Premix 600 mg 50 / 50 50 / 50 In 50 ml @ 100 mls/hr IV.SIG Q8H SOUMYA Rx#:[id number] Cleocin 900 mg/NS Premix 900 mg 50 / 50 In 50 ml @ 100 mls/hr IV.SIG ONCE ONE Rx#:[id number] Vancomycin Inj 1 gm In 200 ml @ 200 / 200 200 mls/hr IV.SIG ONCE ONE Rx# :[id number] Vancomycin Inj 1,000 MG In NS 250 / 250 Inj 250 ML @ 250 mls/hr IV.SIG ONCE ONE Rx#:[id number] Vancomycin Inj 1,500 MG In NS 515 / 515 Inj 500 ML @ 257.5 mls/hr IV. SIG Q12H SOUMYA Rx#:[id number] Oral 360 / 360 Other: # Voids 3 Weight On Admission 79.7 kg Narrative: GENERAL: Patient calm resting and without complaints SKIN: Warm and dry. No rashes or ecchymotic injuries EYES: Pupils equal and round. No scleral icterus. No injection or drainage. ENT: External ear exam normal. No acute nasal bleeding or discharge. Mucous membranes pink and moist. CARDIOVASCULAR: Regular rate and rhythm. No murmurs gallops or rubs appreciated RESPIRATORY: Good air flow and effort without accessory muscle use. Clear to auscultation. Breath sounds equal bilaterally. GASTROINTESTINAL: Abdomen soft, non-tender, nondistended. Hepatic and splenic margins not palpable. MUSCULOSKELETAL: Improved erythema and edema of the left arm, extremities without clubbing, cyanosis, or edema. No obvious deformities. NEUROLOGICAL: Awake and alert. No obvious cranial nerve deficits. Motor grossly within normal limits. Five out of 5 muscle strength in the arms and legs. Normal speech. Results - Labs CBC & Chem 7: 04/16/18 15:55 04/16/18 15:55 Laboratory Results - last 24 hr 04/16/18 04/16/18 15:55 15:55 WBC 5.8 RBC 4.10 L Hgb 12.2 L Hct 37.5 L MCV 91.4 MCH 29.8 MCHC 32.6 RDW 19.0 H Plt Count 156 MPV 8.7 Sodium 136 Potassium 4.0 Chloride 100 Carbon Dioxide 29.3 Anion Gap 7 BUN 7 Creatinine 0.63 Estimated GFR Greater than 89 Random Glucose 99 Calcium 9.1 Assessment and Plan - Assessment (1) Cellulitis Code(s): L03.90 - Cellulitis, unspecified Status: Acute Plan: Continue with p.o. clindamycin follow-up clinically Grossly improved Discharge home Activity unrestricted Diet regular (1) Cellulitis Qualifiers: Site of cellulitis: extremity Site of cellulitis of extremity: upper extremity Laterality: left Qualified Code(s): L03.114 - Cellulitis of left upper limb
[2018-04-17 13:42] VITALS: BP 136/89; PULSE 66; RESP 16; TEMP 96.7; O2SAT 98
[2018-04-18] MEDS ORDERED: Pharmacy Ordered Lab Info OTHER ONE (05:45)
== END 2018-04-17 14:07 | disposition home or self-care (01) ==
LOC: PHEFT 14:27 → PH3 14:27 → INTOOBSV 16:45 → PHEDA 16:45 → PH3 18:40
PROVIDERS: ADMIT Hospitalist; ATTEND Hospitalist

== ENCOUNTER 2018-05-15 11:52 | Inpatient (IN) ==
--- NOTE | 2018-05-15 12:46 | XR ---
EXAM DATE: 05/15/2018 12:33 PM EDT AGE/SEX: 52 years / Male INDICATIONS: Chest/epigastric pain. CLINICAL DATA: This is the patient's initial encounter. Patient reports that signs and symptoms have been present for 2 days and indicates a pain score of 8/10. MEDICAL/SURGICAL HISTORY: Pancreatitis. Rheumatoid arthritis. Cirrhosis. Hepatitis B & C. Tu berculosis. Sciatica . Right ankle arthroplasty. Chest tube. COMPARISON: [facility] – [place], CHEST 1V SINGLE AP, 03/26/2018. . FINDINGS: There are numerous nodules in the upper lungs bilaterally. These appear more prominent on the current exam. There also appear to be new nodules in the lower lobes. There are some linear densities seen j ust above the left hemidiaphragm likely related to atelectasis. A small amount of free air in this re gion cannot absolutely be excluded but is thought less likely. The heart size is normal. A significan t effusion is not seen. CONCLUSION: Numerous nodules in the upper lungs. These appear to progress since the prior exam. There also appear s to be a new nodules in the lower lobes. Linear density at the left base likely related to atelectasis. Electronically signed by: Wesly Magana MD 05/15/2018 12:45 PM EDT
[2018-05-15 12:49] LABS: Baso % (Auto) 0.8 % (0.0-2.0); Eos % (Auto) 1.2 % (0.0-4.0); Hematocrit 39.2 % (39.0-51.0); Hemoglobin 12.7 gm/dL (13.0-17.0); Lymph # (Auto) 0.9 th/mm3 (1.0-4.8); Lymph % (Auto) 33.3 % (9.0-44.0); Mean Corpuscular HGB Conc 32.4 % (32.0-36.0); Mean Corpuscular Hemoglobin 28.3 pg (27.0-34.0); Mean Corpuscular Volume 87.4 fL (80.0-100.0); Mean Platelet Volume 7.9 fL (7.0-11.0); Mono # (Auto) 0.2 th/mm3 (0.0-0.9); Mono % (Auto) 7.1 % (0.0-8.0); Neut # (Auto) 1.6 th/mm3 (1.8-7.7); Neut % (Auto) 57.6 % (16.0-70.0); Platelet Count 62 th/mm3 (150-450); Red Blood Count 4.48 mil/mm3 (4.50-5.90); Red Cell Distribution Width 16.6 % (11.6-17.2); White Blood Count 2.7 th/mm3 (4.0-11.0)
[2018-05-15 12:58] LABS: Lipase 176 U/L (73-393); Magnesium 1.7 mg/dL (1.5-2.5)
[2018-05-15 13:04] LABS: Creatine Kinase 110 U/L (39-308)
[2018-05-15 13:15] LABS: Alcohol 177 mg/dL (0-5)
[2018-05-15 13:17] LABS: Activated Partial Thrombo Time 26.1 sec (24.3-30.1); INR 1.1 Ratio; Prothrombin Time 11.6 sec (9.8-11.6)
[2018-05-15 13:19] LABS: Platelet Morphology Normal (Normal)
[2018-05-15 13:27] LABS: Creatine Kinase MB 1.8 ng/mL (0.5-3.6)
[2018-05-15] MEDS ORDERED: chlordiazePOXIDE 25 MG Capsule PO STA (13:39)
--- NOTE | 2018-05-15 15:32 | CT ---
EXAM DATE: 05/15/2018 3:08 PM EDT AGE/SEX: 52 years / Male INDICATIONS: Mass. Non radiating chest pain for one day. CLINICAL DATA: This is the patient's initial encounter. Patient reports that signs and symptoms have been present for 1 day and indicates a pain score of 5/10. MEDICAL/SURGICAL HISTORY: Chronic obstructive pulmonary disease. Hepatitis B. Hepatitis C. Cirrh osis, pancreatitis and history of tuberculosis. . Right ankle. RADIATION DOSE: 7.81 CTDI (mGy) COMPARISON: No prior exams available for comparison. TECHNIQUE: Multiple contiguous axial images were obtained through the chest during bolus infusion of 60 ml Omnipaque 350 (iohexol) nonionic water-soluble contrast as a single exam dose. Images were obtained in suspended respiration using multiple row detector helical technique. Using automated exp osure control and adjustment of the mA and/or kV according to patient size, radiation dose was kept a s low as reasonably achievable to obtain optimal diagnostic quality images. DICOM format image data is available electronically for review and comparison. FINDINGS: Consolidative airspace disease with calcification is seen in both apices. Scattered calcified and non calcified less than 1 cm nodular opacities are present in both lungs. There is no pleural effusion. Extensive coronary calcifications are noted. There is no pericardial effusion Marked fatty infiltration in the lung Adrenal glands appear normal. CONCLUSION: Calcified and noncalcified nodules scattered throughout both lungs with consolidative air space disease with calcification both apices suggesting mycobacterium infection. Neoplastic disease i s felt to be less likely. I have chest films for comparison which show some compression. I have no CT scan for direct compariso n. Electronically signed by: Mayco Brown MD 05/15/2018 3:31 PM EDT
--- NOTE | 2018-05-15 16:05 | ED ---
HPI General Chief complaint: Chest Pain Stated complaint: Chest Pain x This Am Source: patient Mode of arrival: ambulatory Limitations: no limitations History of Present Illness HPI narrative: Patient is a 52-year-old male, with history of chronic alcoholism , who comes in complaining of chest pain. She says the pain is on the left. He also complains of abdominal pain. He has history of chronic pancreatitis. He says he last drank yesterday. He denies any nausea or vomiting. He has been here multiple times this month for various reasons related to alcohol. He does say that he has been trying to get to [facility], but every time he goes there is no bed. He denies fever. He says he has had a cough for the past month with occasional bloody sputum. He also does report night sweats and weight loss. Severity is mild to moderate. Related Data Home Medications Medication Instructions Recorded Confirmed No Known Home Medications 05/11/18 05/15/18 Allergies Allergy/AdvReac Type Severity Reaction Status Date / Time Penicillins Allergy Severe RASH Verified 05/11/18 13:02 prednisone Allergy Severe Rash Verified 05/11/18 13:02 fluoxetine [From Prozac] Allergy Intermediate Hallucinati Verified 05/11/18 13: 02 ons Review of Systems ROS: all other systems reviewed are negative Constitutional Denies fever(s), Reports night sweats and Reports weight loss ENT Denies dizziness Cardiovascular Reports chest pain and Denies edema Respiratory Reports cough Gastrointestinal Reports abdominal pain, Denies nausea and Denies vomiting Musculoskeletal Denies myalgias and Denies arthralgias Integumentary/Breasts Denies lesions and Denies rash Neurologic Denies frequent falls and Denies focal weakness [facility] Medical History Medical History Chronic pancreatitis (Acute) Cirrhosis (Acute) Sciatica (Acute) Herniated disc (Acute) Hx of tuberculosis (Acute) Hepatitis C (Acute) Hepatitis B (Acute) Rheumatoid arthritis (Acute) COPD (chronic obstructive pulmonary disease) (Acute) Surgical History Surgical History History of arthroplasty of right ankle (Acute) H/O chest tube placement (Acute) Social History Social History Substance History: Past History Second Hand Smoke Exposure: Yes Smoking Status: Light tobacco smoker Tobacco Type: Cigarettes How Often Do You Have a Drink Containing Alcohol: 4 or more times a week Recent Travel in [facility] within the Last 8 Weeks: No Recent Out of Country Travel within the Last 8 Weeks: No Immunization History Tetanus Immunization: <5 Years Tetanus Immunization Year if Known: 2015 Hx Influenza Vaccine This Season: Yes Exam Narrative Exam Narrative: GENERAL: Awake and alert, in no acute distress. SKIN: Focused skin assessment warm/dry. No wounds or signs of infection. HEAD: Atraumatic. Normocephalic. EYES: Pupils equal and round. No scleral icterus. ENT: Mucous membranes pink and moist. NECK: Trachea midline. No JVD. CARDIOVASCULAR: Regular rate and rhythm. No murmur appreciated. RESPIRATORY: No accessory muscle use. Clear to auscultation. Breath sounds equal bilaterally. GASTROINTESTINAL: Abdomen soft, non-tender, nondistended. MUSCULOSKELETAL: No obvious deformities. No clubbing. No cyanosis. No edema. NEUROLOGICAL: Awake and alert. No obvious cranial nerve deficits. Motor grossly within normal limits. Normal speech. PSYCHIATRIC: Appropriate mood and affect; insight and judgment normal. Course Initial Documented Vital Signs Temperature 97.8 F 05/15/18 12:06 Pulse Rate 95 H 05/15/18 12:06 Respiratory Rate 18 05/15/18 12:06 Blood Pressure 159/102 H 05/15/18 12:06 Pulse Oximetry 98 05/15/18 12:06 Last Documented Vital Signs Temperature 97.8 F 05/15/18 12:06 Pulse Rate 76 05/15/18 13:46 Respiratory Rate 16 05/15/18 13:46 Blood Pressure 152/100 H 05/15/18 13:46 Pulse Oximetry 97 05/15/18 17:22 Medical Decision Making [facility] Narrative Medical decision making narrative: Patient is a 52-year-old male comes in complaining of chest pain and abdominal pain. IV established, labs sent. Patient connected to the environmental monitoring technician. Labs show no acute abnormalities, troponin is negative. Chest x-ray was concerning for several nodules. CT of the chest performed shows apical nodules and consolidations concerning for Mycobacterium. On further questioning, patient states that he has had tuberculosis about 12 years ago and that for the past month he has had a cough productive of bloody sputum with considerable weight loss and night sweats. Patient given Librium complaint of withdrawal symptoms. Given Rocephin and azithromycin. He will be admitted for further management. Medical Screen Exam Complete: Yes Emergency Medical Condition: Yes Differential Diagnosis Differential Diagnosis: Pneumonia versus ACS versus TB versus withdrawal versus pancreatitis Medical Records Medical records reviewed: Yes I reviewed the patient's medical records. Lab Data Lab results reviewed: Yes I reviewed the patient's lab results. Result diagrams: 05/15/18 12:40 Lab Results 05/15/18 05/15/18 05/15/18 Range/Units 12:40 12:40 12:40 CBC w Diff Slide review pending WBC 2.7 L (4.0-11.0) th/mm3 RBC 4.48 L (4.50-5.90) mil/mm3 Hgb 12.7 L (13.0-17.0) gm/dL Hct 39.2 (39.0-51.0) % MCV 87.4 (80.0-100.0) fL MCH 28.3 (27.0-34.0) pg MCHC 32.4 (32.0-36.0) % RDW 16.6 (11.6-17.2) % Plt Count 62 L D (150-450) th/mm3 MPV 7.9 (7.0-11.0) fL Neut % (Auto) 57.6 (16.0-70.0) % Lymph % (Auto) 33.3 (9.0-44.0) % Wells % (Auto) 7.1 (0.0-8.0) % Eos % (Auto) 1.2 (0.0-4.0) % Baso % (Auto) 0.8 (0.0-2.0) % Neut # (Auto) 1.6 L (1.8-7.7) th/mm3 Lymph # (Auto) 0.9 L (1.0-4.8) th/mm3 Wells # (Auto) 0.2 (0.0-0.9) th/mm3 Eos # (Auto) 0.0 (0.0-0.4) th/mm3 Baso # (Auto) 0.0 (0.0-0.2) th/mm3 WBC Differential . Diff Scan Auto diff confirmed Differential Comment . Platelet Estimate Low L (Normal) Platelet Morphology Normal (Normal) PT 11.6 (9.8-11.6) sec INR 1.1 Ratio APTT 26.1 (24.3-30.1) sec Magnesium 1.7 (1.5-2.5) mg/dL Total Creatine Kinase 110 (39-308) U/L CK-MB (CK-2) 1.8 (0.5-3.6) ng/mL Troponin I Less than 0.02 L (0.02-0.05) ng/mL Lipase 176 (73-393) U/L Serum Alcohol 177 H (0-5) mg/dL Imaging Data Radiologist's impression: Chest X-Ray 05/15/18 12:15 CONCLUSION: Numerous nodules in the upper lungs. These appear to progress since the prior exam. There also appears to be a new nodules in the lower lobes. Linear density at the left base likely related to atelectasis. Chest CT 05/15/18 13:32 CONCLUSION: Calcified and noncalcified nodules scattered throughout both lungs with consolidative airspace disease with calcification both apices suggesting mycobacterium infection. Neoplastic disease is felt to be less likely. I have chest films for comparison which show some compression. I have no CT scan for direct comparison. ECG Data EKG Prior to Arrival: No Attestation: I personally reviewed and interpreted this ECG as follows: Interpretation: ECG shows normal sinus rhythm at a rate of 92, no ST elevation or depression, normal intervals Discharge Plan Discharge Disposition Patient Disposition: 30 Still Patient Discharge Condition Condition: Stable Discharge Details Diagnosis: Pneumonia Physicians Team ED Provider: Britt Coronado Primary Care Provider: Primary Care Katie,Kareen Attending Provider: Michel Ferraro Other Providers: Adelita Hodge ; Jonas Ash Status ED Status: Admitted Patient
[2018-05-15] MEDS ORDERED: Azithromycin Inj 500 MG in Sodium Chlor 0.9% Inj 250 ML IV.SIG ONE (16:06)
[2018-05-15] MEDS ORDERED: Naloxone Inj 0.4 MG/ML Vial IV.PUSH PRN (16:38)
[2018-05-15] MEDS ORDERED: Acetaminophen 325 MG Tablet PO PRN (16:38)
[2018-05-15] MEDS ORDERED: Benzonatate 100 MG Capsule PO PRN (16:38)
[2018-05-15] MEDS ORDERED: Haloperidol Inj 5 MG/ML Ampul IV.PUSH PRN (16:40)
[2018-05-15] MEDS ORDERED: Bisacodyl 10 MG Supp RECTAL PRN (16:48)
--- NOTE | 2018-05-15 17:02 | P.HP ---
History of Present Illness Primary Care Physician: No Primary Care Physician Chief Complaint: Chest pain History of Present Illness: This is a 52-year-old male with history of chronic alcoholism, tobacco abuse, cirrhosis, chronic pancreatitis, hepatitis B and C, alcohol withdrawal seizures , bleeding ulcers, hypertension and rheumatoid arthritis. Family history of coronary artery disease. Patient presents to the emergency department complaining of chest pain for 1 week. It is constant sharp pleuritic right- sided pain worse with coughing without radiation associated with shortness of breath. He also reports of productive cough with reddish color, night sweats anorexia and weight loss of 30 pounds in the past month patient has history of tuberculosis over 10 years ago treated for 6 months. He denies sick contacts but lives with his mother and stepfather. Chest CT shows calcified and noncalcified nodules scattered throughout both lungs with consolidative airspace disease with calcification both bases suggesting mycobacterial infection. Patient has been started on IV Rocephin and Zithromax and recommended admission for further workup. All other systems reviewed negative Inpatient Certification: I certify that the inpatient services were ordered in accordance with Medicare regulations governing the order. This includes certification that hospital inpatient services are reasonable and necessary and in the case of services not specified as inpatient-only under 42 CFR 419.22(n), that they are appropriately provided as inpatient services in accordance to with the 2-midnight benchmark under 43 CFR 412.3(e) Estimated Total Length of Stay (Days): 2 Plans for Post Hospital Care: Not yet determined Review of Systems All other systems reviewed negative except as stated in HPI PMFSH - History History Provided By: Patient - Medical History Medical History: Medical History (Last Reviewed 05/15/18 @ 12:07 by Buddy Santos RN) Chronic pancreatitis (Acute) Cirrhosis (Acute) Sciatica (Acute) Herniated disc (Acute) Hx of tuberculosis (Acute) Hepatitis C (Acute) Hepatitis B (Acute) Rheumatoid arthritis (Acute) COPD (chronic obstructive pulmonary disease) - Surgical History Surgical History: Surgical History (Last Reviewed 05/15/18 @ 12:07 by Buddy Santos RN) History of arthroplasty of right ankle (Acute) H/O chest tube placement (Acute) - Family History Family History: Family History (Last Reviewed 04/29/18 @ 18:28 by Britt Coronado MD) Other Dementia - Tobacco History Second Hand Smoke Exposure: Yes Tobacco Use In Past 30 Days: Yes Smoking Status: Light tobacco smoker Tobacco Type: Cigarettes - Alcohol History How Often Do You Have a Drink Containing Alcohol: 4 or more times a week - Substance Use History Substance History: Past History - Travel History Recent Travel in the [place] Within the Last 8 Weeks: No Recent Travel Out of the Country Within the Last 8 Weeks: No - Immunization History Tetanus Immunization: <5 Years Tetanus Immunization Year if Known: 2015 Hx Influenza Vaccine This Season: Yes Medications and Allergies Active Medications: Active Medications Azithromycin 500 mg/ Sodium (Chloride) 250 mls @ 250 mls/hr IV.SIG ONCE ONE Stop: 05/15/18 17:05 Sodium Chloride (Ns Flush) 2 ml IV.FLUSH UNSCH PRN PRN Reason: FLUSH AFTER USING IV ACCESS Allergies Allergy/AdvReac Type Severity Reaction Status Date / Time Penicillins Allergy Severe RASH Verified 05/11/18 13:02 prednisone Allergy Severe Rash Verified 05/11/18 13:02 fluoxetine [From Prozac] Allergy Intermediate Hallucinati Verified 05/11/18 13: 02 ons Home Medications Medication Instructions Recorded Confirmed Type No Known Home Medications 05/11/18 05/15/18 History Exam Vital signs: Vital Signs 05/15/18 12:06 05/15/18 12:15 05/15/18 13:46 Temperature 97.8 F Pulse Rate 95 H 76 Respiratory Rate 18 16 Blood Pressure 159/102 H 152/100 H Pulse Oximetry 98 91 L 97 Intake & Output 05/14/18 05/15/18 05/15/18 18:59 06:59 18:59 Weight 80 kg Narrative: GENERAL: Well-developed, well-nourished in no distress SKIN: Warm and dry. HEAD: Atraumatic. Normocephalic. EYES: Pupils equal and round. No scleral icterus. No injection or drainage. ENT: No nasal bleeding or discharge. Mucous membranes pink and moist. NECK: Trachea midline. No JVD. CARDIOVASCULAR: Regular rate and rhythm. RESPIRATORY: No accessory muscle use. Clear to auscultation. Decreased breath sounds equal bilaterally. GASTROINTESTINAL: Abdomen soft, non-tender, nondistended. MUSCULOSKELETAL: Extremities without clubbing, cyanosis, or edema. No obvious deformities. NEUROLOGICAL: Awake and alert. No obvious cranial nerve deficits. Motor grossly within normal limits. Five out of 5 muscle strength in the arms and legs. Normal speech. Tremors noted PSYCHIATRIC: Appropriate mood and affect; insight and judgment normal. Results - Labs CBC & Chem 7: 05/15/18 12:40 Labs: Laboratory Results - last 24 hr 05/15/18 05/15/18 05/15/18 12:40 12:40 12:40 CBC w Diff Slide review pending WBC 2.7 L RBC 4.48 L Hgb 12.7 L Hct 39.2 MCV 87.4 MCH 28.3 MCHC 32.4 RDW 16.6 Plt Count 62 L D MPV 7.9 Neut % (Auto) 57.6 Lymph % (Auto) 33.3 [place] % (Auto) 7.1 Eos % (Auto) 1.2 Baso % (Auto) 0.8 Neut # (Auto) 1.6 L Lymph # (Auto) 0.9 L [place] # (Auto) 0.2 Eos # (Auto) 0.0 Baso # (Auto) 0.0 WBC Differential . Diff Scan Auto diff confirmed Differential Comment . Platelet Estimate Low L Platelet Morphology Normal PT 11.6 INR 1.1 APTT 26.1 Magnesium 1.7 Total Creatine Kinase 110 CK-MB (CK-2) 1.8 Troponin I Less than 0.02 L Lipase 176 Serum Alcohol 177 H - Imaging Impressions Chest X-Ray 05/15/18 12:15 CONCLUSION: Numerous nodules in the upper lungs. These appear to progress since the prior exam. There also appears to be a new nodules in the lower lobes. Linear density at the left base likely related to atelectasis. Chest CT 05/15/18 13:32 CONCLUSION: Calcified and noncalcified nodules scattered throughout both lungs with consolidative airspace disease with calcification both apices suggesting mycobacterium infection. Neoplastic disease is felt to be less likely. I have chest films for comparison which show some compression. I have no CT scan for direct comparison. Caprini VTE Risk Assessment Caprini VTE Risk Assessment: Moderate/High Risk (score >= 2) Caprini Risk Assessment Model: Point Value = 1 Point Value = 2 Point Value = 3 Point Value = 5 Age 41-60 Minor surgery BMI > 25 kg/m2 Swollen legs Varicose veins or History of unexplained or recurrent spontaneous Oral contraceptives or hormone replacement Sepsis (< 1 month) Serious lung disease, including pneumonia (< 1 month) Abnormal pulmonary function Acute myocardial infarction Congestive heart failure (< 1 month) History of inflammatory bowel disease Medical patient at bed rest Age 61-74 Arthroscopic surgery Major open surgery (> 45 min) Laparoscopic surgery (> 45 min) Malignancy Confined to bed (> 72 hours) Immobilizing plaster cast Central venous access Age >= 75 History of VTE Family history of VTE Factor V Leiden Prothrombin [id number] Lupus anticoagulant Anticardiolipin antibodies Elevated serum homocysteine Heparin-induced thrombocytopenia Other congenital or acquired thrombophilia Stroke (< 1 month) Elective arthroplasty Hip, pelvis, or leg fracture Acute spinal cord injury (< 1 month) Prophylaxis Regimen: Total Risk Factor Score Risk Level Prophylaxis Regimen 0-1 Low Early ambulation 2 Moderate Order ONE of the following: *Sequential Compression Device (SCD) *Heparin 5000 units SQ BID 3-4 Higher Order ONE of the following medications: *Heparin 5000 units SQ TID *Enoxaparin/Lovenox 40 mg SQ daily (WT < 150 kg, CrCl > 30 mL/min) *Enoxaparin/Lovenox 30 mg SQ daily (WT < 150 kg, CrCl > 10-29 mL/min) *Enoxaparin/Lovenox 30 mg SQ BID (WT < 150 kg, CrCl > 30 mL/min) AND/OR *Sequential Compression Device (SCD) 5 or more Highest Order ONE of the following medications: *Heparin 5000 units SQ TID (Preferred with Epidurals) *Enoxaparin/Lovenox 40 mg SQ daily (WT < 150 kg, CrCl > 30 mL/min) *Enoxaparin/Lovenox 30 mg SQ daily (WT < 150 kg, CrCl > 10-29 mL/min) *Enoxaparin/Lovenox 30 mg SQ BID (WT < 150 kg, CrCl > 30 mL/min) AND *Sequential Compression Device (SCD) Assessment and Plan - Plan This is a 52-year-old male with history of chronic alcoholism, tobacco abuse, cirrhosis, chronic pancreatitis, hepatitis B and C, alcohol withdrawal seizures , bleeding ulcers, hypertension and rheumatoid arthritis. He presents to the emergency department complaining of chest pain, productive cough with reddish color, night sweats anorexia and weight loss of 30 pounds with history of tuberculosis. Chest CT shows calcified and noncalcified nodules scattered throughout both lungs with consolidative airspace disease with calcification both bases suggesting mycobacterial infection. Tuberculosis suspect. Patient will be admitted for further workup. Obtain QuantiFERON, AFB sputum and consult pulmonary and infectious disease. Continue IV Rocephin and Zithromax and obtain sputum culture and blood cultures. Patient will be in isolation. If confirmed active pulmonary tuberculosis, his close contacts need to be evaluated Atypical chest pain likely secondary to lung infection. Initial CK and troponin unremarkable. EKG showing sinus rhythm with no ST elevation tracing interpreted by me. Negative stress test in April 2017. Pain management with Lortab and IV morphine counseled regarding narcotics Leukopenia and thrombocytopenia likely secondary to infection, chronic alcoholism, cirrhosis, hepatitis B and C. Will monitor Alcohol abuse. Counseled. Monitor for alcohol withdrawal. CIWA protocol. DVT prophylaxis with SCD and early ambulation GI prophylaxis with PPI Discharge Planning: Home when ruled out for TB
[2018-05-15] MEDS: Sod Chloride 0.9% Inj 1,000 ML IV.CONT SCH (18:05)
[2018-05-15 18:37] LABS: Chloride 99 meq/L (98-107); Potassium 3.8 meq/L (3.5-5.1); Sodium 134 meq/L (136-145)
[2018-05-15 18:40] LABS: Calcium 8.4 mg/dL (8.5-10.1)
[2018-05-15 18:41] LABS: Albumin 3.7 g/dL (3.4-5.0); Anion Gap 10 meq/L (5-15); Blood Urea Nitrogen 6 mg/dL (7-18); Carbon Dioxide 25.3 meq/L (21.0-32.0); Glucose,Random 91 mg/dL (74-106)
[2018-05-15 18:44] LABS: Alanine Aminotransferase 114 U/L (12-78); Aspartate Aminotransferase 474 U/L (15-37); Glomerular Filtration Rate Greater Than 89 mL/min (>89)
[2018-05-15 18:46] LABS: Total Protein 7.8 g/dL (6.4-8.2)
[2018-05-15 18:47] LABS: Alkaline Phosphatase 139 U/L (45-117)
[2018-05-15] MEDS: Morphine Inj 4 MG/ML Vial IV.PUSH PRN (19:46)
[2018-05-15] MEDS: Senna/Docusate Sodium 8.6/50 MG Tablet PO SCH (21:26)
[2018-05-15] MEDS: chlordiazePOXIDE 25 MG Capsule PO SCH (22:10)
[2018-05-15] MEDS: guaiFENesin 600 MG ER Tablet PO SCH (22:10)
[2018-05-16] MEDS: Morphine Inj 4 MG/ML Vial IV.PUSH PRN ×4 (01:05→20:37)
[2018-05-16] MEDS: chlordiazePOXIDE 25 MG Capsule PO SCH ×3 (04:54→20:37)
[2018-05-16] MEDS: Sod Chloride 0.9% Inj 1,000 ML IV.CONT SCH (04:54)
[2018-05-16 07:40] LABS: Chloride 102 meq/L (98-107); Potassium 3.2 meq/L (3.5-5.1); Sodium 140 meq/L (136-145)
[2018-05-16 07:45] LABS: Baso # (Auto) 0.1 th/mm3 (0.0-0.2); Baso % (Auto) 3.7 % (0.0-2.0); Eos # (Auto) 0.1 th/mm3 (0.0-0.4); Eos % (Auto) 3.2 % (0.0-4.0); Hematocrit 39.2 % (39.0-51.0); Hemoglobin 13.1 gm/dL (13.0-17.0); Lymph % (Auto) 33.9 % (9.0-44.0); Mean Corpuscular HGB Conc 33.4 % (32.0-36.0); Mean Corpuscular Hemoglobin 29.6 pg (27.0-34.0); Mean Corpuscular Volume 88.6 fL (80.0-100.0); Mono # (Auto) 0.2 th/mm3 (0.0-0.9); Mono % (Auto) 8.3 % (0.0-8.0); Neut # (Auto) 1.5 th/mm3 (1.8-7.7); Neut % (Auto) 50.9 % (16.0-70.0); Platelet Count 47 th/mm3 (150-450); Red Blood Count 4.43 mil/mm3 (4.50-5.90); Red Cell Distribution Width 16.1 % (11.6-17.2); White Blood Count 2.9 th/mm3 (4.0-11.0)
[2018-05-16 07:47] LABS: Anion Gap 6 meq/L (5-15); Blood Urea Nitrogen 7 mg/dL (7-18); Calcium 8.2 mg/dL (8.5-10.1); Carbon Dioxide 32.2 meq/L (21.0-32.0); Glucose,Random 106 mg/dL (74-106)
[2018-05-16 07:51] LABS: Glomerular Filtration Rate Greater Than 89 mL/min (>89)
[2018-05-16 08:20] LABS: Platelet Morphology Normal (Normal)
[2018-05-16] MEDS: Multivitamin/Minerals Therapeutic Tablet PO SCH (09:05)
[2018-05-16] MEDS: guaiFENesin 600 MG ER Tablet PO SCH ×2 (09:05→20:36)
[2018-05-16] MEDS: Folic Acid 1 MG Tablet PO SCH (09:05)
[2018-05-16] MEDS: Senna/Docusate Sodium 8.6/50 MG Tablet PO SCH ×2 (09:06→20:37)
--- NOTE | 2018-05-16 11:57 | P.PN ---
Subjective Interval history: Follow-up pneumonia versus TB. No new complaints denies hallucinations. Discussed with ID will cancel consult since cultures are still pending Physical Exam Vital signs: Vital Signs 05/15/18 12:06 05/15/18 12:15 05/15/18 13:46 Temperature 97.8 F Pulse Rate 95 H 76 Respiratory Rate 18 16 Blood Pressure 159/102 H 152/100 H Pulse Oximetry 98 91 L 97 05/15/18 17:22 05/15/18 19:15 05/15/18 20:00 Temperature 98.1 F Pulse Rate 97 H 94 H Respiratory Rate 20 20 Blood Pressure 170/104 H Pulse Oximetry 97 98 98 05/16/18 00:00 05/16/18 04:00 05/16/18 08:00 Temperature 97.5 F L 96.9 F L 98.8 F Pulse Rate 80 75 84 Respiratory Rate 20 20 17 Blood Pressure 141/93 H 145/95 H 153/98 H Pulse Oximetry 94 L 96 94 L 05/16/18 08:54 Temperature Pulse Rate Respiratory Rate Blood Pressure Pulse Oximetry 94 L Intake & Output 05/15/18 05/16/18 05/16/18 18:59 06:59 18:59 Intake Total 240 / 240 2070 / 2070 Output Total 600 / 600 Balance 240 / 240 1470 / 1470 Weight 80 kg 77.8 kg Intake: IV 1350 / 1350 NS Inj 1,000 ML @ 80 mls/hr IV. 1000 / 1000 CONT .[id number] SOUMYA Rx#: [id number] Azithromycin Inj 500 MG In NS 250 / 250 Inj 250 ML @ 250 mls/hr IV.SIG ONCE ONE Rx#:[id number] Rocephin Inj 1,000 MG In NS Inj 100 / 100 100 ML @ 200 mls/hr IV.SIG ONCE ONE Rx#:[id number] Oral 240 / 240 720 / 720 Output: Urine 600 / 600 Other: # Urine Diapers 3 Weight On Admission 77.8 kg Narrative: GENERAL: Well-developed, well-nourished in no distress SKIN: Warm and dry. CARDIOVASCULAR: Regular rate and rhythm. RESPIRATORY: No accessory muscle use. Clear to auscultation. Decreased breath sounds equal bilaterally. GASTROINTESTINAL: Abdomen soft, non-tender, nondistended. MUSCULOSKELETAL: Extremities without clubbing, cyanosis, or edema. No obvious deformities. NEUROLOGICAL: Awake and alert. No obvious cranial nerve deficits. Motor grossly within normal limits. Five out of 5 muscle strength in the arms and legs. Normal speech. Tremors noted PSYCHIATRIC: Appropriate mood and affect; insight and judgment normal. Results - Labs CBC & Chem 7: 05/16/18 07:02 05/16/18 07:02 Laboratory Results - last 24 hr 05/15/18 05/15/18 05/15/18 12:40 12:40 12:40 CBC w Diff Slide review pending WBC 2.7 L RBC 4.48 L Hgb 12.7 L Hct 39.2 MCV 87.4 MCH 28.3 MCHC 32.4 RDW 16.6 Plt Count 62 L D MPV 7.9 Neut % (Auto) 57.6 Lymph % (Auto) 33.3 [place] % (Auto) 7.1 Eos % (Auto) 1.2 Baso % (Auto) 0.8 Neut # (Auto) 1.6 L Lymph # (Auto) 0.9 L [place] # (Auto) 0.2 Eos # (Auto) 0.0 Baso # (Auto) 0.0 WBC Differential . Diff Scan Auto diff confirmed Differential Comment . Platelet Estimate Low L Platelet Morphology Normal PT 11.6 INR 1.1 APTT 26.1 Sodium Potassium Chloride Carbon Dioxide Anion Gap BUN Creatinine Estimated GFR Random Glucose Calcium Magnesium 1.7 Total Bilirubin AST ALT Alkaline Phosphatase Total Creatine Kinase 110 CK-MB (CK-2) 1.8 Troponin I Less than 0.02 L Total Protein Albumin Lipase 176 Serum Alcohol 177 H 05/15/18 05/16/18 05/16/18 18:10 07:02 07:02 CBC w Diff Slide review pending WBC 2.9 L RBC 4.43 L Hgb 13.1 Hct 39.2 MCV 88.6 MCH 29.6 MCHC 33.4 RDW 16.1 Plt Count 47 L MPV 8.0 Neut % (Auto) 50.9 Lymph % (Auto) 33.9 [place] % (Auto) 8.3 H Eos % (Auto) 3.2 Baso % (Auto) 3.7 H Neut # (Auto) 1.5 L Lymph # (Auto) 1.0 [place] # (Auto) 0.2 Eos # (Auto) 0.1 Baso # (Auto) 0.1 WBC Differential . Diff Scan Auto diff confirmed Differential Comment . Platelet Estimate Low L Platelet Morphology Normal PT INR APTT Sodium 134 L 140 Potassium 3.8 3.2 L Chloride 99 102 Carbon Dioxide 25.3 32.2 H Anion Gap 10 6 BUN 6 L 7 Creatinine 0.58 L 0.57 L Estimated GFR Greater than 89 Greater than 89 Random Glucose 91 106 Calcium 8.4 L 8.2 L Magnesium Total Bilirubin 1.3 H AST 474 H ALT 114 H Alkaline Phosphatase 139 H Total Creatine Kinase CK-MB (CK-2) Troponin I Total Protein 7.8 Albumin 3.7 Lipase Serum Alcohol Microbiology 05/15/18 22:00 Sputum - Expectorated Sputum Gram Stain - Final - Imaging Impressions ITS Impressions Chest X-Ray 05/15/18 12:15 CONCLUSION: Numerous nodules in the upper lungs. These appear to progress since the prior exam. There also appears to be a new nodules in the lower lobes. Linear density at the left base likely related to atelectasis. Chest CT 05/15/18 13:32 CONCLUSION: Calcified and noncalcified nodules scattered throughout both lungs with consolidative airspace disease with calcification both apices suggesting mycobacterium infection. Neoplastic disease is felt to be less likely. I have chest films for comparison which show some compression. I have no CT scan for direct comparison. - Procedures None Assessment and Plan - Plan This is a 52-year-old male with history of chronic alcoholism, tobacco abuse, cirrhosis, chronic pancreatitis, hepatitis B and C, alcohol withdrawal seizures , bleeding ulcers, hypertension and rheumatoid arthritis. He presents to the emergency department complaining of chest pain, productive cough with reddish color, night sweats anorexia and weight loss of 30 pounds with history of tuberculosis. Chest CT shows calcified and noncalcified nodules scattered throughout both lungs with consolidative airspace disease with calcification both bases suggesting mycobacterial infection. HAP. Tuberculosis suspect. Stable f/u QuantiFERON, AFB sputum and culture. Consult pulmonary may need bronchoscopy. Cancel infectious disease for now since cultures are not back and empiric tx for TB not recommended. Continue IV Zithromax and switched to IV aztreonam history of penicillin allergy follow-up sputum culture and blood cultures. Patient will be in isolation. If confirmed active pulmonary tuberculosis, his close contacts need to be evaluated Atypical chest pain likely secondary to lung infection. CK and troponin unremarkable. EKG showing sinus rhythm with no ST elevation tracing interpreted by me. Negative stress test in April 2017. Pain management with Lortab and IV morphine counseled regarding narcotics Leukopenia and thrombocytopenia likely secondary to infection, chronic alcoholism, cirrhosis, hepatitis B and C. Will monitor Alcohol abuse history of alcohol withdrawal seizures. Counseled. Monitor for alcohol withdrawal. WA protocol. Continue Librium DVT prophylaxis with SCD and early ambulation. Hold pharmacological prophylaxis secondary to thrombocytopenia GI prophylaxis with PPI Discharge Planning: Home when ruled out for TB
[2018-05-16] MEDS: Aztreonam Inj 2 GM in Sodium Chloride 0.9% Inj 100 ML IV.SIG SCH ×2 (12:25→20:36)
[2018-05-16] MEDS: LORazepam 1 MG Tablet PO PRN ×3 (12:39→23:15)
--- NOTE | 2018-05-16 12:45 | ECG ---
Date Performed: 05/15/2018 Time Performed: 11:57:44 PTAGE: 52 years EKG: Sinus rhythm NORMAL ECG INTERPRETATION BASED ON A DEFAULT AGE OF 40 YEARS PREVIOUS TRACING : 04/09/2018 12.38 Since the previous tracing, no significant change not ed DOCTOR: Elver Machuca Interpretating Date/Time 05/16/2018 12:44:09
[2018-05-16] MEDS: Azithromycin Inj 500 MG in Sodium Chlor 0.9% Inj 250 ML IV.SIG SCH ×2 (14:41→16:24)
--- NOTE | 2018-05-16 19:41 | MB ---
cc: Neisha Modi MD DATE: 05/16/2018 REASON FOR CONSULTATION: Abnormal CT chest. HISTORY OF PRESENT ILLNESS: The patient is a 52-year-old male with a past medical history of TB 10 years ago, treated for 6 months in [facility], cirrhosis of liver secondary to ETOH abuse, chronic pancreatitis, hepatitis B and C, hypertension, and rheumatoid arthritis. He was admitted to the hospitalist service for possible TB. He reported a productive cough with yellow phlegm and sometimes blood-tinged sputum in addition to a poor appetite and 30 pounds weight loss in the last 35 days. The patient also reports diaphoresis at night. He denies any fever or chills. The patient lives with his mother and stepfather who all received TB prophylaxis at that time he was treated. On arrival, he had a chest x-ray which showed numerous nodules in the upper lungs and new nodules in lower lobes. Subsequently, he underwent CT scan of the chest which showed calcified and noncalcified nodules scattered throughout both lungs with consolidative airspace disease. The patient was started on broad spectrum antibiotics in the form of aztreonam and azithromycin. Pulmonary medicine was consulted for abnormal CT chest and to rule out TB. His QuantiFERON test is pending. PAST MEDICAL HISTORY: Significant for: 1. Pulmonary TB, treated for 6 months. 2. Chronic pancreatitis. 3. Cirrhosis of the liver. 4. Rheumatoid arthritis. 5. History of hepatitis B and C. 6. COPD. PAST SURGICAL HISTORY: 1. Previous arthroplasty of the right ankle. 2. Previous history of chest tube placement. FAMILY HISTORY: Parents and sister received TB prophylaxis. SOCIAL HISTORY: The patient is an active smoker. Currently, he smokes 5 cigarettes a day and used to smoke up to 2 packs per day for 30 years. In addition, he drinks vodka on a daily basis. He denies any drug use. ALLERGIES: 1. PENICILLIN. 2. PREDNISONE. 3. FLUOXETINE. CURRENT MEDICATIONS: Include: 1. Azithromycin. 2. Aztreonam. 3. Folic acid. 2. Multivitamins. 3. Protonix. 4. Thiamine. REVIEW OF SYSTEMS: As per HPI. The rest of review of systems unremarkable. PHYSICAL EXAMINATION: GENERAL: A 52-year-old male lying in bed, in no acute respiratory distress. VITAL SIGNS: Temperature 98.0, pulse 85, respiratory rate 16, blood pressure 144/86, saturation of 94% to 95% on room air. HEENT: Atraumatic, normocephalic. Pupils are equal, round, reactive to light and accommodation. Extraocular muscles intact. Conjunctivae pink. Nonicteric sclerae. Oral mucosa within normal. NECK: Supple. No JVD, adenopathy or thyromegaly. Trachea in the midline. CARDIOVASCULAR: Regular rate and rhythm. Normal S1, S2. No murmurs, rubs or gallops noted. PULMONARY: Bilateral equal air entry. No rales or wheezing. ABDOMEN: Soft, nontender. No distention. Positive bowel sounds. EXTREMITIES: No cyanosis, clubbing, edema. NEUROLOGIC: No focal sensory deficit. LABORATORY DATA: WBC 2.9, hemoglobin 13, hematocrit 39, platelet count 47. Sodium 140, potassium 3.2, chloride 102, CO2 32, BUN is 7, creatinine 0.57, glucose of 106. RADIOGRAPHIC STUDIES: CT chest showed calcified and noncalcified nodules with a consolidative airspace disease. IMPRESSION: 1. Calcified and noncalcified nodules with consolidative airspace disease, likely related to infectious process, need to rule out tuberculosis. 2. History of tuberculosis 10 years ago, treated for 6 months. 3. Tobacco abuse. 4. Probable chronic obstructive pulmonary disease. 5. Leukopenia and thrombocytopenia. 6. Elevated liver enzymes. 7. Cirrhosis of the liver secondary to ETOH abuse and hepatitis. 8. History of hepatitis B and C. 9. Chronic pancreatitis secondary to ETOH use. RECOMMENDATIONS: Discussed CT chest findings with the patient, which showed calcified and noncalcified scattered nodules with consolidative airspace disease with calcification both apices suggestive of mycobacterium infection. A neoplastic process is less likely. The patient is agreeable for bronchoscopy. Risks and benefits discussed with the patient. 1. Oxygen p.r.n. to maintain sats above 92%. 2. Bronchodilators in the form of DuoNeb q.4 plus q.2 hours p.r.n. for shortness of breath. 3. Continue with empiric antibiotics for now. He is currently on azithromycin and aztreonam. Monitor for signs of infection, which include fever and WBC. Followup sputum culture for AFB. QuantiFERON TB still pending. 4. We will need a pulmonary function test when stable to assess the severity of his obstructive lung disease. 5. The patient is counseled regarding smoking cessation. 6. Continue with airborne precautions. 7. Keep n.p.o. after midnight tomorrow night. 8. Continue other treatment plan per primary team. Thank you for this consultation and allowing us to participate in this patient's care. MD NEW Garg/ct , 04:00 PM , 04:13 PM
[2018-05-17] MEDS: Morphine Inj 4 MG/ML Vial IV.PUSH PRN ×7 (00:42→22:12)
[2018-05-17] MEDS: Aztreonam Inj 2 GM in Sodium Chloride 0.9% Inj 100 ML IV.SIG SCH ×3 (03:37→20:24)
[2018-05-17] MEDS: chlordiazePOXIDE 25 MG Capsule PO SCH ×3 (03:37→20:24)
[2018-05-17] MEDS: LORazepam 1 MG Tablet PO PRN ×3 (03:37→11:22)
[2018-05-17 07:31] LABS: Anion Gap 5 meq/L (5-15); Blood Urea Nitrogen 9 mg/dL (7-18); Calcium 8.7 mg/dL (8.5-10.1); Carbon Dioxide 31.4 meq/L (21.0-32.0); Chloride 101 meq/L (98-107); Glomerular Filtration Rate Greater Than 89 mL/min (>89); Glucose,Random 116 mg/dL (74-106); Magnesium 1.7 mg/dL (1.5-2.5); Potassium 4.1 meq/L (3.5-5.1); Sodium 137 meq/L (136-145)
[2018-05-17] MEDS: Multivitamin/Minerals Therapeutic Tablet PO SCH (08:16)
[2018-05-17] MEDS: Folic Acid 1 MG Tablet PO SCH (08:16)
[2018-05-17] MEDS: Senna/Docusate Sodium 8.6/50 MG Tablet PO SCH ×2 (08:16→21:30)
[2018-05-17] MEDS: guaiFENesin 600 MG ER Tablet PO SCH ×2 (08:16→20:24)
[2018-05-17] MEDS ORDERED: Temazepam 15 MG Capsule PO PRN (15:15)
--- NOTE | 2018-05-17 16:05 | P.PNPL ---
Subjective Interval history: Patient is lying in bed in NAD. Afebrile. On room air. Physical Exam Vital signs: Vital Signs 05/16/18 16:00 05/16/18 19:36 05/16/18 20:00 Temperature 97.9 F 97.3 F L Pulse Rate 89 81 98 H Respiratory Rate 16 16 20 Blood Pressure 121/88 138/74 Pulse Oximetry 96 98 97 05/17/18 00:00 05/17/18 07:48 05/17/18 07:59 Temperature 96.8 F L Pulse Rate 71 78 Respiratory Rate 20 16 18 Blood Pressure 130/85 Pulse Oximetry 100 98 05/17/18 08:00 05/17/18 08:16 05/17/18 11:19 Temperature 98.1 F Pulse Rate 72 Respiratory Rate 16 18 18 Blood Pressure 120/78 Pulse Oximetry 95 05/17/18 12:00 Temperature 98.0 F Pulse Rate 70 Respiratory Rate 14 Blood Pressure 119/88 Pulse Oximetry 98 Intake & Output 05/16/18 05/17/18 05/17/18 18:59 06:59 18:59 Intake Total 2310 / 2310 1860 / 1860 200 / 200 Output Total 1800 / 1800 Balance 510 / 510 1860 / 1860 200 / 200 Weight 69.8 kg Intake: IV 1350 / 1350 100 / 100 200 / 200 NS Inj 1,000 ML @ 80 mls/hr IV. 1000 / 1000 CONT .[id number] [facility] Rx#: [id number] Azithromycin Inj 500 MG In NS 250 / 250 Inj 250 ML @ 250 mls/hr IV.SIG Q24H [facility] Rx#:[id number] Azactam Inj 2 GM In NS Inj 100 100 / 100 100 / 100 200 / 200 ML @ 200 mls/hr IV.SIG Q8H [facility] Rx#:[id number] Oral 960 / 960 1760 / 1760 Output: Urine 1800 / 1800 Other: # Voids 5 Date of Last Bowel Movement 05/16/18 # Bowel Movements 1 - Constitutional no acute distress - Routine HEENT Exam Head: Present: normocephalic, atraumatic Eye: Present: EOMI, PERRL, normal accommodation ENT: Present: mucous membranes moist - Routine Neck Exam Present: supple, full ROM, trachea midline - Routine Respiratory Exam Present: CTA bilaterally - Routine Cardiovascular Exam Present: RRR, S1, S2 - Routine Abdominal Exam Present: soft, normoactive bowel sounds - Routine Extremities Exam Present: full ROM, pulses intact, normal capillary refill - Routine Skin Exam Present: intact - Routine Neurological Exam Present: alert, oriented X3, CN II-XII intact - Routine Psychiatric Exam Present: normal affect Assessment and Plan - Plan 1. Calcified and noncalcified nodules with consolidative airspace disease r/o infectious process, Tb. 2. History of tuberculosis 10 years ago, treated for 6 months. 3. Tobacco abuse. 4. Probable cOPD. 5. Leukopenia and thrombocytopenia. 6. Elevated liver enzymes. 7. Cirrhosis of the liver secondary to ETOH abuse and hepatitis. 8. History of hepatitis B and C. 9. Chronic pancreatitis secondary to ETOH use. Plan keep NPO after midnight for bronchoscopy tomorrow. CT chest showed calcified and noncalcified scattered nodules with consolidative airspace disease with calcification both apices suggestive of mycobacterium infection. Oxygen p.r.n. to maintain sats above 92%. Bronchodilators Abx-azithromycin and aztreonam. Monitor for signs of infection(fever and WBC). Followup on QuantiFERON TB - pending. Sputum AFB negative Continue with airborne precautions.
[2018-05-17] MEDS: Azithromycin Inj 500 MG in Sodium Chlor 0.9% Inj 250 ML IV.SIG SCH (16:22)
--- NOTE | 2018-05-17 20:37 | P.PN ---
Subjective Interval history: Follow up for possible TB. Patient is currently doing well. No fever, chills. He reports right shoulder pain and requests more pain medications. He also requests something for insomnia as well. Physical Exam Vital signs: Vital Signs 05/17/18 00:00 05/17/18 07:48 05/17/18 07:59 Temperature 96.8 F L Pulse Rate 71 78 Respiratory Rate 20 16 18 Blood Pressure 130/85 Pulse Oximetry 100 98 05/17/18 08:00 05/17/18 08:16 05/17/18 11:19 Temperature 98.1 F Pulse Rate 72 Respiratory Rate 16 18 18 Blood Pressure 120/78 Pulse Oximetry 95 05/17/18 12:00 05/17/18 13:30 05/17/18 14:11 Temperature 98.0 F Pulse Rate 70 Respiratory Rate 14 18 18 Blood Pressure 119/88 Pulse Oximetry 98 05/17/18 16:00 05/17/18 17:04 05/17/18 17:11 Temperature 98.0 F Pulse Rate 84 Respiratory Rate 17 18 18 Blood Pressure 116/79 Pulse Oximetry 96 05/17/18 20:00 Temperature Pulse Rate Respiratory Rate Blood Pressure Pulse Oximetry 98 Intake & Output 05/17/18 05/17/18 05/18/18 06:59 18:59 06:59 Intake Total 2260 / 2260 700 / 700 Balance 2260 / 2260 700 / 700 Weight 69.8 kg Intake: IV 100 / 100 450 / 450 Azithromycin Inj 500 MG In NS 250 / 250 Inj 250 ML @ 250 mls/hr IV.SIG Q24H [facility] Rx#:[id number] Azactam Inj 2 GM In NS Inj 100 100 / 100 200 / 200 ML @ 200 mls/hr IV.SIG Q8H [facility] Rx#:[id number] Oral 2160 / 2160 250 / 250 Other: # Voids 2 1 Date of Last Bowel Movement 05/16/18 Narrative: GENERAL: Well-developed, well-nourished in no distress SKIN: Warm and dry. CARDIOVASCULAR: Regular rate and rhythm. RESPIRATORY: No accessory muscle use. Clear to auscultation. Decreased breath sounds equal bilaterally. GASTROINTESTINAL: Abdomen soft, non-tender, nondistended. MUSCULOSKELETAL: Extremities without clubbing, cyanosis, or edema. No obvious deformities. NEUROLOGICAL: Awake and alert. No obvious cranial nerve deficits. Motor grossly within normal limits. Five out of 5 muscle strength in the arms and legs. Normal speech. Tremors noted PSYCHIATRIC: Appropriate mood and affect; insight and judgment normal. Results - Labs CBC & Chem 7: 05/16/18 07:02 05/17/18 06:20 Laboratory Results - last 24 hr 05/17/18 06:20 Sodium 137 Potassium 4.1 D Chloride 101 Carbon Dioxide 31.4 Anion Gap 5 BUN 9 Creatinine 0.65 Estimated GFR Greater than 89 Random Glucose 116 H Calcium 8.7 Magnesium 1.7 Microbiology 05/15/18 03:29 Sputum - Expectorated Sputum Acid Fast Bacilli Smear - Final No acid fast bacilli seen 05/15/18 22:00 Sputum - Expectorated Sputum Gram Stain - Final 05/15/18 22:00 Sputum - Expectorated Sputum Sputum Culture - Preliminary Heavy growth normal respiratory scarlett at 24 hours - Procedures None Assessment and Plan - Plan This is a 52-year-old male with history of chronic alcoholism, tobacco abuse, cirrhosis, chronic pancreatitis, hepatitis B and C, alcohol withdrawal seizures , bleeding ulcers, hypertension and rheumatoid arthritis. He presents to the emergency department complaining of chest pain, productive cough with reddish color, night sweats anorexia and weight loss of 30 pounds with history of tuberculosis. Chest CT shows calcified and noncalcified nodules scattered throughout both lungs with consolidative airspace disease with calcification both bases suggesting mycobacterial infection. Possible Tuberculosis -Appreciate Pulmonary input. Bronch tomorrow. NPO midnight. -CT chest --> calcified and noncalcified scattered nodules with consolidative infiltrates. -Continue Azithromycin and Aztreonam. TB QFT test pending. Leukopenia and thrombocytopenia -Likely secondary to infection, chronic alcoholism, cirrhosis, hepatitis B and C. Will monitor Alcohol abuse history of alcohol withdrawal seizures -Monitor for alcohol withdrawal. CIWA protocol. Continue Librium Insomnia - will start Restoril. Full code. Ambulation.
[2018-05-18] MEDS ORDERED: Dextrose 5%/NaCl 0.9% Inj 1,000 ML IV.CONT SCH
[2018-05-18] MEDS: Aztreonam Inj 2 GM in Sodium Chloride 0.9% Inj 100 ML IV.SIG SCH ×2 (05:08→12:14)
[2018-05-18] MEDS: chlordiazePOXIDE 25 MG Capsule PO SCH ×2 (05:08→12:13)
[2018-05-18] MEDS: LORazepam 1 MG Tablet PO PRN (05:08)
[2018-05-18] MEDS: Morphine Inj 4 MG/ML Vial IV.PUSH PRN ×3 (08:30→15:32)
[2018-05-18] MEDS: Multivitamin/Minerals Therapeutic Tablet PO SCH (08:31)
[2018-05-18] MEDS: guaiFENesin 600 MG ER Tablet PO SCH (08:31)
[2018-05-18] MEDS: Folic Acid 1 MG Tablet PO SCH (08:31)
[2018-05-18] MEDS: Senna/Docusate Sodium 8.6/50 MG Tablet PO SCH (08:31)
[2018-05-18 16:48] LABS: Baso # (Auto) 0.1 th/mm3 (0.0-0.2); Baso % (Auto) 1.8 % (0.0-2.0); Eos # (Auto) 0.1 th/mm3 (0.0-0.4); Eos % (Auto) 2.5 % (0.0-4.0); Hematocrit 38.4 % (39.0-51.0); Hemoglobin 12.8 gm/dL (13.0-17.0); Lymph # (Auto) 1.1 th/mm3 (1.0-4.8); Lymph % (Auto) 31.6 % (9.0-44.0); Mean Corpuscular HGB Conc 33.2 % (32.0-36.0); Mean Corpuscular Hemoglobin 29.5 pg (27.0-34.0); Mean Corpuscular Volume 88.8 fL (80.0-100.0); Mean Platelet Volume 9.1 fL (7.0-11.0); Mono # (Auto) 0.2 th/mm3 (0.0-0.9); Mono % (Auto) 6.8 % (0.0-8.0); Neut % (Auto) 57.3 % (16.0-70.0); Platelet Count 74 th/mm3 (150-450); Red Blood Count 4.33 mil/mm3 (4.50-5.90); Red Cell Distribution Width 17.5 % (11.6-17.2); White Blood Count 3.5 th/mm3 (4.0-11.0)
[2018-05-18] MEDS: Azithromycin Inj 500 MG in Sodium Chlor 0.9% Inj 250 ML IV.SIG SCH (16:57)
[2018-05-18 17:20] LABS: Chloride 104 meq/L (98-107); Potassium 3.8 meq/L (3.5-5.1); Sodium 139 meq/L (136-145)
[2018-05-18 17:22] LABS: Anion Gap 7 meq/L (5-15); Calcium 8.8 mg/dL (8.5-10.1); Carbon Dioxide 27.8 meq/L (21.0-32.0); Glucose,Random 137 mg/dL (74-106)
[2018-05-18 17:23] LABS: Blood Urea Nitrogen 11 mg/dL (7-18)
[2018-05-18 17:26] LABS: Glomerular Filtration Rate Greater Than 89 mL/min (>89)
--- NOTE | 2018-05-18 17:44 | P.PNPL ---
Subjective Interval history: 52 YOWM with H/O PTB, lung infilt Feels anxious no fever No CP Physical Exam Vital signs: Vital Signs 05/17/18 20:00 05/18/18 00:00 05/18/18 08:00 Temperature 98.6 F 98.4 F 96.3 F L Pulse Rate 77 77 76 Respiratory Rate 16 16 18 Blood Pressure 131/86 119/84 136/95 H Pulse Oximetry 98 97 96 05/18/18 12:00 05/18/18 14:18 05/18/18 16:00 Temperature 97.5 F L 97.6 F Pulse Rate 82 68 69 Respiratory Rate 18 16 18 Blood Pressure 115/86 117/82 Pulse Oximetry 94 L 98 96 Intake & Output 05/17/18 05/18/18 05/18/18 18:59 06:59 18:59 Intake Total 700 / 700 930 / 930 100 / 100 Balance 700 / 700 930 / 930 100 / 100 Intake: IV 450 / 450 200 / 200 100 / 100 Azithromycin Inj 500 MG In NS 250 / 250 Inj 250 ML @ 250 mls/hr IV.SIG Q24H [facility] Rx#:[id number] Azactam Inj 2 GM In NS Inj 100 200 / 200 200 / 200 100 / 100 ML @ 200 mls/hr IV.SIG Q8H [facility] Rx#:[id number] Oral 250 / 250 730 / 730 Other: # Voids 1 Date of Last Bowel Movement 05/16/18 GENERAL: WBWN Wm, NAD SKIN: Warm and dry. HEAD: Normocephalic. EYES: No scleral icterus. No injection or drainage. NECK: Supple, trachea midline. No JVD or lymphadenopathy. CARDIOVASCULAR: Regular rate and rhythm without murmurs, gallops, or rubs. RESPIRATORY: Breath sounds equal bilaterally. No accessory muscle use. GASTROINTESTINAL: Abdomen soft, non-tender, nondistended. MUSCULOSKELETAL: No cyanosis, or edema. BACK: Nontender without obvious deformity. No CVA tenderness. Assessment and Plan - Plan IMPRESSION: Lung infilt, r/o reactivation PTB H/O PTB Nicotine use COPD PLAN: Bronch today DW pt explained procedure and complications Cont Abx Aerosol nebs Smoking cessation.
[2018-05-18 17:48] LABS: INR 1.1 Ratio; Prothrombin Time 11.1 sec (9.8-11.6)
[2018-05-18] MEDS ORDERED: Succinylcholine Inj 100 MG/5 ML Syringe IV.PUSH ONE (18:37)
[2018-05-18] MEDS ORDERED: Lidocaine PF 1% Inj 5 ML Syringe INFILTRATN ONE (18:37)
--- NOTE | 2018-05-18 19:21 | P.PN ---
Subjective Interval history: Follow up for possible TB. Pt is doing well. No acute concerns. No fever, chills. Physical Exam Vital signs: Vital Signs 05/17/18 20:00 05/18/18 00:00 05/18/18 08:00 Temperature 98.6 F 98.4 F 96.3 F L Pulse Rate 77 77 76 Respiratory Rate 16 16 18 Blood Pressure 131/86 119/84 136/95 H Pulse Oximetry 98 97 96 05/18/18 12:00 05/18/18 14:18 05/18/18 16:00 Temperature 97.5 F L 97.6 F Pulse Rate 82 68 69 Respiratory Rate 18 16 18 Blood Pressure 115/86 117/82 Pulse Oximetry 94 L 98 96 Intake & Output 05/18/18 05/18/18 05/19/18 06:59 18:59 06:59 Intake Total 930 / 930 100 / 100 Balance 930 / 930 100 / 100 Intake: IV 200 / 200 100 / 100 Azactam Inj 2 GM In NS Inj 100 200 / 200 100 / 100 ML @ 200 mls/hr IV.SIG Q8H [facility] Rx#:[id number] Oral 730 / 730 Other: # Voids 3 # Bowel Movements 1 Narrative: GENERAL: Well-developed, well-nourished in no distress SKIN: Warm and dry. CARDIOVASCULAR: Regular rate and rhythm. RESPIRATORY: No accessory muscle use. Clear to auscultation. Decreased breath sounds equal bilaterally. GASTROINTESTINAL: Abdomen soft, non-tender, nondistended. MUSCULOSKELETAL: Extremities without clubbing, cyanosis, or edema. No obvious deformities. NEUROLOGICAL: Awake and alert. No obvious cranial nerve deficits. Motor grossly within normal limits. Five out of 5 muscle strength in the arms and legs. Normal speech. Tremors noted PSYCHIATRIC: Appropriate mood and affect; insight and judgment normal. Results - Labs CBC & Chem 7: 05/18/18 16:25 05/18/18 16:25 Laboratory Results - last 24 hr 05/18/18 05/18/18 05/18/18 16:25 16:25 16:25 CBC w Diff Slide review pending WBC 3.5 L RBC 4.33 L Hgb 12.8 L Hct 38.4 L MCV 88.8 MCH 29.5 MCHC 33.2 RDW 17.5 H Plt Count 74 L D MPV 9.1 Neut % (Auto) 57.3 Lymph % (Auto) 31.6 [place] % (Auto) 6.8 Eos % (Auto) 2.5 Baso % (Auto) 1.8 Neut # (Auto) 2.0 Lymph # (Auto) 1.1 [place] # (Auto) 0.2 Eos # (Auto) 0.1 Baso # (Auto) 0.1 WBC Differential . Diff Scan Auto diff confirmed Differential Comment . PT 11.1 INR 1.1 Sodium 139 Potassium 3.8 Chloride 104 Carbon Dioxide 27.8 Anion Gap 7 BUN 11 Creatinine 0.67 Estimated GFR Greater than 89 Random Glucose 137 H Calcium 8.8 Microbiology 05/15/18 22:00 Sputum - Expectorated Sputum Gram Stain - Final 05/15/18 22:00 Sputum - Expectorated Sputum Sputum Culture - Final Heavy growth normal respiratory scarlett - Procedures None Assessment and Plan - Plan This is a 52-year-old male with history of chronic alcoholism, tobacco abuse, cirrhosis, chronic pancreatitis, hepatitis B and C, alcohol withdrawal seizures , bleeding ulcers, hypertension and rheumatoid arthritis. He presents to the emergency department complaining of chest pain, productive cough with reddish color, night sweats anorexia and weight loss of 30 pounds with history of tuberculosis. Chest CT shows calcified and noncalcified nodules scattered throughout both lungs with consolidative airspace disease with calcification both bases suggesting mycobacterial infection. Possible Tuberculosis -Appreciate Pulmonary input. Bronch scheduled for today. -CT chest --> calcified and noncalcified scattered nodules with consolidative infiltrates. -Continue Azithromycin and Aztreonam. TB QFT test pending. Leukopenia and thrombocytopenia -Likely secondary to infection, chronic alcoholism, cirrhosis, hepatitis B and C. Will monitor Alcohol abuse history of alcohol withdrawal seizures -Monitor for alcohol withdrawal. CIWA protocol. Continue Librium Insomnia - will start Restoril. Full code. Ambulation.
--- NOTE | 2018-05-18 19:57 | XR ---
EXAM DATE: 05/18/2018 7:53 PM EDT AGE/SEX: 52 years / Male INDICATIONS: Evaluate for pneumothorax. Status post bronchoscopy. CLINICAL DATA: This is the patient's initial encounter. Patient reports that signs and symptoms have been present for 1 day and indicates a pain score of 0/10. MEDICAL/SURGICAL HISTORY: . Chronic obstructive pulmonary disease. Hepatitis B. Hepatitis C. Ci rrhosis, pancreatitis and history of tuberculosis. . Bronchoscopy. COMPARISON: [facility], CHEST 1V SINGLE AP, 05/15/2018. . FINDINGS: The heart size is normal. There are calcified densities seen throughout the upper lungs bilaterally. These are stable. There does appear to be some scarring in the upper lungs with retraction of the hil ar regions superiorly. The mid and lower lungs are grossly clear. No effusion is seen. A pneumothorax is not seen. CONCLUSION: Chronic calcifications. No acute abnormality is seen. Electronically signed by: Wesly Magana MD 05/18/2018 7:56 PM EDT
--- NOTE | 2018-05-18 20:19 | P.AMA ---
AMA Note - AMA Note AMA Statement: Patient Porfirio Pink has decided to leave the hospital against medical advice. This patient has the capacity to refuse care and understands the risks of leaving, including permanent disability and/or , and has had an opportunity to ask questions about his/her condition. The patient has been informed that he/she may return for care at any time, and follow up has been arranged/advised. - AMA Note Discharge Disposition: Left Against Medical Advice Patient Condition on Discharge: Stable
--- NOTE | 2018-05-18 21:04 | MP ---
cc: Jonas Ash MD DATE OF OPERATION: 05/18/2018 PROCEDURE: Bronchoscopy. PREOPERATIVE DIAGNOSIS: Bilateral lung infiltrates, rule out tuberculosis. POSTOPERATIVE DIAGNOSIS: Bilateral infiltrate. No endobronchial lesions. DESCRIPTION OF PROCEDURE: Informed consent was obtained from the patient. Procedure complications including complication of pneumothorax requiring chest tube, bleeding complication, injury to the blood vessel, lungs, nerves, arrhythmia, hypoxia, need for ventilator support was explained. He consented for the procedure. The patient was brought to the operating room under general anesthesia. Endotracheal tube was placed by anesthesia. The bronchoscope entered endotracheal tube. Main bay is sharp. Bronchoscope advanced to the right lung. Right upper, middle, lower lobes were visualized. Small amount of mucus was suctioned. Right upper lobe washing was done. Bronchoscope was advanced to the left lung. Left upper, lingula and lower lobe were visualized. No endobronchial lesion was seen. Left upper lobe washings were done. Bronchial washing is sent for routine culture, AFB, fungal culture and cytology. He tolerated the procedure well. Postprocedure chest x-ray ordered to rule out pneumothorax. MD LAURENCE Peralta/ , 06:58 PM , 07:05 PM
--- NOTE | 2018-05-19 08:39 | P.DS ---
Date of admission: 05/15/18 16:16 Primary care physician: No Primary Care Physician Brief History from admission: This is a 52-year-old male with history of chronic alcoholism, tobacco abuse, cirrhosis, chronic pancreatitis, hepatitis B and C, alcohol withdrawal seizures , bleeding ulcers, hypertension and rheumatoid arthritis. Family history of coronary artery disease. Patient presents to the emergency department complaining of chest pain for 1 week. It is constant sharp pleuritic right- sided pain worse with coughing without radiation associated with shortness of breath. He also reports of productive cough with reddish color, night sweats anorexia and weight loss of 30 pounds in the past month patient has history of tuberculosis over 10 years ago treated for 6 months. He denies sick contacts but lives with his mother and stepfather. Chest CT shows calcified and noncalcified nodules scattered throughout both lungs with consolidative airspace disease with calcification both bases suggesting mycobacterial infection. Patient has been started on IV Rocephin and Zithromax and recommended admission for further workup. All other systems reviewed negative DS: Summary Hospital Course: This is a 52-year-old male with history of chronic alcoholism, tobacco abuse, cirrhosis, chronic pancreatitis, hepatitis B and C, alcohol withdrawal seizures , bleeding ulcers, hypertension and rheumatoid arthritis. He presents to the emergency department complaining of chest pain, productive cough with reddish color, night sweats anorexia and weight loss of 30 pounds with history of tuberculosis. Chest CT shows calcified and noncalcified nodules scattered throughout both lungs with consolidative airspace disease with calcification both bases suggesting mycobacterial infection. Patient was evaluated by Pulmonary and a Bronch was done on 05/18/2018. Patient left AMA after bronch. MTB PCR was not detected. - Time Spent with Patient Total time spent providing and/or coordinating discharge services: Less than 30 minutes - Quality: VTE Deep Vein Thrombosis/Pulmonary Embolism Present on Admission: No Exam Vital signs: Vital Signs 05/18/18 12:00 05/18/18 14:18 05/18/18 16:00 Temperature 97.5 F L 97.6 F Pulse Rate 82 68 69 Respiratory Rate 18 16 18 Blood Pressure 115/86 117/82 Pulse Oximetry 94 L 98 96 05/18/18 18:57 05/18/18 19:10 Temperature 98.6 F Pulse Rate 85 86 Respiratory Rate 16 16 Blood Pressure 119/75 110/70 Pulse Oximetry 98 Intake & Output 05/18/18 05/19/18 05/19/18 18:59 06:59 18:59 Intake Total 500 / 500 Balance 500 / 500 Intake: IV 100 / 100 Azactam Inj 2 GM In NS Inj 100 100 / 100 ML @ 200 mls/hr IV.SIG Q8H [facility] Rx#:[id number] Anesthesia Amount 400 / 400 Other: # Voids 3 # Bowel Movements 1 Results Procedures completed during hospitalization: None Pending studies at discharge: Pending at discharge 05/18/18 Cytology [PTH] Routine Labs on day of discharge: Labs from last 24 hours 05/18/18 05/18/18 05/18/18 16:25 16:25 16:25 CBC w Diff Slide review pending WBC 3.5 L RBC 4.33 L Hgb 12.8 L Hct 38.4 L MCV 88.8 MCH 29.5 MCHC 33.2 RDW 17.5 H Plt Count 74 L D MPV 9.1 Neut % (Auto) 57.3 Lymph % (Auto) 31.6 [place] % (Auto) 6.8 Eos % (Auto) 2.5 Baso % (Auto) 1.8 Neut # (Auto) 2.0 Lymph # (Auto) 1.1 [place] # (Auto) 0.2 Eos # (Auto) 0.1 Baso # (Auto) 0.1 WBC Differential . Diff Scan Auto diff confirmed Differential Comment . PT 11.1 INR 1.1 Sodium 139 Potassium 3.8 Chloride 104 Carbon Dioxide 27.8 Anion Gap 7 BUN 11 Creatinine 0.67 Estimated GFR Greater than 89 Random Glucose 137 H Calcium 8.8 M.tuberculosis DNA (PCR) Rifampin Resistance 05/18/18 14:30 CBC w Diff WBC RBC Hgb Hct MCV MCH MCHC RDW Plt Count MPV Neut % (Auto) Lymph % (Auto) [place] % (Auto) Eos % (Auto) Baso % (Auto) Neut # (Auto) Lymph # (Auto) [place] # (Auto) Eos # (Auto) Baso # (Auto) WBC Differential Diff Scan Differential Comment PT INR Sodium Potassium Chloride Carbon Dioxide Anion Gap BUN Creatinine Estimated GFR Random Glucose Calcium M.tuberculosis DNA (PCR) Not detected Rifampin Resistance ND - Impressions ITS Impressions Chest CT 05/15/18 13:32 CONCLUSION: Calcified and noncalcified nodules scattered throughout both lungs with consolidative airspace disease with calcification both apices suggesting mycobacterium infection. Neoplastic disease is felt to be less likely. I have chest films for comparison which show some compression. I have no CT scan for direct comparison. Chest X-Ray 05/18/18 18:56 CONCLUSION: Chronic calcifications. No acute abnormality is seen. Discharge Plan - Discharge Disposition Patient Disposition: Left Against Medical Advice - Discharge Condition Condition: Stable - Discharge Order Discharge Orders: AMA Discharge (Routine); Ordered 05/18/18 Ordered By: Lucy Cole - Physicians Team Primary Care Provider: Primary Care Kareen Wilson Attending Provider: Eloina Fuentes Other Providers: Jonas Ash MD ; Neisha Modi MD
[2018-05-19 19:35] LABS: TB1 Ag minus Nil Result 7.97 IU/mL
== END 2018-05-18 20:01 | disposition left against medical advice (07) ==
LOC: PHED 11:52 → PHEDA 16:16 → PH3 17:23
PROVIDERS: ADMIT Hospitalist; ATTEND Hospitalist

== ENCOUNTER 2018-07-02 16:41 | Inpatient (IN) ==
[2018-07-03] MEDS ORDERED: Sod Chloride 0.9% Inj 1,000 ML IV.SIG ONE (01:38)
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
[2018-07-03] MEDS ORDERED: LORazepam 1 MG Tablet PO PRN (01:41)
--- NOTE | 2018-07-03 02:04 | XR ---
EXAM DATE: 07/03/2018 1:38 AM EDT AGE/SEX: 52 years / Male INDICATIONS: Right elbow pain post fall today CLINICAL DATA: This is the patient's initial encounter. Patient reports that signs and symptoms have been present for 1 day and indicates a pain score of 5/10. MEDICAL/SURGICAL HISTORY: None. None. COMPARISON: No prior exams available for comparison. FINDINGS: Bony structures are intact and in normal alignment. Joints are intact without dislocation or signifi cant arthropathy. Osseous density is normal. Soft tissues are unremarkable. No radiopaque foreign bodies seen. CONCLUSION: No acute findings. Electronically signed by: Du Nieves MD 07/03/2018 2:03 AM EDT
--- NOTE | 2018-07-03 02:06 | XR ---
EXAM DATE: 07/03/2018 1:38 AM EDT AGE/SEX: 52 years / Male INDICATIONS: Right dorsal foot pain post fall today CLINICAL DATA: This is the patient's initial encounter. Patient reports that signs and symptoms have been present for 1 day and indicates a pain score of 5/10. MEDICAL/SURGICAL HISTORY: None. None. COMPARISON: No prior exams available for comparison. FINDINGS: Bony structures are intact and in normal alignment. Osseous density is normal. Soft tissues are unre markable. No radiopaque foreign bodies seen. CONCLUSION: No acute findings. Previous fixation distal fibula. Electronically signed by: Du Nieves MD 07/03/2018 2:05 AM EDT
--- NOTE | 2018-07-03 02:07 | XR ---
EXAM DATE: 07/03/2018 1:38 AM EDT AGE/SEX: 52 years / Male INDICATIONS: Right anterior knee pain post fall today CLINICAL DATA: This is the patient's initial encounter. Patient reports that signs and symptoms have been present for 1 day and indicates a pain score of 5/10. MEDICAL/SURGICAL HISTORY: None. None. COMPARISON: No prior exams available for comparison. FINDINGS: Bony structures are intact and in normal alignment. Joints are intact without dislocation or signifi cant arthropathy. Osseous density is normal. Soft tissues are unremarkable. No radiopaque foreign bodies seen. CONCLUSION: No acute findings. Electronically signed by: Du Nieves MD 07/03/2018 2:05 AM EDT
[2018-07-03 02:33] LABS: Baso # (Auto) 0.1 th/mm3 (0.0-0.2); Eos # (Auto) 0.1 th/mm3 (0.0-0.4); Eos % (Auto) 1.9 % (0.0-4.0); Hematocrit 41.9 % (39.0-51.0); Hemoglobin 14.6 gm/dL (13.0-17.0); Lymph % (Auto) 36.3 % (9.0-44.0); Mean Corpuscular HGB Conc 34.8 % (32.0-36.0); Mean Corpuscular Hemoglobin 32.5 pg (27.0-34.0); Mean Corpuscular Volume 93.3 fL (80.0-100.0); Mean Platelet Volume 7.9 fL (7.0-11.0); Mono # (Auto) 0.6 th/mm3 (0.0-0.9); Mono % (Auto) 10.7 % (0.0-8.0); Neut # (Auto) 2.7 th/mm3 (1.8-7.7); Neut % (Auto) 50.1 % (16.0-70.0); Platelet Count 154 th/mm3 (150-450); Red Blood Count 4.49 mil/mm3 (4.50-5.90); Red Cell Distribution Width 19.9 % (11.6-17.2); White Blood Count 5.4 th/mm3 (4.0-11.0)
--- NOTE | 2018-07-03 02:44 | CT ---
EXAM DATE: 07/03/2018 1:57 AM EDT AGE/SEX: 52 years / Male INDICATIONS: Fall. Hit head. CLINICAL DATA: This is the patient's initial encounter. Patient reports that signs and symptoms have been present for 1 day and indicates a pain score of 4/10. MEDICAL/SURGICAL HISTORY: None. None. RADIATION DOSE: 56.35 CTDI (mGy) COMPARISON: No prior exams available for comparison. TECHNIQUE: CT of the head without contrast. Using automated exposure control and adjustment of the mA and/or kV according to patient size, radiation dose was kept as low as reasonably achievable to ob tain optimal diagnostic quality images. DICOM format image data is available electronically for revi ew and comparison. FINDINGS: Cerebrum: The ventricles are normal for age. No evidence of midline shift, mass lesion, hemorrhage or acute infarction. No extraaxial fluid collections are seen. Posterior Fossa: The cerebellum and brainstem are intact. The 4th ventricle is midline. The cerebe llopontine angle is unremarkable. Extracranial: The visualized portion of the orbits is intact. Skull: The calvaria is intact. No evidence of skull fracture. CONCLUSION: 1. No acute intracranial abnormalities. . Electronically signed by: Du Nieves MD 07/03/2018 2:43 AM EDT
[2018-07-03 02:45] LABS: Alanine Aminotransferase 112 U/L (12-78)
[2018-07-03 02:48] LABS: Alkaline Phosphatase 122 U/L (45-117); Total Protein 8.3 g/dL (6.4-8.2)
[2018-07-03 03:00] LABS: Albumin 3.9 g/dL (3.4-5.0); Anion Gap 13 meq/L (5-15); Aspartate Aminotransferase 482 U/L (15-37); Blood Urea Nitrogen 6 mg/dL (7-18); Calcium 8.7 mg/dL (8.5-10.1); Chloride 102 meq/L (98-107); Glomerular Filtration Rate Greater Than 89 mL/min (>89); Glucose,Random 138 mg/dL (74-106); Magnesium 1.5 mg/dL (1.5-2.5); Sodium 139 meq/L (136-145)
[2018-07-03] MEDS ORDERED: Pantoprazole Inj 40 MG Vial IV.PUSH ONE (03:35)
[2018-07-03] MEDS ORDERED: Thiamine Inj 100 MG in Sodium Chlor 0.9% Inj 100 ML IV.SIG ONE (03:35)
[2018-07-03] MEDS ORDERED: Sod Chloride 0.9% Inj 1,000 ML IV.SIG SCH (03:45)
[2018-07-03] MEDS ORDERED: Bisacodyl 10 MG Supp RECTAL PRN (06:36)
[2018-07-03] MEDS ORDERED: Sod Chloride 0.9% Inj 1,000 ML IV.CONT SCH (06:45)
[2018-07-03] MEDS: Acetaminophen 325 MG Tablet PO PRN ×3 (08:45→17:27)
[2018-07-03] MEDS: Senna/Docusate Sodium 8.6/50 MG Tablet PO SCH ×2 (10:02→20:02)
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
[2018-07-03] MEDS ORDERED: chlordiazePOXIDE 25 MG Capsule PO ONE (15:00)
[2018-07-03] MEDS: chlordiazePOXIDE 25 MG Capsule PO SCH (16:43)
[2018-07-03] MEDS: Haloperidol Inj 5 MG/ML Ampul IV.PUSH PRN (22:56)
[2018-07-04] MEDS: chlordiazePOXIDE 25 MG Capsule PO SCH ×2 (02:56→09:18)
[2018-07-04] MEDS: Haloperidol Inj 5 MG/ML Ampul IV.PUSH PRN (04:41)
[2018-07-04 05:49] LABS: Baso # (Auto) 0.1 th/mm3 (0.0-0.2); Baso % (Auto) 3.7 % (0.0-2.0); Eos # (Auto) 0.1 th/mm3 (0.0-0.4); Eos % (Auto) 3.6 % (0.0-4.0); Hemoglobin 12.8 gm/dL (13.0-17.0); Lymph # (Auto) 1.5 th/mm3 (1.0-4.8); Lymph % (Auto) 45.5 % (9.0-44.0); Mean Corpuscular HGB Conc 33.6 % (32.0-36.0); Mean Corpuscular Volume 95.2 fL (80.0-100.0); Mono # (Auto) 0.3 th/mm3 (0.0-0.9); Mono % (Auto) 8.5 % (0.0-8.0); Neut # (Auto) 1.2 th/mm3 (1.8-7.7); Neut % (Auto) 38.7 % (16.0-70.0); Platelet Count 104 th/mm3 (150-450); Red Blood Count 3.99 mil/mm3 (4.50-5.90); White Blood Count 3.2 th/mm3 (4.0-11.0)
[2018-07-04 06:24] LABS: Alanine Aminotransferase 66 U/L (12-78); Albumin 3.3 g/dL (3.4-5.0); Anion Gap 11 meq/L (5-15); Aspartate Aminotransferase 249 U/L (15-37); Blood Urea Nitrogen 5 mg/dL (7-18); Carbon Dioxide 30.1 meq/L (21.0-32.0); Chloride 104 meq/L (98-107); Glomerular Filtration Rate Greater Than 89 mL/min (>89); Glucose,Random 101 mg/dL (74-106); Sodium 145 meq/L (136-145)
[2018-07-04 06:25] LABS: Alkaline Phosphatase 94 U/L (45-117); Total Protein 6.7 g/dL (6.4-8.2)
[2018-07-04] MEDS ORDERED: Folic Acid 1 MG Tablet PO SCH (09:00)
[2018-07-04] MEDS ORDERED: Spironolactone 50 MG Tablet PO SCH (09:00)
[2018-07-04] MEDS: Senna/Docusate Sodium 8.6/50 MG Tablet PO SCH (09:17)
[2018-07-04] MEDS ORDERED: Magnesium Sulfate Inj 4 GM in Sodium Chlor 0.9% Inj 92 ML IV.SIG ONE ×2 (10:13→14:00)
[2018-07-04] MEDS: Potassium Chlor 20 mEq Premix 20 MEQ/100 ML PIGGYBACK IV.SIG SCH ×2 (10:31→13:07)
--- NOTE | 2018-07-04 15:10 | P.PN ---
Subjective Interval history: Follow-up for alcohol withdrawal, electrolyte imbalance. Patient is currently doing well. He is tolerating diet well. Denies any chest pain, shortness of breath, fever or chills. He does not have significant tremors. Wants to go home. He denies any suicidal or homicidal ideations. He also stresses strong desire to quit alcohol. Physical Exam Vital signs: Vital Signs 07/03/18 16:00 07/03/18 20:00 07/03/18 21:30 Temperature 97.9 F 98.2 F Pulse Rate 76 74 Respiratory Rate 14 20 Blood Pressure 147/90 H 159/109 H Pulse Oximetry 98 99 99 07/04/18 00:00 07/04/18 01:00 07/04/18 02:00 Temperature Pulse Rate 60 60 59 L Respiratory Rate 29 H 8 L 22 Blood Pressure 121/82 118/85 120/86 Pulse Oximetry 96 96 97 07/04/18 03:00 07/04/18 03:02 07/04/18 04:00 Temperature 99.2 F Pulse Rate 60 60 59 L Respiratory Rate 19 27 H 30 H Blood Pressure 130/91 H 124/87 Pulse Oximetry 95 96 96 07/04/18 05:00 07/04/18 06:00 07/04/18 06:01 Temperature 99.2 F Pulse Rate 60 59 L 58 L Respiratory Rate 28 H 27 H 27 H Blood Pressure 117/81 135/85 Pulse Oximetry 96 97 97 07/04/18 07:00 07/04/18 08:00 07/04/18 09:00 Temperature 98.2 F Pulse Rate 59 L 59 L 59 L Respiratory Rate 32 H 30 H 26 H Blood Pressure 123/83 116/85 121/82 Pulse Oximetry 99 95 97 07/04/18 10:00 07/04/18 11:00 Temperature Pulse Rate 57 L 73 Respiratory Rate 30 H 28 H Blood Pressure 103/71 108/86 Pulse Oximetry 100 99 Intake & Output 07/03/18 07/04/18 07/04/18 18:59 06:59 18:59 Intake Total 1240 / 1240 400 / 400 100 / 100 Output Total 1999 / 1999 1000 / 1000 0 / 0 Balance -760 / -760 -600 / -600 100 / 100 Weight 84.1 kg 81.5 kg Intake: IV 1000 / 1000 100 / 100 NS Inj 1,000 ML @ 100 mls/hr IV 1000 / 1000 .CONT .Q10H S[facility] Rx#:[id number] KCl 20 mEq Premix Inj 20 meq In 100 / 100 100 ml @ 50 mls/hr IV.SIG Q2H [facility] Rx#:[id number] Oral 240 / 240 400 / 400 0 / 0 Output: Urine 1999 / 1999 1000 / 1000 0 / 0 Other: Date of Last Bowel Movement 06/26/18 07/01/18 07/04/18 # Bowel Movements 0 Weight On Admission 84.1 kg Narrative: GENERAL: Alert, oriented x3, NAD. SKIN: Warm and dry. HEAD: Normocephalic. EYES: No scleral icterus. No injection or drainage. NECK: Supple, trachea midline. No JVD or lymphadenopathy. CARDIOVASCULAR: Regular rate and rhythm without murmurs, gallops, or rubs. RESPIRATORY: Breath sounds equal bilaterally. No accessory muscle use. GASTROINTESTINAL: Abdomen soft, non-tender, nondistended. MUSCULOSKELETAL: No cyanosis, or edema. BACK: Nontender without obvious deformity. No CVA tenderness. Results - Labs CBC & Chem 7: 07/04/18 05:30 07/04/18 05:30 Laboratory Results - last 24 hr 07/03/18 07/04/18 07/04/18 17:10 05:30 05:30 WBC 3.2 L RBC 3.99 L Hgb 12.8 L Hct 38.0 L MCV 95.2 MCH 32.0 MCHC 33.6 RDW 19.0 H Plt Count 104 L D MPV 8.0 Neut % (Auto) 38.7 Lymph % (Auto) 45.5 H Mcmullen % (Auto) 8.5 H Eos % (Auto) 3.6 Baso % (Auto) 3.7 H Neut # (Auto) 1.2 L Lymph # (Auto) 1.5 Mcmullen # (Auto) 0.3 Eos # (Auto) 0.1 Baso # (Auto) 0.1 WBC Differential . Differential Comment Auto diff final Sodium 145 Potassium 3.0 L D Chloride 104 Carbon Dioxide 30.1 Anion Gap 11 BUN 5 L Creatinine 0.65 Estimated GFR Greater than 89 Random Glucose 101 Calcium 8.0 L Total Bilirubin 2.8 H AST 249 H ALT 66 Alkaline Phosphatase 94 Total Protein 6.7 D Albumin 3.3 L D Nasal Screen MRSA (PCR) Not detected Assessment and Plan - Assessment (1) Alcohol withdrawal Code(s): F10.239 - Alcohol dependence with withdrawal, unspecified Status: Acute (2) Alcohol dependence Code(s): F10.20 - Alcohol dependence, uncomplicated Status: Chronic (3) Hypertension Code(s): I10 - Essential (primary) hypertension Status: Acute (4) Cirrhosis Code(s): K74.60 - Unspecified cirrhosis of liver Status: Chronic - Plan Mr. Pink is a pleasant 42-year-old male with a history of alcohol abuse who was admitted to the hospital due to alcohol intoxication/withdrawal. Patient is currently doing well. He denies any chest pain, shortness of breath , fever or chills. He also does not have any significant tremors. He would like to go home. 1. Active alcohol withdrawal with a history of alcohol dependence Continue CIWA protocol. Will give him Ativan 1mg for 3 days (#10). 2. Hypertension, uncontrolled likely due to alcohol withdrawal Initiate clonidine 3. Right elbow and foot contusion status post fallx-rays and imaging negative continue pain control. 4. Elevated transaminases likely due to acute alcohol abuse and history of liver cirrhosis. LFTs are trending down. No evidence of Cirrhosis. 5. History of rheumatoid arthritiscontinue with pain control. Full code. Ambulation. Discharge patient to home Condition on discharge: Improved Regular Diet as tolerated Ad Sonja activity Rx written: Lorazepam 1 mg every 8 hours as needed #10 Multivitamin with folic acid 1 tablet p.o. daily Thiamine 100 mg p.o. twice daily. Follow-up with primary care physician within 1-2 weeks. (1) Alcohol withdrawal Qualifiers: Complication of substance-induced condition: uncomplicated Qualified Code(s) : F10.230 - Alcohol dependence with withdrawal, uncomplicated (3) Hypertension Qualifiers: Hypertension type: unspecified secondary hypertension Qualified Code(s): I15.9 - Secondary hypertension, unspecified; I15 - Secondary hypertension (4) Cirrhosis Qualifiers: Hepatic cirrhosis type: alcoholic cirrhosis
[2018-07-04 15:23] VITALS: BP 128/82; PULSE 66; RESP 30; TEMP 97.7; O2SAT 100
== END 2018-07-04 16:20 | disposition home or self-care (01) ==
LOC: NEPC 16:41 → NEDA 07-03 06:37 → N06 07-03 07:58 → HIMC 07-03 17:15
PROVIDERS: ADMIT Hospitalist; ATTEND Hospitalist